=== PATIENT | female | born 1995 | race Caucasian/White ===

== ENCOUNTER 2017-09-16 23:30 | Emergency (ER) | payer OTHER, MEDICAID, SELFPAY ==
[2017-09-16 23:30] VITALS: BP 143/88; PULSE 74; RESP 16; TEMP 36.3; O2SAT 97; BMI 35.2
--- NOTE | 2017-09-16 23:50 | ED.VISSUMM ---
- ER Visit Summary Date of Service: 09/16/17 Chief Complaint: [] Left-sided rib and hip pain History of Present Illness: The patient is a 22 F patient tripped and slid down the steps 2 days ago and having pain in her left lateral ribs and hip. She has been using intermittent ibuprofen with moderate relief of symptoms. Comes in for further evaluation. She wanted to make sure that she did not do any significant damage as she works in a [employer]. Denies any other complaints Physical Examination: [] Vital signs reviewed General: Well-nourished well-developed Head: Normocephalic atraumatic Eyes: Pupils equal round and reactive to light extraocular movements intact ENT: TMs clear no hemotympanum no trauma Neck: Nontender full range of motion Cardiovascular: Regular rate rhythm no murmurs normal S1-S2 Respiratory: No distress clear to auscultation bilaterally chest nontender Abdomen: Soft nontender nondistended normal bowel sounds no masses Back: Mild tenderness left lateral iliac crest and left lateral ribs without swelling deformity. But no bony step-off or crepitus. Extremities: Nontender active range of motion ?4 extremities no trauma Skin: Normal color no trauma Neuro alert oriented cranial nerves II through XII intact normal strength sensation reflexes Test Results: [] Emergency Department Course and Treatment: [] I believe the patient just has contusions. Discussed x-rays but I do not feel they are necessary. Given a shot of Toradol. She will continue symptomatic management was given lifting restrictions Treatment Plan: [] Disposition: [] Impression: [] Left-sided rib pain after fall Left-sided hip pain after fall This note was generated with [employer] dictation software. It may contain incorrect words, spelling, and punctuation that were not noted in review of the chart prior to signing ED Disposition - Plan for ED Patient: Chief Complaint: Fall Referrals: Austin Castro MD [Primary Care Provider] -
--- NOTE | 2017-09-16 23:51 | ED.DEP ---
ED Disposition - Plan for ED Patient: Disposition: Home or Assisted Living Chief Complaint: Fall Instructions: Contusions (Bruises) Referrals: Austin Castro MD [Primary Care Provider] -
[2017-09-17] MEDS: Ketorolac 60 MG/2 ML Vial IM (00:07)
[2017-09-17 00:38] VITALS: RESP 18
== END 2017-09-17 00:38 | disposition home or self-care (01) ==
LOC: ED 09-17 00:09
PROVIDERS: Emergency Provider Emergency Medicine; Family Provider Family Medicine; PCP Family Medicine
DX: S70.02XA Contusion of left hip, initial encounter (principal); S20.212A Contusion of left front wall of thorax, initial encounter; M25.552 Pain in left hip; R07.81 Pleurodynia; E66.9 Obesity, unspecified; Z79.899 Other long term (current) drug therapy; W10.9XXA Fall (on) (from) unspecified stairs and steps, initial encounter; Y93.01 Activity, walking, marching and hiking; Y92.89 Other specified places as the place of occurrence of the external cause; Y99.8 Other external cause status
CPT/HCPCS: 96372; 99282

== ENCOUNTER → 2017-09-19 13:46 | Outpatient (CLI) | payer OTHER, MEDICAID, SELFPAY ==
[2017-09-19 15:30] LABS: Hematocrit 37.8 % (37-47); Hemoglobin 12.3 g/dl (12.0-15.0); Mean Corp Hgb Conc 32.5 g/gl (32-36); Mean Corpuscular Hgb 26.2 pg (27.0-32.0); Mean Corpuscular Volume 80.6 fL (81-99); Mean Platelet Vol. 11.6 fl (6.2-12.0); Platelet Count 238 K/mm3 (150-450); RBC Distribution Width CV 15.6 % (11.6-14.6); RBC Distribution Width SD 45.5 fl (35.1-43.9); Red Blood Count 4.69 M/mm3 (4.2-5.4); White Blood Count 8.3 K/mm3 (4.4-11.0)
[2017-09-19 15:36] LABS: Scan Indicated on CBC? Y/N NO
[2017-09-19 15:56] LABS: Ferritin 7 ng/mL (8-252); Iron 94 ug/dL (50-170); Iron Binding Capacity,Total 444 ug/dL (250-450)
== END ==
PROVIDERS: Family Medicine; Family Provider Family Medicine; PCP Family Medicine; Visit Provider Family Medicine
DX: D50.9 Iron deficiency anemia, unspecified (principal)
CPT/HCPCS: 36415; 82728; 83540; 83550; 85027

== ENCOUNTER 2017-10-09 00:16 | Emergency (ER) | payer OTHER, MEDICAID, SELFPAY ==
[2017-10-09 00:16] VITALS: BP 137/81; PULSE 78; RESP 14; TEMP 36.7; O2SAT 96; BMI 39.9
--- NOTE | 2017-10-09 00:39 | ED.VISSUMM ---
- ER Visit Summary Date of Service: 10/09/17 Chief Complaint: Back pain History of Present Illness: The patient is a 22 F with urinary frequency that started yesterday, which is common when she gets urinary tract infections, as his lack of dysuria, hematuria, abdominal pain. However today, she developed occasional throbbing in her low back, bilaterally. No nausea, vomiting, fevers. Last normal menstrual period was about 3 weeks ago, she is on control pills and is regular because of that, she has had no vaginal symptoms recently. Physical Examination: Well-appearing in no acute distress. Normal vital signs. Afebrile. Abdomen soft nontender nondistended. No CVA tenderness bilaterally. Test Results: Urinalysis consistent with infection. Emergency Department Course and Treatment: Reassured that I do not think she has pyelonephritis or kidney stone here. We will treat her for simple cystitis that is likely radiating pain into her back/kidney area, encouraged to return for any worsening symptoms. She is comfortable with that plan. Treatment Plan: Bactrim ?3 days Disposition: Discharge home Impression: Acute cystitis without hemorrhage This note was generated with [email or web address] dictation software. It may contain incorrect words, spelling, and punctuation that were not noted in review of the chart prior to signing ED Disposition - Plan for ED Patient: Disposition: Home or Assisted Living Chief Complaint: Flank Pain Instructions: ED UTI Cystitis Female Prescriptions: Sulfamethoxazole/Trimethoprim [Bactrim Ds Tablet] 1 ea PO BID #6 tab Referrals: Austin Castro MD [Primary Care Provider] - 3-5 Days if not improving
[2017-10-09 00:42] LABS: Mucous, Urine 0 SEEN /hpf (<or=2+); Red Blood Cells-Urine 0 SEEN /hpf (0-5)
[2017-10-09 00:50] LABS: Color, Urine Yellow (Yellow); Glucose, Dipstick Normal (Normal); Ketone-Dipstick Negative (Negative); Leukocyte Esterase-Dipstick 500 /ul (Negative); Nitrite-Dipstick Negative (Negative); Occult Blood-Urine Negative /ul (Negative); Protein-Dipstick 30 mg/dl (Negative); Urine Bilirubin Dipstick Negative (Negative); Urine Clarity Sl. Cloudy (Clear); Urine Urobilinogen Normal (Normal)
[2017-10-09 01:00] LABS: Bacteria 1+ /hpf (None Seen); Other Crystals-Urine 1+ STARCH /hpf (None Seen); Squamous Epithelial Cells - UA 5-10 SEEN /hpf (5-10); White Blood Cells 5-10 SEEN /hpf (0-5)
[2017-10-09] MEDS: Smz/Tmp Ds Tablet 1 TABLET PO (01:22)
[2017-10-09 01:23] VITALS: RESP 16
== END 2017-10-09 01:24 | disposition home or self-care (01) ==
LOC: ED 00:56
PROVIDERS: Emergency Provider Emergency Medicine; Family Provider Family Medicine; PCP Family Medicine
DX: N30.00 Acute cystitis without hematuria (principal); D64.9 Anemia, unspecified; F41.9 Anxiety disorder, unspecified; Z87.440 Personal history of urinary (tract) infections; Z79.899 Other long term (current) drug therapy
CPT/HCPCS: 81001; 99283

== ENCOUNTER 2017-10-28 00:38 | Emergency (ER) | payer OTHER, MEDICAID, SELFPAY ==
[2017-10-28 00:40] VITALS: BP 152/87; PULSE 89; RESP 18; TEMP 36.6; O2SAT 100; BMI 37.2
[2017-10-28 01:17] LABS: Bacteria 0 SEEN /hpf (None Seen); Mucous, Urine 0 SEEN /hpf (<or=2+); Red Blood Cells-Urine 0 SEEN /hpf (0-5)
[2017-10-28 01:27] LABS: Color, Urine Yellow (Yellow); Glucose, Dipstick Normal (Normal); Ketone-Dipstick Negative (Negative); Leukocyte Esterase-Dipstick 25 /ul (Negative); Nitrite-Dipstick Negative (Negative); Occult Blood-Urine 25 /ul (Negative); Protein-Dipstick 30 mg/dl (Negative); Specific Gravity, Urine 1.025 (1.002-1.030); Urine Bilirubin Dipstick Negative (Negative); Urine Clarity Clear (Clear); Urine Urobilinogen Normal (Normal)
[2017-10-28 01:30] LABS: Internal QC Validated? YES +Cl - CLEAR BKGD; Pregnancy, Urine Negative Negative
[2017-10-28 01:34] LABS: Squamous Epithelial Cells - UA 10-25 SEEN /hpf (5-10)
[2017-10-28 01:35] LABS: White Blood Cells 0-5 SEEN /hpf (0-5)
--- NOTE | 2017-10-28 01:45 | ED.VISSUMM ---
- ER Visit Summary Date of Service: 10/28/17 Chief Complaint: Hematuria History of Present Illness: The patient is a 22 F blood upon wiping after urination. Minimal abdominal cramping. No flank pain. No fever. No nausea or vomiting. No tobacco history. No history of kidney stones. History of UTI in the past. No other complaints. Physical Examination: General: Alert and oriented ?3, no acute distress HEENT: Normocephalic, atraumatic. Moist mucosa membranes Neck: supple, nontender. Cardiovascular: Regular rate and rhythm, no murmurs Respiratory: Normal breath sounds, symmetric, no distress Abdomen: Soft, nontender, nondistended, no guarding or rebound Back: No CVA tenderness. Extremities: Nontender, no edema, pulses intact ?4 Neuro: no focal neurological deficits. Test Results: HCG negative. UA with 25 leuks, blood of 25. Emergency Department Course and Treatment: Patient nontoxic, vital signs stable. No clinical presentation for concerns or kidney stones. HCG negative. UA noted leukocytes with hematuria. She be placed on 5 days of Keflex. She will be given follow-up with urology for hematuria if symptoms persist. Treatment Plan: [] Disposition: Discharge Impression: 1. UTI 2. Hematuria This note was generated with [facility] dictation software. It may contain incorrect words, spelling, and punctuation that were not noted in review of the chart prior to signing ED Disposition - Plan for ED Patient: Disposition: Home or Assisted Living Chief Complaint: Complaint Diagnosis: UTI (urinary tract infection), Hematuria Instructions: ED UTI Cystitis Female, ED Hematuria Prescriptions: Cephalexin [Keflex] 500 mg PO BID #10 capsule Referrals: Austin Castro MD [Primary Care Provider] - Jeff Stanley MD [STAFF PHYSICIAN] - 5-7 Days
[2017-10-28] MEDS: Cephalexin 250 MG Capsule 500 MG PO (01:58)
[2017-10-28 02:00] VITALS: PULSE 86; RESP 16; O2SAT 98
== END 2017-10-28 02:00 | disposition home or self-care (01) ==
PROVIDERS: Emergency Provider Emergency Medicine; Family Provider Family Medicine; PCP Family Medicine
DX: N39.0 Urinary tract infection, site not specified (principal); R31.9 Hematuria, unspecified; Z87.440 Personal history of urinary (tract) infections; Z79.899 Other long term (current) drug therapy
CPT/HCPCS: 81001; 81025; 99283

== ENCOUNTER 2017-11-05 08:54 | Emergency (ER) | payer OTHER, MEDICAID, SELFPAY ==
[2017-11-05 08:55] VITALS: BP 139/65; PULSE 83; RESP 17; TEMP 36.7; O2SAT 98; BMI 37.5
--- NOTE | 2017-11-05 09:05 | ED.VISSUMM ---
- ER Visit Summary Date of Service: 11/05/17 Chief Complaint: Upper abdominal pain History of Present Illness: The patient is a 22 F [place]ent[place] to the emergency department with upper abdominal pain. The patient states that she ate [employer] at about 11 PM last night. She states that she woke rather suddenly at about 2 AM. She had a sharp stabbing pain in the midepigastric area. She had mild nausea. She denies any vomiting. States the pain really has not subsided. She tried belching. She has not taken anything for the pain. She states that she is not really had pain like this before. She states that she was looking on the Internet and was concerned she may have pancreatitis. Only past surgical history is significant for prior . There is no family history of Crohn's disease or ulcerative colitis. She denies any change in bowel movements. Physical Examination: Vital signs reviewed General: Well-nourished, well-developed Head: Normocephalic, atraumatic Eyes: Pupils equal and reactive, extraocular muscles intact Neck, supple, no lymphadenopathy Heart: Regular rate and rhythm Respiratory: No distress, clear bilaterally Abdomen: Soft, minimally tender in the midepigastric area without rebound or guarding, negative Pierce sign, nondistended, no peritoneal signs Back: Nontender Extremities: Nontender, no edema, no cords Skin: Normal color no rash Neuro: Alert and oriented, no focal or lateralizing deficits Test Results: [] Emergency Department Course and Treatment: The patient had very minimal tenderness in the midepigastric area. IV was established. She is given fluids, Zofran, GI cocktail. She did have some improvement of her symptoms. Screening labs including liver and lipase are unremarkable. On reevaluation she is resting comfortably. I do feel this is more likely inflammation of the stomach lining. The patient was placed on Pepcid and Bentyl. She will be given Zofran for nausea control. She was counseled on concerning symptoms, foods to avoid, dietary counseling, and reasons to return. She will be discharged home. Treatment Plan: [] Disposition: Discharge Impression: 1. Gastritis This note was generated with [employer] software. It may contain incorrect words, spelling, and punctuation that were not noted in review of the chart prior to signing ED Disposition - Plan for ED Patient: Chief Complaint: Abd Pain Instructions: ED PUD Vs Gastritis Prescriptions: Ondansetron [Zofran Odt] 4 mg PO Q8H PRN PRN #10 tab PRN Reason: Nausea Dicyclomine HCl [Bentyl] 20 mg PO TIDAC #20 cap Famotidine [Pepcid] 20 mg PO BID #28 tab Referrals: Austin Castro MD [Primary Care Provider] -
[2017-11-05] MEDS: 0.9% Normal Saline 1,000 ML 125 ML IV (09:21)
[2017-11-05] MEDS: Ondansetron 4 MG/2 ML Vial IV (09:22)
[2017-11-05 09:35] LABS: Absolute Lymphocyte Count 1.77 X10^3/ul (0.83-4.51); Absolute Neutrophil Count 4.1 X10^3/uL (2.0-7.7); Basophil# 0.03 X10^3/uL; Basophil% 0.5 % (0-1); Eosinophil# 0.16 X10^3/uL; Eosinophils% 2.4 % (0-5); Hematocrit 37.8 % (37-47); Hemoglobin 12.1 g/dl (12.0-15.0); Lymphocyte # 1.77 X10^3/ul (4.0); Mean Corpuscular Hgb 26.8 pg (27.0-32.0); Mean Corpuscular Volume 83.6 fL (81-99); Mean Platelet Vol. 10.7 fl (6.2-12.0); Monocyte# 0.46 X10^3/uL; Neutrophil # 4.13 X10^3/uL (2.7-7.7); Neutrophil % 63.1 % (47-70); Platelet Count 255 K/mm3 (150-450); RBC Distribution Width CV 14.9 % (11.6-14.6); RBC Distribution Width SD 45.1 fl (35.1-43.9); Red Blood Count 4.52 M/mm3 (4.2-5.4); White Blood Count 6.6 K/mm3 (4.4-11.0)
[2017-11-05 09:36] LABS: POSITIVE COUNT NO; POSITIVE DIFFERENTIAL NO; POSITIVE MORPHOLOGY NO
[2017-11-05 09:47] LABS: ALB/GLOB Ratio 0.7 RATIO (0.9-2.4); AST(SGOT) 13 U/L (15-37); Alanine Aminotransfer ALT/SGPT 16 U/L (13-56); Albumin, Serum 3.1 g/dL (3.2-5.0); Alkaline Phosphatase 98 U/L (45-117); Anion Gap 8 (5-15); BUN 10 mg/dL (7-18); BUN/Creat Ratio 18.1 RATIO (10-20); Calcium,Total 8.4 mg/dL (8.5-10.1); Chloride 105 mmol/L (98-107); Creatinine, Serum 0.55 mg/dL (0.55-1.02); EST Glomerular Filtration Rate 148 mL/min (>60); Est Glom Filt Rate - Afr Amer 180 mL/min (>60); Estimated Creatinine Clearance 140.89 ml/min; Globulin 4.5 g/dL (2.2-4.2); Glucose 86 mg/dL (74-106); Lipase 106 U/L (73-393); Potassium 4.2 mmol/L (3.5-5.1); Protein, Total 7.6 g/dL (6.4-8.2); Sodium Level 141 mmol/L (136-145)
[2017-11-05 10:09] VITALS: BP 99/62; PULSE 78; RESP 16; O2SAT 98
== END 2017-11-05 10:10 | disposition home or self-care (01) ==
PROVIDERS: Emergency Provider Emergency Medicine; Family Provider Family Medicine; PCP Family Medicine
DX: K29.70 Gastritis, unspecified, without bleeding (principal); F41.9 Anxiety disorder, unspecified; Z79.899 Other long term (current) drug therapy
CPT/HCPCS: 80053; 83690; 85025; 96361; 96374; 99284; J7030; J2405

== ENCOUNTER 2017-11-20 16:47 | Emergency (ER) | payer OTHER, MEDICAID, SELFPAY ==
[2017-11-20 16:48] VITALS: BP 125/78; PULSE 79; RESP 16; TEMP 36.8; O2SAT 99; BMI 37.2
[2017-11-20 16:52] VITALS: O2SAT 99
--- NOTE | 2017-11-20 16:59 | EKG12_ITS ---
Test Reason : SOB Blood Pressure : / mmHG Vent. Rate : 077 BPM Atrial Rate : 077 BPM P-R Int : 156 ms QRS Dur : 092 ms QT Int : 368 ms P-R-T Axes : 039 016 026 degrees QTc Int : 416 ms Normal sinus rhythm with sinus arrhythmia Normal ECG Confirmed by ASHLEY FORD, CHAZ ([id number]), index editor RASHIDA SANTOS ([id number] on 11/23/2017 1:32:04 PM Referred By: JAIR Confirmed By:CHAZ RAMIREZ MD
--- NOTE | 2017-11-20 16:59 | ED.VISSUMM ---
- ER Visit Summary Date of Service: 11/20/17 Chief Complaint: Dyspnea History of Present Illness: The patient is a 22 F worsening dyspnea since this morning. No cough or wheeze. No fevers. Symptoms worse with exertion with tightness. No leg pain or cramps. Remote tobacco 1 year ago. Patient is on oral control with estrogen. No recent travel, or immobilizations. Had a 7 months ago. No family history of clotting disorders. No history of PE or DVT. Physical Examination: General: Alert and oriented ?3, no acute distress HEENT: Normocephalic, atraumatic. Moist mucosa membranes Neck: supple, nontender. Cardiovascular: Regular rate and rhythm, no murmurs Respiratory: Normal breath sounds, symmetric, no distress Abdomen: Soft, nontender, nondistended Extremities: Nontender, no edema, pulses intact ?4 Neuro: no focal neurological deficits. Test Results: EKG sinus rate of [address]-T wave changes. Hemoglobin 13.5. HCG negative. D-dimer -0.49. Chest x-ray: No acute process Emergency Department Course and Treatment: Patient vitals stable concerns for exertional dyspnea. Low risk Wells criteria are for PE due to being on estrogen. D-dimer obtained negative range. Labs chest x-ray EKG normal. Patient is reassured. Follow-up with PCP. She return if any worsening symptoms. All questions were answered. Treatment Plan: [] Disposition: Discharge Impression: 1. Dyspnea This note was generated with [employer] dictation software. It may contain incorrect words, spelling, and punctuation that were not noted in review of the chart prior to signing ED Disposition - Plan for ED Patient: Disposition: Home or Assisted Living Chief Complaint: Shortness of Breath Diagnosis: Shortness of breath Instructions: ED Dyspnea Shortness of Breath Referrals: Austin Castro MD [Primary Care Provider] - 3-5 Days if not improving
[2017-11-20 17:48] LABS: Absolute Lymphocyte Count 1.82 X10^3/ul (0.83-4.51); Absolute Neutrophil Count 5.4 X10^3/uL (2.0-7.7); Basophil# 0.03 X10^3/uL; Basophil% 0.4 % (0-1); Eosinophil# 0.14 X10^3/uL; Eosinophils% 1.8 % (0-5); Hematocrit 41.5 % (37-47); Hemoglobin 13.5 g/dl (12.0-15.0); Lymphocyte # 1.82 X10^3/ul (4.0); Lymphocyte % 22.9 % (19-41); Mean Corp Hgb Conc 32.5 g/gl (32-36); Mean Corpuscular Hgb 26.5 pg (27.0-32.0); Mean Corpuscular Volume 81.5 fL (81-99); Mean Platelet Vol. 11.3 fl (6.2-12.0); Monocyte# 0.53 X10^3/uL; Monocyte% 6.7 % (0-10); Neutrophil # 5.41 X10^3/uL (2.7-7.7); Neutrophil % 68.1 % (47-70); Platelet Count 267 K/mm3 (150-450); RBC Distribution Width CV 14.3 % (11.6-14.6); RBC Distribution Width SD 42.4 fl (35.1-43.9); Red Blood Count 5.09 M/mm3 (4.2-5.4); White Blood Count 7.9 K/mm3 (4.4-11.0)
[2017-11-20 17:53] LABS: POSITIVE COUNT NO; POSITIVE DIFFERENTIAL NO; POSITIVE MORPHOLOGY NO
[2017-11-20 17:55] LABS: Anion Gap 7 (5-15); BUN 8 mg/dL (7-18); Calcium,Total 9.1 mg/dL (8.5-10.1); Chloride 104 mmol/L (98-107); Creatinine, Serum 0.62 mg/dL (0.55-1.02); EST Glomerular Filtration Rate 131 mL/min (>60); Est Glom Filt Rate - Afr Amer 159 mL/min (>60); Estimated Creatinine Clearance 119.73 ml/min; Glucose 101 mg/dL (74-106); Potassium 3.8 mmol/L (3.5-5.1); Sodium Level 139 mmol/L (136-145)
[2017-11-20 17:56] LABS: D-Dimer Quantitative (DVT/PE) 0.49 FEU/ug/m (0.27-0.49)
--- NOTE | 2017-11-20 18:01 | RAD_ITS ---
STUDY: X-RAY CHEST REASON FOR EXAM: Female, 22 years old. Shortness of breath TECHNIQUE: Frontal and lateral views of the chest were obtained. COMPARISON: None. FINDINGS: The lungs are underaerated. There are no focal airspace opacities. There is no demonstrated pleural abnormality. The cardiac silhouette is normal in size. The mediastinum and hilar regions are unremarkable. Normal visualized pulmonary arteries. Normal visualized aortic arch and descending thoracic aorta. The thoracic spine is unremarkable. The visualized ribs, clavicles, and shoulders are unremarkable. There is no demonstrated abnormality of the visualized upper abdomen. RAD/Chest PA and Lateral IMPRESSION: No acute cardiopulmonary abnormalities. Electronically Signed: Gabriela Medina MD at 19:00 EDT Tel Direct: [phone], Service support ,
[2017-11-20 18:11] LABS: Pregnancy, Serum, hCG Quali. NEGATIVE Negative (0-9 Nonpreg)
[2017-11-20 19:24] VITALS: BP 128/76; PULSE 77; RESP 18; O2SAT 98
== END 2017-11-20 19:25 | disposition home or self-care (01) ==
PROVIDERS: Emergency Provider Emergency Medicine; Family Provider Family Medicine; PCP Family Medicine
DX: R06.00 Dyspnea, unspecified (principal); K21.9 Gastro-esophageal reflux disease without esophagitis; F32.9 Major depressive disorder, single episode, unspecified; F41.9 Anxiety disorder, unspecified; Z87.891 Personal history of nicotine dependence; Z79.899 Other long term (current) drug therapy
CPT/HCPCS: 71046; 80048; 84703; 85025; 85379; 93005; 99283; A4216

== ENCOUNTER 2018-01-14 07:04 | Emergency (ER) | payer OTHER, MEDICAID, SELFPAY ==
[2018-01-14 07:05] VITALS: BP 154/85; PULSE 82; RESP 16; TEMP 36.1; O2SAT 97; BMI 37.8
[2018-01-14] MEDS: LORazepam 1 MG Tablet PO (07:37)
--- OUTSIDE RECORDS SUMMARY | 2018-01-14 07:51 | XMS RPT_ITS ---
:1995 Author Organization OHIP Support Name Relationship Address Phone ENMA BUSTOS Unavailable Unavailable + [facility] Unavailable [address] + [place] [address] KACI HARMAN Unavailable [address] + [address] [place] [address] [facility] Unavailable [address] + [place] [address] KACI HARMAN Unavailable [address] + [address] [place] [address] [facility] Unavailable [address] + [place] [address] KACI HARMAN Unavailable [address] + [address] [place] [address] [facility] Unavailable [address] + [place] [address] KACI HARMAN Unavailable [address] + [address] [place] [address] [facility] Unavailable [address] + [place] [address] KACI HARMAN Unavailable [address] + [address] [place] [address] [facility] Unavailable [address] + [place] [address] KACI HARMAN Unavailable [address] + [address] [place] [address] [facility] Unavailable [address] + [place] [address] KACI HARMAN Unavailable [address] + [address] [place] [address] [facility] Unavailable [address] + [place] [address] KACI HARMAN Unavailable [address] + [address] [place] [address] [facility] Unavailable [address] + [place] [address] KACI HARMAN Unavailable [address] + [address] [place] [address] [facility] Unavailable [address] + [place] [address] KACI HARMAN Unavailable [address] + [address] [place] [address] [facility] Unavailable [address] + [place] [address] KACI HARMAN Unavailable [address] + [address] [place] [address] [facility] Unavailable [address] + [place] [address] KACI HARMAN Unavailable [address] + [address] [place] [address] [facility] Unavailable [address] + [place] [address] KACI HARMAN Unavailable [address] + [address] [place] [address] [facility] Unavailable [address] + [place] [address] [facility] Unavailable [address] + [place] [address] KACI HARMAN Unavailable [address] + [address] [place] [address] [facility] Unavailable [address] + [place] [address] KACI HARMAN Unavailable [address] + [address] [place] [address] [facility] Unavailable [address] + [place] [address] IDRIS HARMANA Unavailable [address] + [address] [place] [address] [facility] Unavailable [address] + [place] [address] KACI HARMAN Unavailable [address] + [address] [place] [address] [facility] Unavailable [address] + [place] [address] KACI HARMAN Unavailable [address] + [address] [place] [address] [facility] Unavailable [address] + [place] [address] GHAZAL KACI Unavailable [address] + [address] [place] [address] [facility] Unavailable [address] + [place] [address] KACI HARMAN Unavailable [address] + [address] [place] [address] [facility] Unavailable [address] + [place] [address] IDRIS HARMANA Unavailable [address] + [address] [place] [address] [facility] Unavailable [address] + [place] [address] GHAZAL KACI Unavailable [address] + [address] [place] [address] [facility] Unavailable [address] + [place] [address] KACI HARMAN Unavailable [address] + [address] [place] [address] Care Team Providers Name Role Phone ALEXANDRE WATTERS Attending Unavailable GABRIELA OLIVA Referring Unavailable ALEXANDRE WATTERS Referring Unavailable BUSHRA WHITE Attending Unavailable GABRIELA OLIVA Referring Unavailable SOFÍA ESTEBAN (MEAT INSPECTOR) Referring Unavailable ALEXANDRE WATTERS Referring Unavailable TIMUR SANTILLAN (CNM) Attending Unavailable GABRIELA OLIVA Referring Unavailable MASSIMO SIMS Attending Unavailable DANA PINA Attending Unavailable GABRIELA OLIVA Referring Unavailable BUSHRA WHITE Attending Unavailable GABRIELA OLIVA Referring Unavailable MONIQUE WASHINGTON DANA Attending Unavailable ALEXANDRE WATTERS Attending Unavailable APPLE ZAMARRIPA (PA) Attending Unavailable BUSHRA WHITE Attending Unavailable RANJITH BUTCHER (CNM) Attending Unavailable AURELIANO SIMEON (TESSIE-C) Referring Unavailable VAISHALI ROSALES (CN) Attending Unavailable ALEXANDRE WATTERS Attending Unavailable BUSHRA WHITE Attending Unavailable BUSHRA WHITE Referring Unavailable VAISHALI ROSALES (CN) Attending Unavailable ALEXANDRE WATTERS Attending Unavailable NEKARYNT PADMINI, DANA Attending Unavailable NEMITRA WASHINGTON, DANA Referring Unavailable ALEXANDRE WATTERS Attending Unavailable ALEXANDRE WATTERS Referring Unavailable VAISHALI ROSALES ([facility]) Referring Unavailable BUSHRA WHITE Attending Unavailable ALEXANDRE WATTERS Referring Unavailable Bushra White Attending Unavailable [facility] Unavailable Kin Lucas Attending Unavailable [facility] Un[facility] Primary [facility] Unavailable Bushra White Attending Unavailable [facility] Unavailable Bushra White Attending Unavailable Alexandre Watters Attending Unavailable [facility] Primary [facility] Unavailable Adam, Kishore Primary Care Unavailable Monique-Padmini, Dana Attending Unavailable [facility] Primary [facility] Unavailable Nekarynt-Washington, Dana Attending Unavailable Adam, Kishore Primary Care Unavailable Bushra White Attending Unavailable Adam, Kishore Primary Care Unavailable Alexandre Watters Attending Unavailable Nekarynt-Padmini, Dana Admitting Unavailable SchinnerTommy E Attending Unavailable Schinner, Tommy E Primary Care Unavailable Corbin Phillips Attending Unavailable Reggie Raya Attending Unavailable Schinner, Tommy E Referring Unavailable Schinner, Tommy E Primary Care Unavailable Corbin Phillips Attending Unavailable Schinner, Tommy E Attending Unavailable Schinner, Tommy E Primary Care Unavailable Raf Jarrett Attending Unavailable Schinner, Tommy E Referring Unavailable Wil Farr Attending Unavailable Schinner, Tommy E Primary Care Unavailable Schinner, Tommy E Attending Unavailable Schinner, Tommy E Primary Care Unavailable TAE CAMPBELL Attending Unavailable Schinner, Tommy E Primary Care Unavailable Reggie Raya Attending Unavailable Schinner, Tommy E Referring Unavailable SchinTommy beaulieu Primary Care Unavailable Johny Wolfe Attending Unavailable SchinTommy beaulieu Primary Care Unavailable Kin Lucas Attending Unavailable SchinTommy beaulieu Primary Care Unavailable Johny Wolfe Attending Unavailable Schinchristofer, Tommy Estevez Primary Care Unavailable Kolby Raf Attending Unavailable SchinTommy beaulieu Referring Unavailable Schinchristofer, Tommy E Primary Care Unavailable Gabriela Goldstein Attending Unavailable SchinTommy beaulieu Primary Care Unavailable PROBLEMS PROBLEMS DATE TYPE CONDITION / CODE ATTENDING STATUS SOURCE 10/19/2017 Unknown R30.0 - Dysuria / ArnulfoReggie ivey Active [place] R30.0(ICD-10) [facility] Hospital Repository 10/11/2017 Unknown D50.9 - Iron Tommy Castro Active [place] deficiency anemia, E Community unspecified / Hospital D50.9(ICD-10) Repository 10/11/2017 Unknown R07.81 - Pleurodynia Shundry, Active [place] / R07.81(ICD-10) [facility] Repository 01/02/2018 Unknown J01.00 - Acute Raf Jarrett Active [place] maxillary sinusitis, Community unspecified / Hospital J01.00(ICD-10) Repository 01/02/2018 Unknown J01.90 - Acute Raf Jarrett Active [place] sinusitis, Community unspecified / Hospital J01.90(ICD-10) Repository 10/11/2017 Unknown D64.9 - Anemia, Tommy Castro Active [place] unspecified / E Community D64.9(ICD-10) Hospital Repository 12/16/2017 Unknown N39.0 - Urinary tract ArnulfoReggie ivey Active [place] infection, site not Community specified / Hospital N39.0(ICD-10) Repository 10/11/2017 Unknown J02.9 - Acute Alan Corbin Active [place] pharyngitis, Community unspecified / Hospital J02.9(ICD-10) Repository 05/24/2017 Unknown ANEMIA, UNSPECIFIED / Tommy Castro Active [place] D64.9(ICD-10) E [facility] Hospital Repository 05/24/2017 Unknown MAJOR DEPRESSIVE Tommy Castro Active [place]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, SINGLE E Community EPISODE, UNSPECIFIED Hospital / F32.9(ICD-10) Repository 05/24/2017 Unknown OBESITY, UNSPECIFIED Tommy Castro Active [place] / E66.9(ICD-10) E [facility] Hospital Repository 05/24/2017 Unknown BODY MASS INDEX (BMI) Tommy Castro Active [place] 30.0-30.9, ADULT / E Community Z68.30(ICD-10) Hospital Repository 05/09/2017 Active Unspecified injury of NA Active [place] left lower leg, Clinic Main initial encounter / [place] S89.92XA(ICD-10) Repository 05/20/2017 Unknown FAILED MEDICAL Duong, Active [place] INDUCTION OF LABOR / Alexandre Community O61.0(ICD-10) Hospital Repository 05/20/2017 Unknown ACUTE POSTHEMORRHAGIC [place], Active [place] ANEMIA / D62(ICD-10) [facility] Hospital Repository 05/20/2017 Unknown BODY MASS INDEX (BMI) [place], Active [place] 40.0-44.9, ADULT / [place] Community Z68.41(ICD-10) Hospital Repository 05/20/2017 Unknown SECONDARY UTERINE [place], Active [place] INERTIA / [place] Community O62.1(ICD-10) Hospital Repository 05/20/2017 Unknown OBESITY COMPLICATING [place], Active [place] CHILDBIRTH / [place] O99.214(ICD-10) Hospital Repository 05/20/2017 Unknown LABOR AND DELIVERY [place], Active [place] COMPLICATED BY [place] MECONIUM IN AMNIOTIC Hospital FLUID / O77.0(ICD-10) Repository 05/20/2017 Unknown 39 WEEKS GESTATION OF [place], Active [place] / [place] Community Z3A.39(ICD-10) Hospital Repository 05/20/2017 Unknown SINGLE LIVE / [place], Active [place] Z37.0(ICD-10) [facility] Hospital Repository 05/20/2017 Unknown ANEMIA OF THE [place], Active [place] PUERPERIUM / [facility] Community O90.81(ICD-10) Hospital Repository 05/20/2017 Unknown OTHER MENTAL Du[place], Active [place] DISORDERS Alexandre [facility] COMPLICATING THE Hospital PUERPERIUM / Repository O99.345(ICD-10) 05/20/2017 Unknown ANXIETY DISORDER, [place], Active [place] UNSPECIFIED / [facility] Community F41.9(ICD-10) Hospital Repository 05/20/2017 Unknown PERSONAL HISTORY OF [place], 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 / Alexandre [facility] Z87.891(ICD-10) Hospital Repository 04/11/2017 Active 39 weeks gestation of NA Active [place] / Clinic Main Z3A.39(ICD-10) [place] Repository 04/11/2017 Active Persistent NA Active [place] proteinuria, Clinic Main unspecified / [place] R80.1(ICD-10) Repository 05/20/2017 Unknown DIARRHEA, UNSPECIFIED Neyhart-McIntos Active [place] / R19.7(ICD-10) [facility] Hospital Repository 05/20/2017 Unknown UNSP INFCT OF URINARY Neyhart-McIntos Active [place] TRACT IN , [facility] THIRD TRIMESTER / Hospital O23.43(ICD-10) Repository 05/20/2017 Unknown FALSE LABOR AT OR [place], Active [place] AFTER 37 COMPLETED [facility] WEEKS OF GESTATION / Hospital O47.1(ICD-10) Repository 05/20/2017 Unknown 38 WEEKS GESTATION OF Duong Active [place] / [facility] Z3A.38(ICD-10) Hospital Repository 05/20/2017 Unknown OTH RELATED Jose Bushra Active [place] CONDITIONS, Community UNSPECIFIED TRIMESTER Hospital / O26.899(ICD-10) Repository 05/20/2017 Unknown NAUSEA / Bushra White Active [place] R11.0(ICD-10) [facility] Hospital Repository 05/20/2017 Unknown FALSE LABOR, Bushra White Active [place] UNSPECIFIED / Community O47.9(ICD-10) Hospital Repository 05/20/2017 Unknown WEEKS OF GESTATION OF Bushra White Active [place] NOT Community SPECIFIED / Hospital Z3A.00(ICD-10) Repository 05/20/2017 Unknown CONTUSION OF RIGHT Kin Lucas Active [place] KNEE, INITIAL Community ENCOUNTER / Hospital S80.01XA(ICD-10) Repository 05/20/2017 Unknown CONTUSION OF RIGHT Kin Lucas Active [place] FOOT, INITIAL Community ENCOUNTER / Hospital S90.31XA(ICD-10) Repository 05/20/2017 Unknown FALL SAME LEV FROM Kin Lucas Active [place] SLIP/TRIP W/O STRIKE Community AGAINST OBJECT, INIT Hospital / W01.0XXA(ICD-10) Repository 05/20/2017 Unknown OTH PLACES THE Kin Lucas Active [place] PLACE OF OCCURRENCE Community OF THE EXTERNAL CAUSE Hospital / Y92.89(ICD-10) Repository 05/20/2017 Unknown UNSPECIFIED EXTERNAL ShayyKin Active [place] CAUSE STATUS / Community Y99.9(ICD-10) Hospital Repository 05/20/2017 Unknown OTH RELATED Bushra White Active [place] CONDITIONS, THIRD Community TRIMESTER / Hospital O26.893(ICD-10) Repository 05/20/2017 Unknown UNSPECIFIED INJURY OF Bushra White Active [place] ABDOMEN, INITIAL Community ENCOUNTER / Hospital S39.91XA(ICD-10) Repository 05/20/2017 Unknown LABOR WITHOUT Bushra White Active [place] DELIVERY, THIRD Community TRIMESTER / Hospital O60.03(ICD-10) Repository 05/20/2017 Unknown 34 WEEKS GESTATION OF Bushra White Active [place] / Community Z3A.34(ICD-10) Hospital Repository 05/20/2017 Unknown UNSPECIFIED FALL, Bushra White Active [place] INITIAL ENCOUNTER / Community W19.XXXA(ICD-10) Hospital Repository 05/20/2017 Unknown ACTIVITY, UNSPECIFIED Bushra White Active [place] / Y93.9(ICD-10) [facility] Hospital Repository 05/20/[address] [facility] Active [place] NON-INSTITUT Community (PRIVATE) RESIDENCE Hospital PLACE / Repository Y92.009(ICD-10) 05/20/2017 Unknown OTHER EXTERNAL CAUSE Bushra White Active [place] STATUS / Community Y99.8(ICD-10) Hospital Repository 02/01/2017 Active Abnormal glucose NA Active [place] complicating [facility] Main / [place] O99.810(ICD-10) Repository 02/01/2017 Active Encounter for BUSHRA WHITE Active [place] supervision of normal Clinic Main first , [place] third trimester / Repository Z34.03(ICD-10) 02/01/2017 Active 30 weeks gestation of BUSHRA WHITE Active [place] / Clinic Main Z3A.30(ICD-10) [place] Repository 01/19/2017 Active Encounter for NA Active [place] supervision of other Clinic Main normal , [place] unspecified trimester Repository / Z34.80(ICD-10) 01/19/2017 Active 28 weeks gestation of NA Active [place] / Clinic Main Z3A.28(ICD-10) [place] Repository 01/19/2017 Active Encounter for NA Active [place] immunization / Clinic Main Z23(ICD-10) [place] Repository 01/19/2017 Active Unknown / DUONG Active [place] UNK(Unknown) ALEXANDRE Arevalo Clinic Main [place] Repository PROCEDURES PROCEDURES No Procedure Records FoundRESULTS RESULTS URGENT CARE VISIT Observed: 11/29/2017 Status: F Source: [place] REPORT 1:29 PM [facility] REPOSITORY Now [id number] [id number] VISITDate of Service: 11/29/17MR#: [id number] Acct: [id number]: CEDRIC HARMAN Rep #: [id number]: 1995 Provider: Raf Clark/Sex: 22/F Location: [facility].NOWStatus: SignedIntakeVital Signs11/29/17 Height 5 ft 3 inIntakeVisit Reasons: EAR ACHE , BURNING WHEN COUGHAllergiesNo Known Allergies Allergy (Verified 11/29/17 12:55)MedicationsDicyclomine HCl [Bentyl] 20 mg PO TIDAC #20 cap 11/05/17 [Rx Confirmed 11/29/17]Famotidine [Pepcid] 20 mg PO BID #28 tab 11/05/17 [Rx Confirmed 11/29/17]Fluoxetine [Prozac] 60 mg PO DAILY 11/05/17 [History Confirmed 11/29/17]Hydroxyzine Pamoate [Vistaril] 25 mg PO BID PRN PRN 11/05/17 [History Confirmed 11/29/17]Ondansetron [Zofran Odt] 4 mg PO Q8H PRN PRN #10 tab [Rx Confirmed 11/29/17]Norgestimate-Ethinyl Estradiol [Previfem] 1 tab PO DAILY 01/02 [History Confirmed 11/29/17]amoxicillin 500 mg capsule 1,000 mg PO BID 10 Days #40 cap 11/29/17 [Rx Confirmed 11/29/17]PFSHSocial HistorySmoking Status: Former smokeralcohol intake: currentHPIHPIDetails: CEDRIC HARMAN, is a 22 F who presents to the office today for bilateral ear pain,nasal congestion and cough. Patient states that she has had worsening allergy symptoms thisyear and has tried Flonase with little results. She has tried no other medications at thistime. She states that her cough has been dry nonproductive and denies hemoptysis, shortnessbreath or difficulty breathing. She does report the cough has led to a sore throat which isaggravated by swallowing. She reports that the ear pain is bilateral however denies anyotorrhea or hearing change/loss. She has had no fever, chills, sweats. No chest pain orshortness of breath. No other associated symptoms or alleviating/aggravating factors.ROSConstConstitutional: No fever(s), headache(s ), anorexia, chills or abnormal sleep patternENTENT: Positive for post nasal drip , sore throat, ear pain, nasal congestion and nasal discharge;no headache(s) RespRespiratory: No shortness of breathCardioCardiology: No irregular heart rhythm or palpitationsGastroGI: No nausea/dyspepsiaNeuroNeurology: No headache(s) or behavioral changesPsychPsychiatric: No abnormal sleep pattern, No behavioral changesExamConstGeneral: cooperative, healthy appearingHENMTHead: normal to inspectionEars: hearing grossly normal bilaterally, EAC's normal, TM abnormal bulging bilaterally anderythematous bilaterallyNose: external nose normal, nasal discharge clearMouth: oral mucosae normalThroat: abnormal tonsil bilaterallyRespEffort AND Inspection: normal respiratory effortAuscultation: Bilateral: Clear to AuscultationCardioPalpation: normal PMIRate: regular rateRhythm: regular rhythmNeuroGeneral: CN's II-XI intact bilaterally, alertPsychAppearance : grossly normalMental Status: mental status grossly normalAssessment AND PlanProblems1. Other acute nonsuppurative otitis media of both ears, recurrence not specified H65.193StatusAcutePlanAmoxicillin as prescribed today. Encouraged to get plenty of rest, drink lots of clearliquids, and use Tylenol or Ibuprofen ( unless contraindicated) for fever and comfort. Patientalso educated on other symptomatic management techniques. To be seen in 7-10 days if noimprovement; sooner if worsening of symptoms. Patient advised of potential red flags whenappropriate report to the ED. Patient verbalized understanding above.This note was generated with wiseri dictation software. It may contain incorrect words,spelling, and punctuation that were not noted in checking the note before signing.MedicationsNew:CodingLevel of Care CodeOff vis,est,level 3DiagnosesOther acute nonsuppurative otitis media of both ears, recurrence not specified H65.193Otitis media type: other nonsuppurativeChronicity: acuteLaterality: bilateralRecurrence: not specified as xvyuthfny56/15/18 1329 <Electronically signed by Raf KURTZ>Date Raf Jarrett PACosigner Signature: Date (if applicable)CC: 12 LEAD ELECTROCARDIOGRAM Observed: 11/23/2017 Status: F Source: [place] 1:32 PM [facility] RE[facility]ITORY [facility]ITAL[facility] [address] [place], [place] [id number] Lead EKG011/20/17 1712#: [id number] Acct: [id number]: CEDRIC HARMAN Rep #: [id number]: 1995 22 From: Nikolay Marley MDAttaudrey Dr: Status: DEP EROrdering Dr: Johny Wolfe DO Date: 11/20/17Location: ED Sex: F CAdmitted:Test Reason : SOBBlood Pressure : / mmHGVent. Rate : 077 BPM Atrial Rate : 077 BPMP-R Int : 156 ms QRS Dur : 092 msQT Int : 368 ms P-R-T Axes : 039 016 026 degreesQTc Int : 416 msNormal sinus rhythm with sinus arrhythmiaNormal ECGConfirmed by NIKOLAY MARLEY MD ([id number]), development editor RASHIDA SANTOS ([id number]) on 11/23/2017 1:32:04 PMReferred By : JAIR Confirmed By:NIKOLAY MARLEY MD11/23/17 1332Date Nikolay Marley MDCC: Tommy Castro MD; Johny Stoner EMERGENCY DEPARTMENT Observed: 11/20/2017 Status: F Source: [place] SUMMARY 7:15 PM [facility] REPOSITORY [facility]ITALMedical Records [id number] [place] [address]Csurssjac Department Sazqmua41/06/18 1659MR#: [id number] Acct: [id number]: CEDRIC HARMAN Rep #: [id number]: 1995 22 From: Johny Wolfe DOPCP: Tommy Castro MD Status: REG ER- ER Visit SummaryDate of Service: 11/20/17Chief Complaint: DyspneaHistory of Present Illness: The patient is a 22 F worsening dyspnea since this morning. Nocough or wheeze. No fevers. Symptoms worse with exertion with tightness. No leg pain orcramps. Remote tobacco 1 year ago. Patient is on oral control with estrogen. No recenttravel, or immobilizations. Had a 7 months ago. No family history of clottingdisorders. No history of PE or DVT.Physical Examination: General: Alert and oriented 3, no acute distressHEENT: Normocephalic, atraumatic. Moist mucosa membranesNeck: supple, nontender.Cardiovascular: Regular rate and rhythm, no murmursRespiratory: Normal breath sounds, symmetric, no distressAbdomen: Soft, nontender, nondistendedExtremities: Nontender, no edema, pulses intact 4Neuro: no focal neurological deficits.Test Results: EKG sinus rate of [address]-T wave changes. Hemoglobin 13.5. HCG negative.D-dimer -0.49. Chest x-ray: No acute processEmergency Department Course and Treatment: Patient vitals stable concerns for exertionaldyspnea. Low risk Wells criteria are for PE due to being on estrogen. D-dimer obtainednegative range. Labs chest x-ray EKG normal. Patient is reassured. Follow-up with PCP. Julia if any worsening symptoms. All questions were answered.Treatment Plan: []Disposition: DischargeImpression: 1. DyspneaThis note was generated with Doktorburada.comation software. It may contain incorrect words, spelling, and punctuation that were not noted in review of the chart prior to signingED Disposition- Plan for ED Patient:Disposition: Home or Assisted LivingChief Complaint: Shortness of BreathDiagnosis:Shortness of breathInstructions: ED Dyspnea Shortness of BreathReferrals:Tommy Castro MD [Primary Care Provider] - 3-5 Days if not improvingWhat to do if you have ProblemsFor any increased pain, shortness of breath, bleeding, nausea or vomiting, chest pain, or anyunexpected problems, contact your Primary Care Provider. Call [facility] ([phone])or report to the closest Emergency Room.Call 911 if necessary.11/20/171914 <Electronically signed by Johny Castro>Date Johny Wolfe DOCosigner Signature (If Indicated): Date CC: Tommy Castro MD CHEST PA AND LATERAL Observed: 11/20/2017 Status: F Source: [place] 6:02 PM [facility] REPOSITORY [facility]OSPITALImagulf [facility] [address] [place] [address]Pvvjp PA and LateralMR#: [id number] Acct: [id number]: CEDRIC HARMAN Rep #: [id number]: 1995 F 22 From: Gabriela Medina MDPCP: Tommy Castro MD Status: REG ERStudy: Chest PA and Lateral Date of Exam: 11/20/17Exam# [id number] Ordering Dr: Johny Wolfe DOSTUDY: X-RAY CHESTREASON FOR EXAM: Female, 22 years old. Shortness of breathTECHNIQUE: Frontal and lateral views of the chest were obtained.COMPARISON: None. FINDINGS:The lungs are underaerated. There are no focal airspace opacities. Thereis no demonstrated pleural abnormality.The cardiac silhouette is normal in size. The mediastinum and hilarregions are unremarkable. Normal visualized pulmonary arteries. Normalvisualized aortic arch and descending thoracic aorta.The thoracic spine is unremarkable. The visualized ribs, clavicles, andshoulders are unremarkable.There is no demonstrated abnormality of the visualized upper abdomen. ORDER #: [id number] RAD/Chest PA and LateralIMPRESSION:No acute cardiopulmonary abnormalities.Electronically Signed:Gabriela Medina MD at 19:00 EDTTel Direct: [phone], Service support , OX: Tommy Castro MD; Johny Wolfe Lamination Inspector:Signed CBC W/DIFF, AUTOMATED Collected: 11/20/2017 Status: F Source: [place] 5:10 PM [facility] REPOSITORY TYPE CODE TESTS RESULT OUT OF RANGE REFERENCE UNITS LAB L100.1000 Normal 4.4-11.0 K/mm3 WBC 7.9 LAB L100.1200 Normal 4.2-5.4 M/mm3 RBC 5.09 LAB L100.1300 Normal 12.0-15.0 g/dl HGB 13.5 LAB L100.1400 Normal 37-47 % HCT 41.5 LAB L100.1500 Normal 81-99 fL MCV 81.5 LAB L100.1600 Low 27.0-32.0 pg MCH 26.5 LAB L100.1700 Normal 32-36 g/gl MCHC 32.5 LAB L100.1810 Normal 11.6-14.6 % RDW 14.3 CV LAB L100.1820 Normal 35.1-43.9 fl RDW 42.4 SD LAB L100.1900 Normal 150-450 K/mm3 PLT 267 LAB L100.2000 Normal 6.2-12.0 fl MPV 11.3 LAB L100.2100 Normal 47-70 % NEUT% 68.1 LAB L100.2200 Normal 19-41 % LY% 22.9 LAB L100.2300 Normal 0-10 % MONO% 6.7 LAB L100.2400 Normal 0-5 % EO% 1.8 LAB L100.2500 Normal 0-1 % BASO% 0.4 LAB L100.2550 Normal 0.0-0.9 % IM 0.100 GRAN % Result Comment: IG% - Immature Granulocytes (promyelocytes, myelocytes andmetamyelocytes) > 1% indicates that a LEFT SHIFT is Present. LAB L100.2620 Normal 2.0-7.7 X10 3/uL Absolute Neut 5.4 LAB L100.2720 Normal 0.83-4.51 X10 3/ul Absolute Lymph 1.82 Performed By: #### L100.0100 ####[facility] [address] [place], [address] BASIC METABOLIC Collected: 11/20/2017 Status: F Source: [place] PROFILE (BMP) 5:10 PM [facility] REPOSITORY TYPE CODE TESTS RESULT OUT OF RANGE REFERENCE UNITS LAB L501.0100 Normal 74-106 mg/dL GLU 101 Result Comment: Fasting Glucose result from 100 to 125 mg/dLsuggests IMPAIRED HOMEOSTASIS per A.D.A. criteria.Please note revised GLUCOSE reference range [id number]/02/2018. LAB L501.1000 Normal 7-18 mg/dL BUN 8 LAB L501.1100 Normal 0.55-1.02 mg/dL CREAT,SERUM 0.62 Result Comment: The validity of the calculated GFR AND GFRAA in patients over70 years has not been determined. Clinical correlation isessential. LAB L501.1110 Normal >60 mL/min EST GFR 131 Result Comment: Non- GFR Calc LAB L501.1115 Normal >60 mL/min EST GFR - 159 AA Result Comment: GFR Calc LAB L501.1255 Normal ml/min Estimated 119.73 CRCL LAB L501.1300 Normal 10-20 RATIO BUN/CRE 13.0 LAB L501.2200 Normal 8.5-10 mg/dL CA 9.1 .1 LAB L501.5300 Normal 136-14 mmol/L NA 139 5 LAB L501.5600 Normal 3.5-5. mmol/L K 3.8 1 LAB L501.5900 Normal 98-107 mmol/L CL 104 LAB L501.6100 Normal 21.0-3 mmol/L CO2 28.0 2.0 LAB L501.6200 Normal 5-15 GAP 7 Performed By: #### L500.2500 ####[facility] [address] [place], [address] D-DIMER QUANTITATIVE Collected: 11/20/2017 Status: F Source: [place] (DVT/PE) 5:10 PM [facility] REPOSITORY TYPE CODE TESTS RESULT OUT OF RANGE REFERENCE UNITS LAB L300.8000 Normal 0.27-0.49 FEU/ug/m 0.49 D-DIMER QUANT Result Comment: NORMAL D-Dimer level (<0.50) indicates no DVT or PE. Performed By: #### L300.8000 ####[facility] [address] [place], [address] ,SERUM,HCG QUALI. Collected: Status: F Source: [place] 11/20/2017 5:10 PM [facility] REPOSITORY TYPE CODE TESTS RESULT OUT OF REFERENCE UNITS RANGE LAB L700.7000 Normal 0-9 Nonpreg Negative HCGSQUAL NEGATIVE LAB L700.6700 Normal =>Qualitati mIU/mL HCG Qual < 1 ve triggr Performed By: #### L700.6800 ####[facility] [address] [place], [address] EMERGENCY DEPARTMENT Observed: 11/05/2017 Status: F Source: [place] SUMMARY 12:39 PM [facility] REPOSITORY [facility] [id number] [facility] [place], [place] [address]Srpjzzqxx Department Plkerci81/21/18 0905MR#: [id number] Acct: [id number]: CEDRIC HARMAN Rep #: [id number]: 1995 22 From: Kin Lucas MDPCP: Tommy Castro MD Status: DEP ER- ER Visit SummaryDate of Service: 11/05/17Chief Complaint: Upper abdominal painHistory of Present Illness: The patient is a 22 F Zentz to the emergency department with upperabdominal pain. The patient states that she ate [employer] at about 11 PM last night. Shestates that she woke rather suddenly at about 2 AM. She had a sharp stabbing pain in themidepigastric area. She had mild nausea. She denies any vomiting. States the pain really hasnot subsided. She tried belching. She has not taken anything for the pain. She states thatshe is not really had pain like this before. She states that she was looking on the Internetand was concerned she may have pancreatitis. Only past surgical history is significant forprior . There is no family history of Crohn's disease or ulcerative colitis. Shedenies any change in bowel movements.Physical Examination: Vital signs reviewedGeneral: Well-nourished, well-developedHead: Normocephalic, atraumaticEyes: Pupils equal and reactive, extraocular muscles intactNeck, supple, no lymphadenopathyHeart: Regular rate and rhythmRespiratory: No distress, clear bilaterallyAbdomen: Soft, minimally tender in the midepigastric area without rebound or guarding, negativeMurphy sign, nondistended, no peritoneal signsBack: NontenderExtremities: Nontender, no edema, no cordsSkin: Normal color no rashNeuro: Alert and oriented, no focal or lateralizing deficitsTest Results: []Emergency Department Course and Treatment: The patient had very minimal tenderness in themidepigastric area. IV was established. She is given fluids, Zofran, GI cocktail. She didhave some improvement of her symptoms. Screening labs including liver and lipase areunremarkable. On reevaluation she is resting comfortably. I do feel this is more likelyinflammation of the stomach lining. The patient was placed on Pepcid and Bentyl. She will begiven Zofran for nausea control. She was counseled on concerning symptoms, foods to avoid,dietary counseling, and reasons to return. She will be discharged home.Treatment Plan: []Disposition: DischargeImpression : 1. GastritisThis note was generated with Doktorburada.comation software. It may contain incorrect words,spelling, and punctuation that were not noted in review of the chart prior to signingED Disposition- Plan for ED Patient:Chief Complaint: Abd PainInstructions: ED PUD Vs GastritisPrescriptions:Ondansetron [Zofran Odt] 4 mg PO Q8H PRN PRN #10 tabPRN Reason: NauseaDicyclomine HCl [Bentyl] 20 mg PO TIDAC # 20 capFamotidine [Pepcid] 20 mg PO BID #28 tabReferrals:Tommy Castro MD [ Primary Care Provider] -What to do if you have ProblemsFor any increased pain, shortness of breath, bleeding, nausea or vomiting, chest pain, or anyunexpected problems, contact your Primary Care Provider. Call [facility] ([phone])or report to the closest Emergency Room.Call 911 if necessary.11/05/17 1239 < Electronically signed by Kin Lucas MD>Date Kin Lucas MDCosigner Signature (If Indicated): Date CC: Tommy Castro MD CBC W/DIFF, AUTOMATED Collected: 11/05/2017 Status: F Source: [place] 9:26 AM [facility] REPOSITORY TYPE CODE TESTS RESULT OUT OF RANGE REFERENCE UNITS LAB L100.1000 Normal 4.4-11.0 K/mm3 WBC 6.6 LAB L100.1200 Normal 4.2-5.4 M/mm3 RBC 4.52 LAB L100.1300 Normal 12.0-15.0 g/dl HGB 12.1 LAB L100.1400 Normal 37-47 % HCT 37.8 LAB L100.1500 Normal 81-99 fL MCV 83.6 LAB L100.1600 Low 27.0-32.0 pg MCH 26.8 LAB L100.1700 Normal 32-36 g/gl MCHC 32.0 LAB L100.1810 High 11.6-14.6 % RDW 14.9 CV LAB L100.1820 High 35.1-43.9 fl RDW 45.1 SD LAB L100.1900 Normal 150-450 K/mm3 PLT 255 LAB L100.2000 Normal 6.2-12.0 fl MPV 10.7 LAB L100.2100 Normal 47-70 % NEUT% 63.1 LAB L100.2200 Normal 19-41 % LY% 27.0 LAB L100.2300 Normal 0-10 % MONO% 7.0 LAB L100.2400 Normal 0-5 % EO% 2.4 LAB L100.2500 Normal 0-1 % BASO% 0.5 LAB L100.2550 Normal 0.0-0.9 % IM 0.000 GRAN % Result Comment: IG% - Immature Granulocytes (promyelocytes, myelocytes andmetamyelocytes) > 1% indicates that a LEFT SHIFT is Present. LAB L100.2620 Normal 2.0-7.7 X10 3/uL Absolute Neut 4.1 LAB L100.2720 Normal 0.83-4.51 X10 3/ul Absolute Lymph 1.77 Performed By: #### L100.0100 ####[facility] [address] [place], [address] COMPREHENSIVE METABOLIC Collected: 11/05/2017 Status: F Source: [facility] 9:26 AM [facility] REPOSITORY TYPE CODE TESTS RESULT OUT OF RANGE REFERENCE UNITS LAB L501.0100 Normal 74-106 mg/dL GLU 86 Result Comment: Please note revised GLUCOSE reference range yhxpcjtse76/02/2018. LAB L501.1000 Normal 7-18 mg/dL BUN 10 LAB L501.1100 Normal 0.55-1.02 mg/dL CREAT,SERUM 0.55 Result Comment: The validity of the calculated GFR AND GFRAA in patients over70 years has not been determined. Clinical correlation isessential. LAB L501.1110 Normal >60 mL/min EST GFR 148 Result Comment: Non- GFR Calc LAB L501.1115 Normal >60 mL/min EST GFR - 180 AA Result Comment: GFR Calc LAB L501.1255 Normal ml/min Estimated 140.89 CRCL LAB L501.1300 Normal 10-20 RATIO BUN/CRE 18.1 LAB L501.1500 Normal 6.4-8. g/dL T PROT 7.6 2 LAB L501.1800 Low 3.2-5. g/dL ALB 3.1 0 LAB L501.1950 High 2.2-4. g/dL GLOB 4.5 2 LAB L501.2000 Low 0.9-2. RATIO A/G 0.7 4 LAB L501.2200 Low 8.5-10 mg/dL CA 8.4 .1 LAB L501.4100 Low 15-37 U/L AST 13 LAB L501.4305 Normal 45-117 U/L ALK P 98 LAB L501.4405 Normal 13-56 U/L ALT 16 LAB L501.4600 Normal 0.20-1 mg/dL T BILI 0.20 .00 LAB L501.5300 Normal 136-14 mmol/L NA 141 5 LAB L501.5600 Normal 3.5-5. mmol/L K 4.2 1 LAB L501.5900 Normal 98-107 mmol/L CL 105 LAB L501.6100 Normal 21.0-3 mmol/L CO2 28.0 2.0 LAB L501.6200 Normal 5-15 GAP 8 Performed By: #### L500.4050, L501.2450 ####[facility] [address] [place], [address] LIPASE Collected: 11/05/2017 Status: F Source: [place] 9:26 AM [facility] REPOSITORY TYPE CODE TESTS RESULT OUT OF RANGE REFERENCE UNITS LAB L501.2450 Normal 73-393 U/L LIPASE 106 Performed By: #### L500.4050, L501.2450 ####[facility] [address] [place], [address] EMERGENCY DEPARTMENT Observed: 10/28/2017 Status: F Source: [place] SUMMARY 1:49 AM [facility] REPOSITORY [facility] [id number] [facility] [place], [place] [address]Uusohuqkt Department Njpqarm83/13/18 0145MR#: [id number] Acct: [id number]: CEDRIC HARMAN Rep #: [id number]: 1995 22 From: Johny DuganCP: Tommy Castro MD Status: REG ER- ER Visit SummaryDate of Service: 10/28/17Chief Complaint: HematuriaHistory of Present Illness: The patient is a 22 F blood upon wiping after urination. Minimalabdominal cramping. No flank pain. No fever. No nausea or vomiting. No tobacco history. Nohistory of kidney stones. History of UTI in the past. No other complaints.Physical Examination: General : Alert and oriented 3, no acute distressHEENT: Normocephalic, atraumatic. Moist mucosa membranesNeck: supple, nontender.Cardiovascular: Regular rate and rhythm, no murmursRespiratory: Normal breath sounds, symmetric, no distressAbdomen: Soft, nontender, nondistended, no guarding or reboundBack: No CVA tenderness.Extremities: Nontender, no edema, pulses intact 4Neuro: no focal neurological deficits.Test Results: HCG negative. UA with 25 leuks, blood of 25.Emergency Department Course and Treatment: Patient nontoxic, vital signs stable. No clinicalpresentation for concerns or kidney stones. HCG negative. UA noted leukocytes with hematuria.She be placed on 5 days of Keflex. She will be given follow-up with urology for hematuria ifsymptoms persist.Treatment Plan: []Disposition: DischargeImpression: 1. UTI 2. HematuriaThis note was generated with wiseri dictation software. It may contain incorrect words,spelling, and punctuation that were not noted in review of the chart prior to signingED Disposition- Plan for ED Patient:Disposition: Home or Assisted LivingChief Complaint: ComplaintDiagnosis:UTI (urinary tract infection), HematuriaInstructions: ED UTI Cystitis Female, ED HematuriaPrescriptions: Cephalexin [Keflex] 500 mg PO BID #10 capsuleReferrals:Tommy Castro MD [Primary Care Provider] -Jeff Stanley MD [STAFF PHYSICIAN] - 5-7 DaysWhat to do if you have ProblemsFor any increased pain, shortness of breath, bleeding, nausea or vomiting, chest pain, or anyunexpected problems, contact your Primary Care Provider. Call [facility] ([phone])or report to the closest Emergency Room.Call 911 if necessary.10/28/17 0149 <Electronically signed by Johny Castro>Date Johny Wolfe DOCosigner Signature (If Indicated): Date CC: Tommy Castro MD ,URINE Collected: 10/28/2017 Status: F Source: [place] 12:45 AM [facility] REPOSITORY Order Comment: Order Date: 10/28/17 TYPE CODE TESTS RESULT OUT OF REFERENCE UNITS RANGE LAB L400.8000 Normal Negative HCGUQUAL Negative Result Comment: Very dilute urine specimens, as indicated by a low specificgravity, may not contain community health representative levels of hCG.If is still suspected, a first morning urinespecimen should be collected 48 hours later and tested. Performed By: #### L400.7600 ####[facility] [address] [place], [address] URINALYSIS, COMPLETE Collected: 10/28/2017 Status: F Source: [place] 12:45 AM [facility] REPOSITORY Order Comment: Order Date: 10/28/17How was Urine Obtained? WEBSITE PROGRAMMER TO SPECIFY TYPE CODE TESTS RESULT OUT OF RANGE REFERENCE UNITS LAB L400.3000 Normal Yellow COLOR Yellow LAB L400.3050 Normal Clear CLARITY Clear LAB L400.3200 Normal Normal mg/dl GLUCOSE, UR Normal LAB L400.3300 Normal Negative mg/dL BILIRUBIN Negative URINE LAB L400.3400 Normal Negative mg/dl KETONE UR Negative LAB L400.3465 Normal 1.002-1.030 SP.GR. 1.025 DIPSTX LAB L400.3550 Normal 5.0 - 8.0 pH UR 6.0 LAB L400.3600 High Negative mg/dl PROT DIPSTX 30 LAB L400.3700 Normal Normal mg/dl UROBILI Normal LAB L400.3750 Normal Negative NITRITE UR Negative LAB L400.3780 High Negative /ul OCCULT 25 BLOOD-UR LAB L400.3800 High Negative /ul LEUK 25 ESTERASE LAB L400.4050 Normal 0-5 /hpf WBC 0-5 SEEN LAB L400.4100 Normal 0-5 /hpf RBC-UA 0 SEEN LAB L400.4150 Normal 5-10 /hpf SQUAM EPI 10-25 SEEN LAB L400.4300 Normal None Seen /hpf BACTERIA 0 SEEN LAB L400.4350 Normal <or=2+ /hpf MUCUS, 0 SEEN URINE Performed By: #### L400.0001 ####[facility] [address] [place], [address] PROGRESS Observed: 10/23/2017 Status: COMPLETED Source: [place] 2:33 PM [facility] REPOSITORY HNO ID: [id number]: Юлия (Sheetmetal Patternmaker) OlderService: (none) Author Type: Nurse PractitionerType: Progress NotesFiled: 10/23/2017 2:55 PMNote Text: CC: Patient presents with:Nasal Congestion: with cough and B/L ears feel cloggedHPI:Cedric Harman is a 22 year old female who presents to the office withcomplaint of respiratory symptoms for a week.Symptoms are worseningAssociated symptoms includes nasal congestion, rhinorrhea, facialpain/pressure, headache, ear pressure , cough, purulent nasal drainage,fatigue, wheezing, dyspnea, vomiting and chest congestion.Treatments tried include OTC cold medicine with no relief of symptoms.Sick contacts: unknown.History of asthma, frequent episodes of bronchitis, chronic bronchitis,bronchiectasis or COPD: NoSmoker: NoSeasonal/environmental allergies: Yes seasonalThe ROS is otherwise negative.The patient's pmh, medications, allergies, and past visits are reviewed.PHYSICAL EXAM:BP 92/56 Pulse 88 Temp 37 ?C (98.6 ?F) (Tympanic) Resp 20 Wt 96.6kg (213 lb) BMI 37.73 kg/k4Qdgfqed appearance: tired/ill appearing, in no acute distressHead: NormocephalicEyes: conjunctiva pink and moist, no icterus, sclera white, non-injectedEars: Right ear: External ear/canal- Normal, TM - erythematous. Left ear:External ear/canal- Normal, TM - clear with good landmarksNose: purulent rhinorrhea, mucosa erythematous and swollen, sinustenderness over maxillary sinuses bilateral.Oropharynx:no erythema, tonsillar hypertrophy: 1+Neck:supple and positive findings: few small anterior cervical nodesHeart: Negative. RRR without obvious murmur, gallop, or rubs. No ectopy.Lungs: clear to auscultation, without rales or wheeze, good air exchangeASSESSMENT/PLAN:1. Acute otitis media, right - ICD9: 382.9, ICD10: H66.91 (primarydiagnosis)- Will begin treatment with Augmentin 875 mg PO BID for 7 days- Follow up in 3-5 days if symptoms persist or worsen.2. Acute non-recurrent sinusitis, unspecified location - ICD9: 461.9,ICD10: J01.90- Will begin treatment with as above- The patient should also be given OTC cough and cold meds as needed forthe first 5-7 days of treatment.- Supportive care with plenty of fluids, rest, and analgesia prn.- Follow up in 3-5 days if symptoms persist or worsen.3. Cough - ICD9: 786.2, ICD10: R05- CODEINE 10 MG-GUAIFENESIN 100 MG/5 ML ORAL LIQUIDPrescription instructions reviewed with patient as applicable. Potentialred flag symptoms discussed with the patient. Reviewed appropriate actionplan to take if red flag symptoms occur. Patient agreeable to treatmentplan.Юлия Mcgowan APRN.CNP CNOV Observed: 10/23/2017 Status: COMPLETED Source: [place] 2:00 PM [facility] REPOSITORY Office Visit ([facility]) ---------CEDRIC HARMAN ([id number]) 1995 FDate Time Provider Department10/23/17 2:00 PM ЮЛИЯ MCGOWAN ([place]) [facility] During your visit today, we recorded the following information about you: Temperature Pulse Respiration Blood pressure 98.6 degrees 88/minute 20/minute 92/56 Weight 96.6 kgЮлия Mcgowan APRN.CNP 10/23/2017 2:55 PM SignedCC: Patient presents with:Nasal Congestion: with cough and B/L ears feel cloggedHPI:Cedric Harman is a 22 year old female who presents to the office withcomplaint of respiratory symptoms for a week.Symptoms are worseningAssociated symptoms includes nasal congestion, rhinorrhea, facialpain/pressure, headache, ear pressure , cough, purulent nasal drainage,fatigue, wheezing, dyspnea, vomiting and chest congestion.Treatments tried include OTC cold medicine with no relief of symptoms.Sick contacts: unknown.History of asthma, frequent episodes of bronchitis, chronic bronchitis,bronchiectasis or COPD: NoSmoker: NoSeasonal/environmental allergies : Yes seasonalThe ROS is otherwise negative.The patient's pmh, medications, allergies, and past visits are reviewed.PHYSICAL EXAM:BP 92/56 Pulse 88 Temp 37 ?C (98.6 ?F) (Tympanic) Resp 20 Wt 96.6 kg(213 lb) BMI 37.73 kg/s0Efycted appearance: tired/ill appearing, in no acute distressHead: NormocephalicEyes: conjunctiva pink and moist, no icterus, sclera white, non-injectedEars: Right ear: External ear/canal- Normal, TM - erythematous. Left ear:External ear/canal- Normal, TM - clear with good landmarksNose: purulent rhinorrhea, mucosa erythematous and swollen, sinus tendernessover maxillary sinuses bilateral.Oropharynx:no erythema, tonsillar hypertrophy: 1+Neck:supple and positive findings: few small anterior cervical nodesHeart: Negative. RRR without obvious murmur, gallop, or rubs. No ectopy.Lungs: clear to auscultation, without rales or wheeze, good air exchangeASSESSMENT/ PLAN:1. Acute otitis media, right - ICD9: 382.9, ICD10: H66.91 (primary diagnosis)- Will begin treatment with Augmentin 875 mg PO BID for 7 days- Follow up in 3-5 days if symptoms persist or worsen.2. Acute non-recurrent sinusitis, unspecified location - ICD9: 461.9, ICD10:J01.90- Will begin treatment with as above- The patient should also be given OTC cough and cold meds as needed for thefirst 5-7 days of treatment.- Supportive care with plenty of fluids, rest, and analgesia prn.- Follow up in 3-5 days if symptoms persist or worsen.3. Cough - ICD9: 786.2, ICD10: R05- CODEINE 10 MG-GUAIFENESIN 100 MG/5 ML ORAL LIQUIDPrescription instructions reviewed with patient as applicable. Potential redflag symptoms discussed with the patient. Reviewed appropriate action plan totake if red flag symptoms occur. Patient agreeable to treatment plan.Glenis Dubois APRN.CNP 10/23/2017 2:39 PM Signed1.) Get more rest than you usually do - this will speed your recovery. If youpush hard with your usual busy schedule, you will be sicker longer.2.) Drink a lot of water - enough to make you urinate every 2- 3 hours (yoururine should be a light yellow color). This helps thin the phlegm and sooth theairways. Gatorade (G2) is less in sugar and replaces your electrolytes if noteating well.3.) Run a cool mist humidifier in your bedroom on high with the door closed.This is a natural way to decongest, and it helps lessen scratchy throats, nasalstuffiness and coughs.4.) For those without blood pressure concerns, take Sudafed as a decongestant(decreases stuffiness-lets drain), but realize that you will need to take itevery 4-6 hours for several days. The lower dose is generally better tolerated(30mg)... Some people can make feel fast heart rate/jittery. You also may tryanti-allergy pill like Claritin(loratidine ) 10mg or maria del rosario, benadryl (makessleepy) over the counter as directed to help with drippy nose. [id number] twice daily(plain) may help thin secretions so they are easier tocough up. Those with high blood pressure and not with prostate problems cantry svpn-dvy-mydculu Coricidin HBP for congestion.5.) For nasal/sinus congestion nasal spray such as Flonase or Nasacort, salinenasal spray and/or Netti Pot may be beneficial5.) Take ibuprofen or acetominophen every 4-6 hours for pain/aches as needed ifnot contraindicated for you.Antibiotic as directed per prescriptionIf you should breakout in a rash, stop the medicine and call the office.Any antibiotic has the potential to cause diarrhea due to alteration in thenormal bacterial hesham of the gut. This can be reduced by eating yogurt withactive cultures or taking probiotics daily while on the medication. If diarrheabecomes severe (watery, large volumes or more than 3-4/day) call the office.Women may experience yeast vaginitis due to alteration in the vaginal hesham.Symptoms include vaginal itching, irritation, and often a clumpy whitedischarge. If this occurs, there are several effective over the counterremedies available, including one- dose treatments. If these are unsuccessful,call the office. Antibiotics may interfer with control. If you are onoral contraceptives, use another form of protection (condoms, foams, jellies, diaphragm) throught the end of whatever pill pack you are on in 10 days.If you are not improving in 3-5 days or are worsening follow up with the officeat [phone] Provider: SELF [200]Allergies As of Date: 10/23/2017(No Known Allergies)Date Reviewed: 10/23/2017Reviewed by: Milly Abreu LPN - Fully AssessedReason for Visit: Nasal Congestion [235] Cmt: with cough and B/L ears feel cloggedPrimary Visit Diagnosis:Acute otitis media, right [H66.91] Other Visit Diagnoses:Acute non-recurrent sinusitis, unspecified location [J01.90] Cough [R05]Order(s):amoxicillin- clavulanic acid (AUGMENTIN) 875-125 mg per tabletTake 1 tablet by mouth twice daily for 7 days.Disp: 14 tabletRfl: 0 codeine-guaiFENesin (ROBITUSSIN AC) 10-100 mg/5 mL syrupTake 5-10 mL by mouth four times daily as needed for Cough for up to 3 days. May cause drowsiness.Disp: 120 mLRfl: 0Prescriptions as of 10/23/2017 Sig: FLUOXETINE 40 MG CAPSULE NORGESTIMATE 0.25 MG-ETHINYL * Take 1 tablet by mouth once d* HYDROXYZINE PAMOATE 25 MG CAP* Take 1 capsule by mouth twice* IRON ORAL Take by mouth. AMOXICILLIN 875 MG -POTASSIUM * Take 1 tablet by mouth twice * CODEINE 10 MG-GUAIFENESIN 100* Take 5-10 mL by mouth four ti*Problem List As Of Date 10/23/2017 Noted Resolved control counseling [Z30.09] INVALID FOR*09/28/2016 Sore throat [J02.9] INVALID FOR*09/28/2016 More... Odynophagia [R13.10] INVALID FOR* More... Spotting in [O26.859] INVALID FOR*09/28/2016 More... History of depression [Z86.59] INVALID FOR*04/27/2017 More... Family history of defects [Z82.79 ] INVALID FOR*04/27/2017 More... Obesity in [O99.210] INVALID FOR*04/27/2017 More... Supervision of high risk due to socia*INVALID FOR*2016 More... Chlamydia infection affecting [O98.81*INVALID FOR*04/27/2017 More... Other instructions from your clinician: 1.) Get more rest than you usually do - this will speed your recovery. If you push hard with your usual busy schedule, you will be sicker longer. 2.) Drink a lot of water - enough to make you urinate every 2-3 hours (your urine should be a light yellow color). This helps thin the phlegm and sooth the airways. Gatorade (G2) is less in sugar and replaces your electrolytes if not eating well. 3.) Run a cool mist humidifier in your bedroom on high with the door closed. This is a natural way to decongest, and it helps lessen scratchy throats, nasal stuffiness and coughs. 4.) For those without blood pressure concerns, take Sudafed as a decongestant ( decreases stuffiness-lets drain), but realize that you will need to take it every 4-6 hours for several days. The lower dose is generally better tolerated (30mg)... Some people can make feel fast heart rate/jittery. You also may try anti-allergy pill like Claritin(loratidine) 10mg or maria del rosario, benadryl (makes sleepy) over the counter as directed to help with drippy nose. Mucinex 600-1200mg twice daily(plain) may help thin secretions so they are easier to cough up. Those with high blood pressure and not with prostate problems can try sckj-etl-zmqvfqc Coricidin HBP for congestion. 5.) For nasal/sinus congestion nasal spray such as Flonase or Nasacort, saline nasal spray and/or Netti Pot may be beneficial 5.) Take ibuprofen or acetominophen every 4-6 hours for pain/aches as needed if not contraindicated for you. Antibiotic as directed per prescription If you should breakout in a rash, stop the medicine and call the office. Any antibiotic has the potential to cause diarrhea due to alteration in the normal bacterial hesham of the gut. This can be reduced by eating yogurt with active cultures or taking probiotics daily while on the medication. If diarrhea becomes severe (watery, large volumes or more than 3-4/day) call the office. Women may experience yeast vaginitis due to alteration in the vaginal hesham. Symptoms include vaginal itching, irritation, and often a clumpy white discharge. If this occurs, there are several effective over the counter remedies available, including one-dose treatments. If these are unsuccessful, call the office. Antibiotics may interfer with control. If you are on oral contraceptives, use another form of protection ( condoms, foams, jellies, diaphragm) throught the end of whatever pill pack you are on in 10 days. If you are not improving in 3-5 days or are worsening follow up with the office at [phone] ordered this encounter Disp Refills Start End AMOXICILLIN 875 MG-POTASSIUM CLAVULA* 14 t* 0 10/23/2017 10/30/2017 Class: Print RX Route: ORAL Sig: Take 1 tablet by mouth twice daily for 7 days. CODEINE 10 MG-GUAIFENESIN 100 MG/5 M* 120 * 0 10/23/20172017 Class: Print RX Route: ORAL Sig: Take 5-10 mL by mouth four times daily as needed for Cough for up to 3 days. May cause drowsiness. Status:Closed by ЮЛИЯ MCGOWAN CNP on 10/23/17 URGENT CARE VISIT Observed: 10/19/2017 Status: F Source: [place] REPORT 4:36 PM [facility] REPOSITORY Now [address] [phone] VISITDate of Service: 10/19/17#: [id number] Acct: [id number]: CEDRIC HARMAN Rep #: [id number]: 1995 Provider: Reggie Clark/Sex: 22/F Location: [facility] [place].NOWStatus: SignedIntakeVital Signs10/19/17 Height 5 ft 2 inIntakeVisit Reasons: UTI, AND HEAD CONGESTIONChief Complaint: Cough, recheck UTIIs patient in pain?: NoAllergiesNo Known Allergies Allergy (Verified 10/19/17 16:23)MedicationsFerrous Sulfate 325 mg PO BIDCM #60 tab 04/15/17 [Rx Confirmed 10/09/17]Fluoxetine [Prozac] 10 mg PO DAILY #30 cap 04/15/17 [Rx Confirmed 10/09/17]benzonatate 200 mg capsule 200 mg PO TID PRN # 20 cap 10/19/17 [Rx Confirmed 10/19/17]PFSHSocial HistorySmoking Status: Never smokeralcohol intake: currentHPIHPIChief Complaint: Cough, recheck UTIDetails: CEDRIC HARMAN, is a 22 F who presents to the office today for initial evaluation newonset cough and congestion 2 days. Patient also noted while here she would like to haveurinalysis reassessed as she was previously treated for urinary tract infection and althoughshe is asymptomatic now she would like to ensure that she no longer has any signs of UTI. Shenotes no complaints fever, chills, sweats, rash, chest pain/shortness of breath. She isnon-smoker. She notes no other associated symptoms and no other alleviating or aggravatingfactorsROSConstConstitutional: No excessive sweating, abnormal sleep pattern, chills, fever(s), night sweatsor body acheEyesEyes: No change in visionENTENT: Positive for nasal congestion;no abnormal hearing, ear pain, ear discharge, ear pressure, hearing loss, post nasal drip, sinus pressure or sore throatRespRespiratory: Positive for cough Cough: Yes non-productive;no chest congestionCardioCardiology: No excessive sweating, chest pain at rest, chest pain with exertion, shortness ofbreath, dyspnea on exertion, irregular heart rhythm, generalized swelling or leg pain withexertionGastroGI: No abdominal pain, change in stool character or change in bowel habitsGUGenitourinary-Female : No difficulty urinating, urinary incontinence, burning urination, urinaryfrequency , painful urination or urinary urgencyMuscMusculoskeletal: No joint pain, back pain or limited range of motionSkinSkin: No rashNeuroNeurology: No abnormal hearing, abnormal speech or abnormal movementsPsychPsychiatric: No abnormal sleep patternEndoEndocrine: No excessive sweating, change in body appearance, cold intolerance or heatintoleranceAller/ImmAllergy/Immunologic: No food intoleranceHema/LympHematologic/Lymphatic: No easy bruisingExamConstGeneral: cooperative, healthy appearing, no acute distress, comfortableNutritional Appearance: average body habitus, obeseOrientation: alert, awake, oriented f9ANNAGCbuf: normal to inspectionEars: hearing grossly normal bilaterally, external ears normal, TM's normal bilaterally, EAC'snormalNose: external nose normal, nares normal, septum normal , nasal discharge clearFace and sinus: normal facial exam, sinuses nontender, face symmetricMouth: tongue normal, lip normal, oropharynx normal, oral mucosae normalTeeth and gingiva: dentition normal, gingiva normalThroat: uvula midline, tonsils normal, posterior oropharynx normalEyesGeneral: appearance normal, both eyes and all related structuresNeckNeck: normal visual inspection, full ROM, no lymphadenopathy, no meningeal signs, suppleNeck mass: NoThyroid: thyroid normalLymphatic: no lymphadenopathy notedChestChest palpation AND inspection: normal inspection of the chestRespEffort AND Inspection: normal respiratory effort, able to speak in complete sentences, symmetricchest movement, no cough (No unsolicited cough appreciated during today's exam)Auscultation: Bilateral: Clear to AuscultationCardioPalpation: normal PMIRate: regular rateRhythm: regular rhythmHeart Sounds: S1 normal, S2 normal, no gallops, no murmurs, no rubsPulses: radial pulses presentGIInspection: normal to inspectionPalpation: soft, nontender, no hepatosplenomegaly, no masses, not firm, no guardingGUGeneral: No CVA tenderness, other (See urinalysis and urine hCG results)SkinGeneral: no rashes or lesions notedNeuroGeneral: alert, awake, oriented x3, gait normalCognition: normal cognitionSpeech: speech normalGait: normal gaitMotor: muscle tone normal throughoutSensory Exam: no sensory deficits notedExtremGeneral: normal to inspectionPsychAppearance: grossly normalMental Status: mental status grossly normalMood: congruent moodAffect: normal affectSpeech and Movement: speech and movement normalAttitude: cooperativeThought Process: normalThought Content: normalJudgment: judgment goodResultsBMSUAOffice Urine Color Yellow Last Edit by Noemi Griffin on 10/19/17 16:26Office Urine Clarity Clear Last Edit by Noemi Griffin on 10/19/17 16:26BMSPREGUROffice , Urine Negative Last Edit by Noemi Griffin on 10/19/17 16:28BMSUAOffice Urine Color Yellow Last Edit by Noemi Griffin on 10/19/17 16:29Office Urine Clarity Clear Last Edit by Noemi Griffin on 10/19/17 16:29BMSPREGUROffice , Urine Negative Last Edit by Noemi Griffin on 10/19/17 16:29Assessment AND PlanProblems1. Bronchitis J402. URI (upper respiratory infection) J06.9PlanUrinalysis dip and urine hCG at patient's request for reassessment.Benzonatate as prescribed today.Clear fluids, rest, Tylenol/Claritin qsep-nob-gjesqns as needed for symptomatic relief.Follow-up with PCP in 5-7 days should symptoms not improved, sooner should symptoms worsen orany other concerns develop.Patient states acknowledging understanding all of the above.This note was generated with wiseri dictation software. It may contain incorrect words,spelling, and punctuation that were not noted in checking the note before signing.OrdersOrders:MedicationsNew: CodingLevel of Care CodeOff vis,est,level 3DiagnosesBronchitis J40URI (upper respiratory infection) J06.904/11/02 1636 <Electronically signed by Reggie KURTZ>Date Reggie Raya Jyothimery Signature: Date (if applicable)CC: EMERGENCY DEPARTMENT Observed: 10/09/2017 Status: F Source: [place] SUMMARY 1:10 AM [facility] REPOSITORY [facility] [id number] [address] [address]Iqhmsydow Department Ngaomjv58/25/18 0039MR#: [id number] Acct: [id number]: CEDRIC HARMAN Rep #: [id number]: 1995 22 From: Tae Campbell MDPCP: Tommy Castro MD Status: REG ER- ER Visit SummaryDate of Service: 10/09/17Chief Complaint: Back painHistory of Present Illness: The patient is a 22 F with urinary frequency that startedyesterday, which is common when she gets urinary tract infections, as his lack of dysuria,hematuria, abdominal pain. However today, she developed occasional throbbing in her low back,bilaterally. No nausea, vomiting, fevers. Last normal menstrual period was about 3 weeks ago,she is on control pills and is regular because of that, she has had no vaginal symptomsrecently.Physical Examination: Well-appearing in no acute distress. Normal vital signs. Afebrile.Abdomen soft nontender nondistended. No CVA tenderness bilaterally.Test Results: Urinalysis consistent with infection.Emergency Department Course and Treatment: Reassured that I do not think she has pyelonephritisor kidney stone here. We will treat her for simple cystitis that is likely radiating pain intoher back/kidney area, encouraged to return for any worsening symptoms. She is comfortable withthat plan.Treatment Plan: Bactrim 3 daysDisposition: Discharge homeImpression: Acute cystitis without hemorrhageThis note was generated with Doktorburada.comation software. It may contain incorrect words,spelling, and punctuation that were not noted in review of the chart prior to signingED Disposition- Plan for ED Patient:Disposition: Home or Assisted LivingChief Complaint: Flank PainInstructions: ED UTI Cystitis FemalePrescriptions:Sulfamethoxazole/Trimethoprim [Bactrim Ds Tablet] 1 ea PO BID #6 tabReferrals:Tommy Castro MD [Primary Care Provider] - 3-5 Days if not improvingWhat to do if you have ProblemsFor any increased pain, shortness of breath, bleeding, nausea or vomiting, chest pain, or anyunexpected problems, contact your Primary Care Provider. Call [facility] ([phone])or report to the closest Emergency Room.Call 911 if necessary.10/09/17 0110 < Electronically signed by Tae Campbell MD>Date Tae Campbell MDCosigner Signature (If Indicated): Date CC: Tommy Castro MD URINALYSIS, COMPLETE Collected: 10/09/2017 Status: F Source: [place]STEL 12:40 AM [facility] REPOSITORY Order Comment: How was Urine Obtained? CLEAN CATCH TYPE CODE TESTS RESULT OUT OF RANGE REFERENCE UNITS LAB L400.3000 Normal Yellow COLOR Yellow LAB L400.3050 Normal Clear CLARITY Sl. Cloudy LAB L400.3200 Normal Normal mg/dl GLUCOSE, UR Normal LAB L400.3300 Normal Negative mg/dL BILIRUBIN Negative URINE LAB L400.3400 Normal Negative mg/dl KETONE UR Negative LAB L400.3465 Normal 1.002-1.030 SP.GR. 1.020 DIPSTX LAB L400.3550 Normal 5.0 - 8.0 pH UR 6.0 LAB L400.3600 High Negative mg/dl PROT DIPSTX 30 LAB L400.3700 Normal Normal mg/dl UROBILI Normal LAB L400.3750 Normal Negative NITRITE UR Negative LAB L400.3780 Normal Negative /ul OCCULT Negative BLOOD-UR LAB L400.3800 High Negative /ul LEUK 500 ESTERASE LAB L400.4050 Normal 0-5 /hpf WBC 5-10 SEEN LAB L400.4100 Normal 0-5 /hpf RBC-UA 0 SEEN LAB L400.4150 Normal 5-10 /hpf SQUAM EPI 5-10 SEEN LAB L400.4300 Normal None Seen /hpf BACTERIA 1+ LAB L400.4350 Normal <or=2+ /hpf MUCUS, 0 SEEN URINE LAB L400.4850 Normal None Seen /hpf OTHER 1+ STARCH CRYSTALS Performed By: #### L400.0001 ####[facility] [address] [place], [place], [id number] CBC-COMPLETE BLOOD CNT Collected: 09/19/2017 Status: F Source: [place] NO DIFF 1:47 PM [facility] REPOSITORY Order Comment: Order Date: 09/19/17Order Info: [id number] - CBC TYPE CODE TESTS RESULT OUT OF RANGE REFERENCE UNITS LAB L100.1000 Normal 4.4-11.0 K/mm3 WBC 8.3 LAB L100.1200 Normal 4.2-5.4 M/mm3 RBC 4.69 LAB L100.1300 Normal 12.0-15.0 g/dl HGB 12.3 LAB L100.1400 Normal 37-47 % HCT 37.8 LAB L100.1500 Low 81-99 fL MCV 80.6 LAB L100.1600 Low 27.0-32.0 pg MCH 26.2 LAB L100.1700 Normal 32-36 g/gl MCHC 32.5 LAB L100.1810 High 11.6-14.6 % RDW 15.6 CV LAB L100.1820 High 35.1-43.9 fl RDW 45.5 SD LAB L100.1900 Normal 150-450 K/mm3 PLT 238 LAB L100.2000 Normal 6.2-12.0 fl MPV 11.6 Performed By: #### L100.0500, L503.6001, L503.6150, L503.6550 ####[facility] [address] [place], [address] IRON BINDING Collected: 09/19/2017 Status: F Source: [place]STEL CAPACITY,TOTAL 1:47 PM [facility] REPOSITORY Order Comment: Order Date: 09/19/17Order Info: 2500-7 - TIBCOrder Info: 2498-4 - FEOrder Info: 2276-4 - WOLF TYPE CODE TESTS RESULT OUT OF RANGE REFERENCE UNITS LAB L503.6075 Normal 250-450 ug/dL TIBC 444 Performed By: #### L100.0500, L503.6075, L503.6150, L503.6550 ####[facility] [address] [place], [address] IRON Collected: 09/19/2017 Status: F Source: [place] 1:47 PM [facility] REPOSITORY Order Comment: Order Date: 09/19/17Order Info: 2500-7 - TIBCOrder Info: 2498-4 - FEOrder Info: 2276-4 - WOLF TYPE CODE TESTS RESULT OUT OF RANGE REFERENCE UNITS LAB L503.6150 Normal 50-170 ug/dL IRON 94 Performed By: #### L100.0500, L503.6075, L503.6150, L503.6550 ####[facility] [address], [address] FERRITIN Collected: 09/19/2017 Status: F Source: [place] 1:47 PM [facility] REPOSITORY Order Comment: Order Date: 09/19/17Order Info: 2500-7 - TIBCOrder Info: [id number] - FEOrder Info: 2276-4 - WOLF TYPE CODE TESTS RESULT OUT OF REFERENCE UNITS RANGE LAB L503.6550 Low 8-252 ng/mL FERRITIN 7 Performed By: #### L100.0500, L503.6075, L503.6150, L503.6550 ####[facility] [address] [place], [place], [address] EMERGENCY DEPARTMENT Observed: 09/17/2017 Status: F Source: [place] SUMMARY 6:45 AM [facility] [address]twrtuhv[address] MICHA[address] [address]Pgknwvqml Department Awvfokx84/02/18 2350MR#: [id number] Acct: [id number]: CEDRIC HARMAN Rep #: [id number]: 1995 22 From: Wil Farr MDPCP: Tommy Castro MD Status: DEP ER- ER Visit SummaryDate of Service: 09/16/17Chief Complaint: [] Left-sided rib and hip painHistory of Present Illness: The patient is a 22 F patient tripped and slid down the steps 2days ago and having pain in her left lateral ribs and hip. She has been using intermittentibuprofen with moderate relief of symptoms. Comes in for further evaluation. 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 Deniesany other complaintsPhysical Examination: [] Vital signs reviewedGeneral: Well-nourished well-developedHead: Normocephalic atraumaticEyes: Pupils equal round and reactive to light extraocular movements intactENT: TMs clear no hemotympanum no traumaNeck: Nontender full range of motionCardiovascular: Regular rate rhythm no murmurs normal S1-C1Icxmrkjexes: No distress clear to auscultation bilaterally chest nontenderAbdomen: Soft nontender nondistended normal bowel sounds no massesBack : Mild tenderness left lateral iliac crest and left lateral ribs without swellingdeformity. But no bony step-off or crepitus.Extremities: Nontender active range of motion 4 extremities no traumaSkin: Normal color no traumaNeuro alert oriented cranial nerves II through XII intact normal strength sensation reflexesTest Results: [] Emergency Department Course and Treatment: [] I believe the patient just has contusions.Discussed x-rays but I do not feel they are necessary. Given a shot of Toradol. She willcontinue symptomatic management was given lifting restrictionsTreatment Plan: []Disposition: []Impression: [] Left-sided rib pain after fallLeft-sided hip pain after fallThis note was generated with wiseri dictation software. It may contain incorrect words,spelling, and punctuation that were not noted in review of the chart prior to signingED Disposition- Plan for ED Patient:Chief Complaint: FallReferrals:Tommy Castro MD [Primary Care Provider] -What to do if you have ProblemsFor any increased pain, shortness of breath, bleeding, nausea or vomiting, chest pain, or anyunexpected problems, contact your Primary Care Provider. Call [facility] ([phone])or report to the closest Emergency Room.Call 911 if necessary.09/17/1745 <Electronically signed by Wil Farr MD>Date Wil Farr MDCosigner Signature (If Indicated): Date CC: Tommy Castro MD DISCHARGE INSTRUCTION Observed: 09/17/2017 Status: F Source: [place] 6:45 AM [facility] RE[facility] [address] [place], [place] [address]Bqvysdvfx Ciausqwkwau01/02/18 2351MR#: [id number] Acct: [id number]: CEDRIC HARMAN Rep #: [id number]: 1995 22 From: Wil Farr MDPCP: Tommy Castro MD Status: DEP ERED Disposition- Plan for ED Patient:Disposition: Home or Assisted LivingChief Complaint: FallInstructions: Contusions (Bruises)Referrals:Tommy Castro MD [Primary Care Provider] -What to do if you have ProblemsFor any increased pain, shortness of breath, bleeding, nausea or vomiting, chest pain, or anyunexpected problems, contact your Primary Care Provider. Call [facility] ([phone])or report to the closest Emergency Room.Call 911 if necessary.09/17/1745 <Electronically signed by Wil Farr MD>Date Wil Farr MDCosigner Signature (If Indicated): Date CC: Tommy Castro MD URGENT CARE VISIT Observed: 08/04/2017 Status: F Source: [place] REPORT 11:45 AM [facility] REPOSITORY Now [address] [phone] VISITDate of Service: 08/04/17MR#: [id number] Acct: [id number]: CEDRIC HARMAN Rep #: [id number]: 1995 Provider: Raf Clark/Sex: 22/F Location: [facility] [place].NOWStatus: SignedIntakeVital Signs08/04/17 Height 5 ft 4 in08/04/17 Weight: 212 lb08/04/17 Body Mass Index (BMI) 36.3IntakeVisit Reasons: SINUS INFECTIONInterpreter Required: NoIs patient in pain?: NoAllergiesNo Known Allergies Allergy (Verified 08/04/17 11:41)MedicationsFamotidine [Pepcid] 20 mg PO PRN PRN 03/04/17 [History Confirmed 04/11/17]Acetaminophen [Tylenol] 650 mg PO 4X/DAY PRN PRN 04/05/17 [History Confirmed 04/11/17]Docusate Sodium [Colace] 100 mg PO BID PRN PRN #60 cap 04/15/17 [Rx]Ferrous Sulfate 325 mg PO BIDCM #60 tab 04/15/17 [Rx] Fluoxetine [Prozac] 10 mg PO DAILY #30 cap 04/15/17 [Rx]Ibuprofen [Motrin] 600 mg PO Q6H PRN #60 tab 04/15/17 [Rx]amoxicillin 875 mg-potassium clavulanate 125 mg tablet 1 tab PO Q12H 10 Days #20 tab 08/04/17[Rx Confirmed 08/04/17]PFSHSocial HistorySmoking Status : Never smokeralcohol intake: currentHPISINUS INFECTION:Details: CEDRIC HARMAN , is a 22 F who presents to the office today for 7 day history of sinuspain and pressure. She states that has caused sinus headaches over the past several days whichare improved with Tylenol. She reports that the sinus pressure and pain cause pain to herupper jaw bilaterally and makes it feels if she is in a tunnel. She states that she has takenseveral kwhy-juw-ypibxse medications with no relief. She denies fever, chills, sweats. Nochest pain or shortness of breath. No nausea, vomiting, diarrhea. No other associatedsymptoms or alleviating/aggravating factors.ROSConstConstitutional: Positive for headache(s);no fever(s), chills, night sweats or abnormal sleep patternENTENT: Positive for headache(s), nasal congestion, sinus pressure, sinus pain and nasaldischarge;no ear painRespRespiratory: No cough or shortness of breathCardioCardiology: No shortness of breath, irregular heart rhythm or fast heart rateNeuroNeurology: Positive for headache(s);no confusionPsychPsychiatric: No abnormal sleep pattern, No confusionExamConstGeneral: cooperativeHENMTHead: normal to inspectionEars: hearing grossly normal bilaterallyNose: nasal discharge purulentFace and sinus: sinus tenderness frontal and maxillaryMouth: oral mucosae normalThroat: abnormal tonsil bilaterally, postnasal drainageRespEffort AND Inspection: normal respiratory effortAuscultation: Bilateral: Clear to AuscultationCardioRate: regular rateRhythm: regular rhythmNeuroGeneral: alert, CN's II-XI intact bilaterallyPsychAppearance: grossly normalMental Status: mental status grossly normalAssessment AND PlanProblems1. Acute non-recurrent maxillary sinusitis J01.00StatusAcutePlanEncouraged to get plenty of rest, drink lots of clear liquids, and use Tylenol or Ibuprofen( unless contraindicated) for fever and comfort. Patient also educated on other symptomaticmanagement techniques. To be seen in 7-10 days if no improvement; sooner if worsening ofsymptoms. Patient advised of potential red flags and when appropriate report to the ED.Patient verbalized understanding of all the above.MedicationsNew:CodingLevel of Care CodeOff vis,est,level 3DiagnosesAcute non-recurrent maxillary sinusitis J01.00Sinusitis location: maxillaryRecurrence: non-jlpepxaut27/18/18 1145 <Electronically signed by Raf Jarrett PA> Date Raf Jarrett PACosigner Signature: Date (if applicable)CC : IRON Collected: 08/01/2017 Status: F Source: [place] 10:00 AM [facility] REPOSITORY TYPE CODE TESTS RESULT OUT OF RANGE REFERENCE UNITS LAB L503.6150 Low 50-170 ug/dL IRON 45 Performed By: #### L503.6150 ####[facility] [address] [place], [address] CBC W/DIFF, AUTOMATED Collected: 08/01/2017 Status: F Source: [place] 10:00 AM [facility] REPOSITORY TYPE CODE TESTS RESULT OUT OF RANGE REFERENCE UNITS LAB L100.1000 Normal 4.4-11.0 K/mm3 WBC 7.2 LAB L100.1200 Normal 4.2-5.4 M/mm3 RBC 4.73 LAB L100.1300 Normal 12.0-15.0 g/dl HGB 12.2 LAB L100.1400 Normal 37-47 % HCT 37.8 LAB L100.1500 Low 81-99 fL MCV 79.9 LAB L100.1600 Low 27.0-32.0 pg MCH 25.8 LAB L100.1700 Normal 32-36 g/gl MCHC 32.3 LAB L100.1810 High 11.6-14.6 % RDW 15.6 CV LAB L100.1820 High 35.1-43.9 fl RDW 44.6 SD LAB L100.1900 Normal 150-450 K/mm3 PLT 237 LAB L100.2000 Normal 6.2-12.0 fl MPV 12.0 LAB L100.2100 High 47-70 % NEUT% 70.3 LAB L100.2200 Normal 19-41 % LY% 20.7 LAB L100.2300 Normal 0-10 % MONO% 5.7 LAB L100.2400 Normal 0-5 % EO% 2.9 LAB L100.2500 Normal 0-1 % BASO% 0.3 LAB L100.2550 Normal 0.0-0.9 % IM 0.100 GRAN % Result Comment: IG% - Immature Granulocytes (promyelocytes, myelocytes andmetamyelocytes) > 1% indicates that a LEFT SHIFT is Present. LAB L100.2620 Normal 2.0-7.7 X10 3/uL Absolute Neut 5.1 LAB L100.2720 Normal 0.83-4.51 X10 3/ul Absolute Lymph 1.49 Performed By: #### L100.0100 ####[facility] [address] [place], [address] URGENT CARE VISIT Observed: 07/13/2017 Status: F Source: [place] REPORT 11:29 AM [facility] REPOSITORY Now [address] [phone] VISITDate of Service: 07/13/17MR#: [id number] Acct: [id number]: CEDRIC HARMAN Rep #: [id number]: 1995 Provider: Reggie Clark/Sex: 21/F Location: [facility] [place].NOWStatus: SignedIntakeVital Signs07/13/17 Height 5 ft 4 in07/13/17 Weight: 217 lb 8 oz07/13/17 Body Mass Index (BMI) 37.312 Blood Pressure 115/ Blood Pressure Location Rt rumjkkc40/27/17 Blood Pressure Position SittingIntakeVisit Reasons: KIDNEY INFECTIONIs patient in pain?: Yes (R upper quadrant AND low back ) Pain scale (1-10): 4AllergiesNo Known Allergies Allergy (Verified 04/11/17 20:11)MedicationsPrenatal Vits [ Prenatabs FA ] 1 tab PO DAILY 09/22/16 [History Confirmed 04/11/17]Famotidine [Pepcid] 20 mg PO PRN PRN 03/04/17 [History Confirmed 04/11/17]Acetaminophen [Tylenol] 650 mg PO 4X/DAY PRN PRN 09/19/17 [History Confirmed 04/11/17]Docusate Sodium [Colace] 100 mg PO BID PRN PRN #60 cap 04/15/17 [Rx]Ferrous Sulfate 325 mg PO BIDCM #60 tab 04/15/17 [Rx]Fluoxetine [Prozac] 10 mg PO DAILY #30 cap 04/15/17 [Rx]Ibuprofen [Motrin] 600 mg PO Q6H PRN #60 tab 04/15/17 [Rx]Oxycodone HCl/Acetaminophen [Percocet 5-325] 1 - 2 tab PO Q4H PRN PRN #40 tab 04/15/17 [Rx]nitrofurantoin macrocrystal 100 mg capsule 100 mg PO Q12H 7 Days #14 cap 07/13/17 [Rx Mjzgcjtdj68/27/17]PFSHMedical HistoryUTI (urinary tract infection) (Acute)UTI (urinary tract infection) (Inactive)Social HistorySmoking Status: Never smokerHPIKIDNEY INFECTION:Chief Complaint: Dysuria, urinary frequency, low back pain.Details: CEDRIC HARMAN, is a 21 F who presents to the office today for initial evaluation 2-3day history of dysuria, urinary frequency, low back pain, low abdominal pain. No complaints offever, chills, sweats. Patient notes she is sexually active, stating she is unsure when thefirst day of her last menstrual period was. She notes no associated symptoms no otheralleviating or aggravating factors.ROSConstConstitutional: No chills, fever(s), night sweats, abnormal sleep pattern or excessive sweatingEyesEyes: No change in visionENTENT : No abnormal hearing, ear pain, ear discharge, ear pressure, hearing loss, post nasal dripor sinus pressureRespRespiratory: No cough or chest congestionCardioCardiology: No excessive sweating, chest pain at rest, chest pain with exertion, shortness ofbreath, dyspnea on exertion, irregular heart rhythm, generalized swelling or leg pain withexertionGastroGI: No abdominal pain, change in stool character or change in bowel habitsGUGenitourinary-Female: Positive for painful urination, urinary frequency and urinary urgency;no urinary incontinence, difficulty urinating or burning urinationMuscMusculoskeletal: No joint pain, back pain or limited range of motionSkinSkin: No change in hair or soresNeuroNeurology: No abnormal speech, abnormal movements or abnormal hearingPsychPsychiatric: No abnormal sleep patternEndoEndocrine: No change in body appearance, cold intolerance, heat intolerance or excessivesweatingAller/ImmAllergy/Immunologic: No food intoleranceHema/LympHematologic/Lymphatic: No easy bruisingExamConstGeneral: cooperative, healthy appearing, no acute distressNutritional Appearance: average body habitusOrientation: alert, awake, oriented [id number]: normal to inspectionEars: hearing grossly normal bilaterallyNose: external nose normalFace and sinus: normal facial exam, sinuses nontenderMouth: oral mucosae normalTeeth and gingiva: dentition normalThroat: posterior oropharynx normalEyesGeneral: appearance normal, both eyes and all related structuresNeckNeck: normal visual inspection, full ROM, no lymphadenopathy, no meningeal signs, suppleLymphatic: no lymphadenopathy notedChestChest palpation AND inspection: normal inspection of the chestRespEffort AND Inspection: normal respiratory effort, able to speak in complete sentences , no coughAuscultation: Bilateral: Clear to AuscultationCardioPalpation: normal PMIRate: regular rateRhythm: regular rhythmHeart Sounds: S1 normal, S2 normal, no gallops, no murmurs, no rubsPulses: radial pulses presentGIInspection: normal to inspectionPercussion: normal to percussionPalpation: soft, no hepatosplenomegaly (, w/ (-) Pierce's, McBurney's. No CVA tenderness. (+)Suprapubic tenderness) SkinGeneral: no rashes or lesions notedNeuroGeneral: alert, awake, oriented x3, gait normalCognition: normal cognitionSpeech: speech normalGait: normal gaitMotor: muscle tone normal throughoutSensory Exam: no sensory deficits notedExtremGeneral: normal to inspectionPsychAppearance: grossly normalMental Status: mental status grossly normalMood: congruent moodAffect: normal affectSpeech and Movement: speech and movement normalAttitude: cooperativeThought Process: normalThought Content: normalJudgment: judgment goodAssessment AND PlanProblems1. 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 Time Provider Sjaojyvlsv26/7/17 DANA PINA WOALYCIA During your visit today, we recorded the following information about you:Gabriela Ríos RN 06/23/2017 11: 39 [facility] Ferrous Sulfate for patient. Patient lastseen for evaluation of caesarian incision. [facility] that a script[facility] e[facility]scripted on 04/15/17 by RR. No record of this rx in our system. Pleaseadvise if you are wanting patient to have an rx for Iron supplement. Thank you.Gabriela Palomares MD 06/23/2017 11:58 AM SignedI don't think that is necessary anymore.Melissa Murguia LPN 06/28/2017 2:18 PM SignedLeft Denise Murguia LPN 06/28/2017 2:19 PM SignedLeft detailed message on patient's cell phoneAllergies As of Date: 06/23/2017(No Known Allergies)Date Reviewed: 06/01/2017Reviewed by: Lisa Yarbrough Ma - Fully AssessedReason for Visit: Refill Request [94]Prescriptions as of 06/23/2017 Sig: FLUOXETINE 40 MG CAPSULE NORGESTIMATE 0.25 MG-ETHINYL * Take 1 tablet by mouth once d * HYDROXYZINE PAMOATE 25 MG CAP* Take 1 capsule by mouth twice* IRON ORAL Take by mouth.Problem List As Of Date 06/23/2017 Noted Resolved control counseling [Z30.09] INVALID FOR*09/28/2016 Sore throat [J02.9] INVALID FOR*09/28/2016 More... Odynophagia [R13.10] INVALID FOR* More... Spotting in [O26.859] INVALID FOR*09/28/2016 More... History of depression [Z86.59] INVALID FOR*04/27/2017 More... Family history of defects [Z82.79] INVALID FOR*04/27/2017 More... Obesity in [O99.210] INVALID FOR*04/27/2017 More... Supervision of high risk due to socia*INVALID FOR*04/27/2017 More... Chlamydia infection affecting [O98.31* INVALID FOR*04/27/2017 More... Status:Closed by ANTONIO HARO RN on 06/27/17 Observed: 06/19/2017 Status: F Source: [place]STEL LATIF, R/O STREP A 12:38 PM [facility] REPOSITORY ROSS CultureNo Streptococcus group A isolated. * This cultures intended use is to screen for Beta Streptococcus A only. All other pathogens and potential pathogens will not be screened for or reported. If a complete workup of all potential pathogens is indicated an order for a routine throat culture is required. Performed By: #### M100.010 ####[facility] [id number] [place], [address] PROGRESS Observed: 06/01/2017 Status: COMPLETED Source: JONES 11:41 AM [facility] REPOSITORY HNO ID: [id number]: Dana WashingtonService: (none)Author Type: PhysicianType: Progress NotesFiled: 06/01/2017 12:32 PMNote Text:Pt here today to evaluate C/S incision which was performed 04/12/17. Ptreports that she noticed her incision was draining small amount of fluidand appeared to be red and swollen. Pt denies fever or chills. 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 Pt deniessignificant pain with incision site.Exam :Gen: white female in NADAbd: incision healing well- pinpoint area on left side of incision probedwith Q tip- opened up only slightly- to size of Q tip head- no trackingnoted. No active drainage. No erythema, no surrounding cellulitis.A/p: 21yo s/p Primary cs on 04/12/17 here for Wound check1) no signs of infection2) tiny area on left open but no tracking noted- steri strips applied.Proper hygiene reviewed- keep area clean and dry. Call if worseningsymptoms or wound opens more.Dana Palomares MD HOSP Observed: 06/01/2017 Status: COMPLETED Source: JONES 11:30 AM [facility] REPOSITORY Office Visit (WOOB) -------CEDRIC HARMAN ([id number]) 1995 [facility] Time Provider Bozkchjzcz06/15/17 11:30 AM DANA PINA WOALYCIA During your visit today, we recorded the following information about you: Blood pressure Weight 124/82 100.7 kgDana Palomares MD 06/01/2017 12:32 PM SignedPt here today to evaluate C/S incision which was performed 04/12/17. Pt reportsthat she noticed her incision was draining small amount of fluid and appearedto be red and swollen. Pt denies fever or chills. Pt reports works in [employer] and is worried about MRSA infection. Pt denies significant pain withincision site.Exam :Gen: white female in NADAbd: incision healing well- pinpoint area on left side of incision probed withQ tip- opened up only slightly- to size of Q tip head- no tracking noted. Noactive drainage. No erythema, no surrounding cellulitis.A/p: 21yo s/p Primary cs on 04/12/17 here for Wound check1) no signs of infection2) tiny area on left open but no tracking noted- steri strips applied. Properhygiene reviewed- keep area clean and dry. Call if worsening symptoms or woundopens more.Dana Palomares , MICHELLEeferring Provider: SELF [[id number]]Allergies As of Date: 06/01/2017(No Known Allergies)Date Reviewed: Reviewed by: Lisa Yarbrough Ma - Fully AssessedPrimary Visit Diagnosis:Disruption of wound, [O90.0]Prescriptions as of 06/01/2017 Sig: FLUOXETINE 40 MG CAPSULE NORGESTIMATE 0.25 MG-ETHINYL * Take 1 tablet by mouth once d* HYDROXYZINE PAMOATE 25 MG CAP* Take 1 capsule by mouth twice* IRON ORAL Take by mouth.Problem List As Of Date 06/01/2017 Noted Resolved control counseling [Z30.09] INVALID FOR*09/28/2016 Sore throat [J02.9] INVALID FOR*09/28/2016 More... Odynophagia [R13.10] INVALID FOR* More... Spotting in [O26.859] INVALID FOR*09/28/2016 More... History of depression [Z86.59] INVALID FOR*04/27/2017 More... Family history of defects [Z82.79] INVALID FOR*04/27/2017 More... Obesity in [O99.210] INVALID FOR*2016 More... Supervision of high risk due to socia*INVALID FOR*04/27/2017 More... Chlamydia infection affecting [O98.31*INVALID FOR*04/27/2017 More... Status:Closed by DANA WASHINGTON MD on 06/01/17 PROGRESS Observed: 05/27/2017 Status: COMPLETED Source: [facility] 2:27 PM [facility] RE[facility]IT[facility] HNO ID: [id number]: Alexandre Woody: (none) Author Type: PhysicianType: Progress NotesFiled: 05/27/2017 2:34 PMNote Text: VISITMerceddorcas Harman is a 21 year old year old here for postpartumvisit.Delivery Summary:c/sPostpartum Recovery:Feeding: Breast feedingBreastfeeding problems: Inadequate milk supplyMenses since delivery: Not resumedMenstrual pattern prior to : Regular periodsIntercourse since delivery: ResumedDepression: denies symptoms of depression. Wasn't doing well but PCPincreased prozac and doing well. See depression screening tab.Emotional support: Yes, familyBowel symptoms: Negative for abdominal discomfort, blood in stools orblack stools and change in bowel habitsBladder symptoms: No dysuria, gross hematuria, urinary frequency, urinaryurgency, or incontinenceOther issues: NoneLast Pap: never HPV: n/aPAST MEDICAL HISTORYDiagnosis Date- Chlamydia 2013 and 2016- DepressionPAST SURGICAL HISTORYProcedure Laterality Date- DELIVERY ONLY 04/12/2017- PAST SURGICAL HISTORY OF oral (gum) surgeryFAMILY HISTORYProblem Relation Age of Onset- Allergies Mother- brain tumor benign [ OTHER] Father- Depression, anxiety , panic attacks [OTHER] Father- Hypertension Maternal Grandmother- Lipids Maternal Grandmother- Depression [OTHER] Maternal Grandmother- Asthma Maternal Grandfather- COPD Maternal GrandfatherSOCIAL HISTORY Social History Marital status: Single Spouse name: Years of education: 12 Number of children: 0Occupational HistoryOccupation Employer [employer]STER[employer]ocial History Main Topics Smoking status: Never Smoker Smokeless status: Never Used Alcohol use: No Drug use: No Sexual activity: Yes Partners with: Male control/ protection: PillOther Topics ConcernMilitary Service NoSleep Concern YesStress Concern YesSpecial Diet NoExercise NoSeat Belt No Comment:now does since accidentSelf-Exams NoSocial History Narrative Lives with mom and step dad, 2 brothers and cousin No petsPHYSICAL EXAMINATION:BP 112/60 Ht 5' 3 (1.60m) Wt 220 lb (99.8kg) BMI 38.98 kg/(m2).GENERAL: pleasant, female in no apparent distressHEENT: Normocephalic, atraumatic, mucus membranes moist and no lesionsNECK: Supple, full range of motion, no adenopathy and thyroid normalDERMATOLOGY: Normal, without lesions, non-icteric and non-hirsuteBREAST: soft, non-tender, symmetric, no dominant mass, normalnipple-areolar complex, no lymphadenopathy and no nipple dischargeCHEST: Normal inspiratory effortABDOMEN: soft, non-tender and no masses. No incisional redness, swelling,or drainage.PELVIC: external genitalia normal, normal Bartholin's glands, urethra,[place]'s glands, no vulvar lesions, no cervical lesions, good vaginalsupport, physiologic discharge present, normal appearing perineal body andperianal regionBIMANUAL: uterus normal size, shape and consistency, no adnexal masses andnon-tenderNEURO: alert and oriented x3,exam grossly non- focalEXTREMITIES: normalASSESSMENT AND PLAN:21 year old status post CS with normal course.Contraception plan: Oral contraceptivesFollow up: RTC for annual exams and PRBlake Watters MD CNOV Observed: 05/27/2017 Status: COMPLETED Source: JONES 2:00 PM [facility] REPOSITORY Office Visit (WOOB) -------CEDRIC HARMAN ([id number]) 1995 [facility] Time Provider Oyrlqvgpgg62/10/17 2:00 PM ALEXANDRE WATTERS WOOB During your visit today, we recorded the following information about you: Blood pressure Weight Height 112/60 99.8 kg 1.6 Ruslan Watters MD 05/27/2017 2 :34 PM SignedPOSTPARTUM VISITMercan Harman is a 21 year old year old here for visit.Delivery Summary:c/sPostpartum Recovery:Feeding: Breast feedingBreastfeeding problems: Inadequate milk supplyMenses since delivery: Not resumedMenstrual pattern prior to : Regular periodsIntercourse since delivery: ResumedDepression: denies symptoms of depression. Wasn't doing well but PCP increasedprozac and doing well. See depression screening tab.Emotional support: Yes, familyBowel symptoms: Negative for abdominal discomfort, blood in stools or blackstools and change in bowel habitsBladder symptoms: No dysuria, gross hematuria, urinary frequency, urinaryurgency, or incontinenceOther issues: NoneLast Pap: never HPV: n/aPAST MEDICAL HISTORYDiagnosis Date- Chlamydia 2013 and 2016- DepressionPAST SURGICAL HISTORYProcedure Laterality Date- DELIVERY ONLY 04/12/2017- PAST SURGICAL HISTORY OF oral (gum) surgeryFAMILY HISTORYProblem Relation Age of Onset- Allergies Mother- brain tumor benign [ OTHER] Father- Depression, anxiety , panic attacks [OTHER] Father- Hypertension Maternal Grandmother- Lipids Maternal Grandmother- Depression [OTHER] Maternal Grandmother- Asthma Maternal Grandfather- COPD Maternal GrandfatherSOCIAL HISTORY Social History Marital status: Single Spouse name: Years of education: 12 Number of children: 0Occupational HistoryOccupation Employer [employer]ocial History Main Topics Smoking status: Never Smoker Smokeless status: Never Used Alcohol use: No Drug use: No Sexual activity: Yes Partners with: Male control/protection: PillOther Topics ConcernMilitary Service NoSleep Concern YesStress Concern YesSpecial Diet NoExercise NoSeat Belt No Comment:now does since accidentSelf- Exams NoSocial History Narrative Lives with mom and step dad, 2 brothers and cousin No petsPHYSICAL EXAMINATION:BP 112/60 Ht 5' 3ANDquot; (1.60m) Wt 220 lb (99.8kg) BMI 38.98 kg/(m2).GENERAL: pleasant, female in no apparent distressHEENT: Normocephalic, atraumatic, mucus membranes moist and no lesionsNECK: Supple, full range of motion, no adenopathy and thyroid normalDERMATOLOGY: Normal, without lesions, non-icteric and non-hirsuteBREAST: soft, non-tender, symmetric, no dominant mass, normal nipple-areolarcomplex, no lymphadenopathy and no nipple dischargeCHEST: Normal inspiratory effortABDOMEN: soft, non-tender and no masses. No incisional redness, swelling, ordrainage.PELVIC: external genitalia normal, normal Bartholin's glands, urethra, [place]'sglands, no vulvar lesions, no cervical lesions, good vaginal support,physiologic discharge present, normal appearing perineal body and perianalregionBIMANUAL: uterus normal size, shape and consistency, no adnexal masses andnon-tenderNEURO: alert and oriented x3,exam grossly non- focalEXTREMITIES: normalASSESSMENT AND PLAN:21 year old status post CS with normal course.Contraception plan: Oral contraceptivesFollow up: RTC for annual exams and PRNRebMICHELLE Ramirezefmarion Provider: ALEXANDRE WATTERS [[id number]]Allergies As of Date: 05/27/2017(No Known Allergies)Date Reviewed: 05/27/2017Reviewed by: Alexandre Watters - Fully AssessedReason for Visit: Care [85] Cmt: 6 weeksPrimary Visit Diagnosis: exam [ Z39.2]Order(s):norgestimate 0.25 mg-ethinyl estradiol 35 mcg (SPRINTEC) 0.25-35 mg-mcg per tabletTake 1 tablet by mouth once daily.Disp: 1 PackageRfl: 12Prescriptions as of 05/27/2017 Sig: HYDROXYZINE PAMOATE 25 MG CAP* Take 1 capsule by mouth twice* IRON ORAL Take by mouth. FLUOXETINE 40 MG CAPSULE NORGESTIMATE 0.25 MG-ETHINYL * Take 1 tablet by mouth once d*Medication notes this encounter FLUOXETINE 40 MG CAPSULE >> January Flores Ma 04/2017 2:07 PM >> JANUARY FLORES MA May 27, 2017 2:07 PM Received from: External Pharmacy >> January Flores Ma 05/27/2017 2:07 PM >> MARK JANUARY FELIX TueMay 27, 2017 2:07 PM IBUPROFEN 600 MG TABLET >> January Mark Felix 05/27/2017 2:06 PM >& gt; MARK JANUARY FELIX TueMay 27, 2017 2:06 PM No longer taking STOOL SOFTENER ORAL >> January Mark Felix 05/27/2017 2:06 PM >> MARK CESILIA FELIXA TueMay 27, 2017 2:06 PM No longer taking FAMOTIDINE 20 MG TABLET >> January Mark Felix 05/27/2017 2:06 PM >& gt; MARK JANUARY FELIX TueMay 27, 2017 2:06 PM No longer taking PRE-JUSTINA MULTIVITAMINS/MINERALS ORAL >> January Mark Felix 05/27/2017 2:06 PM >> MARK JANUARY FELIX TueMay 27, 2017 2: 06 PM No longer takingProblem List As Of Date 05/27/2017 Noted Resolved control counseling [Z30.09] INVALID FOR*09/28/2016 Sore throat [J02.9] INVALID FOR*09/28/2016 More... Odynophagia [R13.10] INVALID FOR* More... Spotting in [O26.859] INVALID FOR*09/28/2016 More... History of depression [Z86.59] INVALID FOR*04/27/2017 More... Family history of defects [Z82.79] INVALID FOR*04/27/2017 More... Obesity in [O99.210] INVALID FOR*04/27/2017 More... Supervision of high risk due to socia*INVALID FOR*04/27/2017 More... Chlamydia infection affecting [O98.31* INVALID FOR*04/27/2017 More...Prescriptions ordered this encounter Disp Refills Start End NORGESTIMATE 0.25 MG-ETHINYL ESTRADI* 1 Pa* 12 05/27/2017 Route: ORAL Sig: Take 1 tablet by mouth once daily.Medications Discontinued During This Encounter ibuprofen (MOTRIN) 600 mg tablet 05/27/2017 Class: Historical Med Route: ORAL Sig: Take 600 mg by mouth every 6 hours as needed. Disc: Discontinued by Patient DOCUSATE CALCIUM ( STOOL SOFTENER ORA* 05/27/2017 Class: Historical Med Route: ORAL Sig: Take by mouth. Disc: Discontinued by Patient famotidine (PEPCID) 20 mg tablet 60 t* 1 01/05/2017 05/27/2017 Route: ORAL Sig: Take 1 tablet by mouth twice daily as needed. Disc: Discontinued by Patient PNV/IRON,CARB/OM-3/FA/FAT 1 (PRE-JUSTINA* 05/27/2017 Class: Historical Med Route: ORAL Sig: Take by mouth. Disc: Discontinued by Patient FLUoxetine (PROZAC) 20 mg capsule 30 c* 1 04/19/2017 05/27/2017 Route: ORAL Sig: Take 1 capsule by mouth once daily. Patient taking differently: Take 40 mg by mouth once daily. Disc: Discontinued by PatientLetter Kirill Watters M.D.[facility] [address] [address]Wa[place]: [phone]: Cedric HarmanDOB: 1995To Whom It May Concern:Cedric has been under my care and may return to work with no restrictionson 05/28/2017SinAlexandre henning M.D. Status:Closed by ALEXANDRE WATTERS MD on 05/27/17 CBC W/DIFF, AUTOMATED Collected: 05/20/2017 Status: F Source: [place] 12:14 PM [facility] REPOSITORY Order Comment: Order Date: 05/20/17Order Info: [id number] - CBCD TYPE CODE TESTS RESULT OUT OF RANGE REFERENCE UNITS LAB L100.1000 Normal 4.4-11.0 K/mm3 WBC 5.8 LAB L100.1200 Normal 4.2-5.4 M/mm3 RBC 4.24 LAB L100.1300 Low 12.0-15.0 g/dl HGB 11.2 LAB L100.1400 Low 37-47 % HCT 35.8 LAB L100.1500 Normal 81-99 fL MCV 84.4 LAB L100.1600 Low 27.0-32.0 pg MCH 26.4 LAB L100.1700 Low 32-36 g/gl MCHC 31.3 LAB L100.1810 High 11.6-14.6 % RDW 15.3 CV LAB L100.1820 High 35.1-43.9 fl RDW 46.2 SD LAB L100.1900 Normal 150-450 K/mm3 PLT 276 LAB L100.2000 Normal 6.2-12.0 fl MPV 11.7 LAB L100.2100 Normal 47-70 % NEUT% 67.6 LAB L100.2200 Normal 19-41 % LY% 23.0 LAB L100.2300 Normal 0-10 % MONO% 6.3 LAB L100.2400 Normal 0-5 % EO% 2.6 LAB L100.2500 Normal 0-1 % BASO% 0.5 LAB L100.2550 Normal 0.0-0.9 % IM 0.000 GRAN % Result Comment: IG% - Immature Granulocytes (promyelocytes, myelocytes andmetamyelocytes) > 1% indicates that a LEFT SHIFT is Present. LAB L100.2620 Normal 2.0-7.7 X10 3/uL Absolute Neut 3.9 LAB L100.2720 Normal 0.83-4.51 X10 3/ul Absolute Lymph 1.34 Performed By: #### L100.0100, L500.4050, L501.9520, L503.6075, L503.6150, L503.6550 ####[facility] [address] [place], [place], [address] COMPREHENSIVE METABOLIC Collected: 05/20/2017 Status: F Source: [facility] 12:14 PM [facility] REPOSITORY Order Comment: Order Date: 05/20/17Order Info: [id number] - CMPOrder Info: [id number] - TSHOrder Info: [id number] - TIBCOrder Info: [id number] - FEOrder Info: [id number] - WOLF TYPE CODE TESTS RESULT OUT OF RANGE REFERENCE UNITS LAB L501.0100 Normal 70-110 mg/dL GLU 82 LAB L501.1000 Normal 7-18 mg/dL BUN 8 LAB L501.1100 Normal 0.55-1.02 mg/dL 0.74 CREAT,SERUM Result Comment: The validity of the calculated GFR AND GFRAA in patients over70 years has not been determined. Clinical correlation isessential. LAB L501.1110 Normal >60 mL/min EST GFR 107 Result Comment: Non- GFR Calc LAB L501.1115 Normal >60 mL/min EST GFR - 130 AA Result Comment: GFR Calc LAB L501.1300 Normal 10-20 RATIO BUN/CRE 10.9 LAB L501.1500 Normal 6.4-8.2 g/dL T PROT 7.7 LAB L501.1800 Normal 3.4-5.0 g/dL ALB 3.7 Result Comment: Please note revised Albumin AND Globulin reference rangeeffective 2017. LAB L501.1950 Normal 2.2-4.2 g/dL GLOB 4.0 LAB L501.2000 Normal 0.9-2.4 RATIO A/G 0.9 LAB L501.2200 Normal 8.5-10.1 mg/dL CA 9.1 LAB L501.4100 Normal 15-37 U/L AST 17 LAB L501.4305 Normal 45-117 U/L ALK P 112 LAB L501.4405 Normal 12-78 U/L ALT 23 LAB L501.4600 Normal 0.20-1.00 mg/dL T BILI 0.30 LAB L501.5300 Normal 136-145 mmol/L NA 142 LAB L501.5600 Normal 3.5-5.1 mmol/L K 4.0 LAB L501.5900 Normal 98-107 mmol/L CL 106 LAB L501.6100 Normal 21.0-32.0 mmol/L CO2 26.0 LAB L501.6200 Normal 5-15 GAP 10 Performed By: #### L100.0100, L500.4050, L501.9520, L503.6075, L503.6150, L503.6550 ####[facility] [address] [place], [place], [address] THYROID STIM HORMONE Collected: 05/20/2017 Status: F Source: [place] (TSH) 12:14 PM [facility] REPOSITORY Order Comment: Order Date: 05/20/17Order Info: [id number] - CMPOrder Info: [id number] - TSHOrder Info: [id number] - TIBCOrder Info: [id number] - FEOrder Info: [id number] - WOLF TYPE CODE TESTS RESULT OUT OF RANGE REFERENCE UNITS LAB L501.9520 Normal 0.358-3.74 uIU/mL TSH 0.83 Performed By: #### L100.0100, L500.4050, L501.9520, L503.6075, L503.6150, L503.6550 ####[facility] [address] [place], [place], [address] IRON BINDING Collected: 05/20/2017 Status: F Source: [facility] 12:14 PM [facility] REPOSITORY Order Comment: Order Date: 05/20/17Order Info: [id number] - CMPOrder Info: [id number] - TSHOrder Info: [id number] - TIBCOrder Info: [id number] - FEOrder Info: 6-4 - WOLF TYPE CODE TESTS RESULT OUT OF RANGE REFERENCE UNITS LAB L503.6075 Normal 250-450 ug/dL TIBC 360 Performed By: #### L100.0100, L500.4050, L501.9520, L503.6075, L503.6150, L503.6550 ####[facility] [address] [place], [place], [address] IRON Collected: 05/20/2017 Status: F Source: [place] 12:14 PM [facility] REPOSITORY Order Comment: Order Date: 05/20/17Order Info: [id number] - CMPOrder Info: [id number] - TSHOrder Info: 2499-7 - TIBCOrder Info: 2498-4 - FEOrder Info: 2276-4 - WOLF TYPE CODE TESTS RESULT OUT OF RANGE REFERENCE UNITS LAB L503.6150 Low 50-170 ug/dL IRON 37 Performed By: #### L100.0100, L500.4050, L501.9520, L503.6075, L503.6150, L503.6550 ####[facility] [address] [place], [place], [address] FERRITIN Collected: 05/20/2017 Status: F Source: [place] 12:14 PM [facility] Order Comment: Order Date: 05/20/17Order Info: [id number] - CMPOrder Info: [id number] - TSHOrder Info: 2500-7 - TIBCOrder Info: [id number] - FEOrder Info: 2276-4 - WLOF TYPE CODE TESTS RESULT OUT OF RANGE REFERENCE UNITS LAB L503.6550 Normal 8-252 ng/mL FERRITIN 19 Performed By: #### L100.0100, L500.4050, L501.9520, L503.6075, L503.6150, L503.6550 ####[facility] [address] [place], [address] XR KNEE 4V AP/PA Observed: 05/09/2017 Status: F Source: J[place]ES BOTH+LAT/TRICE LT 4:24 PM [facility] REPOSITORY * * *Final Report* * *DATE OF EXAM: May 09 2017 4:24PM WOX 5202 - XR KNEE 4V AP/PA BOTH+LAT/TRICE LT / REASON: Unspecified injury of left lower leg, initial encounter * * * * Physician Interpretation * * * * HISTORY: InjuryTECHNIQUE: Upright AP and tunnel views of both knees, sunrise and lateral views of the leftCOMPARISON: NoneRESULT: Bony and joint structures appear intact. No knee joint effusion is noted.IMPRESSION: Unremarkable studyTranscriptionist: ABEBA Transcribe Date/Time: May 09 2017 4:29PDictated by : TOMMY DIETZ MDThis examination was interpreted and the report reviewed and electronically signed by: TOMMY DEITZ MD on May 09 2017 4:31PM [id number] PROGRESS Observed: 05/09/2017 Status: COMPLETED Source: [place] 4:10 PM [facility] REPOSITORY HNO ID: [id number]: Moraima () Monse Santos: (none)Author Type: TechnicianType: Progress NotesFiled: 05/09/2017 4:26 PMNote Text: Radiology Service Progress NotePATIENT NAME: Cedric HarmanMRN: [id number] OF SERVICE: May 09, 2017TIME: 4:10 PMPATIENT IDENTITY VERIFICATION COMPLETED USING TWO (2) METHODS: Patientconfirmed name verbally and Date of .PATIENT GENDER DATA: Female. status: : NoBreastfeeding status: NO.PATIENT RELEVANT IMPLANT DATA REVIEWED: Not ApplicableRADIOLOGY DEPARTMENT: General X- ray: Exam(s) Completed: Lower ExtremityX-Ray(s): Knee, AP / Lat / Tunne / Merchant Left and Wt. Bearing:PERIPHERAL IV DATA: Not applicableSIGNED BY: Alfonso Angel 2016 4:10 PM PROGRESS Observed: 05/09/2017 Status: COMPLETED Source: [place] 3:52 PM [facility] REPOSIT[facility] HNO ID: [id number]: Aureliano Morton) Smitha: (none)Author Type: Physician AssistantType: Progress NotesFiled: 05/09/2017 4: 55 PMNote Text:05/09/2017Patient presents with:Knee Pain: 1 hour left knee pain after fallSUBJECTIVE: This is a 21 year old that is here today for Complaint(s) ofleft knee pain x 1 hour ago. States she fell in the waiting area at [facility].Landed directly on the front of the knee. Now having pain with weightbearing. + swelling.PAST MEDICAL HISTORYDiagnosis Date- Chlamydia 2013 and 2017- DepressionALLERGIES Review of patient's allergies indicates no known allergies.MEDICATIONSCurrent Outpatient Prescriptions:metroNIDAZOLE (FLAGYL) 500 mg tablet Take 1 tablet by mouth twice dailyfor 7 days.fluconazole (DIFLUCAN) 150 mg tablet Take 1 tablet by mouth one time onlyfor 1 dose.hydrOXYzine pamoate (VISTARIL) 25 mg capsule Take 1 capsule by mouth twicedaily as needed for Anxiety.ibuprofen (MOTRIN) 600 mg tablet Take 600 mg by mouth every 6 hours asneeded.DOCUSATE CALCIUM (STOOL SOFTENER ORAL) Take by mouth.FERROUS SULFATE (IRON ORAL) Take by mouth.FLUoxetine (PROZAC) 20 mg capsule Take 1 capsule by mouth once daily.famotidine (PEPCID) 20 mg tablet Take 1 tablet by mouth twice daily asneeded.PNV/IRON,CARB/OM-3/FA/FAT 1 (PRE-JUSTINA MULTIVITAMINS/MINERALS ORAL) Take bymouth.No current facility-administered medications for this visit.SOCIAL HISTORYSocial History Marital status: Single Spouse name: Years of education: 12 Number of children: 0Occupational HistoryOccupation Employer [employer] History Main Topics Smoking status: Never Smoker Smokeless status: Never Used Alcohol use: No Drug use: No Sexual activity: Yes Partners with: Male control/protection: PillOther Topics ConcernMilitary Service NoSleep Concern YesStress Concern YesSpecial Diet NoExercise NoSeat Belt No Comment:now does since accidentSelf-Exams NoSocial History Narrative Lives with mom and step dad, 2 brothers and cousin No petsREVIEW OF SYSTEMSAll other reviewed and negative other than HPI.OBJECTIVE:BP 110/60 Pulse 88 Temp 37.4 ?C (99.3 ?F) (Left Tympanic) Resp 16 Wt 101.6 kg (224 lb) BMI 40.32 kg/ [id number] Well appearing, alert, in no acute distress, well-hydrated,well nourished.EXTREMITIES + mild abrasion left anterior knee. Minimal swellingappreciated. + TTP over proximal tibia and inferior patella. Normal ROM.Pain with flexion. No joint line TTP. Normal pulses bilaterally.ASSESSMENT/PLAN:1. Left knee injury, initial encounter - ICD9: 959.7, ICD10: S89.92XAIce, rest, elevationNo obvious fractureContusionF/u in 7-10 days if not improving, sooner if worsening- XR KNEE GENERAL 4V AP BOTH/PA BOTH/LAT/MERC LTThe patient indicates understanding of these issues and agrees with theplan.TESSIE Alfred-05/09/2017 CNOV Observed: 05/09/2017 Status: COMPLETED Source: [place] 3:30 PM [facility] REPOSITORY Office Visit (UCWSTR) ---------CEDRIC HARMAN ([id number]) 1995 FDate Time Provider Atgvzovksh82/23/17 3:30 PM AURELIANO SIMEON (FABRICIO) UCWSTR During your visit today, we recorded the following information about you: Temperature Pulse Respiration Blood pressure 99.3 degrees 88/minute 16/minute 110/60 Weight 101.6 kgAureliano Simeon PA-C 05/09/2017 4:55 PM Gvtlcw9705/09/2017Patient presents with:Knee Pain: 1 hour left knee pain after fallSUBJECTIVE: This is a 21 year old that is here today for Complaint(s) of leftknee pain x 1 hour ago. States she fell in the waiting area at [facility]. Landeddirectly on the front of the knee. Now having pain with weight bearing. +swelling.PAST MEDICAL HISTORYDiagnosis Date- Chlamydia 2013 and 2017- DepressionALLERGIES Review of patient's allergies indicates no known allergies.MEDICATIONSCurrent Outpatient Prescriptions:metroNIDAZOLE (FLAGYL) 500 mg tablet Take 1 tablet by mouth twice daily for 7days.fluconazole (DIFLUCAN) 150 mg tablet Take 1 tablet by mouth one time only for 1dose.hydrOXYzine pamoate (VISTARIL) 25 mg capsule Take 1 capsule by mouth twicedaily as needed for Anxiety.ibuprofen (MOTRIN) 600 mg tablet Take 600 mg by mouth every 6 hours as needed.DOCUSATE CALCIUM (STOOL SOFTENER ORAL) Take by mouth.FERROUS SULFATE (IRON ORAL) Take by mouth.FLUoxetine ( PROZAC) 20 mg capsule Take 1 capsule by mouth once daily.famotidine (PEPCID) 20 mg tablet Take 1 tablet by mouth twice daily as needed.PNV/IRON,CARB/OM-3/FA/FAT 1 (PRE-JUSTINA MULTIVITAMINS/MINERALS ORAL) Take bymouth.No current facility-administered medications for this visit.SOCIAL HISTORYSocial History Marital status: Single Spouse name: Years of education: 12 Number of children : 0Occupational 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ocial History Main Topics Smoking status: Never Smoker Smokeless status: Never Used Alcohol use: No Drug use: No Sexual activity: Yes Partners with: Male control/ protection: PillOther Topics ConcernMilitary Service NoSleep Concern YesStress Concern YesSpecial Diet NoExercise NoSeat Belt No Comment :now does since accidentSelf-Exams NoSocial History Narrative Lives with mom and step dad, 2 brothers and cousin No petsREVIEW OF SYSTEMSAll other reviewed and negative other than HPI.OBJECTIVE:BP 110/60 Pulse 88 Temp 37.4 ?C (99.3 ?F) (Left Tympanic) Resp 16 Wt101.6 kg (224 lb) BMI 40.32 kg/[id number] Well appearing, alert, in no acute distress, well-hydrated, wellnourished.EXTREMITIES + mild abrasion left anterior knee. Minimal swelling appreciated.+ TTP over proximal tibia and inferior patella. Normal ROM. Pain with flexion. No joint line TTP. Normal pulses bilaterally.ASSESSMENT/PLAN:1. Left knee injury, initial encounter - ICD9: 959.7, ICD10: S89.92XAIce, rest, elevationNo obvious fractureContusionF/u in 7-10 days if not improving, sooner if worsening- XR KNEE GENERAL 4V AP BOTH/PA BOTH/LAT/MERC LTThe patient indicates understanding of these issues and agrees with the plan.TESSIE Alfred-05/09/2017Referring Provider: SELF [200]Allergies As of Date: 05/09/2017(No Known Allergies)Date Reviewed: 05/09/2017Reviewed by: Renetta Lucio LPN - Fully AssessedReason for Visit: Knee Pain [132] Cmt: 1 hour left knee pain after fallPrimary Visit Diagnosis:Left knee injury, initial encounter [S89.92XA]Order(s):XR KNEE GENERAL 4V AP BOTH/PA BOTH/LAT/MERC LT [[id number]] Order #: [id number] FUTUREPrescriptions as of 05/09/2017 Sig: METRONIDAZOLE 500 MG TABLET Take 1 tablet by mouth twice * FLUCONAZOLE 150 MG TABLET Take 1 tablet by mouth one ti* HYDROXYZINE PAMOATE 25 MG CAP* Take 1 capsule by mouth twice* IBUPROFEN 600 MG TABLET Take 600 mg by mouth every 6 * STOOL SOFTENER ORAL Take by mouth. IRON ORAL Take by mouth. FLUOXETINE 20 MG CAPSULE Take 1 capsule by mouth once * FAMOTIDINE 20 MG TABLET Take 1 tablet by mouth twice * PRE-JUSTINA MULTIVITAMINS/MINERAL* Take by mouth.Problem List As Of Date 05/09/2017 Noted Resolved control counseling [Z30.09] INVALID FOR*2016 Sore throat [J02.9] INVALID FOR*09/28/2016 More... Odynophagia [R13.10 ] INVALID FOR* More... Spotting in [O26.859] INVALID FOR*09/28/2016 More... History of depression [Z86.59] INVALID FOR*2016 More... Family history of defects [Z82.79] INVALID FOR*04/27/2017 More... Obesity in [O99.210] INVALID FOR*04/27/2017 More... Supervision of high risk due to socia*INVALID FOR*04/27/2017 More... Chlamydia infection affecting [O98.31*INVALID FOR*04/27/2017 More... Status:Closed by AURELIANO SIMEON PA-C on 05/09/17 HOSP Observed: 05/09/2017 Status: COMPLETED Source: [place] 3:00 PM [facility] REPOSITORY Office Visit (WOOB) -------CEDRIC HARMAN ([id number]) 1995 FDate Time Provider Kzucdgxipf14/23/17 3:00 PM VAISHALI ROSALES (ZITA) WOOB During your visit today, we recorded the following information about you: Blood pressure Weight 132/76 101.6 kgVaishali Rosales CNM 05/09/2017 3:21 PM Nidia Arroyoell is a 21 year old female who presents for problem visit forvaginal discharge.HPI: Vaginal discharge with odor that started 2 days ago. C/S on 04/12/17.[place] 2 days ago. Discharge was present prior to C/S but notices odor atthis time. Denies any other pain or problems. Incision healing well and nocomplaints. Patient fell in waiting area coming back to exam room. Left legpain present.PAST MEDICAL HISTORYDiagnosis Date- Chlamydia 2013 and 2017- DepressionPAST SURGICAL HISTORYProcedure Laterality Date- DELIVERY ONLY 04/12/2017- PAST SURGICAL HISTORY OF oral (gum) surgeryFAMILY HISTORYProblem Relation Age of Onset- Allergies Mother- brain tumor benign [OTHER] Father- Depression, anxiety , panic attacks [OTHER] Father- Hypertension Maternal Grandmother- Lipids Maternal Grandmother - Depression [OTHER] Maternal Grandmother- Asthma Maternal Grandfather- COPD Maternal GrandfatherSocial History Marital status: Single Spouse name: Years of education: 12 Number of children: 0Occupational 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ocial History Main Topics Smoking status: Never Smoker Smokeless status : Never Used Alcohol use: No Drug use: No Sexual activity: Yes Partners with: Male control/protection: PillOther Topics ConcernMilitary Service NoSleep Concern YesStress Concern YesSpecial Diet NoExercise NoSeat Belt No Comment:now does since accidentSelf-Exams NoSocial History Narrative Lives with mom and step dad, 2 brothers and cousin No petsCurrent Outpatient Prescriptions:hydrOXYzine pamoate (VISTARIL) 25 mg capsule Take 1 capsule by mouth twicedaily as needed for Anxiety.ibuprofen (MOTRIN) 600 mg tablet Take 600 mg by mouth every 6 hours as needed.FERROUS SULFATE ( IRON ORAL) Take by mouth.FLUoxetine (PROZAC) 20 mg capsule Take 1 capsule by mouth once daily.PNV/ IRON,CARB/OM-3/FA/FAT 1 (PRE-JUSTINA MULTIVITAMINS/MINERALS ORAL) Take bymouth.DOCUSATE CALCIUM (STOOL SOFTENER ORAL) Take by mouth.famotidine (PEPCID) 20 mg tablet Take 1 tablet by mouth twice daily as needed.No current facility-administered medications for this visit.Allergies As of Date: 2016(No Known Allergies)Fully Assessed 05/09/2017REVIEW OF SYSTEMSAbdomen: No bloating, early satiety, indigestion, or increased flatulence. Noabdominal pain, nausea, vomiting, diarrhea, or constipation.Bladder: No dysuria, gross hematuria, urinary frequency, urinary urgency, orincontinence.Breast: No breast lumps, nipple d/c, overlying skin changes, redness or skinretraction.Expanded ROS: N/ AAllergies and current medication updated:YesEXAM: BP 132/76 Wt 224 lb (101.6kg)GENERAL: pleasant, female in no apparent distressAbdomen. C/S incision healing, no erythremic areas or discharge.PELVIC: external genitalia normal, normal Bartholin's glands, urethra, [place]'sglands, no vulvar lesions, no cervical lesions, good vaginal support, normalappearing perineal body and perianal region, Vaginal discharge, charles/white,slight odor.Wet Prep: positive for clue cells with amine odor and pseudohyphae and budsNEURO: alert and oriented x3,exam grossly non-focalEXTREMITIES: normalASSESSMENT AND PLAN:ASSESSMENT/PLAN:1. Vaginal discharge - ICD9: 623.5, ICD10: N89.8 (primary diagnosis)2. BV (bacterial vaginosis) - ICD9: 616.10, 041.9, ICD10: N76.0, B96.89-Flagyl 500mg PO BID x 7daysNo intercourse or alcohol during treatment3. Vaginal yeast infection - ICD9: 112.1 , ICD10: B37.3-Diflucan 150mg PO onceProbiotic by mouth daily for 30 days.Fell in office. Incident report filled out by ISIDRO Pace. Patient to go [facility] for evaluation.Jaci Purvis Ma 05/09/2017 4:56 PM SignedMercan Roberto Harman is here for an appointment today with Vaishali Rosales CNM andexperienced a fall during her clinical visit. The patient fell when she stoodup from the chair in the waiting room and her sandal twisted sideways .Location of fall: [facility] Waiting Room.Brief Factual Description: Pt fell when she stood up from a chair in thewaiting room and her sandal twisted sideways. She fell on her left knee.Contributing Factors: flip flopsDid patient hit head or neck? NoIs the patient having any pain? Yes: Location Left knee Pain Scale: 8 on ascale from 0-10Is patient alert? YESInjury: Rug burnINTERVENTIONS:Immediate Actions Taken: Provider notifiedIce applied to left kneeName of LIP Notified: Roni Purvisitional Prevention Measures:pt refused interventions/assistanceReferring Provider: SELF [200]Allergies As of Date: (No Known Allergies)Date Reviewed: 05/09/2017Reviewed by: Renetta Lucio LPN - Fully AssessedReason for Visit: Vaginal Problem [117] Cmt: Vaginal DischargePrimary Visit Diagnosis:Vaginal discharge [N89.8] Other Visit Diagnoses:BV (bacterial vaginosis) [N76.0, B96.89] Vaginal yeast infection [B37.3]Order(s):metroNIDAZOLE (FLAGYL) 500 mg tabletTake 1 tablet by mouth twice daily for 7 days.Disp: 14 tabletRfl: 0 fluconazole (DIFLUCAN) 150 mg tabletTake 1 tablet by mouth one time only for 1 dose.Disp: 1 tabletRfl: 0Prescriptions as of 05/09/2017 Sig: HYDROXYZINE PAMOATE 25 MG CAP* Take 1 capsule by mouth twice* IBUPROFEN 600 MG TABLET Take 600 mg by mouth every 6 * IRON ORAL Take by mouth. FLUOXETINE 20 MG CAPSULE Take 1 capsule by mouth once * PRE-JUSTINA MULTIVITAMINS/MINERAL * Take by mouth. METRONIDAZOLE 500 MG TABLET Take 1 tablet by mouth twice * FLUCONAZOLE 150 MG TABLET Take 1 tablet by mouth one ti* STOOL SOFTENER ORAL Take by mouth. FAMOTIDINE 20 MG TABLET Take 1 tablet by mouth twice *Problem List As Of Date 2016 Noted Resolved control counseling [Z30.09] INVALID FOR*09/28 Sore throat [J02.9] INVALID FOR*09/28/2016 More... Odynophagia [R13.10] INVALID FOR* More... Spotting in [O26.859] INVALID FOR*09/28/2016 More... History of depression [Z86.59] INVALID FOR*04/27/2017 More... Family history of defects [Z82.79] INVALID FOR*2016 More... Obesity in [O99.210] INVALID FOR*04/27/2017 More... Supervision of high risk due to socia*INVALID FOR*04/27/2017 More... Chlamydia infection affecting [O98.31*INVALID FOR*04/27/2017 More...Visit Notes:>> Katelynn Horta Ma Mon May 09, 2017 4:49 PM Status: Nidia Arroyoell is here for an appointment today with João Purvis experienced a fall during her clinical visit. The patient fell whenshe stood up from the chair in the waiting room and her sandal twistedsideways .Location of fall: [facility] Waiting Room.Brief Factual Description: Pt fell when she stood up from a chair in thewaiting room and her sandal twisted sideways. She fell on her left knee.Contributing Factors: flip flopsDid patient hit head or neck? NoIs the patient having any pain? Yes: Location Left knee Pain Scale: 8 nicki scale from 0-10Is patient alert? YESInjury: Rug burnINTERVENTIONS:Immediate Actions Taken : Provider notifiedIce applied to left kneeName of LIP Notified: Roni Purvisitional Prevention Measures:pt refused interventions/assistancePrescriptions ordered this encounter Disp Refills Start End METRONIDAZOLE 500 MG TABLET 14 t* 0 05/09/2017 05/16/2017 Route: ORAL Sig: Take 1 tablet by mouth twice daily for 7 days. FLUCONAZOLE 150 MG TABLET 1 ta* 0 05/09/2017 05/09/2017 Route: ORAL Sig: Take 1 tablet by mouth one time only for 1 dose.Disposition: Return if symptoms worsen or fail to improve, for To Urgent Care for evaluation of fall. .Follow-up and Disposition History RecordedEncounter Number : [id number] Status:Closed by VAISHALI ROSALES on 05/09/17 PROGRESS Observed: 05/09/2017 Status: COMPLETED Source: [place]ON[place] 2:59 PM [facility] RE[facility]IT[facility] HNO ID: [id number]: Vaishali (Kushal) BobbyService: (none)Author Type: MidwifeType: Progress NotesFiled: 05/09/2017 3:21 PMNote Text:Cedric Harman is a 21 year old female who presents for problem visitfor vaginal discharge.HPI: Vaginal discharge with odor that started 2 days ago. C/ S [place] 04/12/17.[place]. Discharge was present prior to C/S but noticesodor at this time. Denies any other pain or problems. Incision healingwell and no complaints. Patient fell in waiting area coming back to examroom. Left leg pain present.PAST MEDICAL HISTORYDiagnosis Date- Chlamydia 2013 and 2017- DepressionPAST SURGICAL HISTORYProcedure Laterality Date- DELIVERY ONLY 04/12/2017- PAST SURGICAL HISTORY OF oral (gum) surgeryFAMILY HISTORYProblem Relation Age of Onset- Allergies Mother- brain tumor benign [OTHER] Father- Depression, anxiety , panic attacks [OTHER] Father- Hypertension Maternal Grandmother- Lipids Maternal Grandmother- Depression [OTHER] Maternal Grandmother- Asthma Maternal Grandfather- COPD Maternal GrandfatherSocial History Marital status: Single Spouse name: Years of education: 12 Number of children: 0Occupational 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ocial History Main Topics Smoking status: Never Smoker Smokeless status: Never Used Alcohol use : No Drug use: No Sexual activity: Yes Partners with: Male control/protection: PillOther Topics ConcernMilitary Service NoSleep Concern YesStress Concern YesSpecial Diet NoExercise NoSeat Belt No Comment:now does since accidentSelf-Exams NoSocial History Narrative Lives with mom and step dad, 2 brothers and cousin No petsCurrent Outpatient Prescriptions:hydrOXYzine pamoate (VISTARIL) 25 mg capsule Take 1 capsule by mouth twicedaily as needed for Anxiety.ibuprofen (MOTRIN) 600 mg tablet Take 600 mg by mouth every 6 hours asneeded.FERROUS SULFATE (IRON ORAL) Take by mouth.FLUoxetine (PROZAC) 20 mg capsule Take 1 capsule by mouth once daily.PNV/IRON,CARB/OM-3/FA/FAT 1 (PRE-JUSTINA MULTIVITAMINS/MINERALS ORAL) Take bymouth.DOCUSATE CALCIUM (STOOL SOFTENER ORAL) Take by mouth.famotidine (PEPCID) 20 mg tablet Take 1 tablet by mouth twice daily asneeded.No current facility-administered medications for this visit.Allergies As of Date: 05/09/2017(No Known Allergies)Fully Assessed 05/09/2017REVIEW OF SYSTEMSAbdomen: No bloating, early satiety, indigestion, or increased flatulence.No abdominal pain, nausea, vomiting, diarrhea, or constipation.Bladder: No dysuria , gross hematuria, urinary frequency, urinary urgency,or incontinence.Breast: No breast lumps, nipple d/c, overlying skin changes, redness orskin retraction.Expanded ROS: N/AAllergies and current medication updated:YesEXAM: BP 132/76 Wt 224 lb (101.6kg)GENERAL: pleasant, female in no apparent distressAbdomen. C/ S incision healing, no erythremic areas or discharge.PELVIC: external genitalia normal, normal Bartholin's glands, urethra,[place]'s glands, no vulvar lesions, no cervical lesions, good vaginalsupport, normal appearing perineal body and perianal region, Vaginaldischarge, charles/white, slight odor.Wet Prep: positive for clue cells with amine odor and pseudohyphae andbudsNEURO: alert and oriented x3,exam grossly non-focalEXTREMITIES: normalASSESSMENT AND PLAN:ASSESSMENT/PLAN:1. Vaginal discharge - ICD9: 623.5, ICD10: N89.8 (primary diagnosis)2. BV (bacterial vaginosis) - ICD9: 616.10, 041.9, ICD10: N76.0, B96.89-Flagyl 500mg PO BID x 7daysNo intercourse or alcohol during treatment3. Vaginal yeast infection - ICD9: 112.1, ICD10: B37.3-Diflucan 150mg PO onceProbiotic by mouth daily for 30 days.Fell in office. Incident report filled out by ISIDRO Pace. Patient to go [facility] for evaluation.Vaishali Rosales CNM PROGRESS Observed: 04/27/2017 Status: COMPLETED Source: JONES 11:27 AM [facility] REPOSITORY O ID: [id number]: Alexandre Woody: (none) Author Type: PhysicianType: Progress NotesFiled: 04/27/2017 11:44 AMNote Text: VISITMerceddorcas Harman is a 21 year old year old here for postpartumvisit.Delivery Summary:c/sPostpartum Recovery:Feeding: Bottle feedingBreastfeeding problems: Inadequate milk supplyBowel symptoms: Negative for abdominal discomfort, blood in stools orblack stools and change in bowel habitsBladder symptoms: No dysuria, gross hematuria, urinary frequency, urinaryurgency, or incontinencePAST MEDICAL HISTORYDiagnosis Date- Chlamydia 2013 and 2017- DepressionPAST SURGICAL HISTORYProcedure Laterality Date- DELIVERY ONLY 04/12/2017- PAST SURGICAL HISTORY OF oral (gum) surgeryFAMILY HISTORYProblem Relation Age of Onset- Allergies Mother- brain tumor benign [OTHER] Father- Depression, anxiety , panic attacks [OTHER] Father- Hypertension Maternal Grandmother- Lipids Maternal Grandmother- Depression [OTHER] Maternal Grandmother- Asthma Maternal Grandfather- COPD Maternal GrandfatherSOCIAL HISTORY Social History Marital status: Single Spouse name: Years of education: 12 Number of children: 0Occupational 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ocial History Main Topics Smoking status: Never Smoker Smokeless status: Never Used Alcohol use: No Drug use: No Sexual activity: Yes Partners with: Male control/protection: PillOther Topics ConcernMilitary Service NoSleep Concern YesStress Concern YesSpecial Diet NoExercise NoSeat Belt No Comment:now does since accidentSelf-Exams NoSocial History Narrative Lives with mom and step dad, 2 brothers and cousin No petsPHYSICAL EXAMINATION:BP 118/78 Wt 221 lb (100.2kg)GENERAL: pleasant, female in no apparent distressABDOMEN: soft, non-tender and no masses. No incisional redness, swelling,or drainage.ASSESSMENT AND PLAN:21 year old status post c/s with PP anxietyagree w/ cont prozacreassured about incisionFollow up: f/u for 6 week visit or prnvistaril prnRgloria Watters MD CNOV Observed: 04/27/2017 Status: COMPLETED Source: [place] 11:20 AM [facility] REPOSITORY Office Visit (WOOB) -------GHAZALCEDRIC Mejia ([id number]) 1995 FDate Time Provider Bptphuwddm93/11/17 11:20 AM ALEXANDRE WATTERS During your visit today, we recorded the following information about you: Blood pressure Weight 118/78 100.2 kgRerajeev Watters MD 04/27/2017 11:44 AM SignedPOSTPARTUM VISITCedric Harman is a 21 year old year old here for visit.Delivery Summary:c/sPostpartum Recovery:Feeding: Bottle feedingBreastfeeding problems: Inadequate milk supplyBowel symptoms: Negative for abdominal discomfort, blood in stools or blackstools and change in bowel habitsBladder symptoms: No dysuria, gross hematuria, urinary frequency, urinaryurgency, or incontinencePAST MEDICAL HISTORYDiagnosis Date- Chlamydia 2013 and 2016- DepressionPAST SURGICAL HISTORYProcedure Laterality Date- DELIVERY ONLY 04/12/2017- PAST SURGICAL HISTORY OF oral (gum) surgeryFAMILY HISTORYProblem Relation Age of Onset- Allergies Mother- brain tumor benign [OTHER] Father- Depression, anxiety , panic attacks [OTHER] Father- Hypertension Maternal Grandmother- Lipids Maternal Grandmother - Depression [OTHER] Maternal Grandmother- Asthma Maternal Grandfather- COPD Maternal GrandfatherSOCIAL HISTORY Social History Marital status: Single Spouse name: Years of education: 12 Number of children: 0Occupational 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ocial History Main Topics Smoking status: Never Smoker Smokeless status: Never Used Alcohol use: No Drug use: No Sexual activity: Yes Partners with : Male control/protection: PillOther Topics ConcernMilitary Service NoSleep Concern YesStress Concern YesSpecial Diet NoExercise NoSeat Belt No Comment:now does since accidentSelf-Exams NoSocial History Narrative Lives with mom and step dad, 2 brothers and cousin No petsPHYSICAL EXAMINATION:BP 118/78 Wt 221 lb (100.2kg)GENERAL: pleasant, female in no apparent distressABDOMEN: soft, non-tender and no masses. No incisional redness, swelling, ordrainage.ASSESSMENT AND PLAN:21 year old status post c/s with PP anxietyagree w/ cont prozacreassured about incisionFollow up: f/u for 6 week visit or prnvistaril prnRgloria Watters, MDReferring Provider: SELF [[id number]]Allergies As of Date: 04/27/2017(No Known Allergies)Date Reviewed: 04/27/2017Reviewed by: Alexandre Watters - Fully AssessedPrimary Visit Diagnosis: care and examination [Z39.2]Order(s):hydrOXYzine pamoate ( VISTARIL) 25 mg capsuleTake 1 capsule by mouth twice daily as needed for Anxiety.Disp: 30 capsuleRfl: 0Prescriptions as of 04/27/2017 Sig: IBUPROFEN 600 MG TABLET Take 600 mg by mouth every 6 * IRON ORAL Take by mouth. FLUOXETINE 20 MG CAPSULE Take 1 capsule by mouth once * PRE-JUSTINA MULTIVITAMINS/MINERAL* Take by mouth. HYDROXYZINE PAMOATE 25 MG CAP* Take 1 capsule by mouth twice* STOOL SOFTENER ORAL Take by mouth. FAMOTIDINE 20 MG TABLET Take 1 tablet by mouth twice *Problem List As Of Date 04/27/2017 Noted Resolved control counseling [Z30.09] INVALID FOR*09/28/2016 Sore throat [J02.9] INVALID FOR*09/28/2016 More... Odynophagia [R13.10] INVALID FOR* More... Spotting in [O26.859] INVALID FOR*09/28/2016 More... History of depression [Z86.59] INVALID FOR*04/27/2017 More... Family history of defects [Z82.79] INVALID FOR*04/27/2017 More... Obesity in [O99.210] INVALID FOR*2016 More... Supervision of high risk due to socia*INVALID FOR*04/27/2017 More... Chlamydia infection affecting [O98.31*INVALID FOR*04/27/2017 More...Prescriptions ordered this encounter Disp Refills Start End HYDROXYZINE PAMOATE 25 MG CAPSULE 30 c* 0 04/27/2017 Route: ORAL Sig: Take 1 capsule by mouth twice daily as needed for Anxiety.Medications Discontinued During This Encounter MEDICATION, NON-DATABASE 04/27/2017 Class: Historical Med Sig: Antibiotic for bladder infection Disc: Reason for discontinue is not on file. cyclobenzaprine (FLEXERIL) 5 mg tabl* 12 t* 0 201604/27/2017 Route: ORAL Sig: Take 1 tablet by mouth three times daily as needed. Disc: Reason for discontinue is not on file.Disposition: Return in about 1 year (around 04/27/2018) .Follow-up and Disposition History RecordedEncounter Number: [id number] Status:Closed by ALEXANDRE WATTERS MD on 04/27/17 PROGRESS Observed: 04/21/2017 Status: COMPLETED Source: [place] 4:09 PM [facility] REPOSITORY HNO ID: [id number]: Bushra Abarca: (none) Author Type: PhysicianType: Progress NotesFiled: 04/21/2017 4:54 PMNote Text:Cedric Harman is a 21 year old female who presents for incisiondrainage.HPI: Patient reports some red fluid from her incision AND thinks a differentspot is opening. Depression is stable. States she is worried d/t friendsc-section incision complications.PAST MEDICAL HISTORYDiagnosis Date- Chlamydia 2013 and 2016- DepressionPAST SURGICAL HISTORYProcedure Laterality Date- DELIVERY ONLY 04/12/2017- PAST SURGICAL HISTORY OF oral (gum) surgeryFAMILY HISTORYProblem Relation Age of Onset- Allergies Mother- brain tumor benign [OTHER] Father- Depression, anxiety , panic attacks [OTHER] Father- Hypertension Maternal Grandmother- Lipids Maternal Grandmother- Depression [OTHER] Maternal Grandmother- Asthma Maternal Grandfather- COPD Maternal GrandfatherSocial History Marital status: Single Spouse name: Years of education: 12 Number of children: 0Occupational 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 History Main Topics Smoking status: Never Smoker Smokeless status: Never Used Alcohol use : No Drug use: No Sexual activity: Yes Partners with: Male control/protection: PillOther Topics ConcernMilitary Service NoSleep Concern YesStress Concern YesSpecial Diet NoExercise NoSeat Belt No Comment:now does since accidentSelf-Exams NoSocial History Narrative Lives with mom and step dad, 2 brothers and cousin No petsCurrent Outpatient Prescriptions:FLUoxetine (PROZAC) 20 mg capsule Take 1 capsule by mouth once daily.MEDICATION, NON- DATABASE Antibiotic for bladder infectionfamotidine (PEPCID) 20 mg tablet Take 1 tablet by mouth twice daily asneeded.cyclobenzaprine (FLEXERIL) 5 mg tablet Take 1 tablet by mouth three timesdaily as needed.PNV/IRON,CARB/OM-3/FA/FAT 1 (PRE-JUSTINA MULTIVITAMINS/MINERALS ORAL) Take bymouth.No current facility-administered medications for this visit.Allergies As of Date: 04/21/2017(No Known Allergies) Fully Assessed 04/19/2017REVIEW OF SYSTEMSExpanded ROS: GENERAL: Weight lossAllergies and current medication updated:YesEXAM: There were no vitals taken for this visit.GENERAL: pleasant, female in no apparent distressABDOMEN: soft, non-tender and no massesINCISION: dry AND intact, scant serosanguinous discharge from incisionASSESSMENT AND PLAN:21yo female with incision concernsPatient reassured re healthy incision, no evidence infection or openingF/u next week or PRToo White MD HOSP Observed: 04/21/2017 Status: COMPLETED Source: [place] 4:00 PM [facility] REPOSITORY Office Visit (WOOB) -------CEDRIC HARMAN ([id number]) 1995 FDate Time Provider Ciqrwptzxn62/5/17 4:00 PM BUSHRA WHITE During your visit today, we recorded the following information about you: Temperature Blood pressure Weight 99.4 degrees 126/90 103.8 kgBushra White MD 04/21/2017 4:54 PM SignedNidiadorcas Harman is a 21 year old female who presents for incision drainage.HPI: Patient reports some red fluid from her incision ANDamp; thinks a differentspot is opening. Depression is stable. States she is worried d/t friendsc-section incision complications.PAST MEDICAL HISTORYDiagnosis Date - Chlamydia 2013 and 2017- DepressionPAST SURGICAL HISTORYProcedure Laterality Date- DELIVERY ONLY 04/12/2017- PAST SURGICAL HISTORY OF oral (gum) surgeryFAMILY HISTORYProblem Relation Age of Onset- Allergies Mother- brain tumor benign [OTHER] Father- Depression, anxiety , panic attacks [OTHER] Father- Hypertension Maternal Grandmother- Lipids Maternal Grandmother- Depression [ OTHER] Maternal Grandmother- Asthma Maternal Grandfather- COPD Maternal GrandfatherSocial History Marital status: Single Spouse name: Years of education: 12 Number of children: 0Occupational 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ocial History Main Topics Smoking status: Never Smoker Smokeless status : Never Used Alcohol use: No Drug use: No Sexual activity: Yes Partners with: Male control/protection: PillOther Topics ConcernMilitary Service NoSleep Concern YesStress Concern YesSpecial Diet NoExercise NoSeat Belt No Comment:now does since accidentSelf-Exams NoSocial History Narrative Lives with mom and step dad, 2 brothers and cousin No petsCurrent Outpatient Prescriptions:FLUoxetine (PROZAC) 20 mg capsule Take 1 capsule by mouth once daily.MEDICATION, NON-DATABASE Antibiotic for bladder infectionfamotidine (PEPCID) 20 mg tablet Take 1 tablet by mouth twice daily as needed.cyclobenzaprine (FLEXERIL) 5 mg tablet Take 1 tablet by mouth three times dailyas needed.PNV/ IRON,CARB/OM-3/FA/FAT 1 (PRE-JUSTINA MULTIVITAMINS/MINERALS ORAL) Take bymouth.No current facility- administered medications for this visit.Allergies As of Date: 04/21/2017(No Known Allergies)Fully Assessed 04/19/2017REVIEW OF SYSTEMSExpanded ROS: GENERAL: Weight lossAllergies and current medication updated:YesEXAM: There were no vitals taken for this visit.GENERAL: pleasant, female in no apparent distressABDOMEN: soft, non-tender and no massesINCISION: dry ANDamp; intact, scant serosanguinous discharge from incisionASSESSMENT AND PLAN:21yo female with incision concernsPatient reassured re healthy incision, no evidence infection or openingF/u next week or PRJeni Bedolla Provider: BUSHRA WHITE [[id number]]Allergies As of Date: 04/21/2017(No Known Allergies)Date Reviewed: 04/21Reviewed by: Inna Feng Ma - Fully AssessedReason for Visit: incision check [Other] Primary Visit Diagnosis:Visit for wound check [Z51.89]Prescriptions as of 04/21/2017 Sig : IBUPROFEN 600 MG TABLET Take 600 mg by mouth every 6 * STOOL SOFTENER ORAL Take by mouth. IRON ORAL Take by mouth. FLUOXETINE 20 MG CAPSULE Take 1 capsule by mouth once * MEDICATION, NON-DATABASE Antibiotic for bladder infect* FAMOTIDINE 20 MG TABLET Take 1 tablet by mouth twice * CYCLOBENZAPRINE 5 MG TABLET Take 1 tablet by mouth three * PRE-JUSTINA MULTIVITAMINS/MINERAL* Take by mouth.Problem List As Of Date 04/21/2017 Noted Resolved control counseling [Z30.09] INVALID FOR*09/28/2016 Sore throat [J02.9] INVALID FOR* More... Odynophagia [R13.10] INVALID FOR* More... Spotting in [O26.859] INVALID FOR*09/28/2016 More... History of depression [Z86.59] INVALID FOR* More... Family history of defects [Z82.79] INVALID FOR* More... Obesity in [O99.210] INVALID FOR* More... Supervision of high risk due to socia*INVALID FOR* More... Chlamydia infection affecting [O98.31*INVALID FOR* More... Status: Closed by BUSHRA WHITE MD on 04/21/17 PROGRESS Observed: 04/19/2017 Status: COMPLETED Source: [place]ON[place] 4:10 PM [facility] REPOSIT[facility] HNO ID: [id number]: Bushra WhiteSertesse: (none) Author Type: PhysicianType: Progress NotesFiled: 04/19/2017 5:03 PMNote Text:Cedric Harman is a 21 year old female who presents for depression ANDincision check.HPI: Patient is depressed AND wants to increase her prozac. Denies SI/HI ANDloves her baby girl. She is concerned about incision drainage.PAST MEDICAL HISTORYDiagnosis Date- Chlamydia 2013 and 2016- DepressionPAST SURGICAL HISTORYProcedure Laterality Date- DELIVERY ONLY 04/12/2017- PAST SURGICAL HISTORY OF oral (gum) surgeryFAMILY HISTORYProblem Relation Age of Onset- Allergies Mother- brain tumor benign [ OTHER] Father- Depression, anxiety , panic attacks [OTHER] Father- Hypertension Maternal Grandmother- Lipids Maternal Grandmother- Depression [OTHER] Maternal Grandmother- Asthma Maternal Grandfather- COPD Maternal GrandfatherSocial History Marital status: Single Spouse name: Years of education: 12 Number of children: 0Occupational 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ocial History Main Topics Smoking status: Never Smoker Smokeless status: Never Used Alcohol use: No Drug use: No Sexual activity: Yes Partners with: Male control/protection: PillOther Topics ConcernMilitary Service NoSleep Concern YesStress Concern YesSpecial Diet NoExercise NoSeat Belt No Comment:now does since accidentSelf-Exams NoSocial History Narrative Lives with mom and step dad, 2 brothers and cousin No petsCurrent Outpatient Prescriptions:MEDICATION, NON-DATABASE Antibiotic for bladder infectionfamotidine (PEPCID) 20 mg tablet Take 1 tablet by mouth twice daily asneeded.cyclobenzaprine (FLEXERIL) 5 mg tablet Take 1 tablet by mouth three timesdaily as needed.sertraline (ZOLOFT) 50 mg tablet Take 1 tablet by mouth once daily.PNV/IRON,CARB/OM-3/FA/ FAT 1 (PRE-JUSTINA MULTIVITAMINS/MINERALS ORAL) Take bymouth.No current facility- administered medications for this visit.Allergies As of Date: 04/19/2017(No Known Allergies) Fully Assessed 04/11/2017REVIEW OF SYSTEMSExpanded ROS: GENERAL: No weight loss, malaise or feversAllergies and current medication updated:YesEXAM: There were no vitals taken for this visit.GENERAL: pleasant, female in no apparent distressCHEST : Normal inspiratory effortABDOMEN: soft, non-tender and no massesINCISION: well healing, no erythema or dischargeASSESSMENT AND PLAN:21yo female with PP depression AND incision concernsPP depression - increase prozac to 20mg, call with any SI/HIPatient reassured re healthy incisionF/u next week as scheduled or PRToo White MD CNOV Observed: 04/19/2017 Status: COMPLETED Source: [place] 4:10 PM [facility] REPOSITORY Office Visit (WOOB) -------CEDRIC HARMAN ([id number]) 1995 [facility] Time Provider Masacqgfya23/3/17 4:10 PM BUSHRA WHITE During your visit today, we recorded the following information about you: Blood pressure 132/ 80Bushra White MD 04/19/2017 5:03 PM Nidia Mejia Ghazal is a 21 year old female who presents for depression ANDamp;incision check.HPI: Patient is depressed ANDamp; wants to increase her prozac. Denies SI/HIANDamp; loves her baby girl. She is concerned about incision drainage.PAST MEDICAL HISTORYDiagnosis Date- Chlamydia 2013 and 2016- DepressionPAST SURGICAL HISTORYProcedure Laterality Date- DELIVERY ONLY 04/12/2017- PAST SURGICAL HISTORY OF oral (gum) surgeryFAMILY HISTORYProblem Relation Age of Onset- Allergies Mother- brain tumor benign [OTHER] Father- Depression, anxiety , panic attacks [OTHER] Father- Hypertension Maternal Grandmother- Lipids Maternal Grandmother- Depression [OTHER] Maternal Grandmother- Asthma Maternal Grandfather- COPD Maternal GrandfatherSocial History Marital status: Single Spouse name: Years of education: 12 Number of children: 0Occupational 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 History Main Topics Smoking status: Never Smoker Smokeless status : Never Used Alcohol use: No Drug use: No Sexual activity: Yes Partners with: Male control/protection: PillOther Topics ConcernMilitary Service NoSleep Concern YesStress Concern YesSpecial Diet NoExercise NoSeat Belt No Comment:now does since accidentSelf-Exams NoSocial History Narrative Lives with mom and step dad, 2 brothers and cousin No petsCurrent Outpatient Prescriptions:MEDICATION, NON-DATABASE Antibiotic for bladder infectionfamotidine (PEPCID) 20 mg tablet Take 1 tablet by mouth twice daily as needed.cyclobenzaprine (FLEXERIL) 5 mg tablet Take 1 tablet by mouth three times dailyas needed.sertraline (ZOLOFT) 50 mg tablet Take 1 tablet by mouth once daily.PNV/IRON,CARB/OM-3/FA/FAT 1 (PRE-JUSTINA MULTIVITAMINS/MINERALS ORAL) Take bymouth.No current facility-administered medications for this visit.Allergies As of Date: 2016(No Known Allergies)Fully Assessed 04/11/2017REVIEW OF SYSTEMSExpanded ROS: GENERAL: No weight loss, malaise or feversAllergies and current medication updated:YesEXAM: There were no vitals taken for this visit.GENERAL: pleasant, female in no apparent distressCHEST: Normal inspiratory effortABDOMEN: soft, non-tender and no massesINCISION: well healing, no erythema or dischargeASSESSMENT AND PLAN:21yo female with PP depression ANDamp; incision concernsPP depression - increase prozac to 20mg, call with any SI/HIPatient reassured re healthy incisionF/u next week as scheduled or Jeni Miller Provider: ALEXANDRE WATTERS [[id number]] Allergies As of Date: 04/19/2017(No Known Allergies)Date Reviewed: 04/19/2017Reviewed by: Lisa Yarbrough Ma - Fully AssessedPrimary Visit Diagnosis: depression [F53] Other Visit Diagnosis:Visit for wound check [Z51.89]Order(s):FLUoxetine (PROZAC) 20 mg capsuleTake 1 capsule by mouth once daily.Disp: 30 capsuleRfl: 1Prescriptions as of 04/19/2017 Sig: FLUOXETINE 20 MG CAPSULE Take 1 capsule by mouth once * MEDICATION, NON-DATABASE Antibiotic for bladder infect* FAMOTIDINE 20 MG TABLET Take 1 tablet by mouth twice * CYCLOBENZAPRINE 5 MG TABLET Take 1 tablet by mouth three * PRE-JUSTINA MULTIVITAMINS/MINERAL* Take by mouth.Problem List As Of Date 04/19/2017 Noted Resolved control counseling [ Z30.09] INVALID FOR*09/28/2016 Sore throat [J02.9] INVALID FOR*09/28/2016 More... Odynophagia [R13.10] INVALID FOR* More... Spotting in [O26.859] INVALID FOR*09/28/2016 More... History of depression [Z86.59] INVALID FOR* More... Family history of defects [ Z82.79] INVALID FOR* More... Obesity in [O99.210] INVALID FOR* More... Supervision of high risk due to socia*INVALID FOR* More... Chlamydia infection affecting [O98.31*INVALID FOR* More...Prescriptions ordered this encounter Disp Refills Start End FLUOXETINE 20 MG CAPSULE 30 c* 1 04/19/2017 Route: ORAL Sig: Take 1 capsule by mouth once daily.Medications Discontinued During This Encounter sertraline ( ZOLOFT) 50 mg tablet 30 t* 12 10/06/2016 04/19/2017 Route: ORAL Sig: Take 1 tablet by mouth once daily. Disc: Patient chooses alternative therapyEncounter Number: [id number] Status:Closed by BUSHRA WHITE MD on 04/19/17 DISCHARGE SUMMARY Observed: 04/15/2017 Status: F Source: [place] 8:49 AM [facility] [id number] [place] [address]Svjznyevd Amrwkuk22/29/17 0741MR#: [id number] Acct: [id number]: CEDRIC HARMAN Rep #: [id number]: 1995 21 From: Alexandre Watters MDPCP: Kishore Medina MD Status: ADM IN YLocation: WP [id number] Date and DiagnosisDate of Admission: 04/11/17Date of Discharge: 04/15/17Hospital Course and TreatmentOperations: - - Primary low transverse c/section on 04/12/17Procedures: NoneSummary of Care Provided:The patient is a 21 year old nulliparous female who presented with premature rupture ofmembranes. She underwent cervical ripening with cytotec then pitocin. However despiteattempts at induction she never entered active labor and was 5 cm/80/-3 station w/ headnot well engaged after 24 hrs. At that point a primary c/s was performed without difficulty.She tolerated the acute blood loss anemia from the surgery well and stabilized and on POD#3 shewas d/gerson home w/ routine instructions and prescriptions.[]Discharge Diet: No RestrictionsDischarge Activity: Return to Normal Activity, May Not Drive - for 2 weeks, May not drive whiletaking narcotic pain medications., May Shower, May Take a Tub Bath - in 7 days.May resume sexual activity in: 4-6 weeksAdditional Activity Instructions:: Nothing in the vagina for 4-6 weeks. You may return towork/school in 6 weeks.Call your doctor if your incision/area has: Continuous Slow Oozing, Sudden Increased Bleeding,Increased Pain/ Swelling, Increased Redness, Foul Smelling DischargeCall your doctor if you observe: Fever of 101 or Higher, Using more than one pad per hour - for2 hoursSuture Line Care: Avoid Pulling/Pushing, Avoid Pinching/ BendingCleanse incision/area with: Keep Dressing Clean AND DryHome Medications:Medications to take at DischargePrenatal Vits [Prenatabs FA ] 1 tablet PO DAILY Famotidine [Pepcid] 20 mg PO PRN PRN 03/04/17cetaminophen [Tylenol] 650 mg PO 4X/DAY PRN PRN 04/05/17Docusate Sodium [Colace] 100 mg PO BID PRN PRN #60 capsule Ferrous Sulfate 325 mg PO BIDCM #60 tablet 04/15/17Fluoxetine [Prozac] 10 mg PO DAILY # 30 capsule 04/15/17Ibuprofen [Motrin] 600 mg PO Q6H PRN #60 tablet Oxycodone HCl/Acetaminophen [Percocet 5-325] 1 - 2 tablet PO Q4H PRN PRN #40 tablet 04/15/17Following Prescrptions Were Given to Patient:Oxycodone HCl/ Acetaminophen [Percocet 5-325] 1 - 2 tablet PO Q4H PRN PRN #40 tabletPRN Reason: Moderate- Severe painDocusate Sodium [Colace] 100 mg PO BID PRN PRN #60 capsulePRN Reason: ConstipationFluoxetine [Prozac] 10 mg PO DAILY #30 capsuleIbuprofen [Motrin] 600 mg PO Q6H PRN #60 tabletPRN Reason: PainFerrous Sulfate 325 mg PO BIDCM #60 tabletPrimary Care Physician:Kishore Medina MD [Primary Care Provider] -Please Follow Up With: Alexandre Watters - Call to make an appointment for an incision check in1-2 [phone]: You will need a post check in 6 weeks.Meaningful Use InfoMeaningful Use Diagnoses (Choose all that apply): None [id number]/29/ 17 0849 <Electronically signed by Alexandre Watters MD>Date Alexandre Watters [facility] Signature (if applicable): Date CC: Kishore Medina MD; Alexandre Watters MD Signed DISCHARGE INSTRUCTION Observed: 04/15/2017 Status: F Source: [place] 7:34 AM [facility] [id number] [address]Pbfttzuttzef for Home/Discharge Ggryjiixtbak94/29/17 0734MR #: [id number] Acct: [id number]: CEDRIC HARMAN Rep #: [id number]: 1995 21 From: Alexandre Watters MDPCP: Kishore Medina MD Status: ADM INDischarge Diet: No RestrictionsDischarge Activity: Return to Normal Activity, May Not Drive - for 2 weeks, May not drive whiletaking narcotic pain medications., May Shower, May Take a Tub Bath - in 7 days.May resume sexual activity in: 4-6 weeksLifting Restrictions: 20 poundsAdditional Activity Instructions:: Nothing in the vagina for 4-6 weeks. You may return towork/school in 6 weeks.Call your doctor if your incision/area has: Continuous Slow Oozing, Sudden Increased Bleeding,Increased Pain/ Swelling, Increased Redness, Foul Smelling DischargeCall your doctor if you observe: Fever of 101 or Higher, Using more than one pad per hour - for2 hoursSuture Line Care: Avoid Pulling/Pushing, Avoid Pinching/BendingCleanse incision/area with: Keep Dressing Clean AND DryAdditional Instructions:If you experience any of the following, contact your healthcare provider.* Bleeding that soaks a pad every hour for 2 hours* Fever 100.4 or higher* Unrelieved incision or abdominal pain* Swelling, redness , discharge or bleeding from your incision or episiotomy site* Your incision begins to separate* Problems urinating (including inability to urinate or burning while urinating).* Visual changes* Severe headache* Flu-like symptoms* Pain or redness in one of both of your breasts* Pain, warmth, tenderness or swelling in your legs, especially the calf area* Frequent nausea and vomiting* Symptoms of depression or anxietyIf you experience any of the following, call 911 or go to the nearest Emergency Room.* Chest pain* Problems breathing* Seizure activity* Partial or complete paralysis of a body part, slurred speech, weakness or drooping of theface, or a sudden inability to walk or hold your balanceAllergies/Adverse Reactions:AllergiesNo Known Allergies Allergy (Verified 04/11/17 20:11) Medications to take at DischargePrenatal Vits [Prenatabs FA ] 1 tablet PO DAILY 09/22/16Famotidine [Pepcid] 20 mg PO PRN PRN 03/04/17cetaminophen [Tylenol] 650 mg PO 4X/DAY PRN PRN 04/05/17Ibuprofen [Motrin] 600 mg PO Q6H PRN #60 tablet 04/15/17Oxycodone HCl/Acetaminophen [Percocet 5-325] 1 - 2 tablet PO Q4H PRN PRN #40 tablet 04/15/17The following prescriptions were given:Oxycodone HCl/ Acetaminophen [Percocet 5-325] 1 - 2 tablet PO Q4H PRN PRN #40 tabletPRN Reason: Moderate- Severe painIbuprofen [Motrin] 600 mg PO Q6H PRN #60 tabletPRN Reason: PainFollow-Up: Call to make an appointment with your doctor for an incision check in 1-2 weeks. You will alsoneed a 6 week post- follow up appointment.Please Follow Up With: Alexandre Watters - Call to make an appointment for an incision check in1-2 [phone]: You will need a post check in 6 weeks.Primary Care Physician:Kishore Medina MD [Primary Care Provider] -04/15/17 0734 <Electronically signed by Alexandre Watters MD>Date Alexandre Watters [facility]: Kishore Medina MD PROGRESS Observed: 04/14/2017 Status: COMPLETED Source: JONES 3:41 PM [facility] REPOSITORY HNO ID: [id number]: Sol Barnes LPNService: (none)Author Type: (none)Type: Progress NotesFiled: 04/14/2017 3:42 PMNote Text :Pt delivered via C/S at [facility] on 04/12/[address] Watters. See OB Outcomenote. Sol Barnes LPN CBC-COMPLETE BLOOD CNT Collected: 04/14/2017 Status: F Source: CHRISTEL NO DIFF 3:25 PM [facility] REPOSITORY TYPE CODE TESTS RESULT OUT OF RANGE REFERENCE UNITS LAB L100.1000 High 4.4-11.0 K/mm3 WBC 12.6 LAB L100.1200 Low 4.2-5.4 M/mm3 RBC 3.12 LAB L100.1300 Low 12.0-15.0 g/dl HGB 8.5 LAB L100.1400 Low 37-47 % HCT 27.4 LAB L100.1500 Normal 81-99 fL MCV 87.8 LAB L100.1600 Normal 27.0-32.0 pg MCH 27.2 LAB L100.1700 Low 32-36 g/gl MCHC 31.0 LAB L100.1810 High 11.6-14.6 % RDW 16.2 CV LAB L100.1820 High 35.1-43.9 fl RDW 51.5 SD LAB L100.1900 Normal 150-450 K/mm3 PLT 164 LAB L100.2000 Normal 6.2-12.0 fl MPV 10.9 Performed By: #### L100.0500 ####[facility] [address] [place], [address] HOSP Observed: 04/14/2017 Status: COMPLETED Source: JONES 12:00 AM [facility] REPOSITORY Patient Update (WOOB) -------CEDRIC HARMAN ([id number]) 1995 FDate Time Provider Department04/14/17 ALEXANDRE WATTERS During your visit today, we recorded the following information about you:Sol Barnes LPN 04/14/2017 3 :42 PM SignedPt delivered via C/S at [facility] on 04/12/[address] Watters. See OB Outcome note.Sol Barnes LPNAllergies As of Date: 04/14/2017(No Known Allergies)Date Reviewed: 04/11/2017Reviewed by : Katelynn Horta Ma - Fully AssessedPrescriptions as of 04/14/2017 Sig: MEDICATION, NON- DATABASE Antibiotic for bladder infect* FAMOTIDINE 20 MG TABLET Take 1 tablet by mouth twice * CYCLOBENZAPRINE 5 MG TABLET Take 1 tablet by mouth three * SERTRALINE 50 MG TABLET Take 1 tablet by mouth once d* PRE-JUSTINA MULTIVITAMINS/MINERAL* Take by mouth.Problem List As Of Date 04/14/2017 Noted Resolved control counseling [ Z30.09] INVALID FOR*09/28/2016 Sore throat [J02.9] INVALID FOR*09/28/2016 More... Odynophagia [R13.10] INVALID FOR* More... Spotting in [O26.859] INVALID FOR*09/28/2016 More... History of depression [Z86.59] INVALID FOR* More... Family history of defects [ Z82.79] INVALID FOR* More... Obesity in [O99.210] INVALID FOR* More... Supervision of high risk due to socia*INVALID FOR* More... Chlamydia infection affecting [O98.31*INVALID FOR* More... Status: Closed by SOL BARNES LPN on 04/14/17 CBC-COMPLETE BLOOD CNT Collected: 04/13/2017 Status: F Source: CHRISTEL NO DIFF 5:50 AM [facility] REPOSITORY Order Comment: Comments: Day #1Reason for Laboratory Test TYPE CODE TESTS RESULT OUT OF RANGE REFERENCE UNITS LAB L100.1000 Normal 4.4-11.0 K/mm3 WBC 10.9 LAB L100.1200 Low 4.2-5.4 M/mm3 RBC 3.16 LAB L100.1300 Low 12.0-15.0 g/dl HGB 8.7 LAB L100.1400 Low 37-47 % HCT 27.7 LAB L100.1500 Normal 81-99 fL MCV 87.7 LAB L100.1600 Normal 27.0-32.0 pg MCH 27.5 LAB L100.1700 Low 32-36 g/gl MCHC 31.4 LAB L100.1810 High 11.6-14.6 % RDW 15.9 CV LAB L100.1820 High 35.1-43.9 fl RDW 50.6 SD LAB L100.1900 Low 150-450 K/mm3 PLT 132 LAB L100.2000 Normal 6.2-12.0 fl MPV 11.5 Performed By: #### L100.0500 ####[facility] [address] [place], [address] OPERATIVE REPORT Observed: 04/12/2017 Status: F Source: [place] 8:21 PM [facility] REPOSITORY [facility] [address] [place], [place] [address]Wmdaffbyx Cxoihf98/26/17 2014MR#: [id number] Acct: [id number]: CEDRIC HARMAN Rep #: [id number]: 1995 21 From: Alexandre Watters MDPCP: Kishore Medina MD Status: ADM IN YLocation: [id number] DeliveryC- Section Classification: ASAPFinal ANDREW: 04/12/17Final ANDREW Source: US <20 weeksGestational age: 40 Weeks and 0 DaysDate of Procedure: 04/12/17Pre-op Diagnosis: - - arrest of dilation, failed inductionPost-Op Diagnosis: - - sameSurgery/Procedure Performed: Primary low transverse SectionAnesthesiologist: Eugenio Zaidi of Anesthesia: EpiduralOR Educational Speech Language Clinician: Spencer Crawford AIsussyications:arrest of dilation, failed inductionDescription of Procedure:Patient taken to OR hwere she was prepped and draped in normal sterile fashion in a dorsalsuppine position with a leftward tilt. After ensuring adequacy of anesthesia the PFannensteilskin incision was made and carried through to the underlying fascia w/ a scalpel. The fasciawas incised in the midline and carried laterally with the Nichols scissors. The rectus muscleswere in the midline and the peritoneum was entered sharply. The uterine incision wasmade with the scalpel and extended laterally w/ blunt dissection. The fetus was vertex and thehead was brought to the incision in the flexed position and delivered w/ fundal pressure, inthe standard fashion. The remainder of the delivered w/ gentle traction and fundalpressure in the standard fashion without difficulty. The mouth and nares were bulb suctioned,the was vigorous. The was stimulated, delayed cord clamping was performed thenthe infant was handed off.The placenta was delivered w/ gentle traction and fundal massage and the uterus wasexteriorized and cleared of all clots and debris. The uterine incision was closed with 1vicryl suture in a running locked fashion. A second layer of the same suture was used toimbricate the first layer and obtain hemostasis. The uterus was returned to the peritonealcavity which was cleared of all clots and debris. Several figure of 8 sutures were needed inthe midline to stop the bleeding from a sinus. The uterine incision was reexamined and foundto be hemostatic. Some Malissa was placed over the incision, pressure was held and the uteruswas hemostatic.The parietal peritoneum was closed with 3-0 vicryl suture in a running fashion. Any bleedingwas bovie cauterized. Malissa was placed over the rectus muscles and the fasia was closed with1 PDS suture in a running standard fashion.The subcutaneous tissue was examined, any bleeding bovie cauterized and Malissa was placed inthis layer. The subcutaneous tissue was reapproximated with 3-0 vicryl suture in 2 layers.The skin was closed with 4-0 vicryl suture by the [employer] WEB[employer] PORTAL DEVELOPER with me present in the labor anddelivery suite. I performed the remainder of the procedure w/ assistance.Findings- normal uterus/ tubes and ovaries, normal placenta with 3 vessel cord.Amniotic Membrane Rupture Type: SpontaneousAmniotic Fluid Description: Thick meconium - initially clear, thick MSF by deliveryPlacenta Disposition: [facility] PavilionSpecimen(s) sent to pathology: noneDrain: Laguerre to straight drainFluids Replaced: 1250 ccCord Entanglement: NoneFetal Cord Vessel Description: 3 VesselsEsitmated Blood Loss (ml): 900Infant Gender: FemaleApgar (1 minute): 8Apgar (5 minute): 9Delayed cord clamping: YesPre-op Antibiotic Given: Ancef 2 grams IV z9Fluiftobcdbrm: None- Admit VTE DocumentationVTE Present on Admission: NoVTE Mechan Device Prophylaxis: SCD'sVTE Pharm Prophylaxis ordered?: Yes04/12/172020 <Electronically signed by Alexandre Watters MD& gt;Date Alexandre Watters MDCC: Kishore Medina MD; Alexandre Watters MD Signed HISTORY AND PHYSICAL Observed: 04/11/2017 Status: F Source: [place]USTA EXAM 9:27 PM [facility] REPOSITORY [facility] [address] [place] [address]Qprckwj and Lndcdrjk22/25/172121MR#: [id number] Acct: [id number]: CEDRIC HARMAN Rep #: [id number]: 1995 21 From: Dana Palomares MDPCP: Kishore Medina MD Status: ADM IN YLocation: WP015- 1HistoryDate of Admission: 04/11/17Gestational age: 39.6History of this :21yo @ 39.6 wks, c/o SROM at 1920hrs, clear fluid. pt is dated by her LMP c/w firsttrimester ultrasound with EDC 04/12/17. Pt denies BUCKNER, blurry vision or epigastric pain.Pertinent Past Medical History:h/o Depression, h/o Chlamydia, ObesityAllergiesNo Known Allergies Allergy (Verified 04/11/17 20:11)Current MedicationsAcetaminophen ( Tylenol) 325 - 650 mg PO Q4H PRN PRNPRN Reason: PAIN OR FEVER >100.4FAl Hydroxide/Mg Hydroxide (Mylanta Ii) 15 - 30 ml PO Q4H PRN PRNPRN Reason: INDIGESTIONCitric Acid/Sodium Citrate (Bicitra) 30 ml PO UD PRNLactated Ringer's () 1,000 mls @ 50 mls/hr IV .Q20H SCHOxytocin/Sodium Chloride () 30 units in 500 mls @ 1 mls/hr IV .Q500H SCHPenicillin G Potassium 5 mu/ (Dextrose) 105 mls @ 150 mls/hr IV X1 ONEStop: 04/11/17 21:46Penicillin G Potassium/ (Dextrose 3 mu/ N/A) 50 mls @ 100 mls/hr IV Q4H SCHMisoprostol (Cytotec) 25 mcg PO Q4H SCHStop: 04/12/17 01:01Nalbuphine HCl (Nubain) 5 - 10 mg IV Q3H PRN PRNPRN Reason: PAIN (-04/26)Ondansetron HCl (Zofran) 4 mg IV Q8H PRN PRNPRN Reason: NAUSEAPromethazine HCl (Phenergan (Ll)) 6.25 - 12.5 mg IV Q4H PRN PRN; ProtocolPRN Reason: IF NAUSEA PERSISTSSodium Chloride () 5 - 15 ml IV UD SCHSmoking Status: Never smokerAlcohol: NoneDrug Use: noneNumber of Fetus(es): 1Review of SystemsEyes: Denies: Blurred visionHEENT: Denies: Head AchesCardiovascular: Denies: Chest PainGastrointestinal: Denies: Abdominal PainPhysical ExamVitals:FHR: 140's mod kyrie, + accels, no decels. Carrabelle: irregularGeneral: Alert, Oriented r7Garkwgi: Soft, Non Tender, GravidEstimated gestational size: Appropriate for gestational sizeFetal Presentation: CephalicCervix Dilation (cm): 1Station: -3Effacement (%): 75Assessment/Epxb31fq @ 39.6 wks, SROM at home1) Admit to L AND D, IOL with pitocin2) IFM placed- difficult to monitor fhr consistently3) PN labs reviewed, GBS + will treat with PCN when active labor ensues A+, HIV neg, HEP B neg,Rub imm, Syphilis negative4) Epidural if requested for pain04/11/172126 <Electronically signed by Dana Palomares MD&gt ;Date Dana Palomares [facility] [place] [facility] Signature (if applicable): Date CC: Dana Palomares MD; Kishore Medina MD Signed CBC-COMPLETE BLOOD CNT Collected: 04/11/2017 Status: F Source: CHRISTEL NO DIFF 9:05 PM [facility] REPOSITORY TYPE CODE TESTS RESULT OUT OF RANGE REFERENCE UNITS LAB L100.1000 High 4.4-11.0 K/mm3 WBC 12.3 LAB L100.1200 Low 4.2-5.4 M/mm3 RBC 4.13 LAB L100.1300 Low 12.0-15.0 g/dl HGB 11.2 LAB L100.1400 Low 37-47 % HCT 35.5 LAB L100.1500 Normal 81-99 fL MCV 86.0 LAB L100.1600 Normal 27.0-32.0 pg MCH 27.1 LAB L100.1700 Low 32-36 g/gl MCHC 31.5 LAB L100.1810 High 11.6-14.6 % RDW 15.4 CV LAB L100.1820 High 35.1-43.9 fl RDW 48.4 SD LAB L100.1900 Low 150-450 K/mm3 PLT 148 LAB L100.2000 Normal 6.2-12.0 fl MPV 11.9 Performed By: #### L100.0500 ####[facility] [address] [place], [place], [id number] TYPE AND SCREEN Collected: 04/11/2017 Status: F Source: CHRISTEL 9:05 PM [facility] REPOSITORY Order Comment: Reason for Type AND Screen/Red Cells: TYPE CODE TESTS RESULT OUT OF RANGE REFERENCE UNITS LAB B10.0800 Normal A BLOOD TYPE POSITIVE GEL Result Comment: A POSITIVE LAB B100.4000 Normal Antibody NEGATIVE Screen Result Comment: NEGATIVE Performed By: #### B101.7450 ####[facility] [address] [place], [address] (ROM) RUPTURE OF Collected: 04/11/2017 Status: F Source: [place] MEMBRANES 8:15 PM [facility] REPOSITORY Order Comment: REDRAW. PREVIOUS SPECIMEN REJECTED DUE TOQNS. 04/11/172016 TYPE CODE TESTS RESULT OUT OF REFERENCE UNITS RANGE LAB L205.1310 High Negative ROM POSITIVE Result Comment: Amniotic fluid present indicates rupture of Membranes.RESULTS CALLED TO [facility] 04/11/172045 Arlyn Yee.REPORT READ BACK BY SAME . Performed By: #### L205.1000 ####[facility] [address] [place], [address] CBC AND DIFFERENTIAL Collected: 04/11/2017 Status: F Source: JONES 12:48 PM [facility] REPOSITORY TYPE CODE TESTS RESULT OUT OF REFERENCE UNITS RANGE LAB WBC 3.70-11.00 k/uL WBC 10.33 LAB RBC 3.90-5.20 m/uL RBC 4.21 LAB HGB 11.5-15.5 g/dL Hemoglobin 11.5 LAB HCT 36.0-46.0 % Hematocrit 38.1 LAB MCV 80.0-100.0 fL MCV 90.5 LAB MCH 26.0-34.0 pG MCH 27.3 LAB MCHC Low 30.5-36.0 g/dL MCHC 30.2 LAB RDWCV High 11.5-15.0 % RDW-CV 16.0 LAB PLTCT 150-400 k/uL Platelet 158 Count LAB MPV 9.0-12.7 fL MPV 12.6 LAB ANEUT % Neut% 79.5 LAB AANEUT High 1.45-7.50 k/uL Abs Neut 8.21 LAB ALYMP % Lymph% 14.8 LAB AALYMP 1.00-4.00 k/uL Abs Lymph 1.53 LAB AMONO % Brewster% 4.9 LAB AAMONO 0.00-0.86 k/uL Abs Brewster 0.51 LAB AEOS % Eosin% 0.5 LAB AAEOS 0.00-0.45 k/uL Abs Eosin 0.05 LAB ABASO % Baso% 0.3 LAB AABASO 0.00-0.10 k/uL Abs Baso 0.03 LAB AUNRBC 0 /100 WBC NRBCs 0.0 LAB ABNRBC 0.00 k/uL Absolute nRBC 0.00 LAB DTYP DTYPE Auto Diff Performed By: #### CBCDIF, ALT, AST, BUN, CRET1, URIC ####[address] [phone] ALT Collected: 04/11/2017 Status: F Source: JONES 12:48 PM [facility] REPOSITORY TYPE CODE TESTS RESULT OUT OF RANGE REFERENCE UNITS LAB ALT 7-38 U/L ALT 12 Performed By: #### CBCDIF, ALT, AST, BUN, CRET1, URIC ####[address] [phone] AST Collected: 04/11/2017 Status: F Source: JONES 12:48 PM [facility] REPOSITORY TYPE CODE TESTS RESULT OUT OF RANGE REFERENCE UNITS LAB AST 13-35 U/L AST 16 Performed By: #### CBCDIF, ALT, AST, BUN, CRET1, URIC ####[address] [phone] BUN Collected: 04/11/2017 Status: F Source: JONES 12:48 PM [facility] REPOSITORY TYPE CODE TESTS RESULT OUT OF RANGE REFERENCE UNITS LAB BUN Low 7-21 mg/dL BUN 5 Performed By: #### CBCDIF, ALT, AST, BUN, CRET1, URIC ####[address] [phone] CREATININE Collected: 04/11/2017 Status: F Source: JONES 12:48 [facility] REPOSITORY TYPE CODE TESTS RESULT OUT OF REFERENCE UNITS RANGE LAB CRET Low 0.58-0.96 mg/dL Creatinine 0.46 LAB GFRAA eGFR- Amer. >60 LAB GFRNAA . eGFR-All Other Races >60 Result Comment: eGFR (Estimated GFR) Units of measure: mL/min/1.73 meters squaredeGFR is derived from the reexpressed MDRD Study equation using the following parameters: serum creatinine, age, gender and race. The creatinine assay has been calibrated to be traceable to IDMS.An eGFR <60 mL/min/1.73m2 for >3 months is consistent with chronic kidney disease. Refer to KDOQI guidelines for clinical interpretation.In patients with unstable renal function, e.g. those with acute kidney injury, the eGFR may not accurately reflect actual GFR. Performed By: #### CBCDIF, ALT, AST, BUN, CRET1, URIC ####[address] [place], [place] [phone] URIC ACID Collected: 04/11/2017 Status: F Source: JONES 12:48 PM [facility] REPOSITORY TYPE CODE TESTS RESULT OUT OF RANGE REFERENCE UNITS LAB URIC 2.5-6.6 mg/dL Uric 4.1 Acid Performed By: #### CBCDIF, ALT, AST, BUN, CRET1, URIC ####[address] [place], [place] [phone] PROTEIN/CREATININE RATIO Collected: Status: F Source: JONES 04/11/2017 12:48 PM [facility] REPOSITORY TYPE CODE TESTS RESULT OUT OF REFERENCE UNITS RANGE LAB UTPR High 0-20 mg/dL Protein 68 Urine Random LAB UCRR 20-300 mg/dL 216.6 Creatinine,Ur ine,Ran LAB PCRAT High <0.2 0.3 Protein/Creat inine Ratio Performed By: #### PRATIO ####[address] [place], [place] [phone] HOSP Observed: 04/11/2017 Status: COMPLETED Source: JONES 11:15 AM [facility] REPOSITORY Routine Office Visit (WOOB) -------CEDRIC HARMAN ([id number]) 1995 FDate Time Provider Department04/11/17 11:15 AM VAISHALI ROSALES (ZITA) WOOB During your visit today, we recorded the following information about you: Blood pressure Weight 124/70 113.8 kgKatelynn Horta Ma 04/11/2017 11:17 AM SignedSEQUENTIAL SCREENINGSThe [facility] offers [facility] screenings for women who are interestedin screenings for chromosomal abnormalities and certain defects during apregnancy. The sequential screen combines ultrasound and blood tests todetermine the risk of chromosomal abnormalities, including Down's Syndrome( Trisomy 21) and Trisomy 18, as well as open neural tube defects includingspina bifida. Ultrasound examination is performed between 11 weeks and 13 weeksgestational age. Blood tests are drawn after the ultrasound and again later inthe between 15 and 21 weeks gestational age. Please let yourphysician know if you are interested in this testing. It will require anappointment with our medical imaging technician. This is not an ultrasound performedby a physician in our office during a routine visit.SIGNS AND SYMPTOMS OF LABOR1. Contractions every 10 minutes or more often2. Clear, pink, or brownish fluid (water) leaking from vagina3. Feeling that baby is pushing down, pressure4. Low, dull backache5. Cramps that feel like a period6. Cramps with or without diarrheaIf you notice any of the above symptoms, contact our office at [phone] andask to speak with a nurse.After hours, you can call doctors registry at [phone] OR call [facility] at [phone] and ask to have the doctor communications tech paged.If you consider this an emergency, dial 9-1-1 or go to your nearest emergencydepartment.NEED HELP? Are you dealing with a violent or abusive relationship? Are you avictim of rape or sexual assult? Call [facility] ([place]) 24 hourCrisis Hotline: 778.142.5589 or . MANUALYour Guide to a Healthy manual is now on-line. [email or web address]/ HealthyPregnancyGuide to download your free copyReferring Provider: SELF [200]Allergies As of Date: (No Known Allergies)Date Reviewed: 04/11/2017Reviewed by: Katelynn Horta Ma - Fully AssessedReason for Visit: Care [86]Primary Visit Diagnosis:Supervision of high risk due to social problems in first trimester [O09.71] Other Visit Diagnoses:39 weeks gestation of [Z3A.39] Persistent proteinuria [R80.1]Order(s):URINE OB DIP B/O [[id number]] Order #: [id number] CREATININE BLD [SQCRET] Order #: [id number] FUTURE ALT/SGPT [SQALT] Order #: [id number] FUTURE AST/SGOT BLD [SQAST] Order #: [id number] FUTURE BUN BLOOD [SQBUN] Order #: [id number] FUTURE CBC + DIFF [SQCBCDIF] Order #: [id number] FUTURE URIC ACID BLOOD [SQURIC] Order #: [id number] FUTURE PROTEIN CREATININE RATIO [SQPRATIO] Order #: [id number] FUTURE BIOPHYSICAL PROFILE [facility] [ [id number]] Order #: [id number]: 1Prescriptions as of 04/11/2017 Sig: FAMOTIDINE 20 MG TABLET Take 1 tablet by mouth twice * SERTRALINE 50 MG TABLET Take 1 tablet by mouth once d* PRE-JUSTINA MULTIVITAMINS/MINERAL* Take by mouth. MEDICATION, NON-DATABASE Antibiotic for bladder infect* CEPHALEXIN 500 MG CAPSULE Take 1 capsule by mouth four * Patient not taking: Reported on 04/08/2017 CYCLOBENZAPRINE 5 MG TABLET Take 1 tablet by mouth three *Medication notes this encounter MEDICATION, NON-DATABASE >> Katelynn Horta Ma 04/11/2017 11:18 AM >> KATELYNN HORTA MA Mon Apr 11, 2017 11:18 AM Finished.Problem List As Of Date 04/11/2017 Noted Resolved control counseling [Z30.09] INVALID FOR*09/28/2016 Sore throat [J02.9] INVALID FOR* More... Odynophagia [R13.10] INVALID FOR* More... Spotting in [O26.859] INVALID FOR*09/28/2016 More... History of depression [Z86.59] INVALID FOR* More... Family history of defects [Z82.79] INVALID FOR* More... Obesity in [O99.210] INVALID FOR* More... Supervision of high risk due to socia*INVALID FOR* More... Chlamydia infection affecting [O98.31*INVALID FOR* More... Other instructions from your clinician: SEQUENTIAL SCREENINGS [facility] offers sequential screenings for women who are interested in screenings for chromosomal abnormalities and certain defects during a . The sequential screen combines ultrasound and blood tests to determine the risk of chromosomal abnormalities, including Down's Syndrome (Trisomy 21) and Trisomy 18, as well as open neural tube defects including spina bifida. Ultrasound examination is performed between 11 weeks and 13 weeks gestational age. Blood tests are drawn after the ultrasound and again later in the between 15 and 21 weeks gestational age. Please let your physician know if you are interested in this testing. It will require an appointment with our medical imaging technician. This is not an ultrasound performed by a physician in our office during a routine visit. SIGNS AND SYMPTOMS OF LABOR 1. Contractions every 10 minutes or more often 2. Clear, pink, or brownish fluid (water) leaking from vagina 3. Feeling that baby is pushing down, pressure 4. Low, dull backache 5. Cramps that feel like a period 6. Cramps with or without diarrhea If you notice any of the above symptoms, contact our office at [phone] and ask to speak with a nurse. After hours, you can call doctors registry at [phone] OR call [facility] at [phone] and ask to have the doctor communications tech paged. If you consider this an emergency, dial 9-1-5 or go to your nearest emergency department. NEED HELP? Are you dealing with a violent or abusive relationship? Are you a victim of rape or sexual assult? Call [facility] ([place]) 24 hour Crisis Hotline: 587.333.3675 or 847-884-2787. MANUAL Your Guide to a Healthy manual is now on-line. Visit [email or web address] to download your free copyDisposition: Return in about 1 day (around 04/12/2017), or if symptoms worsen or fail to improve, for IKER with NST and U/S for growth and BPP.Follow- up and Disposition History RecordedEncounter Number: [id number] Status:Closed by VAISHALI ROSALES on 04/11/17 HOSP Observed: 04/08/2017 Status: COMPLETED Source: JONES 3:00 PM [facility] REPOSITORY Routine Office Visit (WOOB) -------CEDRIC HARMAN ([id number]) 1995 FDate Time Provider Department04/08/17 3:00 PM ALEXANDRE WATTERS WOOB During your visit today, we recorded the following information about you: Blood pressure Weight 134/82 112.7 kgHayley Money Ma 04/08/2017 2:45 PM SignedSEQUENTIAL SCREENINGSThe [facility] offers sequential screenings for women who are interestedin screenings for chromosomal abnormalities and certain defects during apregnancy. The sequential screen combines ultrasound and blood tests todetermine the risk of chromosomal abnormalities, including Down's Syndrome( Trisomy 21) and Trisomy 18, as well as open neural tube defects includingspina bifida. Ultrasound examination is performed between 11 weeks and 13 weeksgestational age. Blood tests are drawn after the ultrasound and again later inthe between 15 and 21 weeks gestational age. Please let yourphysician know if you are interested in this testing. It will require anappointment with our medical imaging technician. This is not an ultrasound performedby a physician in our office during a routine visit.SIGNS AND SYMPTOMS OF LABOR1. Contractions every 10 minutes or more often2. Clear, pink, or brownish fluid (water) leaking from vagina3. Feeling that baby is pushing down, pressure4. Low, dull backache5. Cramps that feel like a period6. Cramps with or without diarrheaIf you notice any of the above symptoms, contact our office at [phone] andask to speak with a nurse.After hours, you can call [employer] registry at [phone] OR call [facility] at [phone] and ask to have the doctor communications tech paged.If you consider this an emergency, dial 03-18- or go to your nearest emergencydepartment.NEED HELP? Are you dealing with a violent or abusive relationship? Are you avictim of rape or sexual assult? Call [facility] ([place]) 24 hourCrisis Hotline: 164.920.9311 or . MANUALYour Guide to a Healthy manual is now on-line. [email or web address]/ HealthyPregnancyGuide to download your free copyReferring Provider: SELF [[id number]]Allergies As of Date: (No Known Allergies)Date Reviewed: 04/08/2017Reviewed by: Lisa Yarbrough Ma - Fully AssessedReason for Visit: Care [86]Primary Visit Diagnosis:Encounter for supervision of normal first in third trimester [Z34.03] Other Visit Diagnosis:39 weeks gestation of [Z3A.39]Order(s):URINE OB DIP B/O [[id number]] Order #: [id number] as of 04/08/2017 Sig: MEDICATION, NON-DATABASE Antibiotic for bladder infect* CEPHALEXIN 500 MG CAPSULE Take 1 capsule by mouth four * Patient not taking: Reported on 04/08/2017 FAMOTIDINE 20 MG TABLET Take 1 tablet by mouth twice * CYCLOBENZAPRINE 5 MG TABLET Take 1 tablet by mouth three * SERTRALINE 50 MG TABLET Take 1 tablet by mouth once d* PRE-JUSTINA MULTIVITAMINS/MINERAL* Take by mouth.Problem List As Of Date 04/08/2017 Noted Resolved control counseling [Z30.09] INVALID FOR*2016 Sore throat [J02.9] INVALID FOR*09/28/2016 More... Odynophagia [ R13.10] INVALID FOR* More... Spotting in [O26.859] INVALID FOR*09/28/2016 More... History of depression [Z86.59] INVALID FOR* More... Family history of defects [Z82.79] INVALID FOR* More... Obesity in [ O99.210] INVALID FOR* More... Supervision of high risk due to socia* INVALID FOR* More... Chlamydia infection affecting [O98.31*INVALID FOR* More... Other instructions from your clinician: SEQUENTIAL SCREENINGS [facility] offers sequential screenings for women who are interested in screenings for chromosomal abnormalities and certain defects during a . The sequential screen combines ultrasound and blood tests to determine the risk of chromosomal abnormalities, including Down's Syndrome (Trisomy 21) and Trisomy 18, as well as open neural tube defects including spina bifida. Ultrasound examination is performed between 11 weeks and 13 weeks gestational age. Blood tests are drawn after the ultrasound and again later in the between 15 and 21 weeks gestational age. Please let your physician know if you are interested in this testing. It will require an appointment with our medical imaging technician. This is not an ultrasound performed by a physician in our office during a routine visit. SIGNS AND SYMPTOMS OF LABOR 1. Contractions every 10 minutes or more often 2. Clear, pink, or brownish fluid (water) leaking from vagina 3. Feeling that baby is pushing down, pressure 4. Low, dull backache 5. Cramps that feel like a period 6. Cramps with or without diarrhea If you notice any of the above symptoms, contact our office at [phone] and ask to speak with a nurse. After hours, you can call doctors registry at [phone] OR call [facility] at [phone] and ask to have the doctor communications tech paged. If you consider this an emergency, dial 2-9-5 or go to your nearest emergency department. NEED HELP? Are you dealing with a violent or abusive relationship? Are you a victim of rape or sexual assult? Call [facility] ([place]) 24 hour Crisis Hotline: 274.183.6638 or 737-797-7451. MANUAL Your Guide to a Healthy manual is now on-line. Visit [facility].[email or web address]/ HealthyPregnancyGuide to download your free copyEncounter Number: [id number] Status:Closed by ALEXANDRE WATTERS MD on 04/08/17 HOSP Observed: 04/06/2017 Status: COMPLETED Source: [place] 11:20 AM [facility] REPOSITORY Routine Office Visit (WOOB) -------CEDRIC HARMAN ([id number]) 1995 FDate Time Provider Department04/06/17 11:20 AM DANA PINA During your visit today, we recorded the following information about you:Dana Palomares MD 2016 10:20 AM SignedNST SUMMARYPROVIDER ASSESSMENT AND INTERPRETATIONMercan Hraman is a 21 year old female, , who is at 39w1d with an EDDof 04/12/2017, by Last Menstrual Period dating method.Indications for NST: Other: was seen on LANDamp;D for back pain - NST not able totrace well called back for NSTBaseline: 145Variability: ModerateAccelerations: Present 15 X 15Decelerations: NoneContractions: TOCO: NoneInterpretation: Category I and ReactivePt had to hold doppler- unable to trace at times. Pt also did not push FMbutton as she was not instructed. Baby was moving well during NST per patientand was also audible the times I went to check her.SIGNATURE: MICHELLE Retanaefmarion Provider: DANA PINA [[id number]]Allergies As of Date: 04/06/2017( No Known Allergies)Date Reviewed: 04/05/2017Reviewed by: Julisa Benson Superintendent Of Generation - Fully AssessedPrimary Visit Diagnosis:39 weeks gestation of [Z3A.39]Prescriptions as of 04/06/2017 Sig: MEDICATION, NON-DATABASE Antibiotic for bladder infect* CEPHALEXIN 500 MG CAPSULE Take 1 capsule by mouth four * FAMOTIDINE 20 MG TABLET Take 1 tablet by mouth twice * CYCLOBENZAPRINE 5 MG TABLET Take 1 tablet by mouth three * SERTRALINE 50 MG TABLET Take 1 tablet by mouth once d* PRE-JUSTINA MULTIVITAMINS/MINERAL* Take by mouth.Problem List As Of Date 2016 Noted Resolved control counseling [Z30.09] INVALID FOR* Sore throat [J02.9] INVALID FOR*09/28/2016 More... Odynophagia [R13.10] INVALID FOR* More... Spotting in [O26.859] INVALID FOR*09/28/2016 More... History of depression [Z86.59] INVALID FOR* More... Family history of defects [Z82.79] INVALID FOR* More... Obesity in [O99.210] INVALID FOR* More... Supervision of high risk due to socia*INVALID FOR* More... Chlamydia infection affecting [O98.31* INVALID FOR* More... Status:Closed by DANA WASHINGTON MD on 04/06/17 PROGRESS Observed: 04/06/2017 Status: COMPLETED Source: [place] 10:18 AM [facility] REPOSITORY HNO ID: [id number]: Dana WashingtonService: (none)Author Type: PhysicianType: Progress NotesFiled: 04/06/2017 10:20 AMNote Text:NST SUMMARYPROVIDER ASSESSMENT AND INTERPRETATIONMerceddorcas Harman is a 21 year old female, , who is at 39w1d withan ANDREW of 04/12/2017, by Last Menstrual Period dating method.Indications for NST: Other: was seen on LANDD for back pain - NST not ableto trace well called back for NSTBaseline: 145Variability: ModerateAccelerations: Present 15 X 15Decelerations: NoneContractions: TOCO: NoneInterpretation: Category I and ReactivePt had to hold doppler- unable to trace at times. Pt also did not push FMbutton as she was not instructed. Baby was moving well during NST perpatient and was also audible the times I went to check her.SIGNATURE: Dana Palomares MD HOSP Observed: 04/05/2017 Status: COMPLETED Source: [place] 10:30 AM [facility] REPOSITORY Routine Office Visit (WOOB) -------CEDRIC HARMAN Roberto ([id number]) 1995 FDate Time Provider Department04/05/17 10:30 AM BUSHRA WHITE During your visit today, we recorded the following information about you: Blood pressure Weight 136/82 112.5 kgHeather Ping Felix 04/05/2017 10:22 AM SignedSEQUENTIAL SCREENINGSThe [facility] offers [facility] screenings for women who are interestedin screenings for chromosomal abnormalities and certain defects during apregnancy. The sequential screen combines ultrasound and blood tests todetermine the risk of chromosomal abnormalities, including Down's Syndrome( Trisomy 21) and Trisomy 18, as well as open neural tube defects includingspina bifida. Ultrasound examination is performed between 11 weeks and 13 weeksgestational age. Blood tests are drawn after the ultrasound and again later inthe between 15 and 21 weeks gestational age. Please let yourphysician know if you are interested in this testing. It will require anappointment with our medical imaging technician. This is not an ultrasound performedby a physician in our office during a routine visit.SIGNS AND SYMPTOMS OF LABOR1. Contractions every 10 minutes or more often2. Clear, pink, or brownish fluid (water) leaking from vagina3. Feeling that baby is pushing down, pressure4. Low, dull backache5. Cramps that feel like a period6. Cramps with or without diarrheaIf you notice any of the above symptoms, contact our office at [phone] andask to speak with a nurse.After hours, you can call doctors registry at [phone] OR call [facility] at [phone] and ask to have the doctor communications tech paged.If you consider this an emergency, dial 9-1-1 or go to your nearest emergencydepartment.NEED HELP? Are you dealing with a violent or abusive relationship? Are you avictim of rape or sexual assult? Call [facility] ([place]) 24 hourCrisis Hotline: 791.237.6921 or . MANUALYour Guide to a Healthy manual is now on-line. [email or web address]/ HealthyPregnancyGuide to download your free copyReferring Provider: GABRIELA OLIVA [[id number]] Allergies As of Date: 04/05/2017(No Known Allergies)Date Reviewed: 04/05/2017Reviewed by: Julisa Benson Superintendent Of Generation - Fully AssessedReason for Visit: Care [86]Primary Visit Diagnosis: Supervision of high risk due to social problems in third trimester [ O09.73] Other Visit Diagnosis:39 weeks gestation of [Z3A.39]Order(s):URINE OB DIP B/O [ [id number]] Order #: [id number] cephALEXin (KEFLEX) 500 mg capsuleTake 1 capsule by mouth four times daily for 7 days.Disp: 28 capsuleRfl: 0Prescriptions as of 04/05/2017 Sig: MEDICATION, NON-DATABASE Antibiotic for bladder infect* CEPHALEXIN 500 MG CAPSULE Take 1 capsule by mouth four * FAMOTIDINE 20 MG TABLET Take 1 tablet by mouth twice * CYCLOBENZAPRINE 5 MG TABLET Take 1 tablet by mouth three * SERTRALINE 50 MG TABLET Take 1 tablet by mouth once d* PRE-JUSTINA MULTIVITAMINS/MINERAL* Take by mouth.Problem List As Of Date 2016 Noted Resolved control counseling [Z30.09] INVALID FOR* Sore throat [J02.9] INVALID FOR*09/28/2016 More... Odynophagia [R13.10] INVALID FOR* More... Spotting in [O26.859] INVALID FOR*09/28/2016 More... History of depression [Z86.59] INVALID FOR* More... Family history of defects [Z82.79] INVALID FOR* More... Obesity in [O99.210] INVALID FOR* More... Supervision of high risk due to socia*INVALID FOR* More... Chlamydia infection affecting [O98.31* INVALID FOR* More... Other instructions from your clinician: SEQUENTIAL SCREENINGS [facility] offers sequential screenings for women who are interested in screenings for chromosomal abnormalities and certain defects during a . The sequential screen combines ultrasound and blood tests to determine the risk of chromosomal abnormalities, including Down's Syndrome (Trisomy 21) and Trisomy 18, as well as open neural tube defects including spina bifida. Ultrasound examination is performed between 11 weeks and 13 weeks gestational age. Blood tests are drawn after the ultrasound and again later in the between 15 and 21 weeks gestational age. Please let your physician know if you are interested in this testing. It will require an appointment with our medical imaging technician. This is not an ultrasound performed by a physician in our office during a routine visit. SIGNS AND SYMPTOMS OF LABOR 1. Contractions every 10 minutes or more often 2. Clear, pink, or brownish fluid (water) leaking from vagina 3. Feeling that baby is pushing down, pressure 4. Low, dull backache 5. Cramps that feel like a period 6. Cramps with or without diarrhea If you notice any of the above symptoms, contact our office at [phone] and ask to speak with a nurse. After hours, you can call doctors registry at [phone] OR call [facility] at [phone] and ask to have the doctor communications tech paged. If you consider this an emergency, dial 5-1-6 or go to your nearest emergency department. NEED HELP? Are you dealing with a violent or abusive relationship? Are you a victim of rape or sexual assult? Call [facility] ([place]) 24 hour Crisis Hotline: 555.690.7730 or . MANUAL Your Guide to a Healthy manual is now on-line. Visit [email or web address]/HealthyPregnancyGuide to download your free copyPrescriptions ordered this encounter Disp Refills Start End CEPHALEXIN 500 MG CAPSULE 28 c* 0 04/05/2017 04/12/2017 Class: Med Update Route: ORAL Sig: Take 1 capsule by mouth four times daily for 7 days. Status:Closed by BUSHRA WHITE MD on 04/05/17 Observed: 04/03/2017 Status: F Source: [facility], URINE 5:45 PM [facility] REPOSITORY Urine CultureORGANISM 1: Mixed Gram Positive OrganismsColony Count 11,000-25,000MIX CULTURE Mixed contaminants. Submit a new specimen if indicated. Performed By: #### M100.0650 ####[facility] [id number] [place], [address] URINALYSIS, COMPLETE Collected: 04/03/2017 Status: F Source: [place] 4:30 PM [facility] REPOSITORY Order Comment: How was Urine Obtained? WEBSITE PROGRAMMER TO SPECIFY TYPE CODE TESTS RESULT OUT OF RANGE REFERENCE UNITS LAB L400.3000 Normal Yellow COLOR Yellow LAB L400.3050 Normal Clear CLARITY Sl. Cloudy LAB L400.3200 High Normal mg/dl GLUCOSE, UR 100 LAB L400.3300 Normal Negative mg/dL BILIRUBIN Negative URINE LAB L400.3400 High Negative mg/dl KETONE UR 5 LAB L400.3465 Normal 1.002-1.030 SP.GR. 1.025 DIPSTX LAB L400.3550 Normal 5.0 - 8.0 pH UR 6.5 LAB L400.3600 High Negative mg/dl PROT DIPSTX 30 LAB L400.3700 Normal Normal mg/dl UROBILI Normal LAB L400.3750 Normal Negative NITRITE UR Negative LAB L400.3780 High Negative /ul OCCULT 10 BLOOD-UR LAB L400.3800 High Negative /ul LEUK 500 ESTERASE LAB L400.4050 Normal 0-5 /hpf WBC 50-100 SEEN LAB L400.4100 Normal 0-5 /hpf RBC-UA 10-25 SEEN LAB L400.4150 Normal 5-10 /hpf SQUAM EPI 50-100 SEEN LAB L400.4300 Normal None Seen /hpf BACTERIA 4+ LAB L400.4350 Normal <or=2+ /hpf MUCUS, 0 SEEN URINE LAB L400.4700 Normal <or=2+ /hpf CA OX 1+ CRYSTAL Performed By: #### L400.0001 ####[facility] [id number] [place], [place], [address] PROGRESS Observed: 04/03/2017 Status: COMPLETED Source: [place] 3:38 PM [facility] REPOSIT[facility] HNO ID: [id number]: Bautista Burch ([place]) Brady Caseye: (none)Author Type: Nurse PractitionerType: Progress NotesFiled: 04/03/2017 3:44 PMNote Text:HPIPatient presents with:Back Pain: 38 weeks and 5 days Recommended further eval/tx at local OB unit to rule out possible laborPt verbalized understanding.ROSPAST MEDICAL HISTORYDiagnosis Date- Chlamydia 2013 and 2017- DepressionPAST SURGICAL HISTORYProcedure Laterality Date- PAST SURGICAL HISTORY OF oral (gum) surgeryALLERGIES Review of patient's allergies indicates no known allergies.MEDICATIONSfamotidine (PEPCID) 20 mg tablet Take 1 tablet by mouth twice daily asneeded.sertraline (ZOLOFT) 50 mg tablet Take 1 tablet by mouth once daily.PNV/IRON,CARB/OM-3/FA/FAT 1 (PRE-JUSTINA MULTIVITAMINS/MINERALS ORAL) Take bymouth.cyclobenzaprine (FLEXERIL) 5 mg tablet Take 1 tablet by mouth three timesdaily as needed.FAMILY HISTORYProblem Relation Age of Onset- Allergies Mother- brain tumor benign [OTHER] Father- Depression, anxiety , panic attacks [OTHER] Father- Hypertension Maternal Grandmother- Lipids Maternal Grandmother- Depression [OTHER] Maternal Grandmother- Asthma Maternal Grandfather- COPD Maternal GrandfatherSocial HistorySubstance Use Topics- Smoking status: Never Smoker- Smokeless tobacco: Never Used- Alcohol use NoPhysical Exam CNOV Observed: 04/03/2017 Status: COMPLETED Source: [place] 3:15 PM [facility] REPOSITORY Office Visit (UCWSTR) ---------CEDRIC HARMAN ([id number]) 1995 FDate Time Provider Department04/03/17 3:15 PM BAUTISTA CASEY ([place]) WSTR During your visit today, we recorded the following information about you: Temperature Pulse Respiration Blood pressure 99.2 degrees 78/minute 16/minute 118/72 Weight 112.9 kgBautista Casey CNP, ERICA 04/03/2017 3:44 PM SignedHPIPatient presents with:Back Pain: 38 weeks and 5 days Recommended further eval/tx at local OB unit to rule out possible laborPt verbalized understanding.ROSPAST MEDICAL HISTORYDiagnosis Date- Chlamydia 2013 and 2016- DepressionPAST SURGICAL HISTORYProcedure Laterality Date- PAST SURGICAL HISTORY OF oral (gum) surgeryALLERGIES Review of patient's allergies indicates no known allergies.MEDICATIONSfamotidine (PEPCID ) 20 mg tablet Take 1 tablet by mouth twice daily as needed.sertraline (ZOLOFT) 50 mg tablet Take 1 tablet by mouth once daily.PNV/IRON,CARB/OM-3/FA/FAT 1 (PRE-JUSTINA MULTIVITAMINS/MINERALS ORAL) Take bymouth.cyclobenzaprine (FLEXERIL) 5 mg tablet Take 1 tablet by mouth three times dailyas needed.FAMILY HISTORYProblem Relation Age of Onset- Allergies Mother- brain tumor benign [OTHER] Father- Depression, anxiety , panic attacks [OTHER] Father- Hypertension Maternal Grandmother- Lipids Maternal Grandmother - Depression [OTHER] Maternal Grandmother- Asthma Maternal Grandfather- COPD Maternal GrandfatherSocial HistorySubstance Use Topics- Smoking status: Never Smoker- Smokeless tobacco: Never Used- Alcohol use NoPhysical ExamReferring Provider: SELF [[id number]]Allergies As of Date: 04/03/2017(No Known Allergies)Date Reviewed: 04/03/2017Reviewed by: Michelle Redman Ma - Fully AssessedReason for Visit: Back Pain [12] Cmt: 38 weeks and 5 days Primary Visit Diagnosis:Acute midline low back pain without sciatica [M54.5]Order(s): DIP B/O [[id number]] Order #: [id number] as of Sig: FAMOTIDINE 20 MG TABLET Take 1 tablet by mouth twice * SERTRALINE 50 MG TABLET Take 1 tablet by mouth once d* PRE-JUSTINA MULTIVITAMINS/MINERAL* Take by mouth. CYCLOBENZAPRINE 5 MG TABLET Take 1 tablet by mouth three *Medication notes this encounter CYCLOBENZAPRINE 5 MG TABLET >> Michelle Redman Ma 04/03/2017 3:13 PM >> MICHELLE REDMAN MA Apr 03, 2017 3:13 PM doneProblem List As Of Date 04/03/2017 Noted Resolved control counseling [Z30.09] INVALID FOR*09/28/2016 Sore throat [J02.9] INVALID FOR*09/28/2016 More... Odynophagia [R13.10] INVALID FOR* More... Spotting in [O26.859] INVALID FOR*09/28/2016 More... History of depression [Z86.59] INVALID FOR* More... Family history of defects [Z82.79] INVALID FOR* More... Obesity in [O99.210] INVALID FOR* More... Supervision of high risk due to socia*INVALID FOR* More... Chlamydia infection affecting [O98.31*INVALID FOR* More... Status:Closed by BAUTISTA CASEY on 04/03/17 (ROM) RUPTURE OF Collected: 03/30/2017 Status: F Source: [facility] 7:48 PM [facility] REPOSITORY TYPE CODE TESTS RESULT OUT OF RANGE REFERENCE UNITS LAB L205.1310 Normal Negative ROM Negative Result Comment: Amniotic fluid not present indicates No Rupture of FetalMembranes at time of specimen collection. Performed By: #### L205.1000 ####[facility] [id number] [place], [address] PROGRESS Observed: 03/30/2017 Status: COMPLETED Source: [place] 1:33 PM [facility] REPOSITORY HNO ID: [id number]: Alexandre Woody: (none) Author Type: PhysicianType: Progress NotesFiled: 03/30/2017 1:35 PMNote Text:NST SUMMARYPROVIDER ASSESSMENT AND INTERPRETATIONMerceddorcas Harman is a 21 year old female, , who is at 38w1d withan ANDREW of 04/12/2017, by Last Menstrual Period dating method.Indications for NST: Other: Patient not feeling well, mildly elevated BPBaseline: 155Variability: ModerateAccelerations: Present 15 X 15Decelerations : NoneContractions: TOCO: NoneInterpretation: Category I and ReactiveSIGNATURE: Alexandre Watters MD HOSP Observed: 03/30/2017 Status: COMPLETED Source: [place] 11:40 AM [facility] REPOSITORY Routine Office Visit (WOOB) -------CEDRIC HARMAN ([id number]) 1995 FDate Time Provider Department03/30/17 11:40 AM ALEXANDRE WATTERS During your visit today, we recorded the following information about you: Blood pressure Weight 130/78 113.4 kgTabatha [facility] 03/30/2017 11:46 AM SignedSEQUENTIAL SCREENINGSThe [facility] offers [facility] screenings for women who are interestedin screenings for chromosomal abnormalities and certain defects during apregnancy. The sequential screen combines ultrasound and blood tests todetermine the risk of chromosomal abnormalities, including Down's Syndrome( Trisomy 21) and Trisomy 18, as well as open neural tube defects includingspina bifida. Ultrasound examination is performed between 11 weeks and 13 weeksgestational age. Blood tests are drawn after the ultrasound and again later inthe between 15 and 21 weeks gestational age. Please let yourphysician know if you are interested in this testing. It will require anappointment with our medical imaging technician. This is not an ultrasound performedby a physician in our office during a routine visit.SIGNS AND SYMPTOMS OF LABOR1. Contractions every 10 minutes or more often2. Clear, pink, or brownish fluid (water) leaking from vagina3. Feeling that baby is pushing down, pressure4. Low, dull backache5. Cramps that feel like a period6. Cramps with or without diarrheaIf you notice any of the above symptoms, contact our office at [phone] andask to speak with a nurse.After hours, you can call doctors registry at [phone] OR call [facility] at [phone] and ask to have the doctor communications tech paged.If you consider this an emergency, dial 7--0 or go to your nearest emergencydepartment.NEED HELP? Are you dealing with a violent or abusive relationship? Are you avictim of rape or sexual assult? Call [facility] ([place]) 24 hourCrisis Hotline: 910.679.4139 or . MANUALYour Guide to a Healthy manual is now on-line. [email or web address]/ HealthyPregnancyGuide to download your free copyRgloria Watters MD 03/30/2017 1:35 PM SignedNST SUMMARYPROVIDER ASSESSMENT AND INTERPRETATIONMercan Harman is a 21 year old female, , who is at 38w1d with an EDDof 04/12/2017, by Last Menstrual Period dating method.Indications for NST: Other: Patient not feeling well, mildly elevated BPBaseline: 155Variability: ModerateAccelerations: Present 15 X 15Decelerations: NoneContractions: TOCO: NoneInterpretation: Category I and ReactiveSIGNATURE: MICHELLE Markhameferrsuha Provider: GABRIELA OLIVA [[id number]]Allergies As of Date: (No Known Allergies)Date Reviewed: 03/30/2017Reviewed by: January Flores Ma - Fully AssessedReason for Visit: Care [86]Primary Visit Diagnosis:38 weeks gestation of [ Z3A.38] Other Visit Diagnoses:Encounter for supervision of normal first in third trimester [Z34.03] Elevated blood pressure reading without diagnosis of hypertension [R03.0]Order(s):URINE OB DIP B/O [[id number]] Order # : [id number] as of 03/30/2017 Sig: FAMOTIDINE 20 MG TABLET Take 1 tablet by mouth twice * CYCLOBENZAPRINE 5 MG TABLET Take 1 tablet by mouth three * SERTRALINE 50 MG TABLET Take 1 tablet by mouth once d* PRE-JUSTINA MULTIVITAMINS/MINERAL * Take by mouth.Problem List As Of Date 03/30/2017 Noted Resolved control counseling [Z30.09] INVALID FOR*09/28/2016 Sore throat [J02.9] INVALID FOR*09/28/2016 More... Odynophagia [R13.10] INVALID FOR* More... Spotting in [O26.859] INVALID FOR*09/28/2016 More... History of depression [Z86.59] INVALID FOR* More... Family history of defects [Z82.79] INVALID FOR* More... Obesity in [O99.210] INVALID FOR* More... Supervision of high risk due to socia*INVALID FOR* More... Chlamydia infection affecting [O98.31*INVALID FOR* More... Notes for Staff Will only call if abnormal Other instructions from your clinician: SEQUENTIAL SCREENINGS [facility] offers sequential screenings for women who are interested in screenings for chromosomal abnormalities and certain defects during a . The sequential screen combines ultrasound and blood tests to determine the risk of chromosomal abnormalities, including Down's Syndrome (Trisomy 21) and Trisomy 18, as well as open neural tube defects including spina bifida. Ultrasound examination is performed between 11 weeks and 13 weeks gestational age. Blood tests are drawn after the ultrasound and again later in the between 15 and 21 weeks gestational age. Please let your physician know if you are interested in this testing. It will require an appointment with our medical imaging technician. This is not an ultrasound performed by a physician in our office during a routine visit. SIGNS AND SYMPTOMS OF LABOR 1. Contractions every 10 minutes or more often 2. Clear, pink, or brownish fluid (water) leaking from vagina 3. Feeling that baby is pushing down, pressure 4. Low, dull backache 5. Cramps that feel like a period 6. Cramps with or without diarrhea If you notice any of the above symptoms, contact our office at [phone] and ask to speak with a nurse. After hours, you can call doctors registry at [phone] OR call [facility] at [phone] and ask to have the doctor communications tech paged. If you consider this an emergency, dial 9-1-4 or go to your nearest emergency department. NEED HELP? Are you dealing with a violent or abusive relationship? Are you a victim of rape or sexual assult? Call [facility] ([place]) 24 hour Crisis Hotline: 305.683.8704 or . MANUAL Your Guide to a Healthy manual is now on-line. Visit [email or web address] to download your free copyFollow Up: Will only call if abnormalDisposition: Return in about 1 week (around 04/06/2017) for routine OB check.Follow-up and Disposition History RecordedClassic SmartForms filed during this visit:Extended VitalsEncounter Number: [id number] Status:Closed by ALEXANDRE WATTERS MD on 03/30/17 CBC-COMPLETE BLOOD CNT Collected: 03/25/2017 Status: F Source: CHRISTEL NO DIFF 11:49 AM [facility] REPOSITORY TYPE CODE TESTS RESULT OUT OF RANGE REFERENCE UNITS LAB L100.1000 High 4.4-11.0 K/mm3 WBC 11.3 LAB L100.1200 Low 4.2-5.4 M/mm3 RBC 4.15 LAB L100.1300 Low 12.0-15.0 g/dl HGB 11.6 LAB L100.1400 Low 37-47 % HCT 35.7 LAB L100.1500 Normal 81-99 fL MCV 86.0 LAB L100.1600 Normal 27.0-32.0 pg MCH 28.0 LAB L100.1700 Normal 32-36 g/gl MCHC 32.5 LAB L100.1810 High 11.6-14.6 % RDW 14.9 CV LAB L100.1820 High 35.1-43.9 fl RDW 45.4 SD LAB L100.1900 Normal 150-450 K/mm3 PLT 158 LAB L100.2000 High 6.2-12.0 fl MPV 12.1 Performed By: #### L100.0500 ####[facility] [address] [place], [place], [address] LIVER PROFILE Collected: 03/25/2017 Status: F Source: CHRISTEL 11:49 AM [facility] REPOSITORY TYPE CODE TESTS RESULT OUT OF RANGE REFERENCE UNITS LAB L501.1500 Normal 6.4-8.2 g/dL T 7.2 PROT LAB L501.1800 Low 3.4-5.0 g/dL ALB 2.5 LAB L501.1950 High 2.3-3.5 g/dL GLOB 4.7 LAB L501.4100 Normal 15-37 U/L AST 15 LAB L501.4305 High 45-117 U/L ALK P 176 LAB L501.4405 Normal 12-78 U/L ALT 15 LAB L501.4600 Normal 0.20-1.00 mg/dL T 0.30 BILI LAB L501.4700 Normal 0.00-0.30 mg/dL D 0.07 BILI Performed By: #### L500.3400, L501.1000, L501.1105, L501.1400 ####[facility] [address] [place], [address] BUN Collected: 03/25/2017 Status: F Source: CHRISTEL 11:49 AM [facility] REPOSITORY TYPE CODE TESTS RESULT OUT OF RANGE REFERENCE UNITS LAB L501.1000 Low 7-18 mg/dL BUN 5 Performed By: #### L500.3400, L501.1000, L501.1105, L501.1400 ####[facility] [address] [place], [address] SERUM CREATININE AND Collected: 03/25/2017 Status: F Source: [place] GFR 11:49 AM [facility] REPOSITORY TYPE CODE TESTS RESULT OUT OF RANGE REFERENCE UNITS LAB L501.1100 Low 0.55-1.02 mg/dL 0.44 CREAT,SERUM Result Comment: The validity of the calculated GFR AND GFRAA in patients over70 years has not been determined. Clinical correlation isessential. LAB L501.1110 Normal >60 mL/min EST GFR 192 Result Comment: Non- GFR Calc LAB L501.1115 Normal >60 mL/min EST GFR - 232 AA Result Comment: GFR Calc Performed By: #### L500.3400, L501.1000, L501.1105, L501.1400 ####[facility] [address] [place], [address] URIC ACID Collected: 03/25/2017 Status: F Source: CHRISTEL 11:49 AM [facility] REPOSITORY TYPE CODE TESTS RESULT OUT OF RANGE REFERENCE UNITS LAB L501.1400 Normal 2.6-6.0 mg/dL URIC 3.8 Result Comment: The drugs N-Acetylcysteine and Metamizole may falselydepress this assay. Performed By: #### L500.3400, L501.1000, L501.1105, L501.1400 ####[facility] [address] [place], [address] HOSP Observed: 03/23/2017 Status: COMPLETED Source: JONES 1:50 PM [facility] REPOSITORY Routine Office Visit (WOOB) -------CEDRIC HARMAN ([id number]) 1995 FDate Time Provider Department03/23/17 1:50 PM DANA PINA WOOB During your visit today, we recorded the following information about you: Blood pressure Weight 130/80 112 kgJenny Kelley Ma 03/23/2017 1:41 PM SignedSEQUENTIAL SCREENINGSThe [facility] offers sequential screenings for women who are interestedin screenings for chromosomal abnormalities and certain defects during apregnancy. The sequential screen combines ultrasound and blood tests todetermine the risk of chromosomal abnormalities, including Down's Syndrome(Trisomy 21) and Trisomy 18 , as well as open neural tube defects includingspina bifida. Ultrasound examination is performed between 11 weeks and 13 weeksgestational age. Blood tests are drawn after the ultrasound and again later inthe between 15 and 21 weeks gestational age. Please let yourphysician know if you are interested in this testing. It will require anappointment with our medical imaging technician. This is not an ultrasound performedby a physician in our office during a routine visit.SIGNS AND SYMPTOMS OF LABOR1. Contractions every 10 minutes or more often2. Clear, pink, or brownish fluid ( water) leaking from vagina3. Feeling that baby is pushing down, pressure4. Low, dull backache5. Cramps that feel like a period6. Cramps with or without diarrheaIf you notice any of the above symptoms , contact our office at [phone] andask to speak with a nurse.After hours, you can call doctors registry at [phone] OR call [facility] at [phone] and ask to have the doctor communications tech paged.If you consider this an emergency, dial 9-- or go to your nearest emergencydepartment.NEED HELP? Are you dealing with a violent or abusive relationship? Are you avictim of rape or sexual assult? Call [facility] ([place]) 24 hourCrisis Hotline: 422.300.8182 or 130-645-0145. MANUALYour Guide to a Healthy manual is now on-line. [email or web address]/ HealthyPregnancyGuide to download your free copyReferring Provider: GABRIELA OLIVA [[id number]]Allergies As of Date: (No Known Allergies)Date Reviewed: 03/23/2017Reviewed by: Jenny Kelley Ma - Fully AssessedReason for Visit: Care [86]Primary Visit Diagnosis:Supervision of high risk in third trimester [O09.93] Other Visit Diagnosis:37 weeks gestation of [Z3A.37]Order(s):URINE OB DIP B/O [4026089] Order #: [id number] as of 03/23/2017 Sig: FAMOTIDINE 20 MG TABLET Take 1 tablet by mouth twice * CYCLOBENZAPRINE 5 MG TABLET Take 1 tablet by mouth three * SERTRALINE 50 MG TABLET Take 1 tablet by mouth once d * PRE-JUSTINA MULTIVITAMINS/MINERAL* Take by mouth.Problem List As Of Date 03/23/2017 Noted Resolved control counseling [Z30.09] INVALID FOR*2016 Sore throat [J02.9] INVALID FOR*09/28/2016 More... Odynophagia [ R13.10] INVALID FOR* More... Spotting in [O26.859] INVALID FOR*09/28/2016 More... History of depression [Z86.59] INVALID FOR* More... Family history of defects [Z82.79] INVALID FOR* More... Obesity in [ O99.210] INVALID FOR* More... Supervision of high risk due to socia* INVALID FOR* More... Chlamydia infection affecting [O98.31*INVALID FOR* More... Other instructions from your clinician: SEQUENTIAL SCREENINGS [facility] offers sequential screenings for women who are interested in screenings for chromosomal abnormalities and certain defects during a . The sequential screen combines ultrasound and blood tests to determine the risk of chromosomal abnormalities, including Down's Syndrome (Trisomy 21) and Trisomy 18, as well as open neural tube defects including spina bifida. Ultrasound examination is performed between 11 weeks and 13 weeks gestational age. Blood tests are drawn after the ultrasound and again later in the between 15 and 21 weeks gestational age. Please let your physician know if you are interested in this testing. It will require an appointment with our medical imaging technician. This is not an ultrasound performed by a physician in our office during a routine visit. SIGNS AND SYMPTOMS OF LABOR 1. Contractions every 10 minutes or more often 2. Clear, pink, or brownish fluid (water) leaking from vagina 3. Feeling that baby is pushing down, pressure 4. Low, dull backache 5. Cramps that feel like a period 6. Cramps with or without diarrhea If you notice any of the above symptoms, contact our office at [phone] and ask to speak with a nurse. After hours, you can call doctors registry at [phone] OR call [facility] at [phone] and ask to have the doctor communications tech paged. If you consider this an emergency, dial 2-5-7 or go to your nearest emergency department. NEED HELP? Are you dealing with a violent or abusive relationship? Are you a victim of rape or sexual assult? Call [facility] ([place]) 24 hour Crisis Hotline: 118.840.8754 or 384-154-6322. MANUAL Your Guide to a Healthy manual is now on-line. Visit [email or web address]/ HealthyPregnancyGuide to download your free copyEncounter Number: [id number] Status:Closed by DANA WASHINGTON MD on 03/23/17 GC/CHLAMYDIA AMPLIF Collected: 03/15/2017 Status: F Source: JONES 10:40 AM [facility] REPOSITORY TYPE CODE TESTS RESULT OUT OF REFERENCE UNITS RANGE LAB GCCTSR GC/Chlam Amp Cervix Source LAB GCAMPL GC Amplification Negative for Neisseria gonorrhoeae by amplification. LAB CLAMPL Chlamydia Amplif Negative for Chlamydia trachomatis by amplification. Performed By: #### GCCT ####[facility], [place] [phone] GROUP B STREP PCR Collected: 03/15/2017 Status: F Source: JONES 10:40 AM [facility] REPOSITORY TYPE CODE TESTS RESULT OUT OF RANGE REFERENCE UNITS LAB GBPCRT Abnormal Positive for Group Alert GROUP B B Streptococcus by STREP PCR PCR. If susceptibility testing is needed and was not requested with initial test order, call lab ([phone]) within 5 days to initiate workup. Performed By: #### GBPCR ####[facility] [address], [place] [phone] [facility] Observed: 03/15/2017 Status: COMPLETED Source: JONES 10:30 AM [facility] Routine Office Visit (WOOB) -------CEDRIC HARMAN ([id number]) 1995 FDate Time Provider Department03/15/17 10:30 AM BUSHRA WHITE During your visit today, we recorded the following information about you: Blood pressure Weight 134/72 111.2 kgInna Feng Ma 03/15/2017 10:18 AM SignedSEQUENTIAL SCREENINGSThe [facility] offers sequential screenings for women who are interestedin screenings for chromosomal abnormalities and certain defects during apregnancy. The sequential screen combines ultrasound and blood tests todetermine the risk of chromosomal abnormalities, including Down's Syndrome( Trisomy 21) and Trisomy 18, as well as open neural tube defects includingspina bifida. Ultrasound examination is performed between 11 weeks and 13 weeksgestational age. Blood tests are drawn after the ultrasound and again later inthe between 15 and 21 weeks gestational age. Please let yourphysician know if you are interested in this testing. It will require anappointment with our medical imaging technician. This is not an ultrasound performedby a physician in our office during a routine visit.SIGNS AND SYMPTOMS OF LABOR1. Contractions every 10 minutes or more often2. Clear, pink, or brownish fluid (water) leaking from vagina3. Feeling that baby is pushing down, pressure4. Low, dull backache5. Cramps that feel like a period6. Cramps with or without diarrheaIf you notice any of the above symptoms, contact our office at [phone] andask to speak with a nurse.After hours, you can call doctors registry at [phone] OR call [facility] at [phone] and ask to have the doctor communications tech paged.If you consider this an emergency, dial 9-6 or go to your nearest emergencydepartment.NEED HELP? Are you dealing with a violent or abusive relationship? Are you avictim of rape or sexual assult? Call [facility] ([place]) 24 hourCrisis Hotline: 128.203.1451 or . MANUALYour Guide to a Healthy manual is now on-line. [email or web address]/ HealthyPregnancyGuide to download your free copyReferring Provider: GABRIELA OLIVA [[id number]] Allergies As of Date: 03/15/2017(No Known Allergies)Date Reviewed: 03/15/2017Reviewed by: Inna Feng Ma - Fully AssessedReason for Visit: Care [86]Primary Visit Diagnosis:Encounter for supervision of normal first in third trimester [Z34.03] Other Visit Diagnoses:36 weeks gestation of [Z3A.36] Screen for STD ( sexually transmitted disease) [Z11.3]Order(s):URINE OB DIP B/O [[id number]] Order #: [id number] STREPTOCOCCUS B PCR [SQGBSPCR] Order #: [id number] GC/CHLAMYDIA DNA DET [SQGCCAMP] Order #: [id number] as of 03/15/2017 Sig: FAMOTIDINE 20 MG TABLET Take 1 tablet by mouth twice * CYCLOBENZAPRINE 5 MG TABLET Take 1 tablet by mouth three * SERTRALINE 50 MG TABLET Take 1 tablet by mouth once d* PRE-JUSTINA MULTIVITAMINS/MINERAL * Take by mouth.Problem List As Of Date 03/15/2017 Noted Resolved control counseling [Z30.09] INVALID FOR*09/28/2016 Sore throat [J02.9] INVALID FOR*09/28/2016 More... Odynophagia [R13.10] INVALID FOR* More... Spotting in [O26.859] INVALID FOR*09/28/2016 More... History of depression [Z86.59] INVALID FOR* More... Family history of defects [Z82.79] INVALID FOR* More... Obesity in [O99.210] INVALID FOR* More... Supervision of high risk due to socia*INVALID FOR* More... Chlamydia infection affecting [O98.31*INVALID FOR* More... Other instructions from your clinician: SEQUENTIAL SCREENINGS [facility] offers sequential screenings for women who are interested in screenings for chromosomal abnormalities and certain defects during a . The sequential screen combines ultrasound and blood tests to determine the risk of chromosomal abnormalities, including Down's Syndrome (Trisomy 21) and Trisomy 18, as well as open neural tube defects including spina bifida. Ultrasound examination is performed between 11 weeks and 13 weeks gestational age. Blood tests are drawn after the ultrasound and again later in the between 15 and 21 weeks gestational age. Please let your physician know if you are interested in this testing. It will require an appointment with our medical imaging technician. This is not an ultrasound performed by a physician in our office during a routine visit. SIGNS AND SYMPTOMS OF LABOR 1. Contractions every 10 minutes or more often 2. Clear, pink, or brownish fluid (water) leaking from vagina 3. Feeling that baby is pushing down, pressure 4. Low, dull backache 5. Cramps that feel like a period 6. Cramps with or without diarrhea If you notice any of the above symptoms, contact our office at [phone] and ask to speak with a nurse. After hours, you can call doctors registry at [phone] OR call [facility] at [phone] and ask to have the doctor communications tech paged. If you consider this an emergency, dial -9 or go to your nearest emergency department. NEED HELP? Are you dealing with a violent or abusive relationship? Are you a victim of rape or sexual assult? Call [facility] ([place]) 24 hour Crisis Hotline: 151.620.9079 or 725-276-6801. MANUAL Your Guide to a Healthy manual is now on-line. Visit [facility].[email or web address]/ HealthyPregnancyGuide to download your free copyEncounter Number: [id number] Status:Closed by BUSHRA WHITE MD on 03/15/17 EMERGENCY DEPARTMENT Observed: 03/04/2017 Status: F Source: [place] SUMMARY 4:13 PM [facility] REPOSITORY [facility] [address] [place], [place] [address]Zktpywctd Department Oumkruw30/18/17 1527MR#: [id number] Acct: [id number]: CEDRIC HARMAN Rep #: [id number]: 1995 21 From: Kin Lucas MDPCP: Kishore Medina MD Status: DEP ER- ER Visit SummaryDate of Service: 03/04/17Chief Complaint: Right knee and ankle painHistory of Present Illness: The patient is a 21 F who is currently 34 weeks presentsafter mechanical fall. Patient states she was chasing her younger cousin tripped and fell onconcrete. She twisted her right foot and landed on her right knee. Since then, she has had adifficult time walking because of pain. She denies any vaginal bleeding or discharge. Thepatient actually went to OB triage and was evaluated. She was then sent down here for furtherevaluation of her injuries.Physical Examination: Exam relatively unremarkable. Patient has scant abrasion on the rightknee. Extension is preserved. She also has contusion at the distal end of the secondmetatarsal. Pulses are normal. Skin is otherwise intact. No compartment syndrome.Test Results: X -rays of the knee and foot are unremarkableEmergency Department Course and Treatment: Patient underwent plain films with her abdomenshielded. There is no evidence of acute fracture. The patient will continue an Adán wrap forcompression. She will continue ice and Tylenol. She will be discharged home.Treatment Plan: [] Disposition: DischargedImpression: 1. Right knee contusion 2. Right foot contusionED Disposition- Plan for ED Patient:Chief Complaint: Lower Extremity InjuryInstructions: ED Contusion Lower ExtReferrals:Kishore Medina MD [Primary Care Provider] - What to do if you have ProblemsFor any increased pain, shortness of breath, bleeding, nausea or vomiting, chest pain, or anyunexpected problems, contact your Primary Care Provider. Call Doctors Registry ([phone])or report to the closest Emergency Room.Call 911 if necessary.03/04/17 4853 <Electronically signed by Kin Lucas MD>Date iKn Lucas [facility] MIAMIosigner Signature (If Indicated): Date CC: Kishore Medina MD FOOT MIN 3 VIEWS Observed: 03/04/2017 Status: F Source: [place] 3:07 PM [facility] REPOSITORY [facility]Im[facility] [address] [place], [place] [address]Nnyp min 3 ViewsMR#: [id number] Acct: [id number]: CEDRIC HARMAN Rep #: [id number]: 1995 F 21 From: Danny Velez MDPCP: Kishore Medina MD Status: DEP ERStudy: Foot min 3 Views Date of Exam: 03/04/17Exam# [id number] Ordering Dr: Kin Lucas MDSTUDY: X-RAY - RIGHT FOOTCLINICAL: Female, 21 years old. TraumaTECHNIQUE: 3 view( s) of the foot.COMPARISON: None. FINDINGS:Normal talus, calcaneus, and tarsal bones.Normal visualized subtalar, talonavicular, calcaneocuboid, tarsal andtarsometatarsal articulations.Normal metatarsi.Normal metatarsophalangeal joint of the great toe. Normal tibial andfibular sesamoid bones. Normal interphalangeal joint of the great toe.Normal phalanges of the great toe.Normal second through fifth metatarsophalangeal joints. Normalinterphalangeal joints and phalanges of the lesser toes.The soft tissue structures are unremarkable. ORDER #: [id number] RAD/Foot min 3 ViewsIMPRESSION:Normal x-ray examination of the foot.Electronically Signed: Danny Velez MD at 16:22 EDTTel , Service support , SW: Kishore Medina MD; Kin Lucas MD Lamination Inspector:Signed KNEE 1 OR 2 VIEWS Observed: 03/04/2017 Status: F Source: [place] 3:07 PM [facility] REPOSITORY [facility] [address] [place] [address]Srua 1 or 2 ViewsMR#: [id number] Acct: [id number]: CEDRIC HARMAN Rep #: [id number]: 1995 F 21 From: Danny Velez MDPCP: Kishore Medina MD Status: DEP ERStudy: Knee 1 or 2 Views Date of Exam: 03/04/17Exam# [id number] Ordering Dr: Kin Lucas MDSTUDY: X-RAY - RIGHT KNEEREASON FOR EXAM: Female, 21 years old. TraumaTECHNIQUE: 2 view(s) of the knee.COMPARISON: None. FINDINGS:Normal visualized distal femur. Normal visualized proximal tibia andfibula. Normal proximal tibiofibular articulation.Normal medial femorotibial compartment. Normal lateral femorotibialcompartment. Normal patellofemoral articulation.The soft tissue structures are unremarkable. ORDER #: [id number] RAD/Knee 1 or 2 ViewsIMPRESSION:Normal x-ray examination of the knee.Electronically Signed:Danny Velez MD at 16:23 [place] , Service support , ED: Kishore Medina MD; Kin Lucas MD Lamination Inspector:Signed CBC-COMPLETE BLOOD CNT Collected: 03/04/2017 Status: F Source: CHRISTEL NO DIFF 11:20 AM [facility] REPOSITORY TYPE CODE TESTS RESULT OUT OF RANGE REFERENCE UNITS LAB L100.1000 High 4.4-11.0 K/mm3 WBC 12.1 LAB L100.1200 Low 4.2-5.4 M/mm3 RBC 3.78 LAB L100.1300 Low 12.0-15.0 g/dl HGB 10.8 LAB L100.1400 Low 37-47 % HCT 32.9 LAB L100.1500 Normal 81-99 fL MCV 87.0 LAB L100.1600 Normal 27.0-32.0 pg MCH 28.6 LAB L100.1700 Normal 32-36 g/gl MCHC 32.8 LAB L100.1810 High 11.6-14.6 % RDW 14.7 CV LAB L100.1820 High 35.1-43.9 fl RDW 44.3 SD LAB L100.1900 Normal 150-450 K/mm3 PLT 161 LAB L100.2000 Normal 6.2-12.0 fl MPV 11.2 Performed By: #### L100.0500, L300.3900, L300.4310, L300.4700 ####[facility] [address] [place], [place], [address] PROTHROMBIN TIME W/INR Collected: 03/04/2017 Status: F Source: CHRISTEL 11:20 AM [facility] REPOSITORY TYPE CODE TESTS RESULT OUT OF RANGE REFERENCE UNITS LAB L300.4150 Normal 11.7-14.9 SECONDS PROTIME 13.3 LAB L300.4200 Normal INR 1.1 Performed By: #### L100.0500, L300.3900, L300.4310, L300.4700 ####[facility] [address] [place], [place], [id number] PARTIAL THROMBOPLAST Collected: 03/04/2017 Status: F Source: [place] TIME 11:20 AM [facility] REPOSITORY TYPE CODE TESTS RESULT OUT OF RANGE REFERENCE UNITS LAB L300.4310 Normal 24.1-36.2 Seconds PTT 24.4 Performed By: #### L100.0500, L300.3900, L300.4310, L300.4700 ####[facility] [address] [place], [address] FIBRINOGEN Collected: 03/04/2017 Status: F Source: CHRISTEL 11:20 AM [facility] REPOSITORY TYPE CODE TESTS RESULT OUT OF RANGE REFERENCE UNITS LAB L300.4700 High 203-444 mg/dl FIB 647 Performed By: #### L100.0500, L300.3900, L300.4310, L300.4700 ####[facility] [address] [place], [address] HOSP Observed: 03/01/2017 Status: COMPLETED Source: JONES 10:40 AM [facility] REPOSITORY Routine Office Visit (WOOB) -------CEDRIC HARMAN ([id number]) 1995 FDate Time Provider Department03/01/17 10:40 AM DANA PINA WOALYCIA During your visit today, we recorded the following information about you: Blood pressure Weight 122/72 110.2 kgJenny Kelley Ma 03/01/2017 10:47 AM SignedSEQUENTIAL SCREENINGSThe [facility] offers sequential screenings for women who are interestedin screenings for chromosomal abnormalities and certain defects during apregnancy. The sequential screen combines ultrasound and blood tests todetermine the risk of chromosomal abnormalities, including Down's Syndrome( Trisomy 21) and Trisomy 18, as well as open neural tube defects includingspina bifida. Ultrasound examination is performed between 11 weeks and 13 weeksgestational age. Blood tests are drawn after the ultrasound and again later inthe between 15 and 21 weeks gestational age. Please let yourphysician know if you are interested in this testing. It will require anappointment with our medical imaging technician. This is not an ultrasound performedby a physician in our office during a routine visit.SIGNS AND SYMPTOMS OF LABOR1. Contractions every 10 minutes or more often2. Clear, pink, or brownish fluid (water) leaking from vagina3. Feeling that baby is pushing down, pressure4. Low, dull backache5. Cramps that feel like a period6. Cramps with or without diarrheaIf you notice any of the above symptoms, contact our office at [phone] andask to speak with a nurse.After hours, you can call doctors registry at [phone] OR [facility] at [phone] and ask to have the doctor communications tech paged.If you consider this an emergency, dial 9--8 or go to your nearest emergencydepartment.NEED HELP? Are you dealing with a violent or abusive relationship? Are you avictim of rape or sexual assult? Call [facility] ([place]) 24 hourCrisis Hotline: 482.961.6284 or 113-574- 3655. MANUALYour Guide to a Healthy manual is now on-line. [email or web address]/ HealthyPregnancyGuide to download your free copyReferring Provider: GABRIELA OLIVA [[id number]] Allergies As of Date: 03/01/2017(No Known Allergies)Date Reviewed: 03/01/2017Reviewed by: Jenny Kelley Ma - Fully AssessedReason for Visit: Care [86]Primary Visit Diagnosis: Supervision of high risk in third trimester [O09.93] Other Visit Diagnosis:34 weeks gestation of [Z3A.34]Order(s):URINE OB DIP B/O [[id number]] Order #: [id number] as of 03/01/2017 Sig: FAMOTIDINE 20 MG TABLET Take 1 tablet by mouth twice * CYCLOBENZAPRINE 5 MG TABLET Take 1 tablet by mouth three * SERTRALINE 50 MG TABLET Take 1 tablet by mouth once d* PRE-JUSTINA MULTIVITAMINS/MINERAL* Take by mouth.Problem List As Of Date 03/01/2017 Noted Resolved control counseling [ Z30.09] INVALID FOR*09/28/2016 Sore throat [J02.9] INVALID FOR*09/28/2016 More... Odynophagia [R13.10] INVALID FOR* More... Spotting in [O26.859] INVALID FOR*09/28/2016 More... History of depression [Z86.59] INVALID FOR* More... Family history of defects [ Z82.79] INVALID FOR* More... Obesity in [O99.210] INVALID FOR* More... Supervision of high risk due to socia*INVALID FOR* More... Chlamydia infection affecting [O98.31*INVALID FOR* More... Other instructions from your clinician: SEQUENTIAL SCREENINGS [facility] offers sequential screenings for women who are interested in screenings for chromosomal abnormalities and certain defects during a . The sequential screen combines ultrasound and blood tests to determine the risk of chromosomal abnormalities, including Down's Syndrome (Trisomy 21) and Trisomy 18, as well as open neural tube defects including spina bifida. Ultrasound examination is performed between 11 weeks and 13 weeks gestational age. Blood tests are drawn after the ultrasound and again later in the between 15 and 21 weeks gestational age. Please let your physician know if you are interested in this testing. It will require an appointment with our medical imaging technician. This is not an ultrasound performed by a physician in our office during a routine visit. SIGNS AND SYMPTOMS OF LABOR 1. Contractions every 10 minutes or more often 2. Clear, pink, or brownish fluid (water) leaking from vagina 3. Feeling that baby is pushing down, pressure 4. Low, dull backache 5. Cramps that feel like a period 6. Cramps with or without diarrhea If you notice any of the above symptoms, contact our office at [phone] and ask to speak with a nurse. After hours, you can call doctors registry at [phone] OR call [facility] at [phone] and ask to have the doctor communications tech paged. If you consider this an emergency, dial 9--1 or go to your nearest emergency department. NEED HELP? Are you dealing with a violent or abusive relationship? Are you a victim of rape or sexual assult? Call [facility] ([place]) 24 hour Crisis Hotline: 405.341.2618 or 278-781-4766. MANUAL Your Guide to a Healthy manual is now on-line. Visit [email or web address]/[email or web address] to download your free copyDisposition: Return in about 2 weeks (around 03/15/2017).Follow-up and Disposition History RecordedEncounter Number: [id number] Status:Closed by DANA WASHINGTON MD on 03/01/17 PROGRESS Observed: 02/23/2017 Status: COMPLETED Source: [place] 4:54 PM [facility] REPOSITORY HNO ID: [id number]: Massimo Mckeonice: (none) Author Type: PhysicianType: Progress NotesFiled: 02/24/2017 6:32 AMNote Text:Patient presents with:Mouth Sores: nausea, headache, chills x couple daysHPI:Feeling sick for 3 days. Currently 33 weeks .Positive symptoms: Chills, Headache, nausea, mouth sores, intermittentCough,Negative symptoms: Rhinorrhea, Fever, diarrheaOTC: TylenolMEDICATIONS:Current Outpatient Prescriptions:famotidine (PEPCID) 20 mg tablet Take 1 tablet by mouth twice daily asneeded.cyclobenzaprine (FLEXERIL) 5 mg tablet Take 1 tablet by mouth three timesdaily as needed.sertraline (ZOLOFT) 50 mg tablet Take 1 tablet by mouth once daily.PNV/IRON,CARB/OM-3/FA/FAT 1 (PRE-JUSTINA MULTIVITAMINS/MINERALS ORAL) Take bymouth.No current facility-administered medications for this visit.ALLERGIES:ALLERGIESNo Known AllergiesVITALS:BP 128/ 72 Pulse 80 Temp 37.2 ?C (99 ?F) (Tympanic) Resp 18 Wt108.9 kg (240 lb) LMP 07/06/2016 (Exact Date) BMI 43.2 kg/r4LFBRFKRE EXAM: GEN: mildly ill appearing HEENT: PERRL, EOMI, conjunctiva clear Ears: canals clear, TMs without erythema, bulge, or effusion Sinuses: non-tender maxillary sinuses, non-tender frontal sinus Throat: moist mucous membranes, few small petechia on the palate, noexudate Neck: supple, no thyromegaly, no lymphadenopathy HEART: regular rate and rhythm, no murmurs LUNGS: clear to auscultation, no wheezes or crackles , no increased WOBASSESSMENT/PLAN:1. Sore throat - ICD9: 462, ICD10: J02.9- suspect viral- Rapid Strep negative in the office today- RAPID STREP TEST B/OContinue supportive care.Massimo Sims MD CNOV Observed: 02/23/2017 Status: COMPLETED Source: J[place] 4:30 PM [facility] REPOSITORY Office Visit (UCWSTR) ---------CEDRIC HARMAN ([id number]) 1995 FDate Time Provider Department02/23/17 4:30 PM MASSIMO SIMS UCWSTR During your visit today, we recorded the following information about you: Temperature Pulse Respiration Blood pressure 99 degrees 80/minute 18/minute 128/72 Weight 108.9 kgMassimo Sims MD 02/24/2017 6:32 AM SignedPatient presents with:Mouth Sores: nausea, headache, chills x couple daysHPI:Feeling sick for 3 days. Currently 33 weeks .Positive symptoms : Chills, Headache, nausea, mouth sores, intermittent Cough,Negative symptoms: Rhinorrhea, Fever, diarrheaOTC: TylenolMEDICATIONS:Current Outpatient Prescriptions:famotidine (PEPCID) 20 mg tablet Take 1 tablet by mouth twice daily as needed.cyclobenzaprine (FLEXERIL) 5 mg tablet Take 1 tablet by mouth three times dailyas needed.sertraline (ZOLOFT) 50 mg tablet Take 1 tablet by mouth once daily.PNV/IRON,CARB/OM-3/FA/FAT 1 (PRE-JUSTINA MULTIVITAMINS/MINERALS ORAL) Take bymouth.No current facility-administered medications for this visit.ALLERGIES:ALLERGIESNo Known AllergiesVITALS:BP 128/72 Pulse 80 Temp 37.2 ?C (99 ?F) (Tympanic) Resp 18 Wt 108.9 kg(240 lb) LMP 07/06/2016 (Exact Date) BMI 43.2 kg/x6EXYRFASN EXAM: GEN: mildly ill appearing HEENT: PERRL, EOMI, conjunctiva clear Ears: canals clear, TMs without erythema, bulge, or effusion Sinuses: non- tender maxillary sinuses, non-tender frontal sinus Throat: moist mucous membranes, few small petechia on the palate, noexudate Neck: supple, no thyromegaly, no lymphadenopathy HEART: regular rate and rhythm, no murmurs LUNGS: clear to auscultation, no wheezes or crackles, no increased WOBASSESSMENT/PLAN:1. Sore throat - ICD9: 462, ICD10: J02.9- suspect viral- Rapid Strep negative in the office today- RAPID STREP TEST B/OContinue supportive care.Massimo Sims, [facility]ITALeferring Provider: SELF [200]Allergies As of Date: 02/23/2017(No Known Allergies)Date Reviewed: 02/23/2017Reviewed by: Michelle Redman Ma - Fully AssessedReason for Visit: Mouth Sores [839] Cmt: nausea, headache, chills x couple daysPrimary Visit Diagnosis:Sore throat [J02.9]Order(s):RAPID STREP TEST B/O [[id number]] Order #: [id number] as of 02/23/2017 Sig: FAMOTIDINE 20 MG TABLET Take 1 tablet by mouth twice * CYCLOBENZAPRINE 5 MG TABLET Take 1 tablet by mouth three * SERTRALINE 50 MG TABLET Take 1 tablet by mouth once d* PRE-JUSTINA MULTIVITAMINS/MINERAL* Take by mouth.Problem List As Of Date 02/23/2017 Noted Resolved control counseling [ Z30.09] INVALID FOR*09/28/2016 Sore throat [J02.9] INVALID FOR* More... Odynophagia [R13.10] INVALID FOR* More... Spotting in [O26.859] INVALID FOR*09/28/2016 More... History of depression [ Z86.59] INVALID FOR* More... Family history of defects [Z82.79] INVALID FOR* More... Obesity in [O99.210] INVALID FOR* More... Supervision of high risk due to socia*INVALID FOR* More... Chlamydia infection affecting [O98.31*INVALID FOR* More... Status:Closed by MASSIMO SIMS MD on 02/24/17 PROGRESS Observed: 02/14/2017 Status: COMPLETED Source: J[place] 4:24 PM [facility] REPOSITORY HNO ID: [id number]: Timur Jennings) Cooper: (none)Author Type: MidwifeType: Progress NotesFiled: 02/14/2017 4:25 PMNote Text:S: Cedric Harman presents for a routine OB visit at 31w6d. Shedenies LOF, VB , DFM or cramping/contractions.O: See flow sheetA/P: 31w6d IUP. Obesity (BMI> 40). RTO 2 Weeks for follow up. Callwith LOF, VB, DFM or cramping/contractions.1. 31 weeks gestation of - URINE OB DIP B/O(aka UA CHEMSTRIP) [[id number]]2. High-risk , third trimester3. Obesity in BMI=42Renee Gerry MEAT INSPECTOR InternSuwood Santillan CNM HOSP Observed: 02/14/2017 Status: COMPLETED Source: [place] 1:45 PM [facility] REPOSITORY Routine Office Visit (WOOB) -------CEDRIC HARMAN ([id number]) 1995 [facility] Time Provider Department02/14/17 1:45 PM TIMUR SANTILLAN) WOOB During your visit today, we recorded the following information about you: Blood pressure Weight 122/70 107.4 kgTavony Rula Felix 02/14/2017 1:51 PM SignedSEQUENTIAL SCREENINGSThe [facility] offers [facility] screenings for women who are interestedin screenings for chromosomal abnormalities and certain defects during apregnancy. The sequential screen combines ultrasound and blood tests todetermine the risk of chromosomal abnormalities, including Down's Syndrome( Trisomy 21) and Trisomy 18, as well as open neural tube defects includingspina bifida. Ultrasound examination is performed between 11 weeks and 13 weeksgestational age. Blood tests are drawn after the ultrasound and again later inthe between 15 and 21 weeks gestational age. Please let yourphysician know if you are interested in this testing. It will require anappointment with our medical imaging technician. This is not an ultrasound performedby a physician in our office during a routine visit.SIGNS AND SYMPTOMS OF LABOR1. Contractions every 10 minutes or more often2. Clear, pink, or brownish fluid (water) leaking from vagina3. Feeling that baby is pushing down, pressure4. Low, dull backache5. Cramps that feel like a period6. Cramps with or without diarrheaIf you notice any of the above symptoms, contact our office at [phone] andask to speak with a nurse.After hours, you can call doctors registry at [phone] OR call [facility] at [phone] and ask to have the doctor communications tech paged.If you consider this an emergency, dial 4-4-1 or go to your nearest emergencydepartment.NEED HELP? Are you dealing with a violent or abusive relationship? Are you avictim of rape or sexual assult? Call [facility] ([place]) 24 hourCrisis Hotline: 865.631.2650 or 040-314- 8138. MANUALYour Guide to a Healthy manual is now on-line. [email or web address]/ HealthyPregnancyGuide to download your free copyTimur Santillan CNM 02/14/2017 4:25 PM SignedS: Cedric Harman presents for a routine OB visit at 31w6d. She deniesLOF, VB, DFM or cramping/contractions.O : See flow sheetA/P: 31w6d IUP. Obesity (BMIANDgt;40). RTO 2 Weeks for follow up. Call withLOF , VB, DFM or cramping/contractions.1. 31 weeks gestation of - URINE OB DIP B/O(aka UA CHEMSTRIP) [[id number]]2. High-risk , third trimester3. Obesity in BMI= 42Susie OrtegaSuSOUMYA Lanehealth[facility] Provider: GABRIELA OLIVA [[id number]] Allergies As of Date: 02/14/2017(No Known Allergies)Date Reviewed: 02/14/2017Reviewed by: Susie Garrett Superintendent Of Generation - Fully AssessedReason for Visit: Care [86]Primary Visit Diagnosis:31 weeks gestation of [Z3A.31] Other Visit Diagnoses:High-risk , third trimester [O09.93] Obesity complicating , third trimester [O99.213 ]Order(s):URINE OB DIP B/O [[id number]] Order #: [id number] as of 02/14/2017 Sig: FAMOTIDINE 20 MG TABLET Take 1 tablet by mouth twice * CYCLOBENZAPRINE 5 MG TABLET Take 1 tablet by mouth three * SERTRALINE 50 MG TABLET Take 1 tablet by mouth once d* PRE-JUSTINA MULTIVITAMINS/MINERAL* Take by mouth.Problem List As Of Date 02/14/2017 Noted Resolved control counseling [Z30.09] INVALID FOR*09/28/2016 Sore throat [J02.9] INVALID FOR*09/28/2016 More... Odynophagia [R13.10] INVALID FOR* More... Spotting in [O26.859] INVALID FOR*2016 More... History of depression [Z86.59] INVALID FOR* More... Family history of defects [Z82.79] INVALID FOR* More... Obesity in [O99.210] INVALID FOR* More... Supervision of high risk due to socia*INVALID FOR* More... Chlamydia infection affecting [O98.31*INVALID FOR* More... Other instructions from your clinician: SEQUENTIAL SCREENINGS [facility] offers sequential screenings for women who are interested in screenings for chromosomal abnormalities and certain defects during a . The sequential screen combines ultrasound and blood tests to determine the risk of chromosomal abnormalities, including Down's Syndrome (Trisomy 21) and Trisomy 18, as well as open neural tube defects including spina bifida. Ultrasound examination is performed between 11 weeks and 13 weeks gestational age. Blood tests are drawn after the ultrasound and again later in the between 15 and 21 weeks gestational age. Please let your physician know if you are interested in this testing. It will require an appointment with our medical imaging technician. This is not an ultrasound performed by a physician in our office during a routine visit. SIGNS AND SYMPTOMS OF LABOR 1. Contractions every 10 minutes or more often 2. Clear, pink, or brownish fluid (water) leaking from vagina 3. Feeling that baby is pushing down, pressure 4. Low, dull backache 5. Cramps that feel like a period 6. Cramps with or without diarrhea If you notice any of the above symptoms, contact our office at [phone] and ask to speak with a nurse. After hours, you can call doctors registry at [phone] OR call [facility] at [phone] and ask to have the doctor communications tech paged. If you consider this an emergency, dial 3-0-9 or go to your nearest emergency department. NEED HELP? Are you dealing with a violent or abusive relationship? Are you a victim of rape or sexual assult? Call [facility] ([place]) 24 hour Crisis Hotline: 301.779.6793 or 978-243-0947. MANUAL Your Guide to a Healthy manual is now on-line. Visit [email or web address]/ HealthyPregnancyGuide to download your free copyDisposition: Return in about 2 weeks (around 2016), or if symptoms worsen or fail to improve, for OB visit.Follow-up and Disposition History RecordedEncounter Number: [id number] Status:Closed by TIMUR SANTILLAN CNM on 02/14/17 PROGRESS Observed: 02/02/2017 Status: COMPLETED Source: [facility] 9:11 AM [facility] RE[facility] HNO ID: [id number]: Filiberto Boyd RNService: (none) Author Type: (none)Type: Progress NotesFiled: 02/02/2017 9:13 AMNote Text: CLASS Date Attended: January 31, 2017Introduction Credentials Expectations of a 4-hour class 1. Review of handouts 2. Hospital tour info 3. Baby care classStages of labor videoStages to call the doctor 1. SROM 2. Cervical changes 3. Bleeding vs. bloody show 4. Decreased movementHospital Procedures 1. Internal/external monitors 2. IV therapy 3. AROM 4. PitocinPain Management 1. Epidural 2. Other pain medications 3. No medicinal comfort measures 4. Breathing/pushingDelivery methods 1. C- section 2. Forceps 3. Vacuum extractorPhysician presentations 1. OB-retail account executive 2. PediatricianPostpartum 1. Mom's first hour 2. baby's first hour 3. baby's discharge protocolCompleted childbirth education class. Filiberto Boyd RN CNCNPATED Observed: 02/02/2017 Status: COMPLETED Source: [place] 12:00 AM [facility] REPOSITORY Education (WOOB) -------CEDRIC HARMAN ([id number]) 1995 [facility] Time Provider Department02/02/17 [facility] WOOBReason for Visit : Class [4072]Progress Notes:Filiberto Boyd RN 02/02/2017 9:13 AM Signed CLASS Date Attended: January 31, 2017Introduction Credentials Expectations of a 4-hour class 1. Review of handouts 2. Hospital tour info 3. Baby care classStages of labor videoStages to call the doctor 1. SROM 2. Cervical changes 3. Bleeding vs. bloody show 4. Decreased movementHospital Procedures 1. Internal/external monitors 2. IV therapy 3. AROM 4. PitocinPain Management 1. Epidural 2. Other pain medications 3. No medicinal comfort measures 4. Breathing/pushingDelivery methods 1. 2. Forceps 3. Vacuum extractorPhysician presentations 1. OB-retail account executive 2. PediatricianPostpartum 1. Mom's first hour 2. baby's first hour 3. baby's discharge protocolCompleted childbirth education class. Filiberto Boyd RN During your visit today, we recorded the following information about you: Allergies As of Date: 02/02/2017(No Known Allergies)Date Reviewed: 02/01/2017Reviewed by: Lisa Yarbrough Ma - Fully AssessedPrescriptions as of 02/02/2017 Sig: FAMOTIDINE 20 MG TABLET Take 1 tablet by mouth twice * CYCLOBENZAPRINE 5 MG TABLET Take 1 tablet by mouth three * SERTRALINE 50 MG TABLET Take 1 tablet by mouth once d* PRE-JUSTINA MULTIVITAMINS/MINERAL * Take by mouth. Status:Closed by FILIBERTO BOYD RN on 02/02/17 100G, 3HR GEST. Collected: 02/01/2017 Status: F Source: JONES OGTT 10:14 AM [facility] REPOSITORY TYPE CODE TESTS RESULT OUT OF REFERENCE UNITS RANGE LAB GTG0 <95 mg/dL Glucose 74 GST,Fasting LAB GTG1 <180 mg/dL Glucose 145 GST, 1 Hr LAB GTG2 <155 mg/dL Glucose 124 GST, 2 Hr LAB GTG3 <140 mg/dL Glucose 119 GST, 3 Hr Performed By: #### GTGST3 ####[facility] [address] [place], [place] [id number] [facility] Observed: 02/01/2017 Status: COMPLETED Source: JONES 9:20 AM [facility] REPOSITORY Routine Office Visit (WOOB) -------CEDRIC HARMAN ([id number]) 1995 [facility] Time Provider Department02/01/17 9:20 AM BUSHRA WHITE During your visit today, we recorded the following information about you: Blood pressure Weight 110/74 106.8 kgLisa Yarbrough Ma 02/01/2017 9:22 AM SignedSEQUENTIAL SCREENINGSThe [facility] offers [facility] screenings for women who are interestedin screenings for chromosomal abnormalities and certain defects during apregnancy. The sequential screen combines ultrasound and blood tests todetermine the risk of chromosomal abnormalities, including Down's Syndrome( Trisomy 21) and Trisomy 18, as well as open neural tube defects includingspina bifida. Ultrasound examination is performed between 11 weeks and 13 weeksgestational age. Blood tests are drawn after the ultrasound and again later inthe between 15 and 21 weeks gestational age. Please let yourphysician know if you are interested in this testing. It will require anappointment with our medical imaging technician. This is not an ultrasound performedby a physician in our office during a routine visit.SIGNS AND SYMPTOMS OF LABOR1. Contractions every 10 minutes or more often2. Clear, pink, or brownish fluid (water) leaking from vagina3. Feeling that baby is pushing down, pressure4. Low, dull backache5. Cramps that feel like a period6. Cramps with or without diarrheaIf you notice any of the above symptoms, contact our office at [phone] andask to speak with a nurse.After hours, you can call doctors registry at [phone] OR call [facility] at [phone] and ask to have the doctor communications tech paged.If you consider this an emergency, dial 6-4-5 or go to your nearest emergencydepartment.NEED HELP? Are you dealing with a violent or abusive relationship? Are you avictim of rape or sexual assult? Call [facility] ([place]) 24 hourCrisis Hotline: 996.340.1581 or 128-558- [phone]. MANUALYour Guide to a Healthy manual is now on-line. [email or web address]/ HealthyPregnancyGuide to download your free copyReferring Provider: GABRIELA OLIVA [[id number]] Allergies As of Date: 02/01/2017(No Known Allergies)Date Reviewed: 02/01/2017Reviewed by: Lisa Yarbrough Ma - Fully AssessedReason for Visit: Care [86]Primary Visit Diagnosis:Encounter for supervision of normal first in third trimester [Z34.03] Other Visit Diagnosis:30 weeks gestation of [Z3A.30]Order(s):URINE OB DIP B/O [[id number]] Order #: [id number] as of 02/01/2017 Sig: FAMOTIDINE 20 MG TABLET Take 1 tablet by mouth twice * CYCLOBENZAPRINE 5 MG TABLET Take 1 tablet by mouth three * SERTRALINE 50 MG TABLET Take 1 tablet by mouth once d* PRE-JUSTINA MULTIVITAMINS/MINERAL * Take by mouth.Problem List As Of Date 02/01/2017 Noted Resolved control counseling [Z30.09] INVALID FOR*09/28/2016 Sore throat [J02.9] INVALID FOR*09/28/2016 More... Odynophagia [R13.10] INVALID FOR* More... Spotting in [O26.859] INVALID FOR*09/28/2016 More... History of depression [Z86.59] INVALID FOR* More... Family history of defects [Z82.79] INVALID FOR* More... Obesity in [O99.210] INVALID FOR* More... Supervision of high risk due to socia*INVALID FOR* More... Chlamydia infection affecting [O98.31*INVALID FOR* More... Other instructions from your clinician: SEQUENTIAL SCREENINGS [facility] offers sequential screenings for women who are interested in screenings for chromosomal abnormalities and certain defects during a . The sequential screen combines ultrasound and blood tests to determine the risk of chromosomal abnormalities, including Down's Syndrome (Trisomy 21) and Trisomy 18, as well as open neural tube defects including spina bifida. Ultrasound examination is performed between 11 weeks and 13 weeks gestational age. Blood tests are drawn after the ultrasound and again later in the between 15 and 21 weeks gestational age. Please let your physician know if you are interested in this testing. It will require an appointment with our medical imaging technician. This is not an ultrasound performed by a physician in our office during a routine visit. SIGNS AND SYMPTOMS OF LABOR 1. Contractions every 10 minutes or more often 2. Clear, pink, or brownish fluid (water) leaking from vagina 3. Feeling that baby is pushing down, pressure 4. Low, dull backache 5. Cramps that feel like a period 6. Cramps with or without diarrhea If you notice any of the above symptoms, contact our office at [phone] and ask to speak with a nurse. After hours, you can call doctors registry at [phone] OR call [facility] at [phone] and ask to have the doctor communications tech paged. If you consider this an emergency, dial 5-8-0 or go to your nearest emergency department. NEED HELP? Are you dealing with a violent or abusive relationship? Are you a victim of rape or sexual assult? Call [facility] ([place]) 24 hour Crisis Hotline: 817.705.2498 or 992-335-7716. MANUAL Your Guide to a Healthy manual is now on-line. Visit [email or web address]/ HealthyPregnancyGuide to download your free copyEncounter Number: [id number] Status:Closed by BUSHRA WHITE MD on 02/01/17 CBC AND DIFFERENTIAL Collected: 01/19/2017 Status: F Source: [facility] 11:45 AM [facility] REPOSITORY TYPE CODE TESTS RESULT OUT OF REFERENCE UNITS RANGE LAB WBC High 3.70-11.00 k/uL WBC 11.77 LAB RBC Low 3.90-5.20 m/uL RBC 3.81 LAB HGB Low 11.5-15.5 g/dL Hemoglobin 11.1 LAB HCT Low 36.0-46.0 % Hematocrit 35.6 LAB MCV 80.0-100.0 fL MCV 93.4 LAB MCH 26.0-34.0 pG MCH 29.1 LAB MCHC 30.5-36.0 g/dL MCHC 31.2 LAB RDWCV 11.5-15.0 % RDW-CV 14.8 LAB PLTCT 150-400 k/uL Platelet 186 Count LAB MPV 9.0-12.7 fL MPV 12.2 LAB ANEUT % Neut% 79.7 LAB AANEUT High 1.45-7.50 k/uL Abs Neut 9.39 LAB ALYMP % Lymph% 15.0 LAB AALYMP 1.00-4.00 k/uL Abs Lymph 1.77 LAB AMONO % Brewster% 3.7 LAB AAMONO 0.00-0.86 k/uL Abs Brewster 0.43 LAB AEOS % Eosin% 1.4 LAB AAEOS 0.00-0.45 k/uL Abs Eosin 0.16 LAB ABASO % Baso% 0.2 LAB AABASO 0.00-0.10 k/uL Abs Baso 0.02 LAB AUNRBC 0 /100 WBC NRBCs 0.0 LAB NRBC 0 /100 WBC NRBCs 0 LAB ABNRBC k/uL Absolute nRBC 0.00 LAB DTYP DTYPE Auto Diff Performed By: #### CBCDIF ####[facility], [place] [id number] 50G, 1HR GEST. Collected: 01/19/2017 Status: F Source: JONES GSCRN 11:45 AM [facility] REPOSITORY TYPE CODE TESTS RESULT OUT OF REFERENCE UNITS RANGE LAB GLUP High <135 mg/dL Glucose 145 Screen, Preg Performed By: #### GLTGST ####[facility], [place] [phone] HOSP Observed: 01/19/2017 Status: COMPLETED Source: JONES 10:40 AM [facility] REPOSITORY Routine Office Visit (WOOB) -------CEDRIC HARMAN ([id number]) [address] [facility] Time Provider Department01/19/17 10:40 AM ALEXANDRE WATTERS WOOB During your visit today, we recorded the following information about you: Blood pressure Weight 108/72 104.3 kgJennifer Khushbu TAYLOR 01/19/2017 10:46 AM SignedSEQUENTIAL SCREENINGSThe [facility] offers sequential screenings for women who are interestedin screenings for chromosomal abnormalities and certain defects during apregnancy. The sequential screen combines ultrasound and blood tests todetermine the risk of chromosomal abnormalities, including Down's Syndrome(Trisomy 21) and Trisomy 18 , as well as open neural tube defects includingspina bifida. Ultrasound examination is performed between 11 weeks and 13 weeksgestational age. Blood tests are drawn after the ultrasound and again later inthe between 15 and 21 weeks gestational age. Please let yourphysician know if you are interested in this testing. It will require anappointment with our medical imaging technician. This is not an ultrasound performedby a physician in our office during a routine visit.SIGNS AND SYMPTOMS OF LABOR1. Contractions every 10 minutes or more often2. Clear, pink, or brownish fluid ( water) leaking from vagina3. Feeling that baby is pushing down, pressure4. Low, dull backache5. Cramps that feel like a period6. Cramps with or without diarrheaIf you notice any of the above symptoms , contact our office at [phone] andask to speak with a nurse.After hours, you can call doctors registry at [phone] OR call [facility] at [phone] and ask to have the doctor communications tech paged.If you consider this an emergency, dial [phone] or go to your nearest emergencydepartment.NEED HELP? Are you dealing with a violent or abusive relationship? Are you avictim of rape or sexual assult? Call [facility] ([place]) 24 hourCrisis Hotline: 791.278.3274 or 347-865-8952. MANUALYour Guide to a Healthy manual is now on-line. [facility]/ HealthyPregnancyGuide to download your free copyReferring Provider: GABRIELA OLIVA [[id number]]Allergies As of Date: (No Known Allergies)Date Reviewed: 01/19/2017Reviewed by: Gabriela Ríos RN - Fully AssessedReason for Visit: Care [86]Primary Visit Diagnosis:Encounter for supervision of other normal [Z34.80] Other Visit Diagnoses:28 weeks gestation of [ Z3A.28] Need for Tdap vaccination [Z23]Order(s):URINE OB DIP B/O [[id number]] Order #: [id number] CBC + DIFF [SQCBCDIF] Order #: [id number] FUTURE GEST GLUC SCREEN, 1- HR, 50 GM, NON-FASTING [SQGLTGST] Order #: [id number] FUTURE TDAP VACCINE AGE 7+ IM [ 09477CEY] Order #: [id number] as of 01/19/2017 Sig: FAMOTIDINE 20 MG TABLET Take 1 tablet by mouth twice * CYCLOBENZAPRINE 5 MG TABLET Take 1 tablet by mouth three * SERTRALINE 50 MG TABLET Take 1 tablet by mouth once d* PRE-JUSTINA MULTIVITAMINS/MINERAL * Take by mouth.Problem List As Of Date 01/19/2017 Noted Resolved control counseling [Z30.09] INVALID FOR*09/28/2016 Sore throat [J02.9] INVALID FOR*09/28/2016 More... Odynophagia [R13.10] INVALID FOR* More... Spotting in [O26.859] INVALID FOR*09/28/2016 More... History of depression [Z86.59] INVALID FOR* More... Family history of defects [Z82.79] INVALID FOR* More... Obesity in [O99.210] INVALID FOR* More... Supervision of high risk due to socia*INVALID FOR* More... Chlamydia infection affecting [O98.31*INVALID FOR* More... Other instructions from your clinician: SEQUENTIAL SCREENINGS [facility] offers sequential screenings for women who are interested in screenings for chromosomal abnormalities and certain defects during a . The sequential screen combines ultrasound and blood tests to determine the risk of chromosomal abnormalities, including Down's Syndrome (Trisomy 21) and Trisomy 18, as well as open neural tube defects including spina bifida. Ultrasound examination is performed between 11 weeks and 13 weeks gestational age. Blood tests are drawn after the ultrasound and again later in the between 15 and 21 weeks gestational age. Please let your physician know if you are interested in this testing. It will require an appointment with our medical imaging technician. This is not an ultrasound performed by a physician in our office during a routine visit. SIGNS AND SYMPTOMS OF LABOR 1. Contractions every 10 minutes or more often 2. Clear, pink, or brownish fluid (water) leaking from vagina 3. Feeling that baby is pushing down, pressure 4. Low, dull backache 5. Cramps that feel like a period 6. Cramps with or without diarrhea If you notice any of the above symptoms, contact our office at [phone] and ask to speak with a nurse. After hours, you can call doctors registry at [phone] OR call [facility] at [phone] and ask to have the doctor communications tech paged. If you consider this an emergency, dial 1-8-6 or go to your nearest emergency department. NEED HELP? Are you dealing with a violent or abusive relationship? Are you a victim of rape or sexual assult? Call [facility] ([place]) 24 hour Crisis Hotline: 184.396.8019 or 481-500-4960. MANUAL Your Guide to a Healthy manual is now on-line. Visit [facility].org/ HealthyPregnancyGuide to download your free copyDisposition: Return in about 2 weeks (around 2016) for routine OB check.Follow-up and Disposition History RecordedEncounter Number : [id number] Status:Closed by JANUARY FLORES MA on 01/19/17 ALLERGIES ALLERGIES DATE TYPE / CODE NAME / CODE REACTION SEVERITY SOURCE 01/14/2018 Drug No Known Unknown [facility] Allergy/416 Allergies/[address] 437022(SNOM 0388(RXNORM) Repository ED CT) 04/11/2017 Drug No Known [facility] Allergy/416 Allergies/J56377 [facility] 931592(SNOM 0388(RXNORM) Repository ED CT) Drug NO KNOWN [facility] Class/85110 ALLERGIES [facility] 1003(SNOMED Repository CT) ENCOUNTERS ENCOUNTERS ADMIT/DISCHARGE ACCOUNT ADMITTING ENCOUNTER LOCATION SOURCE NUMBER CLASS 01/14/2018 [id number] Emergency [facility] ing:ED Repository 11/29/2017/11/30/19 [id number] [facility] [address] Repository 11/20/2017/11/21/19 [id number] Emergency [address] ing:ED Repository 11/05/2017/11/06/19 [id number] Emergency [address] ing:ED Repository 10/28/2017/10/29/19 [id number] Emergency [address] ing:ED Repository 10/23/2017/10/26/19 [id number] Ambulatory [address] Repository 10/19/2017/10/20/19 [id number] Ambulatory BMSBuilding:B Christ[place] [address].NOW [facility] Hospital Repository 10/09/2017/10/10/19 [id number] Emergency [address] Hospital ing:ED Repository 09/19/2017 [id number] Ambulatory [facility] Hospital ing:MFPLAB Repository 09/16/2017/09/18/19 [id number] Emergency [address]el[address] Hospital ing:ED Repository 08/04/2017/08/04/19 [id number] Ambulatory BMSBuilding:B Christel [address].NOW [facility] Hospital Repository 08/01/2017 [id number] Ambulatory [facility] Hospital ing:MFPLAB Repository 07/13/2017/07/13/20 [id number] Ambulatory BMSBuilding:B Christel [facility] Hospital Repository 06/19/2017 [id number] Ambulatory [facility] Hospital ing:LABSPEC Repository 06/19/2017/06/19/20 [id number] Ambulatory BMSBuilding:B Christel 17 [place].NOW [facility] Hospital Repository 06/01/2017/06/03/20 [id number] Ambulatory [address] Repository 05/27/2017/05/31/20 [id number] Ambulatory [address] Repository 05/20/2017 [id number] Ambulatory [facility] Hospital ing:MFPLAB Repository 05/09/2017/05/17/20 [id number] Ambulatory [address] Repository 05/09/2017/05/11/20 [id number] Ambulatory [address] Repository 05/09/2017/05/10/20 [id number] Ambulatory [address] Repository 04/27/2017/04/29/20 [id number] Ambulatory [address] Repository 04/21/2017 [id number] Ambulatory [facility] Repository 04/19/2017/04/20/20 [id number] Ambulatory [address] Repository 04/11/2017/04/15/20 [id number] NeyJr Inpatient [place] [address], [facility] ing:WPRoom: Repository MG945Wah: 1 04/11/2017 [id number] Ambulatory [facility] [place] Repository 04/11/2017/04/12/20 [id number] Ambulatory [address] [place] Repository 04/10/2017/04/10/20 [id number] Ambulatory [place] ing:WPOUTRoom Repository : WP011 04/08/2017/04/12/20 [id number] Ambulatory [address] Main [place] Repository 04/06/2017/04/07/20 [id number] Ambulatory [address] Repository 04/05/2017/04/05/20 [id number] Ambulatory Christel [address] ing:WPOUTRoom Repository : WP021 04/05/2017/04/05/20 [id number] Ambulatory [address] Repository 04/03/2017/04/03/20 [id number] Ambulatory [place] [address] [place] [address] ing:WPOUTRoom Repository : WP020 04/03/2017/04/05/20 [id number] Ambulatory [address] [place] Repository 03/30/2017/03/30/20 [id number] Ambulatory [place] Christel[address] ing:WPOUTRoom Repository : WP016 03/30/2017/03/31/20 [id number] Ambulatory [address] Repository 03/25/2017 [id number] [facility] Rep[facility] 03/23/2017/03/23/20 [id number] Ambulatory [address] Main [place] Repository 03/15/2017/03/18/20 [id number] Ambulatory [address] Main [place] Repository 03/06/2017/03/06/20 [id number] Ambulatory [place] ing:WPOUTRoom Repository : WP015 03/04/2017/03/04/20 [id number] Emergency [place] [address] ing:ED Repository 03/04/2017/03/04/20 [id number] Ambulatory Christel Christel [address] [place] [address] ing:WPOUTRoom Repository : WP012 03/01/2017/03/01/20 [id number] Ambulatory [address] Repository 02/23/2017/02/25/20 [id number] Ambulatory [address] Repository 02/14/2017/02/19/20 [id number] Ambulatory [address] Repository 02/01/2017/02/02/20 [id number] Ambulatory [address] Repository 02/01/2017/02/03/20 [id number] Ambulatory [address] Repository 01/31/2017/02/03/20 [id number] Ambulatory [address] Repository 01/19/2017 [id number] Ambulatory [facility] Repository 01/19/2017/01/21/20 [id number] Ambulatory [address] Repository PAYERS PAYERS ENCOUNTER GUARANTOR PAYER SUBSCRIBER SOURCE 01/14/2018 CEDRIC Mejia Primary CEDRIC R Christel [id number] Insurance:CARESOJustice HOUSEB: [facility] Number: [id number], [place] [id number] Repository [address]Mdl: 330) Date:2018-01-14[phone] (TS) 6228ATTN: [place] [address]KL: 01/14/2018 Secondary MARGARET WILLIAMSUNK [place] Insurance:[facility] Number: Repository [id number] Date:6143-26-03LH [address] [place] [address]UP: 01/14/2018 Tertiary NOT GIVENUNK [place] Insurance:SELF PAY [facility] Number: Effective Repository Date:2018-01-14 11/29/2017 CEDRIC Mejia Primary MARGARET Christel [id number] [facility] [id number], [place] Number: Repository [address]Wyo: [phone] [id number] [phone] () Date:5271-35-97AC [address] [address]IX: 11/29/2017 Secondary CEDRIC R Christel Insurance:CARESOURCEPo HOWELLDOB: Community licy Number: [id number] Hospital [id number] Repository Date:2017-11-29[address]ATTN: [place] [address]UW: 11/29/2017 Tertiary NOT GIVENUNK Christel Insurance:SELF PAY [facility] Number: Effective Repository Date:2017-11-29 11/20/2017 CEDRIC R Primary MARGARET Christel [id number] Insurance:HUMANA RUTHB: [facility] [id number], [place] Number: Repository [id number]: [phone] [id number] [phone] (HP) Date:1659-92-98HA [address] [address]RO: 11/20/2017 Secondary CEDRIC R Christel Insurance:CARESOURCEPo HOWELLDOB: Community licy Number: [id number] Hospital [id number] Repository Date:2017-11-20[address]ATTN: [place] [address]XZ: 11/20/2017 Tertiary NOT GIVENUNK [place] Insurance:SELF PAY [facility] Number: Effective Repository Date:2017-11-20 11/05/2017 CEDRIC R Primary MARGARET WILLIAMSRODNEY Christel [id number] Insurance:[place], [place] Number: Repository [id number]: [phone] [id number] [phone] (HP) Date:9328-13-15SN [address] [address]FG: 11/05/2017 Secondary CEDRIC R [place] Insurance:CARESOURCEPo HOWELLDOB: Community licy Number: [id number] Hospital [id number] Repository Date:2017-11-05[address]ATTN: [place] [address]PT: 11/05/2017 Tertiary NOT GIVENUNK [place] Insurance:SELF PAY [facility] Number: Effective Repository Date:2017-11-05 10/28/2017 CEDRIC Mejia Primary MARGARET [place] [id number] Insurance:[place], [place] Number: Repository [address]Soj: 330 [id number] [phone] (HP) Date:2729-93-26QX [address] [place] [address]OY: 10/28/2017 Secondary CEDRIC R Christel Insurance:CARESOURCEPo HOWELLDOB: Community licy Number: [id number] Hospital [id number] Repository Date:2017-10-28[address]ATTN: [place] [address]RL: 10/28/2017 Tertiary NOT GIVENUNK [place] Insurance:SELF PAY [facility] Number: Effective Repository Date:2017-10-28 10/19/2017 CEDRIC Mejia Primary MARGARET [id number] Insurance:[place] Number: Repository [id number]: [id number] [phone] Date:8662-06-17OX [address] (HP) [address] [place] [address]CB: 10/19/2017 Secondary CEDRIC R Christel Insurance:CARESOURCEPo HOWELLDOB: Community licy Number: [id number] Hospital [id number] Repository Date:2017-10-19[address]ATTN: [place] [address]TO: 10/19/2017 Tertiary NOT GIVENUNK Christel Insurance:SELF PAY [facility] Number: Effective Repository Date:2017-10-19 10/09/2017 CEDRIC R Primary MARGARET WILLIAMSRODNEY Christel [id number] Insurance:HUMANA [place] Number: Repository [address]Rmb: [id number] [phone] Date:0001-86-02ZW [address] (HP) [address] [place] [address]LR: 10/09/2017 Secondary CEDRIC R [place] Insurance:CARESOURCEPo HOWELLDOB: Community licy Number: [id number] Hospital [id number] Repository Date:2017-10-09[address]ATTN: [place] [address]MU: 10/09/2017 Tertiary NOT GIVENUNK Christel Insurance:SELF PAY [facility] Number: Effective Repository Date:2017-10-09 09/19/2017 CEDRIC R Primary MARGARET [place] [id number] Insurance:ARMANDO RUTHB: [facility] [id number], [place] Number: Effective Repository [address]Smk: Date:8057-24-27QG [phone] [place] [address] 0-3 (HP) [address]JB: 09/19/2017 Secondary CEDRIC R Christel Insurance:CARESOURCEPo HOWELLDOB: Community licy Number: [id number] Hospital [id number] Repository Date:2017-09-19[address]ATTN: [place] [address]IA: 09/19/2017 Tertiary NOT GIVENUNK Christel Insurance:SELF PAY [facility] Number: Effective Repository Date:2017-09-19 09/16/2017 CEDRIC R Primary MARGARET Christel [id number] Insurance:HUMANA JANNETDOB: [facility] [id number], [place] Number: Effective Repository [address]Zta: Date:1100-59-45FS [phone] [place] [address] 0-3 (HP) [address]IH: 09/16/2017 Secondary CEDRIC R Christel Insurance:CARESOURCEPo HOWELLDOB: Community licy Number: [id number] Hospital [id number] Repository Date:2017-09-16[address]ATTN: [place] [address]ND: 09/16/2017 Tertiary NOT GIVENUNK [place] Insurance:SELF PAY [facility] Number: Effective Repository Date:2017-09-16 08/04/2017 CEDRIC R Primary MARGARET WILLIAMSRODNEY Christel [id number] Insurance:[place] Number: Repository [id number]: [phone] [id number] [phone] (HP) Date:1690-15-78FK [address] [place] [address]AY: 08/04/2017 Secondary CEDRIC R Christel Insurance:CARESOURCEPo HOWELLDOB: Community licy Number: [id number] Hospital [id number] Repository Date:2017-08-04[address]ATTN: [place] [address]PE: 08/04/2017 Tertiary NOT GIVENUNK Christel Insurance:SELF PAY [facility] Number: Effective Repository Date:2017-08-04 08/01/2017 CEDRIC R Primary MARGARET [place] [id number] Insurance:HUMANA JANNETDOB: [facility] [id number], [place] Number: Repository [id number]: [id number] [phone] Date:9600-74-90KR [address] (HP) [address] [place] [address]WS: 08/01/2017 Secondary CEDRIC R [place] Insurance:CARESOURCEPo HOWELLDOB: Community licy Number: [id number] Hospital [id number] Repository Date:2017-08-01[address]ATTN: [place] [address]XU: 08/01/2017 Tertiary NOT GIVENUNK Christel Insurance:SELF PAY [facility] Effective Repository Date:2017-08-01 07/13/2017 CEDRIC R Primary CEDRIC R Christ[place] [id number] Insurance:HUMANA HOWELLDOB: Community GASCHE COMMERCIALPolicy [id number], [place] Number: Repository [address]Bst: [phone] [id number] [phone] () Date:3644-51-06BA [address] [place] [address]OQ: 07/13/2017 Secondary CEDRIC R [place] Insurance:CARESOURCEPo HOWELLDOB: Community licy Number: [id number] Hospital [id number] Repository Date:2017-07-13[address]ATTN: [place] [address]HI: 07/13/2017 Tertiary NOT GIVENUNK Christel Insurance:SELF PAY [facility] Number: Effective Repository Date:2017-07-13 06/19/2017 CEDRIC R Primary MARGARET [place] [id number] Insurance:HUMANA WILLIAMSDOB: Community GASCHE COMMERCIALPolicy [id number], [place] Number: Effective Repository [address]Iys: Date:8996-48-19XC [address] [phone] [place] [address] 0-3 (HP) [address]KD: 06/19/2017 Secondary CEDRIC R [place] Insurance:CARESOURCEPo HOWELLDOB: Community licy Number: [id number] Hospital [id number] Repository Date:2017-06-19[address]ATTN: [place] [address]CB: 06/19/2017 Tertiary NOT GIVENUNK [place] Insurance:SELF PAY [facility] Number: Effective Repository Date:2017-06-19 06/19/2017 CEDRIC R Primary CEDIRC R [place] [id number] Insurance:HUMANA HOWELLDOB: Community GASCHE COMMERCIALPolicy [id number], [place] Number: Repository [address]Zup: [phone]) [id number] [phone] () Date:7644-23-[address]OB[address] [address]EM: 06/19/2017 Secondary CEDRIC R Christel Insurance:CARESOURCEPo HOWELLDOB: Community licy Number: [id number] Hospital [id number] Repository Date:2017-07-28 [address]ATTN: [place] [address]CB: 06/19/2017 Tertiary NOT GIVENUNK Christel Insurance:SELF PAY [facility] Number: Effective Repository Date:2017-06-19 05/20/2017 CEDRIC R Primary MARGARET [place] [id number] Insurance:HUMANA WILLIAMSDOB: Community ERIC DRAPT COMMERCIALPolicy [id number] Number: Repository [address]Cmd: [phone] [id number] [phone] () Date:7350-04-09NP[address] [address]BB: 05/20/2017 Secondary CEDRIC R Christel Insurance:CARESOURCEPo HOWELLDOB: Community licy Number: [id number] Hospital [id number] Repository Date:2017-01-15[address]ATTN: [place] [address]EJ: 04/11/2017 CEDRIC R Primary MARGARET [place] [id number] Insurance:HUMANA WILLIAMSDOB: Community ERIC DRAPT COMMERCIALPolicy [id number] Number: Repository [address]Xro: ([phone]) [id number] [phone] () Date:2314-95-83LW [address] [place] [address]YY: 04/11/2017 Secondary CEDRIC R Christel Insurance:CARESOURCEPo HOWELLDOB: Community licy Number: [id number] Hospital [id number] Repository Date:2017-01-15[address]ATTN: [place] [address]SP: 04/10/2017 CEDRIC R Primary MARGARET [place] [id number] Insurance:HUMANA JANNETDOB: [facility] ERIC DRAPT COMMERCIALH[facility] Medical Centericy [id number] Number: Repository [address]Dsk: [phone] [id number] [phone] () Date:0876-70-85RX[address] [address]CM: 04/10/2017 Secondary CEDRIC R Christel Insurance:CARESOURCEPo HOWELLDOB: Community licy Number: [id number] Hospital [id number] Repository Date:2017-01-15[address]ATTN: [place] [address]OE: 04/05/2017 CEDRIC R Primary MARGARET Christel [id number] Insurance:HUMANA JANNETDOB: [facility] ERIC DRAPT COMMERCIALPolicy [id number] Number: Repository [address]Wml: 330 [id number] [phone] () Date:8876-50-06PY[address] [address]JI: 04/05/2017 Secondary CEDRIC R Christel Insurance:CARESOURCEPo HOWELLDOB: Community licy Number: [id number] [facility] [id number] Repository Date:2017-01-15[address]ATTN: [place] [address]SS: 04/03/2017 CEDRIC R Primary MARGARET Christel [id number] Insurance:BREANNA MIRANDAB: [facility] ERIC TIPTON COMMERCIALPoly [id number] Number: Repository [address]Oda: 330 [id number] [phone] (HP) Date:2246-19-40ZT [address] [place] [address]GD: 04/03/2017 Secondary CEDRIC R Christel Insurance:CARESOURCEPo HOWELLDOB: Community licy Number: [id number] Hospital [id number] Repository Date:2017-01-15 [address]ATTN: [place] [address]DR: 03/30/2017 CEDRIC R Primary MARGARET [place] [id number] Insurance:BREANNA MIRANDAB: [facility]IC [facility]IPTON [facility] [id number] Number: Repository [address]Zva: 330 [id number] [phone] () Date:7929-39-89XB[address] [address]AM: 03/30/2017 Secondary CEDRIC R [place] Insurance:CARESOURCEPo HOWELLDOB: [facility] licy Number: [id number] Hospital [id number] Repository Date:2017-01-15 [address]ATTN: [place] [address]IJ: 03/25/2017 CEDRIC R Primary MARGARET Christel [id number] Insurance:HUMANA RUTHB: [facility] ERIC THOMPSONAPT COMMERCIALWell[facility] [id number] Number: Repository [address]Wtb: 330 [id number] [phone] () Date:7723-14-21YW [address] [id number]: 03/25/2017 Secondary CEDRIC R Christel Insurance:CARESOURCEPo HOWELLDOB: [facility] licy Number: [id number] Hospital [id number] Repository Date:2017-01-15[address]ATTN: [place] [address]EN: 03/06/2017 CEDRIC R Primary MARGARET [place] [id number] Insurance:HUMANA JANNETDOB: [facility] [id number] Number: Repository [id number]: [phone] [id number] [phone] () Date:[id number] [address]ZD: 03/06/2017 Secondary CEDRIC R [place] Insurance:CARESOURCEPo HOWELLDOB: [facility] licy Number: [id number] Hospital [id number] Repository Date:2017-01-15 [address]ATTN: [place] [address]XU: 03/04/2017 CEDRIC R Primary MARGARET [place] [id number] Insurance:BREANNA MIRANDAB: [facility] ERIC [place]IPTON [facility] [id number] Number: Repository [phone]: [phone] [id number] [phone] () Date:[id number] [address]LU: 03/04/2017 Secondary CEDRIC R Christel Insurance:CARESOURCEPo HOWELLDOB: [facility] licy Number: [id number] Hospital [id number] Repository Date:2017-01-15[address]ATTN: [place] [address]UZ: 03/04/2017 CEDRIC R Primary MARGARET [place] [id number] Insurance:HUMANWhitney MIRANDAB: [facility] [id number], [place] Number: Repository [id number]: [phone] [id number] [phone] () Date:4786-29-99[address] [address], [place] [address]CL: 03/04/2017 Secondary CEDRIC [place] Insurance:DAYANARAMISSOURI DELTA [facility] CENTERAkiko ARROYOSTONY BR[facility]ITALB: [facility] licy Number: [id number] Hospital [id number] Repository Date:2017-01-15 [address]ATTN: [place] [address]DX:
--- NOTE | 2018-01-14 08:04 | ED.VISSUMM ---
- ER Visit Summary Date of Service: 01/14/18 Chief Complaint: Panic attack History of Present Illness: The patient is a 22 F with a history of anxiety depression. Patient states that a panic attack at work last night. She took Vistaril this morning without improvement. She has some chest tightness states she felt nauseated when she got herself worked up. She states she started to feel somewhat better now. She states she is on a waiting list to be seen at the counseling center but has not yet been in to see them. She denies suicidal ideation. Physical Examination: Blood pressure is 154/85, otherwise unremarkable. Head neck examination is normal. Heart is regular rate and rhythm. Lung sounds are clear. Abdomen is soft nontender. Neuro exam is normal. Psychiatric examination reveals no suicidal ideation. She does continue to feel anxious. Test Results: Patient requested urinalysis be checked in this is normal with no sign of infection. Emergency Department Course and Treatment: Oars report was performed. Patient had no controlled substances prescribed in the last year. Patient was given a dose of p.o. Ativan here. I spoke with the counselor composition floor layer and gave them her information to they could check to see where she is in the waiting list and attempts to get her seen faster. On repeat evaluation patient is resting comfortably with no complaints. She reports feeling significantly improved. She will be given a prescription for Ativan 0.5 mg dispense #6 tabs only to be used if her Vistaril is not effective. Treatment Plan: [] Disposition: Discharge Impression: Anxiety This note was generated with [employer] dictation software. It may contain incorrect words, spelling, and punctuation that were not noted in review of the chart prior to signing ED Disposition - Plan for ED Patient: Chief Complaint: Anxiety Referrals: Austin Castro MD [Primary Care Provider] -
[2018-01-14 08:22] LABS: Bacteria 0 SEEN /hpf (None Seen); Mucous, Urine 0 SEEN /hpf (<or=2+); Red Blood Cells-Urine 0 SEEN /hpf (0-5); White Blood Cells 0 SEEN /hpf (0-5)
[2018-01-14 08:32] LABS: Color, Urine Straw (Yellow); Glucose, Dipstick Normal (Normal); Ketone-Dipstick Negative (Negative); Leukocyte Esterase-Dipstick Negative /ul (Negative); Nitrite-Dipstick Negative (Negative); Occult Blood-Urine Negative /ul (Negative); Protein-Dipstick Negative (Negative); Specific Gravity, Urine 1.005 (1.002-1.030); Urine Bilirubin Dipstick Negative (Negative); Urine Clarity Clear (Clear); Urine Urobilinogen Normal (Normal)
[2018-01-14 08:37] LABS: Squamous Epithelial Cells - UA 0-5 SEEN /hpf (5-10)
--- NOTE | 2018-01-14 08:47 | ED.DEP ---
ED Disposition - Plan for ED Patient: Disposition: Home or Assisted Living Chief Complaint: Anxiety Instructions: ED Panic Attack Prescriptions: Lorazepam [Ativan] 0.5 mg PO BID PRN PRN #6 tablet PRN Reason: Anxiety Referrals: Austin Castro MD [Primary Care Provider] - Counseling,Center [GROUP OF PHYSICIANS] - As soon as possible
[2018-01-14 08:56] VITALS: BP 146/48; PULSE 74; RESP 18; O2SAT 99
== END 2018-01-14 08:57 | disposition home or self-care (01) ==
PROVIDERS: Emergency Provider Emergency Medicine; Family Provider Family Medicine; PCP Family Medicine
DX: F41.9 Anxiety disorder, unspecified (principal); F32.9 Major depressive disorder, single episode, unspecified; Z79.899 Other long term (current) drug therapy; Z87.891 Personal history of nicotine dependence
CPT/HCPCS: 81001; 99283

== ENCOUNTER 2018-01-30 17:37 | Emergency (ER) | payer OTHER, MEDICAID, SELFPAY ==
[2018-01-30 17:38] VITALS: BP 147/99; PULSE 82; RESP 16; TEMP 36.8; O2SAT 99; BMI 36.9
[2018-01-30 18:57] LABS: Bacteria 0 SEEN /hpf (None Seen); Mucous, Urine 0 SEEN /hpf (<or=2+); Red Blood Cells-Urine 0 SEEN /hpf (0-5); White Blood Cells 0 SEEN /hpf (0-5)
[2018-01-30 19:01] LABS: Color, Urine Yellow (Yellow); Glucose, Dipstick Normal (Normal); Ketone-Dipstick Negative (Negative); Leukocyte Esterase-Dipstick Negative /ul (Negative); Nitrite-Dipstick Negative (Negative); Occult Blood-Urine 10 /ul (Negative); Protein-Dipstick Negative (Negative); Urine Bilirubin Dipstick Negative (Negative); Urine Clarity Clear (Clear); Urine Urobilinogen Normal (Normal)
[2018-01-30] MEDS: Naproxen 500 MG Tablet PO (19:13)
[2018-01-30 19:14] LABS: Squamous Epithelial Cells - UA 0-5 SEEN /hpf (5-10)
[2018-01-30 19:15] LABS: Internal QC Validated? YES +Cl - CLEAR BKGD; Pregnancy, Urine Negative Negative
--- OUTSIDE RECORDS SUMMARY | 2018-01-30 19:31 | XMS RPT_ITS | Clinical Summary ---
:1995 Author Organization [facility], [facility] Address [address] [place] [address] Phone Care Team Providers Name Role Phone Christine Paula LPN Unavailable Conditions or Problems Problem Name Problem Onset Status Entry Provider Comment Standard Annotate Code Date Date Description Nausea alone 460285436 Active Corbin A Nausea (SNOMED CT) / Phillips PA-C Acute [id number] Active Corbin A Acute pharyngitis (SNOMED CT) / Phillips pharyngitis PA-C Medications Medication Instructions Start Date Stop Date Generic Name NDC Provider FERROUS SULFATE as directed FERROUS 92758594323 Corbin A 27 MG TABS SULFATE Alan PA-C PROZAC 10 MG as directed FLUOXETINE HCL 64026647322 Corbin A CAPS Phillips PA-C CONTROL - as directed CONTROL Corbin A UNKNOWN - UNKNOWN Phillips PA-C Medications Administered No information available. Allergies, Adverse Reactions, Alerts Observed no known allergies at Results Date Name Value Unit Range Flag Description Office Visit: UC: sore throat/ hernia check RAPID STREP negative Streptococcus pyogenes DNA [Presence] in Throat by Probe and target amplification method MEDS REVIEW Done Documentation of current medications (procedure) FALLRSKASSES No Fall risk assessment ORALTOBACUSE Never Tobacco smoking status NHIS SMOK STATUS Never smoker Tobacco smoking status [facility] Plan of Care Type Date Detail Appointment 12:00 PM Corbin Whitney Alan KURTZ-C, [facility] [facility], [address], [place], [address], Pending order *Culture, R/O Strep A Swab Procedures Code Procedure Name Date Entry Date [id number] Rapid Strep (Office) Vital Signs Date Name Value Unit Description BMI (Body Mass Index) 38.61 kg/m2 Body Mass Index [Ratio] Body Temperature 98.1 [degF] temperature E&M BP Diastolic 78 mm[Hg] blood pressure, diastolic - 8462-4 BP Systolic 118 mm[Hg] blood pressure, systolic - 8480-6 Heart Rate 71 /min pulse rate E&M - 8867-4 Height 63 [in_us] height E&M - 8302-2 Respiratory Rate 14 /min respiratory rate E&M - 9279-1 Weight Measured 218 [lb_av] weight E&M - 3141-9
--- OUTSIDE RECORDS SUMMARY | 2018-01-30 19:32 | XMS RPT_ITS ---
:1995 Author Organization OHIP Support Name Relationship Address Phone KACI HARMAN Unavailable [address] + [address] [place] [address] WESMA Unavailable [address] + [place] [address] BUSTOS, ENMA Unavailable Unavailable + WESMA Unavailable [address] + [place] [address] KACI HARMAN Unavailable [address] + [address] [place] [address] WESMA Unavailable [address] + [place] [address] BUSTOS, ENMA Unavailable Unavailable + WESMA Unavailable [address] + [place] [address] BUSTOS, ENMA Unavailable Unavailable + WESMA Unavailable [address] + [place] [address] KACI HARMAN Unavailable [address] + [address] [place] [address] WESMA Unavailable [address] + [place] [address] KACI HARMAN Unavailable [address] + [address] [place] [address] WESMA Unavailable [address] + [place] [address] KACI HARMAN Unavailable [address] + [address] [place] [address] WESMA Unavailable [address] + [place] [address] KACI HARMAN Unavailable [address] + [address] [place] [address] WESMA Unavailable [address] + [place] [address] KACI HARMAN Unavailable [address] + [address] [place] [address] [facility] Unavailable [address] + [place] [address] KACI HARMAN Unavailable [address] + [address] [place] [address] [facility] Unavailable [address] + [place] [address] KACI HARMAN Unavailable [address] + [address] [place] [address] [facility] Unavailable [address] + [place] [address] KACI HARMAN Unavailable [address] + [address] [place] [address] [facility] Unavailable [address] + [place] [address] KACI HARMAN Unavailable [address] + [address] [place] [address] WESMA Unavailable [address] + [place] [address] KACI HARMAN Unavailable [address] + [address] [place] [address] [facility] Unavailable [address] + [place] [address] KACI HARMAN Unavailable [address] + [address] [place] [address] WESMA Unavailable [address] + [place] [address] KACI HARMAN Unavailable [address] + [address] [place] [address] [facility] Unavailable [address] + [place] [address] KACI HARMAN Unavailable [address] + [address] [place] [address] WESMA Unavailable [address] + [place] [address] [facility] Unavailable [address] + [place] [address] IDRIS HARMANA Unavailable [address] + [address] [place] [address] [facility] Unavailable [address] + [place] [address] IDRIS HARMANA Unavailable [address] + [address] [place] [address] [facility] Unavailable [address] + [place] [address] KACI HARMAN Unavailable [address] + [address] [place] [address] [facility] Unavailable [address] + [place] [address] KACI HARMAN Unavailable [address] + [address] [place] [address] [facility] Unavailable [address] + [place] [address] KACI HARMAN Unavailable [address] + [address] [place] [address] [facility] Unavailable [address] + [place] [address] KACI HARMAN Unavailable [address] + [address] [place] [address] [facility] Unavailable [address] + [place] [address] KACI HARMAN Unavailable [address] + [address] [place] [address] [facility] Unavailable [address] + [place] [address] KACI HARMAN Unavailable [address] + [address] [place] [address] [facility] Unavailable [address] + [place] [address] IDRIS HARMANA Unavailable [address] + [address] [place] [address] [address] [address] [address] + [place] [address] KACI HARMAN Unavailable [address] + [address] [place] [address] Care Team Providers Name Role Phone BUSHRA WHITE Attending Unavailable GABRIELA OLIVA Referring Unavailable SOFÍA ESTEBAN (OSTOMY NURSE) Referring Unavailable ALEXANDRE WATTERS Referring Unavailable TIMUR SANTILLAN (CNM) Attending Unavailable GABRIELA OLIVA Referring Unavailable MASSIMO SIMS Attending Unavailable DANA PINA Attending Unavailable GABRIELA OLIVA Referring Unavailable BUSHRA WHITE Attending Unavailable GABRIELA OLIVA Referring Unavailable DANA PINA Attending Unavailable ALEXANDRE WATTERS Attending Unavailable APPLE ZAMARRIPA (PA) Attending Unavailable BUSHRA WHITE Attending Unavailable DANA PINA Attending Unavailable DANA PINA Referring Unavailable ALEXANDRE WATTERS Attending Unavailable VAISHALI ROSALES (CNM) Attending Unavailable VAISHALI ROSALES (CNM) Referring Unavailable BUSHRA WHITE Attending Unavailable ALEXANDRE WATTERS Referring Unavailable BUSHRA WHITE Attending Unavailable BUSHRA WHITE Referring Unavailable ALEXANDRE WATTERS Attending Unavailable VAISHALI ROSALES (CNM) Attending Unavailable AURELIANO SIMEON (PA-C) Referring Unavailable ALEXANDRE WATTERS Attending Unavailable ALEXANDRE WATTERS Referring Unavailable RANJITH BUTCHER (CNM) Attending Unavailable Bushra White Attending Unavailable Adam, Kishore Primary Care Unavailable Kin Lucas Attending Unavailable Adam, Kishore Primary Care Unavailable Bushra White Attending Unavailable Adam, Kishore Primary Care Unavailable Bushra White Attending Unavailable Adam, Kishore Primary Care Unavailable Alexandre Watters Attending Unavailable Adam, Kishore Primary Care Unavailable Monique-Dana Washington Attending Unavailable Adam, Kishore Primary Care Unavailable NeCarrie Stonere Attending Unavailable Adam, Kishore Primary Care Unavailable Bushra White Attending Unavailable Adam, Kishore Primary Care Unavailable Adam, Kishore Primary Care Unavailable Monique-Dana Washington Admitting Unavailable Alexandre Watters Attending Unavailable Schinner, Tommy E Attending Unavailable Schinner, Tommy E Primary Care Unavailable Corbin Phillips Attending Unavailable Reggie Raya Attending Unavailable Schinner, Tommy E Referring Unavailable Schinner, Tommy E Primary Care Unavailable Corbin Phillips Attending Unavailable Schinner, Tommy E Attending Unavailable Schinner, Tommy E Primary Care Unavailable Raf Jarrett Attending Unavailable Schinner, Tommy E Referring Unavailable Schinner, Tommy E Primary Care Unavailable Wil Farr Attending Unavailable Schinner, Tommy E Attending Unavailable Schinner, Tommy E Primary Care Unavailable Schinner, Tommy E Primary Care Unavailable TAE CAMPBELL Attending Unavailable ArnulfolesReggie Attending Unavailable Schinner, Tommy E Referring Unavailable Schinner, Tommy E Primary Care Unavailable Schinner, Tommy E Primary Care Unavailable Johny Wolfe Attending Unavailable Schinner, Tommy E Primary Care Unavailable Kin Lucas Attending Unavailable Schinner, Tommy E Primary Care Unavailable Johny Wolfe Attending Unavailable Raf Jarrett Attending Unavailable Schinner, Tommy E Referring Unavailable Schinner, Tommy E Primary Care Unavailable Gabriela Goldstein Attending Unavailable Schinner, Tommy E Primary Care Unavailable Reggie Raya Attending Unavailable Schinner, Tommy E Referring Unavailable Reggie Raya Attending Unavailable Schinner, Tommy E Referring Unavailable Schinner, Tommy E Primary Care Unavailable Derek Coppola Attending Unavailable Derek Coppola Referring Unavailable WyReggie ivey Attending Unavailable Schinner, Tommy E Primary Care Unavailable PROBLEMS PROBLEMS DATE TYPE CONDITION / CODE ATTENDING STATUS SOURCE 01/30/2018 Unknown R35.0 - Frequency of Reggie Raya Active [place] micturition / Community R35.0(ICD-10) Hospital Repository 10/19/2017 Unknown R30.0 - Dysuria / Reggie Raya Active [place] R30.0(ICD-10) On License Of [facility] Hospital Repository 10/11/2017 Unknown D50.9 - Iron Tommy Castro Active [place] deficiency anemia, E Community unspecified / Hospital D50.9(ICD-10) Repository 10/11/2017 Unknown R07.81 - Pleurodynia Shundry, Active [place] / R07.81(ICD-10) [facility] Repository 01/02/2018 Unknown J01.00 - Acute Raf Jarrett Active [facility] maxillary sinusitis, Community unspecified / Hospital J01.00(ICD-10) Repository 01/02/2018 Unknown J01.90 - Acute Raf Jarrett Active [place] sinusitis, Community unspecified / Hospital J01.90(ICD-10) Repository 10/11/2017 Unknown D64.9 - Anemia, Jeannejessiechristofer Tommy Active [facility] unspecified / E Community D64.9(ICD-10) Hospital Repository 12/16/2017 Unknown N39.0 - Urinary tract Reggie Raya Active [place] infection, site not Community specified / Hospital N39.0(ICD-10) Repository 10/11/2017 Unknown J02.9 - Acute Corbin Phillips Active [facility] pharyngitis, Community unspecified / Hospital J02.9(ICD-10) Repository 05/24/2017 Unknown ANEMIA, UNSPECIFIED / Tommy Castro Active [place] D64.9(ICD-10) E On License Of [facility] Hospital Repository 05/24/2017 Unknown MAJOR DEPRESSIVE Tommy Castro Active [place] DISORDER, SINGLE E Community EPISODE, UNSPECIFIED Hospital / F32.9(ICD-10) Repository 05/24/2017 Unknown OBESITY, UNSPECIFIED Matthew Tommy Active [place] / E66.9(ICD-10) E On License Of [facility] Hospital Repository 05/24/2017 Unknown BODY MASS INDEX (BMI) Tommy Castro Active [facility] 30.0-30.9, ADULT / E Community Z68.30(ICD-10) Hospital Repository 05/09/2017 Active Unspecified injury of NA Active [facility] left lower leg, Clinic Main initial encounter / [place] S89.92XA(ICD-10) Repository 05/20/2017 Unknown FAILED MEDICAL Paulo Active [place] INDUCTION OF LABOR / Alexandre On License Of [facility] O61.0(ICD-10) Hospital Repository 05/20/2017 Unknown ACUTE POSTHEMORRHAGIC Paulo Active [place] ANEMIA / D62(ICD-10) [facility]2017 Unknown BODY MASS INDEX (BMI) Paulo Active [place] 40.0-44.9, ADULT / Alexandre On License Of [facility] Z68.41(ICD-10) Hospital Repository 05/20/2017 Unknown 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 / Alexandre On License Of [facility] O62.1(ICD-10) Hospital Repository 05/20/2017 Unknown OBESITY COMPLICATING Paulo, Active [place] CHILDBIRTH / [facility] O99.214(ICD-10) Hospital Repository 05/20/2017 Unknown LABOR AND DELIVERY Paulo, Active [place] COMPLICATED BY [facility] MECONIUM IN AMNIOTIC Hospital FLUID / O77.0(ICD-10) Repository 05/20/2017 Unknown 39 WEEKS GESTATION OF Paulo, Active [place] / [facility] Z3A.39(ICD-10) Hospital Repository 05/20/2017 Unknown SINGLE LIVE / Paulo, Active [place] Z37.0(ICD-10) [facility] Hospital Repository 05/20/2017 Unknown ANEMIA OF THE Paulo, Active [place] PUERPERIUM / [facility] O90.81(ICD-10) Hospital Repository 05/20/2017 Unknown OTHER MENTAL Paulo, Active [facility] DISORDERS [facility] COMPLICATING THE Hospital PUERPERIUM / Repository O99.345(ICD-10) 05/20/2017 Unknown ANXIETY DISORDER, Paulo, Active [place] UNSPECIFIED / [facility] F41.9(ICD-10) Hospital Repository 05/20/2017 Unknown PERSONAL HISTORY OF Paulo, Active [facility] NICOTINE DEPENDENCE / [facility] Z87.891(ICD-10) Hospital Repository 04/11/2017 Active 39 weeks gestation of NA Active [facility] / Clinic Main Z3A.39(ICD-10) [place] Repository 04/11/2017 Active Persistent NA Active [facility] proteinuria, Clinic Main unspecified / [place] R80.1(ICD-10) Repository 05/20/2017 Unknown DIARRHEA, UNSPECIFIED Neyhart-McIntos Active [facility] / R19.7(ICD-10) [facility] Hospital Repository 05/20/2017 Unknown UNSP INFCT OF URINARY Neyhart-McIntos Active [place] TRACT IN , [facility] THIRD TRIMESTER / Hospital O23.43(ICD-10) Repository 05/20/2017 Unknown FALSE LABOR AT OR Paulo, Active [place] AFTER 37 COMPLETED [facility] WEEKS OF GESTATION / Hospital O47.1(ICD-10) Repository 05/20/2017 Unknown 38 WEEKS GESTATION OF Paulo, Active [place] / [facility] Z3A.38(ICD-10) Hospital Repository 05/20/2017 Unknown OTH RELATED Bushra White Active [place] CONDITIONS, Community UNSPECIFIED TRIMESTER Hospital / O26.899(ICD-10) Repository 05/20/2017 Unknown NAUSEA / Bushra White Active [place] R11.0(ICD-10) Community Hospital Repository 05/20/2017 Unknown FALSE LABOR, Bushra White Active [place] UNSPECIFIED / Community O47.9(ICD-10) Hospital Repository 05/20/2017 Unknown WEEKS OF GESTATION OF Bushra White Active [facility] NOT Community SPECIFIED / Hospital Z3A.00(ICD-10) Repository 05/20/2017 Unknown CONTUSION OF RIGHT Kin Lucas Active [place] KNEE, INITIAL Community ENCOUNTER / Hospital S80.01XA(ICD-10) Repository 05/20/2017 Unknown CONTUSION OF RIGHT Kin Lucas Active [place] FOOT, INITIAL Community ENCOUNTER / Hospital S90.31XA(ICD-10) Repository 05/20/2017 Unknown FALL SAME LEV FROM Kin Lucas Active [facility] SLIP/TRIP W/O STRIKE Community AGAINST OBJECT, INIT Hospital / W01.0XXA(ICD-10) Repository 05/20/2017 Unknown OTH PLACES THE Kin Lucas Active [place] PLACE OF OCCURRENCE Community OF THE EXTERNAL CAUSE Hospital / Y92.89(ICD-10) Repository 05/20/2017 Unknown UNSPECIFIED EXTERNAL Kin Lucas Active [facility] CAUSE STATUS / Community Y99.9(ICD-10) Hospital Repository 05/20/2017 Unknown OTH RELATED Bushra White Active [place] CONDITIONS, THIRD Community TRIMESTER / Hospital O26.893(ICD-10) Repository 05/20/2017 Unknown UNSPECIFIED INJURY OF Bushra White Active [place] ABDOMEN, INITIAL Community ENCOUNTER / Hospital S39.91XA(ICD-10) Repository 05/20/2017 Unknown LABOR WITHOUT Bushra White Active [facility] DELIVERY, THIRD Community TRIMESTER / Hospital O60.03(ICD-10) Repository 05/20/2017 Unknown 34 WEEKS GESTATION OF Bushra White Active [place] / Community Z3A.34(ICD-10) Hospital Repository 05/20/2017 Unknown UNSPECIFIED FALL, Bushra White Active [facility] INITIAL ENCOUNTER / Community W19.XXXA(ICD-10) Hospital Repository 05/20/2017 Unknown ACTIVITY, UNSPECIFIED Bushra White Active [place] / Y93.9(ICD-10) Community Hospital Repository 05/20/[address] IN UNSP Bushra White Active [place] NON-INSTITUT Community (PRIVATE) RESIDENCE Hospital PLACE / Repository Y92.009(ICD-10) 05/20/2017 Unknown OTHER EXTERNAL CAUSE Bushra White Active [place] STATUS / Community Y99.8(ICD-10) Hospital Repository 02/14/2017 Active Unknown / DAVION TIMUR Roderick Active [facility] UNK(Unknown) (CNM) Clinic Main [place] Repository 02/01/2017 Active Abnormal glucose NA [facility] complicating Clinic Main / [place] O99.810(ICD-10) Repository 02/01/2017 Active Encounter for BUSHRA WHITE Active [facility] supervision of normal Clinic Main first , [place] third trimester / Repository Z34.03(ICD-10) 02/01/2017 Active 30 weeks gestation of BUSHRA WHITE [facility] / Clinic Main Z3A.30(ICD-10) [place] Repository PROCEDURES PROCEDURES No Procedure Records FoundRESULTS RESULTS URINALYSIS, COMPLETE Collected: 01/30/2018 Status: F Source: [place] 6:50 PM [facility] HOSPITAL REPOSITORY Order Comment: Order Date: 01/30/18Order Date: 01/30/18How was Urine Obtained? CLEAN CATCH TYPE CODE TESTS RESULT OUT OF RANGE REFERENCE UNITS LAB L400.3000 Normal Yellow COLOR Yellow LAB L400.3050 Normal Clear CLARITY Clear LAB L400.3200 Normal Normal mg/dl GLUCOSE, UR Normal LAB L400.3300 Normal Negative mg/dL BILIRUBIN Negative URINE LAB L400.3400 Normal Negative mg/dl KETONE UR Negative LAB L400.3465 Normal 1.002-1.030 SP.GR. 1.010 DIPSTX LAB L400.3550 Normal 5.0 - 8.0 pH UR 6.0 LAB L400.3600 Normal Negative mg/dl PROT DIPSTX Negative LAB L400.3700 Normal Normal mg/dl UROBILI Normal LAB L400.3750 Normal Negative NITRITE UR Negative LAB L400.3780 High Negative /ul OCCULT 10 BLOOD-UR LAB L400.3800 Normal Negative /ul LEUK Negative ESTERASE LAB L400.4050 Normal 0-5 /hpf WBC 0 SEEN LAB L400.4100 Normal 0-5 /hpf RBC-UA 0 SEEN LAB L400.4150 Normal 5-10 /hpf SQUAM EPI 0-5 SEEN LAB L400.4300 Normal None Seen /hpf BACTERIA 0 SEEN LAB L400.4350 Normal <or=2+ /hpf MUCUS, 0 SEEN URINE Performed By: #### L400.0001, L400.7600 ####[facility] [id number] [place], [place], [address] ,URINE Collected: 01/30/2018 Status: F Source: [place] 6:[address] [facility] REPOSITORY Order Comment: Order Date: 01/30/18Order Date: 01/30/18How was Urine Obtained? CLEAN CATCH TYPE CODE TESTS RESULT OUT OF REFERENCE UNITS RANGE LAB L400.8000 Normal Negative HCGUQUAL Negative Result Comment: Very dilute urine specimens, as indicated by a low specificgravity, may not contain leather goods sales representative levels of hCG.If is still suspected, a first morning urinespecimen should be collected 48 hours later and tested. Performed By: #### L400.0001, L400.7600 ####[facility] [address] [place], [place], [address] URINALYSIS, COMPLETE Collected: 01/30/2018 Status: F Source: [place] 6:[address] [facility] REPOSITORY Order Comment: How was Urine Obtained? CLEAN CATCH TYPE CODE TESTS RESULT OUT OF RANGE REFERENCE UNITS LAB L400.3000 Normal Yellow COLOR Yellow LAB L400.3050 Normal Clear CLARITY Clear LAB L400.3200 Normal Normal mg/dl GLUCOSE, UR Normal LAB L400.3300 Normal Negative mg/dL BILIRUBIN Negative URINE LAB L400.3400 Normal Negative mg/dl KETONE UR Negative LAB L400.3465 Normal 1.002-1.030 SP.GR. 1.010 DIPSTX LAB L400.3550 Normal 5.0 - 8.0 pH UR 7.0 LAB L400.3600 Normal Negative mg/dl PROT DIPSTX Negative LAB L400.3700 Normal Normal mg/dl UROBILI Normal LAB L400.3750 Normal Negative NITRITE UR Negative LAB L400.3780 High Negative /ul OCCULT 50 BLOOD-UR LAB L400.3800 Normal Negative /ul LEUK Negative ESTERASE LAB L400.4050 Normal 0-5 /hpf WBC 0 SEEN LAB L400.4100 Normal 0-5 /hpf RBC-UA 0-5 SEEN LAB L400.4150 Normal 5-10 /hpf SQUAM EPI 0-5 SEEN LAB L400.4300 Normal None Seen /hpf BACTERIA 0 SEEN LAB L400.4350 Normal <or=2+ /hpf MUCUS, 0 SEEN URINE Performed By: #### L400.0001 ####[facility] [id number] [place], [address] URGENT CARE VISIT Observed: 01/30/2018 Status: F Source: [place] REPORT 3:[address] [facility] REPOSITORY Now [address] [id number] VISITDate of Service: 01/30/18MR#: [id number] Acct: [id number]: CEDRIC HARMAN Rep #: [id number]: 1995 Provider: eRggie lCark/Sex: 22/F [facility] [place]: SignedIntakeVital Signs01/30/18 Height 5 ft 4 inIntakeVisit Reasons: Urinary tract infectionChief Complaint: Urinary frequency, bilateral flank painAllergiesNo Known Allergies Allergy (Verified 01/30/18 14:54)MedicationsDicyclomine HCl [Bentyl] 20 mg PO TIDAC #20 cap 11/05/17 [Rx Confirmed 01/30/18]Famotidine [Pepcid] 20 mg PO BID #28 tab 11/05/17 [Rx Confirmed 01/30/18]Fluoxetine [Prozac] 60 mg PO DAILY 11/05/17 [History Confirmed 01/30/18]Hydroxyzine Pamoate [Vistaril] 25 mg PO BID PRN PRN 11/05/17 [History Confirmed 01/30/18]Ondansetron [Zofran Odt] 4 mg PO Q8H PRN PRN #10 tab 11/05/17 [Rx Confirmed 01/30/18]Norgestimate-Ethinyl Estradiol [Previfem] 1 tab PO DAILY 11/20/17 [History Confirmed 01/30/18]PFSHSocial HistorySmoking Status: Former smokeralcohol intake: currentHPIHPIChief Complaint: Urinary frequency, bilateral flank painDetails: CEDRIC GHAZAL, is a 22 F who presents to the office today for initial evaluation newonset urinary frequency and bilateral flank pain. Patient states symptoms began this morning,and is concerned she may have a urinary tract infection. She notes no complaints of back pain,suprapubic pain, dysuria ; she admits to drinking more fluids recently. She notes no complaintsof nausea, vomiting, diarrhea, changes in color or character of stool -including no melena orhematochezia or michael/charli colored stool. She admits to having irregular menses over the courseof the last several months. She notes no other associated symptoms and no other alleviating oraggravating factors.ROSConstConstitutional: No excessive sweating , chills, fever(s), night sweats or body acheEyesEyes: No change in visionENTENT : No ear painRespRespiratory: No cough, chest congestion or shortness of breathCardioCardiology: No excessive sweating, chest pain at rest, chest pain with exertion, shortness ofbreath, dyspnea on exertion, irregular heart rhythm, generalized swelling or leg pain withexertionGastroGI: No abdominal pain, change in stool character, change in bowel habits, nausea/dyspepsia,vomiting or diarrheaGUGenitourinary-Female: Positive for urinary frequency (; See HPI);no burning urination, urinary urgency, painful urination, difficulty urinating or urinaryincontinenceMuscMusculoskeletal: No joint pain, back pain or limited range of motionSkinSkin: No change in hair or soresNeuroNeurology: No abnormal speech or abnormal movementsEndoEndocrine: No excessive sweatingExamConstGeneral: cooperative, healthy appearing, no acute distress, in distressNutritional Appearance: average body habitusOrientation: alert, awake, oriented [id number]: normal to inspectionEars: hearing grossly normal bilaterally, external ears normalNose: external nose normal, nares normalEyesGeneral: appearance normal, both eyes and all related structuresNeckNeck: normal visual inspection, full ROM, no lymphadenopathy, no meningeal signs, suppleNeck mass: NoThyroid: thyroid normalLymphatic: no lymphadenopathy notedChestChest palpation AND inspection: normal inspection of the chestRespEffort AND Inspection: normal respiratory effort, able to speak in complete sentences, symmetricchest movement, no coughAuscultation: Bilateral: Clear to AuscultationCardioPalpation: normal PMIRate: regular rateRhythm: regular rhythmHeart Sounds: S1 normal, S2 normal, no gallops, no murmurs, no rubsPulses : radial pulses presentGIInspection: normal to inspectionPalpation: soft, no hepatosplenomegaly, not firm, nontender, no masses, no guarding, other(bilat flank discomfort to touch and lateral bend at waiste)GUGeneral: No CVA tenderness, other (See urinalysis dip and urine hCG results)SkinGeneral: no rashes or [...] Yellow Last Edit by Noemi Griffin on 01/30/18 14:56Office Urine Clarity Clear Last Edit by Noemi Griffin on 01/30/18 14:56BMSPREGUROffice , Urine Negative Last Edit by Noemi Griffin on 01/30/18 14:56Assessment AND Plan1. UTI ( urinary tract infection) N39.02. Abdominal pain R10.93. Hematuria R31.9PlanUrinalysis dip reveals only blood, therefore urine sample sent to lab for further evaluation.Urine hCG negative.After reviewing HPI and exam findings with patient in office today , recommend appropriatehydration and bland diet and follow-up with PCP or COST CONTROL SUPERVISOR should symptoms persist or worsen.Patient states acknowledging understanding all the above.This note was generated with ScanScout dictation software. It may contain incorrect words,spelling, and punctuation that were not noted in checking the note before signing.Plan DetailOther OrdersOrders:CodingLevel of Care CodeOff vis,est,level 3DiagnosesUTI (urinary tract infection) N39.0Abdominal pain R10.9Hematuria R31.907/ 1544 <Electronically signed by Reggie KURTZ>Date Reggie Raya [facility] Signature: Date (if applicable)CC: EMERGENCY DEPARTMENT Observed: 01/14/2018 Status: F Source: [place] SUMMARY 4:[address] [facility] [id number] [place]IER [place]ST[place] [address]Iqngtnmqx Department Hrwneod94/30/18 0804MR#: [id number] Acct: [id number]: CEDRIC HARMAN Roberto Rep #: [id number]: 1995 22 From: Gabriela Goldstein MDPCP: Tommy Castro MD Status: DEP ER- ER Visit SummaryDate of Service: 01/14/18Chief Complaint: Panic attackHistory of Present Illness: The patient is a 22 F with a history of anxiety depression.Patient states that a panic attack at work last night. She took Vistaril this morning withoutimprovement. She has some chest tightness states she felt nauseated when she got herselfworked up. She states she started to feel somewhat better now. She states she is on a waitinglist to be seen at the counseling center but has not yet been in to see them. She deniessuicidal ideation.Physical Examination: Blood pressure is 154/85, otherwise unremarkable.Head neck examination is normal.Heart is regular rate and rhythm.Lung sounds are clear.Abdomen is soft nontender.Neuro exam is normal.Psychiatric examination reveals no suicidal ideation. She does continue to feel anxious.Test Results: Patient requested urinalysis be checked in this is normal with no sign ofinfection.Emergency Department Course and Treatment: Oars report was performed. Patient had nocontrolled substances prescribed in the last year. Patient was given a dose of p.o. Ativanhere. I spoke with the counselor planer stone and gave them her information to they could check tosee where she is in the waiting list and attempts to get her seen faster.On repeat evaluation patient is resting comfortably with no complaints. She reports feelingsignificantly improved. She will be given a prescription for Ativan 0.5 mg dispense #6 tabsonly to be used if her Vistaril is not effective.Treatment Plan : []Disposition: DischargeImpression: AnxietyThis note was generated with ScanScout dictation software. It may contain incorrect words,spelling, and punctuation that were not noted in review of the chart prior to signingED Disposition- Plan for ED Patient:Chief Complaint: AnxietyReferrals:Tommy Castro MD [Primary Care Provider] -What to do if you have ProblemsFor any increased pain, shortness of breath, bleeding, nausea or vomiting, chest pain, or anyunexpected problems, contact your Primary Care Provider. Call [facility] ([phone])or report to the closest Emergency Room.Call 911 if necessary.01/14/18 1637 <Electronically signed by Gabriela Goldstein MD>Date Gabriela Goldstein [facility] Signature (If Indicated): Date CC: Tommy Castro MD DISCHARGE INSTRUCTION Observed: 01/14/2018 Status: F Source: [place] 8:[address] [facility] REPOSITORY [facility] [address] [place], [place] [address]Qewrvqfvv Eamraywcqfo38/30/18 0847MR#: [id number] Acct: [id number]: CEDRIC HARMAN Rep #: [id number]: 1995 22 From: Gabriela Goldstein MDPCP: Tommy Castro MD Status: REG ERED Disposition- Plan for ED Patient:Disposition: Home or Assisted LivingChief Complaint: AnxietyInstructions: ED Panic AttackPrescriptions:Lorazepam [Ativan] 0.5 mg PO BID PRN PRN #6 tabletPRN Reason: AnxietyReferrals:Tommy Castro MD [Primary Care Provider] -Counseling,Center [GROUP OF PHYSICIANS] - As soon as possibleWhat to do if you have ProblemsFor any increased pain, shortness of breath, bleeding, nausea or vomiting, chest pain, or anyunexpected problems, contact your Primary Care Provider. Call [facility] ([phone])or report to the closest Emergency Room.Call 911 if necessary. 0850 <Electronically signed by Gabriela Goldstein MD>Date Gabriela Goldstein [facility] EDMONDosigner Signature (If Indicated): Date CC: Tommy Castro MD URINALYSIS, COMPLETE Collected: 01/14/2018 Status: F Source: [place] 8:[address] [facility] REPOSITORY Order Comment: How was Urine Obtained? PHOTOLITHOGRAPHIC STRIPPER TO SPECIFY TYPE CODE TESTS RESULT OUT OF RANGE REFERENCE UNITS LAB L400.3000 Normal Yellow COLOR Straw LAB L400.3050 Normal Clear CLARITY Clear LAB L400.3200 Normal Normal mg/dl GLUCOSE, UR Normal LAB L400.3300 Normal Negative mg/dL BILIRUBIN Negative URINE LAB L400.3400 Normal Negative mg/dl KETONE UR Negative LAB L400.3465 Normal 1.002-1.030 SP.GR. 1.005 DIPSTX LAB L400.3550 Normal 5.0 - 8.0 pH UR 7.0 LAB L400.3600 Normal Negative mg/dl PROT DIPSTX Negative LAB L400.3700 Normal Normal mg/dl UROBILI Normal LAB L400.3750 Normal Negative NITRITE UR Negative LAB L400.3780 Normal Negative /ul OCCULT Negative BLOOD-UR LAB L400.3800 Normal Negative /ul LEUK Negative ESTERASE LAB L400.4050 Normal 0-5 /hpf WBC 0 SEEN LAB L400.4100 Normal 0-5 /hpf RBC-UA 0 SEEN LAB L400.4150 Normal 5-10 /hpf SQUAM EPI 0-5 SEEN LAB L400.4300 Normal None Seen /hpf BACTERIA 0 SEEN LAB L400.4350 Normal <or=2+ /hpf MUCUS, 0 SEEN URINE Performed By: #### L400.0001 ####[facility] [address] [place], [place], [address] URGENT CARE VISIT Observed: 11/29/2017 Status: F Source: [place] REPORT 1:[address] [facility] REPOSITORY Now [address] [place] [address] [place] [address] [phone] VISITDate of Service: 11/29/17MR#: [id number] Acct: [id number]: CEDRIC HARMAN Rep #: [id number]: 1995 Provider: Raf Clark/Sex: 22/F [place] [facility] [place]NOWStatus: SignedIntakeVital Signs11/29/17 Height 5 ft 3 inIntakeVisit [...] verbalized understanding above.This note was generated with ScanScout dictation software. It may contain incorrect words,spelling, and punctuation that were not noted in checking the note before signing.MedicationsNew:CodingLevel of Care CodeOff vis,est,level 3DiagnosesOther acute nonsuppurative otitis media of both ears, recurrence not specified H65.193Otitis media type: other nonsuppurativeChronicity: acuteLaterality: bilateralRecurrence: not specified as xfqonpvlg32/15/18 1329 <Electronically signed by Raf KURTZ>Date Raf Jarrett PACosigner Signature: Date (if applicable)CC: 12 LEAD ELECTROCARDIOGRAM Observed: 11/23/2017 Status: F Source: [place] 1:[address] [facility] REPOSITORY [facility] [address] [place], [place] [address] Lead EKG0/01/02 1712#: [id number] Acct: [id number]: CEDRIC HARMAN Rep #: [id number]: 1995 22 [...] sinus rhythm with sinus arrhythmiaNormal ECGConfirmed by ASHLEY FORD, NIKOLAY ([id number]), associate entertainment editor RASHIDA SANTOS ([id number]) on 11/23/2017 1:32:04 PMReferred By : JAIR Confirmed By:NIKOLAY MARLEY MD11/23/17 1332Date Nikolay Marley MDCC: Tommy Castro MD; Johny Wolfe Signed EMERGENCY DEPARTMENT Observed: 11/20/2017 Status: F Source: [place] SUMMARY 7:[address] [facility] REPOSITORY [facility]ITALMedical [facility] [address] [place], [place] [address]Rkizoqafp Department Uvwturr08/06/18 1659MR#: [id number] Acct: [id number]: HARMANABRAM EVANSEDES Roberto Rep #: [id number]: 1995 22 From: Johny Wolfe DOPCP: oTmmy Castro MD Status: REG ER- ER Visit [...] DischargeImpression: 1. DyspneaThis note was generated with ScanScout dictation software. It may contain incorrect words, spelling, [...] your Primary Care Provider. Call [facility] ([phone])or report to the closest Emergency Room.Call 911 if necessary.11/20/171914 <Electronically signed by Johny Castro>Date Johny Kyleosigner Signature (If Indicated): Date CC: Tommy Castro MD CHEST PA AND LATERAL Observed: 11/20/2017 Status: F Source: [place] 6:[address] [facility] REPOSITORY [facility]ITALIma[facility] [address] [place] [address]Yqqmq PA and ChiragMR#: [id number] Acct: [id number]: CEDRIC HARMAN Rep #: [id number]: 1995 F 22 From: aGbriela Medina MDPCP: Tommy Castro MD Status: REG ERStudy: Chest PA and Lateral Date of Exam: 11/20/17Exam# [id number] Ordering Dr: Johny Wolfe DOSTUDY: X-RAY CHESTREASON [...] of the visualized upper abdomen. ORDER #: [id number] RAD/Chest PA and LateralIMPRESSION:No acute cardiopulmonary abnormalities.Electronically Signed:Gabriela Medina MD at 19:00 EDTTel Direct: [phone], Service support , BX: Tommy Castro MD; Johny Wolfe Company Doctor:Signed CBC W/DIFF, AUTOMATED Collected: 11/20/2017 Status: F Source: [place] 5:[address] [facility] REPOSITORY TYPE CODE TESTS RESULT [...] Lymph 1.82 Performed By: #### L100.0100 ####[facility] [address] [place], [address] BASIC METABOLIC Collected: 11/20/2017 Status: F Source: [place] PROFILE (BMP) 5:[address] [facility] REPOSITORY TYPE CODE TESTS RESULT OUT OF RANGE REFERENCE UNITS LAB L501.0100 Normal 74-106 mg/dL GLU 101 Result Comment: Fasting Glucose result from 100 to 125 mg/dLsuggests IMPAIRED HOMEOSTASIS per A.D.A. criteria.Please note revised GLUCOSE reference range /02/2018. LAB L501.1000 Normal 7-18 mg/dL BUN 8 [...] GAP 7 Performed By: #### L500.2500 ####[facility] [address] [facility] [address] [place], [place], [address] D-DIMER QUANTITATIVE Collected: 11/20/2017 Status: F Source: [place] (DVT/PE) 5:[address] [facility] REPOSITORY TYPE CODE TESTS RESULT OUT OF RANGE REFERENCE UNITS LAB L300.8000 Normal 0.27-0.49 FEU/ug/m 0.49 D-DIMER QUANT Result Comment: NORMAL D-Dimer level (<0.50) indicates no DVT or PE. Performed By: #### L300.8000 ####[facility] [address] [facility] [place], [place], [address] ,SERUM,HCG QUALI. Collected: Status: F Source: [place] 11/20/2017 5:[address] [facility] REPOSITORY TYPE CODE TESTS RESULT OUT OF REFERENCE UNITS RANGE LAB L700.7000 Normal 0-9 Nonpreg Negative HCGSQUAL NEGATIVE LAB L700.6700 Normal =>Qualitati mIU/mL HCG Qual < 1 ve triggr Performed By: #### L700.6800 ####[facility] [address] [facility] [place], [place], [address] EMERGENCY DEPARTMENT Observed: 11/05/2017 Status: F Source: [place] SUMMARY 12:[address] [facility] REPOSITORY [facility] [address] [place] [address]Mkvjqgcaa Department Jkhvfxf34/21/18 0905#: [id number] Acct: [id number]: CEDRIC HARMAN Rep #: [id number]: 1995 22 [...] : 1. GastritisThis note was generated with ScanScout dictation software. It may contain incorrect words,spelling, [...] your Primary Care Provider. Call [facility] ([phone])or report to the closest Emergency Room.Call 911 if necessary.11/05/17 1239 < Electronically signed by Kni Lucas MD>Date Kin Lucas MDCosigner Signature (If Indicated): Date CC: Tommy Castro MD CBC W/DIFF, AUTOMATED Collected: 11/05/2017 Status: F Source: [place] 9:[address] [facility] REPOSITORY TYPE CODE TESTS RESULT [...] Lymph 1.77 Performed By: #### L100.0100 ####[facility] [address] [place], [place], [address] COMPREHENSIVE METABOLIC Collected: 11/05/2017 Status: F Source: [place] LESLY 9:[address] [facility] REPOSITORY TYPE CODE TESTS RESULT OUT OF RANGE REFERENCE UNITS LAB L501.0100 Normal 74-106 mg/dL GLU 86 Result Comment: Please note revised GLUCOSE reference range ntptfznap35/02/2018. LAB L501.1000 Normal 7-18 mg/dL BUN 10 [...] 8 Performed By: #### L500.4050, L501.2450 ####[facility] [address] [facility] [place], [address] LIPASE Collected: 11/05/2017 Status: F Source: [place] 9:[address] [facility] REPOSITORY TYPE CODE TESTS RESULT OUT OF RANGE REFERENCE UNITS LAB L501.2450 Normal 73-393 U/L LIPASE 106 Performed By: #### L500.4050, L501.2450 ####[facility] [address] [facility] [place], [address] EMERGENCY DEPARTMENT Observed: 10/28/2017 Status: F Source: [place] SUMMARY 1:[address] [facility] REPOSITORY [facility]ITAL[facility] [address] [place], [place] [address]Idvlrkhee Department Rjywdrq15/13/18 0145MR#: [id number] Acct: [id number]: CEDRIC HARMAN Rep #: [id number]: 1995 22 From: Johny Wolfe DOPCP: Tommy [...] UTI 2. HematuriaThis note was generated with ScanScout dictation software. It may contain incorrect words,spelling, [...] your Primary Care Provider. Call [facility] ([phone])or report to the closest Emergency Room.Call 911 if necessary.10/28/17 0149 <Electronically signed by Johny Castro>Date Johny Wolfe DOCosigner Signature (If Indicated): Date CC: Tommy Castro MD ,URINE Collected: 10/28/2017 Status: F Source: [place] 12:[address] [facility] REPOSITORY Order Comment: Order Date: 10/28/17 TYPE CODE TESTS RESULT OUT OF REFERENCE UNITS RANGE LAB L400.8000 Normal Negative HCGUQUAL Negative Result Comment: Very dilute urine specimens, as indicated by a low specificgravity, may not contain leather goods sales representative levels of hCG.If is still suspected, a first morning urinespecimen should be collected 48 hours later and tested. Performed By: #### L400.7600 ####[facility] [address] [place], [address] URINALYSIS, COMPLETE Collected: 10/28/2017 Status: F Source: [place] 12:[address] [facility] REPOSITORY Order Comment: Order Date: 10/28/17How was Urine Obtained? PHOTOLITHOGRAPHIC STRIPPER TO SPECIFY TYPE CODE TESTS RESULT OUT [...] SEEN URINE Performed By: #### L400.0001 ####[facility] [address] [place], [address] PROGRESS Observed: 10/23/2017 Status: COMPLETED Source: [place] 2:33 PM [facility] REPOSITORY HNO ID: [id number]: Юлия (Scroll Assembler) OlderService: (none) Author Type: Nurse PractitionerType: Progress [...] 22 Wt 96.6kg (213 lb) BMI 37.73 kg/t5Tqmctmw appearance: tired/ill appearing, in no acute distressHead: [...] symptoms occur. Patient agreeable to treatmentplan.Юлия Mcgowan APRN.ERICA ARCE Observed: 10/23/2017 Status: COMPLETED Source: [place] 2:00 PM [facility] REPOSITORY [facility] ---------CEDRIC HARMAN ([id number]) 1995 FDate Time Provider Department10/23/17 2:00 PM SHASHA ЮЛИЯ (ERICA) UCWSTR During your visit today, we recorded the following information about you: Temperature Pulse Respiration Blood pressure 98.6 degrees 88/minute 20/minute 92/56 Weight 96.6 kgNaz DANNY Mcgowan 10/23/2017 2:55 PM SignedCC: Patient presents with:Nasal [...] 20 Wt 96.6 kg(213 lb) BMI 37.73 kg/u9Slflhdl appearance: tired/ill appearing, in no acute distressHead: [...] as directed to help with drippy nose. Rdahzed956-1240es twice daily(plain) may help thin secretions so they are easier tocough up. Those with high blood pressure and not with prostate problems cantry idwx-tse-zsvxmmd Coricidin HBP for congestion.5.) For nasal/sinus congestion [...] are worsening follow up with the officeat [phone] Provider: SELF [200]Allergies As of Date: 10/23/2017(No [...] and not with prostate problems can try aesc-bzn-vmjicdc Coricidin HBP for congestion. 5.) For nasal/sinus [...] worsening follow up with the office at [phone] ordered this encounter Disp Refills Start End [...] Status: F Source: [place] REPORT 4:[address] [facility] REPOSITORY Now [address] [phone] VISITDate of Service: 10/19/17MR#: [id number] Acct: [id number]: CEDRIC HARMAN Rep #: [id number]: 1995 Provider: Reggie Clark/Sex: 22/F [place] [facility] [place]NOWStatus: SignedIntakeVital Signs10/19/17 Height 5 ft 2 inIntakeVisit [...] average body habitus, obeseOrientation: alert, awake, oriented v4XRKUWUdmp: normal to inspectionEars: hearing grossly normal bilaterally, [...] reassessment.Benzonatate as prescribed today.Clear fluids, rest, Tylenol/Claritin dwgn-rnb-qfvutli as needed for symptomatic relief.Follow-up with PCP in 5-7 days should symptoms not improved, sooner should symptoms worsen orany other concerns develop.Patient states acknowledging understanding all of the above.This note was generated with Dragon dictation software. It may contain incorrect words,spelling, and punctuation that were not noted in checking the note before signing.OrdersOrders:MedicationsNew: CodingLevel of Care CodeOff barry north,level 3DiagnosesBronchitis J40URI (upper respiratory infection) J06.9010/19/17 1636 <Electronically signed by Reggie Raya PA>Date Reggie Raya PACosigner Signature: Date (if applicable)CC: EMERGENCY DEPARTMENT Observed: 10/09/2017 Status: F Source: [place] SUMMARY 1:[address] [facility] REPOSITORY [facility] [address] [facility] [place], [place] [address]Etmfxsuit Department Lzpfpfi75/25/18 0039MR#: [id number] Acct: [id number]: CEDRIC HARMAN Rep #: [id number]: 1995 22 [...] cystitis without hemorrhageThis note was generated with ScanScout dictation software. It may contain incorrect words,spelling, [...] your Primary Care Provider. Call [facility] ([phone])or report to the closest Emergency Room.Call 911 if necessary.10/09/17 0110 < Electronically signed by Tae Campbell MD>Date Tae Campbell MDCosigner Signature (If Indicated): Date CC: Tommy Castro MD URINALYSIS, COMPLETE Collected: 10/09/2017 Status: F Source: [place] 12:[address] [facility] REPOSITORY Order Comment: How was Urine Obtained? [...] STARCH CRYSTALS Performed By: #### L400.0001 ####[facility] [address] [place], [address] CBC-COMPLETE BLOOD CNT Collected: 09/19/2017 Status: F Source: [place] NO DIFF 1:[address] [facility] REPOSITORY Order Comment: Order Date: 09/19/17Order Info: 41218-2 - CBC TYPE CODE TESTS RESULT OUT [...] fl MPV 11.6 Performed By: #### L100.0500, L503.6075, L503.6150, L503.6550 ####[facility] [address] [place], [place], [address] IRON BINDING Collected: 09/19/2017 Status: F Source: [facility],TOTAL 1:47 PM [facility]PITAL REPOSITORY Order Comment: Order Date: 09/19/17Order Info: 2500-7 - TIBCOrder Info: 2498-4 - FEOrder Info: 2276-4 - WOLF TYPE CODE TESTS RESULT OUT OF RANGE REFERENCE UNITS LAB L503.6075 Normal 250-450 ug/dL TIBC 444 Performed By: #### L100.0500, L503.6075, L503.6150, L503.6550 ####[facility] [address] [place], [place], [address] IRON Collected: 09/19/2017 Status: F Source: [place] 1:47 PM [facility] HOSPITAL REPOSITORY Order Comment: Order Date: 09/19/17Order Info: 2500-7 - TIBCOrder Info: 2498-4 - FEOrder Info: 2276-4 - WOLF TYPE CODE TESTS RESULT OUT OF RANGE REFERENCE UNITS LAB L503.6150 Normal 50-170 ug/dL IRON 94 Performed By: #### L100.0500, L503.6075, L503.6150, L503.6550 ####[facility] [address] [place], [place], [address] FERRITIN Collected: 09/19/2017 Status: F Source: [place] 1:47 PM [facility] HOSPITAL REPOSITORY Order Comment: Order Date: 09/19/17Order Info: 2500-7 - TIBCOrder Info: 2498-4 - FEOrder Info: 2276-4 - WOLF TYPE CODE TESTS RESULT OUT OF REFERENCE UNITS RANGE LAB L503.6550 Low 8-252 ng/mL FERRITIN 7 Performed By: #### L100.0500, L503.6075, L503.6150, L503.6550 ####[facility] [address] [place], [address] EMERGENCY DEPARTMENT Observed: 09/17/2017 Status: F Source: [place] SUMMARY 6:[address] 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 Deniesany other complaintsPhysical Examination: [] Vital signs reviewedGeneral: Well-nourished well-developedHead: Normocephalic atraumaticEyes: Pupils equal round and reactive to light extraocular movements intactENT: TMs clear no hemotympanum no traumaNeck: Nontender full range of motionCardiovascular: Regular rate rhythm no murmurs normal S1-N7Gmlaibtfnmu: No distress clear to auscultation bilaterally chest [...] pain after fallThis note was generated with ScanScout dictation software. It may contain incorrect words,spelling, and punctuation that were not noted in review of the chart prior to signingED Disposition- Plan for ED Patient:Chief Complaint: FallReferrals:Tommy Castro MD [Primary Care Provider] -What to do if you have ProblemsFor any increased pain, shortness of breath, bleeding, nausea or vomiting, chest pain, or anyunexpected problems, contact your Primary Care Provider. Call [facility] ([phone])or report to the closest Emergency Room.Call 911 if necessary.09/17/17 0645 <Electronically signed by Wil Farr MD>Date Wil Farr [facility] Signature (If Indicated): Date CC: Tommy Castro MD DISCHARGE INSTRUCTION Observed: 09/17/2017 Status: F Source: [place] 6:[address] [facility] RE[facility] [address] [place], [place] [address]Zcuugmsub Vtqpgzzzpnt54/02/18 2351MR#: [id number] Acct: [id number]: CEDRIC HARMAN Rep #: [id number]: 1995 [...] your Primary Care Provider. Call [facility] ([phone])or report to the closest Emergency Room.Call 911 if necessary.09/17/17 0645 <Electronically signed by Wil Farr MD>Date Wil Farr MDCosigner Signature (If Indicated): Date CC: Tommy Castro MD URGENT CARE VISIT Observed: 08/04/2017 Status: F Source: [place] REPORT 11:[address] [facility] REPOSITORY Now [address] [phone] VISITDate of Service: 08/04/17MR#: [id number] Acct: [id number]: CEDRIC HARMAN Rep #: [id number]: 1995 Provider: Raf Clark/Sex: 22/F [place] [facility] [place]NOWStatus: SignedIntakeVital Signs08/04/17 Height 5 ft 4 in08/04/17 [...] tunnel. She states that she has takenseveral sibl-ooc-pnhsyyn medications with no relief. She denies fever, [...] 3DiagnosesAcute non-recurrent maxillary sinusitis J01.00Sinusitis location: maxillaryRecurrence: non-fqimzcdnw70/18/18 1145 <Electronically signed by Raf KURTZ> Date Raf Jarrett PACosigner Signature: Date (if applicable)CC : IRON Collected: 08/01/2017 Status: F Source: [place] 10:[address] [facility] REPOSITORY TYPE CODE TESTS RESULT OUT OF RANGE REFERENCE UNITS LAB L503.6150 Low 50-170 ug/dL IRON 45 Performed By: #### L503.6150 ####[facility] [address] [place], [address] CBC W/DIFF, AUTOMATED Collected: 08/01/2017 Status: F Source: [place] 10:[address] [facility] REPOSITORY TYPE CODE TESTS RESULT [...] Lymph 1.49 Performed By: #### L100.0100 ####[facility] [address] [place], [address] URGENT CARE VISIT Observed: 07/13/2017 Status: F Source: [place]ST[place] REPORT 11:[address] [facility] REPOSITORY Now [address] [phone] VISITDate of Service: 07/13/17MR#: [id number] Acct: [id number]: CEDRIC HARMAN Rep #: [id number]: 1995 Provider: Reggie Clark/Sex: 21/F [facility]: [facility]NOWStatus: SignedIntakeVital Signs07/13/17 Height 5 ft 4 in07/13/17 Weight: 217 lb 8 oz07/13/17 Body Mass Index (BMI) 37.312 Blood Pressure 115/ Blood Pressure Location Rt modpkoe27/27/17 Blood Pressure Position SittingIntakeVisit Reasons: KIDNEY INFECTIONIs [...] Q12H 7 Days #14 cap 07/13/17 [Rx Oqgsihhwz40/27/17]PFSHMedical HistoryUTI (urinary tract infection) (Acute)UTI (urinary tract [...] Appearance: average body habitusOrientation: alert, awake, oriented q2TZUOADwvt: normal to inspectionEars: hearing grossly normal bilaterallyNose: [...] hygiene is reinforced today.Follow-up with PCP or unloading checker in 3-5 days should symptoms not improved, sooner shouldsymptoms worsen or any other concerns develop.Patient states acknowledging understanding all the above.OrdersOrders:MedicationsNew:CodingLevel of Care CodeOff vis,new,level 4DiagnosesUTI (urinary tract infection) N39.012/ 1129 < Electronically signed by Reggie Raya PA>Date Reggie Raya PACosigner Signature: Date (if applicable)CC: YOSEF Observed: 06/23/2017 Status: COMPLETED Source: [place] 12:00 AM [facility] REPOSITORY Telephone (WOOB) -------CEDRIC HARMAN ([id number]) 1995 FDate Time Provider Deonkpkrag96/7/17 DANA PINA WOALYCIA During your visit today, [...] don't think that is necessary anymore.Melissa Murguia FLIGHT TEST SUPERVISOR 06/28/2017 2:18 PM SignedLeft Denise Murguia FLIGHT TEST SUPERVISOR 06/28/2017 2:19 PM SignedLeft detailed message on [...] on 06/27/17 Observed: 06/19/2017 Status: F Source: [place] CULTURE, R/O STREP A 12:[address] [facility] REPOSITORY ROSS CultureNo Streptococcus group A isolated. * This cultures intended use is to screen for Beta Streptococcus A only. All other pathogens and potential pathogens will not be screened for or reported. If a complete workup of all potential pathogens is indicated an order for a routine throat culture is required. Performed By: #### M100.010 ####[facility] [address] [place], [address] PROGRESS Observed: 06/01/2017 Status: COMPLETED Source: SOP[place]OPPY 11:41 AM [facility] REPOSITORY HNO ID: [id number]: Dana WashingtonService: (none)Author Type: PhysicianType: Progress NotesFiled: 06/01/2017 12:32 PMNote Text:Pt here today to evaluate C/S incision which was performed 04/12/17. Ptreports that she noticed her incision was draining small amount of fluidand appeared to be red and swollen. Pt denies fever or chills. 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 Pt [...] MD HOSP Observed: 06/01/2017 Status: COMPLETED Source: [place] 11:30 AM [facility] REPOSITORY Office Visit (WOOB) -------HARMANCEDRIC ([id number]) 1995 FDate Time Provider Xcuvrmcewf72/15/17 11:30 AM DANA PINA During your visit today, we recorded the following information about you: Blood pressure Weight 124/82 100.7 kgDana Palomares MD 06/01/2017 12:32 PM SignedPt here today to evaluate C/S incision which was performed 04/12/17. Pt reportsthat she noticed her incision was draining small amount of fluid and appearedto be red and swollen. Pt denies fever or chills. Pt reports works in [employer] and is worried about MRSA infection. Pt [...] if worsening symptoms or woundopens more.Dana Palomares MDReferring Provider: SELF [200]Allergies As of Date: 06/01/2017(No [...] 06/01/17 PROGRESS Observed: 05/27/2017 Status: COMPLETED Source: [place] 2:27 PM [facility] REPOSITORY HNO ID: [id number]: Alexandre Woody: (none) Author Type: PhysicianType: Progress NotesFiled: 05/27/2017 2:34 PMNote Text: VISITMercedes Roberto Harman is a 21 year old year [...] drainage.PELVIC: external genitalia normal, normal Bartholin's glands, urethra,Croswell's glands, no vulvar lesions, no cervical lesions, good vaginalsupport, physiologic discharge present, normal appearing perineal body andperianal regionBIMANUAL: uterus normal size, shape and consistency, no adnexal masses andnon-tenderNEURO: alert and oriented x3,exam grossly non- focalEXTREMITIES: normalASSESSMENT AND PLAN:21 year old status post CS with normal course.Contraception plan: Oral contraceptivesFollow up: RTC for annual exams and PRNRebecca MD GIDEON HaasOV Observed: 05/27/2017 Status: COMPLETED Source: [place] 2:00 PM [facility] RE[facility] Office Visit (WOOB) -------CEDRIC HARMAN ([id number]) 1995 FDate Time Provider Mxcovacjkq66/10/17 2:00 PM ALEXANDRE WATTERS During your visit today, we [...] n/aPAST MEDICAL HISTORYDiagnosis Date- Chlamydia 2013 and 2017- [...] external genitalia normal, normal Bartholin's glands, urethra, Croswell'sglands, no vulvar lesions, no cervical lesions, good vaginal support,physiologic discharge present, normal appearing perineal body and perianalregionBIMANUAL: uterus normal size, shape and consistency, no adnexal masses andnon-tenderNEURO: alert and oriented x3,exam grossly non- focalEXTREMITIES: normalASSESSMENT AND PLAN:21 year old status post CS with normal course.Contraception plan: Oral contraceptivesFollow up: RTC for annual exams and PRNRebMICHELLE Ramirezefmarion Provider: ALEXANDRE WATTERS [[id number]]Allergies As of Date: 05/27/2017(No Known Allergies)Date Reviewed: [...] 04/2017 2:07 PM >> JANUARY FLORES MA TueMay 27, 2017 2:07 PM Received from: External Pharmacy >> January Flores Ma 05/27/2017 2:07 PM >> JANUARY FLORES MA TueMay 27, 2017 2:07 PM IBUPROFEN 600 MG TABLET >> January Roshni Felix 05/27/2017 2:06 PM >& gt; JANUARY FLORES MA TueMay 27, 2017 2:06 PM No longer taking STOOL SOFTENER ORAL >> January Flores Ma 05/27/2017 2:06 PM >> JANUARY FLORES MA TueMay 27, 2017 2:06 PM No longer taking FAMOTIDINE 20 MG TABLET >> January Roshni Felix 05/27/2017 2:06 PM >& gt; JANUARY FLORES MA TueMay 27, 2017 2:06 PM No longer taking PRE-JUSTINA MULTIVITAMINS/MINERALS ORAL >> January Flores Ma 05/27/2017 2:06 PM >> JANUARY FLORES MA TueMay 27, 2017 2: 06 PM No [...] daily. Disc: Discontinued by PatientLetter Kirill Watters M.D.[facility] [address] [place] [id number]: [phone]/27/2016RE: Cedric Mejia TierraB: 1995To Whom It May Concern:Cedric has been under my care and may return to work with no restrictionson 05/28/2017SinAlexandre henning M.D. Status:Closed by ALEXANDRE WATTERS MD on 05/27/17 CBC W/DIFF, AUTOMATED Collected: 05/20/2017 Status: F Source: [place] 12:[address] [facility] REPOSITORY Order Comment: Order Date: 05/20/17Order Info: [...] L100.0100, L500.4050, L501.9520, L503.6075, L503.6150, L503.6550 ####[facility] [address] [place], [address] COMPREHENSIVE METABOLIC Collected: 05/20/2017 Status: F Source: [place] [facility] 12:[address] [facility] REPOSITORY Order Comment: Order Date: 05/20/17Order Info: [...] L100.0100, L500.4050, L501.9520, L503.6075, L503.6150, L503.6550 ####[facility] [address] [place], [place], [address] THYROID STIM HORMONE Collected: 05/20/2017 Status: F Source: [place] (TSH) 12:[address] [facility] REPOSITORY Order Comment: Order Date: 05/20/17Order Info: 0786-1 - CMPOrder Info: 3016-3 - TSHOrder Info: 2500-7 - TIBCOrder Info: 2498-4 - FEOrder Info: 2276-4 - WOLF TYPE CODE TESTS RESULT OUT OF RANGE REFERENCE UNITS LAB L501.9520 Normal 0.358-3.74 uIU/mL TSH 0.83 Performed By: #### L100.0100, L500.4050, L501.9520, L503.6075, L503.6150, L503.6550 ####[facility] [address] [place], [place], [address] IRON BINDING Collected: 05/20/2017 Status: F Source: [place]EL PEREZ,TOTAL 12:[address] [facility] REPOSITORY Order Comment: Order Date: 05/20/17Order Info: 785-1 - CMPOrder Info: 3015-3 - TSHOrder Info: 2500-7 - TIBCOrder Info: 2498-4 - FEOrder Info: 2276-4 - WOLF TYPE CODE TESTS RESULT OUT OF RANGE REFERENCE UNITS LAB L503.6075 Normal 250-450 ug/dL TIBC 360 Performed By: #### L100.0100, L500.4050, L501.9520, L503.6075, L503.6150, L503.6550 ####[facility] [address] [place], [place], [address] IRON Collected: 05/20/2017 Status: F Source: [place] 12:[address] [facility] REPOSITORY Order Comment: Order Date: 05/20/17Order Info: 07-1 - CMPOrder Info: 6-3 - TSHOrder Info: 2500-7 - TIBCOrder Info: 2498-4 - FEOrder Info: 2276-4 - WOLF TYPE CODE TESTS RESULT OUT OF RANGE REFERENCE UNITS LAB L503.6150 Low 50-170 ug/dL IRON 37 Performed By: #### L100.0100, L500.4050, L501.9520, L503.6075, L503.6150, L503.6550 ####[facility] [address] [place], [address] FERRITIN Collected: 05/20/2017 Status: F Source: [place] 12:[address] [facility] REPOSITORY Order Comment: Order Date: 05/20/17Order Info: 0786-1 - CMPOrder Info: 3016-3 - TSHOrder Info: 2500-7 - TIBCOrder Info: 2498-4 - FEOrder Info: 2276-4 - WOLF TYPE CODE TESTS RESULT OUT OF RANGE REFERENCE UNITS LAB L503.6550 Normal 8-252 ng/mL FERRITIN 19 Performed By: #### L100.0100, L500.4050, L501.9520, L503.6075, L503.6150, L503.6550 ####[facility] [address] [place], [address] XR KNEE 4V AP/PA Observed: 05/09/2017 Status: F Source: [facility]+LAT/TRICE LT 4:24 PM [facility] REPOSITORY * * *Final Report* * *DATE [...] 09 2017 4:29PDictated by : TOMMY DIETZ MDThiadriano examination was interpreted and the report reviewed and electronically signed by: TOMMY DIETZ MD on May 09 2017 4:31PM [id number] PROGRESS Observed: 05/09/2017 Status: COMPLETED Source: [place] 4:10 PM [facility] REPOSITORY HNO ID: [id number]: Moraima ArguetaRtMonse Roca: (none)Author Type: TechnicianType: Progress NotesFiled: 05/09/2017 4:26 PMNote Text: Radiology Service Progress NotePATIENT NAME: Cedric HarmanMRN: [id number] OF SERVICE: May 09, 2017TIME: 4:10 PMPATIENT IDENTITY VERIFICATION COMPLETED USING TWO (2) METHODS: Patientconfirmed name verbally and Date of .PATIENT GENDER DATA: Female. status: : NoBreastfeeding status: NO.PATIENT RELEVANT IMPLANT DATA REVIEWED: Not ApplicableRADIOLOGY DEPARTMENT: General X- ray: Exam(s) Completed: Lower ExtremityX-Ray(s): Knee, AP / Lat / Tunne / Merchant Left and Wt. Bearing:PERIPHERAL IV DATA: Not applicableSIGNED BY: Rehan Angel2016 4:10 PM PROGRESS Observed: 05/09/2017 Status: COMPLETED Source: [place] 3:52 PM [facility] REPOSITORY HNO ID: [id number]: Aureliano Bone: (none)Author Type: Physician AssistantType: Progress NotesFiled: 05/09/2017 4: 55 PMNote Text:05/09/2017Patient presents with:Knee Pain: 1 hour left knee pain after fallSUBJECTIVE: This is a 21 year old that is here today for Complaint(s) ofleft knee pain x 1 hour ago. States she fell in the waiting area at [facility].Landed directly on the front of the knee. [...] of children: 0Occupational HistoryOccupation Employer Commentstna [employer] History Main Topics Smoking status: Never [...] 101.6 kg (224 lb) BMI 40.32 kg/ r2WEURNZDDOV Well appearing, alert, in no acute distress, [...] Alfred-05/09/2017 CNOV Observed: 05/09/2017 Status: COMPLETED Source: [place] 3:[address] [facility] [place] REPOSITORY Office Visit (WSTR) ---------HARMANCEDRIC ([id number]) 1995 FDate Time Provider Kmorzythte73/23/17 3:30 PM AURELIANO SIMEON) UCWSTR During your visit today, we recorded the following information about you: Temperature Pulse Respiration Blood pressure 99.3 degrees 88/minute 16/minute 110/60 Weight 101.6 kgAureliano Simeon PA-C 05/09/2017 4:55 PM Ktxdyo6105/09/2017Patient presents with:Knee Pain: 1 hour left knee pain after fallSUBJECTIVE: This is a 21 year old that is here today for Complaint(s) of leftknee pain x 1 hour ago. States she fell in the waiting area at [facility]. Landeddirectly on the front of the knee. [...] of children : 0Occupational HistoryOccupation Employer Commentstna [employer] History Main Topics Smoking status: Never [...] 16 Wt101.6 kg (224 lb) BMI 40.32 kg/c2POMIHIBBBP Well appearing, alert, in no acute distress, [...] Known Allergies)Date Reviewed: 05/09/2017Reviewed by: Renetta Lucio FLIGHT TEST SUPERVISOR - Fully AssessedReason for Visit: Knee Pain [132] Cmt: 1 hour left knee pain after fallPrimary Visit Diagnosis:Left knee injury, initial encounter [S89.92XA]Order(s):XR KNEE GENERAL 4V AP BOTH/PA BOTH/LAT/MERC LT [[id number]] Order #: [id number] FUTUREPrescriptions as of 05/09/2017 Sig: METRONIDAZOLE 500 [...] 05/09/17 HOSP Observed: 05/09/2017 Status: COMPLETED Source: [place] 3:00 PM [facility] REPOSITORY Office Visit (WOOB) -------CEDRIC HARMAN ([id number]) 1995 FDate Time Provider Cemjjtgfmb20/23/17 3:00 PM VAISHALI ROSALES) WOOB During your visit today, we recorded the following information about you: Blood pressure Weight 132/76 101.6 kgVaishali Rosales CNM 05/09/2017 3:21 PM Nidia Roberto Harman is a 21 year old female who presents for problem visit forvaginal discharge.HPI: Vaginal discharge with odor that started 2 days ago. C/S on 04/12/17.[place] 2 days ago. Discharge was present prior [...] Number of children: 0Occupational HistoryOccupation Employer Commentstna [employer] History Main Topics Smoking status: Never [...] external genitalia normal, normal Bartholin's glands, urethra, Croswell'sglands, no vulvar lesions, no cervical lesions, good [...] out by ISIDRO Pace. Patient to go [facility] for evaluation.Jaci Purvis Nd 05/09/2017 4:56 PM SignedCedric Mejia Ghazal is here for an appointment today with [...] [O98.31*INVALID FOR*04/27/2017 More...Visit Notes:>> Katelynn Horta Ma Yancy May 09, 2017 4:49 PM Status: Nidia Harman is here for an appointment today with GIDEON PurvisMand experienced a fall during her clinical visit. [...] .Follow-up and Disposition History RecordedEncounter Number : [id number] Status:Closed by VAISHALI ROSALES on 05/09/17 PROGRESS Observed: 05/09/2017 Status: COMPLETED Source: [place] 2:59 PM [facility] REPOSITORY [facility] ID: [id number]: Vaishali RosalesService: (none)Author Type: MidwifeType: Progress NotesFiled: 05/09/2017 3:21 PMNote Text:Cedric Harman is a 21 year old female who presents for problem visitfor vaginal discharge.HPI: Vaginal discharge with odor that started 2 days ago. C/ S on 04/12/17.[place] 2 days ago. Discharge was present prior [...] Number of children: 0Occupational HistoryOccupation Employer Commentstna [employer] History Main Topics Smoking status: Never [...] discharge.PELVIC: external genitalia normal, normal Bartholin's glands, urethra,Croswell's glands, no vulvar lesions, no cervical lesions, [...] out by ISIDRO Pace. Patient to go [facility] for evaluation.Vaishali Rosales CNM PROGRESS Observed: 04/27/2017 Status: COMPLETED Source: [place] 11:27 AM [facility] REPOSITORY HNO ID: [id number]: Alexandre Woody: (none) Author Type: PhysicianType: Progress NotesFiled: 04/27/2017 11:44 AMNote Text: VISITCedric Harman is a 21 year old [...] of children: 0Occupational HistoryOccupation Employer Commentstna [employer] History Main Topics Smoking status: Never [...] f/u for 6 week visit or prnvistaril Rickieeboscar Watters MD CNOV Observed: 04/27/2017 Status: COMPLETED Source: [place] 11:20 AM [facility] REPOSITORY Office Visit (WOOB) -------CEDRIC HARMAN ([id number]) 1995 [facility] Time Provider Myefdjfmpi97/11/17 11:20 AM ALEXANDRE WATTERS During your visit today, we recorded the following information about you: Blood pressure Weight 118/78 100.2 kgRebecaelna Watters MD 04/27/2017 11:44 AM SignedPOSTPARTUM VISITMerceddorcas Harman is a 21 year old [...] Number of children: 0Occupational HistoryOccupation Employer Commentstna [employer] History Main Topics Smoking status: Never [...] f/u for 6 week visit or prnvistaril prnRebJeni Ramirez Provider: SELF [200]Allergies As of Date: 04/27/2017(No [...] 04/27/2018) .Follow-up and Disposition History RecordedEncounter Number: [id number] Status:Closed by ALEXANDRE WATTERS MD on 04/27/17 PROGRESS Observed: 04/21/2017 Status: COMPLETED Source: [place] 4:[address] [facility] REPOSITORY HNO ID: [id number]: Bushra Abarca: (none) Author Type: PhysicianType: Progress NotesFiled: 04/21/2017 4:54 PMNote Text:Cedric Harman is a 21 year old female who presents for incisiondrainage.HPI: Patient reports some red fluid from her incision AND thinks a differentspot is opening. Depression is stable. States she is worried d/t friendsc-section incision complications.PAST MEDICAL HISTORYDiagnosis Date- Chlamydia 2013 and 2017- [...] Number of children: 0Occupational HistoryOccupation Employer Commentstna [employer] History Main Topics Smoking status: Never [...] MD HOSP Observed: 04/21/2017 Status: COMPLETED Source: [place] 4:00 PM [facility] REPOSITORY Office Visit (WOOB) -------CEDRIC HARMAN ([id number]) 1995 [facility] Time Provider Hqlvppevcr98/5/17 4:00 PM BUSHRA WHITE During your visit today, we recorded the following information about you: Temperature Blood pressure Weight 99.4 degrees 126/90 103.8 kgBushra White MD 04/21/2017 4:54 PM Nidia Roberto Harman is a 21 year old female [...] Number of children: 0Occupational HistoryOccupation Employer Commentstna [employer] History Main Topics Smoking status: Never [...] evidence infection or openingF/u next week or Jeni Miller Provider: BUSHRA WHITE [[id number]]Allergies As of Date: 04/21/2017(No Known Allergies)Date Reviewed: [...] 04/21/17 PROGRESS Observed: 04/19/2017 Status: COMPLETED Source: [place] 4:10 PM [facility] REPOSITORY HNO ID: [id number]: Bushra WhiteService: (none) Author Type: PhysicianType: Progress NotesFiled: 04/19/2017 5:03 PMNote Text:Cedric Harman is a 21 year old female who presents for depression ANDincision check.HPI: Patient is depressed AND wants to increase her prozac. Denies SI/HI ANDloves her baby girl. She is concerned about incision drainage.PAST MEDICAL HISTORYDiagnosis Date- Chlamydia 2013 and 2017- [...] Number of children: 0Occupational HistoryOccupation Employer Commentstna [employer] History Main Topics Smoking status: Never [...] healthy incisionF/u next week as scheduled or Ramon White MD CNOV Observed: 04/19/2017 Status: COMPLETED Source: [place] 4:10 PM [facility] REPOSITORY Office Visit (WOOB) -------CEDRIC HARMAN ([id number]) 1995 FDate Time Provider Tastlcikqi81/3/17 4:10 PM BUSHRA WHITE During your visit today, we recorded the following information about you: Blood pressure 132/ 80Bushra White MD 04/19/2017 5:03 PM SignedMergersondorcas Harman is a 21 year old female [...] Number of children: 0Occupational HistoryOccupation Employer Commentstna [employer] History Main Topics Smoking status: Never [...] scheduled or Jeni Miller Provider: ALEXANDRE WATTERS [[id number]] Allergies As of Date: 04/19/2017(No Known Allergies)Date [...] daily. Disc: Patient chooses alternative therapyEncounter Number: [id number] Status:Closed by BUSHRA WHITE MD on 04/19/17 DISCHARGE SUMMARY Observed: 04/15/2017 Status: F Source: [place] 8:[address] [facility] [address] [place], [place] [address]Qljaevkfm Saeljfj45/29/17 0741MR#: [id number] Acct: [id number]: CEDRIC HARMAN Rep #: [id number]: 1995 21 From: Alexandre Watters MDPCP: Kishore Medina MD Status: ADM IN YLocation: WP [id number] Date and DiagnosisDate of Admission: 04/11/17Date of [...] an appointment for an incision check in1-2 [phone]: You will need a post check in 6 weeks.Meaningful Use InfoMeaningful Use Diagnoses (Choose all that apply): None hpthnnuujg52/29/ 17 0849 <Electronically signed by Alexandre Watters MD>Date Alexandre Watters [facility] Signature (if applicable): Date CC: Kishore Medina MD; Alexandre Watters MD Signed DISCHARGE INSTRUCTION Observed: 04/15/2017 Status: F Source: [place] 7:[address] [facility] REPOS[facility]ORY [facility] [address] [place] [address]Tkhuvgvvtggk for Home/Discharge Fqaarliobltb74/29/17 0734MR #: [id number] Acct: [id number]: CEDRIC HARMAN Rep #: [id number]: 1995 21 [...] an appointment for an incision check in1-2 [phone]: You will need a post check in 6 weeks.Primary Care Physician:Kishore Medina MD [Primary Care Provider] -04/15/17 0770 <Electronically signed by Alexandre Watters MD>Date Alexandre Watters [facility]: Kishore Medina MD PROGRESS Observed: 04/14/2017 Status: COMPLETED Source: [place] 3:41 PM [facility] REPOSITORY HNO ID: [id number]: Sol Barnes LPNService: (none)Author Type: (none)Type: Progress NotesFiled: 04/14/2017 3:42 PMNote Text :Pt delivered via C/S at [facility] on 04/12/[address] Watters. See OB Outcomenote. Sol Barnes FLIGHT TEST SUPERVISOR CBC-COMPLETE BLOOD CNT Collected: 04/14/2017 Status: F Source: [place] NO DIFF 3:[address] [facility] REPOSITORY TYPE CODE TESTS RESULT [...] MPV 10.9 Performed By: #### L100.0500 ####[facility] [address] [place], [address] HOSP Observed: 04/14/2017 Status: COMPLETED Source: [place] 12:00 AM [facility] REPOSITORY Patient Update (WOOB) -------CEDRIC HARMAN ([id number]) 1995 [facility] Time Provider Department04/14/17 ALEXANDRE WATTERS During your visit today, we recorded the following information about you:Sol Barnes LPN 04/14/2017 3 :42 PM SignedPt delivered via C/S at [facility] on 04/12/[address] Watters. See OB [...] F Source: [place] NO DIFF 5:[address] [facility] REPOSITORY Order Comment: Comments: Day #1Reason for [...] MPV 11.5 Performed By: #### L100.0500 ####[facility] [address] [place], [address] OPERATIVE REPORT Observed: 04/12/2017 Status: F Source: [place] 8:[address] [facility] RE[facility]ITORY [facility] [address] [facility] [place], [place] [address]Lxqcsxigf Ipsuwu84/26/17 2014MR#: [id number] Acct: [id number]: CEDRIC HARMAN Rep #: [id number]: 1995 21 From: Alexandre Watters MDPCP: Kishore Medina MD Status: ADM IN YLocation: WP [id number]-Amanaqm DeliveryC- Section Classification: ASAPFinal ANDREW: 04/12/17Final ANDREW Source: US <20 weeksGestational age: 40 Weeks and 0 DaysDate of Procedure: 04/12/17Pre-op Diagnosis: - - arrest of dilation, failed inductionPost-Op Diagnosis: - - sameSurgery/Procedure Performed: Primary low transverse SectionAnesthesiologist: Vicente Zaidiype of Anesthesia: EpiduralOR Agricultural Extension Officer: Spencer Crawford AIndications:arrest of dilation, failed inductionDescription of Procedure:[facility] and [facility] in normal [...] nares were bulb suctioned,the was vigorous. The infant was stimulated, delayed cord clamping was performed thenthe was handed off.The placenta was delivered w/ [...] closed with 4-0 vicryl suture by the CHEESE PROCESSOR with me present in the labor anddelivery [...] YesPre-op Antibiotic Given: Ancef 2 grams IV y4Yynzrnzedtaai: None- Admit VTE DocumentationVTE Present on Admission: NoVTE Mechan Device Prophylaxis: SCD'sVTE Pharm Prophylaxis ordered?: Yes04/12/172020 <Electronically signed by Alexandre Watters MD& gt;Date Alexandre Watters MDCC: Kishore Medina MD; Alexandre Watters MD Signed HISTORY AND PHYSICAL Observed: 04/11/2017 Status: F Source: [place] EXAM 9:[address] [facility] REPOSITORY [facility] [address] [facility] [place] [address]Ssaitdn and Ihlkbjkf10/25/172121MR#: [id number] Acct: [id number]: CEDRIC HARMAN Rep #: [id number]: 1995 [...] mg IV Q3H PRN PRNPRN Reason: PAIN (4-10/10)Ondansetron HCl (Zofran) 4 mg IV Q8H PRN [...] 140's mod kyrie, + accels, no decels. Ravenel: irregularGeneral: Alert, Oriented r6Omqsffs: Soft, Non Tender, GravidEstimated gestational size: Appropriate for gestational sizeFetal Presentation: CephalicCervix Dilation (cm): 1Station: -3Effacement (%): 75Assessment/Mlnx20to @ 39.6 wks, SROM at home1) Admit to L AND D, IOL with pitocin2) IFM placed- difficult to monitor fhr consistently3) PN labs reviewed, GBS + will treat with PCN when active labor ensues A+, HIV neg, HEP B neg,Rub imm, Syphilis negative4) Epidural if requested for pain04/11/172126 <Electronically signed by Dana Palomares MD&gt ;Date Dana Palomares MDCosigner Signature (if applicable): Date CC: Dana Palomares MD; Kishore Medina MD Signed CBC-COMPLETE BLOOD CNT Collected: 04/11/2017 Status: F Source: [place] NO DIFF 9:[address] [facility] REPOSITORY TYPE CODE TESTS RESULT [...] MPV 11.9 Performed By: #### L100.0500 ####[facility] [address] [place], [address] TYPE AND SCREEN Collected: 04/11/2017 Status: F Source: [place] 9:[address] [facility] REPOSITORY Order Comment: Reason for Type AND Screen/Red Cells: TYPE CODE TESTS RESULT OUT OF RANGE REFERENCE UNITS LAB B10.0800 Normal A BLOOD TYPE POSITIVE GEL Result Comment: A POSITIVE LAB B100.4000 Normal Antibody NEGATIVE Screen Result Comment: NEGATIVE Performed By: #### B101.7450 ####[facility] [address] [place], [address] (ROM) RUPTURE OF Collected: 04/11/2017 Status: F Source: [place] [facility] 8:[address] [facility] REPOSITORY Order Comment: REDRAW. PREVIOUS SPECIMEN REJECTED DUE TOQNS. 04/11/172016 TYPE CODE TESTS RESULT OUT OF REFERENCE UNITS RANGE LAB L205.1310 High Negative ROM POSITIVE Result Comment: Amniotic fluid present indicates rupture of Membranes.RESULTS CALLED TO [facility] 04/11/172045 Arlyn Yee.REPORT READ BACK BY SAME . Performed By: #### L205.1000 ####[facility] [address] [place], [address] CBC AND DIFFERENTIAL Collected: 04/11/2017 Status: F Source: [place] 12:48 PM [facility] [place] REPOSITORY TYPE CODE TESTS RESULT OUT OF [...] k/uL Abs Lymph 1.53 LAB AMONO % [place]% 4.9 LAB AAMONO 0.00-0.86 k/uL Abs [place] 0.51 LAB AEOS % Eosin% 0.5 LAB AAEOS 0.00-0.45 k/uL Abs Eosin 0.05 LAB ABASO % Baso% 0.3 LAB AABASO 0.00-0.10 k/uL Abs Baso 0.03 LAB AUNRBC 0 /100 WBC NRBCs 0.0 LAB ABNRBC 0.00 k/uL Absolute nRBC 0.00 LAB DTYP DTYPE Auto Diff Performed By: #### CBCDIF, ALT, AST, BUN, CRET1, URIC ####[place] [phone] ALT Collected: 04/11/2017 Status: F Source: [place] 12:48 PM [facility] REPOSITORY TYPE CODE TESTS RESULT OUT OF RANGE REFERENCE UNITS LAB ALT 7-38 U/L ALT 12 Performed By: #### CBCDIF, ALT, AST, BUN, CRET1, URIC ####[place] [phone] AST Collected: 04/11/2017 Status: F Source: [place] 12:48 PM [facility] REPOSITORY TYPE CODE TESTS RESULT OUT OF RANGE REFERENCE UNITS LAB AST 13-35 U/L AST 16 Performed By: #### CBCDIF, ALT, AST, BUN, CRET1, URIC ####[place] [phone] BUN Collected: 04/11/2017 Status: F Source: [place] 12:48 PM [facility] REPOSITORY TYPE CODE TESTS RESULT OUT OF RANGE REFERENCE UNITS LAB BUN Low 7-21 mg/dL BUN 5 Performed By: #### CBCDIF, ALT, AST, BUN, CRET1, URIC ####[place] [phone] CREATININE Collected: 04/11/2017 Status: F Source: [place] 12:48 PM [facility] REPOSITORY TYPE CODE TESTS RESULT OUT [...] #### CBCDIF, ALT, AST, BUN, CRET1, URIC ####[place] [id number] [place], [place] [phone] URIC ACID Collected: 04/11/2017 Status: F Source: [place] 12:48 PM [facility] REPOSITORY TYPE CODE TESTS RESULT OUT OF RANGE REFERENCE UNITS LAB URIC 2.5-6.6 mg/dL Uric 4.1 Acid Performed By: #### CBCDIF, ALT, AST, BUN, CRET1, URIC ####[place] [id number] [place], [place] [phone] PROTEIN/CREATININE RATIO Collected: Status: F Source: [place] 04/11/2017 12:48 PM [facility] REPOSITORY TYPE CODE TESTS RESULT OUT OF REFERENCE UNITS RANGE LAB UTPR High 0-20 mg/dL Protein 68 Urine Random LAB UCRR 20-300 mg/dL 216.6 Creatinine,Ur ine,Ran LAB PCRAT High <0.2 0.3 Protein/Creat inine Ratio Performed By: #### PRATIO ####[address] [phone] HOSP Observed: 04/11/2017 Status: COMPLETED Source: SOP[place] 11:15 AM [facility] REPOSITORY Routine Office Visit (WOOB) -------CEDRIC HARMAN ([id number]) 1995 FDate Time Provider Department04/11/17 11:15 AM VAISHALI ROSALES) JOSEPH During your visit today, we recorded the following information about you: Blood pressure Weight 124/70 113.8 kgKatelynn Horta Ma 04/11/2017 11:17 AM SignedSEQUENTIAL SCREENINGSThe [facility] offers sequential screenings for women who are [...] testing. It will require anappointment with our water filtration technician. This is not an ultrasound performedby [...] the above symptoms, contact our office at [phone] andask to speak with a nurse.After hours, you can call doctors registry at [phone] OR call [facility] at [phone] and ask to have the doctor planer stone paged.If you consider this an emergency, dial or go to your nearest emergencydepartment.NEED HELP? Are you dealing with a violent or abusive relationship? Are you avictim of rape or sexual assult? Call [facility] ([place]) 24 hourCrisis Hotline: 962.800.4037 or 084-575- 9763. MANUALYour Guide to a Healthy manual is [...] [Z3A.39] Persistent proteinuria [R80.1]Order(s):URINE OB DIP B/O [[id number]] Order #: [id number] CREATININE BLD [SQCRET] Order #: [id number] FUTURE ALT/SGPT [SQALT] Order #: [id number] FUTURE AST/SGOT BLD [SQAST] Order #: [id number] FUTURE BUN BLOOD [SQBUN] Order #: [id number] FUTURE CBC + DIFF [SQCBCDIF] Order #: [id number] FUTURE URIC ACID BLOOD [SQURIC] Order #: [id number] FUTURE PROTEIN CREATININE RATIO [SQPRATIO] Order #: [id number] F[facility]HYSICAL PROFILE [facility] [ [id number]] Order #: [id number]: 1Prescriptions as of 04/11/2017 Sig: FAMOTIDINE 20 [...] 04/11/2017 11:18 AM >> KATELYNN HORTA MA Apr 11, 2017 11:18 AM Finished.Problem List [...] instructions from your clinician: SEQUENTIAL SCREENINGS [facility] offers sequential screenings for women who are [...] It will require an appointment with our water filtration technician. This is not an ultrasound performed [...] the above symptoms, contact our office at [phone] and ask to speak with a nurse. After hours, you can call doctors registry at [phone] OR call [facility] at [phone] and ask to have the doctor planer stone paged. If you consider this an emergency, dial or go to your nearest emergency department. NEED HELP? Are you dealing with a violent or abusive relationship? Are you a victim of rape or sexual assult? Call [facility] ([place]) 24 hour Crisis Hotline: 796.488.4522 or 679-660-2214. MANUAL Your Guide to a Healthy manual is now on-line. Visit [email or web address] to download your free copyDisposition: Return in about 1 day (around 04/12/2017), or if symptoms worsen or fail to improve, for IKER with NST and U/S for growth and BPP.Follow- up and Disposition History RecordedEncounter Number: [id number] Status:Closed by VAISHALI ROSALES on 04/11/17 HOSP Observed: 04/08/2017 Status: COMPLETED Source: [place] 3:00 PM [facility] REPOSITORY Routine Office Visit (WOOB) -------CEDRIC HARMAN ([id number]) 1995 FDate Time Provider Department04/08/17 3:00 PM ALEXANDRE WATTERS WOOB During your visit today, we recorded the following information about you: Blood pressure Weight 134/82 112.7 kgHayledominick Yarbrough Ma 04/08/2017 2:45 PM SignedSEQUENTIAL SCREENINGSThe [facility] offers sequential screenings for women who are [...] testing. It will require anappointment with our water filtration technician. This is not an ultrasound performedby [...] the above symptoms, contact our office at [phone] andask to speak with a nurse.After hours, you can call doctors registry at [phone] OR call [facility] at [phone] and ask to have the doctor planer stone paged.If you consider this an emergency, dial 9--3 or go to your nearest emergencydepartment.NEED HELP? Are you dealing with a violent or abusive relationship? Are you avictim of rape or sexual assult? Call [facility] ([place]) 24 hourCrisis Hotline: 920.643.6630 or . MANUALYour Guide to a Healthy manual is now on-line. [email or web address]/ HealthyPregnancyGuide to download your free copyReferring Provider: SELF [[id number]]Allergies As of Date: (No Known Allergies)Date Reviewed: 04/08/2017Reviewed by: Lisa Yarbrough Ma - Fully AssessedReason for Visit: Care [86]Primary Visit Diagnosis:Encounter for supervision of normal first in third trimester [Z34.03] Other Visit Diagnosis:39 weeks gestation of [Z3A.39]Order(s):URINE OB DIP B/O [[id number]] Order #: [id number] as of 04/08/2017 Sig: MEDICATION, NON-DATABASE Antibiotic [...] instructions from your clinician: SEQUENTIAL SCREENINGS [facility] offers sequential screenings for women who are [...] It will require an appointment with our water filtration technician. This is not an ultrasound performed [...] the above symptoms, contact our office at [phone] and ask to speak with a nurse. After hours, you can call doctors registry at [phone] OR call [facility] at [phone] and ask to have the doctor planer stone paged. If you consider this an emergency, dial 9-1-4 or go to your nearest emergency department. NEED HELP? Are you dealing with a violent or abusive relationship? Are you a victim of rape or sexual assult? Call [facility] ([facility] 24 hour Crisis Hotline: 148.868.6717 or 584-344-4312. MANUAL Your Guide to a Healthy manual is now on-line. Visit [email or web address]/ HealthyPregnancyGuide to download your free copyEncounter Number: [id number] Status:Closed by ALEXANDRE WATTERS MD on 04/08/17 HOSP Observed: 04/06/2017 Status: COMPLETED Source: [place] 11:20 AM [facility] REPOSITORY Routine Office Visit (WOOB) -------CEDRIC HARMAN ([id number]) 1995 FDate Time Provider Department04/06/17 11:20 AM DANA PINA WOOB During your visit today, we recorded the following information about you:Dana Palomares MD 2016 10:20 AM SignedNST SUMMARYPROVIDER ASSESSMENT AND INTERPRETATIONMercan Harman is [...] times I went to check her.SIGNATURE: MICHELLE Retanaeferring Provider: DANA PINA [[id number]]Allergies As of Date: 04/06/2017( No Known Allergies)Date Reviewed: 04/05/2017Reviewed by: Julisa Benson Np - Fully AssessedPrimary Visit Diagnosis:39 weeks gestation [...] 04/06/17 PROGRESS Observed: 04/06/2017 Status: COMPLETED Source: [place] 10:18 AM [facility] REPOSITORY [facility] ID: [id number]: Dana WashingtonService: (none)Author Type: PhysicianType: Progress NotesFiled: 04/06/2017 10:20 AMNote Text:NST SUMMARYPROVIDER ASSESSMENT AND INTERPRETATIONMercan Harman is a [...] went to check her.SIGNATURE: Dana Palomares MD [facility] Observed: 04/05/2017 Status: COMPLETED Source: [place] 10:30 AM [facility] REPOSITORY Routine Office Visit (WOOB) -------CEDRIC HARMAN ([id number]) 1995 FDate Time Provider Department04/05/17 10:30 AM BUSHRA WHITE During your visit today, we recorded the following information about you: Blood pressure Weight 136/82 112.5 kgHeather Ping Nd 04/05/2017 10:22 AM SignedSEQUENTIAL SCREENINGSThe [facility] offers sequential screenings for women who are [...] testing. It will require anappointment with our water filtration technician. This is not an ultrasound performedby [...] the above symptoms, contact our office at [phone] andask to speak with a nurse.After hours, you can call [facility] registry at [phone] OR call [facility] at [phone] and ask to have the doctor planer stone paged.If you consider this an emergency, dial 9-1-2 or go to your nearest emergencydepartment.NEED HELP? Are you dealing with a violent or abusive relationship? Are you avictim of rape or sexual assult? Call [facility] ([place]) 24 hourCrisis Hotline: 111.950.5607 or . MANUALYour Guide to a Healthy manual is now on-line. [email or web address]/ HealthyPregnancyGuide to download your free copyReferring Provider: GABRIELA OLIVA [[id number]] Allergies As of Date: 04/05/2017(No Known Allergies)Date Reviewed: 04/05/2017Reviewed by: Julisa Benson Hair Assistant - Fully AssessedReason for Visit: Care [86]Primary Visit Diagnosis: Supervision of high risk due to social problems in third trimester [ O09.73] Other Visit Diagnosis:39 weeks gestation of [Z3A.39]Order(s):URINE OB DIP B/O [ [id number]] Order #: [id number] cephALEXin (KEFLEX) 500 mg capsuleTake 1 capsule [...] instructions from your clinician: SEQUENTIAL SCREENINGS [facility] offers sequential screenings for women who are [...] It will require an appointment with our water filtration technician. This is not an ultrasound performed [...] the above symptoms, contact our office at [phone] and ask to speak with a nurse. After hours, you can call doctors registry at [phone] OR call [facility] at [phone] and ask to have the doctor planer stone paged. If you consider this an emergency, dial 1-4- or go to your nearest emergency department. NEED HELP? Are you dealing with a violent or abusive relationship? Are you a victim of rape or sexual assult? Call [facility] [place] ([facility] 24 hour Crisis Hotline: 913.888.4307 or 060-711- 4954. MANUAL Your Guide to a Healthy manual is now on-line. Visit [email or web address] to download your free copyPrescriptions ordered this encounter Disp Refills Start End CEPHALEXIN 500 MG CAPSULE 28 c* 0 04/05/2017 04/12/2017 Class: Med Update Route: ORAL Sig: Take 1 capsule by mouth four times daily for 7 days. Status:Closed by BUSHRA WHITE MD on 04/05/17 Observed: 04/03/2017 Status: F Source: [place] CULTURE, URINE 5:[address] [facility] REPOSITORY Urine CultureORGANISM 1: Mixed Gram Positive OrganismsColony Count 11,000-25,000MIX CULTURE Mixed contaminants. Submit a new specimen if indicated. Performed By: #### M100.0650 ####[facility] [address] [place], [place], [address] URINALYSIS, COMPLETE Collected: 04/03/2017 Status: F Source: [place] 4:[address] [facility] REPOSITORY Order Comment: How was Urine Obtained? PHOTOLITHOGRAPHIC STRIPPER TO SPECIFY TYPE CODE TESTS RESULT OUT [...] 1+ CRYSTAL Performed By: #### L400.0001 ####[facility] [address] [place], [address] PROGRESS Observed: 04/03/2017 Status: COMPLETED Source: [place] 3:38 PM [facility] REPOSITORY HNO ID: [id number]: Bautista Ceballos) Alireza Casey: (none)Author Type: Nurse PractitionerType: Progress NotesFiled: 04/03/2017 [...] Exam CNOV Observed: 04/03/2017 Status: COMPLETED Source: [place] 3:15 PM [facility] REPOSITORY Office Visit (UCWSTR) ---------CEDRIC HARMAN ([id number]) 1995 FDate Time Provider Department04/03/17 3:15 PM BAUTISTA CASEY) UCWSTR During your visit today, we recorded [...] 04/03/2017(No Known Allergies)Date Reviewed: 04/03/2017Reviewed by: Michelle Medellin Ma - Fully AssessedReason for Visit: Back Pain [12] Cmt: 38 weeks and 5 days Primary Visit Diagnosis:Acute midline low back pain without sciatica [M54.5]Order(s):UA DIP B/O [[id number]] Order #: [id number] as of Sig: FAMOTIDINE 20 MG TABLET Take 1 tablet by mouth twice * SERTRALINE 50 MG TABLET Take 1 tablet by mouth once d* PRE-JUSTINA MULTIVITAMINS/MINERAL* Take by mouth. CYCLOBENZAPRINE 5 MG TABLET Take 1 tablet by mouth three *Medication notes this encounter CYCLOBENZAPRINE 5 MG TABLET >> Michelle Medellin Ma 04/03/2017 3:13 PM >> ЮЛИЯ FELIX, MICHELLE Yashira Apr 03, 2017 3:13 PM doneProblem List [...] RUPTURE OF Collected: 03/30/2017 Status: F Source: [place] [facility] 7:[address] [facility] REPOSITORY TYPE CODE TESTS RESULT OUT OF RANGE REFERENCE UNITS LAB L205.1310 Normal Negative ROM Negative Result Comment: Amniotic fluid not present indicates No Rupture of FetalMembranes at time of specimen collection. Performed By: #### L205.1000 ####[facility] [address] [place], [place], [address] PROGRESS Observed: 03/30/2017 Status: COMPLETED Source: [place] 1:33 PM [facility] [place] REPOSITORY HNO ID: [id number]: Alexandre Woody: (none) Author Type: PhysicianType: Progress NotesFiled: 03/30/2017 1:35 PMNote Text:NST SUMMARYPROVIDER ASSESSMENT AND INTERPRETATIONMercan Haramn is a 21 year old female, , who is at 38w1d withan ANDREW of 04/12/2017, by Last Menstrual Period dating method.Indications for NST: Other: Patient not feeling well, mildly elevated BPBaseline: 155Variability: ModerateAccelerations: Present 15 X 15Decelerations : NoneContractions: TOCO: NoneInterpretation: Category I and ReactiveSIGNATURE: Alexandre Watters MD HOSP Observed: 03/30/2017 Status: COMPLETED Source: [place] 11:40 AM [facility] REPOSITORY Routine Office Visit (WOOB) -------CEDRIC HARMAN ([id number]) 1995 FDate Time Provider Department03/30/17 11:40 AM ALEXANDRE WATTERS WOOB During your visit today, we recorded the following information about you: Blood pressure Weight 130/78 113.4 kgTabatha [facility] 03/30/2017 11:46 AM SignedSEQUENTIAL SCREENINGSThe [facility] offers sequential screenings for women who are [...] testing. It will require anappointment with our water filtration technician. This is not an ultrasound performedby [...] the above symptoms, contact our office at [phone] andask to speak with a nurse.After hours, you can call [facility] registry at [phone] OR call [facility] at [phone] and ask to have the doctor planer stone paged.If you consider this an emergency, dial or go to your nearest emergencydepartment.NEED HELP? Are you dealing with a violent or abusive relationship? Are you avictim of rape or sexual assult? Call [facility] ([place]) 24 hourCrisis Hotline: 767.821.3108 or . MANUALYour Guide to a Healthy [...] TOCO: NoneInterpretation: Category I and ReactiveSIGNATURE: Alexandre Watters, MDReferring Provider: GABRIELA OLIVA [[id number]]Allergies As of Date: (No Known Allergies)Date Reviewed: 03/30/2017Reviewed by: January Flores Ma - Fully AssessedReason for Visit: Care [86]Primary Visit Diagnosis:38 weeks gestation of [ Z3A.38] Other Visit Diagnoses:Encounter for supervision of normal first in third trimester [Z34.03] Elevated blood pressure reading without diagnosis of hypertension [R03.0]Order(s):URINE OB DIP B/O [[id number]] Order # : [id number] as of 03/30/2017 Sig: FAMOTIDINE 20 MG [...] instructions from your clinician: SEQUENTIAL SCREENINGS [facility] offers sequential screenings for women who are [...] It will require an appointment with our water filtration technician. This is not an ultrasound performed [...] the above symptoms, contact our office at [phone] and ask to speak with a nurse. After hours, you can call doctors registry at [phone] OR call [facility] at [phone] and ask to have the doctor planer stone paged. If you consider this an emergency, dial 9--1 or go to your nearest emergency department. NEED HELP? Are you dealing with a violent or abusive relationship? Are you a victim of rape or sexual assult? Call [facility] ([place]) 24 hour Crisis Hotline: 766.361.7468 or . MANUAL Your Guide to a Healthy manual is now on-line. Visit [email or web address] to download your free copyFollow Up: Will only call if abnormalDisposition: Return in about 1 week (around 04/06/2017) for routine OB check.Follow-up and Disposition History RecordedClassic SmartForms filed during this visit:Extended VitalsEncounter Number: [id number] Status:Closed by ALEXANDRE WATTERS MD on 03/30/17 CBC-COMPLETE BLOOD CNT Collected: 03/25/2017 Status: F Source: [place] NO DIFF 11:[address] [facility] REPOSITORY TYPE CODE TESTS RESULT [...] MPV 12.1 Performed By: #### L100.0500 ####[facility] [address] [place], [place], [address] LIVER PROFILE Collected: 03/25/2017 Status: F Source: [place] 11:[address] [facility] REPOSITORY TYPE CODE TESTS RESULT [...] By: #### L500.3400, L501.1000, L501.1105, L501.1400 ####[facility] [address] [place], [address] BUN Collected: 03/25/2017 Status: F Source: [place] 11:[address] [facility] REPOSITORY TYPE CODE TESTS RESULT OUT OF RANGE REFERENCE UNITS LAB L501.1000 Low 7-18 mg/dL BUN 5 Performed By: #### L500.3400, L501.1000, L501.1105, L501.1400 ####[facility] [address] [place], [address] SERUM CREATININE AND Collected: 03/25/2017 Status: F Source: [place] GFR 11:[address] [facility] REPOSITORY TYPE CODE TESTS RESULT [...] By: #### L500.3400, L501.1000, L501.1105, L501.1400 ####[facility] [address] [place], [address] URIC ACID Collected: 03/25/2017 Status: F Source: [place] 11:[address] [facility] REPOSITORY TYPE CODE TESTS RESULT OUT OF RANGE REFERENCE UNITS LAB L501.1400 Normal 2.6-6.0 mg/dL URIC 3.8 Result Comment: The drugs N-Acetylcysteine and Metamizole may falselydepress this assay. Performed By: #### L500.3400, L501.1000, L501.1105, L501.1400 ####[facility] [address] [place], [address] HOSP Observed: 03/23/2017 Status: COMPLETED Source: [place] 1:50 PM [facility] REPOSITORY Routine Office Visit (WOOB) -------CEDRIC HARMAN ([id number]) 1995 FDate Time Provider Department03/23/17 1:50 PM DANA PINA During your visit today, we recorded the following information about you: Blood pressure Weight 130/80 112 kgJenny Kelley Ma 03/23/2017 1:41 PM SignedSEQUENTIAL SCREENINGSThe [facility] offers sequential screenings for women who are [...] testing. It will require anappointment with our water filtration technician. This is not an ultrasound performedby [...] above symptoms , contact our office at [phone] andask to speak with a nurse.After hours, you can call doctors registry at [phone] OR [facility] at [phone] and ask to have the doctor planer stone paged.If you consider this an emergency, dial 9--1 or go to your nearest emergencydepartment.NEED HELP? Are you dealing with a violent or abusive relationship? Are you avictim of rape or sexual assult? Call [facility] ([place]) 24 hourCrisis Hotline: 921.303.7474 or 810-622-5564. MANUALYour Guide to a Healthy manual is now on-line. [email or web address]/ HealthyPregnancyGuide to download your free copyReferring Provider: GABRIELA OLIVA [[id number]]Allergies As of Date: (No Known Allergies)Date Reviewed: 03/23/2017Reviewed by: Jenny Kelley Ma - Fully AssessedReason for Visit: Care [86]Primary Visit Diagnosis:Supervision of high risk in third trimester [O09.93] Other Visit Diagnosis:37 weeks gestation of [Z3A.37]Order(s):URINE OB DIP B/O [[id number]] Order #: [id number] as of 03/23/2017 Sig: FAMOTIDINE 20 MG [...] instructions from your clinician: SEQUENTIAL SCREENINGS [facility] offers sequential screenings for women who are [...] It will require an appointment with our water filtration technician. This is not an ultrasound performed [...] the above symptoms, contact our office at [phone] and ask to speak with a nurse. After hours, you can call doctors registry at [phone] OR call [facility] at [phone] and ask to have the doctor planer stone paged. If you consider this an emergency, dial 0-5-4 or go to your nearest emergency department. NEED HELP? Are you dealing with a violent or abusive relationship? Are you a victim of rape or sexual assult? Call [facility] ([place]) 24 hour Crisis Hotline: 821.272.1744 or 011-110-1478. MANUAL Your Guide to a Healthy manual is now on-line. Visit [email or web address]/ HealthyPregnancyGuide to download your free copyEncounter Number: [id number] Status:Closed by DANA WASHINGTON MD on 03/23/17 GC/CHLAMYDIA AMPLIF Collected: 03/15/2017 Status: F Source: [place] 10:40 AM [facility] REPOSITORY TYPE CODE TESTS RESULT OUT OF REFERENCE UNITS RANGE LAB GCCTSR GC/Chlam Amp Cervix Source LAB GCAMPL GC Amplification Negative for Neisseria gonorrhoeae by amplification. LAB CLAMPL Chlamydia Amplif Negative for Chlamydia trachomatis by amplification. Performed By: #### GCCT ####[facility] [place], [place] [phone] GROUP B STREP PCR Collected: 03/15/2017 Status: F Source: [place] 10:40 AM [facility] REPOSITORY TYPE CODE TESTS RESULT OUT OF RANGE REFERENCE UNITS LAB GBPCRT Abnormal Positive for Group Alert GROUP B B Streptococcus by STREP PCR PCR. If susceptibility testing is needed and was not requested with initial test order, call lab ([phone]) within 5 days to initiate workup. Performed By: #### GBPCR ####[facility] [place], [place] [phone] HOSP Observed: 03/15/2017 Status: COMPLETED Source: [place] 10:30 AM [facility] [facility] RE[facility] Routine Office Visit (WOOB) -------CEDRIC HARMAN ([id number]) 1995 [facility] Time Provider Department03/15/17 10:30 AM BUSHRA WHITE WOOB During your visit today, we recorded the following information about you: Blood pressure Weight 134/72 111.2 kgInna Feng Ma 03/15/2017 10:18 AM SignedSEQUENTIAL SCREENINGSThe [facility] offers sequential screenings for women who are [...] testing. It will require anappointment with our water filtration technician. This is not an ultrasound performedby [...] the above symptoms, contact our office at [phone] andask to speak with a nurse.After hours, you can call doctors registry at [phone] OR [facility] at [phone] and ask to have the doctor planer stone paged.If you consider this an emergency, dial 9--6 or go to your nearest emergencydepartment.NEED HELP? Are you dealing with a violent or abusive relationship? Are you avictim of rape or sexual assult? Call [facility] ([place]) 24 hourCrisis Hotline: 932.776.5415 or 105-679- 5654. MANUALYour Guide to a Healthy manual is now on-line. [email or web address]/ HealthyPregnancyGuide to download your free copyReferring Provider: GABRIELA OLIVA [[id number]] Allergies As of Date: 03/15/2017(No Known Allergies)Date Reviewed: 03/15/2017Reviewed by: Inna Feng Ma - Fully AssessedReason for Visit: Care [86]Primary Visit Diagnosis:Encounter for supervision of normal first in third trimester [Z34.03] Other Visit Diagnoses:36 weeks gestation of [Z3A.36] Screen for STD ( sexually transmitted disease) [Z11.3]Order(s):URINE OB DIP B/O [[id number]] Order #: [id number] STREPTOCOCCUS B PCR [SQGBSPCR] Order #: [id number] GC/CHLAMYDIA DNA DET [SQGCCAMP] Order #: [id number] as of 03/15/2017 Sig: FAMOTIDINE 20 MG [...] instructions from your clinician: SEQUENTIAL SCREENINGS The [facility] offers sequential screenings for women who are [...] It will require an appointment with our water filtration technician. This is not an ultrasound performed [...] the above symptoms, contact our office at [phone] and ask to speak with a nurse. After hours, you can call [facility] at [phone] OR call [facility] at [phone] and ask to have the doctor planer stone paged. If you consider this an emergency, dial 9--1 or go to your nearest emergency department. NEED HELP? Are you dealing with a violent or abusive relationship? Are you a victim of rape or sexual assult? Call [facility] ([place]) 24 hour Crisis Hotline: 590.341.5635 or 004-994-4622. MANUAL Your Guide to a Healthy manual is now on-line. Visit [facility].org/ HealthyPregnancyGuide to download your free copyEncounter Number: [id number] Status:Closed by BUSHRA WHITE MD on 03/15/17 EMERGENCY DEPARTMENT Observed: 03/04/2017 Status: F Source: [place] SUMMARY 4:[address] [facility] RE[facility]ITORY [facility] [address] [place], [place] [address]Cocnflqaw Department Owpapfs60/18/17 1527MR#: [id number] Acct: [id number]: CEDRIC HARMAN Rep #: [id number]: 1995 21 [...] your Primary Care Provider. Call Doctors Registry ([phone])or report to the closest Emergency Room.Call 911 if necessary.03/04/17 7173 <Electronically signed by Kin Lucas MD>Date iKn Lucas [facility] Signature (If Indicated): Date CC: Kishore Medina MD FOOT MIN 3 VIEWS Observed: 03/04/2017 Status: F Source: [place] 3:[address] [facility] REPOSITORY [facility] [address] [place] [address]46[address]Jsmp min 3 ViewsMR#: [id number] Acct: [id number]: CEDRIC HARMAN Rep #: [id number]: 1995 F 21 From: Danny Velez MDPCP: Kishore Medina MD Status: DEP ERStudy: Foot min 3 Views Date of Exam: 03/04/17Exam# [id number] Ordering Dr: Kin Lucas MDSTUDY: X-RAY - [...] soft tissue structures are unremarkable. ORDER #: [id number] RAD/Foot min 3 ViewsIMPRESSION:Normal x-ray examination of the foot.Electronically Signed: Danny Velez MD at 16:22 EDTTel , Service support , YR: Kishore Medina MD; Kin Lucas MD Company Doctor:Signed KNEE 1 OR 2 VIEWS Observed: 03/04/2017 Status: F Source: [place] 3:[address] [facility] REPOSITORY [facility] [address] [place], [place] [address]Tevy 1 or 2 ViewsMR#: [id number] Acct: [id number]: CEDRIC HARMAN Rep #: [id number]: 1995 F 21 From: Danny Velez MDPCP: Kishore Medina MD Status: DEP ERStudy: Knee 1 or 2 Views Date of Exam: 03/04/17Exam# [id number] Ordering Dr: Kin Lucas MDSTUDY: X-RAY - [...] the knee.Electronically Signed:Danny Velez MD at 16:23 EDTTel , Service support , IQ: Kishore Medina MD; Kin Lucas MD Company Doctor:Signed CBC-COMPLETE BLOOD CNT Collected: 03/04/2017 Status: F Source: [place] NO DIFF 11:[address] [facility] REPOSITORY TYPE CODE TESTS RESULT [...] By: #### L100.0500, L300.3900, L300.4310, L300.4700 ####[facility] [address] [place], [address] PROTHROMBIN TIME W/INR Collected: 03/04/2017 Status: F Source: [place]RIST[place] 11:[address] [facility] REPOSITORY TYPE CODE TESTS RESULT OUT OF RANGE REFERENCE UNITS LAB L300.4150 Normal 11.7-14.9 SECONDS PROTIME 13.3 LAB L300.4200 Normal INR 1.1 Performed By: #### L100.0500, L300.3900, L300.4310, L300.4700 ####[facility] [address] [place], [address] PARTIAL THROMBOPLAST Collected: 03/04/2017 Status: F Source: [place] TIME 11:[address] [facility] REPOSITORY TYPE CODE TESTS RESULT OUT OF RANGE REFERENCE UNITS LAB L300.4310 Normal 24.1-36.2 Seconds PTT 24.4 Performed By: #### L100.0500, L300.3900, L300.4310, L300.4700 ####[facility] [address] [place], [address] FIBRINOGEN Collected: 03/04/2017 Status: F Source: [place] 11:[address] [facility] REPOSITORY TYPE CODE TESTS RESULT OUT OF RANGE REFERENCE UNITS LAB L300.4700 High 203-444 mg/dl FIB 647 Performed By: #### L100.0500, L300.3900, L300.4310, L300.4700 ####[facility] [address] [place], [address] HOSP Observed: 03/01/2017 Status: COMPLETED Source: [place] 10:40 AM [facility] RE[facility] Routine Office Visit (WOOB) -------CEDRIC HARMAN ([id number]) 1995 FDate Time Provider Department03/01/17 10:40 AM DANA PINA WOOB During your visit today, we recorded the following information about you: Blood pressure Weight 122/72 110.2 kgBethjen Kelley Ma 03/01/2017 10:47 AM SignedSEQUENTIAL SCREENINGSThe [facility] offers sequential screenings for women who are [...] testing. It will require anappointment with our water filtration technician. This is not an ultrasound performedby [...] the above symptoms, contact our office at [phone] andask to speak with a nurse.After hours, you can call doctors registry at [phone] OR call [facility] at [phone] and ask to have the doctor planer stone paged.If you consider this an emergency, dial 9-1-2 or go to your nearest emergencydepartment.NEED HELP? Are you dealing with a violent or abusive relationship? Are you avictim of rape or sexual assult? Call [facility] ([place]) 24 hourCrisis Hotline: 890.816.1268 or . MANUALYour Guide to a Healthy manual is now on-line. Visitst. jose[facility]burg[facility]cl[facility].[email or web address]/ HealthyPregnancyGuide to download your free copyReferring Provider: GABRIELA OLIVA [[id number]] Allergies As of Date: 03/01/2017(No Known Allergies)Date Reviewed: 03/01/2017Reviewed by: Jenny Kelley Ma - Fully AssessedReason for Visit: Care [86]Primary Visit Diagnosis: Supervision of high risk in third trimester [O09.93] Other Visit Diagnosis:34 weeks gestation of [Z3A.34]Order(s):URINE OB DIP B/O [[id number]] Order #: [id number] as of 03/01/2017 Sig: FAMOTIDINE 20 MG [...] instructions from your clinician: SEQUENTIAL SCREENINGS The [facility] offers sequential screenings for women who are [...] It will require an appointment with our water filtration technician. This is not an ultrasound performed [...] the above symptoms, contact our office at [phone] and ask to speak with a nurse. After hours, you can call doctors registry at [phone] OR call [facility] at [phone] and ask to have the doctor planer stone paged. If you consider this an emergency, dial 91-4 or go to your nearest emergency department. NEED HELP? Are you dealing with a violent or abusive relationship? Are you a victim of rape or sexual assult? Call [facility] ([place]) 24 hour Crisis Hotline: 924.986.2199 or 790-977-6247. MANUAL Your Guide to a Healthy manual is now on-line. Visit [facility].org/HealthyPregnancyGuide to download your free copyDisposition: Return in about 2 weeks (around 03/15/2017).Follow-up and Disposition History RecordedEncounter Number: [id number] Status:Closed by DANA WASHINGTON MD on 03/01/17 PROGRESS Observed: 02/23/2017 Status: COMPLETED Source: [place] 4:54 PM [facility] HNO ID: [id number]: Massimo Mckeonice: (none) Author Type: PhysicianType: Progress [...] lb) LMP 07/06/2016 (Exact Date) BMI 43.2 kg/a3OKVGGKNN EXAM: GEN: mildly ill appearing HEENT: PERRL, [...] MD CNOV Observed: 02/23/2017 Status: COMPLETED Source: [place] 4:30 PM [facility] RE[facility] Office Visit (WSTR) ---------CEDRIC HARMAN ([id number]) 1995 FDate Time Provider Department02/23/17 4:30 PM MASSIMO SIMS [facility] During your visit today, we recorded the [...] lb) LMP 07/06/2016 (Exact Date) BMI 43.2 kg/s5GQJZMDSA EXAM: GEN: mildly ill appearing HEENT: PERRL, [...] RAPID STREP TEST B/OContinue supportive care.Massimo Sims, MDReferring Provider: SELF [200]Allergies As of Date: 02/23/2017(No Known Allergies)Date Reviewed: 02/23/2017Reviewed by: Michelle Medellin Ma - Fully AssessedReason for Visit: Mouth Sores [839] Cmt: nausea, headache, chills x couple daysPrimary Visit Diagnosis:Sore throat [J02.9]Order(s):RAPID STREP TEST B/O [[id number]] Order #: [id number] as of 02/23/2017 Sig: FAMOTIDINE 20 MG [...] 02/24/17 PROGRESS Observed: 02/14/2017 Status: COMPLETED Source: [place] 4:24 PM [facility] REPOSIT[facility] HNO ID: [id number]: Timur Jennings) Cooper: (none)Author Type: MidwifeType: Progress NotesFiled: 02/14/2017 4:25 PMNote Text:S: Cedric Harman presents for a routine OB visit at 31w6d. Shedenies LOF, VB , DFM or cramping/contractions.O: See flow sheetA/P: 31w6d IUP. Obesity (BMI> 40). RTO 2 Weeks for follow up. Callwith LOF, VB, DFM or cramping/contractions.1. 31 weeks gestation of - URINE OB DIP B/O(aka UA CHEMSTRIP) [[id number]]2. High-risk , third trimester3. Obesity in BMI=42Renee Gerry Santillan CNM HOSP Observed: 02/14/2017 Status: COMPLETED Source: [place] 1:45 PM [facility] RE[facility] Routine Office Visit (WOOB) -------[facility]EDR[facility] HAR[facility] ([id number]) 1995 [facility] Department02/14/17 1:45 PM TIMUR SANTILLAN ([facility]) JOSEPH During your visit today, we recorded the following information about you: Blood pressure Weight 122/70 107.4 kgTavony Rula Felix 02/14/2017 1:51 PM SignedSEQUENTIAL SCREENINGSThe [facility] offers sequential screenings for women who are [...] testing. It will require anappointment with our water filtration technician. This is not an ultrasound performedby [...] the above symptoms, contact our office at [phone] andask to speak with a nurse.After hours, you can call doctors registry at [phone] OR call [facility] at [phone] and ask to have the doctor planer stone paged.If you consider this an emergency, dial 91-7 or go to your nearest emergencydepartment.NEED HELP? Are you dealing with a violent or abusive relationship? Are you avictim of rape or sexual assult? Call [facility] ([place]) 24 hourCrisis Hotline: 326.171.9650 or 068-333- 5590. MANUALYour Guide to a Healthy manual is [...] - URINE OB DIP B/O(aka UA CHEMSTRIP) [[id number]]2. High-risk , third trimester3. Obesity in BMI= 42Susie Garrett NP InternSOUMYA Gregorioeferring Provider: GABRIELA OLIVA [[id number]] Allergies As of Date: 02/14/2017(No Known Allergies)Date Reviewed: 02/14/2017Reviewed by: Susie Garrett Hair Assistant - Fully AssessedReason for Visit: Care [86]Primary Visit Diagnosis:31 weeks gestation of [Z3A.31] Other Visit Diagnoses:High-risk , third trimester [O09.93] Obesity complicating , third trimester [O99.213 ]Order(s):URINE OB DIP B/O [[id number]] Order #: [id number] as of 02/14/2017 Sig: FAMOTIDINE 20 MG [...] instructions from your clinician: SEQUENTIAL SCREENINGS The [facility] offers sequential screenings for women who are [...] It will require an appointment with our water filtration technician. This is not an ultrasound performed [...] the above symptoms, contact our office at [phone] and ask to speak with a nurse. After hours, you can call doctors registry at [phone] OR call [facility] at [phone] and ask to have the doctor planer stone paged. If you consider this an emergency, dial 7-5-1 or go to your nearest emergency department. NEED HELP? Are you dealing with a violent or abusive relationship? Are you a victim of rape or sexual assult? Call [facility] ([place]) 24 hour Crisis Hotline: 970.791.2701 or 858-998-2702. MANUAL Your Guide to a Healthy manual is now on-line. Visit [facility]/ HealthyPregnancyGuide to download your free copyDisposition: Return in about 2 weeks (around 2016), or if symptoms worsen or fail to improve, for OB visit.Follow-up and Disposition History RecordedEncounter Number: [id number] Status:Closed by TIMUR SANTILLAN CNM on 02/14/17 PROGRESS Observed: 02/02/2017 Status: COMPLETED Source: [place] 9:11 AM [facility] RE[facility]IT[facility] HNO ID: [id number]: Filiberto Boyd RNService: (none) Author Type: (none)Type: [...] 2. Forceps 3. Vacuum extractorPhysician presentations 1. OB-scalping machine operator 2. PediatricianPostpartum 1. Mom's first hour 2. baby's first hour 3. baby's discharge protocolCompleted childbirth education class. Filiberto Boyd RN CNCNPATED Observed: 02/02/2017 Status: COMPLETED Source: [place] 12:00 AM [facility] REPOSITORY Education (WOOB) -------CEDRIC HARMAN ([id number]) 1995 FDate Time Provider Department02/02/[address] [facility] : Class [4072]Progress Notes:Filiberto Boyd [...] 2. Forceps 3. Vacuum extractorPhysician presentations 1. OB-scalping machine operator 2. PediatricianPostpartum 1. Mom's first hour 2. [...] 3HR GEST. Collected: 02/01/2017 Status: F Source: [place] OGTT 10:14 AM [facility] REPOSITORY TYPE CODE TESTS RESULT OUT OF REFERENCE UNITS RANGE LAB GTG0 <95 mg/dL Glucose 74 GST,Fasting LAB GTG1 <180 mg/dL Glucose 145 GST, 1 Hr LAB GTG2 <155 mg/dL Glucose 124 GST, 2 Hr LAB GTG3 <140 mg/dL Glucose 119 GST, 3 Hr Performed By: #### GTGST3 ####[facility] [address] [place], [place] [id number] HOSP Observed: 02/01/2017 Status: COMPLETED Source: [place] 9:20 AM [facility] RE[facility]ITORY Routine Office Visit (WOOB) -------HARMANCEDRIC Roberto ([id number]) 1995 [facility] Provider Department02/01/17 9:20 AM BUSHRA WHITE During your visit today, we recorded the following information about you: Blood pressure Weight 110/74 106.8 kgHayley Linnea Felix 02/01/2017 9:22 AM SignedSEQUENTIAL SCREENINGSThe [facility] offers sequential screenings for women who are [...] testing. It will require anappointment with our water filtration technician. This is not an ultrasound performedby [...] the above symptoms, contact our office at [phone] andask to speak with a nurse.After hours, you can call doctors registry at [phone] OR call [facility] at [phone] and ask to have the doctor planer stone paged.If you consider this an emergency, dial 9-1-1 or go to your nearest emergencydepartment.NEED HELP? Are you dealing with a violent or abusive relationship? Are you avictim of rape or sexual assult? Call [facility] ([place]) 24 hourCrisis Hotline: 872.254.9665 or 711-046- 6853. MANUALYour Guide to a Healthy manual is now on-line. [email or web address]/ HealthyPregnancyGuide to download your free copyReferring Provider: GABRIELA OLIVA [[id number]] Allergies As of Date: 02/01/2017(No Known Allergies)Date Reviewed: 02/01/2017Reviewed by: Lisa Yarbrough Ma - Fully AssessedReason for Visit: Care [86]Primary Visit Diagnosis:Encounter for supervision of normal first in third trimester [Z34.03] Other Visit Diagnosis:30 weeks gestation of [Z3A.30]Order(s):URINE OB DIP B/O [[id number]] Order #: [id number] as of 02/01/2017 Sig: FAMOTIDINE 20 MG [...] instructions from your clinician: SEQUENTIAL SCREENINGS The [facility] offers sequential screenings for women who are [...] It will require an appointment with our water filtration technician. This is not an ultrasound performed [...] the above symptoms, contact our office at [phone] and ask to speak with a nurse. After hours, you can call doctors registry at [phone] OR call [facility] at [phone] and ask to have the doctor planer stone paged. If you consider this an emergency, dial 0-5-6 or go to your nearest emergency department. NEED HELP? Are you dealing with a violent or abusive relationship? Are you a victim of rape or sexual assult? Call [facility] ([place]) 24 hour Crisis Hotline: 824.151.8103 or 331-404-3301. MANUAL Your Guide to a Healthy manual is now on-line. Visit [facility]/ HealthyPregnancyGuide to download your free copyEncounter Number: [id number] Status:Closed by BUSHRA WHITE MD on 02/01/17 ALLERGIES ALLERGIES DATE TYPE / CODE NAME / CODE REACTION SEVERITY SOURCE 01/30/2018 Drug No Known Unknown [facility] Allergy/416 Allergies/[id number] [place] [address] 529117(SNOM 0388(RXNORM) Repository ED CT) 04/11/2017 Drug No Known [facility] Allergy/416 Allergies/B23383 [facility] 217142(SNOM 0388(RXNORM) Repository ED CT) Drug NO KNOWN [facility] Class/54070 ALLERGIES Main [place] 1003(SNOMED Repository CT) ENCOUNTERS ENCOUNTERS ADMIT/DISCHARGE ACCOUNT ADMITTING ENCOUNTER LOCATION SOURCE NUMBER CLASS 01/30/2018 [id number] Ambulatory [facility] ing:LABSPEC Repository 01/30/2018 [id number] Emergency [facility] ing:ED Repository 01/30/2018/01/31/20 [id number] Ambulatory BMSBuilding:B [place] [address] [place].[facility] Repository 01/30/2018 [id number] Ambulatory BMSBuilding:B [place].NOW On License Of [facility] Repository 01/14/2018/01/15/20 [id number] Emergency [address] Hospital ing:ED Repository 11/29/2017/11/30/19 [id number] Ambulatory BMSBuilding:B [place] 18 [place].NOW On License Of [facility] Repository 11/20/2017/11/21/19 [id number] Emergency [place] Hospital ing:ED Repository 11/05/2017/11/06/19 [id number] Emergency [place] Hospital ing:ED Repository 10/28/2017/10/29/19 [id number] Emergency [place] [facility] ing:ED Repository 10/23/2017/10/26/19 [id number] Ambulatory [address] Repository 10/19/2017/10/20/19 [id number] Ambulatory BMSBuilding:B [place] 18 [place].NOW On License Of [facility] Repository 10/09/2017/10/10/19 [id number] Emergency [address] Hospital ing:ED Repository 09/19/2017 [id number] Ambulatory [facility] Hospital ing:MFPLAB Repository 09/16/2017/09/18/19 [id number] Emergency [address] Hospital ing:ED Repository 08/04/2017/08/04/19 [id number] Ambulatory BMSBuilding:B [place] [address] [place].NOW On License Of [facility] Repository 08/01/2017 [id number] Ambulatory [facility] Hospital ing:MFPLAB Repository 07/13/2017/07/13/20 [id number] Ambulatory BMSBuilding:B [place] [address] [place].NOW On License Of [facility] Repository 06/19/2017 [id number] Ambulatory [facility] Hospital ing:LABSPEC Repository 06/19/2017/06/19/20 [id number] Ambulatory BMSBuilding:B [place] [address] [place].NOW On License Of [facility] Repository 06/01/2017/06/03/20 [id number] Ambulatory [address] Repository 05/27/2017/05/31/20 [id number] Ambulatory [address] [place] Repository 05/20/2017 [id number] [facility] 05/09/2017/05/17/20 [id number] Ambulatory [address] [place] Repository 05/09/2017/05/11/20 [id number] Ambulatory [address] [place] Repository 05/09/2017/05/10/20 [id number] Ambulatory [address] [place] Repository 04/27/2017/04/29/20 [id number] Ambulatory [address] [place] Repository 04/21/2017 [id number] Ambulatory [facility] [place] Repository 04/19/2017/04/20/20 [id number] Ambulatory [address] Repository 04/11/2017/04/15/20 [id number] [facility] In[facility] [place] ing:WPRoom: Repository LI635Lgy: 1 04/11/2017 [id number] Ambulatory [facility] [place] Repository 04/11/2017/04/12/20 [id number] Ambulatory [address] [place] Repository 04/10/2017/04/10/20 [id number] [place] [address] [place] [address] ing:WPOUTRoom Repository : WP011 04/08/2017/04/12/20 [id number] Ambulatory [address] [place] Repository 04/06/2017/04/07/20 [id number] Ambulatory [address] [place] Repository 04/05/2017/04/05/20 [id number] Ambulatory [place] [address] [place] [address] ing:WPOUTRoom Repository : WP021 04/05/2017/04/05/20 [id number] Ambulatory [address] [place] Repository 04/03/2017/04/03/20 [id number] Ambulatory [place] ing:WPOUTRoom Repository : WP020 04/03/2017/04/05/20 [id number] Ambulatory [address] [place] Repository 03/30/2017/03/30/20 [id number] Ambulatory [place] Christ[place] [address] [place] [address] ing:WPOUTRoom Repository : WP016 03/30/2017/03/31/20 [id number] Ambulatory [address] Repository 03/25/2017 [id number] [facility] Repository 03/23/2017/03/23/20 [id number] Ambulatory [address] Repository 03/15/2017/03/18/20 [id number] Ambulatory [address] Repository 03/06/2017/03/06/20 [id number] Ambulatory [place] [address] [place] [address] ing:WPOUTRoom Repository : WP015 03/04/2017/03/04/20 [id number] Emergency [place] [address] [place] [address] ing:ED Repository 03/04/2017/03/04/20 [id number] Ambulatory [place] [address] ing:WPOUTRoom Repository : WP012 03/01/2017/03/01/20 [id number] Ambulatory [address] Repository 02/23/2017/02/25/20 [id number] Ambulatory [address] Repository 02/14/2017/02/19/20 [id number] Ambulatory [address] Repository 02/01/2017/02/02/20 [id number] Ambulatory [address] Repository 02/01/2017/02/03/20 [id number] Ambulatory [address] Repository 01/31/2017/02/03/20 [id number] Ambulatory [address] Repository PAYERS PAYERS ENCOUNTER GUARANTOR PAYER SUBSCRIBER SOURCE 01/30/2018 CEDRIC Mejia Primary MARGARET [place] [id number] Insurance:ARMANDOA RUTHB: [facility] [id number]: Repository [address]Rbe: [phone] [id number] [phone] () Date:[id number] [address]SZ: 01/30/2018 Secondary CEDRIC R [place] Insurance:CARESOURCEPo HOWELLDOB: Community licy Number: [id number] [id number] Repository Date:2018-01-30 [address] [address]ATTN: [place] [address]ZF: 01/30/2018 Tertiary NOT GIVENUNK [place] Insurance:SELF PAY [facility] Number: Effective Repository Date:2018-01-30 01/30/2018 CEDRIC R Primary CEDRIC R Christel [id number] Insurance:CARESOURCEPo HOWELLDOB: Community [place] licy [place]: [id number] [id number] Repository [address]Fea: 330) Date:2018-01-30 [phone] () [address]30ATTN: [place] [address]MB: 01/30/2018 Secondary MARGARET WILLIAMSUNK [place] Insurance:[facility] Number: Repository [id number] Date:3813-60-67IV [address] [place] [address]AC: 01/30/2018 Tertiary NOT GIVENUNK [place] Insurance:SELF PAY [facility] Number: Effective Repository Date:2018-01-30 01/30/2018 CEDRIC R Primary MARGARET Christel [id number] [facility] COMMERCIALPolic [id number] Number: Repository [address]Hsa: 330 [id number] [phone] () Date:6475-22-99SN [address] [place] [address]ZM: 01/30/2018 Secondary CEDRIC R [place] Insurance:CARESOURCEPo HOWELLDOB: Community licy Number: [id number] [facility] [id number] Repository Date:2018-01-30 [address]ATTN: [place] [address]OA: 01/30/2018 Tertiary NOT GIVENUNK [place] Insurance:SELF PAY [facility] Number: Effective Repository Date:2018-01-30 01/30/2018 CEDRIC R Primary CEDRIC R [place] [id number] Insurance:CARESOURCEPo HOWELLDOB: Community G[place] licy Number: [id number], [place] [id number] Repository [address]Kcq: 330) Date:2018-01-30P [phone] (HP) [address]30ATTN: [place] [address]QZ: 01/30/2018 Secondary MARGARET WILLIAMSUNK [place] Insurance:[facility] Number: Repository [id number] Date:9363-51-73MS [address] [place] [address]KC: 01/30/2018 Tertiary NOT GIVENUNK [place] Insurance:SELF PAY [facility] Number: Effective Repository Date:2018-01-30 01/14/2018 CEDRIC R Primary CEDRIC R [place] [id number] Insurance:CARESOURCEPo HOWELLDOB: Community GASCHE licy Number: [id number], [place] [id number] Repository [address]Pmr: (330) Date:2018-01-14P [phone] () 2068ATTN: [place] [address]HT: 01/14/2018 Secondary MARGARET WILLIAMSUNK [place] Insurance:[facility] Number: Repository [id number] Date:0621-84-79VZ [address] [place] [address]UN: 01/14/2018 Tertiary NOT GIVENUNK [place] Insurance:SELF PAY [facility] Number: Effective Repository Date:2018-01-14 11/29/2017 CEDRIC R Primary MARGARET [place] [id number] Insurance:[facility]: [facility] [id number], [place] Number: Repository [phone]: 330 [id number] [phone] (HP) Date:3157-05-39JB [address] [place] [address]HP: 11/29/2017 Secondary CEDRIC R [place] Insurance:CARESOURCEPo HOWELLDOB: Community licy Number: [id number] Hospital [id number] Repository Date:2017-11-29P [address]ATTN: [place] [address]NQ: 11/29/2017 Tertiary NOT GIVENUNK [place] Insurance:SELF PAY [facility] Number: Effective Repository Date:2017-11-29 11/20/2017 CEDRIC R Primary MARGARET [place] [id number] Insurance:HUMANA WILLIAMSDOB: [address] [place] [address] [place] Number: Repository [id number]: 330 [id number] [phone] (HP) Date:3916-19-38IC [address] [address]OJ: 11/20/2017 Secondary CEDRIC R [place] Insurance:CARESOURCEPo HOWELLDOB: Community licy Number: [id number] Hospital [id number] Repository Date:2017-11-20P [address]ATTN: [place] [address]WQ: 11/20/2017 Tertiary NOT GIVENUNK [place] Insurance:SELF PAY [facility] Number: Effective Repository Date:2017-11-20 11/05/2017 CEDRIC R Primary MARGARET WILLIAMSUNK [place] [id number] Insurance:[place] Number: Repository [id number]: 330 [id number] [phone] (HP) Date:3353-76-56CL [address] [address]BX: 11/05/2017 Secondary CEDRIC R [place] Insurance:CARESOURCEPo HOWELLDOB: Community licy Number: [id number] Hospital [id number] Repository Date:2017-11-05P [address]ATTN: [place] [address]FN: 11/05/2017 Tertiary NOT GIVENUNK [place] Insurance:SELF PAY [facility] Number: Effective Repository Date:2017-11-05 10/28/2017 CEDRIC Mejia Primary MARGARET [place] [id number] Insurance:[place] Number: Repository [id number]: [phone]) [id number] [phone] () Date:5195-04-02ZV [address] [place] [address]SQ: 10/28/2017 Secondary CEDRIC R [place] Insurance:CARESOURCEPo HOWELLDOB: Community licy Number: [id number] Hospital [id number] Repository Date:2017-10-28P [address]ATTN: [place] [address]ZA: 10/28/2017 Tertiary NOT GIVENUNK [place] Insurance:SELF PAY [facility] Number: Effective Repository Date:2017-10-28 10/19/2017 CEDRIC Mejia Primary MARGARET [place] [id number] Insurance:[place] Number: Repository [id number]: [id number] [phone] Date:2637-23-89TN [address] () [address] [place] [address]TU: 10/19/2017 Secondary CEDRIC R [place] Insurance:CARESOURCEPo HOWELLDOB: Community licy Number: [id number] Hospital [id number] Repository Date:2017-10-19P [address]ATTN: [place] [address]HM: 10/19/2017 Tertiary NOT GIVENUNK [place] Insurance:SELF PAY [facility] Number: Effective Repository Date:2017-10-19 10/09/2017 CEDRIC R Primary MARGARET WILLIAMSRODNEY [place] [id number] Insurance:[place] Number: Repository [address]Eog: [id number] [phone] Date:6890-80-60PF [address] () [address] [place] [address]RH: 10/09/2017 Secondary CEDRIC R [place] Insurance:CARESOURCEPo HOWELLDOB: Community licy Number: [id number] [facility] [id number] Repository Date:2017-10-09P [address]ATTN: [place] [address]HH: 10/09/2017 Tertiary NOT GIVENUNK [place] Insurance:SELF PAY [facility] Hospital Number: Effective Repository Date:2017-10-09 09/19/2017 CEDRIC R Primary MARGARET Christel [id number] Insurance:HUMAN JANNETB: [facility] [id number] Number: Effective Repository [address]Tye: Date:0409-28-80ZJ [address] [phone] [place] [address] 0-3 () [address]YO: 09/19/2017 Secondary CEDRIC R [place] Insurance:CARESOURCEPo HOWELLDOB: Community licy Number: [id number] Hospital [id number] Repository Date:2017-09-19P [address]ATTN: [place] [address]PX: 09/19/2017 Tertiary NOT GIVENUNK [place] Insurance:SELF PAY [facility] Number: Effective Repository Date:2017-09-19 09/16/2017 CEDRIC R Primary MARGARET [place] [id number] Insurance:HUMANA JANNETDOB: [facility] [id number] Number: Effective Repository [address]Qtj: Date:9344-54-66AL [phone] [place] [address] 0-3 (HP) [address]OO: 09/16/2017 Secondary CEDRIC R [place] Insurance:CARESOURCEPo HOWELLDOB: Community licy Number: [id number] Hospital [id number] Repository Date:2017-09-16P [address]ATTN: [place] [address]US: 09/16/2017 Tertiary NOT GIVENUNK [place] Insurance:SELF PAY [facility] Number: Effective Repository Date:2017-09-16 08/04/2017 CEDRIC R Primary MARGARET WILLIAMSRODNEY [place] [id number] Insurance:[place] Number: Repository [id number]: [phone] [id number] [phone] (HP) Date:1728-34-75NO [address] [place] [address]GN: 08/04/2017 Secondary CEDRIC R [place] Insurance:CARESOURCEPo HOWELLDOB: Community licy Number: [id number] Hospital [id number] Repository Date:2017-08-04P [address]ATTN: [place] [address]MW: 08/04/2017 Tertiary NOT GIVENUNK [place] Insurance:SELF PAY [facility] Number: Effective Repository Date:2017-08-04 08/01/2017 CEDRIC R Primary MARGARET [place] [id number] Insurance:[facility]: [facility] [id number], [place] Number: Repository [address]Rtx: [id number] [phone] Date:2382-35-00KN [address] (HP) [address] [place] [address]HH: 08/01/2017 Secondary CEDRIC R [place] Insurance:CARESOURCEPo HOWELLDOB: Community licy Number: [id number] Hospital [id number] Repository Date:2017-08-01P [address]ATTN: [place] [address]QI: 08/01/2017 Tertiary NOT GIVENUNK [place] Insurance:SELF PAY On [facility] Number: Effective Repository Date:2017-08-01 07/13/2017 CEDRIC R Primary CEDRIC R [place] [id number] Insurance:HUMANA HOWELLDOB: Community [place] COMMERCIALPolicy [id number] Number: Repository [address]Hgn: [phone]) [id number] [phone] () Date:9965-41-50DG [address] [place] [address]QV: 07/13/2017 Secondary CEDRIC R [place] Insurance:CARESOURCEPo HOWELLDOB: Community licy Number: [id number] Hospital [id number] Repository Date:2017-07-13P [address]ATTN: [place] [address]TB: 07/13/2017 Tertiary NOT GIVENUNK [place] Insurance:SELF PAY On License [facility] Number: Effective Repository Date:2017-07-13 06/19/2017 CEDRIC R Primary MARGARET [place] [id number] Insurance:HUMANA WILLIAMSDOB: Community [place] COMMERCIALPolicy [id number] Number: Effective Repository [address]Nii: Date:3487-68-28GN [phone] [place] [address] 0-3 (HP) [address]LJ: 06/19/2017 Secondary CEDRIC R [place] Insurance:CARESOURCEPo HOWELLDOB: Community licy Number: [id number] Hospital [id number] Repository Date:2017-06-19P [address]ATTN: [place] [address]SR: 06/19/2017 Tertiary NOT GIVENUNK [place] Insurance:SELF PAY [facility] Number: Effective Repository Date:2017-06-19 06/19/2017 CEDRIC R Primary CEDRIC R [place] [id number] Insurance:HUMANA HOWCRISTINADOB: Community [place] COMMERCIALPolicy [id number] Number: Repository [address]Rdu: [phone]) [id number] [phone] () Date:3355-70-17IA[address] [address]CQ: 06/19/2017 Secondary CEDRIC R [place] Insurance:CARESOURCEPo HOWELLDOB: Community licy Number: [id number] [id number] Repository Date:2017-07-28 [address]ATTN: [place] [address]YP: 06/19/2017 Tertiary NOT GIVENUNK [place] Insurance:SELF PAY [facility] Hospital Number: Effective Repository Date:2017-06-19 05/20/2017 CEDRIC R Primary MARGARET [place] [id number] Insurance:HUMANA JANNETDOB: Community ERIC TIPTON COMM[facility]CIALPol[facility] [id number] Number: Repository [address]Gof: [phone]) [id number] [phone] () Date:9053-18-55GB[address] [address]DS: 05/20/2017 Secondary CEDRIC R [place] Insurance:CARESOURCEPo HOWELLDOB: Community licy Number: [id number] Hospital [id number] Repository Date:2017-01-15P [address]ATTN: [place] [address]DL: 04/11/2017 CEDRIC R Primary MARGARET [place] [id number] Insurance:HUMANA JANNETDOB: Community ERCI DRAPT COMMERCIALPolic [id number] [place] Number: Repository [address]Cuc: [phone] [id number] [phone] () Date:2044-80-25FM[address] [address]MH: 04/11/2017 Secondary CEDRIC R [place] Insurance:CARESOURCEPo HOWELLDOB: Community licy Number: [id number] Hospital [id number] Repository Date:2017-01-15P [address]ATTN: [place] [address]KY: 04/10/2017 CEDRIC R Primary MARGARET [place] [id number] Insurance:HUMANA WILLIAMSDOB: On License Of [facility] ERIC TIPTON [facility] [id number] [place] Number: Repository [address]Rnc: [phone] [id number] [phone] () Date:5214-05-75ET[address] [address]JA: 04/10/2017 Secondary CEDRIC R [place] Insurance:CARESOURCEPo HOWELLDOB: Community licy Number: [id number] Hospital [id number] Repository Date:2017-01-15 [address]ATTN: [place] [address]MA: 04/05/2017 CEDRIC R Primary MARGARET Christel [id number] Insurance:HUMANA JANNETDOB: On License Of [facility] ERIC TIPTON [facility] [id number] [place] Number: Repository [address]Czx: ([phone]) [id number] [phone] () Date:2605-50-77WM[address] [address]YD: 04/05/2017 Secondary CEDRIC R [place] Insurance:CARESOURCEPo HOWELLDOB: Community licy Number: [id number] Hospital [id number] Repository Date:2017-01-15P [address]ATTN: [place] [address]OU: 04/03/2017 CEDRIC R Primary MARGARET [place] [id number] Insurance:HUMANA JANNETDOB: On License Of [facility] ERIC TIPTON [facility] [id number] Number: Repository [address]Gar: [phone] [id number] [phone] () Date:2691-62-39QO [address] [address]DS: 04/03/2017 Secondary CEDRIC R [place] Insurance:CARESOURCEPo HOWELLDOB: On License Of [facility] licy Number: [id number] Hospital [id number] Repository Date:2017-01-15 [address]ATTN: [place] [address]WS: 03/30/2017 CEDRIC R Primary MARGARET Christel [id number] Insurance:BREANNA POWERDOB: On License Of [facility] ERIC TIPTON [facility] [id number] [place] Number: Repository [address]Wze: [phone] [id number] [phone] () Date:0366-23-91IN[address] [address]EM: 03/30/2017 Secondary CEDRIC R [place] Insurance:CARESOURCEPo HOWELLDOB: Community licy Number: [id number] Hospital [id number] Repository Date:2017-01-15P [address]ATTN: [place] [address]BH: 03/25/2017 CEDRIC R Primary MARGARET [place] [id number] Insurance:HUMANA JANNETDOB: On License Of [facility] ERIC TIPTON [facility] [id number], [place] Number: Repository [address]Znt: [phone]) [id number] [phone] () Date:8312-22-07BJ[address] [address]GR: 03/25/2017 Secondary CEDRIC R [place] Insurance:CARESOURCEPo HOWELLDOB: Community licy Number: [id number] Hospital [id number] Repository Date:2017-01-15P [address]ATTN: [place] [address]KE: 03/06/2017 CEDRIC R Primary MARGARET Christel [id number] Insurance:HUMANA JANNETDOB: Community ERIC DRAPT COMMERCIALPolicy [id number] Number: Repository [address]Bam: (978) [id number] [phone] () Date:4855-92-48PA[address] [address]QK: 03/06/2017 Secondary CEDRIC R [place] Insurance:CARESOURCEPo HOWELLDOB: Community licy Number: [id number] Hospital [id number] Repository Date:2017-01-15 [address]ATTN: [place] [address]VE: 03/04/2017 CEDRIC R Primary MARGARET Christel [id number] Insurance:HUMANA JANNETDOB: Community ERIC DRAPT [facility] [id number] Number: Repository [address]Sdf: 330 [id number] [phone] () Date:6721-84-33YC[address] [address]EY: 03/04/2017 Secondary CEDRIC R [place] Insurance:CARESOURCEPo HOWELLDOB: Community licy Number: [id number] Hospital [id number] Repository Date:2017-01-15P [address]ATTN: [place] [address]IM: 03/04/2017 CEDRIC R Primary MARGARET [place] [id number] Insurance:HUMANA WILLIAMSDOB: Community ERIC DRAPT COMMERCIALPolicy [id number] Number: Repository [address]Eal: ([phone]) [id number] [phone] () Date:4720-30-55[address]PKRKMFWVZ, [place] [address]AU: 03/04/2017 Secondary CEDRIC [place] Insurance:DAYANARAJustice HOUSEB: Community licy Number: [id number] Hospital [id number] Repository Date:2017-01-15 [address]ATTN: [place] [address]PL:
--- NOTE | 2018-01-30 19:33 | ED.VISSUMM ---
- ER Visit Summary Date of Service: 01/30/18 Chief Complaint: Lower back pain History of Present Illness: The patient is a 22 F who presents with lower back pain. It began earlier today. She complains of pain in her lower back on both sides right greater than left. However she also complains of urinary frequency. The pain is worse with bending. She was seen at an urgent care and had a normal urinalysis. Physical Examination: Afebrile vitals are stable Moist mucous membranes Heart regular rate and rhythm Lungs are clear Abdomen soft Bilateral paraspinal lumbar tenderness Alert Test Results: Urinalysis normal and negative. Emergency Department Course and Treatment: I do believe this is due to a musculoskeletal etiology. She was given naproxen here and a prescription for the same. She was discharged. She understands to return for new or worsening symptoms and was instructed on specific symptoms to monitor for, conditions under which to return to the emergency department and she was discharged home. Treatment Plan: [] Disposition: Discharge Impression: Lower back pain This note was generated with [employer] dictation software. It may contain incorrect words, spelling, and punctuation that were not noted in review of the chart prior to signing ED Disposition - Plan for ED Patient: Chief Complaint: Flank Pain Referrals: Austin Castro MD [Primary Care Provider] -
--- NOTE | 2018-01-30 19:35 | ED.DEP ---
ED Disposition - Plan for ED Patient: Chief Complaint: Flank Pain Instructions: ED Sprain Strain Lumbar Prescriptions: Naproxen [Naprosyn] 500 mg PO BID #20 tab Referrals: Austin Castro MD [Primary Care Provider] -
[2018-01-30 19:45] VITALS: BP 136/72; PULSE 80; RESP 18; O2SAT 96
== END 2018-01-30 19:46 | disposition home or self-care (01) ==
PROVIDERS: Emergency Provider Emergency Medicine; Family Provider Family Medicine; PCP Family Medicine
DX: M54.5 Low back pain (principal); F41.9 Anxiety disorder, unspecified; F32.9 Major depressive disorder, single episode, unspecified; Z79.899 Other long term (current) drug therapy
CPT/HCPCS: 81001; 81025; 99282

== ENCOUNTER → 2018-01-30 18:04 | Outpatient (CLI) | payer OTHER, MEDICAID, SELFPAY ==
[2018-01-30 18:06] LABS: Bacteria 0 SEEN /hpf (None Seen); Mucous, Urine 0 SEEN /hpf (<or=2+); White Blood Cells 0 SEEN /hpf (0-5)
[2018-01-30 19:00] LABS: Color, Urine Yellow (Yellow); Glucose, Dipstick Normal (Normal); Ketone-Dipstick Negative (Negative); Leukocyte Esterase-Dipstick Negative /ul (Negative); Nitrite-Dipstick Negative (Negative); Occult Blood-Urine 50 /ul (Negative); Protein-Dipstick Negative (Negative); Urine Bilirubin Dipstick Negative (Negative); Urine Clarity Clear (Clear); Urine Urobilinogen Normal (Normal)
[2018-01-30 19:14] LABS: Red Blood Cells-Urine 0-5 SEEN /hpf (0-5); Squamous Epithelial Cells - UA 0-5 SEEN /hpf (5-10)
== END ==
PROVIDERS: Visit Provider Physician Assistant
DX: R35.0 Frequency of micturition (principal)
CPT/HCPCS: 81001; 87077; 87086; 87088; 87186

== ENCOUNTER 2018-03-25 20:27 | Emergency (ER) | payer OTHER, SELFPAY ==
[2018-03-25 20:30] VITALS: BP 147/79; PULSE 94; RESP 15; TEMP 36.1; O2SAT 94; BMI 37.5
--- NOTE | 2018-03-25 20:42 | ED.RN ---
this rn contacted [facility] for pt.
[2018-03-25 21:12] VITALS: BP 132/74; PULSE 72; RESP 16; O2SAT 98
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
--- NOTE | 2018-03-25 21:14 | ED.DEP ---
ED Disposition - Plan for ED Patient: Chief Complaint: Back Instructions: ED Sprain Strain Lumbar Referrals: Austin Castro MD [Primary Care Provider] - [facility] [GROUP OF PHYSICIANS] -
== END 2018-03-25 21:52 | disposition home or self-care (01) ==
PROVIDERS: Emergency Provider Emergency Medicine; PCP Family Medicine
DX: S39.012A Strain of muscle, fascia and tendon of lower back, initial encounter (principal); X50.0XXA Overexertion from strenuous movement or load, initial encounter; Y93.89 Activity, other specified; Y92.89 Other specified places as the place of occurrence of the external cause; Y99.0 Civilian activity done for income or pay
CPT/HCPCS: 99282

== ENCOUNTER 2018-04-03 22:23 | Emergency (ER) | payer OTHER, MEDICAID, SELFPAY ==
[2018-04-03 22:24] VITALS: BP 124/76; PULSE 96; RESP 18; TEMP 36.4; O2SAT 98; BMI 37.4
--- NOTE | 2018-04-03 23:00 | RAD_ITS ---
STUDY: X-RAY CHEST REASON FOR EXAM: Female, 22 years old. Cough. TECHNIQUE: PA and lateral views of the chest. COMPARISON: November 20, 2017 FINDINGS: The lungs are clear and expanded. There is no demonstrated pleural abnormality. Normal size heart. Normal mediastinum and eduar. Normal visualized pulmonary arteries. Normal visualized aortic arch and descending thoracic aorta. Normal visualized thoracic spine. Normal visualized ribs, clavicles, and shoulders. There is no demonstrated abnormality of the visualized soft tissue structures of the upper abdomen. RAD/Chest PA and Lateral IMPRESSION: No acute cardiopulmonary process. Electronically Signed: Pauly Saini MD at 23:22 EDT Tel , Service support ,
--- NOTE | 2018-04-03 23:01 | ED.DCSUM_ITS ---
- ER Visit Summary Date of Service: 04/03/18 Chief Complaint: Sore throat, cough History of Present Illness: The patient is a 22 F with a four-day history of cough, congestion, sore throat. She seen her PCP office and told to viral URI. Tonight she is more pressure in her sinuses. She feels dehydrated and states that she was lightheaded earlier tonight at work. T-max is 99.9. She is coughing up green sputum. She denies wheezing. Physical Examination: Vital signs are unremarkable. Temperature here is 97.6. Patient is in no acute distress and nontoxic appearing. Head and neck examination reveals TMs to be clear bilaterally. She does have 3 + tonsils with mild erythema. There is single exudate noted on the left tonsil. Uvula is midline. She is mild bilateral anterior cervical lymphadenopathy. Heart is regular rate and rhythm. Lung sounds are clear. Abdomen soft nontender. Test Results: Two-view chest x-ray is unremarkable with no focal infiltrate. Rapid strep is negative. Emergency Department Course and Treatment: Patient is given a liter of IV fluids along with 30 mg of IV Toradol. On repeat evaluation she is resting comfortably. I discussed with her I do believe her symptoms are all viral in nature. She will continue [id number] cold medication. She will continue to monitor her for any fever. Treatment Plan: [] Disposition: Discharge Impression: Viral URI This note was generated with [employer] dictation software. It may contain incorrect words, spelling, and punctuation that were not noted in review of the chart prior to signing ED Disposition - Plan for ED Patient: Chief Complaint: Cold Sx Referrals: Austin Castro MD [Primary Care Provider] -
--- NOTE | 2018-04-03 23:32 | ED.DEP ---
ED Disposition - Plan for ED Patient: Disposition: Home or Assisted Living Chief Complaint: Cold Sx Instructions: ED Upper Resp Infec No Abx Tx Referrals: Austin Castro MD [Primary Care Provider] - 1 Week if not improving
[2018-04-03] MEDS: Ketorolac 30 MG/ML Syringe IV (23:37)
[2018-04-03] MEDS: 0.9% Normal Saline 1,000 ML 999 ML IV (23:37)
[2018-04-04 00:12] VITALS: BP 117/69; PULSE 83; RESP 16; O2SAT 99
== END 2018-04-04 00:15 | disposition home or self-care (01) ==
LOC: ED 23:43
PROVIDERS: Emergency Provider Emergency Medicine; PCP Family Medicine
DX: J06.9 Acute upper respiratory infection, unspecified (principal); F41.9 Anxiety disorder, unspecified; F32.9 Major depressive disorder, single episode, unspecified; Z79.899 Other long term (current) drug therapy
CPT/HCPCS: 71046; 87880; 96374; 99283; J7030; A4216

== ENCOUNTER → 2018-08-03 16:13 | Outpatient (CLI) | payer MEDICAID, SELFPAY ==
[2018-08-03 17:53] LABS: Absolute Lymphocyte Count 2.24 X10^3/ul (0.83-4.51); Absolute Neutrophil Count 6.3 X10^3/uL (2.0-7.7); Basophil# 0.03 X10^3/uL; Basophil% 0.3 % (0-1); Eosinophil# 0.14 X10^3/uL; Eosinophils% 1.5 % (0-5); Hematocrit 38.9 % (37-47); Hemoglobin 12.5 g/dl (12.0-15.0); Lymphocyte # 2.24 X10^3/ul (4.0); Lymphocyte % 24.7 % (19-41); Mean Corp Hgb Conc 32.1 g/gl (32-36); Mean Corpuscular Hgb 27.6 pg (27.0-32.0); Mean Corpuscular Volume 85.9 fL (81-99); Mean Platelet Vol. 11.3 fl (6.2-12.0); Monocyte# 0.38 X10^3/uL; Monocyte% 4.2 % (0-10); Neutrophil # 6.26 X10^3/uL (2.7-7.7); Neutrophil % 69.2 % (47-70); Platelet Count 267 K/mm3 (150-450); RBC Distribution Width CV 13.7 % (11.6-14.6); RBC Distribution Width SD 42.8 fl (35.1-43.9); Red Blood Count 4.53 M/mm3 (4.2-5.4); White Blood Count 9.1 K/mm3 (4.4-11.0)
[2018-08-03 17:55] LABS: POSITIVE COUNT NO; POSITIVE DIFFERENTIAL NO; POSITIVE MORPHOLOGY NO
[2018-08-03 18:14] LABS: Ferritin 10 ng/mL (8-252); Iron 50 ug/dL (50-170); Iron Binding Capacity,Total 488 ug/dL (250-450)
--- OUTSIDE RECORDS SUMMARY | 2018-10-08 11:39 | XMS RPT_ITS ---
:1995 Author Organization [place] Support Name Relationship Address Phone KACI HARMAN Unavailable [address] + [address] [place] [address] [facility] Unavailable [address] + [place] [address] KACI HARMAN Unavailable [address] + [address] [place] [address] [facility] Unavailable [address] + [place] [address] KACI HARMAN Unavailable [address] + [address] [place] [address] [facility] Unavailable [address] + [place] [address] KACI HARMAN Unavailable [address] + [address] [place] [address] [facility] Unavailable [address] + [place] [address] KACI HARMAN Unavailable [address] + [address] [place] [address] [facility] Unavailable [address] + [place] [address] KACI HARMAN Unavailable [address] + [address] [place] [address] [facility] Unavailable [address] + [place] [address] KACI HARMAN Unavailable [address] + [address] [place] [address] [facility] Unavailable [address] + [place] [address] KACI HARMAN Unavailable [address] + [address] [place] [address] [facility] Unavailable [address] + [place] [address] KACI HARMAN Unavailable [address] + [address] [place] [address] [facility] Unavailable [address] + [place] [address] KACI HARMAN Unavailable [address] + [address] [place] [address] [facility] Unavailable [address] + [place] [address] ENMA BUSTOS Unavailable Unavailable + [facility] Unavailable [address] + [place] [address] KACI HARMAN Unavailable [address] + [address] [place] [address] [facility] Unavailable [address] + [place] [address] KACI HARMAN Unavailable [address] + [address] [place] [address] [facility] Unavailable [address] + [place] [address] AKCI HARMAN Unavailable [address] + [address] [place] [address] [facility] Unavailable [address] + [place] [address] KACI HARMAN Unavailable [address] + [address] [place] [address] [facility] Unavailable [address] + [place] [address] KACI HARMAN Unavailable [address] + [address] [place] [address] [facility] Unavailable [address] + [place] [address] KACI HARMAN Unavailable [address] + [address] [place] [address] [facility] [address] [facility] + [place] [address] KACI HARMAN Unavailable [address] [place] [address] [facility] Un[facility] [address] [facility] + [place] [address] KACI HARMAN Unavailable [address] + [address] [place] [address] [facility] Unavailable [address] [facility] + [place] [address] KACI HARMAN Unavailable [address] + [address] [place] [address] [facility] Unavailable [address] + [place] [address] Care Team Providers Name Role Phone Austin Castro Attending Unavailable Schinner, Austin E Primary Care Unavailable Raf Jarrett Attending Unavailable SchAustin bee E Referring Unavailable Raf Jarrett Attending Unavailable Schinchristofer, Austin E Primary Care Unavailable Schinner, Austin E Primary Care Unavailable Wil Farr Attending Unavailable Schinner Austin E Attending Unavailable Schinner, Austin E Primary Care Unavailable Schinner, Austin E Primary Care Unavailable TAE CAMPBELL Attending Unavailable Reggie Raya Attending Unavailable Schinner, Austin E Referring Unavailable Schinner, Austin E Primary Care Unavailable Schinner, Austin E Primary Care Unavailable Johny Wolfe Attending Unavailable Schinner, Austin E Primary Care Unavailable Kin Lucas Attending Unavailable Schinner, Austin E Primary Care Unavailable Johny Wolfe Attending Unavailable Raf Jarrett Attending Unavailable Schinner Austin E Referring Unavailable Schinner, Austin E Primary Care Unavailable Gabriela Goldstein Attending Unavailable Schinner, Austin E Primary Care Unavailable Reggie Raya Attending Unavailable Schinner Austin E Referring Unavailable Reggie Raya Attending Unavailable Schinner, Austin E Referring Unavailable Schinner, Austin E Primary Care Unavailable Derek Coppola Attending Unavailable Derek Coppola Referring Unavailable Reggie Raya Attending Unavailable Schinner, Austin E Primary Care Unavailable Reggie Raya Referring Unavailable Derek Coppola Attending Unavailable Raf Jarrett Attending Unavailable Schinner Austin E Referring Unavailable Gabriela Goldstein Attending Unavailable ASSESSMENT, HEALTH RISK Attending Unavailable Schinner, Austin E Primary Care Unavailable PROBLEMS PROBLEMS DATE TYPE CONDITION / CODE ATTENDING STATUS SOURCE 08/11/2018 Unknown R35.0 - Frequency Raf Jarrett Active [place] of micturition / Community R35.0(ICD-10) Hospital Repository 07/13/2018 Unknown J02.9 - Acute Gabriela Goldstein Active [place] pharyngitis, Community unspecified / Hospital J02.9(ICD-10) Repository 04/19/2018 Unknown S39.012A - Strain Raf Jarrett Active [place] of muscle, fascia Community and tendon of Hospital lower back, Repository initial encounter / S39.012A(ICD-10) 06/13/2018 Unknown M54.5 - Low back AbdonDerek devlin Active [place] pain / Community M54.5(ICD-10) Hospital Repository 06/13/2018 Unknown F41.0 - Panic Gabriela Goldstein Active [place] disorder Community [[facility] paroxysmal Repository anxiety] / F41.0(ICD-10) 10/19/2017 Unknown R30.0 - Dysuria / Reggie Raya Active [place] R30.0(ICD-10) [facility] Hospital Repository 10/19/2017 Unknown N39.0 - Urinary Reggie Raya Active [place] tract infection, Community site not Hospital specified / Repository N39.0(ICD-10) 10/11/2017 Unknown D50.9 - Iron Austin Castro Active [place] deficiency E [facility] anemia, [facility] unspecified / Repository D50.9(ICD-10) 06/13/2018 Unknown R07.81 - Shundry, Active [place] Pleurodynia / [place] Community R07.81(ICD-10) Hospital Repository PROCEDURES PROCEDURES No Procedure Records FoundRESULTS RESULTS Observed: 08/11/2018 Status: F Source: [place] CULTURE, URINE 6:29 PM [facility] REPOSITORY Urine Culture ORGANISM 1: Mixed Gram Pos AND Gram Neg Org [place] Count 50,000-80,000 MIX CULTURE Mixed contaminants. Submit a new specimen if indicated. Performed By: #### M100.0650 #### [facility] [address], [address] CBC W/DIFF, AUTOMATED Collected: 08/03/2018 Status: F Source: [place] 4:15 PM [facility] REPOSITORY TYPE CODE TESTS RESULT OUT OF RANGE REFERENCE UNITS LAB L100.1000 4.4-11.0 K/mm3 Normal WBC 9.1 LAB L100.1200 4.2-5.4 M/mm3 Normal RBC 4.53 LAB L100.1300 12.0-15.0 g/dl Normal HGB 12.5 LAB L100.1400 37-47 % Normal HCT 38.9 LAB L100.1500 81-99 fL Normal MCV 85.9 LAB L100.1600 27.0-32.0 pg Normal MCH 27.6 LAB L100.1700 32-36 g/gl Normal MCHC 32.1 LAB L100.1810 11.6-14.6 % Normal RDW CV 13.7 LAB L100.1820 35.1-43.9 fl Normal RDW SD 42.8 LAB L100.1900 150-450 K/mm3 Normal PLT 267 LAB L100.2000 6.2-12.0 fl Normal MPV 11.3 LAB L100.2100 47-70 % Normal NEUT% 69.2 LAB L100.2200 19-41 % Normal LY% 24.7 LAB L100.2300 0-10 % Normal MONO% 4.2 LAB L100.2400 0-5 % Normal EO% 1.5 LAB L100.2500 0-1 % Normal BASO% 0.3 LAB L100.2550 0.0-0.9 % Normal IM GRAN % 0.100 Result Comment: IG% - Immature Granulocytes (promyelocytes, myelocytes and metamyelocytes) > 1% indicates that a LEFT SHIFT is Present. LAB L100.2620 2.0-7.7 X10 3/uL Normal Absolute Neut 6.3 LAB L100.2720 0.83-4.51 X10 3/ul Normal Absolute Lymph 2.24 Performed By: #### L100.0100, L503.6075, L503.6150, L503.6550 #### [facility] [address] [place], [place], [id number] IRON BINDING Collected: 08/03/2018 Status: F Source: [facility],TOTAL 4:15 PM [facility] REPOSITORY TYPE CODE TESTS RESULT OUT OF RANGE REFERENCE UNITS LAB L503.6075 250-450 ug/dL High TIBC 488 Performed By: #### L100.0100, L503.6075, L503.6150, L503.6550 #### [facility] [address] [place], [place], [address] IRON Collected: 08/03/2018 Status: F Source: [place] 4:15 PM [facility] REPOSITORY TYPE CODE TESTS RESULT OUT OF RANGE REFERENCE UNITS LAB L503.6150 50-170 ug/dL Normal IRON 50 Performed By: #### L100.0100, L503.6075, L503.6150, L503.6550 #### [facility] [address] [place], [place], [address] FERRITIN Collected: 08/03/2018 Status: F Source: [place] 4:15 PM [facility] REPOSITORY TYPE CODE TESTS RESULT OUT OF RANGE REFERENCE UNITS LAB L503.6550 8-252 ng/mL Normal FERRITIN 10 Performed By: #### L100.0100, L503.6075, L503.6150, L503.6550 #### [facility] [address] [place], [place], [address] CNOV Observed: 07/27/2018 Status: COMPLETED Source: [place] 6:30 AM [facility] REPOSITORY Office Visit (WSTR) CEDRIC HARMAN ([id number]) 1995 F Date Time Provider Department 07/27/18 6:30 AM JENNY SINGH ([facility]) [facility] During your visit today, we recorded the following information about you: Temperature Pulse Respiration Blood pressure 98.8 degrees 83/minute 16/minute 142/82 Weight Last Period 102.5 kg 07/20/18 Jenny Singh APRN.ANAHY 07/27/2018 6:41 AM Signed Subjective The history is provided by the patient. No computer language coder was used. HPI Cedric Harman is a 23 year old female who presents today for CC of ear pain. She is also having sinus pressures, post nasal drainage and cough. This started 2 weeks ago, got better 2 days and then suddenly worsened over the past 2 days.. She has tried OTC medications as discussed at visit here on 07/18 with short erm relief. Symptoms are worse with leaning forward. H/o sinusitis in the past. . BP 142/82 Pulse 83 Temp 37.1 ?C (98.8 ?F) (Left Tympanic) Resp 16 Wt 102.5 kg (226 lb) LMP 2018 SpO2 98% ? No BMI 40.03 kg/m? Social History Marital status: Single Spouse name: Years of education: 12 Number of children: 0 Occupational History Occupation Employer Comment [employer] Social History Main Topics Smoking status: Never Smoker Smokeless tobacco: Never Used Alcohol use: No Drug use: No Sexual activity: Yes Partners with: Male control/protection: Pill Other Topics Concern Service No Sleep Concern Yes Stress Concern Yes Special Diet No Exercise No Seat Belt No Comment:now does since accident Self-Exams No Social History Narrative Lives with mom and step dad, 2 brothers and cousin No pets PAST MEDICAL HISTORY Diagnosis Date - Chlamydia 2013 and 2017 - Depression I have confirmed and edited as necessary, the [facility] Review of Systems Constitutional: Negative for chills and fever. HENT: Positive for congestion and ear pain. Negative for sinus pain and sore throat. Thin Clear Post Nasal Drainage Respiratory: Positive for cough. Musculoskeletal: Negative for myalgias. Neurological: Negative for headaches. All other systems reviewed and are negative. Objective Physical Exam Constitutional: She is well-developed, well-nourished, and in no distress. HENT: Head: Normocephalic and atraumatic. Right Ear: External ear and ear canal normal. Tympanic membrane is bulging. A middle ear effusion (serous) is present. Left Ear: Ear canal normal. Left ear tenderness: serous. Tympanic membrane is bulging. A middle ear effusion is present. Nose: Mucosal edema and rhinorrhea present. Right sinus exhibits no maxillary sinus tenderness and no frontal sinus tenderness. Left sinus exhibits no maxillary sinus tenderness and no frontal sinus tenderness. Mouth/Throat: Uvula is midline and mucous membranes are normal. Posterior oropharyngeal erythema (mild) present. No oropharyngeal exudate, posterior oropharyngeal edema or tonsillar abscesses. Cardiovascular: Normal rate, regular rhythm and normal heart sounds. Pulmonary/Chest: Effort normal and breath sounds normal. No respiratory distress. She has no decreased breath sounds. She has no wheezes. She has no rhonchi. She has no rales. Lymphadenopathy: Head (right side): No submental, no submandibular and no tonsillar adenopathy present. Head (left side): No submental, no submandibular and no tonsillar adenopathy present. She has no cervical adenopathy. Right cervical: No superficial cervical adenopathy present. Left cervical: No superficial cervical adenopathy present. Neurological: She is alert. Skin: Skin is warm and dry. Psychiatric: Affect normal. Nursing note and vitals reviewed. ASSESSMENT/PLAN: 1. Acute non-recurrent pansinusitis - ICD9: 461.8, ICD10: J01.40 (primary diagnosis) - Will begin treatment with Augmentin 875 mg PO BID for 10 days - Supportive care with plenty of fluids, rest, and analgesia prn. - AMOXICILLIN 875 MG-POTASSIUM CLAVULANATE 125 MG TABLET - CETIRIZINE 10 MG TABLET - FLUTICASONE 50 MCG/ACTUATION NASAL SPRAY,SUSPENSION 2. Feared condition not demonstrated - ICD9: V65.5, ICD10: Z71.1 Use OTC monistat or gynazole one if develop yeast symptoms You can take an OTC probiotic such as Florajen, Culturelle or Align to help with stomach upset/loose stool that you may get as a side effect of the antibiotic. Diagnosis and treatment plan were discussed and questions were answered to the patient's satisfaction. Pt acknowledged understanding of concepts and follow up plan. Specific signs and symptoms that would indicate the need for higher level of care were discussed in detail warranting prompt ER evaluation. Jenny Singh APRN.ANAHY Singh APRN.ANAHY 07/27/2018 6:37 AM Addendum ASSESSMENT/PLAN: 1. Acute non-recurrent pansinusitis - ICD9: 461.8, ICD10: J01.40 (primary diagnosis) - Will begin treatment with Augmentin 875 mg PO BID for 10 days - Supportive care with plenty of fluids, rest, and analgesia prn. - AMOXICILLIN 875 MG-POTASSIUM CLAVULANATE 125 MG TABLET - CETIRIZINE 10 MG TABLET - FLUTICASONE 50 MCG/ACTUATION NASAL SPRAY,SUSPENSION Flonase 1 spray each nostril two times a day. Zyrtec 10 mg By mouth daily at bedtime -Increase fluid intake. Try to drink at least 8 glasses of non caffeinated fluids daily. --Rest as much as possible. -Do the nasal saline irrigation at least 2 x day to relieve nasal mucous and congestion: brands include Alec Med, Simply saline, Crenshaw nasal spray, or even the generic store brand one is ok. Take the entire course of antibiotics as prescribed. DO NOT stop taking it early, even if you are feeling better. -Practice good hygiene, wash hands frequently. -Monitor for signs of worsening infection: increased temperature, pain in face, ear pain or headaches or increase in nasal congestion/mucous that is not improving. -Educated patient on side effects of medication. 2. Feared condition not demonstrated - ICD9: V65.5, ICD10: Z71.1 Use OTC monistat or gynazole one if develop yeast symptoms You can take an OTC probiotic such as Florajen, Culturelle or Align to help with stomach upset/loose stool that you may get as a side effect of the antibiotic. Referring Provider: SELF [200] Allergies As of Date: 07/27/2018 (No Known Allergies) Date Reviewed: 07/27/2018 Reviewed by: Jenny ([facility] [employer] [facility]) [place] - Fully Assessed Reason for Visit: URI [115] Primary Visit Diagnosis:Acute non-recurrent pansinusitis [J01.40] Other Visit Diagnosis:Feared condition not demonstrated [Z71.1] Order(s):amoxicillin-clavulanic acid (AUGMENTIN) 875-125 mg per tabletTake 1 tablet by mouth twice daily for 10 days.Disp: 20 tabletRfl: 0 cetirizine (ZYRTEC) 10 mg tabletTake 1 tablet by mouth once daily.Disp: 30 tabletRfl: 0 fluticasone (FLONASE) 50 mcg/actuation nasal sprayUse 2 Sprays in each nostril once daily. Rinse mouth after use.Disp: 1 BottleRfl: 0 Prescriptions as of 07/27/2018 Sig: DICYCLOMINE 10 MG CAPSULE THREE TIMES DAILY BEFORE MEAL* ESCITALOPRAM 10 MG TABLET Take 10 mg by mouth once earnest* NORGESTIMATE 0.25 MG-ETHINYL * Take 1 tablet by mouth once d* HYDROXYZINE PAMOATE 25 MG CAP* Take 1 capsule by mouth twice* AMOXICILLIN 875 MG-POTASSIUM * Take 1 tablet by mouth twice * CETIRIZINE 10 MG TABLET Take 1 tablet by mouth once d* FLUTICASONE 50 MCG/ACTUATION * Use 2 Sprays in each nostril * FLUCONAZOLE 150 MG TABLET Take 1 tablet at onset of sym* Patient not taking: Reported on 07/18/2018 FLUTICASONE 50 MCG/ACTUATION * Use 2 Sprays in each nostril * Patient not taking: Reported on 07/18/2018 BENZONATATE 200 MG CAPSULE Take 1 capsule by mouth three* Patient not taking: Reported on 07/18/2018 FLUOXETINE 40 MG CAPSULE IRON ORAL Take by mouth. Problem List As Of Date 07/27/2018 Noted Resolved control counseling [Z30.09] INVALID FOR*09/28/2016 Sore throat [J02.9] INVALID FOR*09/28/2016 More... Odynophagia [R13.10] INVALID FOR* More... Spotting in [O26.859] INVALID FOR*09/28/2016 More... History of depression [Z86.59] INVALID FOR*04/27/2017 More... Family history of defects [Z82.79] INVALID FOR*04/27/2017 More... Obesity in [O99.210] INVALID FOR*04/27/2017 More... Supervision of high risk due to socia*INVALID FOR*04/27/2017 More... Chlamydia infection affecting [O98.81*INVALID FOR*04/27/2017 More... Other instructions from your clinician: ASSESSMENT/PLAN: 1. Acute non-recurrent pansinusitis - ICD9: 461.8, ICD10: J01.40 (primary diagnosis) - Will begin treatment with Augmentin 875 mg PO BID for 10 days - Supportive care with plenty of fluids, rest, and analgesia prn. - AMOXICILLIN 875 MG-POTASSIUM CLAVULANATE 125 MG TABLET - CETIRIZINE 10 MG TABLET - FLUTICASONE 50 MCG/ACTUATION NASAL SPRAY,SUSPENSION Flonase 1 spray each nostril two times a day. Zyrtec 10 mg By mouth daily at bedtime -Increase fluid intake. Try to drink at least 8 glasses of non caffeinated fluids daily. --Rest as much as possible. -Do the nasal saline irrigation at least 2 x day to relieve nasal mucous and congestion: brands include Alec Med, Simply saline, Crenshaw nasal spray, or even the generic store brand one is ok. Take the entire course of antibiotics as prescribed. DO NOT stop taking it early, even if you are feeling better. -Practice good hygiene, wash hands frequently. -Monitor for signs of worsening infection: increased temperature, pain in face, ear pain or headaches or increase in nasal congestion/mucous that is not improving. -Educated patient on side effects of medication. 2. Feared condition not demonstrated - ICD9: V65.5, ICD10: Z71.1 Use OTC monistat or gynazole one if develop yeast symptoms You can take an OTC probiotic such as Florajen, Culturelle or Align to help with stomach upset/loose stool that you may get as a side effect of the antibiotic. Prescriptions ordered this encounter Disp Refills Start End AMOXICILLIN 875 MG-POTASSIUM CLAVULA* 20 t* 0 07/27/2018 08/06/2018 Route: ORAL Sig: Take 1 tablet by mouth twice daily for 10 days. CETIRIZINE 10 MG TABLET 30 t* 0 07/27/2018 Route: ORAL Sig: Take 1 tablet by mouth once daily. FLUTICASONE 50 MCG/ACTUATION NASAL S* 1 Raheem* 0 07/27/2018 Route: EACH NOSTRIL Sig: Use 2 Sprays in each nostril once daily. Rinse mouth after use. Encounter Status:Closed by JENNY SINGH CNP on 07/27/18 PROGRESS Observed: 07/27/2018 Status: COMPLETED Source: [place] 6:28 AM [facility] REPOSITORY HNO ID: [id number] Author: Jenny Meek) [place] Service: (none) Author Type: Nurse Practitioner Type: Progress Notes Filed: 07/27/2018 6:41 AM Note Text: Subjective The history is provided by the patient. No computer language coder was used. HPI Cedric Harman is a 23 year old female who presents today for CC of ear pain. She is also having sinus pressures, post nasal drainage and cough. This started 2 weeks ago, got better 2 days and then suddenly worsened over the past 2 days.. She has tried OTC medications as discussed at visit here on 07/18 with short erm relief. Symptoms are worse with leaning forward. H/o sinusitis in the past. . BP 142/82 Pulse 83 Temp 37.1 ?C (98.8 ?F) (Left Tympanic) Resp 16 Wt 102.5 kg (226 lb) LMP 2018 SpO2 98% ? No BMI 40.03 kg/m? Social History Marital status: Single Spouse name: Years of education: 12 Number of children: 0 Occupational History Occupation Employer Comment [employer] Social History Main Topics Smoking status: Never Smoker Smokeless tobacco: Never Used Alcohol use: No Drug use: No Sexual activity: Yes Partners with: Male control/protection: Pill Other Topics Concern Service No Sleep Concern Yes Stress Concern Yes Special Diet No Exercise No Seat Belt No Comment:now does since accident Self-Exams No Social History Narrative Lives with mom and step dad, 2 brothers and cousin No pets PAST MEDICAL HISTORY Diagnosis Date - Chlamydia 2013 and 2017 - Depression I have confirmed and edited as necessary, the [facility] Review of Systems Constitutional: Negative for chills and fever. HENT: Positive for congestion and ear pain. Negative for sinus pain and sore throat. Thin Clear Post Nasal Drainage Respiratory: Positive for cough. Musculoskeletal: Negative for myalgias. Neurological: Negative for headaches. All other systems reviewed and are negative. Objective Physical Exam Constitutional: She is well-developed, well-nourished, and in no distress. HENT: Head: Normocephalic and atraumatic. Right Ear: External ear and ear canal normal. Tympanic membrane is bulging. A middle ear effusion (serous) is present. Left Ear: Ear canal normal. Left ear tenderness: serous. Tympanic membrane is bulging. A middle ear effusion is present. Nose: Mucosal edema and rhinorrhea present. Right sinus exhibits no maxillary sinus tenderness and no frontal sinus tenderness. Left sinus exhibits no maxillary sinus tenderness and no frontal sinus tenderness. Mouth/Throat: Uvula is midline and mucous membranes are normal. Posterior oropharyngeal erythema (mild) present. No oropharyngeal exudate, posterior oropharyngeal edema or tonsillar abscesses. Cardiovascular: Normal rate, regular rhythm and normal heart sounds. Pulmonary/Chest: Effort normal and breath sounds normal. No respiratory distress. She has no decreased breath sounds. She has no wheezes. She has no rhonchi. She has no rales. Lymphadenopathy: Head (right side): No submental, no submandibular and no tonsillar adenopathy present. Head (left side): No submental, no submandibular and no tonsillar adenopathy present. She has no cervical adenopathy. Right cervical: No superficial cervical adenopathy present. Left cervical: No superficial cervical adenopathy present. Neurological: She is alert. Skin: Skin is warm and dry. Psychiatric: Affect normal. Nursing note and vitals reviewed. ASSESSMENT/PLAN: 1. Acute non-recurrent pansinusitis - ICD9: 461.8, ICD10: J01.40 (primary diagnosis) - Will begin treatment with Augmentin 875 mg PO BID for 10 days - Supportive care with plenty of fluids, rest, and analgesia prn. - AMOXICILLIN 875 MG-POTASSIUM CLAVULANATE 125 MG TABLET - CETIRIZINE 10 MG TABLET - FLUTICASONE 50 MCG/ACTUATION NASAL SPRAY,SUSPENSION 2. Feared condition not demonstrated - ICD9: V65.5, ICD10: Z71.1 Use OTC monistat or gynazole one if develop yeast symptoms You can take an OTC probiotic such as Florajen, Culturelle or Align to help with stomach upset/loose stool that you may get as a side effect of the antibiotic. Diagnosis and treatment plan were discussed and questions were answered to the patient's satisfaction. Pt acknowledged understanding of concepts and follow up plan. Specific signs and symptoms that would indicate the need for higher level of care were discussed in detail warranting prompt ER evaluation. Jenny Singh APRN.RN INTAKE PROGRESS Observed: 07/18/2018 Status: COMPLETED Source: [place] 1:11 PM [facility] REPOSITORY O ID: [id number] Author: Bautista Burch (Macy Sepulveda Service: (none) Author Type: Nurse Practitioner Type: Progress Notes Filed: 07/18/2018 1:52 PM Note Text: Subjective HPI Patient presents with: bilateral ear pain, congestion and drainage: x 2 days-coughing up green Denies any otc treatment for symptoms. Also with complaints being 2 weeks late for menses, with possibility of . Review of Systems Constitutional: Negative for chills, fever and malaise/fatigue. HENT: Positive for congestion, ear pain and sore throat. Eyes: Negative for discharge and redness. Respiratory: Positive for cough. Negative for hemoptysis, sputum production, shortness of breath and wheezing. Gastrointestinal: Negative for abdominal pain, diarrhea, nausea and vomiting. Genitourinary: Missed menses Skin: Negative for rash. Neurological: Negative for headaches. PAST MEDICAL HISTORY Diagnosis Date - Chlamydia 2013 and 2016 - Depression PAST SURGICAL HISTORY Procedure Laterality Date - DELIVERY ONLY 04/12/2017 - PAST SURGICAL HISTORY OF oral (gum) surgery ALLERGIES Patient has no known allergies. MEDICATIONS escitalopram oxalate (LEXAPRO) 10 mg tablet Take 10 mg by mouth once daily. hydrOXYzine pamoate (VISTARIL) 25 mg capsule Take 1 capsule by mouth twice daily as needed for Anxiety. norgestimate 0.25 mg-ethinyl estradiol 35 mcg (SPRINTEC) 0.25- 35 mg-mcg per tablet Take 1 tablet by mouth once daily. Benzonatate 200 mg capsule Take 1 capsule by mouth three times daily as needed for Cough. dicyclomine (BENTYL) 10 mg capsule THREE TIMES DAILY BEFORE MEALS PRN For STOMACH FERROUS SULFATE (IRON ORAL) Take by mouth. fluconazole (DIFLUCAN) 150 mg tablet Take 1 tablet at onset of symptoms, may repeat if still symptomatic after 3 days FLUoxetine HCl (PROZAC) 40 mg capsule fluticasone (FLONASE) 50 mcg/actuation nasal spray Use 2 Sprays in each nostril once daily. Rinse mouth after use. FAMILY HISTORY Problem Relation Age of Onset - Allergies Mother - other (brain tumor benign) Father - other (Depression, anxiety , panic attacks) Father - Hypertension Maternal Grandmother - Lipids Maternal Grandmother - other (Depression) Maternal Grandmother - Asthma Maternal Grandfather - COPD Maternal Grandfather Social History Substance Use Topics - Smoking status: Never Smoker - Smokeless tobacco: Never Used - Alcohol use No Objective Physical Exam Constitutional: She is well-developed, well-nourished, and in no distress. HENT: Head: Normocephalic. Right Ear: External ear and ear canal normal. A middle ear effusion (small, clear) is present. Left Ear: External ear and ear canal normal. A middle ear effusion (small, clear) is present. Nose: Rhinorrhea present. Right sinus exhibits no maxillary sinus tenderness and no frontal sinus tenderness. Left sinus exhibits no maxillary sinus tenderness and no frontal sinus tenderness. Mouth/Throat: Posterior oropharyngeal erythema (PND) present. Eyes: Conjunctivae are normal. Neck: Normal range of motion. Neck supple. Cardiovascular: Normal rate, regular rhythm and normal heart sounds. Pulmonary/Chest: Effort normal and breath sounds normal. No respiratory distress. She has no wheezes. Abdominal: Soft. She exhibits no distension. There is no tenderness. Lymphadenopathy: She has no cervical adenopathy. Skin: Skin is warm and dry. No rash noted. Nursing note and vitals reviewed. ASSESSMENT/PLAN: 1. Missed menses - ICD9: 626.4, ICD10: N92.6 (primary diagnosis) - Negative - F/u with clipper counters if needed - HCG QUAL UR B/O 2. Viral URI with cough - ICD9: 465.9, ICD10: J06.9, B97.89 - Discussed viral etiology and rationale for treatment. - Symptomatic treatment with prn analgesia - Supportive care with fluids and rest - Follow up in 3-5 days if symptoms persist or sooner if worsening of symptoms Prescription instructions reviewed with patient as applicable. Patient advised if symptoms do not improve or if symptoms worsen sooner, to contact their primary care physician. Potential red flag symptoms discussed with the patient. Reviewed appropriate action plan to take if red flag symptoms occur. Patient agreeable to treatment plan. Bautista Sepulveda APRN.RN INTAKE CNOV Observed: 07/18/2018 Status: COMPLETED Source: [place] 1:00 PM [facility] REPOSITORY Office Visit (WSTR) CEDRIC HARMAN ([id number]) 1995 F Date Time Provider Department 07/18/18 1:00 PM BAUTISTA SEPULVEDA (C[employer]ULAR [employer]IFE [employer]ACHINE) [facility] During your visit today, we recorded the following information about you: Temperature Pulse Respiration Blood pressure 98.8 degrees 100/minute 16/minute 120/62 Weight 103.1 kg Bautista Sepulveda APRN.RN INTAKE 07/18/2018 1:52 PM Signed Subjective HPI Patient presents with: bilateral ear pain, congestion and drainage: x 2 days-coughing up green Denies any otc treatment for symptoms. Also with complaints being 2 weeks late for menses, with possibility of . Review of Systems Constitutional: Negative for chills, fever and malaise/fatigue. HENT: Positive for congestion, ear pain and sore throat. Eyes: Negative for discharge and redness. Respiratory: Positive for cough. Negative for hemoptysis, sputum production, shortness of breath and wheezing. Gastrointestinal: Negative for abdominal pain, diarrhea, nausea and vomiting. Genitourinary: Missed menses Skin: Negative for rash. Neurological: Negative for headaches. PAST MEDICAL HISTORY Diagnosis Date - Chlamydia 2013 and 2016 - Depression PAST SURGICAL HISTORY Procedure Laterality Date - DELIVERY ONLY 04/12/2017 - PAST SURGICAL HISTORY OF oral (gum) surgery ALLERGIES Patient has no known allergies. MEDICATIONS escitalopram oxalate (LEXAPRO) 10 mg tablet Take 10 mg by mouth once daily. hydrOXYzine pamoate (VISTARIL) 25 mg capsule Take 1 capsule by mouth twice daily as needed for Anxiety. norgestimate 0.25 mg-ethinyl estradiol 35 mcg (SPRINTEC) 0.25- 35 mg-mcg per tablet Take 1 tablet by mouth once daily. Benzonatate 200 mg capsule Take 1 capsule by mouth three times daily as needed for Cough. dicyclomine (BENTYL) 10 mg capsule THREE TIMES DAILY BEFORE MEALS PRN For STOMACH FERROUS SULFATE (IRON ORAL) Take by mouth. fluconazole (DIFLUCAN) 150 mg tablet Take 1 tablet at onset of symptoms, may repeat if still symptomatic after 3 days FLUoxetine HCl (PROZAC) 40 mg capsule fluticasone (FLONASE) 50 mcg/actuation nasal spray Use 2 Sprays in each nostril once daily. Rinse mouth after use. FAMILY HISTORY Problem Relation Age of Onset - Allergies Mother - other (brain tumor benign) Father - other (Depression, anxiety , panic attacks) Father - Hypertension Maternal Grandmother - Lipids Maternal Grandmother - other (Depression) Maternal Grandmother - Asthma Maternal Grandfather - COPD Maternal Grandfather Social History Substance Use Topics - Smoking status: Never Smoker - Smokeless tobacco: Never Used - Alcohol use No Objective Physical Exam Constitutional: She is well-developed, well-nourished, and in no distress. HENT: Head: Normocephalic. Right Ear: External ear and ear canal normal. A middle ear effusion (small, clear) is present. Left Ear: External ear and ear canal normal. A middle ear effusion (small, clear) is present. Nose: Rhinorrhea present. Right sinus exhibits no maxillary sinus tenderness and no frontal sinus tenderness. Left sinus exhibits no maxillary sinus tenderness and no frontal sinus tenderness. Mouth/Throat: Posterior oropharyngeal erythema (PND) present. Eyes: Conjunctivae are normal. Neck: Normal range of motion. Neck supple. Cardiovascular: Normal rate, regular rhythm and normal heart sounds. Pulmonary/Chest: Effort normal and breath sounds normal. No respiratory distress. She has no wheezes. Abdominal: Soft. She exhibits no distension. There is no tenderness. Lymphadenopathy: She has no cervical adenopathy. Skin: Skin is warm and dry. No rash noted. Nursing note and vitals reviewed. ASSESSMENT/PLAN: 1. Missed menses - ICD9: 626.4, ICD10: N92.6 (primary diagnosis) - Negative - F/u with clipper counters if needed - HCG QUAL UR B/O 2. Viral URI with cough - ICD9: 465.9, ICD10: J06.9, B97.89 - Discussed viral etiology and rationale for treatment. - Symptomatic treatment with prn analgesia - Supportive care with fluids and rest - Follow up in 3-5 days if symptoms persist or sooner if worsening of symptoms Prescription instructions reviewed with patient as applicable. Patient advised if symptoms do not improve or if symptoms worsen sooner, to contact their primary care physician. Potential red flag symptoms discussed with the patient. Reviewed appropriate action plan to take if red flag symptoms occur. Patient agreeable to treatment plan. Bautista Sepulveda APRN.ANAHY Sepulveda APRN.ANAHY 07/18/2018 1:27 PM Signed Treatment for Viral Upper Respiratory Tract Infections Your body will kill off the virus by itself. Additionally, you can prime your body's immune system. This may help you get better more quickly. 1. Drink lots of fluids - at least one gallon of non-caffeinated liquids per day 2. Make sure you are eating well 3. Get plenty of rest - at least 8 hours of sleep per night for adults and more for children We do not have any medications that kill off these viruses. Antibiotics are used to treat bacterial infections; however, they are not active against viral infections. There are some things that might help you feel better, though. 1. Vaporizers, humidifiers, hot showers, and hot fluids help open respiratory and sinus passages 2. Sudafed is a safe and effective decongestant 3. Crenshaw Nasal [place] may offer relief of nasal and head congestion 4. Mike's Vapor Rub placed on a hot towel and draped over the head may relieve congestion 5. Tylenol and Advil help control fevers and headaches 6. Salt water gargles help relieve sore throats 7. Chloraceptic spray or throat lozenges may also help relieve sore throat symptoms 8. Robitussin DM will help loosen up secretions and also provide relief from a cough Occasionally, viral infections turn into something more serious. You should see your doctor or return to the Urgent Care if: 1. You have fevers for longer than five days 2. You have fevers above 102 degrees 3. You are still sick after 10 days 4. You have shortness of breath or wheezing 5. After several days you are getting worse rather than better Referring Provider: SELF [[id number]] Allergies As of Date: 07/18/2018 (No Known Allergies) Date Reviewed: 07/18/2018 Reviewed by: Phuong Garcia LPN - Fully Assessed Reason for Visit: bilateral ear pain, congestion and drainage [Other] Cmt: x 2 days-coughing up green Primary Visit Diagnosis:Missed menses [N92.6] Other Visit Diagnosis:Viral URI with cough [J06.9, B97.89] Order(s):[facility] QUAL UR B/O [[id number]] Order #: [id number] Ceonzyeosvsktpx-Mrvhcplkl-CX (BROMFED DM) 2-30-10 mg/5 mL syrupTake 10 mL by mouth four times daily as needed for up to 7 days.Disp: 240 mLRfl: 0 Prescriptions as of 07/18/2018 Sig: ESCITALOPRAM 10 MG TABLET Take 10 mg by mouth once earnest* HYDROXYZINE PAMOATE 25 MG CAP* Take 1 capsule by mouth twice* NORGESTIMATE 0.25 MG-ETHINYL * Take 1 tablet by mouth once d* BENZONATATE 200 MG CAPSULE Take 1 capsule by mouth three* Patient not taking: Reported on 07/18/2018 BROMPHENIRAMINE-PSEUDOEPHEDRI* Take 10 mL by mouth four time* DICYCLOMINE 10 MG CAPSULE THREE TIMES DAILY BEFORE MEAL* IRON ORAL Take by mouth. FLUCONAZOLE 150 MG TABLET Take 1 tablet at onset of sym* Patient not taking: Reported on 07/18/2018 FLUOXETINE 40 MG CAPSULE FLUTICASONE 50 MCG/ACTUATION * Use 2 Sprays in each nostril * Patient not taking: Reported on 07/18/2018 Problem List As Of Date 07/18/2018 Noted Resolved control counseling [Z30.09] INVALID FOR*09/28/2016 Sore throat [J02.9] INVALID FOR*09/28/2016 More... Odynophagia [R13.10] INVALID FOR* More... Spotting in [O26.859] INVALID FOR*09/28/2016 More... History of depression [Z86.59] INVALID FOR*04/27/2017 More... Family history of defects [Z82.79] INVALID FOR*04/27/2017 More... Obesity in [O99.210] INVALID FOR*04/27/2017 More... Supervision of high risk due to socia*INVALID FOR*04/27/2017 More... Chlamydia infection affecting [O98.81*INVALID FOR*04/27/2017 More... Other instructions from your clinician: Treatment for Viral Upper Respiratory Tract Infections Your body will kill off the virus by itself. Additionally, you can prime your body's immune system. This may help you get better more quickly. 1. Drink lots of fluids - at least one gallon of non-caffeinated liquids per day 2. Make sure you are eating well 3. Get plenty of rest - at least 8 hours of sleep per night for adults and more for children We do not have any medications that kill off these viruses. Antibiotics are used to treat bacterial infections; however, they are not active against viral infections. There are some things that might help you feel better, though. 1. Vaporizers, humidifiers, hot showers, and hot fluids help open respiratory and sinus passages 2. Sudafed is a safe and effective decongestant 3. Crenshaw Nasal [place] may offer relief of nasal and head congestion 4. Mike's Vapor Rub placed on a hot towel and draped over the head may relieve congestion 5. Tylenol and Advil help control fevers and headaches 6. Salt water gargles help relieve sore throats 7. Chloraceptic spray or throat lozenges may also help relieve sore throat symptoms 8. Robitussin DM will help loosen up secretions and also provide relief from a cough Occasionally, viral infections turn into something more serious. You should see your doctor or return to the Urgent Care if: 1. You have fevers for longer than five days 2. You have fevers above 102 degrees 3. You are still sick after 10 days 4. You have shortness of breath or wheezing 5. After several days you are getting worse rather than better Prescriptions ordered this encounter Disp Refills Start End [id number]-VO 2* 240 * 0 07/18/2018 07/25/2018 Route: ORAL Sig: Take 10 mL by mouth four times daily as needed for up to 7 days. Disposition: Return if symptoms worsen or fail to improve. Follow-up and Disposition History Recorded Encounter Status:Closed by BAUTISTA SEPULVEDA on 07/18/18 HEP B SURFACE Collected: 06/19/2018 Status: F Source: [facility] 1:30 PM [facility] REPOSITORY TYPE CODE TESTS RESULT OUT OF RANGE REFERENCE UNITS LAB L3100.0537 . Normal Hep B Non Reactive [place] AB Result Comment: Non Reactive: Inconsistent with immunity, less than 10 mIU/mL Reactive: Consistent with immunity, greater than 9.9 mIU/mL Performed at: - [facility] [id number] Operating Room Registered Nurse: Micheal Dudley PhD, Phone: [phone] Performed By: #### [id number] #### [facility] (refer to report for specific site) refer to report for address and phone number PROGRESS Observed: 05/25/2018 Status: COMPLETED Source: [place] 3:49 PM [facility] REPOSITORY HNO ID: [id number] Author: Bautista Burch ([employer]) [place] Service: (none) Author Type: Nurse Practitioner Type: Progress Notes Filed: 05/25/2018 3:50 PM Note Text: Subjective HPI Patient presents with: Ear Problem: x today +nasal congestion, cough, sore throat x 3-4 days Denies any otc treatment for symptoms. Review of Systems Constitutional: Negative for chills, fever and malaise/fatigue. HENT: Positive for congestion, ear pain and sore throat. Eyes: Negative for discharge and redness. Respiratory: Positive for cough. Negative for hemoptysis, sputum production, shortness of breath and wheezing. Gastrointestinal: Negative for abdominal pain, diarrhea, nausea and vomiting. Skin: Negative for rash. Neurological: Negative for headaches. PAST MEDICAL HISTORY Diagnosis Date - Chlamydia 2013 and 2017 - Depression PAST SURGICAL HISTORY Procedure Laterality Date - DELIVERY ONLY 04/12/2017 - PAST SURGICAL HISTORY OF oral (gum) surgery ALLERGIES Patient has no known allergies. MEDICATIONS dicyclomine (BENTYL) 10 mg capsule THREE TIMES DAILY BEFORE MEALS PRN For STOMACH fluconazole (DIFLUCAN) 150 mg tablet Take 1 tablet at onset of symptoms, may repeat if still symptomatic after 3 days fluticasone (FLONASE) 50 mcg/actuation nasal spray Use 2 Sprays in each nostril once daily. Rinse mouth after use. Benzonatate 200 mg capsule Take 1 capsule by mouth three times daily as needed for Cough. escitalopram oxalate (LEXAPRO) 10 mg tablet Take 10 mg by mouth once daily. norgestimate 0.25 mg-ethinyl estradiol 35 mcg (SPRINTEC) 0.25- 35 mg-mcg per tablet Take 1 tablet by mouth once daily. hydrOXYzine pamoate (VISTARIL) 25 mg capsule Take 1 capsule by mouth twice daily as needed for Anxiety. amoxicillin (AMOXIL) 875 mg tablet Take 1 tablet by mouth twice daily for 10 days. Owwrzidudeijykd-Klklsggqa-MX (BROMFED DM) 2-30-10 mg/5 mL syrup Take 10 mL by mouth four times daily as needed for up to 7 days. FLUoxetine HCl (PROZAC) 40 mg capsule FERROUS SULFATE (IRON ORAL) Take by mouth. FAMILY HISTORY Problem Relation Age of Onset - Allergies Mother - other (brain tumor benign) Father - other (Depression, anxiety , panic attacks) Father - Hypertension Maternal Grandmother - Lipids Maternal Grandmother - other (Depression) Maternal Grandmother - Asthma Maternal Grandfather - COPD Maternal Grandfather Social History Substance Use Topics - Smoking status: Never Smoker - Smokeless tobacco: Never Used - Alcohol use No Objective Physical Exam Constitutional: She is well-developed, well-nourished, and in no distress. HENT: Head: Normocephalic. Right Ear: External ear and ear canal normal. Tympanic membrane is erythematous. Left Ear: External ear and ear canal normal. Tympanic membrane is erythematous. Nose: Rhinorrhea present. Right sinus exhibits no maxillary sinus tenderness and no frontal sinus tenderness. Left sinus exhibits no maxillary sinus tenderness and no frontal sinus tenderness. Mouth/Throat: Posterior oropharyngeal erythema (PND) present. Eyes: Conjunctivae are normal. Neck: Normal range of motion. Neck supple. Cardiovascular: Normal rate, regular rhythm and normal heart sounds. Pulmonary/Chest: Effort normal and breath sounds normal. No respiratory distress. She has no wheezes. Abdominal: Soft. She exhibits no distension. There is no tenderness. Lymphadenopathy: She has no cervical adenopathy. Skin: Skin is warm and dry. No rash noted. Nursing note and vitals reviewed. ASSESSMENT/PLAN: 1. Acute suppurative otitis media of both ears without spontaneous rupture of tympanic membranes, recurrence not specified - ICD9: 382.00, ICD10: H66.003 (primary diagnosis) - Will begin treatment with Amoxicillin for 10 days - The patient should also be given OTC decongestants prn, OTC cough and cold meds as needed, warm salt water gargles, throat lozenges and/or OTC throat spray as needed and nasal saline gtts and suction prn for the first 5-7 days of treatment. - Supportive care with plenty of fluids, rest, and analgesia prn. - Follow up in 3-5 days if symptoms persist or worsen. 2. Viral URI with cough - ICD9: 465.9, ICD10: J06.9, B97.89 - Discussed viral etiology and rationale for treatment. - Symptomatic treatment with prn analgesia - Supportive care with fluids and rest - Follow up in 3-5 days if symptoms persist or sooner if worsening of symptoms Prescription instructions reviewed with patient as applicable. Patient advised if symptoms do not improve or if symptoms worsen sooner, to contact their primary care physician. Potential red flag symptoms discussed with the patient. Reviewed appropriate action plan to take if red flag symptoms occur. Patient agreeable to treatment plan. Bautista Sepulveda APRN.RN INTAKE CNOV Observed: 05/25/2018 Status: COMPLETED Source: [place] 3:30 PM [facility] REPOSITORY Office Visit (UCWSTR) CEDRIC HARMAN ([id number]) 1995 F Date Time Provider Department 05/25/18 3:30 PM BAUTISTA SEPULVEDA (ELBA) [facility] During your visit today, we recorded the following information about you: Temperature Pulse Respiration Blood pressure 98 degrees 71/minute 16/minute 122/90 Weight 100.7 kg Bautista Sepulveda APRN.CNP 05/25/2018 3:50 PM Signed Subjective HPI Patient presents with: Ear Problem: x today +nasal congestion, cough, sore throat x 3-4 days Denies any otc treatment for symptoms. Review of Systems Constitutional: Negative for chills, fever and malaise/fatigue. HENT: Positive for congestion, ear pain and sore throat. Eyes: Negative for discharge and redness. Respiratory: Positive for cough. Negative for hemoptysis, sputum production, shortness of breath and wheezing. Gastrointestinal: Negative for abdominal pain, diarrhea, nausea and vomiting. Skin: Negative for rash. Neurological: Negative for headaches. PAST MEDICAL HISTORY Diagnosis Date - Chlamydia 2013 and 2017 - Depression PAST SURGICAL HISTORY Procedure Laterality Date - DELIVERY ONLY 04/12/2017 - PAST SURGICAL HISTORY OF oral (gum) surgery ALLERGIES Patient has no known allergies. MEDICATIONS dicyclomine (BENTYL) 10 mg capsule THREE TIMES DAILY BEFORE MEALS PRN For STOMACH fluconazole (DIFLUCAN) 150 mg tablet Take 1 tablet at onset of symptoms, may repeat if still symptomatic after 3 days fluticasone (FLONASE) 50 mcg/actuation nasal spray Use 2 Sprays in each nostril once daily. Rinse mouth after use. Benzonatate 200 mg capsule Take 1 capsule by mouth three times daily as needed for Cough. escitalopram oxalate (LEXAPRO) 10 mg tablet Take 10 mg by mouth once daily. norgestimate 0.25 mg-ethinyl estradiol 35 mcg (SPRINTEC) 0.25- 35 mg-mcg per tablet Take 1 tablet by mouth once daily. hydrOXYzine pamoate (VISTARIL) 25 mg capsule Take 1 capsule by mouth twice daily as needed for Anxiety. amoxicillin (AMOXIL) 875 mg tablet Take 1 tablet by mouth twice daily for 10 days. Brpckhvrbrbptao-Oegbuetrg-GS (BROMFED DM) 2-30-10 mg/5 mL syrup Take 10 mL by mouth four times daily as needed for up to 7 days. FLUoxetine HCl (PROZAC) 40 mg capsule FERROUS SULFATE (IRON ORAL) Take by mouth. FAMILY HISTORY Problem Relation Age of Onset - Allergies Mother - other (brain tumor benign) Father - other (Depression, anxiety , panic attacks) Father - Hypertension Maternal Grandmother - Lipids Maternal Grandmother - other (Depression) Maternal Grandmother - Asthma Maternal Grandfather - COPD Maternal Grandfather Social History Substance Use Topics - Smoking status: Never Smoker - Smokeless tobacco: Never Used - Alcohol use No Objective Physical Exam Constitutional: She is well-developed, well-nourished, and in no distress. HENT: Head: Normocephalic. Right Ear: External ear and ear canal normal. Tympanic membrane is erythematous. Left Ear: External ear and ear canal normal. Tympanic membrane is erythematous. Nose: Rhinorrhea present. Right sinus exhibits no maxillary sinus tenderness and no frontal sinus tenderness. Left sinus exhibits no maxillary sinus tenderness and no frontal sinus tenderness. Mouth/Throat: Posterior oropharyngeal erythema (PND) present. Eyes: Conjunctivae are normal. Neck: Normal range of motion. Neck supple. Cardiovascular: Normal rate, regular rhythm and normal heart sounds. Pulmonary/Chest: Effort normal and breath sounds normal. No respiratory distress. She has no wheezes. Abdominal: Soft. She exhibits no distension. There is no tenderness. Lymphadenopathy: She has no cervical adenopathy. Skin: Skin is warm and dry. No rash noted. Nursing note and vitals reviewed. ASSESSMENT/PLAN: 1. Acute suppurative otitis media of both ears without spontaneous rupture of tympanic membranes, recurrence not specified - ICD9: 382.00, ICD10: H66.003 (primary diagnosis) - Will begin treatment with Amoxicillin for 10 days - The patient should also be given OTC decongestants prn, OTC cough and cold meds as needed, warm salt water gargles, throat lozenges and/or OTC throat spray as needed and nasal saline gtts and suction prn for the first 5-7 days of treatment. - Supportive care with plenty of fluids, rest, and analgesia prn. - Follow up in 3-5 days if symptoms persist or worsen. 2. Viral URI with cough - ICD9: 465.9, ICD10: J06.9, B97.89 - Discussed viral etiology and rationale for treatment. - Symptomatic treatment with prn analgesia - Supportive care with fluids and rest - Follow up in 3-5 days if symptoms persist or sooner if worsening of symptoms Prescription instructions reviewed with patient as applicable. Patient advised if symptoms do not improve or if symptoms worsen sooner, to contact their primary care physician. Potential red flag symptoms discussed with the patient. Reviewed appropriate action plan to take if red flag symptoms occur. Patient agreeable to treatment plan. Bautista Sepulveda APRN.RN INTAKE Referring Provider: SELF [200] Allergies As of Date: 05/25/2018 (No Known Allergies) Date Reviewed: 05/25/2018 Reviewed by: Renu Fierro Ma - Fully Assessed Reason for Visit: Ear Problem [38] Cmt: possible fluid Primary Visit Diagnosis:Acute suppurative otitis media of both ears without spontaneous rupture of tympanic membranes, recurrence not specified [H66.003] Other Visit Diagnosis:Viral URI with cough [J06.9, B97.89] Order(s):amoxicillin (AMOXIL) 875 mg tabletTake 1 tablet by mouth twice daily for 10 days.Disp: 20 tabletRfl: 0 Upvbdltnzitnpjr-Ndfrfvgjn-KK (BROMFED DM) 2-30-10 mg/5 mL syrupTake 10 mL by mouth four times daily as needed for up to 7 days.Disp: 240 mLRfl: 0 Prescriptions as of 05/25/2018 Sig: DICYCLOMINE 10 MG CAPSULE THREE TIMES DAILY BEFORE MEAL* FLUCONAZOLE 150 MG TABLET Take 1 tablet at onset of sym* FLUTICASONE 50 MCG/ACTUATION * Use 2 Sprays in each nostril * BENZONATATE 200 MG CAPSULE Take 1 capsule by mouth three* ESCITALOPRAM 10 MG TABLET Take 10 mg by mouth once earnest* NORGESTIMATE 0.25 MG-ETHINYL * Take 1 tablet by mouth once d* HYDROXYZINE PAMOATE 25 MG CAP* Take 1 capsule by mouth twice* AMOXICILLIN 875 MG TABLET Take 1 tablet by mouth twice * BROMPHENIRAMINE-PSEUDOEPHEDRI* Take 10 mL by mouth four time* FLUOXETINE 40 MG CAPSULE IRON ORAL Take by mouth. Problem List As Of Date 05/25/2018 Noted Resolved control counseling [Z30.09] INVALID FOR*09/28/2016 Sore throat [J02.9] INVALID FOR*09/28/2016 More... Odynophagia [R13.10] INVALID FOR* More... Spotting in [O26.859] INVALID FOR*09/28/2016 More... History of depression [Z86.59] INVALID FOR*04/27/2017 More... Family history of defects [Z82.79] INVALID FOR*04/27/2017 More... Obesity in [O99.210] INVALID FOR*04/27/2017 More... Supervision of high risk due to socia*INVALID FOR*04/27/2017 More... Chlamydia infection affecting [O98.81*INVALID FOR*04/27/2017 More... Prescriptions ordered this encounter Disp Refills Start End AMOXICILLIN 875 MG TABLET 20 t* 0 05/25/2018 06/04/2018 Route: ORAL Sig: Take 1 tablet by mouth twice daily for 10 days. OBNEMJZNXZCVLJU-OHFNYWELAXZEZXB-MO 2* 240 * 0 05/25/2018 06/01/2018 Route: ORAL Sig: Take 10 mL by mouth four times daily as needed for up to 7 days. Medications Discontinued During This Encounter Qeczqvyabubmdsn-Nchdbgccs-ED (BROMFE* 118 * 0 04/02/2018 05/25/2018 Route: ORAL Sig: Take 5 mL by mouth four times daily as needed. Disc: Reason for discontinue is not on file. Disposition: Return if symptoms worsen or fail to improve. Follow-up and Disposition History Recorded Encounter Status:Closed by BAUTISTA SEPULVEDA on 05/25/18 PROGRESS Observed: 04/05/2018 Status: COMPLETED Source: [place] 8:47 AM [facility] [place] REPOSITORY HNO ID: [id number] Author: Marilynn Campbell Service: (none) Author Type: Nurse Practitioner Type: Progress Notes Filed: 04/05/2018 8:51 AM Note Text: 04/05/2018 Patient presents with: Sore Throat SUBJECTIVE: This is a 22 year old female that is here today for acute onset of sinus congestion, bilateral ear pressure, pnd, rhinorrhea, coughing for 3 weeks. Patient rates pain at 8 on Numerical pain scale. Patient has been taking sudafed, dayquil, mucinex with minimal relief of symptoms. The severity is mild and the symptoms are not improving. The patient did not have a similar problem in the last 3 months. The patient did not take any antibiotics in the last 3 months. Patient has been exposed to sick contacts. Patient denies recent travel. Pertinent medical history PAST MEDICAL HISTORY Diagnosis Date - Chlamydia 2013 and 2017 - Depression ALLERGIES Patient has no known allergies. MEDICATIONS Current Outpatient Prescriptions: dicyclomine (BENTYL) 10 mg capsule THREE TIMES DAILY BEFORE MEALS PRN For STOMACH escitalopram oxalate (LEXAPRO) 10 mg tablet Take 10 mg by mouth once daily. Vazsghtuvohbkny-Izjdutyqz-IL (BROMFED DM) 2-30-10 mg/5 mL syrup Take 5 mL by mouth four times daily as needed. norgestimate 0.25 mg-ethinyl estradiol 35 mcg (SPRINTEC) 0.25- 35 mg-mcg per tablet Take 1 tablet by mouth once daily. hydrOXYzine pamoate (VISTARIL) 25 mg capsule Take 1 capsule by mouth twice daily as needed for Anxiety. amoxicillin-clavulanic acid (AUGMENTIN) 875-125 mg per tablet Take 1 tablet by mouth twice daily for 10 days. fluconazole (DIFLUCAN) 150 mg tablet Take 1 tablet at onset of symptoms, may repeat if still symptomatic after 3 days fluticasone (FLONASE) 50 mcg/actuation nasal spray Use 2 Sprays in each nostril once daily. Rinse mouth after use. Benzonatate 200 mg capsule Take 1 capsule by mouth three times daily as needed for Cough. FLUoxetine HCl (PROZAC) 40 mg capsule FERROUS SULFATE (IRON ORAL) Take by mouth. No current facility-administered medications for this visit. SOCIAL HISTORY Social History Marital status: Single Spouse name: Years of education: 12 Number of children: 0 Occupational History Occupation Employer Comment [employer] Social History Main Topics Smoking status: Never Smoker Smokeless tobacco: Never Used Alcohol use: No Drug use: No Sexual activity: Yes Partners with: Male control/protection: Pill Other Topics Concern Service No Sleep Concern Yes Stress Concern Yes Special Diet No Exercise No Seat Belt No Comment:now does since accident Self-Exams No Social History Narrative Lives with mom and step dad, 2 brothers and cousin No pets REVIEW OF SYSTEMS Review of Systems Constitutional: Negative for chills, diaphoresis, fatigue and fever. HENT: Positive for congestion, ear pain, postnasal drip, rhinorrhea, sinus pain, sinus pressure and sore throat. Respiratory: Positive for cough. Negative for chest tightness, shortness of breath and wheezing. Cardiovascular: Negative for chest pain and palpitations. Gastrointestinal: Negative for abdominal pain, diarrhea, nausea and vomiting. Skin: Negative for rash. Neurological: Negative for dizziness, light-headedness and headaches. OBJECTIVE: BP 120/70 Pulse 90 Temp 37 ?C (98.6 ?F) (Left Tympanic) Resp 18 Wt 98.9 kg (218 lb) SpO2 98% ? No BMI 38.62 kg/m? Physical Exam Constitutional: She is oriented to person, place, and time. Vital signs are normal. She appears well-developed and well-nourished. Non-toxic appearance. HENT: Head: Normocephalic and atraumatic. Right Ear: External ear and ear canal normal. Tympanic membrane is erythematous and bulging. Left Ear: External ear and ear canal normal. Tympanic membrane is erythematous and bulging. Nose: Nose normal. Mouth/Throat: Uvula is midline and mucous membranes are normal. Posterior oropharyngeal erythema present. Neck: Normal range of motion. Cardiovascular: Normal rate, regular rhythm and normal heart sounds. Pulmonary/Chest: Effort normal and breath sounds normal. Lymphadenopathy: She has no cervical adenopathy. She has no axillary adenopathy. Neurological: She is alert and oriented to person, place, and time. Skin: Skin is warm, dry and intact. Nursing note and vitals reviewed. ASSESSMENT/PLAN: 1. Sore throat - ICD9: 462, ICD10: J02.9 (primary diagnosis) 2. Acute otitis media, bilateral - ICD9: 382.9, ICD10: H66.93 - Will begin treatment with Augmentin 875 mg PO BID for 10 days - The patient should also be given OTC decongestants prn, OTC cough and cold meds as needed, warm salt water gargles, throat lozenges and/or OTC throat spray as needed and nasal saline gtts and suction prn for the first 5-7 days of treatment. - Supportive care with plenty of fluids, rest, and analgesia prn. - Follow up in 3-5 days if symptoms persist or worsen. - AMOXICILLIN 875 MG-POTASSIUM CLAVULANATE 125 MG TABLET - eat first - FLUCONAZOLE 150 MG TABLET Marilynn Campbell APRN.CNP CNOV Observed: 04/05/2018 Status: COMPLETED Source: [place] 8:15 AM [facility] REPOSITORY Office Visit (UCWSTR) CEDRIC HARMAN ([id number]) 1995 F Date Time Provider Department 04/05/18 8:15 AM MARILYNN CAMPBELL [facility] During your visit today, we recorded the following information about you: Temperature Pulse Respiration Blood pressure 98.6 degrees 90/minute 18/minute 120/70 Weight 98.9 kg Marilynn Campbell APRN.CNP 04/05/2018 8:32 AM Signed ASSESSMENT/PLAN: 1. Sore throat - ICD9: 462, ICD10: J02.9 (primary diagnosis) 2. Acute otitis media, bilateral - ICD9: 382.9, ICD10: H66.93 - Will begin treatment with Augmentin 875 mg PO BID for 10 days - The patient should also be given OTC decongestants prn, OTC cough and cold meds as needed, warm salt water gargles, throat lozenges and/or OTC throat spray as needed and nasal saline gtts and suction prn for the first 5-7 days of treatment. - Supportive care with plenty of fluids, rest, and analgesia prn. - Follow up in 3-5 days if symptoms persist or worsen. - AMOXICILLIN 875 MG-POTASSIUM CLAVULANATE 125 MG TABLET - eat first - FLUCONAZOLE 150 MG TABLET Marilynn Campbell APRN.ANAHY Campbell APRN.CNP 04/05/2018 8:51 AM Signed 04/05/2018 Patient presents with: Sore Throat SUBJECTIVE: This is a 22 year old female that is here today for acute onset of sinus congestion, bilateral ear pressure, pnd, rhinorrhea, coughing for 3 weeks. Patient rates pain at 8 on Numerical pain scale. Patient has been taking sudafed, dayquil, mucinex with minimal relief of symptoms. The severity is mild and the symptoms are not improving. The patient did not have a similar problem in the last 3 months. The patient did not take any antibiotics in the last 3 months. Patient has been exposed to sick contacts. Patient denies recent travel. Pertinent medical history PAST MEDICAL HISTORY Diagnosis Date - Chlamydia 2013 and 2017 - Depression ALLERGIES Patient has no known allergies. MEDICATIONS Current Outpatient Prescriptions: dicyclomine (BENTYL) 10 mg capsule THREE TIMES DAILY BEFORE MEALS PRN For STOMACH escitalopram oxalate (LEXAPRO) 10 mg tablet Take 10 mg by mouth once daily. Vdowihkbwpvnyfd-Coloenbwn-QR (BROMFED DM) 2-30-10 mg/5 mL syrup Take 5 mL by mouth four times daily as needed. norgestimate 0.25 mg-ethinyl estradiol 35 mcg (SPRINTEC) 0.25- 35 mg-mcg per tablet Take 1 tablet by mouth once daily. hydrOXYzine pamoate (VISTARIL) 25 mg capsule Take 1 capsule by mouth twice daily as needed for Anxiety. amoxicillin-clavulanic acid (AUGMENTIN) 875-125 mg per tablet Take 1 tablet by mouth twice daily for 10 days. fluconazole (DIFLUCAN) 150 mg tablet Take 1 tablet at onset of symptoms, may repeat if still symptomatic after 3 days fluticasone (FLONASE) 50 mcg/actuation nasal spray Use 2 Sprays in each nostril once daily. Rinse mouth after use. Benzonatate 200 mg capsule Take 1 capsule by mouth three times daily as needed for Cough. FLUoxetine HCl (PROZAC) 40 mg capsule FERROUS SULFATE (IRON ORAL) Take by mouth. No current facility-administered medications for this visit. SOCIAL HISTORY Social History Marital status: Single Spouse name: Years of education: 12 Number of children: 0 Occupational History Occupation Employer Comment [employer] Social History Main Topics Smoking status: Never Smoker Smokeless tobacco: Never Used Alcohol use: No Drug use: No Sexual activity: Yes Partners with: Male control/protection: Pill Other Topics Concern Service No Sleep Concern Yes Stress Concern Yes Special Diet No Exercise No Seat Belt No Comment:now does since accident Self-Exams No Social History Narrative Lives with mom and step dad, 2 brothers and cousin No pets REVIEW OF SYSTEMS Review of Systems Constitutional: Negative for chills, diaphoresis, fatigue and fever. HENT: Positive for congestion, ear pain, postnasal drip, rhinorrhea, sinus pain, sinus pressure and sore throat. Respiratory: Positive for cough. Negative for chest tightness, shortness of breath and wheezing. Cardiovascular: Negative for chest pain and palpitations. Gastrointestinal: Negative for abdominal pain, diarrhea, nausea and vomiting. Skin: Negative for rash. Neurological: Negative for dizziness, light-headedness and headaches. OBJECTIVE: BP 120/70 Pulse 90 Temp 37 ?C (98.6 ?F) (Left Tympanic) Resp 18 Wt 98.9 kg (218 lb) SpO2 98% ? No BMI 38.62 kg/m? Physical Exam Constitutional: She is oriented to person, place, and time. Vital signs are normal. She appears well-developed and well-nourished. Non- toxic appearance. HENT: Head: Normocephalic and atraumatic. Right Ear: External ear and ear canal normal. Tympanic membrane is erythematous and bulging. Left Ear: External ear and ear canal normal. Tympanic membrane is erythematous and bulging. Nose: Nose normal. Mouth/Throat: Uvula is midline and mucous membranes are normal. Posterior oropharyngeal erythema present. Neck: Normal range of motion. Cardiovascular: Normal rate, regular rhythm and normal heart sounds. Pulmonary/Chest: Effort normal and breath sounds normal. Lymphadenopathy: She has no cervical adenopathy. She has no axillary adenopathy. Neurological: She is alert and oriented to person, place, and time. Skin: Skin is warm, dry and intact. Nursing note and vitals reviewed. ASSESSMENT/PLAN: 1. Sore throat - ICD9: 462, ICD10: J02.9 (primary diagnosis) 2. Acute otitis media, bilateral - ICD9: 382.9, ICD10: H66.93 - Will begin treatment with Augmentin 875 mg PO BID for 10 days - The patient should also be given OTC decongestants prn, OTC cough and cold meds as needed, warm salt water gargles, throat lozenges and/or OTC throat spray as needed and nasal saline gtts and suction prn for the first 5-7 days of treatment. - Supportive care with plenty of fluids, rest, and analgesia prn. - Follow up in 3-5 days if symptoms persist or worsen. - AMOXICILLIN 875 MG-POTASSIUM CLAVULANATE 125 MG TABLET - eat first - FLUCONAZOLE 150 MG TABLET Marilynn Campbell APRN.ANAHY Garcia LPN 04/05/2018 9:40 AM Signed Addended by: PHUONG GARCIA LPN on: 04/05/2018 09:40 AM Modules accepted: Orders Marilynn Campbell APRN.CNP 04/05/2018 9:41 AM Signed Addended by: MARILYNN CAMPBELL on: 04/05/2018 09:41 AM Modules accepted: Orders Referring Provider: SELF [200] Allergies As of Date: 04/05/2018 (No Known Allergies) Date Reviewed: 04/05/2018 Reviewed by: Renu Fierro Ma - Fully Assessed Reason for Visit: Sore Throat [200] Primary Visit Diagnosis:Sore throat [J02.9] Other Visit Diagnosis:Acute otitis media, bilateral [H66.93] Order(s):amoxicillin-clavulanic acid (AUGMENTIN) 875-125 mg per tabletTake 1 tablet by mouth twice daily for 10 days.Disp: 20 tabletRfl: 0 fluconazole (DIFLUCAN) 150 mg tabletTake 1 tablet at onset of symptoms, may repeat if still symptomatic after 3 daysDisp: 2 tabletRfl: 0 fluticasone (FLONASE) 50 mcg/actuation nasal sprayUse 2 Sprays in each nostril once daily. Rinse mouth after use.Disp: 1 BottleRfl: 11 Benzonatate 200 mg capsuleTake 1 capsule by mouth three times daily as needed for Cough.Disp: 30 capsuleRfl: 0 RAPID STREP TEST B/O [[id number]] Order #: [id number] Prescriptions as of 04/05/2018 Sig: DICYCLOMINE 10 MG CAPSULE THREE TIMES DAILY BEFORE MEAL* ESCITALOPRAM 10 MG TABLET Take 10 mg by mouth once earnest* BROMPHENIRAMINE-PSEUDOEPHEDRI* Take 5 mL by mouth four times* NORGESTIMATE 0.25 MG-ETHINYL * Take 1 tablet by mouth once d* HYDROXYZINE PAMOATE 25 MG CAP* Take 1 capsule by mouth twice* AMOXICILLIN 875 MG-POTASSIUM * Take 1 tablet by mouth twice * FLUCONAZOLE 150 MG TABLET Take 1 tablet at onset of sym* FLUTICASONE 50 MCG/ACTUATION * Use 2 Sprays in each nostril * BENZONATATE 200 MG CAPSULE Take 1 capsule by mouth three* FLUOXETINE 40 MG CAPSULE IRON ORAL Take by mouth. Problem List As Of Date 04/05/2018 Noted Resolved control counseling [Z30.09] INVALID FOR*09/28/2016 Sore throat [J02.9] INVALID FOR*09/28/2016 More... Odynophagia [R13.10] INVALID FOR* More... Spotting in [O26.859] INVALID FOR*09/28/2016 More... History of depression [Z86.59] INVALID FOR*04/27/2017 More... Family history of defects [Z82.79] INVALID FOR*04/27/2017 More... Obesity in [O99.210] INVALID FOR*04/27/2017 More... Supervision of high risk due to socia*INVALID FOR*04/27/2017 More... Chlamydia infection affecting [O98.81*INVALID FOR*04/27/2017 More... Other instructions from your clinician: ASSESSMENT/PLAN: 1. Sore throat - ICD9: 462, ICD10: J02.9 (primary diagnosis) 2. Acute otitis media, bilateral - ICD9: 382.9, ICD10: H66.93 - Will begin treatment with Augmentin 875 mg PO BID for 10 days - The patient should also be given OTC decongestants prn, OTC cough and cold meds as needed, warm salt water gargles, throat lozenges and/or OTC throat spray as needed and nasal saline gtts and suction prn for the first 5-7 days of treatment. - Supportive care with plenty of fluids, rest, and analgesia prn. - Follow up in 3-5 days if symptoms persist or worsen. - AMOXICILLIN 875 MG-POTASSIUM CLAVULANATE 125 MG TABLET - eat first - FLUCONAZOLE 150 MG TABLET Marilynn Campbell APRN.RN INTAKE Prescriptions ordered this encounter Disp Refills Start End AMOXICILLIN 875 MG-POTASSIUM CLAVULA* 20 t* 0 04/05/2018 04/15/2018 Route: ORAL Sig: Take 1 tablet by mouth twice daily for 10 days. FLUCONAZOLE 150 MG TABLET 2 ta* 0 04/05/2018 Sig: Take 1 tablet at onset of symptoms, may repeat if still symptomatic after 3 days FLUTICASONE 50 MCG/ACTUATION NASAL S* 1 Raheem* 11 04/05/2018 Route: EACH NOSTRIL Sig: Use 2 Sprays in each nostril once daily. Rinse mouth after use. BENZONATATE 200 MG CAPSULE 30 c* 0 04/05/2018 Route: ORAL Sig: Take 1 capsule by mouth three times daily as needed for Cough. Letter Text [place] [facility] of [facility] Marilynn Campbell CNP [address], [place] [address] 04/05/2018 TO WHOM IT MAY CONCERN: This is to confirm that Cedric Harman had an appointment and was seen at the [facility] in the Department of Urgent Care by Marilynn Campbell CNP on 04/05/2018. Please excuse from work for today, Apr 05, 2018. Sincerely yours, Marilynn Campbell CNP Encounter Status:Closed by MARILYNN CAMPBELL on 04/05/18 EMERGENCY DEPARTMENT Observed: 04/04/2018 Status: F Source: [place] SUMMARY 12:33 AM [facility] Medical Records Department [address] [place] [address] Emergency Department Summary 04/03/18 2300 MR#: [id number] Acct: [id number] Name: CEDRIC HARMAN Rep #: [id number] : 1995 22 From: Gabriela Goldstein MD PCP: Austin Castro MD Status: DEP ER - ER Visit Summary Date of Service: 04/03/18 Chief Complaint: Sore throat, cough History of Present Illness: The patient is a 22 F with a four- day history of cough, congestion, sore throat. She seen her PCP office and told to viral URI. Tonight she is more pressure in her sinuses. She feels dehydrated and states that she was lightheaded earlier tonight at work. T-max is 99.9. She is coughing up green sputum. She denies wheezing. Physical Examination: Vital signs are unremarkable. Temperature here is 97.6. Patient is in no acute distress and nontoxic appearing. Head and neck examination reveals TMs to be clear bilaterally. She does have 3+ tonsils with mild erythema. There is single exudate noted on the left tonsil. Uvula is midline. She is mild bilateral anterior cervical lymphadenopathy. Heart is regular rate and rhythm. Lung sounds are clear. Abdomen soft nontender. Test Results: Two-view chest x-ray is unremarkable with no focal infiltrate. Rapid strep is negative. Emergency Department Course and Treatment: Patient is given a liter of IV fluids along with 30 mg of IV Toradol. On repeat evaluation she is resting comfortably. I discussed with her I do believe her symptoms are all viral in nature. She will continue mekr-mwm-wdfykyw cold medication. She will continue to monitor her for any fever. Treatment Plan: [] Disposition: Discharge Impression: Viral URI This note was generated with [employer] dictation software. It may contain incorrect words, spelling, and punctuation that were not noted in review of the chart prior to signing ED Disposition - Plan for ED Patient: Chief Complaint: Cold Sx Referrals: Austin Castro MD [Primary Care Provider] - What to do if you have Problems For any increased pain, shortness of breath, bleeding, nausea or vomiting, chest pain, or any unexpected problems, contact your Primary Care Provider. Call [facility] ([phone]) or report to the closest Emergency Room. Call 911 if necessary. 04/04/18 0033 <Electronically signed by Gabriela Goldstein MD> Date Gabriela Goldstein MD Cosigner Signature (If Indicated): Date CC: Austin Castro MD DISCHARGE INSTRUCTION Observed: 04/03/2018 Status: F Source: [place] 11:33 PM [facility] REPOSITORY [facility] Medical Records Department [address] [place] [address] Discharge Instruction 04/03/18 2332 MR#: [id number] Acct: [id number] Name: CEDRIC HRAMAN R Rep #: [id number] : 1995 22 From: Gabriela Goldstein MD PCP: Austin Castro MD Status: PRE ER ED Disposition - Plan for ED Patient: Disposition: Home or Assisted Living Chief Complaint: Cold Sx Instructions: ED Upper Resp Infec No Abx Tx Referrals: Austin Castro MD [Primary Care Provider] - 1 Week if not improving What to do if you have Problems For any increased pain, shortness of breath, bleeding, nausea or vomiting, chest pain, or any unexpected problems, contact your Primary Care Provider. Call [facility] ([phone]) or report to the closest Emergency Room. Call 911 if necessary. 04/03/183 <Electronically signed by Gabriela Goldstein MD> Date Gabriela Goldstein MD Cosigner Signature (If Indicated): Date CC: Austin Castro MD CHEST PA AND LATERAL Observed: 04/03/2018 Status: F Source: [place] 10:58 PM [facility] REPOSITORY [facility] Imaging Services [address] [place] [address] Chest PA and Lateral MR#: [id number] Acct: [id number] Name: CEDRIC HARMAN R Rep #: [id number] : 1995 F 22 From: Pauly Saini MD PCP: Austin Castro MD Status: PRE ER Study: Chest PA and Lateral Date of Exam: 04/03/18 Exam# [id number] Ordering Dr: Gabriela Goldstein MD STUDY: X-RAY CHEST REASON FOR EXAM: Female, 22 years old. Cough. TECHNIQUE: PA and lateral views of the chest. COMPARISON: November 20, 2017 FINDINGS: The lungs are clear and expanded. There is no demonstrated pleural abnormality. Normal size heart. Normal mediastinum and eduar. Normal visualized pulmonary arteries. Normal visualized aortic arch and descending thoracic aorta. Normal visualized thoracic spine. Normal visualized ribs, clavicles, and shoulders. There is no demonstrated abnormality of the visualized soft tissue structures of the upper abdomen. RAD/Chest PA and Lateral IMPRESSION: No acute cardiopulmonary process. Electronically Signed: Pauly Saini MD at 23:22 EDT Tel , Service support , CC: Gabriela Goldstein MD; Austin Castro MD Magnetic Locater: Signed Observed: 04/03/2018 Status: C Source: [place] STREP A (THROAT 10:55 PM [facility] RAPID KULDIP) REPOSITORY Order Date: 04/03/18 Strep A Rapid Rapid Strep A Screen NEGATIVE A Disk (Conf. Cult) Beta Hemolytic Strep NOT Group A : All NEGATIVE screens will be confirmed with a culture. Performed By: #### [id number] #### [facility] [address] [place] [address]. [place], [address] GROUP A STREP BY Collected: 04/02/2018 Status: F Source: [place] PCR 2:08 PM [facility] REPOSITORY TYPE CODE TESTS RESULT OUT OF REFERENCE UNITS RANGE LAB GASSRC Throat Swab GAS Specimen Source LAB PCRGAS Negative for Group A Strep Group A PCR Streptococcus by PCR. Result Comment: This test was developed and its performance characteristics determined by [facility]'s [facility] [place] ([facility]). It has not been cleared or approved by the FDA. [facility] is regulated under CLIA as qualified to perform high-complexity testing. This test is used for clinical purposes. It should not be regarded as inv estigational or for research. Performed By: #### GASPCR #### [facility] [address] [place], [place] [address] PROGRESS Observed: 04/02/2018 Status: COMPLETED Source: [place] 2:03 PM [facility] REPOSITORY HNO ID: [id number] Author: Nicolasa (Anahy) Chrissie Service: (none) Author Type: Nurse Practitioner Type: Progress Notes Filed: 04/02/2018 2:18 PM Note Text: Subjective HPI Cedric Harman is a 22 year old female who presents with a sore throat and cough and congestion for the past 2 days. No known sick contacts. She has taken dayquil and nyquil. Review of Systems Constitutional: Negative. Negative for fever. HENT: Positive for congestion, ear pain, sinus pain and sore throat. Respiratory: Positive for cough and shortness of breath. Negative for sputum production. Cardiovascular: Negative. Negative for chest pain. Gastrointestinal: Negative. Negative for abdominal pain, nausea and vomiting. Musculoskeletal: Positive for myalgias. Skin: Negative. Negative for rash. Neurological: Negative for headaches. BP 110/70 Pulse 94 Temp 36.8 ?C (98.3 ?F) (Right Tympanic) Resp 14 Wt 97.5 kg (215 lb) SpO2 97% BMI 38.09 kg/m? PAST MEDICAL HISTORY Diagnosis Date - Chlamydia 2013 and 2016 - Depression PAST SURGICAL HISTORY Procedure Laterality Date - DELIVERY ONLY 04/12/2017 - PAST SURGICAL HISTORY OF oral (gum) surgery ALLERGIES Patient has no known allergies. MEDICATIONS escitalopram oxalate (LEXAPRO) 10 mg tablet Take 10 mg by mouth once daily. norgestimate 0.25 mg-ethinyl estradiol 35 mcg (SPRINTEC) 0.25- 35 mg-mcg per tablet Take 1 tablet by mouth once daily. hydrOXYzine pamoate (VISTARIL) 25 mg capsule Take 1 capsule by mouth twice daily as needed for Anxiety. FERROUS SULFATE (IRON ORAL) Take by mouth. FLUoxetine HCl (PROZAC) 40 mg capsule FAMILY HISTORY Problem Relation Age of Onset - Allergies Mother - other (brain tumor benign) Father - other (Depression, anxiety , panic attacks) Father - Hypertension Maternal Grandmother - Lipids Maternal Grandmother - other (Depression) Maternal Grandmother -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 months. She notes no other associated symptoms and no other alleviating or aggravating factors. ROS Const Constitutional: No excessive sweating, chills, fever(s), night sweats or body ache Eyes Eyes: No change in vision ENT ENT: No ear pain Resp Respiratory: No cough, chest congestion or shortness of breath Cardio Cardiology: No excessive sweating, chest pain at rest, chest pain with exertion, shortness of breath, dyspnea on exertion, irregular heart rhythm, generalized swelling or leg pain with exertion Gastro GI: No abdominal pain, change in stool character, change in bowel habits, nausea/dyspepsia, vomiting or diarrhea Genitourinary-Female: Positive for urinary frequency (; See HPI); no burning urination, urinary urgency, painful urination, difficulty urinating or urinary incontinence Musc Musculoskeletal: No joint pain, back pain or limited range of motion Skin Skin: No change in hair or sores Neuro Neurology: No abnormal speech or abnormal movements Endo Endocrine: No excessive sweating Exam Const General: cooperative, healthy appearing, no acute distress, in distress Nutritional Appearance: average body habitus Orientation: alert, awake, oriented x3 HENMT Head: normal to inspection Ears: hearing grossly normal bilaterally, external ears normal Nose: external nose normal, nares normal Eyes General: appearance normal, both eyes and all related structures Neck Neck: normal visual inspection, full ROM, no lymphadenopathy, no meningeal signs, supple Neck mass: No Thyroid: thyroid normal Lymphatic: no lymphadenopathy noted Chest Chest palpation AND inspection: normal inspection of the chest Resp Effort AND Inspection: normal respiratory effort, able to speak in complete sentences, symmetric chest movement, no cough Auscultation: Bilateral: Clear to Auscultation Cardio Palpation: normal PMI Rate: regular rate Rhythm: regular rhythm Heart Sounds: S1 normal, S2 normal, no gallops, no murmurs, no rubs Pulses: radial pulses present GI Inspection: normal to inspection Palpation: soft, no hepatosplenomegaly, not firm, nontender, no masses, no guarding, other (bilat flank discomfort to touch and lateral bend at waiste) General: No CVA tenderness, other (See urinalysis dip and urine hCG results) Skin General: no rashes or lesions noted Neuro General: alert, awake, oriented x3, gait normal Cognition: normal cognition Speech: speech normal Gait: normal gait Motor: muscle tone normal throughout Sensory Exam: no sensory deficits noted Extrem General: normal to inspection Psych Appearance: grossly normal Mental Status: mental status grossly normal Mood: congruent mood Affect: normal affect Speech and Movement: speech and movement normal Attitude: cooperative Thought Process: normal Thought Content: normal Judgment: judgment good Results [facility] Office Urine Color Yellow Last Edit by Noemi Griffin on 01/30/18 14:56 Office Urine Clarity Clear Last Edit by Noemi Griffin on 01/30/18 14:56 [facility] Office , Urine Negative Last Edit by Noemi Griffin on 01/30/18 14:56 Assessment AND Plan 1. UTI (urinary tract infection) N39.0 2. Abdominal pain R10.9 3. Hematuria R31.9 Plan Urinalysis dip reveals only blood, therefore urine sample sent to lab for further evaluation. Urine hCG negative. After reviewing HPI and exam findings with patient in office today, recommend appropriate hydration and bland diet and follow-up with PCP or DAY CARE ATTENDANT should symptoms persist or worsen. Patient states acknowledging understanding all the above. This note was generated with [employer] software. It may contain incorrect words, spelling, and punctuation that were not noted in checking the note before signing. Plan Detail Other Orders Orders: Coding Level of Care Code Off vis,est,level 3 Diagnoses UTI (urinary tract infection) N39.0 Abdominal pain R10.9 Hematuria R31.9 01/30/18 1544 <Electronically signed by Reggie KURTZ> Date Reggie KURTZ Cosigner Signature: Date (if applicable) CC: DISCHARGE INSTRUCTION Observed: 01/30/2018 Status: F Source: [place] 7:36 PM [facility] REPOSITORY [facility] Medical Records Department [address] [place] [address] Discharge Instruction 01/30/18 1935 MR#: [id number] Acct: [id number] Name: CEDRIC HARMAN Rep #: [id number] : 1995 22 From: Derek Coppola MD PCP: Austin Castro MD Status: REG ER ED Disposition - Plan for ED Patient: Chief Complaint: Flank Pain Instructions: ED Sprain Strain Lumbar Prescriptions: Naproxen [Naprosyn] 500 mg PO BID #20 tab Referrals: Austin Castro MD [Primary Care Provider] - What to do if you have Problems For any increased pain, shortness of breath, bleeding, nausea or vomiting, chest pain, or any unexpected problems, contact your Primary Care Provider. Call [facility] ([phone]) or report to the closest Emergency Room. Call 911 if necessary. 01/30/181935 <Electronically signed by Derek Coppola MD> Date Derek Coppola MD Cosigner Signature (If Indicated): Date CC: Austin Castro MD EMERGENCY DEPARTMENT Observed: 01/30/2018 Status: F Source: [place] SUMMARY 7:35 PM [facility] REPOSITORY [facility] Medical Records Department [address] [place] [address] Emergency Department Summary 01/30/181932 MR#: [id number] Acct: [id number] Name: CEDRIC HARMAN Rep #: [id number] : 1995 22 From: Derek Coppola MD PCP: Austin Castro MD Status: REG ER - ER Visit Summary Date of Service: 01/30/18 Chief Complaint: Lower back pain History of Present Illness: The patient is a 22 F who presents with lower back pain. It began earlier today. She complains of pain in her lower back on both sides right greater than left. However she also complains of urinary frequency. The pain is worse with bending. She was seen at an urgent care and had a normal urinalysis. Physical Examination: Afebrile vitals are stable Moist mucous membranes Heart regular rate and rhythm Lungs are clear Abdomen soft Bilateral paraspinal lumbar tenderness Alert Test Results: Urinalysis normal and negative. Emergency Department Course and Treatment: I do believe this is due to a musculoskeletal etiology. She was given naproxen here and a prescription for the same. She was discharged. She understands to return for new or worsening symptoms and was instructed on specific symptoms to monitor for, conditions under which to return to the emergency department and she was discharged home. Treatment Plan: [] Disposition: Discharge Impression: Lower back pain This note was generated with [employer] dictation software. It may contain incorrect words, spelling, and punctuation that were not noted in review of the chart prior to signing ED Disposition - Plan for ED Patient: Chief Complaint: Flank Pain Referrals: Austin Castro MD [Primary Care Provider] - What to do if you have Problems For any increased pain, shortness of breath, bleeding, nausea or vomiting, chest pain, or any unexpected problems, contact your Primary Care Provider. Call [facility] ([phone]) or report to the closest Emergency Room. Call 911 if necessary. 01/30/181934 <Electronically signed by Derek Coppola MD> Date Derek Coppola MD Cosigner Signature (If Indicated): Date CC: Austin Castro MD URINALYSIS, COMPLETE Collected: 01/30/2018 Status: F Source: [place] 6:50 PM [facility] REPOSITORY Order Comment: Order Date: 01/30/18 Order Date: 01/30/18 How was Urine Obtained? CLEAN CATCH TYPE CODE TESTS RESULT OUT OF RANGE REFERENCE UNITS LAB L400.3000 Yellow COLOR Normal Yellow LAB L400.3050 Clear Normal CLARITY Clear LAB L400.3200 Normal mg/dl Normal GLUCOSE, UR Normal LAB L400.3300 Negative mg/dL Normal BILIRUBIN URINE Negative LAB L400.3400 Negative mg/dl Normal KETONE UR Negative LAB L400.3465 1.002-1.030 Normal SP.GR. DIPSTX 1.010 LAB L400.3550 5.0 - 8.0 pH UR Normal 6.0 LAB L400.3600 Negative mg/dl PROT Normal DIPSTX Negative LAB L400.3700 Normal mg/dl Normal UROBILI Normal LAB L400.3750 Negative Normal NITRITE UR Negative LAB L400.3780 Negative /ul High 10 OCCULT BLOOD-UR LAB L400.3800 Negative /ul LEUK Normal ESTERASE Negative LAB L400.4050 0-5 /hpf WBC 0 Normal SEEN LAB L400.4100 0-5 /hpf 0 Normal RBC-UA SEEN LAB L400.4150 5-10 /hpf SQUAM Normal EPI 0-5 SEEN LAB L400.4300 None Seen /hpf 0 Normal BACTERIA SEEN LAB L400.4350 <or=2+ /hpf 0 Normal MUCUS, URINE SEEN Performed By: #### L400.0001, L400.7600 #### [facility] [address] [place], [address] ,URINE Collected: 01/30/2018 Status: F Source: [place] 6:50 PM [facility] REPOSITORY Order Comment: Order Date: 01/30/18 Order Date: 01/30/18 How was Urine Obtained? CLEAN CATCH TYPE CODE TESTS RESULT OUT OF REFERENCE UNITS RANGE LAB L400.8000 Negative Normal HCGUQUAL Negative Result Comment: Very dilute urine specimens, as indicated by a low specific gravity, may not contain technical account representative levels of hCG. If is still suspected, a first morning urine specimen should be collected 48 hours later and tested. Performed By: #### L400.0001, L400.7600 #### [facility] [address] [facility] [place], [address] URINALYSIS, COMPLETE Collected: 01/30/2018 Status: F Source: [place] 6:05 PM [facility] REPOSITORY Order Comment: How was Urine Obtained? CLEAN CATCH TYPE CODE TESTS RESULT OUT OF RANGE REFERENCE UNITS LAB L400.3000 Yellow COLOR Normal Yellow LAB L400.3050 Clear Normal CLARITY Clear LAB L400.3200 Normal mg/dl Normal GLUCOSE, UR Normal LAB L400.3300 Negative mg/dL Normal BILIRUBIN URINE Negative LAB L400.3400 Negative mg/dl Normal KETONE UR Negative LAB L400.3465 1.002-1.030 Normal SP.GR. DIPSTX 1.010 LAB L400.3550 5.0 - 8.0 pH UR Normal 7.0 LAB L400.3600 Negative mg/dl PROT Normal DIPSTX Negative LAB L400.3700 Normal mg/dl Normal UROBILI Normal LAB L400.3750 Negative Normal NITRITE UR Negative LAB L400.3780 Negative /ul High 50 OCCULT BLOOD-UR LAB L400.3800 Negative /ul LEUK Normal ESTERASE Negative LAB L400.4050 0-5 /hpf WBC 0 Normal SEEN LAB L400.4100 0-5 /hpf Normal RBC-UA 0-5 SEEN LAB L400.4150 5-10 /hpf SQUAM Normal EPI 0-5 SEEN LAB L400.4300 None Seen /hpf 0 Normal BACTERIA SEEN LAB L400.4350 <or=2+ /hpf 0 Normal MUCUS, URINE SEEN Performed By: #### L400.0001, M100.0650 #### [facility] [address] [place], [address] Observed: 01/30/2018 Status: F Source: [place] CULTURE, URINE 6:05 PM [facility] REPOSITORY Urine Culture ORGANISM 1: Escherichia coli [place] Count 11,000-25,000 ORGANISM 2: Escherichia coli [place] Count 11,000-25,000 Escherichia coli: REACTION Amoxacillin/Clavulanic Acid $ 4 S Ampicillin $ 4 S Ampicillin/Sulbactam $ <=2 S Cefazolin $ <=4 S Cefepime $ <=1 S Ceftriaxone $ <=1 S Ciprofloxacin $ >=4 R ESBL - Ertapenim $$$ <=0.5 S Gentamicin $ <=1 S Imipenem *NF 1 S Levofloxacin $ >=8 R Nitrofurantoin $ <=16 S Piperacillin/Tazobactam $$ <=4 S Tobramycin $ <=1 S Trimethoprim/Sulfametho $ >=320 R (NF) indicates non-formulary drug at [facility]. Approval by Infectious Disease Specialist required before non-formulary drugs may be ordered and/or dispensed. Escherichia coli: REACTION Amoxacillin/Clavulanic Acid $ 4 S Ampicillin $ >=32 R Ampicillin/Sulbactam $ 16 I Cefazolin $ <=4 S Cefepime $ <=1 S Ceftriaxone $ <=1 S Ciprofloxacin $ 0.5 S ESBL - Ertapenim $$$ <=0.5 S Gentamicin $ >=16 R Imipenem *NF <=0.25 S Levofloxacin $ 1 S Nitrofurantoin $ <=16 S Piperacillin/Tazobactam $$ <=4 S Tobramycin $ 8 I Trimethoprim/Sulfametho $ >=320 R (NF) indicates non-formulary drug at [facility]. Approval by Infectious Disease Specialist required before non-formulary drugs may be ordered and/or dispensed. Performed By: #### L400.0001, M100.0650 #### [facility] [address] [place], [address] EMERGENCY DEPARTMENT Observed: 01/14/2018 Status: F Source: [place] SUMMARY 4:37 PM [facility] REPOSITORY [facility] Medical Records Department [address] [place] [address] Emergency Department Summary 01/14/18 0804 MR#: [id number] Acct: [id number] Name: CEDRIC HARMAN Rep #: [id number] : 1995 22 From: Gabriela Goldstein MD PCP: Austin Castro MD Status: DEP ER - ER Visit Summary Date of Service: 01/14/18 Chief Complaint: Panic attack History of Present Illness: The patient is a 22 F with a history of anxiety depression. Patient states that a panic attack at work last night. She took Vistaril this morning without improvement. She has some chest tightness states she felt nauseated when she got herself worked up. She states she started to feel somewhat better now. She states she is on a waiting list to be seen at the counseling center but has not yet been in to see them. She denies suicidal ideation. Physical Examination: Blood pressure is 154/85, otherwise unremarkable. Head neck examination is normal. Heart is regular rate and rhythm. Lung sounds are clear. Abdomen is soft nontender. Neuro exam is normal. Psychiatric examination reveals no suicidal ideation. She does continue to feel anxious. Test Results: Patient requested urinalysis be checked in this is normal with no sign of infection. Emergency Department Course and Treatment: Oars report was performed. Patient had no controlled substances prescribed in the last year. Patient was given a dose of p.o. Ativan here. I spoke with the counselor fashion illustrator and gave them her information to they could check to see where she is in the waiting list and attempts to get her seen faster. On repeat evaluation patient is resting comfortably with no complaints. She reports feeling significantly improved. She will be given a prescription for Ativan 0.5 mg dispense #6 tabs only to be used if her Vistaril is not effective. Treatment Plan: [] Disposition: Discharge Impression: Anxiety This note was generated with [employer] dictation software. It may contain incorrect words, spelling, and punctuation that were not noted in review of the chart prior to signing ED Disposition - Plan for ED Patient: Chief Complaint: Anxiety Referrals: Austin Castro MD [Primary Care Provider] - What to do if you have Problems For any increased pain, shortness of breath, bleeding, nausea or vomiting, chest pain, or any unexpected problems, contact your Primary Care Provider. Call [facility] ([phone]) or report to the closest Emergency Room. Call 911 if necessary. 01/14/18 1637 <Electronically signed by Gabriela Goldstein MD> Date Gabriela Goldstein MD Cosigner Signature (If Indicated): Date CC: Austin Castro MD DISCHARGE INSTRUCTION Observed: 01/14/2018 Status: F Source: [place] 8:50 AM [facility] Medical Records Department [address] [place] [address] Discharge Instruction 01/14/18 0847 MR#: [id number] Acct: [id number] Name: CEDRIC HARMAN Rep #: [id number] : 1995 22 From: Gabriela Goldstein MD PCP: Austin Castro MD Status: REG ER ED Disposition - Plan for ED Patient: Disposition: Home or Assisted Living Chief Complaint: Anxiety Instructions: ED Panic Attack Prescriptions: Lorazepam [Ativan] 0.5 mg PO BID PRN PRN #6 tablet PRN Reason: Anxiety Referrals: Austin Castro MD [Primary Care Provider] - Counseling,Center [GROUP OF PHYSICIANS] - As soon as possible What to do if you have Problems For any increased pain, shortness of breath, bleeding, nausea or vomiting, chest pain, or any unexpected problems, contact your Primary Care Provider. Call [facility] ([phone]) or report to the closest Emergency Room. Call 911 if necessary. 01/14/18 0850 <Electronically signed by Gabriela Goldstein MD> Date Gabriela Goldstein MD Cosigner Signature (If Indicated): Date CC: Austin Castro MD URINALYSIS, COMPLETE Collected: 01/14/2018 Status: F Source: [place] 8:15 AM [facility] REPOSITORY Order Comment: How was Urine Obtained? OIL REFINERY PROCESS TECHNICIAN TO SPECIFY TYPE CODE TESTS RESULT OUT OF RANGE REFERENCE UNITS LAB L400.3000 Yellow COLOR Normal Straw LAB L400.3050 Clear Normal CLARITY Clear LAB L400.3200 Normal mg/dl Normal GLUCOSE, UR Normal LAB L400.3300 Negative mg/dL Normal BILIRUBIN URINE Negative LAB L400.3400 Negative mg/dl Normal KETONE UR Negative LAB L400.3465 1.002-1.030 Normal SP.GR. DIPSTX 1.005 LAB L400.3550 5.0 - 8.0 pH UR Normal 7.0 LAB L400.3600 Negative mg/dl PROT Normal DIPSTX Negative LAB L400.3700 Normal mg/dl Normal UROBILI Normal LAB L400.3750 Negative Normal NITRITE UR Negative LAB L400.3780 Negative /ul Normal OCCULT BLOOD-UR Negative LAB L400.3800 Negative /ul LEUK Normal ESTERASE Negative LAB L400.4050 0-5 /hpf WBC 0 Normal SEEN LAB L400.4100 0-5 /hpf 0 Normal RBC-UA SEEN LAB L400.4150 5-10 /hpf SQUAM Normal EPI 0-5 SEEN LAB L400.4300 None Seen /hpf 0 Normal BACTERIA SEEN LAB L400.4350 <or=2+ /hpf 0 Normal MUCUS, URINE SEEN Performed By: #### L400.0001 #### [facility] [address] [place], [address] URGENT CARE VISIT Observed: 11/29/2017 Status: F Source: [place] RE[place] 1:29 PM [facility] REPOSITORY [facility] [address] [place] [address] OFFICE VISIT Date of Service: 11/29/17 MR#: [id number] Acct: [id number] Name: CEDRIC HARMAN Rep #: [id number] : 1995 Provider: Raf KURTZ Age/Sex: 22/F Location: [facility] Status: Signed Intake Vital Signs11/29/17 Height 5 ft 3 in Intake Visit Reasons: EAR ACHE, BURNING WHEN COUGH Allergies No Known Allergies Allergy (Verified 11/29/17 12:55) Medications Dicyclomine HCl [Bentyl] 20 mg PO TIDAC #20 cap 11/05/17 [Rx Confirmed 11/29/17] Famotidine [Pepcid] 20 mg PO BID #28 tab 11/05/17 [Rx Confirmed 11/29/17] Fluoxetine [Prozac] 60 mg PO DAILY 11/05/17 [History Confirmed 11/29/17] Hydroxyzine Pamoate [Vistaril] 25 mg PO BID PRN PRN 11/05/17 [History Confirmed 11/29/17] Ondansetron [Zofran Odt] 4 mg PO Q8H PRN PRN #10 tab 11/05/17 [Rx Confirmed 11/29/17] Norgestimate-Ethinyl Estradiol [Previfem] 1 tab PO DAILY 11/20/17 [History Confirmed 11/29/17] amoxicillin 500 mg capsule 1,000 mg PO BID 10 Days #40 cap 11/29/17 [Rx Confirmed 11/29/17] PFSH Social History Smoking Status: Former smoker alcohol intake: current HPI HPI Details: CEDRIC HARMAN, is a 22 F who presents to the office today for bilateral ear pain, nasal congestion and cough. Patient states that she has had worsening allergy symptoms this year and has tried Flonase with little results. She has tried no other medications at this time. She states that her cough has been dry nonproductive and denies hemoptysis, shortness breath or difficulty breathing. She does report the cough has led to a sore throat which is aggravated by swallowing. She reports that the ear pain is bilateral however denies any otorrhea or hearing change/loss. She has had no fever, chills, sweats. No chest pain or shortness of breath. No other associated symptoms or alleviating/aggravating factors. ROS Const Constitutional: No fever(s), headache(s), anorexia, chills or abnormal sleep pattern ENT ENT: Positive for post nasal drip, sore throat, ear pain, nasal congestion and nasal discharge; no headache(s) Resp Respiratory: No shortness of breath Cardio Cardiology: No irregular heart rhythm or palpitations Gastro GI: No nausea/dyspepsia Neuro Neurology: No headache(s) or behavioral changes Psych Psychiatric: No abnormal sleep pattern, No behavioral changes Exam Const General: cooperative, healthy appearing HENMT Head: normal to inspection Ears: hearing grossly normal bilaterally, EAC's normal, TM abnormal bulging bilaterally and erythematous bilaterally Nose: external nose normal, nasal discharge clear Mouth: oral mucosae normal Throat: abnormal tonsil bilaterally Resp Effort AND Inspection: normal respiratory effort Auscultation: Bilateral: Clear to Auscultation Cardio Palpation: normal PMI Rate: regular rate Rhythm: regular rhythm Neuro General: CN's II-XI intact bilaterally, alert Psych Appearance: grossly normal Mental Status: mental status grossly normal Assessment AND Plan Problems 1. Other acute nonsuppurative otitis media of both ears, recurrence not specified H65.193 Status Acute Plan Amoxicillin as prescribed today. Encouraged to get plenty of rest, drink lots of clear liquids, and use Tylenol or Ibuprofen (unless contraindicated) for fever and comfort. Patient also educated on other symptomatic management techniques. To be seen in 7-10 days if no improvement; sooner if worsening of symptoms. Patient advised of potential red flags when appropriate report to the ED. Patient verbalized understanding above. This note was generated with [employer] software. It may contain incorrect words, spelling, and punctuation that were not noted in checking the note before signing. Medications New: Coding Level of Care Code Off vis,est,level 3 Diagnoses Other acute nonsuppurative otitis media of both ears, recurrence not specified H65.193 Otitis media type: other nonsuppurative Chronicity: acute Laterality: bilateral Recurrence: not specified as recurrent 11/29/17 1329 <Electronically signed by Raf KURTZ> Date Raf KURTZ Cosigner Signature: Date (if applicable) CC: 12 LEAD ELECTROCARDIOGRAM Observed: 11/23/2017 Status: F Source: [place] 1:32 PM [facility] REPOSITORY [facility] Cardiovascular Services [address] [place] [address] 12 Lead EKG 11/20/17 1712 MR#: [id number] Acct: [id number] Name: CEDRIC HARMAN Roberto Rep #: [id number] : 1995 22 From: Nikolay Ramirez MD Attending Dr: Status: DEP ER Ordering Dr: Johny Wolfe DO Date: 11/20/17 Location: ED Sex: F C Admitted: Test Reason : SOB Blood Pressure : / mmHG Vent. Rate : 077 BPM Atrial Rate : 077 BPM P-R Int : 156 ms QRS Dur : 092 ms QT Int : 368 ms P-R-T Axes : 039 016 026 degrees QTc Int : 416 ms Normal sinus rhythm with sinus arrhythmia Normal ECG Confirmed by ASHLEY FORD, NIKOLAY ([id number]), index editor RASHIDA SANTOS ([id number]) on 11/23/2017 1:32:04 PM Referred By: JAIR Confirmed By:NIKOLAY RAMIREZ MD 11/23/17 1332 Date Nikolay Ramirez MD CC: Austin Castro MD; Johny Wolfe Signed EMERGENCY DEPARTMENT Observed: 11/20/2017 Status: F Source: [place] SUMMARY 7:15 PM [facility] REPOSITORY [facility] Medical Records Department [address] [place] [address] Emergency Department Summary 11/20/17 1659 MR#: [id number] Acct: [id number] Name: CEDRIC HARMAN Rep #: [id number] : 1995 22 From: Johny Castro PCP: Austin Castro MD Status: REG ER - ER Visit Summary Date of Service: 11/20/17 Chief Complaint: Dyspnea History of Present Illness: The patient is a 22 F worsening dyspnea since this morning. No cough or wheeze. No fevers. Symptoms worse with exertion with tightness. No leg pain or cramps. Remote tobacco 1 year ago. Patient is on oral control with estrogen. No recent travel, or immobilizations. Had a 7 months ago. No family history of clotting disorders. No history of PE or DVT. Physical Examination: General: Alert and oriented 3, no acute distress HEENT: Normocephalic, atraumatic. Moist mucosa membranes Neck: supple, nontender. Cardiovascular: Regular rate and rhythm, no murmurs Respiratory: Normal breath sounds, symmetric, no distress Abdomen: Soft, nontender, nondistended Extremities: Nontender, no edema, pulses intact 4 Neuro: no focal neurological deficits. Test Results: EKG sinus rate of [address]-T wave changes. Hemoglobin 13.5. HCG negative. D-dimer -0.49. Chest x-ray: No acute process Emergency Department Course and Treatment: Patient vitals stable concerns for exertional dyspnea. Low risk Wells criteria are for PE due to being on estrogen. D-dimer obtained negative range. Labs chest x-ray EKG normal. Patient is reassured. Follow-up with PCP. She return if any worsening symptoms. All questions were answered. Treatment Plan: [] Disposition: Discharge Impression: 1. Dyspnea This note was generated with [employer] dictation software. It may contain incorrect words, spelling, and punctuation that were not noted in review of the chart prior to signing ED Disposition - Plan for ED Patient: Disposition: Home or Assisted Living Chief Complaint: Shortness of Breath Diagnosis: Shortness of breath Instructions: ED Dyspnea Shortness of Breath Referrals: Austin Castro MD [Primary Care Provider] - 3-5 Days if not improving What to do if you have Problems For any increased pain, shortness of breath, bleeding, nausea or vomiting, chest pain, or any unexpected problems, contact your Primary Care Provider. Call [facility] ([phone]) or report to the closest Emergency Room. Call 911 if necessary. 11/20/17 1915 <Electronically signed by Johny Castro> Date Johny Castro Cosigner Signature (If Indicated): Date CC: Austin Castro MD CHEST PA AND LATERAL Observed: 11/20/2017 Status: F Source: [place] 6:02 PM [facility] REPOSITORY [facility] Imaging Services [address] [place] [address] Chest PA and Lateral MR#: [id number] Acct: [id number] Name: CEDRIC HARMAN Rep #: [id number] : 1995 F 22 From: Gabriela Medina MD PCP: Austin Castro MD Status: REG ER Study: Chest PA and Lateral Date of Exam: 11/20/17 Exam# [id number] Ordering Dr: Johny Wolfe DO STUDY: X-RAY CHEST REASON FOR EXAM: Female, 22 years old. Shortness of breath TECHNIQUE: Frontal and lateral views of the chest were obtained. COMPARISON: None. FINDINGS: The lungs are underaerated. There are no focal airspace opacities. There is no demonstrated pleural abnormality. The cardiac silhouette is normal in size. The mediastinum and hilar regions are unremarkable. Normal visualized pulmonary arteries. Normal visualized aortic arch and descending thoracic aorta. The thoracic spine is unremarkable. The visualized ribs, clavicles, and shoulders are unremarkable. There is no demonstrated abnormality of the visualized upper abdomen. RAD/Chest PA and Lateral IMPRESSION: No acute cardiopulmonary abnormalities. Electronically Signed: Gabriela Medina MD at 19:00 EDT Tel Direct: [phone], Service support , CC: Austin Castro MD; Johny Wolfe Magnetic Locater: Signed CBC W/DIFF, AUTOMATED Collected: 11/20/2017 Status: F Source: [place] 5:10 PM [facility] REPOSITORY TYPE CODE TESTS RESULT OUT OF RANGE REFERENCE UNITS LAB L100.1000 4.4-11.0 K/mm3 Normal WBC 7.9 LAB L100.1200 4.2-5.4 M/mm3 Normal RBC 5.09 LAB L100.1300 12.0-15.0 g/dl Normal HGB 13.5 LAB L100.1400 37-47 % Normal HCT 41.5 LAB L100.1500 81-99 fL Normal MCV 81.5 LAB L100.1600 27.0-32.0 pg Low MCH 26.5 LAB L100.1700 32-36 g/gl Normal MCHC 32.5 LAB L100.1810 11.6-14.6 % Normal RDW CV 14.3 LAB L100.1820 35.1-43.9 fl Normal RDW SD 42.4 LAB L100.1900 150-450 K/mm3 Normal PLT 267 LAB L100.2000 6.2-12.0 fl Normal MPV 11.3 LAB L100.2100 47-70 % Normal NEUT% 68.1 LAB L100.2200 19-41 % Normal LY% 22.9 LAB L100.2300 0-10 % Normal MONO% 6.7 LAB L100.2400 0-5 % Normal EO% 1.8 LAB L100.2500 0-1 % Normal BASO% 0.4 LAB L100.2550 0.0-0.9 % Normal IM GRAN % 0.100 Result Comment: IG% - Immature Granulocytes (promyelocytes, myelocytes and metamyelocytes) > 1% indicates that a LEFT SHIFT is Present. LAB L100.2620 2.0-7.7 X10 3/uL Normal Absolute Neut 5.4 LAB L100.2720 0.83-4.51 X10 3/ul Normal Absolute Lymph 1.82 Performed By: #### L100.0100 #### [facility] [address] [place], [address] BASIC METABOLIC Collected: 11/20/2017 Status: F Source: [place] PROFILE (BMP) 5:10 PM [facility] REPOSITORY TYPE CODE TESTS RESULT OUT OF RANGE REFERENCE UNITS LAB L501.0100 74-106 mg/dL Normal GLU 101 Result Comment: Fasting Glucose result from 100 to 125 mg/dL suggests IMPAIRED HOMEOSTASIS per A.D.A. criteria. Please note revised GLUCOSE reference range effective 2017. LAB L501.1000 7-18 mg/dL Normal BUN 8 LAB L501.1100 0.55-1.02 mg/dL Normal CREAT,SERUM 0.62 Result Comment: The validity of the calculated GFR AND GFRAA in patients over 70 years has not been determined. Clinical correlation is essential. LAB L501.1110 >60 mL/min Normal EST GFR 131 Result Comment: Non- GFR Calc LAB L501.1115 >60 mL/min Normal EST GFR - AA 159 Result Comment: GFR Calc LAB L501.1255 ml/min Normal Estimated CRCL 119.73 LAB L501.1300 10-20 RATIO BUN/CRE Normal 13.0 LAB L501.2200 8.5-10 mg/dL .1 CA Normal 9.1 LAB L501.5300 136-14 mmol/L 5 NA Normal 139 LAB L501.5600 3.5-5. mmol/L 1 K Normal 3.8 LAB L501.5900 98-107 mmol/L CL Normal 104 LAB L501.6100 21.0-3 mmol/L 2.0 CO2 Normal 28.0 LAB L501.6200 5-15 GAP Normal 7 Performed By: #### L500.2500 #### [facility] [address] [place], [address] D-DIMER QUANTITATIVE Collected: 11/20/2017 Status: F Source: [place] (DVT/PE) 5:10 PM [facility] REPOSITORY TYPE CODE TESTS RESULT OUT OF RANGE REFERENCE UNITS LAB L300.8000 0.27-0.49 FEU/ug/m Normal D-DIMER 0.49 QUANT Result Comment: NORMAL D-Dimer level (<0.50) indicates no DVT or PE. Performed By: #### L300.8000 #### [facility] [address] [place], [address] ,SERUM,HCG QUALI. Collected: Status: F Source: [place] 11/20/2017 5:10 PM [facility] REPOSITORY TYPE CODE TESTS RESULT OUT OF REFERENCE UNITS RANGE LAB L700.7000 0-9 Nonpreg Negative Normal HCGSQUAL NEGATIVE LAB L700.6700 =>Qualitative mIU/mL Normal HCG Qual < 1 triggr Performed By: #### L700.6800 #### [facility] [address] [facility] [place], [address] EMERGENCY DEPARTMENT Observed: 11/05/2017 Status: F Source: [place] SUMMARY 12:39 PM [facility] REPOSITORY [facility] Medical Records Department [address] [place] [address] Emergency Department Summary 11/05/17 0905 MR#: [id number] Acct: [id number] Name: CEDRIC HARMAN Rep #: [id number] : 1995 22 From: Kin Lucas MD PCP: Austin Castro MD Status: DEP ER - ER Visit Summary Date of Service: 11/05/17 Chief Complaint: Upper abdominal pain History of Present Illness: The patient is a 22 F Zentz to the emergency department with upper abdominal pain. The patient states that she ate [employer] at about 11 PM last night. She states that she woke rather suddenly at about 2 AM. She had a sharp stabbing pain in the midepigastric area. She had mild nausea. She denies any vomiting. States the pain really has not subsided. She tried belching. She has not taken anything for the pain. She states that she is not really had pain like this before. She states that she was looking on the Internet and was concerned she may have pancreatitis. Only past surgical history is significant for prior . There is no family history of Crohn's disease or ulcerative colitis. She denies any change in bowel movements. Physical Examination: Vital signs reviewed General: Well-nourished, well-developed Head: Normocephalic, atraumatic Eyes: Pupils equal and reactive, extraocular muscles intact Neck, supple, no lymphadenopathy Heart: Regular rate and rhythm Respiratory: No distress, clear bilaterally Abdomen: Soft, minimally tender in the midepigastric area without rebound or guarding, negative Pierce sign, nondistended, no peritoneal signs Back: Nontender Extremities: Nontender, no edema, no cords Skin: Normal color no rash Neuro: Alert and oriented, no focal or lateralizing deficits Test Results: [] Emergency Department Course and Treatment: The patient had very minimal tenderness in the midepigastric area. IV was established. She is given fluids, Zofran, GI cocktail. She did have some improvement of her symptoms. Screening labs including liver and lipase are unremarkable. On reevaluation she is resting comfortably. I do feel this is more likely inflammation of the stomach lining. The patient was placed on Pepcid and Bentyl. She will be given Zofran for nausea control. She was counseled on concerning symptoms, foods to avoid, dietary counseling, and reasons to return. She will be discharged home. Treatment Plan: [] Disposition: Discharge Impression: 1. Gastritis This note was generated with [employer] dictation software. It may contain incorrect words, spelling, and punctuation that were not noted in review of the chart prior to signing ED Disposition - Plan for ED Patient: Chief Complaint: Abd Pain Instructions: ED PUD Vs Gastritis Prescriptions: Ondansetron [Zofran Odt] 4 mg PO Q8H PRN PRN #10 tab PRN Reason: Nausea Dicyclomine HCl [Bentyl] 20 mg PO TIDAC #20 cap Famotidine [Pepcid] 20 mg PO BID #28 tab Referrals: Austin Castro MD [Primary Care Provider] - What to do if you have Problems For any increased pain, shortness of breath, bleeding, nausea or vomiting, chest pain, or any unexpected problems, contact your Primary Care Provider. Call [facility] [facility] [employer] [facility] ([phone]) or report to the closest Emergency Room. Call 911 if necessary. 11/05/17 2362 <Electronically signed by Kin Lucas MD> Date Kin Coppolaignkim Signature (If Indicated): Date CC: Austin Castro MD CBC W/DIFF, AUTOMATED Collected: 11/05/2017 Status: F Source: [place] 9:26 AM [facility] REPOSITORY TYPE CODE TESTS RESULT OUT OF RANGE REFERENCE UNITS LAB L100.1000 4.4-11.0 K/mm3 Normal WBC 6.6 LAB L100.1200 4.2-5.4 M/mm3 Normal RBC 4.52 LAB L100.1300 12.0-15.0 g/dl Normal HGB 12.1 LAB L100.1400 37-47 % Normal HCT 37.8 LAB L100.1500 81-99 fL Normal MCV 83.6 LAB L100.1600 27.0-32.0 pg Low MCH 26.8 LAB L100.1700 32-36 g/gl Normal MCHC 32.0 LAB L100.1810 11.6-14.6 % High RDW CV 14.9 LAB L100.1820 35.1-43.9 fl High RDW SD 45.1 LAB L100.1900 150-450 K/mm3 Normal PLT 255 LAB L100.2000 6.2-12.0 fl Normal MPV 10.7 LAB L100.2100 47-70 % Normal NEUT% 63.1 LAB L100.2200 19-41 % Normal LY% 27.0 LAB L100.2300 0-10 % Normal MONO% 7.0 LAB L100.2400 0-5 % Normal EO% 2.4 LAB L100.2500 0-1 % Normal BASO% 0.5 LAB L100.2550 0.0-0.9 % Normal IM GRAN % 0.000 Result Comment: IG% - Immature Granulocytes (promyelocytes, myelocytes and metamyelocytes) > 1% indicates that a LEFT SHIFT is Present. LAB L100.2620 2.0-7.7 X10 3/uL Normal Absolute Neut 4.1 LAB L100.2720 0.83-4.51 X10 3/ul Normal Absolute Lymph 1.77 Performed By: #### L100.0100 #### [facility] [address], [address] COMPREHENSIVE METABOLIC Collected: 11/05/2017 Status: F Source: [place] 9:26 AM [facility] REPOSITORY TYPE CODE TESTS RESULT OUT OF RANGE REFERENCE UNITS LAB L501.0100 74-106 mg/dL Normal GLU 86 Result Comment: Please note revised GLUCOSE reference range effective 2017. LAB L501.1000 7-18 mg/dL Normal BUN 10 LAB L501.1100 0.55-1.02 mg/dL Normal CREAT,SERUM 0.55 Result Comment: The validity of the calculated GFR AND GFRAA in patients over 70 years has not been determined. Clinical correlation is essential. LAB L501.1110 >60 mL/min Normal EST GFR 148 Result Comment: Non- GFR Calc LAB L501.1115 >60 mL/min Normal EST GFR - AA 180 Result Comment: GFR Calc LAB L501.1255 ml/min Normal Estimated CRCL 140.89 LAB L501.1300 10-20 RATIO BUN/CRE Normal 18.1 LAB L501.1500 6.4-8. g/dL 2 T PROT Normal 7.6 LAB L501.1800 3.2-5. g/dL Low 0 ALB 3.1 LAB L501.1950 2.2-4. g/dL High 2 GLOB 4.5 LAB L501.2000 0.9-2. RATIO Low 4 A/G 0.7 LAB L501.2200 8.5-10 mg/dL Low .1 CA 8.4 LAB L501.4100 15-37 U/L Low AST 13 LAB L501.4305 45-117 U/L ALK P Normal 98 LAB L501.4405 13-56 U/L ALT Normal 16 LAB L501.4600 0.20-1 mg/dL .00 T BILI Normal 0.20 LAB L501.5300 136-14 mmol/L 5 NA Normal 141 LAB L501.5600 3.5-5. mmol/L 1 K Normal 4.2 LAB L501.5900 98-107 mmol/L CL Normal 105 LAB L501.6100 21.0-3 mmol/L 2.0 CO2 Normal 28.0 LAB L501.6200 5-15 GAP Normal 8 Performed By: #### L500.4050, L501.2450 #### [facility] [address] [place], [address] LIPASE Collected: 11/05/2017 Status: F Source: [place] 9:26 AM [facility] REPOSITORY TYPE CODE TESTS RESULT OUT OF RANGE REFERENCE UNITS LAB L501.2450 73-393 U/L Normal LIPASE 106 Performed By: #### L500.4050, L501.2450 #### [facility] [address] [place], [address] EMERGENCY DEPARTMENT Observed: 10/28/2017 Status: F Source: [place] SUMMARY 1:49 AM [facility] REPOSITORY [facility] Medical Records Department [address] [facility] [place] [address] Emergency Department Summary 10/28/17 0145 MR#: [id number] Acct: [id number] Name: CEDRIC HARMAN Rep #: [id number] : 1995 22 From: Johny Castro PCP: Austin Castro MD Status: REG ER - ER Visit Summary Date of Service: 10/28/17 Chief Complaint: Hematuria History of Present Illness: The patient is a 22 F blood upon wiping after urination. Minimal abdominal cramping. No flank pain. No fever. No nausea or vomiting. No tobacco history. No history of kidney stones. History of UTI in the past. No other complaints. Physical Examination: General: Alert and oriented 3, no acute distress HEENT: Normocephalic, atraumatic. Moist mucosa membranes Neck: supple, nontender. Cardiovascular: Regular rate and rhythm, no murmurs Respiratory: Normal breath sounds, symmetric, no distress Abdomen: Soft, nontender, nondistended, no guarding or rebound Back: No CVA tenderness. Extremities: Nontender, no edema, pulses intact 4 Neuro: no focal neurological deficits. Test Results: HCG negative. UA with 25 leuks, blood of 25. Emergency Department Course and Treatment: Patient nontoxic, vital signs stable. No clinical presentation for concerns or kidney stones. HCG negative. UA noted leukocytes with hematuria. She be placed on 5 days of Keflex. She will be given follow- up with urology for hematuria if symptoms persist. Treatment Plan: [] Disposition: Discharge Impression: 1. UTI 2. Hematuria This note was generated with [employer] dictation software. It may contain incorrect words, spelling, and punctuation that were not noted in review of the chart prior to signing ED Disposition - Plan for ED Patient: Disposition: Home or Assisted Living Chief Complaint: Complaint Diagnosis: UTI (urinary tract infection), Hematuria Instructions: ED UTI Cystitis Female, ED Hematuria Prescriptions: Cephalexin [Keflex] 500 mg PO BID #10 capsule Referrals: Austin Castro MD [Primary Care Provider] - Jeff Stanley MD [STAFF PHYSICIAN] - 5-7 Days What to do if you have Problems For any increased pain, shortness of breath, bleeding, nausea or vomiting, chest pain, or any unexpected problems, contact your Primary Care Provider. Call [facility] ([phone]) or report to the closest Emergency Room. Call 911 if necessary. 10/28/17 0149 <Electronically signed by Johny Castro> Date Johny Castro Cosigner Signature (If Indicated): Date CC: Austin Castro MD ,URINE Collected: 10/28/2017 Status: F Source: [place] 12:45 AM [facility] REPOSITORY Order Comment: Order Date: 10/28/17 TYPE CODE TESTS RESULT OUT OF REFERENCE UNITS RANGE LAB L400.8000 Negative Normal HCGUQUAL Negative Result Comment: Very dilute urine specimens, as indicated by a low specific gravity, may not contain technical account representative levels of hCG. If is still suspected, a first morning urine specimen should be collected 48 hours later and tested. Performed By: #### L400.7600 #### [facility] [address] [place], [address] URINALYSIS, COMPLETE Collected: 10/28/2017 Status: F Source: [place] 12:45 AM [facility] REPOSITORY Order Comment: Order Date: 10/28/17 How was Urine Obtained? OIL REFINERY PROCESS TECHNICIAN TO SPECIFY TYPE CODE TESTS RESULT OUT OF RANGE REFERENCE UNITS LAB L400.3000 Yellow COLOR Normal Yellow LAB L400.3050 Clear Normal CLARITY Clear LAB L400.3200 Normal mg/dl Normal GLUCOSE, UR Normal LAB L400.3300 Negative mg/dL Normal BILIRUBIN URINE Negative LAB L400.3400 Negative mg/dl Normal KETONE UR Negative LAB L400.3465 1.002-1.030 Normal SP.GR. DIPSTX 1.025 LAB L400.3550 5.0 - 8.0 pH UR Normal 6.0 LAB L400.3600 Negative mg/dl High PROT 30 DIPSTX LAB L400.3700 Normal mg/dl Normal UROBILI Normal LAB L400.3750 Negative Normal NITRITE UR Negative LAB L400.3780 Negative /ul High 25 OCCULT BLOOD-UR LAB L400.3800 Negative /ul High LEUK 25 ESTERASE LAB L400.4050 0-5 /hpf WBC Normal 0-5 SEEN LAB L400.4100 0-5 /hpf 0 Normal RBC-UA SEEN LAB L400.4150 5-10 /hpf SQUAM Normal EPI 10-25 SEEN LAB L400.4300 None Seen /hpf 0 Normal BACTERIA SEEN LAB L400.4350 <or=2+ /hpf 0 Normal MUCUS, URINE SEEN Performed By: #### L400.0001 #### [facility] [address] [facility] [place], [address] PROGRESS Observed: 10/23/2017 Status: COMPLETED Source: [place] 2:33 PM [facility] REPOSITORY HNO ID: [id number] Author: Юлия (Anahy) Older Service: (none) Author Type: Nurse Practitioner Type: Progress Notes Filed: 10/23/2017 2:55 PM Note Text: CC: Patient presents with: Nasal Congestion: with cough and B/L ears feel clogged HPI: Cedric Harman is a 22 year old female who presents to the office with complaint of respiratory symptoms for a week. Symptoms are worsening Associated symptoms includes nasal congestion, rhinorrhea, facial pain/pressure, headache, ear pressure , cough, purulent nasal drainage, fatigue, wheezing, dyspnea, vomiting and chest congestion. Treatments tried include OTC cold medicine with no relief of symptoms. Sick contacts: unknown. History of asthma, frequent episodes of bronchitis, chronic bronchitis, bronchiectasis or COPD: No Smoker: No Seasonal/environmental allergies: Yes seasonal The ROS is otherwise negative. The patient's pmh, medications, allergies, and past visits are reviewed. PHYSICAL EXAM: BP 92/56 Pulse 88 Temp 37 ?C (98.6 ?F) (Tympanic) Resp 20 Wt 96.6 kg (213 lb) BMI 37.73 kg/m2 General appearance: tired/ill appearing, in no acute distress Head: Normocephalic Eyes: conjunctiva pink and moist, no icterus, sclera white, non-injected Ears: Right ear: External ear/canal- Normal, TM - erythematous. Left ear: External ear/canal- Normal, TM - clear with good landmarks Nose: purulent rhinorrhea, mucosa erythematous and swollen, sinus tenderness over maxillary sinuses bilateral. Oropharynx:no erythema, tonsillar hypertrophy: 1+ Neck:supple and positive findings: few small anterior cervical nodes Heart: Negative. RRR without obvious murmur, gallop, or rubs. No ectopy. Lungs: clear to auscultation, without rales or wheeze, good air exchange ASSESSMENT/PLAN: 1. Acute otitis media, right - ICD9: 382.9, ICD10: H66.91 (primary diagnosis) - Will begin treatment with Augmentin 875 mg PO BID for 7 days - Follow up in 3-5 days if symptoms persist or worsen. 2. Acute non-recurrent sinusitis, unspecified location - ICD9: 461.9, ICD10: J01.90 - Will begin treatment with as above - The patient should also be given OTC cough and cold meds as needed for the first 5-7 days of treatment. - Supportive care with plenty of fluids, rest, and analgesia prn. - Follow up in 3-5 days if symptoms persist or worsen. 3. Cough - ICD9: 786.2, ICD10: R05 - CODEINE 10 MG-GUAIFENESIN 100 MG/5 ML ORAL LIQUID Prescription instructions reviewed with patient as applicable. Potential red flag symptoms discussed with the patient. Reviewed appropriate action plan to take if red flag symptoms occur. Patient agreeable to treatment plan. Юлия Pulliam APRN.CNP CNOV Observed: 10/23/2017 Status: COMPLETED Source: [place] 2:00 PM [facility] REPOSITORY Office Visit (WSTR) CEDRIC HARMAN ([id number]) 1995 F Date Time Provider Department 10/23/17 2:00 PM ЮЛИЯ PULLIAM (ANAHY) WSTR During your visit today, we recorded the following information about you: Temperature Pulse Respiration Blood pressure 98.6 degrees 88/minute 20/minute 92/56 Weight 96.6 kg Юлия Pulliam APRN.CNP 10/23/2017 2:55 PM Signed CC: Patient presents with: Nasal Congestion: with cough and B/L ears feel clogged HPI: Cedric Harman is a 22 year old female who presents to the office with complaint of respiratory symptoms for a week. Symptoms are worsening Associated symptoms includes nasal congestion, rhinorrhea, facial pain/pressure, headache, ear pressure , cough, purulent nasal drainage, fatigue, wheezing, dyspnea, vomiting and chest congestion. Treatments tried include OTC cold medicine with no relief of symptoms. Sick contacts: unknown. History of asthma, frequent episodes of bronchitis, chronic bronchitis, bronchiectasis or COPD: No Smoker: No Seasonal/environmental allergies: Yes seasonal The ROS is otherwise negative. The patient's pmh, medications, allergies, and past visits are reviewed. PHYSICAL EXAM: BP 92/56 Pulse 88 Temp 37 ?C (98.6 ?F) (Tympanic) Resp 20 Wt 96.6 kg (213 lb) BMI 37.73 kg/m2 General appearance: tired/ill appearing, in no acute distress Head: Normocephalic Eyes: conjunctiva pink and moist, no icterus, sclera white, non-injected Ears: Right ear: External ear/canal- Normal, TM - erythematous. Left ear: External ear/canal- Normal, TM - clear with good landmarks Nose: purulent rhinorrhea, mucosa erythematous and swollen, sinus tenderness over maxillary sinuses bilateral. Oropharynx:no erythema, tonsillar hypertrophy: 1+ Neck:supple and positive findings: few small anterior cervical nodes Heart: Negative. RRR without obvious murmur, gallop, or rubs. No ectopy. Lungs: clear to auscultation, without rales or wheeze, good air exchange ASSESSMENT/PLAN: 1. Acute otitis media, right - ICD9: 382.9, ICD10: H66.91 (primary diagnosis) - Will begin treatment with Augmentin 875 mg PO BID for 7 days - Follow up in 3-5 days if symptoms persist or worsen. 2. Acute non-recurrent sinusitis, unspecified location - ICD9: 461.9, ICD10: J01.90 - Will begin treatment with as above - The patient should also be given OTC cough and cold meds as needed for the first 5-7 days of treatment. - Supportive care with plenty of fluids, rest, and analgesia prn. - Follow up in 3-5 days if symptoms persist or worsen. 3. Cough - ICD9: 786.2, ICD10: R05 - CODEINE 10 MG-GUAIFENESIN 100 MG/5 ML ORAL LIQUID Prescription instructions reviewed with patient as applicable. Potential red flag symptoms discussed with the patient. Reviewed appropriate action plan to take if red flag symptoms occur. Patient agreeable to treatment plan. DANNY Dubois APRN.CNP 10/23/2017 2:39 PM Signed 1.) Get more rest than you usually [...] pressure concerns, take Sudafed as a decongestant (decreases stuffiness-lets drain), but realize that you will [...] and not with prostate problems can try [id number] Coricidin HBP for congestion. 5.) For nasal/sinus [...] oral contraceptives, use another form of protection (condoms, foams, jellies, diaphragm) throught the end of whatever pill pack you are on in 10 days. If you are not improving in 3-5 days or are worsening follow up with the office at [phone] Referring Provider: SELF [200] Allergies As of Date: 10/23/2017 (No Known Allergies) Date Reviewed: 10/23/2017 Reviewed by: Milly Abreu LPN - Fully Assessed Reason for Visit: Nasal Congestion [235] Cmt: with cough and B/L ears feel clogged Primary Visit Diagnosis:Acute otitis media, right [H66.91] Other Visit Diagnoses:Acute non-recurrent sinusitis, unspecified location [J01.90] Cough [R05] Order(s):amoxicillin-clavulanic acid (AUGMENTIN) 875-125 mg per tabletTake 1 tablet by mouth twice daily for 7 days.Disp: 14 tabletRfl: 0 codeine-guaiFENesin (ROBITUSSIN AC) 10-100 mg/5 mL syrupTake 5-10 mL by mouth four times daily as needed for Cough for up to 3 days. May cause drowsiness.Disp: 120 mLRfl: 0 Prescriptions as of 10/23/2017 Sig: FLUOXETINE 40 MG CAPSULE NORGESTIMATE 0.25 MG-ETHINYL * Take 1 tablet by mouth once d* HYDROXYZINE PAMOATE 25 MG CAP* Take 1 capsule by mouth twice* IRON ORAL Take by mouth. AMOXICILLIN 875 MG-POTASSIUM * Take 1 tablet by mouth twice * CODEINE 10 MG-GUAIFENESIN 100* Take 5-10 mL by mouth four ti* Problem List As Of Date 10/23/2017 Noted Resolved control counseling [Z30.09] INVALID FOR*09/28/2016 Sore throat [J02.9] INVALID FOR*09/28/2016 More... Odynophagia [R13.10] INVALID FOR* More... Spotting in [O26.859] INVALID FOR*09/28/2016 More... History of depression [Z86.59] INVALID FOR*04/27/2017 More... Family history of defects [Z82.79] INVALID FOR*04/27/2017 More... Obesity in [O99.210] INVALID FOR*04/27/2017 More... Supervision of high risk due to socia*INVALID FOR*04/27/2017 More... Chlamydia infection affecting [O98.81*INVALID FOR*04/27/2017 More... [...] pressure concerns, take Sudafed as a decongestant (decreases stuffiness-lets drain), but realize that you will [...] and not with prostate problems can try [id number]-lhr-eyjzivf Coricidin HBP for congestion. 5.) For nasal/sinus [...] oral contraceptives, use another form of protection (condoms, foams, jellies, diaphragm) throught the end of whatever pill pack you are on in 10 days. If you are not improving in 3-5 days or are worsening follow up with the office at [phone] Prescriptions ordered this encounter Disp Refills Start End AMOXICILLIN 875 MG-POTASSIUM CLAVULA* 14 t* 0 10/23/2017 10/30/2017 Class: Print RX Route: ORAL Sig: Take 1 tablet by mouth twice daily for 7 days. CODEINE 10 MG-GUAIFENESIN 100 MG/5 M* 120 * 0 10/23/2017 10/26/2017 Class: Print RX Route: ORAL Sig: Take 5-10 mL by mouth four times daily as needed for Cough for up to 3 days. May cause drowsiness. Encounter Status:Closed by ЮЛИЯ PULLIAM CNP on 10/23/17 URGENT CARE VISIT Observed: 10/19/2017 Status: F Source: [place] REPORT 4:36 PM [facility] RE[facility]IT[facility] [address] [place] [address] OFFICE VISIT Date of Service: 10/19/17 MR#: [id number] Acct: [id number] Name: CEDRIC HARMAN Rep #: [id number] : 1995 Provider: Reggie KURTZ Age/Sex: 22/F Location: [facility] Status: Signed Intake Vital Signs10/19/17 Height 5 ft 2 in Intake Visit Reasons: UTI, AND HEAD CONGESTION Chief Complaint: Cough, recheck UTI Is patient in pain?: No Allergies No Known Allergies Allergy (Verified 10/19/17 16:23) Medications Ferrous Sulfate 325 mg PO BIDCM #60 tab 04/15/17 [Rx Confirmed 10/09/17] Fluoxetine [Prozac] 10 mg PO DAILY #30 cap 04/15/17 [Rx Confirmed 10/09/17] benzonatate 200 mg capsule 200 mg PO TID PRN #20 cap 10/19/17 [Rx Confirmed 10/19/17] PFSH Social History Smoking Status: Never smoker alcohol intake: current HPI HPI Chief Complaint: Cough, recheck UTI Details: CEDRIC HARMAN, is a 22 F who presents to the office today for initial evaluation new onset cough and congestion 2 days. Patient also noted while here she would like to have urinalysis reassessed as she was previously treated for urinary tract infection and although she is asymptomatic now she would like to ensure that she no longer has any signs of UTI. She notes no complaints fever, chills, sweats, rash, chest pain/shortness of breath. She is non-smoker. She notes no other associated symptoms and no other alleviating or aggravating factors ROS Const Constitutional: No excessive sweating, abnormal sleep pattern, chills, fever(s), night sweats or body ache Eyes Eyes: No change in vision ENT ENT: Positive for nasal congestion; no abnormal hearing, ear pain, ear discharge, ear pressure, hearing loss, post nasal drip, sinus pressure or sore throat Resp Respiratory: Positive for cough Cough: Yes non-productive; no chest congestion Cardio Cardiology: No excessive sweating, chest pain at rest, chest pain with exertion, shortness of breath, dyspnea on exertion, irregular heart rhythm, generalized swelling or leg pain with exertion Gastro GI: No abdominal pain, change in stool character or change in bowel habits Genitourinary-Female: No difficulty urinating, urinary incontinence, burning urination, urinary frequency, painful urination or urinary urgency Musc Musculoskeletal: No joint pain, back pain or limited range of motion Skin Skin: No rash Neuro Neurology: No abnormal hearing, abnormal speech or abnormal movements Psych Psychiatric: No abnormal sleep pattern Endo Endocrine: No excessive sweating, change in body appearance, cold intolerance or heat intolerance Aller/Imm Allergy/Immunologic: No food intolerance Live/Lymp Hematologic/Lymphatic: No easy bruising Exam Const General: cooperative, healthy appearing, no acute distress, comfortable Nutritional Appearance: average body habitus, obese Orientation: alert, awake, oriented x3 [facility] Head: normal to inspection Ears: hearing grossly normal bilaterally, external ears normal, TM's normal bilaterally, EAC's normal Nose: external nose normal, nares normal, septum normal, nasal discharge clear Face and sinus: normal facial exam, sinuses nontender, face symmetric Mouth: tongue normal, lip normal, oropharynx normal, oral mucosae normal Teeth and gingiva: dentition normal, gingiva normal Throat: uvula midline, tonsils normal, posterior oropharynx normal Eyes General: appearance normal, both eyes and all related structures Neck Neck: normal visual inspection, full ROM, no lymphadenopathy, no meningeal signs, supple Neck mass: No Thyroid: thyroid normal Lymphatic: no lymphadenopathy noted Chest Chest palpation AND inspection: normal inspection of the chest Resp Effort AND Inspection: normal respiratory effort, able to speak in complete sentences, symmetric chest movement, no cough (No unsolicited cough appreciated during today's exam) Auscultation: Bilateral: Clear to Auscultation Cardio Palpation: normal PMI Rate: regular rate Rhythm: regular rhythm Heart Sounds: S1 normal, S2 normal, no gallops, no murmurs, no rubs Pulses: radial pulses present GI Inspection: normal to inspection Palpation: soft, nontender, no hepatosplenomegaly, no masses, not firm, no guarding General: No CVA tenderness, other (See urinalysis and urine hCG results) Skin General: no rashes or lesions noted Neuro General: alert, awake, oriented x3, gait normal Cognition: normal cognition Speech: speech normal Gait: normal gait Motor: muscle tone normal throughout Sensory Exam: no sensory deficits noted Extrem General: normal to inspection Psych Appearance: grossly normal Mental Status: mental status grossly normal Mood: congruent mood Affect: normal affect Speech and Movement: speech and movement normal Attitude: cooperative Thought Process: normal Thought Content: normal Judgment: judgment good Results BMS[facility] Office Urine Color Yellow Last Edit by Noemi Griffin on 10/19/17 16:26 Office Urine Clarity Clear Last Edit by Noemi Griffin on 10/19/17 16:26 [facility] Office , Urine Negative Last Edit by Noemi Griffin on 10/19/17 16:28 BMS[facility] Office Urine Color Yellow Last Edit by Noemi Griffin on 10/19/17 16:29 Office Urine Clarity Clear Last Edit by Noemi Griffin on 10/19/17 16:29 [facility] Office , Urine Negative Last Edit by Noemi Griffin on 10/19/17 16:29 Assessment AND Plan Problems 1. Bronchitis J40 2. URI (upper respiratory infection) J06.9 Plan Urinalysis dip and urine hCG at patient's request for reassessment. Benzonatate as prescribed today. Clear fluids, rest, Tylenol/Claritin [id number]-qgsbnnc as needed for symptomatic relief. Follow-up with PCP in 5-7 days should symptoms not improved, sooner should symptoms worsen or any other concerns develop. Patient states acknowledging understanding all of the above. This note was generated with SynapSenseation software. It may contain incorrect words, spelling, and punctuation that were not noted in checking the note before signing. Orders Orders: Medications New: Coding Level of Care Code Off vis,est,level 3 Diagnoses Bronchitis J40 URI (upper respiratory infection) J06.9 10/19/17 1636 <Electronically signed by Reggie KURTZ> Date Reggie KURTZ Cosigner Signature: Date (if applicable) CC: EMERGENCY DEPARTMENT Observed: 10/09/2017 Status: F Source: [place] SUMMARY 1:10 AM [facility] Medical Records Department [address] [place] [address] Emergency Department Summary 10/09/17 0039 MR#: [id number] Acct: [id number] Name: CEDRIC HARMAN Rep #: [id number] : 1995 22 From: Tae Campbell MD PCP: Austin Castro MD Status: REG ER - ER Visit Summary Date of Service: 10/09/17 Chief Complaint: Back pain History of Present Illness: The patient is a 22 F with urinary frequency that started yesterday, which is common when she gets urinary tract infections, as his lack of dysuria, hematuria, abdominal pain. However today, she developed occasional throbbing in her low back, bilaterally. No nausea, vomiting, fevers. Last normal menstrual period was about 3 weeks ago, she is on control pills and is regular because of that, she has had no vaginal symptoms recently. Physical Examination: Well-appearing in no acute distress. Normal vital signs. Afebrile. Abdomen soft nontender nondistended. No CVA tenderness bilaterally. Test Results: Urinalysis consistent with infection. Emergency Department Course and Treatment: Reassured that I do not think she has pyelonephritis or kidney stone here. We will treat her for simple cystitis that is likely radiating pain into her back/kidney area, encouraged to return for any worsening symptoms. She is comfortable with that plan. Treatment Plan: Bactrim 3 days Disposition: Discharge home Impression: Acute cystitis without hemorrhage This note was generated with [employer] dictation software. It may contain incorrect words, spelling, and punctuation that were not noted in review of the chart prior to signing ED Disposition - Plan for ED Patient: Disposition: Home or Assisted Living Chief Complaint: Flank Pain Instructions: ED UTI Cystitis Female Prescriptions: Sulfamethoxazole/Trimethoprim [Bactrim Ds Tablet] 1 ea PO BID #6 tab Referrals: Austin Castro MD [Primary Care Provider] - 3-5 Days if not improving What to do if you have Problems For any increased pain, shortness of breath, bleeding, nausea or vomiting, chest pain, or any unexpected problems, contact your Primary Care Provider. Call [facility] ([phone]) or report to the closest Emergency Room. Call 911 if necessary. 10/09/17 0110 <Electronically signed by Tae Campbell MD> Date Tae Campbell MD Cosigner Signature (If Indicated): Date CC: Austin Castro MD URINALYSIS, COMPLETE Collected: 10/09/2017 Status: F Source: [place] 12:40 AM [facility] REPOSITORY Order Comment: How was Urine Obtained? CLEAN CATCH TYPE CODE TESTS RESULT OUT OF RANGE REFERENCE UNITS LAB L400.3000 Yellow COLOR Normal Yellow LAB L400.3050 Clear Normal CLARITY Sl. Cloudy LAB L400.3200 Normal mg/dl Normal GLUCOSE, UR Normal LAB L400.3300 Negative mg/dL Normal BILIRUBIN URINE Negative LAB L400.3400 Negative mg/dl Normal KETONE UR Negative LAB L400.3465 1.002-1.030 Normal SP.GR. DIPSTX 1.020 LAB L400.3550 5.0 - 8.0 pH UR Normal 6.0 LAB L400.3600 Negative mg/dl High PROT 30 DIPSTX LAB L400.3700 Normal mg/dl Normal UROBILI Normal LAB L400.3750 Negative Normal NITRITE UR Negative LAB L400.3780 Negative /ul Normal OCCULT BLOOD-UR Negative LAB L400.3800 Negative /ul High LEUK ESTERASE 500 LAB L400.4050 0-5 /hpf WBC Normal 5-10 SEEN LAB L400.4100 0-5 /hpf 0 Normal RBC-UA SEEN LAB L400.4150 5-10 /hpf SQUAM Normal EPI 5-10 SEEN LAB L400.4300 None Seen /hpf 1+ Normal BACTERIA LAB L400.4350 <or=2+ /hpf 0 Normal MUCUS, URINE SEEN LAB L400.4850 None Seen /hpf OTHER 1+ Normal [place] Performed By: #### L400.0001 #### [facility] [address] [place], [address] CBC-COMPLETE BLOOD CNT Collected: 09/19/2017 Status: F Source: [place] NO DIFF 1:47 PM [facility] REPOSITORY Order Comment: Order Date: 09/19/17 Order Info: 32686-1 - CBC TYPE CODE TESTS RESULT OUT OF RANGE REFERENCE UNITS LAB L100.1000 4.4-11.0 K/mm3 Normal WBC 8.3 LAB L100.1200 4.2-5.4 M/mm3 Normal RBC 4.69 LAB L100.1300 12.0-15.0 g/dl Normal HGB 12.3 LAB L100.1400 37-47 % Normal HCT 37.8 LAB L100.1500 81-99 fL Low MCV 80.6 LAB L100.1600 27.0-32.0 pg Low MCH 26.2 LAB L100.1700 32-36 g/gl Normal MCHC 32.5 LAB L100.1810 11.6-14.6 % High RDW CV 15.6 LAB L100.1820 35.1-43.9 fl High RDW SD 45.5 LAB L100.1900 150-450 K/mm3 Normal PLT 238 LAB L100.2000 6.2-12.0 fl Normal MPV 11.6 Performed By: #### L100.0500, L503.3965, L503.6150, L503.6250 #### [facility] [address] [place], [place], [address] IRON BINDING Collected: 09/19/2017 Status: F Source: [place] PEREZ,TOTAL 1:47 PM [facility] REPOSITORY Order Comment: Order Date: 09/19/17 Order Info: 2500-7 - TIBC Order Info: 2498-4 - FE Order Info: 2276-4 - WOLF TYPE CODE TESTS RESULT OUT OF RANGE REFERENCE UNITS LAB L503.6075 250-450 ug/dL Normal TIBC 444 Performed By: #### L100.0500, L503.6075, L503.6150, L503.6550 #### [facility] [address] [place], [address] IRON Collected: 09/19/2017 Status: F Source: [place] 1:47 PM [facility] REPOSITORY Order Comment: Order Date: 09/19/17 Order Info: 2500-7 - TIBC Order Info: 2498-4 - FE Order Info: 2276-4 - WOLF TYPE CODE TESTS RESULT OUT OF RANGE REFERENCE UNITS LAB L503.6150 50-170 ug/dL Normal IRON 94 Performed By: #### L100.0500, L503.6075, L503.6150, L503.6550 #### [facility] [place], [address] FERRITIN Collected: 09/19/2017 Status: F Source: [place] 1:47 PM [facility] REPOSITORY Order Comment: Order Date: 09/19/17 Order Info: 2500-7 - TIBC Order Info: 2498-4 - FE Order Info: 2276-4 - WOLF TYPE CODE TESTS RESULT OUT OF REFERENCE UNITS RANGE LAB L503.6550 8-252 ng/mL Low FERRITIN 7 Performed By: #### L100.0500, L503.6075, L503.6150, L503.6550 #### [facility] [address] [place], [place], [address] EMERGENCY DEPARTMENT Observed: 09/17/2017 Status: F Source: [place] SUMMARY 6:45 AM [facility] REPOSITORY [facility] Medical Records Department [address] [facility] [place] [address] Emergency Department Summary 09/16/17 2350 MR#: [id number] Acct: [id number] Name: CEDRIC HARMAN Rep #: [id number] : 1995 22 From: Wil Farr MD PCP: Austin Castro MD Status: DEP ER - ER Visit Summary Date of Service: 09/16/17 Chief Complaint: [] Left-sided rib and hip pain History of Present Illness: The patient is a 22 F patient tripped and slid down the steps 2 days ago and having pain in her left lateral ribs and hip. She has been using intermittent ibuprofen with moderate relief of symptoms. Comes in for further evaluation. 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 Denies any other complaints Physical Examination: [] Vital signs reviewed General: Well-nourished well-developed Head: Normocephalic atraumatic Eyes: Pupils equal round and reactive to light extraocular movements intact ENT: TMs clear no hemotympanum no trauma Neck: Nontender full range of motion Cardiovascular: Regular rate rhythm no murmurs normal S1-S2 Respiratory: No distress clear to auscultation bilaterally chest nontender Abdomen: Soft nontender nondistended normal bowel sounds no masses Back: Mild tenderness left lateral iliac crest and left lateral ribs without swelling deformity. But no bony step-off or crepitus. Extremities: Nontender active range of motion 4 extremities no trauma Skin: Normal color no trauma Neuro alert oriented cranial nerves II through XII intact normal strength sensation reflexes Test Results: [] Emergency Department Course and Treatment: [] I believe the patient just has contusions. Discussed x-rays but I do not feel they are necessary. Given a shot of Toradol. She will continue symptomatic management was given lifting restrictions Treatment Plan: [] Disposition: [] Impression: [] Left-sided rib pain after fall Left-sided hip pain after fall This note was generated with SynapSenseation software. It may contain incorrect words, spelling, and punctuation that were not noted in review of the chart prior to signing ED Disposition - Plan for ED Patient: Chief Complaint: Fall Referrals: Austin Castro MD [Primary Care Provider] - What to do if you have Problems For any increased pain, shortness of breath, bleeding, nausea or vomiting, chest pain, or any unexpected problems, contact your Primary Care Provider. Call [facility] ([phone]) or report to the closest Emergency Room. Call 911 if necessary. 09/17/1745 <Electronically signed by Wil Farr MD> Date Wil Farr MD Cosigner Signature (If Indicated): Date CC: Austin Castro MD DISCHARGE INSTRUCTION Observed: 09/17/2017 Status: F Source: [place] 6:45 AM [facility] REPOSITORY [facility] Medical Records Department [address] [place] [address] Discharge Instruction 09/16/17 2351 MR#: [id number] Acct: [id number] Name: CEDRIC HARMAN Rep #: [id number] : 1995 22 From: Wil Farr MD PCP: Austin Castro MD Status: DEP ER ED Disposition - Plan for ED Patient: Disposition: Home or Assisted Living Chief Complaint: Fall Instructions: Contusions (Bruises) Referrals: Austin Castro MD [Primary Care Provider] - What to do if you have Problems For any increased pain, shortness of breath, bleeding, nausea or vomiting, chest pain, or any unexpected problems, contact your Primary Care Provider. Call [facility] ([phone]) or report to the closest Emergency Room. Call 911 if necessary. 09/17/1745 <Electronically signed by Wil Farr MD> Date Wil Farr MD Cosigner Signature (If Indicated): Date CC: Austin Castro MD ALLERGIES ALLERGIES DATE TYPE / CODE NAME / CODE REACTION SEVERITY SOURCE 08/11/2018 Drug No Known Unknown [facility] Allergy/416 Allergies/S51232 Hospital 733272(SNOM 0388(RXNORM) Repository ED CT) Drug NO KNOWN [facility] Class/85856 ALLERGIES [place] 1003(SNOMED Repository CT) ENCOUNTERS ENCOUNTERS ADMIT/DISCHARGE ACCOUNT ADMITTING ENCOUNTER LOCATION SOURCE NUMBER CLASS 08/11/2018 [id number] Ambulatory [facility] ing:LABSPEC Repository 08/11/2018/08/11/19 [id number] Ambulatory BMSBuilding:B [place] 19 [facility] Repository 08/03/2018 [id number] Ambulatory [facility] ing:MFPLAB Repository 07/27/2018/07/27/19 [id number] Ambulatory [place] 19 [facility] [place] Repository 07/18/2018/07/19/19 [id number] Ambulatory [place] 19 [facility] [place] Repository 06/19/2018 [id number] Ambulatory [facility] ing:EMPH Repository 05/25/2018/05/26/20 [id number] Ambulatory [place] 18 [facility] [place] Repository 04/05/2018/04/06/20 [id number] Ambulatory [place] 18 [facility] [place] Repository 04/03/2018/04/04/20 [id number] Emergency [address] ing:ED Repository 04/02/2018/08/10/19 [id number] Ambulatory [place] 19 [facility] [place] Repository 03/27/2018/03/27/20 [id number] Ambulatory BMSBuilding:B [place] 18 [facility] Repository 03/25/2018/03/25/20 [id number] Emergency [address] [facility] ing:ED Repository 01/30/2018 [id number] Ambulatory [facility] ing:LABSPEC Repository 01/30/2018/01/31/20 [id number] Emergency [address] ing:ED Repository 01/30/2018/01/31/20 [id number] Ambulatory BMSBuilding:B [place] 18 MS.[facility] Hospital Repository 01/30/2018 [id number] Ambulatory BMSBuilding:[place] Repository 01/14/2018/01/15/20 [id number] Emergency [address] ing:ED Repository 11/29/2017/11/30/19 [id number] Ambulatory BMSBuilding:B [place] 18 [facility] Repository 11/20/2017/11/21/19 [id number] Emergency [address] ing:ED Repository 11/05/2017/11/06/19 [id number] Emergency [address] ing:ED Repository 10/28/2017/10/29/19 [id number] Emergency [address] ing:ED Repository 10/23/2017/10/26/19 [id number] Ambulatory [address] Repository 10/19/2017/10/20/19 [id number] Ambulatory BMSBuilding:B [place] 18 [facility] Repository 10/09/2017/10/10/19 [id number] Emergency [address] ing:ED Repository 09/19/2017 [id number] Ambulatory [facility] ing:MFPLAB Repository 09/16/2017/09/18/19 [id number] Emergency [address] ing:ED Repository PAYERS PAYERS ENCOUNTER GUARANTOR PAYER SUBSCRIBER SOURCE 08/11/2018 CEDRIC Mejia Primary CEDRIC HARMAN825 Insurance:DAYANARAJustice CIFUENTES: Formerly [place] [facility] [place]: [id number] [id number] Repository [address]Dcx: [phone]) Date:2018-08-11 [phone] () 76[address]ATTN: [place] [address]JD: 08/11/2018 Secondary NOT GIVENUNK [place] Insurance:SELF PAY [facility] Number: Effective Repository Date:2018-08-11 08/11/2018 CEDRIC R Primary CEDRIC R [place] [id number] Insurance:CARESOURCEPo HOWELLDOB: Community GASCHE licy Number: [id number] [id number] Repository [address]Dpf: ([phone]) Date:2018-08-11[phone] (HP) 0900ATTN: [place] [address]CM: 08/11/2018 Secondary NOT GIVENUNK [place] Insurance:SELF PAY [facility] Number: Effective Repository Date:2018-08-11 08/03/2018 CEDRIC R Primary CEDRIC R [place] [id number] Insurance:CARESOURCEPo HOWELLDOB: Community GASCHE licy Number: [id number] [id number] Repository [address]Czs: ([phone]) Date:2018-08-03[phone] (HP) 2861ATTN: [place] [address]VW: 08/03/2018 Secondary NOT GIVENUNK [place] Insurance:SELF PAY [facility] Number: Effective Repository Date:2018-08-03 06/19/2018 CEDRIC R Primary Insurance:SELF NOT GIVENUNK [place] [id number] PAY [facility] Number: Effective [place] Date:2018-06-03 Repository [address]Mdh: (HP) 04/03/2018 CEDRIC R Primary MARGARET [place] [id number] Insurance:HUMANA WILLIAMSDOB: Community GASCHE COMMERCIALPolicy [id number] Number: Repository [address]Agt: [phone]) [id number] [phone] (HP) Date:8934-21-88ZD [address] [place] [address]CS: 04/03/2018 Secondary CEDRIC R [place] Insurance:CARESOURCEPo HOWELLDOB: Community licy Number: [id number] [id number] Repository Date:2018-04-03 [address]ATTN: [place] [place] [address]OS: 04/03/2018 Tertiary NOT GIVENUNK [place] Insurance:SELF PAY [facility] Number: Effective Repository Date:2018-04-03 03/27/2018 CEDRIC R Primary Insurance:OB CEDRIC R Christel [id number] [facility] HOWELLDOB: Community GASCHE ADMINPolicy Number: [id number] [id number] Repository [address]Pnx: ([phone]) Date: [phone] () [place], [place] [address]EB: 03/27/2018 Secondary MARGARET Christel Insurance:HUMANA WILLIAMSDOB: [facility] [id number] [facility] Number: Repository [id number] Date:6514-09-07[address] [place] [address]QV: 03/27/2018 Tertiary NOT GIVENUNK [place] Insurance:SELF PAY [facility] Number: Effective Repository Date:2018-03-27 03/25/2018 CEDRIC R Primary Insurance:OB CEDRIC R [place] [id number] RANDOLPH MEDICAL HOWELLDOB: Community GASCHE ADMINPolicy Number: [id number] [place] [id number] Repository [address]Ixz: (119) Date: [phone] () [place], [place] [address]LM: 03/25/2018 Secondary MARGARET Christel Insurance:HUMANA WILLIAMSDOB: [facility] COMMERCIALPolicy [id number] Hospital Number: Repository [id number] Date:4831-27-55BG [address] [address]RH: 03/25/2018 Tertiary NOT GIVENUNK [place] Insurance:SELF PAY [facility] Number: Effective Repository Date:2018-03-25 01/30/2018 CEDRIC R Primary MARGARET [place] [id number] Insurance:[facility]: [facility] [id number] Number: Repository [phone]: 330 [id number] [phone] (HP) Date:4365-28-85AU [address] [address]NI: 01/30/2018 Secondary CEDRIC R [place] Insurance:CARESOURCEPo HOWELLDOB: Community licy Number: [id number] [facility] [id number] Repository Date:2018-01-30[address]ATTN: [place] [address]MO: 01/30/2018 Tertiary NOT GIVENUNK [place] Insurance:SELF PAY [facility] Number: Effective Repository Date:2018-01-30 01/30/2018 CEDRIC R Primary MARGARET WILLIAMSRODNEY Christel [id number] Insurance:[place] Number: Repository [id number]: 330 [id number] [phone] () Date:[id number] [address]MS: 01/30/2018 Secondary CEDRIC R Christel Insurance:CARESOURCEPo HOWELLDOB: Community licy Number: [id number] [id number] Repository Date:2018-01-30[address]ATTN: [place] [address]NN: 01/30/2018 Tertiary NOT GIVENUNK [place] Insurance:SELF PAY [facility] Number: Effective Repository Date:2018-01-30 01/30/2018 CEDRIC R Primary MARGARET [place] [id number] Insurance:HUMANA WILLIAMSDOB: Community GASCHE COMMERCIALPolicy [id number] City, [place] Number: Repository [address]Zfp: 330 [id number] [phone] () Date:4864-56-75[address] [place] [address]WC: 01/30/2018 Secondary CEDRIC R [place] Insurance:CARESOURCEPo HOWELLDOB: Community licy Number: [id number] Hospital [id number] Repository Date:2018-01-30[address]ATTN: [place] [address]JH: 01/30/2018 Tertiary NOT GIVENUNK Christel Insurance:SELF PAY [facility] Number: Effective Repository Date:2018-01-30 01/30/2018 CEDRIC R Primary CEDRIC R [place] [id number] Insurance:CARESOURCEPo HOWELLDOB: Community GASCHE licy Number: [id number] City, [place] [id number] Repository [address]Qrd: 330) Date:2018-01-30[phone] () [address]ATTN: [place] [address]JW: 01/30/2018 Secondary MARGARET WILLIAMSRODNEY Christel Insurance:[facility] Number: Repository [id number] Date:2709-46-68UO [address] [address]EX: 01/30/2018 Tertiary NOT GIVENUNK [place] Insurance:SELF PAY [facility] Number: Effective Repository Date:2018-01-30 01/14/2018 CEDRIC R Primary MARGARET KAREY Christel [id number] Insurance:[place] Number: Repository [id number]: 330 [id number] [phone] () Date:6332-72-42MX [address] [address]EJ: 01/14/2018 Secondary CEDRIC R [place] Insurance:CARESOURCEPo HOWELLDOB: Community licy Number: [id number] Hospital [id number] Repository Date:2018-01-14[address]ATTN: [place] [address]ZO: 01/14/2018 Tertiary NOT GIVENUNK Christel Insurance:SELF PAY [facility] Number: Effective Repository Date:2018-01-14 11/29/2017 CEDRIC R Primary MARGARET Christel [id number] Insurance:HUMANA WILLIAMSDOB: [facility] [id number] Number: Repository [address]Dks: 330 [id number] [phone] (HP) Date:9709-82-70DQ [address] [address]EW: 11/29/2017 Secondary CEDRIC R Christel Insurance:CARESOURCEPo HOWELLDOB: Community licy Number: [id number] Hospital [id number] Repository Date:2017-11-29[address]ATTN: [place] [address]RR: 11/29/2017 Tertiary NOT GIVENUNK [place] Insurance:SELF PAY [facility] Number: Effective Repository Date:2017-11-29 11/20/2017 CEDRIC R Primary MARGARET Christel [id number] Insurance:HUMANA WILLIAMSDOB: Community [facility] COMMERCIALPolic [id number] Number: Repository [id number]: [phone] [id number] [phone] (HP) Date:1764-21-69PE [address] [address]OY: 11/20/2017 Secondary CEDRIC R [place] Insurance:CARESOURCEPo HOWELLDOB: Community licy Number: [id number] Hospital [id number] Repository Date:2017-11-20[address]ATTN: [place] [address]WK: 11/20/2017 Tertiary NOT GIVENUNK [place] Insurance:SELF PAY [facility] Number: Effective Repository Date:2017-11-20 11/05/2017 CEDRIC Mejia Primary MARGARET [place] [id number] Insurance:[place] Number: Repository [id number]: 330 [id number] [phone] (HP) Date:7998-35-29YA [address] [place] [address]YQ: 11/05/2017 Secondary CEDRIC R [place] Insurance:CARESOURCEPo HOWELLDOB: Community licy Number: [id number] Hospital [id number] Repository Date:2017-11-05[address]ATTN: [place] [address]CY: 11/05/2017 Tertiary NOT GIVENUNK Christel Insurance:SELF PAY [facility] Number: Effective Repository Date:2017-11-05 10/28/2017 CEDRIC Mejia Primary MARGARET [place] [id number] Insurance:[place] Number: Repository [id number]: 330 [id number] [phone] (HP) Date:6708-54-55SL [address] [place] [address]EH: 10/28/2017 Secondary CEDRIC R Christel Insurance:CARESOURCEPo HOWELLDOB: Community licy Number: [id number] Hospital [id number] Repository Date:2017-10-28[address]ATTN: [place] [address]KM: 10/28/2017 Tertiary NOT GIVENUNK [place] Insurance:SELF PAY [facility] Number: Effective Repository Date:2017-10-28 10/19/2017 CEDRIC R Primary MARGARETHarry EDEN [place] [id number] Insurance:[place] Number: Repository [id number]: [id number] [phone] Date:2810-29-63DU [address] (HP) [address] [place] [address]GK: 10/19/2017 Secondary CEDRIC R Christ[place] Insurance:CARESOURCEPo HOWELLDOB: Community licy Number: [id number] Hospital [id number] Repository Date:2017-10-19[address]ATTN: [place] [address]RS: 10/19/2017 Tertiary NOT GIVENUNK Christel Insurance:SELF PAY [facility] Number: Effective Repository Date:2017-10-19 10/09/2017 CEDRIC R Primary MARGARET DEEN Christel [id number] Insurance:[place] Number: Repository [id number]: [id number] [phone] Date:4751-04-40YC [address] (HP) [address] [place] [address]TP: 10/09/2017 Secondary CEDRIC R [place] Insurance:CARESOURCEPo HOWELLDOB: [facility] licy Number: [id number] Hospital [id number] Repository Date:2017-10-09[address]ATTN: [place] [address]DT: 10/09/2017 Tertiary NOT GIVENUNK Christel Insurance:SELF PAY [facility] Number: Effective Repository Date:2017-10-09 09/19/2017 CEDRIC R Primary MARGARET Christel [id number] Insurance:[facility] JANENTB: [facility] [id number] Number: Effective Repository [id number]: Date:6710-93-09XJ [phone] [place] [address] 0-3 () [address]UX: 09/19/2017 Secondary CEDRIC R Christel Insurance:CARESOURCEPo HOWELLDOB: Community licy Number: [id number] Hospital [id number] Repository Date:2017-09-19[address]ATTN: [place] [address]LZ: 09/19/2017 Tertiary NOT GIVENUNK [place] Insurance:SELF PAY [facility] Number: Effective Repository Date:2017-09-19 09/16/2017 CEDRIC R Primary MARGARET [place] [id number] Insurance:HUMANA WILLIAMSDOB: [facility] COMM[facility]CIALPolburgess [facility] center [id number] Number: Effective Repository [phone]: (330) Date:2702-04-80QB [phone] () [address] [place] [address]BX: 09/16/2017 Secondary CEDRIC R [place] Insurance:CARESOURCEPo HOWELLDOB: Community licy Number: [id number] Hospital [id number] Repository Date:2017-09-16[address]ATTN: [place] [address]KV: 09/16/2017 Tertiary NOT GIVENUNK [place] Insurance:SELF PAY [facility] Number: Effective Repository Date:2017-09-16
== END ==
PROVIDERS: Family Provider Family Medicine; PCP Family Medicine; Visit Provider Family Medicine
DX: D64.9 Anemia, unspecified (principal)
CPT/HCPCS: 36415; 82728; 83540; 83550; 85025

== ENCOUNTER → 2018-08-11 18:28 | Outpatient (CLI) | payer MEDICAID, SELFPAY ==
[2018-08-11 17:56] VITALS: BMI 37.4
== END ==
PROVIDERS: Family Provider Family Medicine; PCP Family Medicine; Referring Provider Physician Assistant Surgical; Visit Provider Physician Assistant Surgical
DX: R35.0 Frequency of micturition (principal)
CPT/HCPCS: 87086; 87088

== ENCOUNTER 2018-09-03 21:16 | Emergency (ER) | payer OTHER, MEDICAID, SELFPAY ==
[2018-08-11 17:56] VITALS: BMI 37.4
[2018-09-03 21:16] VITALS: BP 137/85; PULSE 91; RESP 26; TEMP 36.9; O2SAT 96; BMI 38.9
--- NOTE | 2018-09-03 21:34 | EKG12_ITS ---
Test Reason : ANXIETY Blood Pressure : / mmHG Vent. Rate : 086 BPM Atrial Rate : 086 BPM P-R Int : 154 ms QRS Dur : 092 ms QT Int : 374 ms P-R-T Axes : 037 -01 006 degrees QTc Int : 447 ms Normal sinus rhythm with sinus arrhythmia Normal ECG Confirmed by BERLIN FORD, ORQUIDEA ([id number]), social media editor RASHIDA SANTOS ([id number]) on 09/05/2018 9:05:03 AM Referred By: Jodee Torres Confirmed By:ORQUIDEA SLADE MD
--- NOTE | 2018-09-03 21:36 | ED.VISSUMM ---
- ER Visit Summary Date of Service: 09/03/18 Chief Complaint: Anxiety History of Present Illness: The patient is a 23 F who presents with anxiety that became worse this morning. Patient states she woke up and was feeling anxious. Patient states her anxiety has been constant throughout the day. Patient states she feels like her heart is racing at times. Patient also feels like she is having some reflux. Patient states she took Vistaril at home with no improvement of her anxiety. Patient states she also took omeprazole today. Patient also states she took an [id number] magnesium tablet. Patient is fearful that she may from her palpitations. Patient denies any suicidal homicidal ideations. Patient denies any visual or auditory hallucinations. Physical Examination: Vital signs are stable. Patient is afebrile. Patient is anxious on examination but in no acute distress. Cranial nerves II through XII are intact. There are no focal motor or sensory deficits noted. Patient is not anxious mood and nervous affect. Patient is tearful on exam. Patient denies any suicidal or homicidal ideations. Heart was regular rate and rhythm. Lungs are clear and equal bilaterally. Abdomen is soft and nontender. The remaining physical exam is within normal limits. Test Results: EKG showed normal sinus rhythm with sinus arrhythmia with a rate of 86. There are no acute ST or T wave changes. This was unchanged compared to previous EKG dated 11/20/2017. PA and lateral chest x-ray was obtained. There is no acute cardiopulmonary process. Emergency Department Course and Treatment: Patient was given a dose of IM Ativan here. Patient felt better on reevaluation. Patient was secured. Patient was instructed to follow-up with her primary care physician in 5-7 days. Patient understood and was agreeable with the plan. All questions were answered. Disposition: Discharge home Impression: 1. Acute anxiety This note was generated with [employer] dictation software. It may contain incorrect words, spelling, and punctuation that were not noted in review of the chart prior to signing ED Disposition - Plan for ED Patient: Disposition: Home or Assisted Living Diagnosis: Acute anxiety Instructions: ED Panic Attack Referrals: Austin Castro MD [Primary Care Provider] -
--- NOTE | 2018-09-03 21:42 | ED.DCSUM_ITS ---
- ER Visit Summary Date of Service: 09/03/18 Chief Complaint: Anxiety History of Present Illness: The patient is a 23 F who presents with anxiety that became worse this morning. Patient states she woke up and was feeling anxious. Patient states her anxiety has been constant throughout the day. Patient states she feels like her heart is racing at times. Patient also feels like she is having some reflux. Patient states she took Vistaril at home with no improvement of her anxiety. Patient states she also took omeprazole today. Patient also states she took an [id number] magnesium tablet. Patient is fearful that she may from her palpitations. Patient denies any suicidal homicidal ideations. Patient denies any visual or auditory hallucinations. Physical Examination: Vital signs are stable. Patient is afebrile. Patient is anxious on examination but in no acute distress. Cranial nerves II through XII are intact. There are no focal motor or sensory deficits noted. Patient is not anxious mood and nervous affect. Patient is tearful on exam. Patient denies any suicidal or homicidal ideations. Heart was regular rate and rhythm. Lungs are clear and equal bilaterally. Abdomen is soft and nontender. The remaining physical exam is within normal limits. Test Results: EKG showed normal sinus rhythm with sinus arrhythmia with a rate of 86. There are no acute ST or T wave changes. This was unchanged compared to previous EKG dated 11/20/2017. PA and lateral chest x-ray was obtained. There is no acute cardiopulmonary process. Emergency Department Course and Treatment: Patient was given a dose of IM Ativan here. Patient felt better on reevaluation. Patient was secured. Patient was instructed to follow-up with her primary care physician in 5-7 days. Patient understood and was agreeable with the plan. All questions were answered. Disposition: Discharge home Impression: 1. Acute anxiety This note was generated with [employer] dictation software. It may contain incorrect words, spelling, and punctuation that were not noted in review of the chart prior to signing ED Disposition - Plan for ED Patient: Disposition: Home or Assisted Living Diagnosis: Acute anxiety Instructions: ED Panic Attack Referrals: Austin Castro MD [Primary Care Provider] -
[2018-09-03] MEDS: LORazepam 2 MG/ML Syringe 1 MG IM (21:52)
--- NOTE | 2018-09-03 22:10 | RAD_ITS ---
STUDY: X-RAY CHEST REASON FOR EXAM: Female, 23 years old. Cough, anxiety. TECHNIQUE: PA and lateral COMPARISON: 04/03/2018. FINDINGS: The lungs are clear and expanded. There is no demonstrated pleural abnormality. Normal size heart. Normal mediastinum and eduar. Normal visualized pulmonary arteries. Normal visualized aortic arch and descending thoracic aorta. Normal visualized thoracic spine. Normal visualized ribs, clavicles, and shoulders. There is no demonstrated abnormality of the visualized soft tissue structures of the upper abdomen. RAD/Chest PA and Lateral IMPRESSION: Normal x-ray examination of the chest. Electronically Signed: Shakila Gomez MD at 22:49 EST Tel , Service support ,
[2018-09-03 22:53] VITALS: RESP 18
== END 2018-09-03 22:54 | disposition home or self-care (01) ==
LOC: ED 21:56
PROVIDERS: Emergency Provider Emergency Medicine; Family Provider Family Medicine; PCP Family Medicine
DX: F41.9 Anxiety disorder, unspecified (principal); K21.9 Gastro-esophageal reflux disease without esophagitis; E66.9 Obesity, unspecified; Z79.899 Other long term (current) drug therapy
CPT/HCPCS: 71046; 93005; 96372; 99282

== ENCOUNTER → 2018-09-04 14:05 | Outpatient (CLI) | payer OTHER, MEDICAID, SELFPAY ==
[2018-09-03 21:16] VITALS: BMI 38.9
== END ==
PROVIDERS: Family Provider Family Medicine; PCP Family Medicine; Referring Provider Family Medicine; Visit Provider Family Medicine
DX: N39.0 Urinary tract infection, site not specified (principal)
CPT/HCPCS: 87086; 87088

== ENCOUNTER 2018-11-02 10:45 | Emergency (ER) | payer OTHER, MEDICAID, SELFPAY ==
[2018-11-02 10:46] VITALS: BP 129/66; PULSE 81; RESP 16; TEMP 36.6; O2SAT 99; BMI 38.0
--- NOTE | 2018-11-02 11:01 | ED.VISSUMM ---
- ER Visit Summary Date of Service: 11/02/18 Chief Complaint: Back pain History of Present Illness: The patient is a 23 F who presents with back pain that began today while at work. 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 Patient states she felt something pull in her back. Patient denies any radiation of the pain. Patient denies any paresthesias or weakness. Patient denies any bowel or bladder changes. Physical Examination: Vital signs are stable. Patient is afebrile. Patient is in no acute distress. Musculoskeletal exam reveals tenderness and spasm of the lumbar spine and paraspinal muscles. There is no bony crepitance or step-off. There is no edema or ecchymosis. Range of motion was slightly limited in all motions of the lumbar spine secondary to pain. Straight leg raises were negative bilaterally. Deep tendon reflexes were 2+/4 bilaterally. There are no sensory deficits noted. Strength is 5/5 bilaterally. Emergency Department Course and Treatment: Patient was given a dose of Tylenol here. Patient was instructed to take Tylenol or ibuprofen as needed for pain. Patient was instructed to use ice to the area. Patient was given a note for work to limit her lifting and bending. Patient was instructed to follow-up with [facility] in 5-7 days. Patient understood and was agreeable with the plan. All questions were answered. Disposition: Discharge home Impression: Lumbar strain This note was generated with [employer] dictation software. It may contain incorrect words, spelling, and punctuation that were not noted in review of the chart prior to signing ED Disposition - Plan for ED Patient: Disposition: Home or Assisted Living Diagnosis: Lumbar strain Instructions: ED Sprain Strain Lumbar Referrals: Austin Castro MD [Primary Care Provider] - 5-7 Days [facility] [GROUP OF PHYSICIANS] - 3-5 Days
--- NOTE | 2018-11-02 11:08 | ED.DCSUM_ITS ---
- ER Visit Summary Date of Service: 11/02/18 Chief Complaint: Back pain History of Present Illness: The patient is a 23 F who presents with back pain that began today while at work. 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 Patient states she felt something pull in her back. Patient denies any radiation of the pain. Patient denies any paresthesias or weakness. Patient denies any bowel or bladder changes. Physical Examination: Vital signs are stable. Patient is afebrile. Patient is in no acute distress. Musculoskeletal exam reveals tenderness and spasm of the lumbar spine and paraspinal muscles. There is no bony crepitance or step-off. There is no edema or ecchymosis. Range of motion was slightly limited in all motions of the lumbar spine secondary to pain. Straight leg raises were negative bilaterally. Deep tendon reflexes were 2+/4 bilaterally. There are no sensory deficits noted. Strength is 5/5 bilaterally. Emergency Department Course and Treatment: Patient was given a dose of Tylenol here. Patient was instructed to take Tylenol or ibuprofen as needed for pain. Patient was instructed to use ice to the area. Patient was given a note for work to limit her lifting and bending. Patient was instructed to follow-up with on [facility] of [facility] in 5-7 days. Patient understood and was agreeable with the plan. All questions were answered. Disposition: Discharge home Impression: Lumbar strain This note was generated with [employer] dictation software. It may contain incorrect words, spelling, and punctuation that were not noted in review of the chart prior to signing ED Disposition - Plan for ED Patient: Disposition: Home or Assisted Living Diagnosis: Lumbar strain Instructions: ED Sprain Strain Lumbar Referrals: Austin Castro MD [Primary Care Provider] - 5-7 Days [facility] [GROUP OF PHYSICIANS] - 3-5 Days
[2018-11-02] MEDS: Acetaminophen 325 MG Tablet 1000 MG PO (11:34)
== END 2018-11-02 11:43 | disposition home or self-care (01) ==
LOC: ED 11:27
PROVIDERS: Emergency Provider Emergency Medicine; Family Provider Family Medicine; PCP Family Medicine
DX: S39.012A Strain of muscle, fascia and tendon of lower back, initial encounter (principal); X50.0XXA Overexertion from strenuous movement or load, initial encounter; Y93.89 Activity, other specified; Y92.89 Other specified places as the place of occurrence of the external cause; Y99.0 Civilian activity done for income or pay
CPT/HCPCS: 99283

== ENCOUNTER 2018-12-05 09:46 | Emergency (ER) | payer OTHER, MEDICAID, SELFPAY ==
[2018-11-14 07:24] VITALS: BMI 38.0
[2018-12-05 09:47] VITALS: BP 126/77; PULSE 73; RESP 18; TEMP 36.6; O2SAT 99; BMI 38.9
[2018-12-05] MEDS: Mag Hydrox/Al Hydrox/Simeth 30 ML UDC PO (10:24)
[2018-12-05 10:38] LABS: Internal QC Validated? YES +Cl - CLEAR BKGD; Pregnancy, Urine Negative Negative
--- NOTE | 2018-12-05 11:01 | ED.DCSUM_ITS ---
- ER Visit Summary Date of Service: 12/05/18 Chief Complaint: Abdominal pain History of Present Illness: The patient is a [address] Florez. She reports that she has epigastric abdominal pain that began approximately an hour and 15 minutes ago. She describes some burning pain with radiation up into her chest. 7 out of 10 at worst and 5-10 currently. Is worsened by nothing. Is been relieved by burping and having a bowel movement. She denies any associated nausea, vomiting, or diarrhea. Last bowel was today. She said no matter hematochezia. No dysuria or frequency. Her last menstrual. Was approximate 1 month ago. States that she has had this previously with reflux. Physical Examination: Vitals: Stable. Afebrile. General: Well-nourished and well-developed. Head: Normocephalic atraumatic. Neck: Supple, no lymphadenopathy. No JVD. Nontender. Cardiovascular: Regular rate and rhythm. No murmurs. Respiratory: No respiratory distress. Clear to auscultation bilaterally. Abdominal: Soft, nontender, nondistended, normal bowel sounds. No guarding, rebound, or peritoneal signs. Back: Nontender. Extremities: Nontender, no edema. Skin: Normal color, no rash. Neurologic: Alert and oriented ?3. Cranial nerves II through XII are intact. Normal strength and sensation. Psych: Normal affect. Test Results: test was negative. Emergency Department Course and Treatment: Patient was given a GI cocktail with complete resolution of her symptoms. She is resting comfortably. Treatment Plan: Patient be discharged instructions continue her Prilosec. Follow-up with her primary care physician in 1 to 2 days if not improving. Return to the emergency department for any worsening symptoms. Disposition: To home in improved and stable condition. Impression: 1. Abdominal pain, resolved. This note was generated with [employer] dictation software. It may contain incorrect words, spelling, and punctuation that were not noted in review of the chart prior to signing ED Disposition - Plan for ED Patient: Disposition: Home or Assisted Living Instructions: ED GERD Referrals: Austin Castro MD [Primary Care Provider] - 1-2 Days if not improving
== END 2018-12-05 11:06 | disposition home or self-care (01) ==
LOC: ED 10:33
PROVIDERS: Emergency Provider Emergency Medicine; Family Provider Family Medicine; PCP Family Medicine
DX: R10.13 Epigastric pain (principal); K21.9 Gastro-esophageal reflux disease without esophagitis
CPT/HCPCS: 81025; 99283

== ENCOUNTER → 2019-01-25 | Outpatient (CLI) | payer MEDICAID, SELFPAY ==
[2019-01-25 12:52] VITALS: BMI 38.9
== END | disposition home or self-care (01) ==
LOC: LABSPEC 14:27
PROVIDERS: Family Provider Family Medicine; PCP Family Medicine; Referring Provider Physician Assistant; Visit Provider Physician Assistant
DX: J02.9 Acute pharyngitis, unspecified (principal)
CPT/HCPCS: 87081

== ENCOUNTER 2019-03-18 06:29 | Emergency (ER) | payer SELFPAY ==
[2019-01-25 12:52] VITALS: BMI 38.9
[2019-03-18 06:30] VITALS: BP 136/81; PULSE 81; RESP 20; TEMP 36.8; O2SAT 97; BMI 44.8
--- NOTE | 2019-03-18 06:58 | ED.VIS.GEN ---
History of Present Illness Chief Complaint: Complaint Informant: Patient Onset: Yesterday Context: Gradual Onset Timing: Intermittent Current Severity: Moderate Maximum Severity: Moderate Narrative: The patient presents to the emergency department with dysuria and frequency. Symptoms began over the past 2 days. She states she is had some increasing urge for urination. She denies any fevers or chills. She states that she usually does not have systemic symptoms when she has UTI. She is also had some mild left-sided back pain which she attributes to her job. Prior similar symptoms: No Recent Illness/Hospitalization: No Past Medical History - Allergies and Home Meds Allergies/Adverse Reactions: Allergies No Known Allergies Allergy (Verified 03/18/19 06:30) Primary Care Physician: Austin Castro MD [Primary Care Provider] - Prior records reviewed: Yes Past Medical History: None Surgical History: no surgical history Smoking Status: Never smoker Review of Systems General: Denies: Chills, Fever, Sweats Eyes: Denies: Visual changes - bilaterally, Diplopia ENT: Denies: Rhinorrhea, Sore throat Cardiovascular: Denies: Chest pain, Palpitations Respiratory: Denies: Dyspnea, Cough, Dyspnea on exertion Gastrointestinal: Denies: Abdominal pain, Nausea, Vomiting, Diarrhea, Melena, Hematochezia Genitourinary: Reports: Dysuria, Frequency. Denies: Hematuria Musculoskeletal: Reports: Back pain. Denies: Extremity Pain Skin: Denies: Rash, Wounds Neurological: Denies: Headache, Weakness, Numbness Physical Exam Vital Signs/Narrative: Vital Signs Temp Pulse Resp BP Pulse Ox 03/18/19 06:30 98.3 F 81 20 H 136/81 H 97 Inital Vital Signs reviewed: Yes General: Well nourished, Well developed, No Acute Distress Head: Normocephalic, Atraumatic Eyes: Perrl, EOMI ENT: Moist mucous membranes, No rhinorrhea Neck: Supple, Nontender Cardiovascular: Regular rate, Regular rhythm, No murmurs Respiratory: No distress, CTA bilaterally, Chest nontender Abdomen: Soft, Nontender, Nondistended, Normal bowel sounds Back: Nontender, Normal Inspection Extremities: Nontender, No edema Skin: Normal color, No rash Neurological: Alert, Oriented x3, Cranial nerves II-XII grossly intact, Normal Strength, Normal Sensation Psychological: Normal affect, Normal Mood Diagnostic/Tx/Re-eval Abnormal Lab Results 03/18/19 07:10 Urine Color Yellow Urine Clarity Sl. Cloudy Urine pH 5.0 Ur Specific [place] 1.025 Urine Protein 30 H Urine Glucose (UA) Normal Urine Ketones 5 H Urine Occult Blood Negative Urine Nitrite Negative Urine Bilirubin Negative Urine Urobilinogen Normal Ur Leukocyte Esterase 500 H Urine RBC 0 SEEN Urine WBC 5-10 SEEN Ur Squamous Epith Cells 10-25 SEEN Urine Bacteria 0 SEEN Urine Mucus 0 SEEN Urine Test Negative - Medical Decision Making The patient symptoms do seem consistent with acute cystitis. Her abdomen is soft and nontender. Urine does show some trace evidence of infection. She is not . Her back pain does seem entirely muscular. The patient will be treated with anti-inflammatories and Macrobid. She was counseled concerning symptoms and reasons to return. She will be discharged home. Impression 1. Acute cystitis 2. Musculoskeletal back pain ED Disposition - Plan for ED Patient: Instructions: Bladder Infection, Female (Adult) Prescriptions: Nitrofurantoin Macrocrystals [Macrobid] 100 mg PO Q12 #10 cap Prescription Printed Naproxen [Naprosyn] 500 mg PO BID PRN #20 tab Prescription Printed Referrals: Austin Castro MD [Primary Care Provider] -
[2019-03-18] MEDS: Naproxen 500 MG Tablet PO (07:10)
[2019-03-18 07:11] LABS: Bacteria 0 SEEN /hpf (None Seen); Mucous, Urine 0 SEEN /hpf (<or=2+); Red Blood Cells-Urine 0 SEEN /hpf (0-5)
[2019-03-18 07:13] LABS: Color, Urine Yellow (Yellow); Glucose, Dipstick Normal (Normal); Ketone-Dipstick 5 mg/dl (Negative); Leukocyte Esterase-Dipstick 500 /ul (Negative); Nitrite-Dipstick Negative (Negative); Occult Blood-Urine Negative /ul (Negative); Protein-Dipstick 30 mg/dl (Negative); Specific Gravity, Urine 1.025 (1.002-1.030); Urine Bilirubin Dipstick Negative (Negative); Urine Clarity Sl. Cloudy (Clear); Urine Urobilinogen Normal (Normal)
[2019-03-18 07:19] LABS: Squamous Epithelial Cells - UA 10-25 SEEN /hpf (5-10); White Blood Cells 5-10 SEEN /hpf (0-5)
[2019-03-18 07:20] LABS: Internal QC Validated? YES +Cl - CLEAR BKGD; Pregnancy, Urine Negative Negative
[2019-03-18] MEDS: Nitrofurantoin Macrocrystals 100 MG Capsule PO (07:26)
== END 2019-03-18 07:27 | disposition home or self-care (01) ==
PROVIDERS: Emergency Provider Emergency Medicine; Family Provider Family Medicine; PCP Family Medicine
DX: N30.00 Acute cystitis without hematuria (principal); M54.9 Dorsalgia, unspecified
CPT/HCPCS: 81001; 81025; 99283

== ENCOUNTER 2019-05-13 07:48 | Emergency (ER) | payer SELFPAY ==
[2019-05-13 07:48] VITALS: BP 156/77; PULSE 94; RESP 22; TEMP 36.6; O2SAT 97; BMI 44.5
--- NOTE | 2019-05-13 07:59 | ED.VIS.GEN ---
History of Present Illness Chief Complaint: Abd Pain Detail of Chief Complaint: Pelvic pain Informant: Patient Onset: Today Context: Gradual Onset Timing: Waxes and wanes Current Severity: Mild Maximum Severity: Moderate Narrative: Patient presents with lower pelvic pain that started early this morning while she was at work. She describes it is crampy and sharp. She states she is 20 days late with her menstrual cycle. She did, however, just stop her control about 6 weeks ago. She has mild dysuria. She denies vaginal discharge. She does admit to feeling anxious and is pacing in the room when I enter. Past Medical History - Allergies and Home Meds Allergies/Adverse Reactions: Allergies No Known Allergies Allergy (Verified 05/13/19 07:51) Primary Care Physician: Austin Castro MD [Primary Care Provider] - Prior records reviewed: Yes Past Medical History: - - Reviewed Surgical History: no surgical history Lives: Spouse/ Significant Other Smoking Status: Never smoker Review of Systems General: Denies: Chills, Fever Eyes: Denies: Visual changes - bilaterally ENT: Denies: Bilateral ear pain Cardiovascular: Denies: Chest pain Respiratory: Denies: Dyspnea Gastrointestinal: Reports: Abdominal pain. Denies: Nausea, Vomiting, Diarrhea Genitourinary: Reports: Dysuria - Mild Musculoskeletal: Denies: Back pain, Extremity Pain Skin: Denies: Rash Neurological: Denies: Headache Psych: Reports: Anxiety Allergy: Denies: Uticaria Physical Exam Vital Signs/Narrative: Vital Signs Temp Pulse Resp BP Pulse Ox 05/13/19 07:48 97.9 F 94 22 H 156/77 H 97 Inital Vital Signs reviewed: Yes General: Well nourished, Well developed Head: Normocephalic ENT: Moist mucous membranes Neck: Supple Cardiovascular: Regular rate, Regular rhythm Respiratory: No distress, CTA bilaterally Abdomen: Soft, Tender - Suprapubic tenderness to palpation., Hypoactive bowel sounds. Negative for: Guarding, Rebound tenderness Back: Nontender Extremities: Nontender Skin: Normal color, No rash Neurological: Alert, Oriented x3 Psychological: - - Anxious Diagnostic/Tx/Re-eval Laboratory Results 05/13/19 05/13/19 05/13/19 08:10 08:10 08:10 WBC 9.8 RBC 4.76 Hgb 12.7 Hct 39.9 MCV 83.8 MCH 26.7 L MCHC 31.8 L RDW Std Deviation 39.2 RDW Coeff of Juliann 13.0 Plt Count 262 MPV 10.2 Immature Gran % (Auto) 0.300 Neut % (Auto) 59.5 Lymph % (Auto) 30.8 [place] % (Auto) 7.2 Eos % (Auto) 1.7 Baso % (Auto) 0.5 Absolute Neuts (auto) 5.8 Absolute Lymphs (auto) 3.03 Nucleated RBC % 0 Sodium 138 Potassium 3.9 Chloride 106 Carbon Dioxide 27.0 Anion Gap 5 BUN 12 Creatinine 0.57 Estim Creat Clear Calc 129.15 Est GFR (MDRD) Af Amer 172 Est GFR (MDRD) Non-Af 142 BUN/Creatinine Ratio 21.2 H Glucose 101 Calcium 9.0 HCG, Quant < 1 Urine Color Urine Clarity Urine pH Ur Specific [place] Urine Protein Urine Glucose (UA) Urine Ketones Urine Occult Blood Urine Nitrite Urine Bilirubin Urine Urobilinogen Ur Leukocyte Esterase Urine RBC Urine WBC Ur Squamous Epith Cells Urine Bacteria Urine Mucus 05/13/19 08:10 WBC RBC Hgb Hct MCV MCH MCHC RDW Std Deviation RDW Coeff of Juliann Plt Count MPV Immature Gran % (Auto) Neut % (Auto) Lymph % (Auto) [place] % (Auto) Eos % (Auto) Baso % (Auto) Absolute Neuts (auto) Absolute Lymphs (auto) Nucleated RBC % Sodium Potassium Chloride Carbon Dioxide Anion Gap BUN Creatinine Estim Creat Clear Calc Est GFR (MDRD) Af Amer Est GFR (MDRD) Non-Af BUN/Creatinine Ratio Glucose Calcium HCG, Quant Urine Color Yellow Urine Clarity Clear Urine pH 6.0 Ur Specific [place] 1.020 Urine Protein Negative Urine Glucose (UA) Normal Urine Ketones Negative Urine Occult Blood Negative Urine Nitrite Negative Urine Bilirubin Negative Urine Urobilinogen Normal Ur Leukocyte Esterase Negative Urine RBC 0 SEEN Urine WBC 0 SEEN Ur Squamous Epith Cells 0-5 SEEN Urine Bacteria RARE Urine Mucus 0 SEEN - Medical Decision Making Patient was given a dose of IV Toradol. On repeat evaluation she is resting comfortably. She declines pelvic examination. I discussed with her my suspicion is that her body try to regulate her hormones again after stopping her oral control. She is likely having some uterine cramping. She has no pain over the ovaries. She is reassured with her findings here and will follow up with her [employer]PECT[employer]. ED Disposition - Plan for ED Patient: Disposition: Home or Assisted Living Diagnosis: Pelvic pain Instructions: PELVIC PAIN, Unknown Cause Referrals: Austin Castro MD [Primary Care Provider] - Additional Instructions: Follow-up with Dr Castro or your OBGYN
[2019-05-13] MEDS: Ketorolac 30 MG/ML Syringe IV (08:13)
[2019-05-13] MEDS: 0.9% Normal Saline 1,000 ML 150 ML IV (08:13)
[2019-05-13 08:14] LABS: Mucous, Urine 0 SEEN /hpf (<or=2+); Red Blood Cells-Urine 0 SEEN /hpf (0-5); White Blood Cells 0 SEEN /hpf (0-5)
[2019-05-13 08:16] LABS: Absolute Lymphocyte Count 3.03 X10^3/uL (0.83-4.51); Absolute Neutrophil Count 5.8 X10^3/uL (2.0-7.7); Basophil# 0.05 X10^3/uL; Basophil% 0.5 % (0-1); Eosinophil# 0.17 X10^3/uL; Eosinophils% 1.7 % (0-5); Hematocrit 39.9 % (37-47); Hemoglobin 12.7 g/dL (12.0-15.0); Lymphocyte # 3.03 X10^3/ul (4.0); Lymphocyte % 30.8 % (19-41); Mean Corp Hgb Conc 31.8 g/dL (32-36); Mean Corpuscular Hgb 26.7 pg (27.0-32.0); Mean Corpuscular Volume 83.8 fL (81-99); Mean Platelet Vol. 10.2 fl (6.2-12.0); Monocyte# 0.71 X10^3/uL; Monocyte% 7.2 % (0-10); NRBC Flagged by Analyzer 0 % (0-5); Neutrophil # 5.84 X10^3/uL (2.7-7.7); Neutrophil % 59.5 % (47-70); Platelet Count 262 K/mm3 (150-450); RBC Distribution Width SD 39.2 fl (35.1-43.9); Red Blood Count 4.76 M/mm3 (4.2-5.4); White Blood Count 9.8 K/mm3 (4.4-11.0)
[2019-05-13 08:17] LABS: Color, Urine Yellow (Yellow); Glucose, Dipstick Normal (Normal); Ketone-Dipstick Negative (Negative); Leukocyte Esterase-Dipstick Negative /ul (Negative); Nitrite-Dipstick Negative (Negative); Occult Blood-Urine Negative /ul (Negative); Protein-Dipstick Negative (Negative); Urine Bilirubin Dipstick Negative (Negative); Urine Clarity Clear (Clear); Urine Urobilinogen Normal (Normal)
[2019-05-13 08:25] LABS: Bacteria RARE /hpf (None Seen); Squamous Epithelial Cells - UA 0-5 SEEN /hpf (5-10)
[2019-05-13 08:30] LABS: Anion Gap 5 (5-15); BUN 12 mg/dL (7-18); BUN/Creat Ratio 21.2 RATIO (10-20); Chloride 106 mmol/L (98-107); Creatinine, Serum 0.57 mg/dL (0.55-1.02); EST Glomerular Filtration Rate 142 mL/min (>60); Est Glom Filt Rate - Afr Amer 172 mL/min (>60); Estimated Creatinine Clearance 129.15 ml/min; Glucose 101 mg/dL (74-106); Potassium 3.9 mmol/L (3.5-5.1); Sodium Level 138 mmol/L (136-145)
[2019-05-13 08:38] LABS: hCG Titer Quant., Serum < 1 mIU/mL (1-3)
== END 2019-05-13 09:00 | disposition home or self-care (01) ==
PROVIDERS: Emergency Provider Emergency Medicine; Family Provider Family Medicine; PCP Family Medicine
DX: R10.2 Pelvic and perineal pain (principal)
CPT/HCPCS: 80048; 81001; 84702; 85025; 96361; 96374; 99283; J7030; A4216

== ENCOUNTER → 2019-08-03 07:14 | Outpatient (CLI) | payer OTHER, SELFPAY ==
[2019-07-30 14:38] VITALS: BMI 44.5
--- NOTE | 2019-08-03 07:14 | MRI_ITS ---
STUDY: MRI LEFT KNEE REASON FOR EXAM: Anterior/lateral left knee pain, injury one week ago. TECHNIQUE: Standardized fat and water weighted pulse sequences were obtained in all 3 orthogonal planes. COMPARISON: None. FINDINGS: Normal medial meniscus. Normal hyaline cartilage of the medial femorotibial compartment. Normal medial femoral condyle and tibial plateau. Normal medial collateral ligamentous complex (MCL). Normal distal semimembranosus, gracilis and semitendinosus tendons. Normal lateral meniscus. Normal hyaline cartilage of the lateral femorotibial compartment. Normal lateral femoral condyle and tibial plateau. Normal proximal tibiofibular articulation. Normal lateral collateral (fibular) ligament. Normal popliteus tendon. Normal biceps femoris tendon. Normal anterior cruciate ligament (ACL). Normal posterior cruciate ligament (PCL). Normal congruent patellofemoral articulation. Normal hyaline cartilage of the patellofemoral compartment. Normal medial and lateral patellar retinaculum. Normal quadriceps tendon. Normal patellar tendon. Normal Hoffa''s fat pad. There is a minimal volume of fluid in the knee joint. There is a thin medial patellar plica. There is a small focus of edema in the anterior subcutis adipose space. The otherwise visualized osseous structures are unremarkable. MRI/Lower Ext Joint Only (Routine) IMPRESSION: Small focus of edema in the anterior subcutis adipose space. No demonstrated internal derangement. Electronically Signed: Kendell White MD at 8:32 EST Tel , Service support ,
== END ==
PROVIDERS: PCP Family Medicine; Referring Provider Physician Assistant Surgical; Visit Provider Physician Assistant Surgical
DX: S86.912A Strain of unspecified muscle(s) and tendon(s) at lower leg level, left leg, initial encounter (principal)
CPT/HCPCS: 73721

== ENCOUNTER → 2020-02-03 10:41 | Outpatient (CLI) | payer BC, SELFPAY ==
[2020-02-03 09:29] VITALS: BMI 44.5
== END ==
PROVIDERS: PCP Family Medicine; Referring Provider Physician Assistant Surgical; Visit Provider Physician Assistant Surgical
DX: Z20.828 Contact with and (suspected) exposure to other viral communicable diseases (principal)
CPT/HCPCS: 87635; U0003

== ENCOUNTER → 2020-07-15 09:02 | Outpatient (CLI) | payer OTHER, SELFPAY ==
[2020-07-03 12:43] VITALS: BMI 46.8
[2020-07-15 09:51] LABS: hCG Titer Quant., Serum < 1 mIU/mL (1-3)
== END ==
LOC: LAB 09:04
PROVIDERS: Obstetrics & Gynecology; PCP Family Medicine; Referring Provider Obstetrics & Gynecology; Visit Provider Obstetrics & Gynecology
DX: N92.6 Irregular menstruation, unspecified (principal)
CPT/HCPCS: 36415; 84702

== ENCOUNTER → 2020-07-22 14:01 | Outpatient (CLI) | payer OTHER, SELFPAY ==
[2020-07-03 12:43] VITALS: BMI 46.8
[2020-07-26 03:06] LABS: Alternaria tenuis <0.10 kU/L (Class 0); Ash, White <0.10 kU/L (Class 0); Aspergillus fumigatus <0.10 kU/L (Class 0); Bermuda Grass <0.10 kU/L (Class 0); Birch <0.10 kU/L (Class 0); Black Walnut <0.10 kU/L (Class 0); Cat Hair / Dander,Stand <0.10 kU/L (Class 0); Cedar, Mountain <0.10 kU/L (Class 0); Cladosporium herbarum <0.10 kU/L (Class 0); Cockroach, American <0.10 kU/L (Class 0); Cottonwood <0.10 kU/L (Class 0); D farinae Mite <0.10 kU/L (Class 0); D pteronyssinus <0.10 kU/L (Class 0); Dog Epithelia <0.10 kU/L (Class 0); Elm, American White <0.10 kU/L (Class 0); Immunoglobulin E 19 IU/mL (6-495); Maple/Box Elder <0.10 kU/L (Class 0); Mulberry, White <0.10 kU/L (Class 0); Oak, White <0.10 kU/L (Class 0); Pecan <0.10 kU/L (Class 0); Penicillium Notatum <0.10 kU/L (Class 0); Pigweed, Rough <0.10 kU/L (Class 0); Ragweed, Short/Common <0.10 kU/L (Class 0); Russian Thistle <0.10 kU/L (Class 0); Sheep Sorrel <0.10 kU/L (Class 0); Sycamore, American <0.10 kU/L (Class 0); Timothy Grass <0.10 kU/L (Class 0)
[2020-07-26 08:36] LABS: Mouse Urine <0.10 kU/L (Class 0)
== END ==
LOC: LAB 14:01
PROVIDERS: PCP Family Medicine; Referring Provider Otolaryngology; Visit Provider Otolaryngology
DX: T78.40XA Allergy, unspecified, initial encounter (principal)
CPT/HCPCS: 36415; 82785; 86003

== ENCOUNTER → 2020-07-30 12:39 | Outpatient (CLI) | payer OTHER, SELFPAY ==
[2020-07-03 12:43] VITALS: BMI 46.8
--- NOTE | 2020-07-30 12:47 | CT_ITS ---
STUDY: CT MAXILLOFACIAL SINUSES REASON FOR EXAM: Female, 25 years old. SINUSITIS RADIATION DOSAGE (If Supplied By Facility): CTDIvol = ( 33.45 ) mGy, DLP = ( 885.08 ) mGycm TECHNIQUE: The patient was scanned in a multi detector CT scanner. High resolution axial imaging was performed without the administration of intravenous contrast material. Sagittal and coronal images were reconstructed. Individualized dose optimization techniques were used for this CT. COMPARISON: None. FINDINGS: FRONTAL SINUSES: Normal aeration, without mucosal inflammatory disease. ETHMOIDAL SINUSES: Normal aeration, without mucosal inflammatory disease. MAXILLARY SINUSES: Minimal nodular mucosal thickening along the lateral wall of the left maxillary sinus inferiorly. SPHENOIDAL SINUSES: Normal aeration, without mucosal inflammatory disease. There is patency of the bilateral maxillary infundibuli with normal uncinate processes, ethmoid bullae, and hiatus semilunaris. There is jose armando bullosa of the left middle turbinate. There is hypertrophy of the left inferior nasal turbinate. Normal midline nasal septum. There is patency of the bilateral nasal airways. The visualized osseous structures are normal. The visualized bilateral orbital contents are normal. CT/Sinus/Facial Bone IMPRESSION: Mild degree of the nodular mucosal thickening along the lateral wall of left maxillary sinus inferiorly. Hypertrophy of the left inferior turbinate. Electronically Signed: Sergio Brown, at 13:38 EST , Service support ,
== END ==
LOC: CT 12:40
PROVIDERS: PCP Family Medicine; Referring Provider Otolaryngology; Visit Provider Otolaryngology
DX: J32.9 Chronic sinusitis, unspecified (principal)
CPT/HCPCS: 70486

== ENCOUNTER → 2020-08-20 08:07 | Outpatient (CLI) | payer OTHER, SELFPAY ==
[2020-08-06 14:07] VITALS: BMI 48.1
[2020-08-20 08:47] LABS: Hemoglobin A1c 5.2 % (3.8-5.6)
[2020-08-20 08:53] LABS: Cholesterol 179 mg/dL (200); High Density Lipoprotein 45 mg/dL; Prolactin 8.3 ng/mL; Thyroid Stim Hormone (TSH) 1.74 uIU/mL (0.358-3.74); Triglycerides 111 mg/dL; Very Low Density Lipoprotein 22 mg/dL (5-40)
[2020-08-28 09:36] LABS: 17-Hydroxyprogesterone 32 ng/dL (.)
== END ==
LOC: PAVLAB 08:10
PROVIDERS: PCP Family Medicine; Referring Provider Obstetrics & Gynecology; Visit Provider Obstetrics & Gynecology
DX: N92.6 Irregular menstruation, unspecified (principal)
CPT/HCPCS: 36415; 80061; 82627; 83036; 83498; 84146; 84403; 84443; 82626

== ENCOUNTER → 2020-09-25 14:47 | Outpatient (CLI) | payer OTHER, SELFPAY ==
[2020-08-06 14:07] VITALS: BMI 48.1
== END ==
LOC: SL 14:48
PROVIDERS: PCP Family Medicine; Visit Provider Otolaryngology
DX: G47.33 Obstructive sleep apnea (adult) (pediatric) (principal)
CPT/HCPCS: 95806

== ENCOUNTER → 2020-09-30 16:17 | Outpatient (CLI) | payer OTHER, SELFPAY ==
[2020-08-06 14:07] VITALS: BMI 48.1
== END ==
PROVIDERS: PCP Family Medicine; Visit Provider Otolaryngology
DX: Z46.89 Encounter for fitting and adjustment of other specified devices (principal)

== ENCOUNTER 2020-10-12 19:37 | Emergency (ER) | payer OTHER, SELFPAY ==
[2020-08-06 14:07] VITALS: BMI 48.1
[2020-10-12 19:38] VITALS: BP 162/91; PULSE 81; RESP 22; TEMP 36.3; O2SAT 97; BMI 49.8
--- NOTE | 2020-10-12 20:06 | ED.VIS.GEN ---
History of Present Illness Chief Complaint: Sore Throat Informant: Patient Narrative: Patient is a 25-year-old female with a past medical history of bipolar and anxiety who presents to the emergency department for sore throat. Her symptoms have been present over the past 2 days. She feels like her tonsils are patchy and red. 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 She states she felt warm 2 days ago but has not had any fevers or chills since. She has painful swallowing. No issues handling her secretions. No shortness of breath. No cough. No ear pain. She denies any rashes. No neck stiffness. She has not been taking anything for symptoms. Past Medical History - Allergies and Home Meds Allergies/Adverse Reactions: Allergies No Known Allergies Allergy (Verified 10/12/20 19:40) Primary Care Physician: Alecia Rogers MD [Primary Care Provider] - Prior records reviewed: Yes Surgical History: no surgical history Smoking Status: Former smoker Review of Systems All systems negative except as indicated General: Denies: Chills, Fever, Sweats Eyes: Denies: Visual changes - bilaterally, Diplopia ENT: Reports: Sore throat. Denies: Rhinorrhea Cardiovascular: Denies: Chest pain, Palpitations Respiratory: Denies: Dyspnea, Cough, Dyspnea on exertion Gastrointestinal: Denies: Abdominal pain, Nausea, Vomiting, Diarrhea Genitourinary: Denies: Dysuria, Hematuria, Frequency Musculoskeletal: Denies: Back pain, Extremity Pain Skin: Denies: Rash, Wounds Neurological: Denies: Headache, Weakness, Numbness Physical Exam Vital Signs/Narrative: Vital Signs Temp Pulse Resp BP Pulse Ox 10/12/20 19:38 97.3 F L 81 22 H 162/91 H 97 Inital Vital Signs reviewed: Yes General: Well nourished, Well developed, No Acute Distress Head: Normocephalic, Atraumatic Eyes: Perrl, EOMI ENT: Moist mucous membranes, No rhinorrhea, TM's clear, - - There are some white patches on the tonsils and uvula. No appreciable abscess. Oropharynx is clear. No muffled voice Neck: Supple, Nontender, No lymphadenopathy Cardiovascular: Regular rate, Regular rhythm, No murmurs Respiratory: No distress, CTA bilaterally, Chest nontender Abdomen: Soft, Nontender, Nondistended, Normal bowel sounds Back: Nontender, Normal Inspection Extremities: Nontender, No edema Skin: Normal color, No rash Neurological: Alert, Oriented x3, Cranial nerves II-XII grossly intact, Normal Strength, Normal Sensation Psychological: Normal affect, Normal Mood Diagnostic/Tx/Re-eval - Medical Decision Making Patient presents to the ED for sore throat. She is concerned that she has strep throat. Upon arrival to the emergency department she is mildly hypertensive but otherwise normal vital signs. She is afebrile. Will obtain strep throat swab given the patchiness and sore throat. Any history of diabetes in the past. She has had a blood glucose checked multiple times and is always been normal. Patient strep test did come back negative. Will recommend symptomatic treatment. She is requesting a dose of steroids will be given a dose of Decadron here. I did advise her to use Chloraseptic spray as well as Tylenol/ibuprofen as needed. She needs to follow-up with her PCP. She develops a significant throat swelling or systemic symptoms she needs to return to the emergency department. She understands and is agreeable this plan. Discharged home in stable condition. All questions answered. ED Disposition - Plan for ED Patient: Disposition: Home or Assisted Living Diagnosis: Pharyngitis Instructions: ED Pharyngitis, Viral Referrals: Alecia Rogers MD [Primary Care Provider] - 3-5 Days if not improving
[2020-10-12] MEDS: dexAMETHasone 10 MG/ML Vial 6 MG PO.IVFORM (21:02)
[2020-10-12 21:04] VITALS: RESP 15
== END 2020-10-12 21:04 | disposition home or self-care (01) ==
PROVIDERS: Emergency Provider Emergency Medicine; PCP Family Medicine
DX: J02.9 Acute pharyngitis, unspecified (principal); Z87.891 Personal history of nicotine dependence
CPT/HCPCS: 87880; 96374; 99283

== ENCOUNTER → 2020-11-25 13:52 | Outpatient (CLI) | payer OTHER, SELFPAY ==
[2020-11-21 11:56] VITALS: BMI 48.1
--- NOTE | 2020-11-25 13:54 | US_ITS ---
STUDY: ULTRASOUND OF THE FEMALE PELVIS - COMPLETE REASON FOR EXAM: Female, 25 years old. Irregular menses LMP: 08/20/2020. TECHNIQUE: Transabdominal and Transvaginal TECHNICAL QUALITY: Adequate. COMPARISON: None. FINDINGS: The uterus is anteverted and is in a midline position. The uterus measures 7.9 cm x 5.2cm x 3.5 cm. There is a Nabothian cyst of the cervix. The endometrium measures 8 mm in thickness, and is hyperechoic. There is no demonstrated endometrial mass. There is no demonstrated myometrial mass. I.U.D. - The patient does not have an I.U.D. The right ovary is visualized. The right ovary measures 2.8 cm x 2.2 cm x 2 cm. There is no right ovarian cyst or ovarian mass. There is no visualized right adnexal mass or complex lesion. There is normal arterial and normal venous vascularity. The left ovary is visualized. The left ovary measures 2.7 cm x 2.5 cm x 1.6 cm. There is no left ovarian cyst or ovarian mass. There is no visualized left adnexal mass or complex lesion. There is normal arterial and normal venous vascularity. There is no fluid in the cul-de-sac. The pre void volume of the bladder was 28 ml. Polycystic ovary disease: No. US/Transvaginal Non- IMPRESSION: Normal female pelvis. Electronically Signed: Sergio Brown MD at 14:38 EDT , Service support ,
--- NOTE | 2020-11-25 13:54 | US_ITS ---
STUDY: ULTRASOUND OF THE FEMALE PELVIS - COMPLETE REASON FOR EXAM: Female, 25 years old. Irregular menses LMP: 08/20/2020. TECHNIQUE: Transabdominal and Transvaginal TECHNICAL QUALITY: Adequate. COMPARISON: None. FINDINGS: The uterus is anteverted and is in a midline position. The uterus measures 7.9 cm x 5.2cm x 3.5 cm. There is a Nabothian cyst of the cervix. The endometrium measures 8 mm in thickness, and is hyperechoic. There is no demonstrated endometrial mass. There is no demonstrated myometrial mass. I.U.D. - The patient does not have an I.U.D. The right ovary is visualized. The right ovary measures 2.8 cm x 2.2 cm x 2 cm. There is no right ovarian cyst or ovarian mass. There is no visualized right adnexal mass or complex lesion. There is normal arterial and normal venous vascularity. The left ovary is visualized. The left ovary measures 2.7 cm x 2.5 cm x 1.6 cm. There is no left ovarian cyst or ovarian mass. There is no visualized left adnexal mass or complex lesion. There is normal arterial and normal venous vascularity. There is no fluid in the cul-de-sac. The pre void volume of the bladder was 28 ml. Polycystic ovary disease: No. US/Pelvic (Non ) IMPRESSION: Normal female pelvis. Electronically Signed: Sergio Brown MD at 14:38 EDT , Service support ,
== END ==
LOC: OPUS 13:52
PROVIDERS: PCP Family Medicine; Referring Provider Obstetrics & Gynecology; Visit Provider Obstetrics & Gynecology
DX: N92.6 Irregular menstruation, unspecified (principal)
CPT/HCPCS: 76830; 76856

== ENCOUNTER → 2020-12-31 08:38 | Outpatient (CLI) | payer OTHER, SELFPAY ==
[2020-12-31 07:52] VITALS: BMI 48.1
[2020-12-31 09:01] LABS: Basophil# 0.03 X10^3/uL; Basophil% 0.4 % (0-1); Eosinophil# 0.12 X10^3/uL; Eosinophils% 1.5 % (0-5); Hematocrit 38.7 % (37-47); Hemoglobin 12.2 g/dL (12.0-15.0); Lymphocyte % 30.3 % (19-41); Mean Corp Hgb Conc 31.5 g/dL (32-36); Mean Corpuscular Hgb 25.5 pg (27.0-32.0); Mean Platelet Vol. 10.5 fl (6.2-12.0); Monocyte# 0.37 X10^3/uL; Monocyte% 4.7 % (0-10); NRBC Flagged by Analyzer 0 % (0-5); Platelet Count 255 K/mm3 (150-450); RBC Distribution Width CV 14.1 % (11.6-14.6); RBC Distribution Width SD 41.2 fl (35.1-43.9); Red Blood Count 4.78 M/mm3 (4.2-5.4); White Blood Count 7.9 K/mm3 (4.4-11.0)
[2021-01-05 12:07] LABS: Aspirgillus flavus Negative (Neg:<1:1); Aspirgillus fumigatus Negative (Neg:<1:1); Aspirgillus niger Negative (Neg:<1:1)
[2021-01-06 11:30] LABS: Immunoglobulin E 20 IU/mL (6-495)
[2021-01-07 04:38] LABS: Alternaria alternata <0.10 kU/L (Class 0); Bermuda Grass <0.10 kU/L (Class 0); Bluegrass, Kentucky <0.10 kU/L (Class 0); Cat Hair/Dander, Standard <0.10 kU/L (Class 0); D farinae Mite <0.10 kU/L (Class 0); D pteronyssinus <0.10 kU/L (Class 0); Dog Epithelia <0.10 kU/L (Class 0); Elm, American White <0.10 kU/L (Class 0); Mouse Urine <0.10 kU/L (Class 0); Oak, White <0.10 kU/L (Class 0); Plantain, English <0.10 kU/L (Class 0); Ragweed, Short/Common <0.10 kU/L (Class 0)
[2021-01-07 11:47] LABS: ANTINUCLEAR ANTIBODIES DIRECT Negative (Negative)
== END ==
LOC: PAVLAB 08:38
PROVIDERS: PCP Family Medicine; Referring Provider Nurse Practitioner Acute Care; Visit Provider Nurse Practitioner Acute Care
DX: R05 Cough (principal)
CPT/HCPCS: 36415; 82785; 85025; 86003; 86038; 86225; 86235; 86606

== ENCOUNTER → 2021-01-09 09:13 | Outpatient (CLI) | payer OTHER, SELFPAY ==
[2020-12-31 07:52] VITALS: BMI 48.1
[2021-01-07 13:04] VITALS: BMI 48.1
--- NOTE | 2021-01-09 13:34 | PFTCOMP ---
COMPLETE PULMONARY FUNCTION TEST INTERPRETATION Brief HPI: Patient is a 25 year old female, currently under the care of Shanta Gilbert, who presents to [facility] for complete pulmonary function tests secondary to diagnosis of cough. Respiratory therapist reports good effort and reproducible results. Interpretation: Forced expiration spirometry shows no large airways obstructive ventilatory defect with an FEV1 of 93% predicted. There is no significant bronchodilator response by strict ATS criteria. Spirograms are of good quality and plateau normally. The respiratory flow volume loop shows a normal pattern. Lung volumes by body plethysmography show a normal total lung capacity at 4.14 L, 83% predicted. All other lung volumes are within normal limits. Diffusion capacity by carbon monoxide is normal at 79% predicted. The airway resistance is normal. No previous pulmonary function tests were available for review. Impression: These pulmonary function tests are grossly within normal limits. Total lung capacity and DLCO are at the lower limit of normal, so early interstitial lung disease cannot be excluded.
== END ==
LOC: PSN 09:14
PROVIDERS: PCP Family Medicine; Referring Provider Nurse Practitioner Acute Care; Visit Provider Nurse Practitioner Acute Care
DX: R05 Cough (principal)
CPT/HCPCS: 94060; 94726; 94729

== ENCOUNTER 2021-01-31 23:38 | Emergency (ER) | payer OTHER, SELFPAY ==
[2021-01-07 13:04] VITALS: BMI 48.1
[2021-01-31 23:39] VITALS: BP 165/102; PULSE 127; RESP 16; TEMP 37.1; O2SAT 99; BMI 48.3
--- NOTE | 2021-02-01 00:18 | EDS_ITS ---
HPI HPI - GI History of Present Illness Chief Complaint: Abd Pain Detail of Chief Complaint: Gas pain Informant: patient Abdominal Pain/Flank Pain Onset: Today Context: Gradual Onset Timing: Intermittent Quality: Cramping Location: RLQ Current Severity: Gone Maximum Severity: Mild Worsened by: Movement; Not Worsened By Car ride and Food Relieved by: Nothing; Not Relieved By Antacids and Food Nausea/Vomiting/Emesis GI Symptom: Negative for Nausea and Vomiting Diarrhea/Melena/Hematochezia GI Symptom: Negative for Diarrhea, Melena and Hematochezia Associated Symptoms Associated Symptoms: Negative for Dysuria, Frequency, Hematuria and Urgency Narrative Narrative: 25-year-old female who suffers from severe anxiety. States she is 4 weeks she has had multiple positive test. Says she has been eating a lot of salad. And has had some mild intermittent right lower quadrant abdominal pain that she states is gas pain. She denies vomiting or diarrhea. No dysuria. No vaginal bleeding or discharge. Currently she is symptom-free. Pain-free. Prior similar symptoms: No Recent Illness/Hospitalization: No PFSH PFSH Medical History Anxiety Asthma Back pain Bipolar 1 disorder Bipolar disorder Depression GERD (gastroesophageal reflux disease) Hemorrhoids Panic attacks Right foot strain SOB (shortness of breath) Home Medications escitalopram oxalate 10 mg tablet 20 mg PO DAILY tab 08/06/20 [History Last Taken Unknown] hydroxyzine pamoate 50 mg capsule 100 mg PO QHS cap 08/06/20 [History Last Taken Unknown] albuterol sulfate 90 mcg/actuation aerosol inhaler 2 puff INHALATION Q4H PRN #18 g 01/09/21 [Rx Last Taken Unknown] promethazine 12.5 mg tablet 12.5 mg PO Q6H PRN #90 tab 01/30/21 [Rx Last Taken Unknown] prenat.vits,eddie,zzu-nbtd-itrxg [ Vitamin] 1 tab PO DAILY 01/31/21 [History Last Taken Unknown] Allergy/AdvReac Type Severity Reaction Status Date / Time No Known Allergies Allergy Verified 01/07/21 13:03 Family History Father Brain tumor (benign) Depression Grandmother Hypertension Hyperlipemia Depression Mother Allergies Grandfather Asthma COPD (chronic obstructive pulmonary disease) Surgical History H/O oral surgery Hx of section Social History Smoking Status: Never smoker alcohol intake: never substance use type: does not use caffeine: Yes what type of physical activity do you participate in: aerobics frequency: 3-4 times per week seatbelt use: always do you feel safe at home: Yes additional social history: Boyfriend-Andrzej ROS ROS ED ROS Narrative Intermittent nausea. Review of Systems ROS Unobtainable: Denies due to encephalopathy Constitutional Constitutional ED: Denies chills or fever(s) ENT ENT ED: Denies ear pain Cardiovascular Cardiovascular: Denies chest pain Respiratory/Chest Respiratory/Chest: Denies cough or dyspnea Gastrointestinal Gastrointestinal: Reports abdominal pain and nausea; Denies constipation, diarrhea or vomiting Genitourinary Genitourinary ED: Denies dysuria or hematuria Musculoskeletal Musculoskeletal: Denies myalgias Integumentary Denies rash Neurologic Neurologic: Denies headache(s) Psychiatric Psychiatric: Denies depression Endocrine Endocrinology: Denies polyuria Hematologic/Lymphatic Hematologic/Lymphatic: Denies easy bruising Allergic/Immunologic Allergic/Immunologic ED: Denies urticaria EXAM Physical Exam Narrative Exam Narrative: Well-appearing 25-year-old female anxious. Vital signs stable afebrile. Exam normal. Lungs are clear. Heart tachycardic no murmur. Abdomen obese but soft nontender nondistended no giving or masses. She is absolutely no reproducible abdominal tenderness. Right lower quadrant is completely benign. As is the right upper quadrant. There is no hernia or masses. No distention. Normal bowel sounds. There is no reproducible abdominal pain. Otherwise exam unremarkable. No edema. Const Vital Signs: 01/31/21 23:39 Temperature 98.8 F Temperature Source Temporal Pulse Rate 127 H Respiratory Rate 16 Blood Pressure 165/102 H Blood Pressure Mean 123 Pulse Ox 99 Oxygen Delivery Method Room Air Positive well nourished and well developed General Appearance ED: well developed; Negative for pallor HEENT Reports moist mucous membranes normocephalic and atraumatic; Negative for trauma or tenderness Eyes PERRL and EOMs intact bilaterally Neck no lymphadenopathy, supple and no JVD General: Negative for tenderness Resp normal respiratory effort and clear to auscultation bilaterally Cardio regular rhythm and no murmurs Rate: tachycardic GI non-tender, non-distended and no masses Inspection: Negative for abdominal distention Auscultation: normoactive bowel sounds; Negative for hyperactive bowel sounds or hypoactive bowel sounds Palpation: soft; Negative for tender, guarding, rigid or rebound tenderness present Back/Spine no CVA tenderness Extremity full ROM General Extremety ED: Negative for edema or tenderness General Extremity: Negative for edema Neuro CN's II-XII intact bilaterally Sensorium / Orientation: alert, oriented to person, oriented to place, oriented to time and orientation impaired Psych mental status grossly normal Mood & Affect: anxious Skin no wounds General Skin Exam: Negative for jaundice or pallor Lesions: no lesions Rashes: no rashes MDM MDM MDM Narrative Medical decision making narrative: Discussed with patient and significant other in the room. Her exam is benign. Her abdomen is completely nontender. It is obvious the patient has anxiety issues. I do not think this is her appendix clinically. She has no history or signs of a kidney stone. Its where she describes the pain far right lower lateral quadrant. It would not be involved with any related issues. She is comfortable with no testing will be discharged home. She was happy to be reassured. Discharge Plan Triage Chief Complaint: Abd Pain ED Provider: Spencer Dawson Dx/Rx/DC Orders Clinical Impression: Abdominal pain Instructions: Abdominal Pain Prescriptions: No Action hydroxyzine pamoate [Vistaril] 50 mg capsule 100 mg PO QHS RF: 0 escitalopram oxalate 10 mg tablet 20 mg PO DAILY RF: 0 Vitamin Tablet 1 tab PO DAILY RF: 0 albuterol sulfate [Ventolin HFA] 90 mcg/actuation HFA aerosol inhaler 2 puff inhalation Q4H PRN (Reason: shortness of breath or wheezing) Qty: 18 RF: 6 promethazine 12.5 mg tablet 12.5 mg PO Q6H PRN (Reason: nausea and vomiting) Qty: 90 RF: 4 Primary Care Provider: Alecia Rogers Referrals: Alecia Rogers MD [Primary Care Provider] - As Needed Activity Restrictions/Additional Instructions: Plenty of fluids. Follow-up with your PROPERTY MANAGEMENT INTERN. Return if severe pain, fever or feeling a lot worse. Your exam is unremarkable at this time you need no testing. Disposition Disposition: Home, Self Care
[2021-02-01 00:19] VITALS: BP 147/96; PULSE 102; RESP 16; O2SAT 99
[2021-02-01 00:21] VITALS: BP 147/96; PULSE 102; RESP 16; O2SAT 96
== END 2021-02-01 00:25 | disposition home or self-care (01) ==
PROVIDERS: Emergency Provider Emergency Medicine; PCP Family Medicine
DX: O26.891 Other specified pregnancy related conditions, first trimester (principal); O99.511 Diseases of the respiratory system complicating pregnancy, first trimester; R10.31 Right lower quadrant pain; Z3A.01 Less than 8 weeks gestation of pregnancy; J45.909 Unspecified asthma, uncomplicated
CPT/HCPCS: 99282

== ENCOUNTER → 2021-02-02 13:45 | Outpatient (CLI) | payer OTHER, SELFPAY ==
[2021-02-02 11:57] VITALS: BMI 48.3
[2021-02-02 16:00] LABS: hCG Titer Quant., Serum 318 mIU/mL (1-3)
== END ==
PROVIDERS: PCP Family Medicine; Referring Provider Nurse Practitioner Women's Health; Visit Provider Nurse Practitioner Women's Health
DX: N39.0 Urinary tract infection, site not specified (principal); N92.6 Irregular menstruation, unspecified
CPT/HCPCS: 36415; 84702; 87086; 87088

== ENCOUNTER → 2021-02-04 07:47 | Outpatient (CLI) | payer OTHER, SELFPAY ==
[2021-02-02 11:57] VITALS: BMI 48.3
[2021-02-04 08:30] LABS: hCG Titer Quant., Serum 668 mIU/mL (1-3)
== END ==
PROVIDERS: PCP Family Medicine; Referring Provider Nurse Practitioner Women's Health; Visit Provider Nurse Practitioner Women's Health
DX: N92.6 Irregular menstruation, unspecified (principal)
CPT/HCPCS: 36415; 84702

== ENCOUNTER → 2021-03-18 11:45 | Outpatient (CLI) | payer OTHER, SELFPAY ==
[2021-03-18 12:19] LABS: Absolute Lymphocyte Count 1.92 X10^3/uL (0.83-4.51); Absolute Neutrophil Count 6.5 X10^3/uL (2.0-7.7); Basophil# 0.03 X10^3/uL; Basophil% 0.3 % (0-1); Eosinophil# 0.08 X10^3/uL; Eosinophils% 0.9 % (0-5); Hematocrit 34.9 % (37-47); Hemoglobin 11.5 g/dL (12.0-15.0); Lymphocyte # 1.92 X10^3/ul (0.83-4.51); Lymphocyte % 21.5 % (19-41); Mean Corpuscular Hgb 27.1 pg (27.0-32.0); Mean Corpuscular Volume 82.1 fL (81-99); Mean Platelet Vol. 10.3 fl (6.2-12.0); Monocyte# 0.38 X10^3/uL; Monocyte% 4.3 % (0-10); NRBC Flagged by Analyzer 0 % (0-5); Neutrophil # 6.48 X10^3/uL (2.7-7.7); Neutrophil % 72.7 % (47-70); Platelet Count 244 K/mm3 (150-450); RBC Distribution Width CV 15.2 % (11.6-14.6); RBC Distribution Width SD 44.8 fl (35.1-43.9); Red Blood Count 4.25 M/mm3 (4.2-5.4); White Blood Count 8.9 K/mm3 (4.4-11.0)
[2021-03-18 12:36] LABS: Glucose Challenge Gest 1H 50g 129 mg/dL (70-140)
[2021-03-18 13:00] LABS: NATERA MAILED SPECIMEN
[2021-03-18 14:50] LABS: HIV - WCH Non-Reactive (Nonreactive); Hepatitis B Surface Antigen Non-Reactive (Nonreactive); Hepatitis C Antibody Non-Reactive (Nonreactive); Rubella IgG Reactive (Nonreactive); Syphilis Antibodies Non-reactive
== END ==
LOC: PAVLAB 11:48
PROVIDERS: PCP Family Medicine; Referring Provider Nurse Practitioner Women's Health; Visit Provider Nurse Practitioner Women's Health
DX: Z34.90 Encounter for supervision of normal pregnancy, unspecified, unspecified trimester (principal)
CPT/HCPCS: 36415; 82950; 85025; 86703; 86762; 86780; 86803; 86850; 86900; 86901; 87340

== ENCOUNTER → 2021-06-03 16:29 | Outpatient (CLI) | payer OTHER, SELFPAY | PROVIDERS: PCP Family Medicine; Referring Provider Nurse Practitioner Women's Health; Visit Provider Nurse Practitioner Women's Health | DX: N76.0 Acute vaginitis (principal); R30.9 Painful micturition, unspecified | CPT/HCPCS: 87070; 87086; 87088; 87205 ==

== ENCOUNTER 2021-06-29 16:35 | Outpatient (CLI) | payer OTHER, SELFPAY ==
[2021-06-29 16:43] VITALS: BMI 48.2
[2021-06-29 16:52] VITALS: BP 139/76; PULSE 100; TEMP 36.3
--- NOTE | 2021-06-30 05:29 | OB.TRI.PN ---
Progress Notes Date of Service: 06/29/21 Progress Note: seen in triage for dec fm. upon evlauation heart rate 140s no signfiicant decels, good fm palpated and felt by patient dc home fu as scheduled Charges/Coding Procedures Urinary/Genital [id number]: No Charge Assessment & Plan (1) Decreased movements, second trimester, fetus 1:
== END 2021-06-29 17:30 | disposition home or self-care (01) ==
LOC: WPOUT 16:40 → WP 16:41
PROVIDERS: PCP Family Medicine; Referring Provider Obstetrics & Gynecology; Visit Provider Obstetrics & Gynecology
DX: O36.8121 Decreased fetal movements, second trimester, fetus 1 (principal); Z3A.00 Weeks of gestation of pregnancy not specified
CPT/HCPCS: 59050; 99218; G0378

== ENCOUNTER → 2021-07-06 07:59 | Outpatient (CLI) | payer OTHER, SELFPAY ==
[2021-07-06 08:18] LABS: Absolute Lymphocyte Count 1.67 X10^3/uL (0.83-4.51); Absolute Neutrophil Count 7.4 X10^3/uL (2.0-7.7); Basophil# 0.02 X10^3/uL; Basophil% 0.2 % (0-1); Eosinophil# 0.07 X10^3/uL; Eosinophils% 0.7 % (0-5); Hematocrit 31.3 % (37-47); Hemoglobin 10.1 g/dL (12.0-15.0); Lymphocyte # 1.67 X10^3/ul (0.83-4.51); Lymphocyte % 17.5 % (19-41); Mean Corp Hgb Conc 32.3 g/dL (32-36); Mean Corpuscular Hgb 27.7 pg (27.0-32.0); Monocyte# 0.37 X10^3/uL; Monocyte% 3.9 % (0-10); NRBC Flagged by Analyzer 0 % (0-5); Neutrophil # 7.39 X10^3/uL (2.7-7.7); Neutrophil % 77.3 % (47-70); Platelet Count 192 K/mm3 (150-450); RBC Distribution Width CV 14.7 % (11.6-14.6); RBC Distribution Width SD 45.9 fl (35.1-43.9); Red Blood Count 3.64 M/mm3 (4.2-5.4); White Blood Count 9.6 K/mm3 (4.4-11.0)
[2021-07-06 08:37] LABS: Glucose Challenge Gest 1H 50g 160 mg/dL (70-140)
== END ==
PROVIDERS: PCP Family Medicine; Referring Provider Obstetrics & Gynecology; Visit Provider Obstetrics & Gynecology
DX: Z34.80 Encounter for supervision of other normal pregnancy, unspecified trimester (principal)
CPT/HCPCS: 36415; 82950; 85025

== ENCOUNTER 2021-07-22 06:47 | Outpatient (CLI) | payer OTHER, SELFPAY ==
[2021-07-22 07:45] LABS: Glucose GTT-Gestation. Fasting 98 mg/dL (<105)
[2021-07-22 08:58] LABS: Glucose GTT-Gestational 1 Hr 186 mg/dL (<190)
[2021-07-22 09:41] LABS: Glucose GTT-Gestational 2 Hr 162 mg/dL (<165)
[2021-07-22 10:59] LABS: Glucose GTT-Gestational 3 Hr 108 L (<145)
== END 2021-07-22 23:59 | disposition short-term general hospital (02) ==
LOC: LAB 06:50
PROVIDERS: PCP Family Medicine; Referring Provider Nurse Practitioner Women's Health; Visit Provider Nurse Practitioner Women's Health
DX: Z13.1 Encounter for screening for diabetes mellitus (principal)
CPT/HCPCS: 36415; 82951; 82952

== ENCOUNTER 2021-07-27 13:20 | Outpatient (CLI) | payer OTHER, SELFPAY ==
[2021-07-27 13:39] LABS: Absolute Lymphocyte Count 1.58 X10^3/uL (0.83-4.51); Absolute Neutrophil Count 7.5 X10^3/uL (2.0-7.7); Basophil# 0.02 X10^3/uL; Basophil% 0.2 % (0-1); Eosinophil# 0.05 X10^3/uL; Eosinophils% 0.5 % (0-5); Hematocrit 32.5 % (37-47); Hemoglobin 10.8 g/dL (12.0-15.0); Lymphocyte # 1.58 X10^3/ul (0.83-4.51); Lymphocyte % 16.5 % (19-41); Mean Corp Hgb Conc 33.2 g/dL (32-36); Mean Corpuscular Hgb 28.4 pg (27.0-32.0); Mean Corpuscular Volume 85.5 fL (81-99); Mean Platelet Vol. 10.9 fl (6.2-12.0); Monocyte# 0.45 X10^3/uL; Monocyte% 4.7 % (0-10); NRBC Flagged by Analyzer 0 % (0-5); Neutrophil # 7.46 X10^3/uL (2.7-7.7); Neutrophil % 77.8 % (47-70); Platelet Count 202 K/mm3 (150-450); RBC Distribution Width CV 15.1 % (11.6-14.6); White Blood Count 9.6 K/mm3 (4.4-11.0)
[2021-07-27 13:55] LABS: Protein, Urine (Random) 23.4 mg/dL (<11.9); Protein:Creat Ratio 215 mg/g CRE (0-200)
[2021-07-27 14:00] LABS: ALB/GLOB Ratio 0.5 RATIO (0.9-2.4); AST(SGOT) 14 U/L (15-37); Alanine Aminotransfer ALT/SGPT 19 U/L (13-56); Albumin, Serum 2.4 g/dL (3.2-5.0); Alkaline Phosphatase 86 U/L (45-117); Anion Gap 8 (5-15); BUN 5 mg/dL (7-18); BUN/Creat Ratio 11.3 RATIO (10-20); Calcium,Total 8.7 mg/dL (8.5-10.1); Chloride 104 mmol/L (98-107); Creatinine, Serum 0.44 mg/dL (0.55-1.02); EST Glomerular Filtration Rate 186 mL/min (>60); Est Glom Filt Rate - Afr Amer 225 mL/min (>60); Globulin 4.6 g/dL (2.2-4.2); Glucose 119 mg/dL (74-106); Potassium 3.7 mmol/L (3.5-5.1); Sodium Level 137 mmol/L (136-145)
== END 2021-07-27 23:59 | disposition short-term general hospital (02) ==
PROVIDERS: PCP Family Medicine; Referring Provider Obstetrics & Gynecology; Visit Provider Obstetrics & Gynecology
DX: O16.3 Unspecified maternal hypertension, third trimester (principal); Z3A.00 Weeks of gestation of pregnancy not specified
CPT/HCPCS: 36415; 80053; 82570; 84156; 85025

== ENCOUNTER 2021-07-28 15:21 | Outpatient (CLI) | payer OTHER, SELFPAY ==
[2021-07-28 15:53] LABS: ROM Internal Control Test YES-OK TO RESULT pt. (Internal QC); ROM Patient Test Negative (Negative)
== END 2021-07-28 23:59 | disposition short-term general hospital (02) ==
PROVIDERS: PCP Family Medicine; Visit Provider Nurse Practitioner Women's Health
DX: O26.899 Other specified pregnancy related conditions, unspecified trimester (principal); N89.8 Other specified noninflammatory disorders of vagina; Z3A.00 Weeks of gestation of pregnancy not specified
CPT/HCPCS: 84112

== ENCOUNTER 2021-07-31 14:23 | Outpatient (CLI) | payer OTHER, SELFPAY ==
--- NOTE | 2021-07-31 14:28 | US_ITS ---
STUDY: SECOND AND THIRD TRIMESTER OBSTETRICAL ULTRASOUND - LIMITED REASON FOR EXAM: Female, 26 years old. growth. History of gestational diabetes. LMP: 12/31/2020. PRIOR ULTRASOUND: None. TECHNIQUE: Transabdominal TECHNICAL QUALITY: Adequate. FINDINGS: There is a single intrauterine fetus. The fetus is in a cephalic presentation. There is demonstrated cardiac activity with a heart rate of 140 bpm. There is increased amniotic fluid volume consistent with polyhydramnios. The largest amniotic fluid pocket measures 6.7 cm. The amniotic fluid index (MAHENDRA) is 23.7. cm. The placenta is 3 There are Grade 1 placental changes. The cervix measures 4.7 cm in length. BIOMETRY: BPD: 7.88 cm: 31 weeks, 4 days HC: 28.85 cm: 31 weeks, 5 days AC: 27.65 cm: 31 weeks, 4 days FL: 5.92 cm: 30 weeks, 6 days Age by LMP: 30 weeks, 2 days. ANDREW by LMP: Arch 2021.. age by current US: 31 weeks, 2 days. ANDREW by current US: 09/30/2021. Estimated weight: 1787 grams, +/- 268 grams, 79 percentile. Gender: Indeterminant US/OB Limited With Biometrics IMPRESSION: 1. Live single intrauterine at 31 weeks, 2 days. ANDREW is 09/30/2021. There is adequate interval growth from the LMP. 2. EFW 1787 g. 3. Prominent amniotic fluid with an MAHENDRA of 23.77 cm. 4. Anterior grade 1 placenta. 5. VERTEX presentation. Electronically Signed: Carlos Russell DO at 16:03 EST Tel [phone], Service support ,
== END 2021-07-31 23:59 | disposition short-term general hospital (02) ==
LOC: US 14:24
PROVIDERS: PCP Family Medicine; Referring Provider Nurse Practitioner Women's Health; Visit Provider Nurse Practitioner Women's Health
DX: O24.410 Gestational diabetes mellitus in pregnancy, diet controlled (principal); Z3A.00 Weeks of gestation of pregnancy not specified
CPT/HCPCS: 76816

== ENCOUNTER 2021-08-18 22:10 | Outpatient (CLI) | payer OTHER, SELFPAY ==
[2021-08-18 22:20] VITALS: BMI 48.8
[2021-08-18 22:36] VITALS: BP 132/76; PULSE 76; TEMP 36.6; O2SAT 97
--- NOTE | 2021-08-20 11:10 | OB.TRI.PN_ITS ---
Progress Notes Date of Service: 08/18/21 Progress Note: Patient presents for triage evaluation secondary to dec movement FHT: 140 Moderate variability reactive no decelerations category I tracing [place]: no regular Contractions Assessment and plan: dec fm Reactive NST, reassuring maternal and status patient discharged to home to follow-up as scheduled. See problem list details for additional plan information. Charges/Coding Procedures Urinary/Genital [id number]: 53132-77 non-stress test Interp Assessment & Plan (1) Bipolar 1 disorder: COMMENT: celexa, buspirone, counseling (2) Hx of section: COMMENT: AoD at 6cm; wants repeat CS. scheduled 10/01 @ 7:30am SM (3) : QUALIFIERS: Weeks of gestation: 31 weeks Qualified Code(s): Z3A.31 - 31 weeks gestation of COMMENT: declines carrier and ntd screening, low risk NIPT. Anatomy normal but limited, follow-up 4 weeks to complete. FU nl (4) Supervision of other normal : COMMENT: PRR ANDREW: 10/07/21 PC: Shannon Gaines?: Andrzej DUQUE for NOB visit and urine/GCC labs at [facility] (5) Obesity affecting : QUALIFIERS: Trimester: first trimester Qualified Code(s): O99.211 - Obesity complicating , first trimester COMMENT: wkly NST starting @ 32 wks, gct at nob WNL, plan third trimester testing (6) Family history of congenital anomaly of cardiovascular system: COMMENT: maternal uncle from a heart condition 17 hours after (7) Anxiety with depression: COMMENT: celexa, counseling, vistaril; stable (8) Gestational diabetes: QUALIFIERS: Gestational diabetes mellitus control: diet-controlled Trimester: third trimester Qualified Code(s): O24.410 - Gestational diabetes mellitus in , diet controlled COMMENT: Dr Foster management. wkly NST at 32 week, growth US q4wk at 32 wk, 07/31 nl growth (9) Decreased movements in third trimester: COMMENT: reactive NST triage 08/18
== END 2021-08-18 23:59 | disposition home or self-care (01) ==
LOC: WPOUT 22:19 → WP 22:20
PROVIDERS: PCP Family Medicine; Referring Provider Obstetrics & Gynecology; Visit Provider Obstetrics & Gynecology
DX: O36.8130 Decreased fetal movements, third trimester, not applicable or unspecified (principal); F31.9 Bipolar disorder, unspecified; O99.343 Other mental disorders complicating pregnancy, third trimester; Z3A.31 31 weeks gestation of pregnancy; O34.219 Maternal care for unspecified type scar from previous cesarean delivery; O24.410 Gestational diabetes mellitus in pregnancy, diet controlled; F41.8 Other specified anxiety disorders; O99.211 Obesity complicating pregnancy, first trimester; E66.9 Obesity, unspecified
CPT/HCPCS: 59025; 59050; 99218; G0378

== ENCOUNTER 2021-08-25 14:13 | Outpatient (CLI) | payer OTHER, SELFPAY ==
[2021-08-25 14:35] LABS: ROM Internal Control Test YES-OK TO RESULT pt. (Internal QC); ROM Patient Test Negative (Negative)
== END 2021-08-25 23:59 | disposition home or self-care (01) ==
PROVIDERS: PCP Family Medicine; Visit Provider Obstetrics & Gynecology
DX: N89.8 Other specified noninflammatory disorders of vagina (principal)
CPT/HCPCS: 84112

== ENCOUNTER 2021-08-31 08:55 | Outpatient (CLI) | payer OTHER, SELFPAY ==
[2021-08-31 09:14] VITALS: BP 123/67; PULSE 98; BMI 48.9
[2021-08-31 09:28] LABS: Mucous, Urine 0 SEEN /hpf (<or=2+); Red Blood Cells-Urine 0 SEEN /hpf (0-5); White Blood Cells 0 SEEN /hpf (0-5)
[2021-08-31 09:31] LABS: Color, Urine Yellow (Yellow); Glucose, Dipstick Normal (Normal); Ketone-Dipstick 5 mg/dl (Negative); Leukocyte Esterase-Dipstick 100 /ul (Negative); Nitrite-Dipstick Negative (Negative); Occult Blood-Urine Negative /ul (Negative); Protein-Dipstick 15 mg/dl (Negative); Urine Bilirubin Dipstick Negative (Negative); Urine Clarity Cloudy (Clear); Urine Urobilinogen Normal (Normal)
[2021-08-31 09:35] VITALS: TEMP 36.4
[2021-08-31 09:38] LABS: Bacteria 1+ /hpf (None Seen); Squamous Epithelial Cells - UA 5-10 SEEN /hpf (5-10)
[2021-08-31] MEDS: Lactated Ringers 1,000 ML 999 ML IV (11:00)
[2021-08-31 11:14] LABS: Absolute Lymphocyte Count 1.45 X10^3/uL (0.83-4.51); Absolute Neutrophil Count 7.5 X10^3/uL (2.0-7.7); Basophil# 0.02 X10^3/uL; Basophil% 0.2 % (0-1); Eosinophil# 0.06 X10^3/uL; Eosinophils% 0.6 % (0-5); Hemoglobin 10.6 g/dL (12.0-15.0); Lymphocyte # 1.45 X10^3/ul (0.83-4.51); Lymphocyte % 15.2 % (19-41); Mean Corp Hgb Conc 33.1 g/dL (32-36); Mean Corpuscular Hgb 28.9 pg (27.0-32.0); Mean Corpuscular Volume 87.2 fL (81-99); Mean Platelet Vol. 11.5 fl (6.2-12.0); Monocyte% 5.3 % (0-10); NRBC Flagged by Analyzer 0 % (0-5); Neutrophil # 7.45 X10^3/uL (2.7-7.7); Neutrophil % 78.3 % (47-70); Platelet Count 165 K/mm3 (150-450); RBC Distribution Width CV 14.7 % (11.6-14.6); RBC Distribution Width SD 47.3 fl (35.1-43.9); Red Blood Count 3.67 M/mm3 (4.2-5.4); White Blood Count 9.5 K/mm3 (4.4-11.0)
[2021-08-31 11:30] LABS: ALB/GLOB Ratio 0.5 RATIO (0.9-2.4); AST(SGOT) 10 U/L (15-37); Alanine Aminotransfer ALT/SGPT 15 U/L (13-56); Albumin, Serum 2.2 g/dL (3.2-5.0); Alkaline Phosphatase 106 U/L (45-117); Anion Gap 5 (5-15); BUN 4 mg/dL (7-18); BUN/Creat Ratio 9.2 RATIO (10-20); Calcium,Total 8.3 mg/dL (8.5-10.1); Chloride 107 mmol/L (98-107); Creatinine, Serum 0.44 mg/dL (0.55-1.02); EST Glomerular Filtration Rate 188 mL/min (>60); Est Glom Filt Rate - Afr Amer 228 mL/min (>60); Estimated Creatinine Clearance 170.25 ml/min; Globulin 4.4 g/dL (2.2-4.2); Glucose 97 mg/dL (74-106); Lipase 43 U/L (73-393); Protein, Total 6.6 g/dL (6.4-8.2); Sodium Level 136 mmol/L (136-145)
[2021-08-31] MEDS: Acetaminophen 500 MG Tablet 1000 MG PO (11:32)
[2021-08-31 11:34] LABS: Fibrinogen 591 mg/dl (203-444)
[2021-08-31] MEDS: cycloBENZAPRine HCl 10 MG Tablet PO (11:49)
[2021-08-31] MEDS: Cephalexin 500 MG Capsule PO (11:49)
--- NOTE | 2021-08-31 12:01 | OB.TRI.PN ---
Progress Notes Progress Note: Patient presents for triage evaluation secondary to abdominal pain FHT: 130 Moderate variability reactive no decelerations category I tracing [place]: no regular Contractions Assessment and plan: abdominal pain likely GI, tylenol and flexeril given, cervix closed. labs checked and WNL. possible uti keflex given. dc home with prescriptions Reactive NST, reassuring maternal and status patient discharged to home to follow-up as schedule. See problem list details for additional plan information. Laboratory Studies: Laboratory Tests 08/31/21 08/31/21 08/31/21 Range/Units 11:00 11:00 11:00 WBC 9.5 (4.4-11.0) K/mm3 RBC 3.67 L (4.2-5.4) M/mm3 Hgb 10.6 L (12.0-15.0) g/dL Hct 32.0 L (37-47) % MCV 87.2 (81-99) fL MCH 28.9 (27.0-32.0) pg MCHC 33.1 (32-36) g/dL RDW Std Deviation 47.3 H (35.1-43.9) fl RDW Coeff of Juliann 14.7 H (11.6-14.6) % Plt Count 165 (150-450) K/mm3 MPV 11.5 (6.2-12.0) fl Immature Gran % (Auto) 0.400 (0.0-0.9) % Neut % (Auto) 78.3 H (47-70) % Lymph % (Auto) 15.2 L (19-41) % [place] % (Auto) 5.3 (0-10) % Eos % (Auto) 0.6 (0-5) % Baso % (Auto) 0.2 (0-1) % Absolute Neuts (auto) 7.5 (2.0-7.7) X10^3/uL Absolute Lymphs (auto) 1.45 (0.83-4.51) X10^3/uL Nucleated RBC % 0 (0-5) % Fibrinogen 591 H (203-444) mg/dl Sodium 136 (136-145) mmol/L Potassium 4.0 (3.5-5.1) mmol/L Chloride 107 (98-107) mmol/L Carbon Dioxide 24.0 (21.0-32.0) mmol/L Anion Gap 5 (5-15) BUN 4 L (7-18) mg/dL Creatinine 0.44 L (0.55-1.02) mg/dL Estim Creat Clear Calc 170.25 ml/min Est GFR (MDRD) Af Amer 228 (>60) mL/min Est GFR (MDRD) Non-Af 188 (>60) mL/min BUN/Creatinine Ratio 9.2 L (10-20) RATIO Glucose 97 (74-106) mg/dL Calcium 8.3 L (8.5-10.1) mg/dL Total Bilirubin 0.20 (0.20-1.00) mg/dL AST 10 L (15-37) U/L ALT 15 (13-56) U/L Alkaline Phosphatase 106 (45-117) U/L Total Protein 6.6 (6.4-8.2) g/dL Albumin 2.2 L (3.2-5.0) g/dL Globulin 4.4 H (2.2-4.2) g/dL Albumin/Globulin Ratio 0.5 L (0.9-2.4) RATIO Lipase 43 L (73-393) U/L Urine Color (Yellow) Urine Clarity (Clear) Urine pH (5.0 - 8.0) Ur Specific [place] (1.002-1.030) Urine Protein (Negative) mg/dl Urine Glucose (UA) (Normal) mg/dl Urine Ketones (Negative) mg/dl Urine Occult Blood (Negative) /ul Urine Nitrite (Negative) Urine Bilirubin (Negative) mg/dL Urine Urobilinogen (Normal) mg/dl Ur Leukocyte Esterase (Negative) /ul Urine RBC (0-5) /hpf Urine WBC (0-5) /hpf Ur Squamous Epith Cells (5-10) /hpf Urine Bacteria (None Seen) /hpf Urine Mucus (<or=2+) /hpf 08/31/21 Range/Units 09:10 WBC (4.4-11.0) K/mm3 RBC (4.2-5.4) M/mm3 Hgb (12.0-15.0) g/dL Hct (37-47) % MCV (81-99) fL MCH (27.0-32.0) pg MCHC (32-36) g/dL RDW Std Deviation (35.1-43.9) fl RDW Coeff of Juliann (11.6-14.6) % Plt Count (150-450) K/mm3 MPV (6.2-12.0) fl Immature Gran % (Auto) (0.0-0.9) % Neut % (Auto) (47-70) % Lymph % (Auto) (19-41) % [place] % (Auto) (0-10) % Eos % (Auto) (0-5) % Baso % (Auto) (0-1) % Absolute Neuts (auto) (2.0-7.7) X10^3/uL Absolute Lymphs (auto) (0.83-4.51) X10^3/uL Nucleated RBC % (0-5) % Fibrinogen (203-444) mg/dl Sodium (136-145) mmol/L Potassium (3.5-5.1) mmol/L Chloride (98-107) mmol/L Carbon Dioxide (21.0-32.0) mmol/L Anion Gap (5-15) BUN (7-18) mg/dL Creatinine (0.55-1.02) mg/dL Estim Creat Clear Calc ml/min Est GFR (MDRD) Af Amer (>60) mL/min Est GFR (MDRD) Non-Af (>60) mL/min BUN/Creatinine Ratio (10-20) RATIO Glucose (74-106) mg/dL Calcium (8.5-10.1) mg/dL Total Bilirubin (0.20-1.00) mg/dL AST (15-37) U/L ALT (13-56) U/L Alkaline Phosphatase (45-117) U/L Total Protein (6.4-8.2) g/dL Albumin (3.2-5.0) g/dL Globulin (2.2-4.2) g/dL Albumin/Globulin Ratio (0.9-2.4) RATIO Lipase (73-393) U/L Urine Color Yellow (Yellow) Urine Clarity Cloudy (Clear) Urine pH 7.0 (5.0 - 8.0) Ur Specific [place] 1.010 (1.002-1.030) Urine Protein 15 H (Negative) mg/dl Urine Glucose (UA) Normal (Normal) mg/dl Urine Ketones 5 H (Negative) mg/dl Urine Occult Blood Negative (Negative) /ul Urine Nitrite Negative (Negative) Urine Bilirubin Negative (Negative) mg/dL Urine Urobilinogen Normal (Normal) mg/dl Ur Leukocyte Esterase 100 H (Negative) /ul Urine RBC 0 SEEN (0-5) /hpf Urine WBC 0 SEEN (0-5) /hpf Ur Squamous Epith Cells 5-10 SEEN (5-10) /hpf Urine Bacteria 1+ (None Seen) /hpf Urine Mucus 0 SEEN (<or=2+) /hpf Charges/Coding Procedures Urinary/Genital 52xxx-59xxx: 66764-89 non-stress test Interp
== END 2021-08-31 23:59 | disposition home or self-care (01) ==
LOC: WPOUT 08:57 → WP 08:59
PROVIDERS: PCP Family Medicine; Referring Provider Obstetrics & Gynecology; Visit Provider Obstetrics & Gynecology
DX: O26.899 Other specified pregnancy related conditions, unspecified trimester (principal); R10.9 Unspecified abdominal pain; Z3A.00 Weeks of gestation of pregnancy not specified
CPT/HCPCS: 96360; 59025; 59050; 80053; 81001; 83690; 85025; 85384; 87086; 99218; J7120; G0378

== ENCOUNTER 2021-09-01 14:50 | Outpatient (CLI) | payer OTHER, SELFPAY ==
[2021-09-01 15:11] VITALS: BP 129/67; PULSE 87; TEMP 36.9
[2021-09-01 15:22] VITALS: BMI 49.0
[2021-09-01 15:25] VITALS: BP 123/60; PULSE 88
[2021-09-01 15:41] VITALS: BP 119/67; PULSE 106
[2021-09-01 15:46] LABS: Absolute Lymphocyte Count 1.69 X10^3/uL (0.83-4.51); Absolute Neutrophil Count 7.7 X10^3/uL (2.0-7.7); Basophil# 0.02 X10^3/uL; Basophil% 0.2 % (0-1); Eosinophil# 0.05 X10^3/uL; Eosinophils% 0.5 % (0-5); Hematocrit 33.3 % (37-47); Hemoglobin 11.1 g/dL (12.0-15.0); Lymphocyte # 1.69 X10^3/ul (0.83-4.51); Lymphocyte % 16.7 % (19-41); Mean Corp Hgb Conc 33.3 g/dL (32-36); Mean Corpuscular Hgb 29.4 pg (27.0-32.0); Mean Corpuscular Volume 88.3 fL (81-99); Mean Platelet Vol. 11.7 fl (6.2-12.0); Monocyte# 0.56 X10^3/uL; Monocyte% 5.6 % (0-10); NRBC Flagged by Analyzer 0 % (0-5); Neutrophil # 7.72 X10^3/uL (2.7-7.7); Neutrophil % 76.5 % (47-70); Platelet Count 176 K/mm3 (150-450); RBC Distribution Width CV 14.7 % (11.6-14.6); RBC Distribution Width SD 47.4 fl (35.1-43.9); Red Blood Count 3.77 M/mm3 (4.2-5.4); White Blood Count 10.1 K/mm3 (4.4-11.0)
[2021-09-01 15:55] VITALS: BP 116/56; PULSE 81
[2021-09-01 16:01] LABS: ALB/GLOB Ratio 0.5 RATIO (0.9-2.4); AST(SGOT) 12 U/L (15-37); Alanine Aminotransfer ALT/SGPT 16 U/L (13-56); Albumin, Serum 2.4 g/dL (3.2-5.0); Alkaline Phosphatase 107 U/L (45-117); Anion Gap 6 (5-15); BUN 6 mg/dL (7-18); BUN/Creat Ratio 13.1 RATIO (10-20); Calcium,Total 8.7 mg/dL (8.5-10.1); Chloride 106 mmol/L (98-107); Creatinine, Serum 0.46 mg/dL (0.55-1.02); EST Glomerular Filtration Rate 178 mL/min (>60); Est Glom Filt Rate - Afr Amer 216 mL/min (>60); Estimated Creatinine Clearance 162.84 ml/min; Globulin 4.4 g/dL (2.2-4.2); Glucose 100 mg/dL (74-106); Potassium 3.8 mmol/L (3.5-5.1); Protein, Total 6.8 g/dL (6.4-8.2); Sodium Level 136 mmol/L (136-145)
--- NOTE | 2021-09-01 16:06 | OB.TRI.PN_ITS ---
Progress Notes Progress Note: Patient presents for triage evaluation secondary to elevated blood pressure patient was seen in the office for NST already today and sent down due to elevated blood pressure FHT: 140 Assessment and plan: Elevated blood pressures?preeclampsia labs sent, reactive NST, reassuring maternal and status patient discharged to home to follow- up as scheduled. See problem list details for additional plan information. Laboratory Studies: Laboratory Tests 09/01/21 09/01/21 Range/Units 15:30 15:30 WBC 10.1 (4.4-11.0) K/mm3 RBC 3.77 L (4.2-5.4) M/mm3 Hgb 11.1 L (12.0-15.0) g/dL Hct 33.3 L (37-47) % MCV 88.3 (81-99) fL MCH 29.4 (27.0-32.0) pg MCHC 33.3 (32-36) g/dL RDW Std Deviation 47.4 H (35.1-43.9) fl RDW Coeff of Juliann 14.7 H (11.6-14.6) % Plt Count 176 (150-450) K/mm3 MPV 11.7 (6.2-12.0) fl Immature Gran % (Auto) 0.500 (0.0-0.9) % Neut % (Auto) 76.5 H (47-70) % Lymph % (Auto) 16.7 L (19-41) % [place] % (Auto) 5.6 (0-10) % Eos % (Auto) 0.5 (0-5) % Baso % (Auto) 0.2 (0-1) % Absolute Neuts (auto) 7.7 (2.0-7.7) X10^3/uL Absolute Lymphs (auto) 1.69 (0.83-4.51) X10^3/uL Nucleated RBC % 0 (0-5) % Sodium 136 (136-145) mmol/L Potassium 3.8 (3.5-5.1) mmol/L Chloride 106 (98-107) mmol/L Carbon Dioxide 24.0 (21.0-32.0) mmol/L Anion Gap 6 (5-15) BUN 6 L (7-18) mg/dL Creatinine 0.46 L (0.55-1.02) mg/dL Estim Creat Clear Calc 162.84 ml/min Est GFR (MDRD) Af Amer 216 (>60) mL/min Est GFR (MDRD) Non-Af 178 (>60) mL/min BUN/Creatinine Ratio 13.1 (10-20) RATIO Glucose 100 (74-106) mg/dL Calcium 8.7 (8.5-10.1) mg/dL Total Bilirubin 0.20 (0.20-1.00) mg/dL AST 12 L (15-37) U/L ALT 16 (13-56) U/L Alkaline Phosphatase 107 (45-117) U/L Total Protein 6.8 (6.4-8.2) g/dL Albumin 2.4 L (3.2-5.0) g/dL Globulin 4.4 H (2.2-4.2) g/dL Albumin/Globulin Ratio 0.5 L (0.9-2.4) RATIO
[2021-09-01 16:11] VITALS: BP 118/69; PULSE 78
[2021-09-01 16:13] LABS: Protein, Urine (Random) 31.4 mg/dL (<11.9); Protein:Creat Ratio 249 mg/g CRE (0-200)
== END 2021-09-01 23:59 | disposition home or self-care (01) ==
LOC: WPOUT 14:55 → WP 14:56
PROVIDERS: PCP Family Medicine; Visit Provider Obstetrics & Gynecology
DX: O26.899 Other specified pregnancy related conditions, unspecified trimester (principal); R03.0 Elevated blood-pressure reading, without diagnosis of hypertension; Z3A.00 Weeks of gestation of pregnancy not specified
CPT/HCPCS: 36415; 59050; 80053; 82570; 84156; 85025; 99218; G0378

== ENCOUNTER 2021-09-04 07:58 | Outpatient (CLI) | payer OTHER, SELFPAY ==
--- NOTE | 2021-09-04 08:00 | US_ITS ---
STUDY: SECOND AND THIRD TRIMESTER OBSTETRICAL ULTRASOUND REASON FOR EXAM: Female, 26 years old growth LMP: 12/31/2020. TECHNIQUE: Transabdominal TECHNICAL QUALITY: Limited. Examination limited due to obesity. PRIOR ULTRASOUND: Comparison is made with prior study dated 07/31/2021. FINDINGS: There is a single intrauterine fetus. The fetus is in a cephalic presentation. There is demonstrated cardiac activity with a heart rate of 148 bpm. There is a normal amniotic fluid volume. The largest amniotic fluid pocket measures 5.8 cm. The amniotic fluid index (MAHENDRA) is 14.7 cm. The placenta is anterior in location and is not low lying. There are Grade 2 placental changes. The cervix measures 3.2 cm in length. The adnexal regions are not visualized. BIOMETRY: BPD: 9 cm: 36 weeks, 2 days HC: 33.3 cm: 38 weeks, 0 days AC: 34.1 cm: 37 weeks, 6 days FL: 6.8 cm: 35 weeks, 0 days CI: 77% FL/BPD: 76% FL/HC: FL/AC: 20% HC/AC: 0.98 age by current US: 36 weeks, 5 days. ANDREW by current US: 09/27/2021. Estimated weight: 3117 grams, +/- 468 grams, 90 %. age by prior US: 36 weeks, 2 days. ANDREW by prior US: 09/30/2021. Age by LMP: 35 weeks, 2 days. ANDREW by LMP: 10/07/2021. US/OB Limited With Biometrics IMPRESSION: Single live uterine gestation with a mean gestational age of 36 weeks and 2 days. The measurements obtained today fall within normal expected range. Electronically Signed: Sergio Brown MD at 12:58 EST ,
== END 2021-09-04 23:59 | disposition home or self-care (01) ==
LOC: OPUS 07:59
PROVIDERS: PCP Family Medicine; Referring Provider Nurse Practitioner Women's Health; Visit Provider Nurse Practitioner Women's Health
DX: O24.410 Gestational diabetes mellitus in pregnancy, diet controlled (principal); Z3A.36 36 weeks gestation of pregnancy
CPT/HCPCS: 76816

== ENCOUNTER 2021-09-11 16:53 | Outpatient (CLI) | payer OTHER, SELFPAY ==
--- NOTE | 2021-09-11 16:56 | US_ITS ---
HISTORY: nonreactive NST EXAMINATION: US Biophysical Profile W/O Nonst TECHNIQUE: Transabdominal pelvic ultrasound was performed. COMPARISON: September 04, 2021 LMP: 12/31/20. Beta-hCG: Unknown. Provided EGA: 36 weeks 2 days. FINDINGS: Single viable intrauterine in cephalic position. Regular heart rate at 145 bpm. Amniotic fluid index is 19.5 cm. BIOPHYSICAL PROFILE (BPP): 02/22. -- breathin/2. -- movement: 2/2. -- tone: 2/2. --MAHENDRA: 2/2. US/Biophysical Prof W/O Non Stres IMPRESSION: Single viable intrauterine in cephalic position. Biophysical profile: 02/22 at 2055 Reported and signed by: Checo Davis MD Electronically Signed: Checo Davis MD at 20:54 EST ,
== END 2021-09-11 23:59 | disposition home or self-care (01) ==
LOC: US 16:55
PROVIDERS: PCP Family Medicine; Visit Provider Obstetrics & Gynecology
DX: O28.8 Other abnormal findings on antenatal screening of mother (principal); Z3A.00 Weeks of gestation of pregnancy not specified
CPT/HCPCS: 76819

== ENCOUNTER 2021-09-14 15:25 | Outpatient (CLI) | payer OTHER, SELFPAY ==
[2021-09-14 15:41] VITALS: BP 127/81; PULSE 104; TEMP 36.9; O2SAT 99
[2021-09-14 15:42] VITALS: BP 127/81; PULSE 104
[2021-09-14 15:47] VITALS: BMI 49.6
--- NOTE | 2021-09-14 16:06 | US_ITS ---
STUDY: OBSTETRICAL ULTRASOUND - BIOPHYSICAL PROFILE REASON FOR EXAM: Female, 26 years old. fall pain PRIOR ULTRASOUND: 10/09/21. TECHNIQUE: Transabdominal TECHNICAL QUALITY: Adequate. FINDINGS: There is a single intrauterine fetus. The fetus is in a cephalic presentation. There is demonstrated cardiac activity with a heart rate of 141 bpm. There is a normal amniotic fluid volume. The largest amniotic fluid pocket measures 8.2 cm. The amniotic fluid index (MAHENDRA) is 19.6 cm. The placenta is anterior in location and is not low lying. There are Grade 2 placental changes. Age by LMP: 36 weeks, 5 days. ANDREW by LMP: 3.23.22. BIOPHYSICAL PROFILE: Breathing Movements (FBM): 2 Gross Body Movements (GBM): 2 Tone (FT): 2 Amniotic Fluid Volume (AFV): 2 TOTAL SCORE: 8 / 8 US/Biophysical Prof W/O Non Stres IMPRESSION: Normal biophysical profile of 8/8. There is a single live intrauterine with a heart rate of 141 bpm. Electronically Signed: Bean Howe MD at 17:42 EST Reading Location ID and State: [facility] / [place] , Service support ,
--- NOTE | 2021-09-15 07:29 | OB.TRI.PN_ITS ---
Progress Notes Progress Note: Patient presents for triage evaluation secondary to fall FHT: 140 Moderate variability reactive no decelerations category I tracing [place]: no regular Contractions Assessment and plan: reassuring status 02/22 bpp Reactive NST, reassuring maternal and status patient discharged to home to follow-up as scheduled. See problem list details for additional plan information. Charges/Coding Procedures Urinary/Genital 52xxx-59xxx: 76705-47 non-stress test Interp Assessment & Plan (1) Fall:
== END 2021-09-14 23:59 | disposition home or self-care (01) ==
LOC: WPOUT 15:32 → WP 15:33
PROVIDERS: PCP Family Medicine; Referring Provider Obstetrics & Gynecology; Visit Provider Obstetrics & Gynecology
DX: Z34.90 Encounter for supervision of normal pregnancy, unspecified, unspecified trimester (principal); W19.XXXA Unspecified fall, initial encounter; Y93.9 Activity, unspecified; Y92.9 Unspecified place or not applicable
CPT/HCPCS: 59025; 59050; 76819; 99218; G0378

== ENCOUNTER 2021-09-17 12:08 | Outpatient (CLI) | payer OTHER, SELFPAY ==
[2021-09-17 12:32] LABS: Absolute Neutrophil Count 6.8 X10^3/uL (2.0-7.7); Basophil% 0.2 % (0-1); Eosinophil# 0.04 X10^3/uL; Eosinophils% 0.5 % (0-5); Hematocrit 34.8 % (37-47); Hemoglobin 11.5 g/dL (12.0-15.0); Mean Corpuscular Hgb 28.6 pg (27.0-32.0); Mean Corpuscular Volume 86.6 fL (81-99); Mean Platelet Vol. 11.6 fl (6.2-12.0); Monocyte# 0.52 X10^3/uL; Monocyte% 5.9 % (0-10); Neutrophil # 6.75 X10^3/uL (2.7-7.7); Neutrophil % 76.9 % (47-70); Platelet Count 160 K/mm3 (150-450); RBC Distribution Width CV 14.5 % (11.6-14.6); RBC Distribution Width SD 45.6 fl (35.1-43.9); Red Blood Count 4.02 M/mm3 (4.2-5.4); White Blood Count 8.8 K/mm3 (4.4-11.0)
[2021-09-17 12:33] LABS: Basophil# 0.02 X10^3/uL; NRBC Flagged by Analyzer 0 % (0-5)
[2021-09-17 13:00] LABS: ALB/GLOB Ratio 0.4 RATIO (0.9-2.4); AST(SGOT) 18 U/L (15-37); Alanine Aminotransfer ALT/SGPT 17 U/L (13-56); Albumin, Serum 2.2 g/dL (3.2-5.0); Alkaline Phosphatase 129 U/L (45-117); Anion Gap 7 (5-15); BUN 6 mg/dL (7-18); BUN/Creat Ratio 9.9 RATIO (10-20); Calcium,Total 8.7 mg/dL (8.5-10.1); Chloride 106 mmol/L (98-107); EST Glomerular Filtration Rate 129 mL/min (>60); Est Glom Filt Rate - Afr Amer 156 mL/min (>60); Globulin 4.9 g/dL (2.2-4.2); Glucose 105 mg/dL (74-106); Potassium 4.1 mmol/L (3.5-5.1); Protein, Total 7.1 g/dL (6.4-8.2); Sodium Level 136 mmol/L (136-145)
== END 2021-09-17 23:59 | disposition home or self-care (01) ==
LOC: LAB 12:09
PROVIDERS: PCP Family Medicine; Referring Provider Obstetrics & Gynecology; Visit Provider Obstetrics & Gynecology
DX: O26.899 Other specified pregnancy related conditions, unspecified trimester (principal); R51.9 Headache, unspecified
CPT/HCPCS: 36415; 80053; 85025

== ENCOUNTER 2021-09-18 08:19 | Outpatient (CLI) | payer OTHER, SELFPAY ==
--- NOTE | 2021-09-18 08:10 | US_ITS ---
History: well being Biophysical profile: Findings: Biophysical profile score is 8/8. Single fetus identified in cephalic presentation with a cardiac rate of 137 bpm. Anterior placenta noted with grade 1 maturity change. Amniotic fluid index is normal measuring 17 cm. IMPRESSION: Normal biophysical profile score. at 1619 Reported and signed by: Logan Navarrete MD Electronically Signed: Logan Navarrete MD at 16:18 EST , US/Biophysical Prof W/O Non Stres
== END 2021-09-18 23:59 | disposition home or self-care (01) ==
LOC: OPUS 08:20
PROVIDERS: PCP Family Medicine; Visit Provider Obstetrics & Gynecology
DX: Z34.90 Encounter for supervision of normal pregnancy, unspecified, unspecified trimester (principal)
CPT/HCPCS: 76819

== ENCOUNTER 2021-09-21 13:26 | Outpatient (CLI) | payer OTHER, SELFPAY ==
--- NOTE | 2021-09-21 13:27 | US_ITS ---
STUDY: OBSTETRICAL ULTRASOUND - BIOPHYSICAL PROFILE REASON FOR EXAM: Female, 26 years old well being LMP: 12/31/2020. PRIOR ULTRASOUND: Comparison is made with prior study 09/18/2021. TECHNIQUE: Transabdominal TECHNICAL QUALITY: Adequate. FINDINGS: There is a single intrauterine fetus. The fetus is in a cephalic presentation. There is demonstrated cardiac activity with a heart rate of 135 bpm. There is increased amniotic fluid consistent with polyhydramnios. The largest amniotic fluid pocket measures 8.7 cm. The amniotic fluid index (MAHENDRA) is 8.7 cm. The placenta is anterior in location and is not low lying. There are Grade 2 placental changes. Age by LMP: 37 weeks, 5 days. ANDREW by LMP: 10/07/2021. BIOPHYSICAL PROFILE: Breathing Movements (FBM): 2 Gross Body Movements (GBM): 2 Tone (FT): 2 Amniotic Fluid Volume (AFV): 2 TOTAL SCORE: / 8 US/Biophysical Prof W/O Non Stres IMPRESSION: Normal biophysical profile of 02/22. Electronically Signed: Sergio Brown MD at 15:39 EST ,
== END 2021-09-21 23:59 | disposition home or self-care (01) ==
LOC: OPUS 13:27
PROVIDERS: PCP Family Medicine; Visit Provider Obstetrics & Gynecology
DX: O24.410 Gestational diabetes mellitus in pregnancy, diet controlled (principal); Z3A.00 Weeks of gestation of pregnancy not specified
CPT/HCPCS: 76819

== ENCOUNTER 2021-09-22 13:20 | Outpatient (CLI) | payer OTHER, SELFPAY ==
[2021-09-22 13:29] VITALS: BMI 52.3
[2021-09-22 13:39] VITALS: BP 133/65; PULSE 85
--- NOTE | 2021-09-22 14:07 | US_ITS ---
STUDY: SECOND AND THIRD TRIMESTER OBSTETRICAL ULTRASOUND - LIMITED REASON FOR EXAM: Female, 26 years old MAHENDRA LMP: 12/31/2020. PRIOR ULTRASOUND: Comparison is made with prior study of 09/21/2021. TECHNIQUE: Transabdominal TECHNICAL QUALITY: Adequate. FINDINGS: There is a single intrauterine fetus. The fetus is in a cephalic presentation. There is demonstrated cardiac activity with a heart rate of 154 bpm. There is a normal amniotic fluid volume. The largest amniotic fluid pocket measures 6.8 cm. The amniotic fluid index (MAHENDRA) is 14.8 cm. The placenta is anterior in location and is not low lying. There are Grade 2 placental changes. US/OB Limited (No Biometrics) IMPRESSION: Normal amniotic fluid index. Electronically Signed: Sergio Brown MD at 15:01 EST ,
[2021-09-22 14:10] LABS: ROM Internal Control Test YES-OK TO RESULT pt. (Internal QC)
[2021-09-22 14:15] LABS: ROM Patient Test Negative (Negative)
--- NOTE | 2021-09-26 01:20 | OB.TRI.PN ---
Progress Notes Date of Service: 09/22/21 Progress Note: Patient presents for triage evaluation secondary to increased discharge FHT: 140 Moderate variability reactive no decelerations category I tracing [place]: No regular contractions Assessment and plan: Amniotic membranes intact reactive NST, reassuring maternal and status patient discharged to home to follow-up as scheduled. See problem list details for additional plan information. Laboratory Studies: Laboratory Tests 09/22/21 Range/Units 13:35 Vag Amniotic Fld Detect Negative (Negative) Charges/Coding Procedures Urinary/Genital 52xxx-59xxx: 67761-80 non-stress test Interp
== END 2021-09-22 23:59 | disposition home or self-care (01) ==
LOC: WPOUT 13:25 → WP 13:26
PROVIDERS: PCP Family Medicine; Referring Provider Obstetrics & Gynecology; Visit Provider Obstetrics & Gynecology
DX: O99.891 Other specified diseases and conditions complicating pregnancy (principal); N89.8 Other specified noninflammatory disorders of vagina; Z3A.00 Weeks of gestation of pregnancy not specified
CPT/HCPCS: 59025; 59050; 76815; 84112; 99218; G0378

== ENCOUNTER 2021-09-25 13:30 | Outpatient (CLI) | payer OTHER, SELFPAY ==
--- NOTE | 2021-09-25 13:31 | US_ITS ---
STUDY: OBSTETRICAL ULTRASOUND - BIOPHYSICAL PROFILE REASON FOR EXAM: Female, 26 years old wellbeing, check overall MAHENDRA LMP: 12/31/2020. PRIOR ULTRASOUND: Comparison is made with prior study dated 09/22/2021. TECHNIQUE: Transabdominal TECHNICAL QUALITY: Adequate. FINDINGS: There is a single intrauterine fetus. The fetus is in a cephalic presentation. There is demonstrated cardiac activity with a heart rate of 139 bpm. There is a normal amniotic fluid volume. The largest amniotic fluid pocket measures 7.9 cm. The amniotic fluid index (MAHENDRA) is 19.76 cm. The placenta is anterior in location and is not low lying. There are Grade 2 placental changes. Age by LMP: 38 weeks, 2 days. ANDREW by LMP: 10/07/2021. age by prior US: 39 weeks, 5 days. ANDREW by prior US: 09/27/2021. BIOPHYSICAL PROFILE: Breathing Movements (FBM): 2 Gross Body Movements (GBM): 2 Tone (FT): 2 Amniotic Fluid Volume (AFV): 2 TOTAL SCORE: 8 / 8 US/Biophysical Prof W/O Non Stres IMPRESSION: Normal biophysical profile of 8/8. Electronically Signed: Sergio Brown MD at 14:50 EST ,
== END 2021-09-25 23:59 | disposition home or self-care (01) ==
LOC: US 13:30
PROVIDERS: PCP Family Medicine; Referring Provider Obstetrics & Gynecology; Visit Provider Obstetrics & Gynecology
DX: O24.410 Gestational diabetes mellitus in pregnancy, diet controlled (principal); Z3A.00 Weeks of gestation of pregnancy not specified
CPT/HCPCS: 76819

== ENCOUNTER 2021-09-26 22:20 | Outpatient (CLI) | payer OTHER, SELFPAY ==
[2021-09-26 22:27] VITALS: BMI 51.3
[2021-09-26 22:51] VITALS: BP 125/72; PULSE 85; TEMP 36.2; O2SAT 98; O2SAT 99
[2021-09-26 23:07] VITALS: BP 126/73; PULSE 93
[2021-09-26 23:09] LABS: Mucous, Urine 0 SEEN /hpf (<or=2+); Red Blood Cells-Urine 0 SEEN /hpf (0-5); White Blood Cells 0 SEEN /hpf (0-5)
[2021-09-26 23:11] LABS: Color, Urine Yellow (Yellow); Glucose, Dipstick Normal (Normal); Ketone-Dipstick Negative (Negative); Leukocyte Esterase-Dipstick Negative /ul (Negative); Nitrite-Dipstick Negative (Negative); Occult Blood-Urine Negative /ul (Negative); Protein-Dipstick 30 mg/dl (Negative); Urine Bilirubin Dipstick Negative (Negative); Urine Clarity Sl. Cloudy (Clear); Urine Urobilinogen Normal (Normal)
[2021-09-26 23:16] LABS: Bacteria RARE /hpf (None Seen); Squamous Epithelial Cells - UA 0-5 SEEN /hpf (5-10)
[2021-09-26 23:22] VITALS: BP 139/73; PULSE 89
[2021-09-26 23:24] VITALS: BP 129/69; PULSE 96
[2021-09-26 23:38] VITALS: BP 132/101; PULSE 88
[2021-09-26] MEDS: Acetaminophen 500 MG Tablet 1000 MG PO (23:42)
[2021-09-26 23:52] VITALS: BP 108/53; PULSE 81
--- NOTE | 2021-09-27 07:31 | OB.TRI.PN ---
Progress Notes Date of Service: 09/26/21 Progress Note: Patient presents for triage evaluation secondary to elevated bp at home FHT: 140 Moderate variability reactive no decelerations category I tracing [place]: no regular Contractions Assessment and plan: all nl bps here negative physical assessment tylenol given for mild [place] no neuro symptoms Reactive NST, reassuring maternal and status patient discharged to home to follow-up as scheduled. See problem list details for additional plan information. Laboratory Studies: Laboratory Tests 09/26/21 Range/Units 23:00 Urine Color Yellow (Yellow) Urine Clarity Sl. Cloudy (Clear) Urine pH 7.0 (5.0 - 8.0) Ur Specific [place] 1.010 (1.002-1.030) Urine Protein 30 H (Negative) mg/dl Urine Glucose (UA) Normal (Normal) mg/dl Urine Ketones Negative (Negative) mg/dl Urine Occult Blood Negative (Negative) /ul Urine Nitrite Negative (Negative) Urine Bilirubin Negative (Negative) mg/dL Urine Urobilinogen Normal (Normal) mg/dl Ur Leukocyte Esterase Negative (Negative) /ul Urine RBC 0 SEEN (0-5) /hpf Urine WBC 0 SEEN (0-5) /hpf Ur Squamous Epith Cells 0-5 SEEN (5-10) /hpf Urine Bacteria RARE (None Seen) /hpf Urine Mucus 0 SEEN (<or=2+) /hpf Charges/Coding Procedures Urinary/Genital 52xxx-59xxx: 31541-23 non-stress test Interp
== END 2021-09-26 23:59 | disposition home or self-care (01) ==
LOC: WPOUT 22:26 → WP 22:26
PROVIDERS: PCP Family Medicine; Referring Provider Obstetrics & Gynecology; Visit Provider Obstetrics & Gynecology
DX: O26.899 Other specified pregnancy related conditions, unspecified trimester (principal); R03.0 Elevated blood-pressure reading, without diagnosis of hypertension; Z3A.00 Weeks of gestation of pregnancy not specified
CPT/HCPCS: 59025; 59050; 81001; 99218; G0378

== ENCOUNTER 2021-09-28 08:53 | Outpatient (CLI) | payer OTHER, SELFPAY ==
--- NOTE | 2021-09-28 08:58 | US_ITS ---
History: well-being Biophysical profile: Findings: Biophysical profile score is 8/8. Single live fetus noted in cephalic presentation with cardiac rate of 130 bpm. Anterior placenta noted with grade 1-2 maturity change. Amniotic fluid index is normal measuring 18.3 cm. IMPRESSION: Normal biophysical profile. at 1049 Reported and signed by: Logan Navarrete MD Electronically Signed: Logan Navarrete MD at 10:48 EDT , US/Biophysical Prof W/O Norah Thompson
== END 2021-09-28 23:59 | disposition home or self-care (01) ==
LOC: US 08:53
PROVIDERS: PCP Family Medicine; Visit Provider Obstetrics & Gynecology
DX: O24.410 Gestational diabetes mellitus in pregnancy, diet controlled (principal); Z3A.36 36 weeks gestation of pregnancy
CPT/HCPCS: 76819

== ENCOUNTER 2021-10-01 05:30 | Inpatient (IN) | payer OTHER, SELFPAY ==
[2021-10-01] VITALS (15 sets, daily range): BP systolic 108–181; BP diastolic 63–97; PULSE 86–110; RESP 16–18; TEMP 36.1–36.6; O2SAT 95–100; BMI 49.8
[2021-10-01] MEDS: Lactated Ringers 1,000 ML 999 ML IV (06:00)
[2021-10-01 06:26] LABS: Absolute Lymphocyte Count 1.98 X10^3/uL (0.83-4.51); Absolute Neutrophil Count 6.4 X10^3/uL (2.0-7.7); Basophil# 0.02 X10^3/uL; Basophil% 0.2 % (0-1); Eosinophil# 0.04 X10^3/uL; Eosinophils% 0.4 % (0-5); Hematocrit 35.2 % (37-47); Hemoglobin 12.1 g/dL (12.0-15.0); Lymphocyte # 1.98 X10^3/ul (0.83-4.51); Lymphocyte % 22.2 % (19-41); Mean Corp Hgb Conc 34.4 g/dL (32-36); Mean Corpuscular Hgb 29.8 pg (27.0-32.0); Mean Corpuscular Volume 86.7 fL (81-99); Mean Platelet Vol. 12.3 fl (6.2-12.0); Monocyte# 0.49 X10^3/uL; Monocyte% 5.5 % (0-10); NRBC Flagged by Analyzer 0 % (0-5); Neutrophil # 6.36 X10^3/uL (2.7-7.7); Neutrophil % 71.3 % (47-70); Platelet Count 135 K/mm3 (150-450); RBC Distribution Width CV 14.5 % (11.6-14.6); RBC Distribution Width SD 45.7 fl (35.1-43.9); Red Blood Count 4.06 M/mm3 (4.2-5.4); White Blood Count 8.9 K/mm3 (4.4-11.0)
[2021-10-01] MEDS: Acetaminophen 500 MG Tablet 1000 MG PO ×3 (06:46→18:31)
[2021-10-01 06:56] LABS: Bedside Glucose 84 mg/dL (74-106)
[2021-10-01] MEDS: Lactated Ringers 1,000 ML 150 ML IV (07:10)
[2021-10-01] MEDS: Sodium Citrate/Citric Acid 30 ML UDC PO (07:16)
[2021-10-01] MEDS: Methylergonovine 0.2 MG/ML Ampul IM (08:12)
[2021-10-01] MEDS: Oxytocin 30 units/NS 500 ml 30 UNITS/500 ML IV.SOLN 167 UNITS IV (09:30)
[2021-10-01] MEDS: Ketorolac 30 MG/ML Syringe IV ×3 (09:45→22:53)
[2021-10-01] MEDS: HYDROmorphone 1 MG/ML Syringe IV ×3 (09:45→12:56)
[2021-10-01] MEDS: 0.9% Saline Lock 10 ML Syringe IV ×4 (09:45→22:58)
--- NOTE | 2021-10-01 09:52 | OP.PCM_ITS ---
Assessment & Plan (1) : QUALIFIERS: Weeks of gestation: 36 weeks Qualified Code(s): Z3A.36 - 36 weeks gestation of COMMENT: declines carrier and ntd screening, low risk NIPT. Anatomy normal but limited, follow-up 4 weeks to complete. FU nl (2) Supervision of other normal : COMMENT: PRR ANDREW: 10/07/21 esha astudillo PC: Shannon Gaines?: Andrzej ROR for NOB visit and urine/GCC labs at [facility] (3) Obesity affecting : QUALIFIERS: Trimester: first trimester Qualified Code(s): O99.211 - Obesity complicating , first trimester COMMENT: 2x wkly NST starting @ 32 wks, gct at nob WNL, plan third trimester testing (4) Family history of congenital anomaly of cardiovascular system: COMMENT: maternal uncle from a heart condition 17 hours after (5) Anxiety with depression: COMMENT: celexa, counseling, vistaril; stable (6) Anemia during : COMMENT: start FE (7) Gestational diabetes: QUALIFIERS: Gestational diabetes mellitus control: diet-controlled Trimester: third trimester Qualified Code(s): O24.410 - Gestational diabetes mellitus in , diet controlled COMMENT: Dr Foster management. wkly NST at 32 week, growth US q4wk at 32 wk, 1 nl growth (8) Lab test positive for detection of COVID-19 virus: COMMENT: 81mg asa, growth US @ 32, 36 wks (9) Hx of section: COMMENT: AoD at 6cm; wants repeat CS. scheduled 10/01 @ 7:30am SM (10) Bipolar 1 disorder: COMMENT: celexa, buspirone, counseling (11) Infertility: COMMENT: letrozole (12) delivery delivered: COMMENT: 39 rltcs gdma2 esha astudillo scar tissue spinal/general anesthesia Maternal Data Information ANDREW Calculator Estimated Delivery Date Method Current WG Current Estimate 10/07/21 LMP (Certain) 39w 1d Final ANDREW Source: LMP Details Operative Information Pre-Operative Diagnosis: Previous Post-Operative Diagnosis: same Indications for : Repeat Elective Classification: Scheduled Type of Anesthesia: Spinal Special Medications: none Antibiotic Given: Ancef 2 grams IV x1 Drain: Laguerre to straight drain Estimated Blood Loss: 800 Fluids Replaced: crystalloid Findings Description of Procedure: Spinal anesthesia was placed without difficulty. Laguerre catheter was placed. The patient was placed in the dorsal supine position with leftward tilt. Patient was prepped and draped in the normal sterile fashion. Pfannenstiel skin incision was made with the scalpel and carried through to the underlying layer of fascia with the scalpel. Fascia was nicked in the midline and the incision extended laterally. scar tissue encoutnered and limited mobility noted so patient put under general due to inadequate regional anesthesia. The rectus bellies were dissected off superiorly and inferiorly with out complication both sharply and bluntly. The peritoneum was entered digitally. The incision was stretched and a low transverse uterine incision was made with the scalpel. The 's head was delivered atraumatically followed by the anterior and posterior shoulders without complication the rest of the delivered. The cord was clamped and cut and the infant was handed off to awaiting nurse. The placenta was delivered spontaneously immediately following and was noted to be intact and have a three-vessel cord. The uterus was exteriorized cleared of all clots and debris, and the incision was closed in a double layer closure using #1 Monocryl. additional stitch on the right side and timo applied. The ovaries and fallopian tubes were noted to be within normal limits. The uterus was returned to the maternal abdomen and gutters were cleared of all clots and debris. The peritoneum was closed with 3-0 Monocryl in a running fashion. Gloves were changed prior to fascial closure. Fascia was closed with 0 PDS in a running fashion. Subcutaneous tissue was copiously irrigated and the skin was closed with 3-0 Monocryl in a subcuticular fashion. Mepilex dressing was applied without complication. Patient was taken to [facility] in stable condition. It was discussed with the patient that based on the clinical information obtained during this encounter, combined with her history, at this time I would recommend cesareans for future deliveries if further pregnancies are desired. Amniotic Membrane Rupture Type: Artificial Amniotic Fluid Description: Clear Placenta Disposition: [facility] Cord Vessel Description: 3 Vessels Cord Entanglement: None Delayed Cord Clamping: Yes Complications Risks of Surgery Discussed w/Patient: Bleeding, Infection, Need for Future C- Sections and Injury to surrounding structure(s) including bowel and bladder Vaginal Delivery Complication Complications: None Admit VTE Documentation VTE Present on Admission: No VTE Mechan Device Prophylaxis: SCD's Procedures Urinary/Genital 52xxx-59xxx: [id number] [facility]
--- NOTE | 2021-10-01 09:58 | PCM.HP.BLA ---
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 Is patient in pain?: No Allergies No Known Allergies Allergy (Verified 09/26/21 22:45) Medications prenat.vits,eddie,ayr-[id number] [ Vitamin] 1 tab PO DAILY 01/31/21 [History Confirmed 09/28/21] blood sugar diagnostic #100 ea 07/22/21 [Rx Confirmed 09/28/21] blood-glucose meter #1 ea 07/22/21 [Rx Confirmed 09/28/21] aspirin [Baby Aspirin] 81 mg PO DAILY 08/18/21 [History Confirmed 09/28/21] citalopram 40 mg PO DAILY 08/18/21 [History Confirmed 09/28/21] docusate sodium [Colace] 50 mg PO DAILY 08/18/21 [History Confirmed 09/28/21] cyclobenzaprine 10 mg tablet 10 mg PO TID PRN #30 tab 08/31/21 [Rx Confirmed 09/28/21] buspirone 10 mg tablet 10 mg PO TID PRN 30 Days #30 tab 09/25/21 [Rx Confirmed 09/28/21] metformin 1,000 mg PO BID 09/26/21 [History Confirmed 09/28/21] Last Menstral Period: 12/31/20 Zika: Zika virus screening: Negative : No PFSH PFSH Medical History Asthma Bipolar 1 disorder GERD (gastroesophageal reflux disease) Hemorrhoids Infertility Lab test positive for detection of COVID-19 virus LUIS (obstructive sleep apnea) Panic attacks Surgical History H/O oral surgery Hx of section Family History Father Brain tumor (benign) Depression Grandmother Hypertension Hyperlipemia Depression Mother Allergies Grandfather Asthma COPD (chronic obstructive pulmonary disease) Social History household members: family current occupational status: employed Smoking Status: Never smoker second hand exposure: No alcohol intake: never substance use type: does not use caffeine: Yes what type of physical activity do you participate in: aerobics frequency: 3-4 times per week seatbelt use: always do you feel safe at home: Yes additional social history: Fianc?-Andrzej Pregancy History 2 Elective abortions Hx Para 1 Spontaneous abortions Hx # Term Pregnancies Ectopic pregnancies Hx # Pregnancies Multiple births # of living children 1 Past Pregnancies Del. Date Name GA/Weeks Outcome Route Bth Weight Infant Gen Labor Lgth Anesthesia Del Locatn Provider FOB 04/12/17 Sondra 40 live - full term 8lbs 14oz Female 23 hours epidural [facility] RR Rui Delivery Date: 04/12/17 AoD- failed induction; thick meconium- initially clear thick MSF by delivery Christine Ascencio HPI est ob NO NST Details: CEDRIC PRITCHETT is a 26 year old who presents for routine OB visit. OB Visit ANDREW Calculator Estimated Delivery Date Method Current WG Current Estimate 10/07/21 LMP (Certain) 38w 5d Expected Delivery Route/Plan Plans repeat c section- scheduled 39 weeks Specific Issue/Plans Covid status: counseled regarding risk of covid in vs vaccination and declined vaccination Flu vaccine: declined Tdap vaccine: given Rhogam: na LARC form signed: yes movement and labor precautions reviewed. Problem list reviewed and updated with the most current plan of care details and appropriate orders placed. Relevant counseling for the gestational age provided. Continue routine care and follow up unless otherwise noted in visit notes/problem list details Initial Weight: 283 lb Date EGA Weight BP Urine Prot Glucose FHR FuHt Pres Dilation Effaced St Visit Note 03/18/21 11w 0d 283 lb 2 oz (+2 oz) 124/60 163 MH:US per GP: CRL 37mm. Consistent with LMP/ANDREW 10/07/21. 10w 6d. 04/15/21 15w 0d 284 lb 4 oz (+1 lb 4 oz) 118/88 Negative Negative 145 SM- no vb cramping 05/12/21 18w 6d 279 lb (-4 lb) 112/72 Negative Negative 150 SM- no vb cramping scheduled us 06/03/21 22w 0d 280 lb (-3 lb) 126/68 Negative Negative 156 0 MH-work in for pelvic pressure and vaginal irritation. UA dip neg. Urine, BV and comp vaginal cultures pending. No VB, LOF. Normal exam 06/10/21 23w 0d 284 lb (+16 oz) 120/80 147 JV- pt having panic attacks still. Buspirone ordered for acute attacks. GCT ordered .Planning for rpt section. 07/06/21 26w 5d 284 lb 2 oz (+1 lb 2 oz) 122/64 Trace Negative 142 28 MH-No Vb, LOF. Good FM. tdap and larc. 28 wk labs-anemia start FE. Abnormal glucose-order 3 hr GTT 07/28/21 29w 6d 280 lb 8 oz (-2 lb 8 oz) 136/70 Negative Negative 152 31 MH-No VB, LOF. Good FM. Larc done. Ordered 32 and 36 wk growth US. Has NST scheduled. Appt Dr Foster 08/11. States glucose readings qid WNL 08/06/21 31w 1d 283 lb (+0 oz) 120/82 145 33 SM- no vb lof good fm no regular ctx discussed testing and reviewed BS 08/11/21 31w 6d 282 lb (-16 oz) 102/64 Negative Negative 140 SM- no vb lof good fm no regular ctx 08/21/21 33w 2d 283 lb (+0 oz) 108/69 Negative Negative 140 33 SM- no vb lof good fm co intremittent he and back pain, seen in triage this week and normal evlatuion, nl bp today. 08/25/21 33w 6d 282 lb (-16 oz) 110/70 Negative Negative 140 34 SM- co spotting no regular ctx good fm no lof 09/01/21 34w 6d 285 lb (+2 lb) 144/90 Negative Negative 150 0 MH-Reactive NST. c/o headache. Note elevated BP. Consult JV and send to [facility]. 09/07/21 35w 5d 284 lb (+16 oz) 116/73 Negative Negative 140 37 0 Sm- no vb lof good fm no regular ctx 09/11/21 36w 2d 287 lb (+4 lb) 136/68 Trace 1000 g/dL 140 difficulty keeping on monitor- sent for BPP 09/14/21 36w 5d 288 lb (+5 lb) 119/74 Negative Negative 140 0 SM- BS controlled no vb lof good fm no regular ctx discussed twice weekly bpps until delivery 09/17/21 37w 1d 289 lb (+6 lb) 114/76 SM- co he and blurry vision- nl bps, ordered preeclampsia evaluation 09/21/21 37w 5d 294 lb 4 oz (+11 lb 4 oz) 128/64 140 0 SM- no vb lof good fm no regular ctx co hip pain back pain discomfort 09/28/21 38w 5d 292 lb (+9 lb) 110/74 Negative Negative SM- BPP done no vb lof good fm no regular ctx ACOG First Trimester First Trimester: Desire for , Intimate Partner Violence, Environmental/Work Hazards, Anticipated Course of Care, Toxoplasmosis Precations, Use of Any medications, Sexual activity, Exercise, Dental Care, Sauna/Hot tub use, Seat Belt use, Travel, Indications for Ultrasound and Screening for Aneuploidy; Discussed Alcohol, Discussed Tobacco Cessation, Discussed Illicit/Recreational Drug/Substance Use, Discussed Barriers to care, Discussed Unstable Housing, Discussed Communication Barriers, Discussed Childbirth classes/Hospital facilities and Discussed Second Trimester Second Trimester: Signs and Symptoms of Labor, Selecting a care provider, Reproductive Life Planning & Contreception, Care Planning, Depression/Anxiety and Intimate Partner Violence; Discussed Tobacco Cessation Third Trimester Third Trimester: Pain Management Plans, Labor support person(s), Immediate Larc, Circumcision preference, Movement Monitoring, Signs and Symptoms of Preeclampsia, [employer] and Family Medical Leave or Disability Forms Diagnostics Diagnostics Diagnostics: Hgb 11.5 g/dL (12.0-15.0) L Hct 34.8 % (37-47) L Details: HIV: Urine Culture: Sequential Screen: NIPT Screen: ROS Const Reports system reviewed and no additional complaints, except as documented Card Reports system reviewed and no additional complaints, except as documented Resp Reports system reviewed and no additional complaints, except as documented GI Reports system reviewed and no additional complaints, except as documented and Reports nausea Reports system reviewed and no additional complaints, except as documented Musc Reports system reviewed and no additional complaints, except as documented Exam Const General: cooperative, healthy appearing, comfortable and anxious HENMT Head: normal to inspection Nose: external nose normal Face and sinus: normal facial exam Neck Neck: normal visual inspection, full ROM and no lymphadenopathy Thyroid: thyroid normal Chest Chest palpation & inspection: normal inspection of the chest Resp Effort & Inspection: normal respiratory effort GI Inspection: normal to inspection Palpation: soft and other (gravid uterus) Other: vertex and appropriate size for gestational age Other: Cervical Exam: Extrem General: pedal edema Results POC Urinalysis 2 Dip (Clinic) Office Urine Glucose Negative Last Edit by Melissa Echeverria on 09/28/21 09:49 Office Urine Protein Negative Last Edit by Melissa Echeverria on 09/28/21 09:49 Coding Level of Care Code OB Routine Diagnoses Supervision of other normal Z34.80 Obesity affecting O99.211 Trimester: first trimester Family history of congenital anomaly of cardiovascular system Z82.79 Anxiety with depression F41.8 Anemia during O99.019 Gestational diabetes O24.410 Gestational diabetes mellitus control: diet-controlled Trimester: third trimester Infertility Lab test positive for detection of COVID-19 virus U07.1 Bipolar 1 disorder F31.9 Hx of section Z98.891 Z3A.36 Weeks of gestation: 36 weeks Assessment and Plan Assessment and Plan (1) Supervision of other normal : Status: Acute Comment: PRR ANDREW: 10/07/21 esha astudillo PC: Shannon Gaines?: Andrzej DUQUE for NOB visit and urine/GCC labs at [facility] (2) Obesity affecting : Status: Acute Qualifiers: Trimester: first trimester Qualified Code(s): O99.211 - Obesity complicating , first trimester Comment: 2x wkly NST starting @ 32 wks, gct at nob WNL, plan third trimester testing (3) Family history of congenital anomaly of cardiovascular system: Status: Acute Comment: maternal uncle from a heart condition 17 hours after (4) Anxiety with depression: Status: Acute Comment: celexa, counseling, vistaril; stable (5) Anemia during : Status: Acute Comment: start FE (6) Gestational diabetes: Status: Acute Qualifiers: Gestational diabetes mellitus control: diet-controlled Trimester: third trimester Qualified Code(s): O24.410 - Gestational diabetes mellitus in , diet controlled Comment: Dr Foster management. wkly NST at 32 week, growth US q4wk at 32 wk, 07/31 nl growth (7) Infertility: Status: Acute Comment: letrozole (8) Lab test positive for detection of COVID-19 virus: Status: Acute Comment: 81mg asa, growth US @ 32, 36 wks (9) Bipolar 1 disorder: Status: Acute Comment: celexa, buspirone, counseling (10) Hx of section: Status: Resolved Comment: AoD at 6cm; wants repeat CS. scheduled 10/01 @ 7:30am SM (11) : Status: Acute Qualifiers: Weeks of gestation: 36 weeks Qualified Code(s): Z3A.36 - 36 weeks gestation of Comment: declines carrier and ntd screening, low risk NIPT. Anatomy normal but limited, follow-up 4 weeks to complete. FU nl Plan Details Other Orders: Orders: POC Urinalysis 2 Dip (Clinic) Today UPDATE- I have seen the patient and performed any clinically relevant updates to the history and physical exam. Laly Pham MD
[2021-10-01] MEDS: busPIRone 5 MG Tablet 10 MG PO ×2 (10:13→22:58)
[2021-10-01 10:26] LABS: Bedside Glucose 108 mg/dL (74-106)
[2021-10-01] MEDS: Senna/Docusate Sodium 1 Tablet PO (11:26)
[2021-10-01] MEDS: Prenatal Vits Tablet 1 TABLET PO (11:27)
[2021-10-01] MEDS: oxyCODONE 5 MG Tablet PO ×2 (16:05→20:07)
[2021-10-01] MEDS: Citalopram 20 MG Tablet 40 MG PO (18:31)
[2021-10-01] MEDS: Enoxaparin 40 MG/0.4 ML Syringe SC (22:53)
--- NOTE | 2021-10-01 23:42 | NURSING ---
straight cath per protocol d/t no output >75 cc since padilla catheter removal at 1500 today.
[2021-10-02 00:20] VITALS: BP 118/76; PULSE 101; RESP 16; TEMP 36.2; O2SAT 98
[2021-10-02] MEDS: 0.9% Saline Lock 10 ML Syringe IV ×2 (00:21→04:28)
[2021-10-02] MEDS: oxyCODONE 5 MG Tablet PO ×6 (00:21→21:36)
[2021-10-02] MEDS: Furosemide 40 MG/4 ML Vial IV (00:21)
[2021-10-02] MEDS: Lactated Ringers 500 ML 999 ML IV (00:22)
[2021-10-02] MEDS: Acetaminophen 500 MG Tablet 1000 MG PO ×4 (01:15→19:28)
[2021-10-02 04:23] VITALS: BP 125/70; PULSE 99; RESP 18; TEMP 35.9; O2SAT 97
[2021-10-02] MEDS: Ketorolac 30 MG/ML Syringe IV (04:28)
[2021-10-02 06:11] LABS: Bedside Glucose 115 mg/dL (74-106)
[2021-10-02 06:27] LABS: Hematocrit 32.7 % (37-47); Hemoglobin 10.8 g/dL (12.0-15.0); Mean Corpuscular Hgb 29.9 pg (27.0-32.0); Mean Corpuscular Volume 90.6 fL (81-99); Mean Platelet Vol. 12.1 fl (6.2-12.0); Platelet Count 138 K/mm3 (150-450); RBC Distribution Width CV 14.9 % (11.6-14.6); RBC Distribution Width SD 49.1 fl (35.1-43.9); Red Blood Count 3.61 M/mm3 (4.2-5.4); White Blood Count 10.5 K/mm3 (4.4-11.0)
[2021-10-02 07:44] VITALS: BP 126/61; PULSE 89; RESP 14; TEMP 36.1; O2SAT 98
--- NOTE | 2021-10-02 08:17 | PCM.DC ---
Discharge Instructions Diet Discharge Diet: No restrictions Activity Discharge Activity: May Not Drive (for 2 weeks or while taking narcotic pain medications.), May Shower and May Take a Tub Bath (in 7 days) May shower in (days): 0 May resume sexual activity in: 4-6 weeks Weight Bearing Status: Full weight bearing Lifting Restrictions: 20 pounds Dressing / Incision Call your doctor if your incision/area has: Continuous Slow Oozing, Sudden Increased Bleeding, Increased Pain/ Swelling, Increased Redness and Foul Smelling Discharge Call your doctor if you observe: Fever of 101 or Higher and Using more than 1 pad per hour (for 2 hours) Suture Line Care: Avoid Pulling/Pushing and Avoid Pinching/Bending Cleanse incision/area with: Soap & Water and Keep Dressing Clean & Dry Follow Up Care Please Follow Up With: Laly Pham MD When: Call [phone] to make an appointment for an incision check in 1-2 weeks. Test Results: Test results from this visit will be discussed in further detail at your follow-up appointment, if applicable. Discharge Plan Admission Admit Date/Time: 10/01/21 05:30 Primary Reason for Your Visit: section Attending Provider: Laly Pham Primary Care Provider: Alecia Rogers Discharge Orders/Prescriptions Prescriptions: New oxycodone-acetaminophen [Percocet] 5-325 mg tablet 1 tab PO Q6H PRN (Reason: pain) 7 Days Qty: 20 RF: 0 Continued prenat.vits,eddie,rrm-ajmn-sjhab Tablet 1 tab PO DAILY RF: 0 docusate sodium 50 mg Capsule 50 mg PO DAILY RF: 0 citalopram 40 mg tablet 40 mg PO DAILY RF: 0 (DME) blood-glucose meter [[employer]ack Blood Glucose System] Kit See Rx Instructions .ROUTE .MEDSUPPLY Qty: 1 RF: 0 (DME) Truetr[employer] Test Strip See Rx Instructions .ROUTE .MEDSUPPLY Qty: 100 RF: 4 cyclobenzaprine 10 mg tablet 10 mg PO TID PRN (Reason: muscle spasm) Qty: 30 RF: 2 buspirone 10 mg tablet 10 mg PO TID PRN (Reason: anxiety) 30 Days Qty: 30 RF: 3 Discontinued metformin 500 mg tablet 1,000 mg PO BID RF: 0 Referrals / Follow Up: Alecia Rogers MD [Primary Care Provider] - Disposition Disposition (needs filled in before D/C Order can be placed): Home, Self Care
--- NOTE | 2021-10-02 08:22 | PCM.PN.OB ---
Subjective Subjective Patient doing well without complaints. Tolerating PO. Ambulating and voiding without difficulty. feeding well. Denies chest pain, shortness of breath, calf pain/swelling, fevers, chills, lightheadedness. Objective Data Objective Data Vital Signs: Vital Signs Temp Pulse Resp BP Pulse Ox 97 F L 89 14 126/61 H 98 10/02/21 07:44 10/02/21 07:44 10/02/21 07:44 10/02/21 07:44 10/02/21 07:44 Oxygen Delivery Method Room Air Weight: 290 lb 12.635 oz Body Mass Index (BMI) 49.8 Intake & Output: Intake and Output for Last 24 Hours 09/30/21 10/01/21 10/02/21 23:59 23:59 23:59 Intake Total 1913.0 / 1913.0 500 / 500 Output Total 480 / 480 1300 / 1300 Balance 1433.0 / 1433.0 -800 / -800 Lab / Micro Data Result Diagrams: 10/02/21 06:20 Labs: Laboratory Results - last 24 hr 10/01/21 10:20: POC Glucose 108 H 10/02/21 06:00: POC Glucose 115 H 10/02/21 06:20: WBC 10.5, RBC 3.61 L, Hgb 10.8 L, Hct 32.7 L, MCV 90.6, MCH 29.9, MCHC 33.0, RDW Std Deviation 49.1 H, RDW Coeff of Juliann 14.9 H, Plt Count 138 L, MPV 12.1 H Micro: Microbiology 10/01/21 06:10 Nasal Secretion SARS-CoV-2 Antigen (Rapid) - Final ROS Constitutional Constitutional: Reports systems reviewed and no addt'l complaints, except as documented Cardiovascular Cardiovascular: Reports systems reviewed and no addt'l complaints, except as documented Respiratory/Chest Respiratory/Chest: Reports systems reviewed and no addt'l complaints, except as documented Gastrointestinal Gastrointestinal: Reports systems reviewed and no addt'l complaints, except as documented Physical Exam Const alert, oriented x3 and no apparent distress HEENT Head and Scalp: atraumatic Resp normal respiratory effort GI soft to palpation and non-tender Inspection: incision intact, healing well and drainage (none) Bimanual Exam - Vag & Uterus: uterus non-tender Uterus Palpation: uterus fundus firm (below Umbilicus) Assessment & Plan (1) delivery delivered: COMMENT: 39 rltcs gdma2 boy wilda scar tissue spinal/general anesthesia (2) Anxiety with depression: COMMENT: celexa, counseling, vistaril; stable (3) Gestational diabetes: QUALIFIERS: Gestational diabetes mellitus control: diet-controlled Trimester: third trimester Qualified Code(s): O24.410 - Gestational diabetes mellitus in , diet controlled COMMENT: Dr Foster management. wkly NST at 32 week, growth US q4wk at 32 wk, 07/31 nl growth PLAN: s/p LTCS PPD # 1 1. routine post care 2. breast feeding- support given 3. rh positive 4. rubella immune
[2021-10-02] MEDS: Prenatal Vits Tablet 1 TABLET PO (09:29)
[2021-10-02] MEDS: Senna/Docusate Sodium 1 Tablet PO (09:29)
[2021-10-02] MEDS: Enoxaparin 40 MG/0.4 ML Syringe SC ×2 (09:29→21:36)
[2021-10-02] MEDS: busPIRone 5 MG Tablet 10 MG PO ×2 (09:37→21:36)
[2021-10-02 13:30] VITALS: BP 130/75; PULSE 114; RESP 16; TEMP 36.6; O2SAT 100
--- NOTE | 2021-10-02 13:30 | CASEMGMT ---
Social Work Assessment Labor and Delivery Unit Date of Referral: 10.01.2021 Time of Referral: 1012 Referred By: Dr. Bryant Date of Intervention: 10.02.2021 Time of Intervention: [id number] Reason for Referral: Maternal history of Bipolar disorder. History obtained from: Medical records including prior social work assessment, mother of baby (MOB) Mariah Hope; father of baby (FOB) Andrzej Hope and Andrzej's mother present for most of conversation (with MOB's permission). Household composition: MOB, FOB, and now infant. Home is reported as safe and adequate. Patient's parent/guardian status: MOB is a 26 year old female, to the FOB since May 2021. Together since 2019 however. MOB denies any safety concerns in relationship with the FOB. Gardiner is the first child for parents together and the second for MOB. Minor children include: Monisha Black, born 04-12-2017, father is Rui Hayden. Gardiner is Jelani Hope, born 10-01-2021, father is the Andrzej. Medical History: MOB is G2, P1 to 2 after delivering via caesarian section. MOB under general anesthesia for the procedure, due to high anxiety. conceived via use of Letrozole. Maternal history of gestational diabetes. Infant delivered within 8 pounds 7 ounces. Apgars 8 and 8 at 1 and 5 minutes of life. 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 No issues with reading, writing, or learning. Financial Status: MOB works for [employer]. 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 Infant Supplies: MOB reports to have necessary infant supplies including safe sleep space and car seat. Planning to breast feed. Childcare/Caregiver(s): MOB and FOB. Grandmothers to help with childcare when MOB returns to work. Transportation: No issues. Programs/Agencies Involved: No agency involvement. Reports over incoming for [facility]. Declines [facility] referral. MOB reports to have a psychiatric provider, Jodi Amaral, who can manage medications. Sees Jodi through [facility]. No legal or children services history reported. Behavioral Health Issues: Mental Health History: MOB with history of depression, anxiety, and bipolar disorder. History fo suicidal ideation as a teen but throughs reportedly fleeting, no action, intent, or plan. Reports some depression and anxiety after of Gricelda. Describes difficulty sleeping due to worry about baby. MOB reports to be on Celexa and Buspirone during . Had Vistaril prescription to use when needed. Prior to was on metoprolol and Gabapentin as well. Reports plan to remain on medication in the time frame. History of counseling at [facility] years ago. Substance Use History: MOB denies. Drug Screens: None noted in chart. Family/Social Stressors: Maternal anxiety history with use of general anesthesia to help manage anxiety. MOB reports was anxious leading up to delivery, but not that baby is here, and MOB and baby are both recovering feels anxiety has lessened. Support Systems: FOB, mother, [id number]-[id number], and other friend. FOB will get time off of work to help at home. MOB's mom and [id number] are both willing to help when needed too. Depression/Shaken Baby/Safe Sleeping: Reviewed safe sleeping, shaken baby, mood and anxiety disorders, including risk for psychosis due to history of bipolar. Educated that father's can also be at risk. ASSESSMENT: Met with MOB alone and then joined shortly after by FOB and FOB's mom. MOB reported, prior to family's arrival, that very open with family and okay to talk about mental health in front of family. MOB reports to have all needed supplies to care for baby at home. FOB is taking time off of work to help at home. MOB's mom and and MIL are both able to help when needed. MOB reports to feel anxiety has leveled out since delivery. MOB reports also, to feel that SCN is going well, which has also helped to decrease anxiety. MOB reports intent to remain on medications in the timeframe and attributes this to helping MOB to manage as well as currently doing. Has a psychiatric provider in the community already. Talked about coping skills, focusing on what MOB has control over. The MIL broached SIDS due to having a history of loss to SIDS. The MIL expressed concerns that MOB is going to worry about SIDS. Reviewed with MOB important of safe sleeping and no exposure to smoke, even secondhand. Encouraged MOB to focus on what has control over. OB expressed appreciation. Educated MOB that this display card writer is the assigned family welfare social work professor for the [facility], and that information gathered from assessment would be for both [facility] and [facility]. MOB verbalized understanding. Reviewed grounding techniques and coping skills MOB can use and try at home. Providing hoem going resource for mood and anxiety disorders. PLAN: MOB will discharge to hotel status when medically ready. Baby is in SCN. Social work to follow in while in the SCN. No other services requested or indicated. -ERICKA Woods, COLLECTION SYSTEMS ADMINISTRATOR
[2021-10-02] MEDS: Naproxen 500 MG Tablet PO ×2 (14:45→21:36)
[2021-10-02] MEDS: Citalopram 20 MG Tablet 40 MG PO (17:27)
[2021-10-02 19:32] VITALS: BP 124/56; PULSE 102; RESP 18; TEMP 36.6; O2SAT 98
[2021-10-03] MEDS: Acetaminophen 500 MG Tablet 1000 MG PO ×4 (02:08→19:40)
[2021-10-03 02:09] VITALS: BP 126/58; PULSE 81; RESP 18; TEMP 36.6; O2SAT 100
[2021-10-03] MEDS: oxyCODONE 5 MG Tablet PO ×3 (03:12→19:40)
[2021-10-03] MEDS: Naproxen 500 MG Tablet PO ×3 (06:30→21:22)
[2021-10-03] MEDS: Senna/Docusate Sodium 1 Tablet PO (09:04)
[2021-10-03] MEDS: Prenatal Vits Tablet 1 TABLET PO (09:06)
[2021-10-03 09:10] VITALS: BP 123/70; PULSE 87; RESP 18; TEMP 36.7; O2SAT 97
--- NOTE | 2021-10-03 09:50 | PN.OBGYN_ITS ---
Subjective Subjective Patient doing well without complaints. Tolerating PO. Ambulating and voiding without difficulty. Feeding well. Denies chest pain, shortness of breath, calf pain/swelling, fevers, chills, lightheadedness. Objective Data Objective Data Vital Signs: Vital Signs Temp Pulse Resp BP Pulse Ox 98.1 F 87 18 123/70 H 97 10/03/21 09:10 10/03/21 09:10 10/03/21 09:10 10/03/21 09:10 10/03/21 09:10 Oxygen Delivery Method Room Air Weight: 290 lb 12.635 oz Body Mass Index (BMI) 49.8 Intake & Output: Intake and Output for Last 24 Hours 10/01/21 10/02/21 10/03/21 23:59 23:59 23:59 Intake Total 1913.0 / 1913.0 500 / 500 Output Total 480 / 480 1300 / 1300 Balance 1433.0 / 1433.0 -800 / -800 Lab / Micro Data Result Diagrams: 10/02/21 06:20 Micro: Microbiology 10/01/21 06:10 Nasal Secretion SARS-CoV-2 Antigen (Rapid) - Final ROS Constitutional Constitutional: Denies chills, fatigue, fever(s), poor appetite or weakness Eyes Eyes: Denies blurry vision, change in vision, seeing flashes or spots in vision ENT HEENT: Denies dizziness, headache(s), loss taste/smell or sore throat Cardiovascular Cardiovascular: Denies chest pain, dizziness, dyspnea, irregular heart rhythm, palpitations or rapid heart rate Respiratory/Chest Respiratory/Chest: Denies chest tightness, cough, dyspnea or breast pain Gastrointestinal Gastrointestinal: Denies abdominal pain, constipation or vomiting Genitourinary Genitourinary: Denies dysuria or flank pain Musculoskeletal Musculoskeletal: Denies difficulty walking, joint pain, limited range of motion or numbness Neurologic Neurologic: Denies abnormal movements, abnormal speech, dizziness, numbness, seizure-like activity or syncope Psychiatric Psychiatric: Denies anxiety, behavioral changes, change in appetite, confusion, depression or suicidal thoughts Physical Exam Const alert, oriented x3 and no apparent distress General Appearance: cooperative and comfortable Resp normal respiratory effort Cardio regular rate GI normal to inspection, nondistended, normoactive bowel sounds GI Narrative: uterus is firm below umbilicus Palpation: soft Bimanual Exam - Adnexa, Other: Negative for cul-de-sac fullness Back/Spine no CVA tenderness and thoraco-lumbar ROM normal Extremity normal to inspection, no clubbing, cyanosis or edema, no calf tenderness and no pedal edema Psych mental status grossly normal, thought process normal, cooperative, affect normal, speech normal, activity/motor behavior normal, denies homicidal ideation and denies suicidal ideation Assessment & Plan (1) delivery delivered: COMMENT: 39 rltcs gdma2 boy wilda scar tissue spinal/general anesthesia (2) Anxiety with depression: COMMENT: celexa, counseling, vistaril; stable (3) Gestational diabetes: QUALIFIERS: Gestational diabetes mellitus control: diet-controlled Trimester: third trimester Qualified Code(s): O24.410 - Gestational diabetes mellitus in , diet controlled COMMENT: Dr Foster management. wkly NST at 32 week, growth US q4wk at 32 wk, 07/31 growth PLAN: s/p LTCS PPD # 2 1. routine post care 2. breast feeding- support given 3. rh positive 4. rubella immune 5. patient wants to be discharged to home. She is requesting home medications be sent to [facility] pharmacy.
[2021-10-03] MEDS: Enoxaparin 40 MG/0.4 ML Syringe SC ×2 (10:11→21:22)
[2021-10-03 14:30] VITALS: BP 135/55; PULSE 89; RESP 20; TEMP 36.3; O2SAT 98
[2021-10-03] MEDS: Citalopram 20 MG Tablet 40 MG PO (17:19)
--- NOTE | 2021-10-03 18:46 | NURSING ---
1430-noted abraided reddened area above tape on bilat side of upper abd. questioned pt if she has been itchy and pt states she didnt think so, however noted her to itch right above the area on the rt side of her abd and spoke up and said he seen her scratching earlier today.
[2021-10-03] MEDS: Hydrocortisone 2.5% Crm 1 APPLIC TOPICAL (21:10)
[2021-10-03 21:13] VITALS: BP 91/62; PULSE 91; RESP 18; TEMP 36.1
[2021-10-03] MEDS: busPIRone 5 MG Tablet 10 MG PO (21:22)
[2021-10-04 02:30] VITALS: BP 113/71; PULSE 85; RESP 18; TEMP 36.1; O2SAT 100
[2021-10-04] MEDS: Acetaminophen 500 MG Tablet 1000 MG PO ×2 (02:37→09:38)
--- NOTE | 2021-10-04 05:25 | PCM.PN.OB ---
Subjective Subjective Patient doing well without complaints. Tolerating PO. Ambulating and voiding without difficulty. Feeding well. Denies chest pain, shortness of breath, calf pain/swelling, fevers, chills, lightheadedness. she decided to stay yesterday for support Objective Data Objective Data Vital Signs: Vital Signs Temp Pulse Resp BP Pulse Ox 97 F L 85 18 113/71 100 10/04/21 02:30 10/04/21 02:30 10/04/21 02:30 10/04/21 02:30 10/04/21 02:30 Oxygen Delivery Method Room Air Weight: 290 lb 12.635 oz Body Mass Index (BMI) 49.8 Intake & Output: Intake and Output for Last 24 Hours 10/02/21 10/03/21 10/04/21 23:59 23:59 23:59 Intake Total 500 / 500 Output Total 1300 / 1300 Balance -800 / -800 Lab / Micro Data Result Diagrams: 10/02/21 06:20 Micro: Microbiology 10/01/21 06:10 Nasal Secretion SARS-CoV-2 Antigen (Rapid) - Final ROS Constitutional Constitutional: Denies chills, fatigue, fever(s), poor appetite or weakness Eyes Eyes: Denies blurry vision, change in vision, seeing flashes or spots in vision ENT HEENT: Denies dizziness, headache(s), loss taste/smell or sore throat Cardiovascular Cardiovascular: Denies chest pain, dizziness, dyspnea, irregular heart rhythm, palpitations or rapid heart rate Respiratory/Chest Respiratory/Chest: Denies chest tightness, cough, dyspnea or breast pain Gastrointestinal Gastrointestinal: Denies abdominal pain, constipation or vomiting Genitourinary Genitourinary: Denies dysuria or flank pain Musculoskeletal Musculoskeletal: Denies difficulty walking, joint pain, limited range of motion or numbness Neurologic Neurologic: Denies abnormal movements, abnormal speech, dizziness, numbness, seizure-like activity or syncope Psychiatric Psychiatric: Denies anxiety, behavioral changes, change in appetite, confusion, depression or suicidal thoughts Physical Exam Const alert, oriented x3 and no apparent distress General Appearance: cooperative and comfortable HEENT normocephalic Resp normal respiratory effort Cardio regular rate GI normal to inspection, nondistended, normoactive bowel sounds GI Narrative: uterus is firm below umbilicus Palpation: soft Rectal Exam: other Other Details: Incision is clean, dry, and intact no CVA tenderness Bimanual Exam - Adnexa, Other: Negative for cul-de-sac fullness Back/Spine no CVA tenderness and thoraco-lumbar ROM normal Extremity normal to inspection, no clubbing, cyanosis or edema, no calf tenderness and no pedal edema General Extremity: edema bilateral (trace ) Psych mental status grossly normal, thought process normal, cooperative, affect normal, speech normal, activity/motor behavior normal, denies homicidal ideation and denies suicidal ideation Assessment & Plan (1) delivery delivered: COMMENT: 39 rltcs gdma2 boy wilda scar tissue spinal/general anesthesia (2) Anxiety with depression: COMMENT: celexa, counseling, vistaril; stable PLAN: patient was discharged yesterday but was having some problems and a small rash above her incision. This is resolved and she is now ready for discharge.
[2021-10-04] MEDS: Naproxen 500 MG Tablet PO (06:34)
[2021-10-04] MEDS: oxyCODONE 5 MG Tablet PO (06:34)
[2021-10-04 09:28] VITALS: BP 123/81; PULSE 76; RESP 20; TEMP 36.4; O2SAT 100
[2021-10-04] MEDS: Senna/Docusate Sodium 1 Tablet PO (09:38)
[2021-10-04] MEDS: Enoxaparin 40 MG/0.4 ML Syringe SC (09:38)
[2021-10-04] MEDS: Hydrocortisone 2.5% Crm 1 APPLIC TOPICAL (11:11)
--- NOTE | 2021-10-04 19:00 | PCM.DC.SUM ---
Providers Date of Admission: 10/01/21 Primary Care Physician: Dr. Alecia Rogers MD Reason For Visit: REPEAT C SECTION Diagnosis Discharge Diagnosis (1) delivery delivered: Status: Inactive Code(s): O82 - Encounter for delivery without indication (2) Anxiety with depression: Status: Acute Code(s): F41.8 - Other specified anxiety disorders Medications at Discharge Home Medications prenat.vits,eddie,vzd-uxrs-yqprv 1 tab PO DAILY 01/31/21 citalopram 40 mg PO DAILY 08/18/21 cyclobenzaprine 10 mg tablet 10 mg PO TID PRN #30 tab 08/31/21 buspirone 10 mg tablet 10 mg PO TID PRN 30 Days #30 tab 09/25/21 docusate sodium [Colace] 100 mg PO DAILY 14 Days #14 cap 10/03/21 ferrous gluconate 324 mg PO DAILY #30 tab 10/03/21 labetalol 100 mg tablet 100 mg PO BID #60 tab 10/06/21 Hospital Course Operations - ( section ) Summary of Care Provided Minutes Spent on Discharge: 20 Hospital Course: The patient was admitted on 10/01 for a repeat section. She had pain control problems on post op day #0-2 and her baby was admitted to the special care nursery which caused some emotional stress. Over the course of hospital days 1 through 3, she was given PO and IV pain medication and eventually felt well enough to go home on the evening of post op day #3 Physical Exam HEENT normocephalic Resp normal respiratory effort and normal air movement GI soft to palpation, non-tender and non-distended Rectal Exam: other Other Details: Incision is clean, dry, and intact no CVA tenderness Extremity normal to inspection General Extremity: edema bilateral (trace ) Weight / BMI Weight Weight: 290 lb 12.635 oz Body Mass Index (BMI) 49.8 ABG / Lab / Microbiology Data Result Diagrams: 10/02/21 06:20 Microbiology: Microbiology 10/01/21 06:10 Nasal Secretion SARS-CoV-2 Antigen (Rapid) - Final D/C Instructions Discharge Diet: No restrictions May shower in (days): 0 May resume sexual activity in: 4-6 weeks Weight Bearing Status: Full weight bearing Call your doctor if your incision/area has: Continuous Slow Oozing, Sudden Increased Bleeding, Increased Pain/ Swelling, Increased Redness and Foul Smelling Discharge Call your doctor if you observe: Fever of 101 or Higher and Using more than 1 pad per hour (for 2 hours) Suture Line Care: Avoid Pulling/Pushing and Avoid Pinching/Bending Cleanse incision/area with: Soap & Water and Keep Dressing Clean & Dry Please Follow Up With: Laly Pham MD When: Call [phone] to make an appointment for an incision check in 1-2 weeks. Meaningful Use Info Meaningful Use Diagnoses (Choose all that apply): None applicable Discharge Plan Admission Admit Date/Time: 10/01/21 05:30 Primary Reason for Your Visit: section Attending Provider: Laly Pham Primary Care Provider: Alecia Rogers Instructions Additional Instructions / Restrictions: make incision check apt for 1-2 weeks and 6 weeks post Discharge Orders/Prescriptions Prescriptions: New docusate sodium [Colace] 100 mg capsule 100 mg PO DAILY 14 Days Qty: 14 RF: 0 ferrous gluconate 324 mg (38 mg iron) tablet 324 mg PO DAILY Qty: 30 RF: 0 Continued prenat.vits,eddie,wdv-khko-hnkxf Tablet 1 tab PO DAILY RF: 0 citalopram 40 mg tablet 40 mg PO DAILY RF: 0 cyclobenzaprine 10 mg tablet 10 mg PO TID PRN (Reason: muscle spasm) Qty: 30 RF: 2 buspirone 10 mg tablet 10 mg PO TID PRN (Reason: anxiety) 30 Days Qty: 30 RF: 3 Discontinued metformin 500 mg tablet 1,000 mg PO BID RF: 0 No Action labetalol 100 mg tablet 100 mg PO BID Qty: 60 RF: 3 Referrals / Follow Up: Lani Bates MD [STAFF PHYSICIAN] - Disposition Disposition (needs filled in before D/C Order can be placed): Home, Self Care
== END 2021-10-04 11:30 | disposition home or self-care (01) | DRG 788 ==
PROVIDERS: Admitting Provider Obstetrics & Gynecology; PCP Family Medicine; Visit Provider Obstetrics & Gynecology
PROC: 10D00Z1 Extraction of Products of Conception, Low, Open Approach (ICD-10-PCS; CPT 59514; principal; 2021-10-01 07:15)
DX: O24.420 Gestational diabetes mellitus in childbirth, diet controlled (principal); E66.9 Obesity, unspecified; D64.9 Anemia, unspecified; F31.9 Bipolar disorder, unspecified; F41.8 Other specified anxiety disorders; J45.909 Unspecified asthma, uncomplicated; O99.214 Obesity complicating childbirth; O99.344 Other mental disorders complicating childbirth; Z79.899 Other long term (current) drug therapy; Z37.0 Single live birth; O99.52 Diseases of the respiratory system complicating childbirth; Z86.16 Personal history of COVID-19; Z3A.39 39 weeks gestation of pregnancy; O99.892 Other specified diseases and conditions complicating childbirth; N97.9 Female infertility, unspecified; O99.02 Anemia complicating childbirth
CPT/HCPCS: 59050; 82962; 85025; 85027; 86850; 86900; 86901; 87426; 99218; J7120; A4216; G0378; J1940

== ENCOUNTER 2021-10-06 10:13 | Outpatient (CLI) | payer OTHER, SELFPAY ==
[2021-10-06 11:00] LABS: Absolute Lymphocyte Count 1.28 X10^3/uL (0.83-4.51); Basophil# 0.04 X10^3/uL; Basophil% 0.6 % (0-1); Eosinophil# 0.07 X10^3/uL; Hematocrit 29.1 % (37-47); Hemoglobin 9.5 g/dL (12.0-15.0); Lymphocyte # 1.28 X10^3/ul (0.83-4.51); Lymphocyte % 18.8 % (19-41); Mean Corp Hgb Conc 32.6 g/dL (32-36); Mean Corpuscular Hgb 29.4 pg (27.0-32.0); Mean Corpuscular Volume 90.1 fL (81-99); Monocyte# 0.44 X10^3/uL; Monocyte% 6.5 % (0-10); NRBC Flagged by Analyzer 0 % (0-5); Neutrophil # 4.95 X10^3/uL (2.7-7.7); Neutrophil % 72.5 % (47-70); Platelet Count 233 K/mm3 (150-450); RBC Distribution Width CV 14.6 % (11.6-14.6); RBC Distribution Width SD 47.9 fl (35.1-43.9); Red Blood Count 3.23 M/mm3 (4.2-5.4); White Blood Count 6.8 K/mm3 (4.4-11.0)
[2021-10-06 11:19] LABS: Protein, Urine (Random) 15.5 mg/dL (<11.9); Protein:Creat Ratio 287 mg/g CRE (0-200)
[2021-10-06 11:23] LABS: ALB/GLOB Ratio 0.5 RATIO (0.9-2.4); AST(SGOT) 27 U/L (15-37); Alanine Aminotransfer ALT/SGPT 45 U/L (13-56); Albumin, Serum 2.2 g/dL (3.2-5.0); Alkaline Phosphatase 111 U/L (45-117); Anion Gap 6 (5-15); BUN 12 mg/dL (7-18); BUN/Creat Ratio 15.5 RATIO (10-20); Chloride 109 mmol/L (98-107); Creatinine, Serum 0.78 mg/dL (0.55-1.02); EST Glomerular Filtration Rate 97 mL/min (>60); Est Glom Filt Rate - Afr Amer 117 mL/min (>60); Globulin 4.3 g/dL (2.2-4.2); Glucose 91 mg/dL (74-106); Potassium 4.3 mmol/L (3.5-5.1); Protein, Total 6.5 g/dL (6.4-8.2); Sodium Level 140 mmol/L (136-145)
== END 2021-10-06 23:59 | disposition home or self-care (01) ==
LOC: PAVLAB 10:14
PROVIDERS: PCP Family Medicine; Referring Provider Obstetrics & Gynecology; Visit Provider Obstetrics & Gynecology
DX: R03.0 Elevated blood-pressure reading, without diagnosis of hypertension (principal)
CPT/HCPCS: 36415; 80053; 82570; 84156; 85025

== ENCOUNTER 2021-10-06 11:14 | Outpatient (CLI) | payer OTHER, SELFPAY ==
--- NOTE | 2021-10-06 11:17 | EKG12_ITS ---
Test Reason : CHEST HEAVINESS Blood Pressure : / mmHG Vent. Rate : 067 BPM Atrial Rate : 067 BPM P-R Int : 162 ms QRS Dur : 080 ms QT Int : 388 ms P-R-T Axes : 047 008 009 degrees QTc Int : 409 ms Normal sinus rhythm with sinus arrhythmia Normal ECG Confirmed by ASHLEY FORD, CHAZ ([id number]), news videotape editor SHANT LUNSFORD ([id number]) on 10/07/2021 8:51:59 AM Referred By: Laly Pham Confirmed By:CHAZ RAMIREZ MD
== END 2021-10-06 23:59 | disposition home or self-care (01) ==
LOC: PSN 11:16
PROVIDERS: PCP Family Medicine; Referring Provider Obstetrics & Gynecology; Visit Provider Obstetrics & Gynecology
DX: R03.0 Elevated blood-pressure reading, without diagnosis of hypertension (principal)
CPT/HCPCS: 93005

== ENCOUNTER 2021-11-17 18:12 | Emergency (ER) | payer OTHER, SELFPAY ==
[2021-11-17 18:13] VITALS: BP 170/94; PULSE 71; RESP 16; TEMP 36.2; O2SAT 99; BMI 44.6
--- NOTE | 2021-11-17 18:33 | ED.VIS.BACK ---
HPI History of Present Illness Chief Complaint: Back Detail of Chief Complaint: Bilateral low back pain Informant: patient and spouse/S.O. Onset/Context/Timing Onset: Weeks (Slightly greater than 1 week) Context: Sudden Onset Injury: twisting Timing: Continuous Quality: Dull and Aching Location: Lumbar Current Severity: Mild Maximum Severity: Moderate Worsened by: improves with Movement, Ambulation, Bending and Lifting Relieved by: Nothing Associated Symptoms Associated Symptoms: - (No saddle paresthesia or anesthesia. Denies foot drop. Denies buckling of her knees going up or down steps. There is no history of direct trauma.); Negative for Numbness, Tingling, Radiation to Right Leg, Radiation to Left Leg, Abdominal Pain, Unable to Ambulate, Unable to Transfer, Urinary Retention, Urinary Incontinence, Constipation and Fecal Incontinence Narrative Narrative: Patient is a obese woman who presents with bilateral lumbar central pain. This occurred over a week ago. She was chasing her son. She grabbed them. She feels she twisted. Pain is gotten worse. She has been applying heat. She took 1 Percocet tablets morning with minimal improvement. She has no radicular pain. She has no history of herniated disc. She did have an epidural within the past 1 to 2 months. Prior similar symptoms: No Recent Illness/Hospitalization: No PFSH PFSH Medical History Asthma Bipolar 1 disorder delivery delivered GERD (gastroesophageal reflux disease) Hemorrhoids History of EKG Infertility Lab test positive for detection of COVID-19 virus LUIS (obstructive sleep apnea) Panic attacks depression hypertension Home Medications prenat.vits,eddie,dhn-nzcs-vvyek 1 tab PO DAILY 01/31/21 [History Last Taken 09/30/21 17:00] citalopram 40 mg PO DAILY 08/18/21 [History Last Taken 09/30/21 17:00] buspirone 10 mg tablet 10 mg PO TID PRN 30 Days #30 tab 11/12/21 [Rx Last Taken Unknown] norgestimate 0.25 mg-ethinyl estradiol 35 mcg tablet 1 tab PO QDAY #84 tab 11/12/21 [Rx Last Taken Unknown] hydrocodone-acetaminophen 1 tab PO Q6H PRN PRN 3 Days #10 tablet 11/17/21 [Rx Last Taken Unknown] naproxen 500 mg PO BID #14 tab 11/17/21 [Rx Last Taken Unknown] Allergy/AdvReac Type Severity Reaction Status Date / Time No Known Allergies Allergy Verified 10/13/21 10:54 Family History Father Brain tumor (benign) Depression Grandmother Hypertension Hyperlipemia Depression Mother Allergies Grandfather Asthma COPD (chronic obstructive pulmonary disease) Surgical History H/O oral surgery Hx of section Social History household members: family current occupational status: employed Smoking Status: Never smoker second hand exposure: No alcohol intake: never substance use type: does not use caffeine: Yes what type of physical activity do you participate in: aerobics frequency: 3-4 times per week seatbelt use: always do you feel safe at home: Yes additional social history: Fianc?-Andrzej ROS ROS ED Constitutional Constitutional ED: Denies chills, fever(s), subjective or sweats Eyes Eyes: Denies blurry vision or change in vision ENT ENT ED: Denies ear pain, rhinorrhea or sore throat Cardiovascular Cardiovascular: Denies chest pain Respiratory/Chest Respiratory/Chest: Denies dyspnea Gastrointestinal Gastrointestinal: Denies abdominal pain, diarrhea, nausea or vomiting Genitourinary Genitourinary ED: Denies dysuria, hematuria or urinary frequency Musculoskeletal Musculoskeletal: Reports back pain; Denies arthralgias, myalgias or neck pain Integumentary Denies rash Neurologic Neurologic: Denies paresthesias or weakness Hematologic/Lymphatic Hematologic/Lymphatic: Denies easy bleeding, easy bruising or lymphadenopathy EXAM Physical Exam Const Vital Signs: 11/17/21 18:13 Temperature 97.1 F L Temperature Source Temporal Pulse Rate 71 Respiratory Rate 16 Blood Pressure 170/94 H Blood Pressure Mean 119 Pulse Ox 99 Oxygen Delivery Method Room Air Positive well nourished, well developed and obese General Appearance ED: well developed and NAD; Negative for pallor Nutritional Appearance: obese HEENT Reports TM's clear and moist mucous membranes Negative for trauma or tenderness Tympanic Membrane ED: Yes TM's clear Eyes PERRL and EOMs intact bilaterally General Eye ED: Negative for pale conjunctiva or scleral icterus Neck no lymphadenopathy, supple and no JVD Resp normal respiratory effort and clear to auscultation bilaterally Cardio regular rate, regular rhythm, S1 normal heart sound, S2 normal heart sound and no murmurs GI normal to inspection, nondistended, normoactive bowel sounds, soft to palpation and non-tender Back/Spine normal to inspection; Negative for no thoracic nor lumbar tenderness Back/Spine Narrative: EHLs intact bilaterally. General Back: Negative for CVA tenderness or scar(s) Cervical Spine: Negative for cervical spine tenderness and Negative for paracervical muscle tenderness Thoracic Spine / Upper Back: paraspinal muscle tenderness Lumbar Spine / Lower Back: straight leg raise negative bilaterally Extremity normal to inspection and no clubbing, cyanosis or edema General Extremety ED: Negative for edema or tenderness General Extremity: Negative for edema Neuro oriented x3 and no sensory deficits noted Neuro Narrative: Normal sensation over L3, L4, L5 and S1 dermatome. Gait observed and no foot drop. Sensorium / Orientation: alert Motor Exam: strength 5/5 throughout Deep Tendon Reflexes: Rt Patellar (L4): 2+, Lt Patellar (L4): 2+, Rt Ankle (S1): 2+ and Lt Ankle (S1): 2+ Deep Tendon Reflexes Back: Rt Patellar (L4): 2+, Lt Patellar (L4): 2+, Rt Ankle (S1): 2+ and Lt Ankle (S1): 2+ Plantar Reflex: Downgoing: bilateral Psych mental status grossly normal Skin no rashes or lesions noted and no wounds General Skin Exam: Negative for jaundice or pallor MDM MDM MDM Narrative Medical decision making narrative: Patient with muscular low back pain. Findings consistent with musculoskeletal strain. There is no concern for herniated disc or cauda equina. She was discharged home Discharge Plan Triage Chief Complaint: Back ED Provider: Erick Camacho Dx/Rx/DC Orders Clinical Impression: Pain in lower back Instructions: ED Back Pain (Acute or Chronic) Prescriptions: New hydrocodone-acetaminophen [hydrocodone-acetaminophen] 1 TABLET tablet 1 tab PO Q6H PRN PRN (Reason: Pain) 3 Days Qty: 10 RF: 0 naproxen 500 MG tablet 500 mg PO BID Qty: 14 RF: 0 No Action norgestimate-ethinyl estradiol [Sprintec (28)] 0.25-35 mg-mcg tablet 1 tab PO QDAY Qty: 84 RF: 4 buspirone 10 mg tablet 10 mg PO TID PRN (Reason: anxiety) 30 Days Qty: 30 RF: 3 prenat.vits,eddie,[id number] Tablet 1 tab PO DAILY RF: 0 citalopram 40 mg tablet 40 mg PO DAILY RF: 0 Primary Care Provider: Alecia Rogers Referrals: Alecia Rogers MD [Primary Care Provider] - 1 Week if not improving Activity Restrictions/Additional Instructions: Apply ice 8 times a day for the next 3 days. Disposition Disposition: Home, Self Care
[2021-11-17] MEDS: Lidocaine 5% Patch 1 PATCH TOPICAL (18:39)
[2021-11-17] MEDS: HYDROcodone Bitartrate/Apap 5/325 Tablet PO (18:39)
[2021-11-17] MEDS: Naproxen 250 MG Tablet 500 MG PO (18:39)
[2021-11-17 18:45] VITALS: BP 160/74; PULSE 84; RESP 16
== END 2021-11-17 18:47 | disposition home or self-care (01) ==
PROVIDERS: Emergency Provider Emergency Medicine; PCP Family Medicine; Visit Provider Emergency Medicine
DX: M54.50 Low back pain, unspecified (principal); F31.9 Bipolar disorder, unspecified; Z68.44 Body mass index [BMI] 60.0-69.9, adult; E66.9 Obesity, unspecified; J45.909 Unspecified asthma, uncomplicated; K21.9 Gastro-esophageal reflux disease without esophagitis; G47.33 Obstructive sleep apnea (adult) (pediatric); Z79.899 Other long term (current) drug therapy
CPT/HCPCS: 99284

== ENCOUNTER 2021-12-10 21:47 | Emergency (ER) | payer OTHER, SELFPAY ==
[2021-12-10 21:48] VITALS: BP 170/104; PULSE 78; RESP 15; TEMP 36.7; O2SAT 100; BMI 45.6
[2021-12-10 21:50] VITALS: BP 170/104; PULSE 78; RESP 15; TEMP 36.7; O2SAT 100
--- NOTE | 2021-12-10 22:15 | US_ITS ---
ACR Level 3 findings have been noted. An addendum which confirms receipt of the report will follow. EXAM: US ABDOMEN LIMITED, RIGHT UPPER QUADRANT CLINICAL INDICATION: PAIN-abd TECHNIQUE: Real-time ultrasound of the right upper quadrant with image documentation. This report was created using [employer] report generation technology. COMPARISON: None. FINDINGS: LIVER: Small echogenic lesion in the left hepatic lobe measuring 1 cm consistent with a small hemangioma. No intrahepatic biliary ductal dilation. GALLBLADDER: Multiple small gallstones. No gallbladder wall thickening is demonstrated. No pericholecystic fluid. Negative sonographic Pierce''s sign. COMMON BILE DUCT: Mildly prominent, measuring 7 mm. PANCREAS: The tail the pancreas is not well visualized due to bowel gas. RIGHT KIDNEY: Unremarkable. There is no hydronephrosis. No shadowing calculus. No focal lesion or perinephric collection is demonstrated. US/Gallbladder IMPRESSION: 1. Multiple small gallstones. No sonographic evidence of acute cholecystitis. 2. Mild prominence of the common bile duct measuring 7 mm, correlate for any laboratory evidence of acute biliary obstruction which could indicate a distal common duct stone. Electronically Signed: Bean Pierce MD at 0:19 EDT ,
--- NOTE | 2021-12-10 22:17 | EDS_ITS ---
HPI HPI - GI History of Present Illness Chief Complaint: Abd Pain Informant: patient Narrative Narrative: Increasing epigastric abdominal pain since 5 PM. She states she ate [employer] at noon. Nauseated forcing herself to throw up. No diarrhea. Normal formed stools since events happen. Positive flatus. 2 months by C- section with no complications. No history of gallbladder disease. She is on omeprazole paph-ich-oomlyzz at home for reflux symptoms. Denies any allergies. Denies any fevers. Currently nauseated. Prior similar symptoms: No PFSH PFSH Medical History Asthma Bipolar 1 disorder delivery delivered GERD (gastroesophageal reflux disease) Hemorrhoids History of EKG Infertility Lab test positive for detection of COVID-19 virus LUIS (obstructive sleep apnea) Panic attacks depression hypertension Home Medications prenat.vits,eddie,[id number] 1 tab PO DAILY 01/31/21 [History Last Taken 09/30/21 17:00] citalopram 40 mg PO DAILY 08/18/21 [History Last Taken 09/30/21 17:00] buspirone 10 mg tablet 10 mg PO TID PRN 30 Days #30 tab 11/12/21 [Rx Last Taken Unknown] norgestimate 0.25 mg-ethinyl estradiol 35 mcg tablet 1 tab PO QDAY #84 tab 11/12/21 [Rx Last Taken Unknown] ondansetron 4 mg PO Q6H PRN #10 tab 12/11/21 [Rx Last Taken Unknown] Allergy/AdvReac Type Severity Reaction Status Date / Time No Known Allergies Allergy Verified 10/13/21 10:54 Family History Father Brain tumor (benign) Depression Grandmother Hypertension Hyperlipemia Depression Mother Allergies Grandfather Asthma COPD (chronic obstructive pulmonary disease) Surgical History H/O oral surgery Hx of section Social History household members: family current occupational status: employed Smoking Status: Never smoker second hand exposure: No alcohol intake: never substance use type: does not use caffeine: Yes what type of physical activity do you participate in: aerobics frequency: 3-4 times per week seatbelt use: always do you feel safe at home: Yes additional social history: Fianc?-Andrzej ROS ROS ED Constitutional Constitutional ED: Denies chills, fever(s) or sweats Eyes Eyes: Denies change in vision ENT ENT ED: Denies dysphagia or sore throat Cardiovascular Cardiovascular: Denies chest pain, leg edema, palpitations or racing heartbeat Respiratory/Chest Respiratory/Chest: Denies cough, dyspnea or dyspnea on exertion Gastrointestinal Gastrointestinal: Reports abdominal pain and nausea; Denies diarrhea or vomiting Genitourinary Genitourinary ED: Denies dysuria, hematuria or urinary frequency Musculoskeletal Musculoskeletal: Denies back pain, extremity pain or neck pain Integumentary Denies rash or wounds Neurologic Neurologic: Denies headache(s), paresthesias or weakness EXAM Physical Exam Const Vital Signs: 12/10/21 21:48 12/10/21 21:50 12/11/21 00:40 Temperature 98.1 F 98.1 F Temperature Source Temporal Temporal Pulse Rate 78 78 84 Respiratory Rate 15 15 16 Blood Pressure 170/104 H 170/104 H 156/60 H Blood Pressure Mean 126 126 Pulse Ox 100 100 Oxygen Delivery Method Room Air Room Air Positive well nourished and well developed General Appearance ED: well developed and NAD HEENT Reports moist mucous membranes normocephalic and atraumatic Eyes PERRL, EOMs intact bilaterally and conjunctivae normal General Eye ED: Yes normal appearance of both eyes Neck no lymphadenopathy and supple General: Negative for tenderness Chest Wall Chest: Negative for tenderness Resp normal respiratory effort and normal air movement Effort and Inspection: symmetric chest movement; Negative for respiratory distress Cardio regular rate, regular rhythm and no murmurs Peripheral Pulses: pulses 2+ throughout GI normal to inspection, nondistended, normoactive bowel sounds GI Narrative: Tender to deep palpation epigastric region. Negative Pierce's or McBurney's tenderness. No guarding or rebound. Palpation: Negative for guarding or rebound tenderness present Back/Spine no CVA tenderness and no thoracic nor lumbar tenderness Extremity normal to inspection General Extremety ED: Negative for edema or tenderness General Extremity: Negative for edema Neuro oriented x3 and no sensory deficits noted Sensorium / Orientation: awake and alert Skin no rashes or lesions noted and no wounds MDM MDM MDM Narrative Medical decision making narrative: Patient tender epigastric region negative Pierce's or McBurney's tenderness. She is 2 months eating [employer] 5 hours prior to symptoms. Abdominal labs noted slight transaminitis with a normal lipase normal white count. Right upper quadrant ultrasound was available and obtain noting multiple gallstones with common bile duct 7 mm top normal range. She was treated with fluids Zofran Pepcid with improvement of symptoms. Discussed likely gallbladder symptoms with her history. She currently does not have any pain. I discussed biliary colic avoiding specific foods greasy foods dairy foods fatty foods. We will continue her omeprazole prescription for Zofran sent to her pharmacy. She is given follow-up with on-call surgeon Dr. Canada and also given follow-up with GI as needed. Return precautions discussed. All questions were answered. Lab Data Attestation: I reviewed the patient's lab results. Labs: Laboratory Results - last 24 hr 12/10/21 12/10/21 12/10/21 22:25 22:25 22:25 WBC 8.9 RBC 4.61 Hgb 12.5 Hct 38.8 MCV 84.2 MCH 27.1 MCHC 32.2 RDW Std Deviation 43.8 RDW Coeff of Juliann 14.2 Plt Count TNP MPV 10.8 Immature Gran % (Auto) 0.300 Neut % (Auto) 75.3 H Lymph % (Auto) 18.6 L Haakon % (Auto) 4.7 Eos % (Auto) 0.6 Baso % (Auto) 0.5 Absolute Neuts (auto) 6.7 Absolute Lymphs (auto) 1.65 Nucleated RBC % 0 Differential Comment SCANNED Platelet Estimate ADEQUATE Sodium 135 L Potassium 5.1 Chloride 102 Carbon Dioxide 29.0 Anion Gap 4 L BUN 14 Creatinine 0.66 Estim Creat Clear Calc 113.50 Est GFR (MDRD) Af Amer 142 Est GFR (MDRD) Non-Af 117 BUN/Creatinine Ratio 21.3 H Glucose 106 Calcium 9.0 Total Bilirubin 0.60 Direct Bilirubin < 0.05 AST 117 H ALT 72 H Alkaline Phosphatase 170 H Total Protein 7.7 Albumin 2.9 L Globulin 4.8 H Lipase 60 L Serum , Qual NEGATIVE Radiography Diagnostic Testing: Clinical Impression(s) from Imaging Studies Gallbladder Ultrasound 12/10/21 22:15 IMPRESSION: 1. Multiple small gallstones. No sonographic evidence of acute cholecystitis. 2. Mild prominence of the common bile duct measuring 7 mm, correlate for any laboratory evidence of acute biliary obstruction which could indicate a distal common duct stone. Electronically Signed: Bean Pierce MD at 0:19 EDT , ADDENDUM: 12/11/21 0033 IMPRESSION: 1. Multiple small gallstones. No sonographic evidence of acute cholecystitis. 2. Mild prominence of the common bile duct measuring 7 mm, correlate for any laboratory evidence of acute biliary obstruction which could indicate a distal common duct stone. N.B. : Leatha Holt RN, confirmed on 12/11/2021 00:27:02 (ET) that the healthcare facility has received the radiology report. Electronically Signed: Bean Pierce MD at 0:19 EDT , Discharge Plan Triage Chief Complaint: Abd Pain ED Provider: Johny Wolfe Dx/Rx/DC Orders Clinical Impression: Cholelithiasis, Biliary colic, Transaminitis Instructions: ED Gallstones with Biliary Colic Prescriptions: New ondansetron 4 mg tablet,disintegrating 4 mg PO Q6H PRN (Reason: nausea and vomiting) Qty: 10 RF: 0 No Action norgestimate-ethinyl estradiol [Sprintec (28)] 0.25-35 mg-mcg tablet 1 tab PO QDAY Qty: 84 RF: 4 buspirone 10 mg tablet 10 mg PO TID PRN (Reason: anxiety) 30 Days Qty: 30 RF: 3 prenat.vits,eddie,usk-ehyz-mzqnn Tablet 1 tab PO DAILY RF: 0 citalopram 40 mg tablet 40 mg PO DAILY RF: 0 Primary Care Provider: Alecia Rogers Referrals: Alecia Rogers MD [Primary Care Provider] - Friend,DO Eliezer [STAFF PHYSICIAN] - 1-2 Weeks Briana Canada MD [STAFF PHYSICIAN] - 3-5 Days Activity Restrictions/Additional Instructions: Multiple small gallstones. Common bile duct 7 mm. Normal lipase. Slight transaminitis. Avoid dairy greasy foods and fatty foods. Follow-up with surgery as an outpatient. Return if any worsening symptoms. Disposition Disposition: Home, Self Care Discharge Date/Time: 12/11/21 00:40
[2021-12-10] MEDS: Ondansetron 4 MG/2 ML Vial IV (22:31)
[2021-12-10] MEDS: 0.9% Normal Saline 1,000 ML 1000 ML IV (22:31)
[2021-12-10 22:34] LABS: Absolute Lymphocyte Count 1.65 X10^3/uL (0.83-4.51); Absolute Neutrophil Count 6.7 X10^3/uL (2.0-7.7); Basophil# 0.04 X10^3/uL; Basophil% 0.5 % (0-1); Eosinophil# 0.05 X10^3/uL; Eosinophils% 0.6 % (0-5); Hematocrit 38.8 % (37-47); Hemoglobin 12.5 g/dL (12.0-15.0); Lymphocyte # 1.65 X10^3/ul (0.83-4.51); Lymphocyte % 18.6 % (19-41); Mean Corp Hgb Conc 32.2 g/dL (32-36); Mean Corpuscular Hgb 27.1 pg (27.0-32.0); Mean Corpuscular Volume 84.2 fL (81-99); Mean Platelet Vol. 10.8 fl (6.2-12.0); Monocyte# 0.42 X10^3/uL; Monocyte% 4.7 % (0-10); NRBC Flagged by Analyzer 0 % (0-5); Neutrophil # 6.66 X10^3/uL (2.7-7.7); Neutrophil % 75.3 % (47-70); POSITIVE COUNT YES; RBC Distribution Width CV 14.2 % (11.6-14.6); RBC Distribution Width SD 43.8 fl (35.1-43.9); Red Blood Count 4.61 M/mm3 (4.2-5.4); White Blood Count 8.9 K/mm3 (4.4-11.0)
[2021-12-10 22:37] LABS: Differential Indicated SCAN CRITERIA MET
[2021-12-10 22:42] LABS: Internal QC Validated? YES +Cl - CLEAR BKGD; Pregnancy, Serum, hCG Quali. NEGATIVE Negative
[2021-12-10 22:53] LABS: AST(SGOT) 117 U/L (15-37); Alanine Aminotransfer ALT/SGPT 72 U/L (13-56); Albumin, Serum 2.9 g/dL (3.2-5.0); Alkaline Phosphatase 170 U/L (45-117); Anion Gap 4 (5-15); BUN 14 mg/dL (7-18); BUN/Creat Ratio 21.3 RATIO (10-20); Bilirubin, Direct < 0.05 mg/dL (0.00-0.30); Chloride 102 mmol/L (98-107); Creatinine, Serum 0.66 mg/dL (0.55-1.02); EST Glomerular Filtration Rate 117 mL/min (>60); Est Glom Filt Rate - Afr Amer 142 mL/min (>60); Globulin 4.8 g/dL (2.2-4.2); Glucose 106 mg/dL (74-106); Lipase 60 U/L (73-393); Potassium 5.1 mmol/L (3.5-5.1); Protein, Total 7.7 g/dL (6.4-8.2); Sodium Level 135 mmol/L (136-145)
[2021-12-10 22:54] LABS: Differential Comment SCANNED
[2021-12-10 22:56] LABS: Platelet Estimate ADEQUATE (ADEQ)
[2021-12-10] MEDS: Famotidine 200 MG/20 ML MDV 20 MG in 0.9% Normal Saline (Pres. free 8 ML 300 MG IV (22:56)
[2021-12-11 00:40] VITALS: BP 156/60; PULSE 84; RESP 16
== END 2021-12-11 00:40 | disposition home or self-care (01) ==
PROVIDERS: Emergency Provider Emergency Medicine; PCP Family Medicine; Visit Provider Emergency Medicine
DX: K80.70 Calculus of gallbladder and bile duct without cholecystitis without obstruction (principal); F31.9 Bipolar disorder, unspecified; J45.909 Unspecified asthma, uncomplicated; K21.9 Gastro-esophageal reflux disease without esophagitis; G47.33 Obstructive sleep apnea (adult) (pediatric); Z86.16 Personal history of COVID-19; Z79.899 Other long term (current) drug therapy
CPT/HCPCS: 76705; 80048; 80076; 83690; 84703; 85025; 96361; 96365; 96375; 99282; J7030; A4216; J2405; J3490

== ENCOUNTER → 2021-12-15 | Outpatient (CLI) | payer OTHER, SELFPAY ==
[2021-12-15 11:11] LABS: AST(SGOT) 20 U/L (15-37); Alanine Aminotransfer ALT/SGPT 39 U/L (13-56); Albumin, Serum 3.7 g/dL (3.2-5.0); Alkaline Phosphatase 158 U/L (45-117); Globulin 5.1 g/dL (2.2-4.2); Protein, Total 8.8 g/dL (6.4-8.2)
== END | disposition home or self-care (01) ==
LOC: PAVLAB 10:32
PROVIDERS: PCP Family Medicine; Referring Provider Surgery; Visit Provider Surgery
DX: R74.01 Elevation of levels of liver transaminase levels (principal)
CPT/HCPCS: 36415; 80076

== ENCOUNTER 2022-01-15 05:52 | Day surgery (SDC) | payer OTHER, SELFPAY ==
[2022-01-15] VITALS (7 sets, daily range): BP systolic 135–155; BP diastolic 79–92; PULSE 82–113; RESP 14–18; TEMP 36.2–37.1; O2SAT 93–100; BMI 46.5
[2022-01-15] MEDS: Lactated Ringers 1,000 ML 15 ML IV (06:34)
[2022-01-15 06:48] LABS: Internal QC Validated? YES +Cl - CLEAR BKGD; Pregnancy, Urine Negative Negative
[2022-01-15 06:52] LABS: International Normalized Ratio 0.9; Partial Thromboplast Time 28.9 Seconds (24.1-36.2); Prothrombin Time (Protime)PT. 12.1 SECONDS (11.7-14.9)
--- NOTE | 2022-01-15 07:09 | PCM.HP.STD ---
HPI - General HPI Narrative CEDRIC PRITCHETT, is a 26 F who presents for laparoscopic cholecystectomy due to symptomatic cholelithiasis. Patient initially went to the ER in late November due to epigastric pain and nausea and vomiting. Patient had a gallbladder ultrasound showed multiple small stones no gallbladder wall thickening or pericholecystic fluid 7 mm common bile duct, LFTs at that time were slightly elevated except for a normal total bili. Patient has been on omeprazole 40 mg p.o. daily due to her reflux. Patient states that since her previous office visit she has continued to have some nausea after eating but no real pain with that. Patient has been having some anxiety getting closer to surgery as well. ON LICENSE OF [facility] Medical History (Updated 01/08/22 @ 09:01 by Sadaf Flores) Anemia Anxiety Asthma Back pain Bipolar 1 disorder delivery delivered Chest pain CPAP (continuous positive airway pressure) dependence Depression Diabetes Gastric reflux Hemorrhoids History of EKG Hypertension Infertility Lab test positive for detection of COVID-19 virus Non-smoker LUIS (obstructive sleep apnea) Panic attacks depression hypertension Home Medications norgestimate 0.25 mg-ethinyl estradiol 35 mcg tablet (Sprintec (28)) 1 tab PO QDAY #84 tabs 11/12/21 [Rx Last Taken Unknown] ondansetron 4 mg disintegrating tablet 4 mg PO Q6H PRN nausea and vomiting #10 tabs 12/11/21 [Rx Last Taken Unknown] buspirone 10 mg tablet 15 mg PO TID PRN anxiety 12/15/21 [History Last Taken Unknown] citalopram 40 mg tablet 20 mg PO DAILY depression 12/15/21 [History Last Taken Unknown] omeprazole 40 mg capsule,delayed release 40 mg PO QDAY #30 caps 12/15/21 [Rx Last Taken Unknown] albuterol sulfate 90 mcg/actuation breath activated powder inhaler 1 inh inhalation PRN PRN SOB 01/08/22 [History Last Taken Unknown] ferrous sulfate 325 mg (65 mg iron) capsule,extended release 325 mg PO DAILY 01/08/22 [History Last Taken Unknown] fexofenadine 180 mg tablet (Verónica Allergy) 180 mg PO DAILY 01/08/22 [History Last Taken Unknown] fluticasone propionate 50 mcg/actuation nasal spray,suspension (Flonase Allergy Relief) 1 spray intranasal DAILY 01/08/22 [History Last Taken Unknown] Allergy/AdvReac Type Severity Reaction Status Date / Time No Known Allergies Allergy Verified 01/15/22 06:30 Family History Father Brain tumor (benign) Depression Grandmother Hypertension Hyperlipemia Depression Mother Allergies Grandfather Asthma COPD (chronic obstructive pulmonary disease) Surgical History H/O oral surgery Hx of section Social History household members: family current occupational status: employed Smoking Status: Never smoker second hand exposure: No alcohol intake: never substance use type: does not use caffeine: Yes what type of physical activity do you participate in: aerobics frequency: 3-4 times per week seatbelt use: always do you feel safe at home: Yes additional social history: Fianc?-Andrzej Vital Signs Vital Signs Vital Signs: 01/15/22 06:30 01/15/22 06:30 Temperature 98.3 F Temperature Source Temporal Pulse Rate 82 Respiratory Rate 16 Respiratory Pattern Normal Blood Pressure 155/92 H Blood Pressure Mean 113 Blood Pressure Source Monitor Blood Pressure Position Semi-Fowlers Blood Pressure Location Left Arm Pulse Ox 100 Oxygen Delivery Method Room Air Weight Weight: 271 lb 2.697 oz Body Mass Index (BMI) 46.5 Physical Exam Const alert, oriented x3 and no apparent distress Nutritional Appearance: obese HEENT normocephalic and head/scalp atraumatic Eyes Sclera: sclera normal Resp normal respiratory effort Cardio regular rate GI soft to palpation and non-tender; Negative for non-distended Palpation: Negative for guarding Extremity no clubbing, cyanosis or edema Neuro CN's II-XII intact bilaterally Psych mental status grossly normal Results Lab / Micro Data Labs: Laboratory Results - last 24 hr 01/15/22 06:15: Urine Test Negative 01/15/22 06:40: PT 12.1, INR 0.9, APTT 28.9 Assessment & Plan Assessment/Plan (1) Cholelithiasis: PLAN: Plan Reviewed the anatomy with the patient and discussed the procedure: laparoscopic cholecystectomy with cholangiograms, possible open. Review risks including but not limited to bleeding, infection, hernia, bile leak, retained gallstones requiring another procedure ERCP- Endoscopic Retrograde Cholangiopancreatography, injury to another organ (bile ducts, common bile duct, small bowel, etc.) and conversion to an open procedure. All questions were answered. Briana Canada M.D. Pager: [phone] [facility] [address] [place] [address] Office: [phone] Procedure Criteria Type of Procedure Procedure Type: Elective Elective Risks - COVID COVID Risk Discussion: The surgeon/proceduralist and patient have discussed in detail the risk of exposure to and/or potential harm posed by the COVID-19 virus with having a surgery/procedure at this time versus the risk of delaying the surgery/procedure. It is not possible to know either the risk of delaying the surgery or procedure or chance of getting an infection with perfect accuracy, but a joint decision was made between the patient and the surgeon/proceduralist to proceed at this time with the scheduled surgery/procedure as indicated on the consent form.
--- NOTE | 2022-01-15 07:30 | GALL_PTH ---
PATIENT: CEDRIC PRITCHETT LOC: [facility] U#:[id number] AGE/SX: 26/F ROOM: RE01/15/[address]: Dr. Briana Canada MD : 1995 BED: DIS: 01/15/2022 SPEC #: [id number] RECD: 01/15/22 09:55 STATUS: SHER REBill #: [id number] TITUS: 01/15/22 07:[address]: Briana Canada DEPT: SURGICAL PATHOLOGY RECD BY: Delon Gomez ENTERED: 01/15/22 10:50 SP TYPE: SELMA COREAS DR: Dr. Alecia Rogers MD Tissues: Gallbladder, NOS Procedures: Surgery Specimen Level III HEADER OPERATION: Laparoscopic cholecystectomy with IOC PRE-OP DIAGNOSIS: Cholelithiasis K80.20 TISSUE SUBMITTED: Gallbladder MICROSCOPIC DIAGNOSIS Gallbladder, cholecystectomy: Cholesterolosis, chronic cholecystitis and cholelithiasis. AM:hien 01/19/2022 MICROSCOPIC DESCRIPTION Slides are reviewed. GROSS DESCRIPTION Received is one container labeled with the patient's name and designated gallbladder. The specimen consists of a gallbladder measuring 6.5 cm in length and up to 3 cm in diameter. The external surface is pink-charles, smooth and glistening for the most part. Focally it is granular, hemorrhagic and contains cautery artifact. The gallbladder contains green-yellow mucoid bile and multiple yellow mulberry stones measuring in aggregate 3 x 2 x 0.4 cm and 0.1 to 0.5 cm in greatest dimension. The mucosa also shows several yellowish streaks consistent with cholesterolosis. The gallbladder wall measures up to 0.2 cm in thickness. Clinical Lab Technologist sections from the gallbladder and the cystic duct are submitted in one cassette. / SJ:hien 01/15/2022 TC:3 CPT: 52534
--- NOTE | 2022-01-15 07:30 | RAD_ITS ---
STUDY: INTRAOPERATIVE CHOLANGIOGRAM. REASON FOR EXAM: Female, 26 years old. LAPAROSCOPIC, CHOLECYSTECTOMY W/ IOC FLUOROSCOPY TIME (if supplied): ( 46 seconds ) minutes/seconds. A cine loop of 60 images was submitted. TECHNIQUE: Intraoperative cholangiogram was performed by the surgeon. Imaging was submitted. COMPARISON: None. FINDINGS: Knee, mild duct is not dilated. No intraluminal filling defect is seen. There is free flow of contrast into the duodenum. RAD/Cholangiogram/ O R,Initial IMPRESSION: Unremarkable intraoperative cholangiogram. Electronically Signed: Sergio Brown MD at 12:04 EDT ,
[2022-01-15] MEDS: Cefotetan 2 GM in 0.9% NS 100 ML IV (07:34)
[2022-01-15] MEDS: Bupivacaine Mpf 0.5% 30 ML VIAL (09:00)
--- NOTE | 2022-01-15 09:11 | PCM.OPRPT ---
Report of Operation Date of Procedure: 01/15/22 Pre-Operative Diagnosis: Cholelithiasis Post-Operative Diagnosis: Same Surgery/Procedure Performed:: Laparoscopic cholecystectomy Surgeon: Briana Canada Type of Anesthesia: General/Supplemental Anesthesiologist: Gurjit Walker Special Medications: Cefotetan 2 g IV x1 Specimen's removed: Gallbladder Estimated Blood Loss (mL): <10 cc Description of Procedure: Indications: this is a 26 year-old female who developed abdominal pain/nausea/vomiting and on workup was found to have cholelithiasis, with a 7 mm common bile duct, repeat LFTs were normal. Laparoscopic cholecystectomy was elected. Description procedure: The patient was placed on operating table in supine position. A timeout was completed verifying correct patient, procedure, site, position and special equipment prior to beginning procedure. General Anesthesia was induced. The abdomen was prepped and draped in usual sterile fashion. An incision was made in the natural skin line above the umbilicus. The fascia was elevated and incised. The peritoneum was elevated and incised. Entry into the peritoneum was confirmed visually and no bowel was noted in the vicinity of the incision. Tirado trocar was placed. The abdomen was insufflated with carbon dioxide to a pressure of 12-15 mmHg. Patient tolerated insufflation well. The laparoscope was then inserted and abdomen inspected. No injuries from initial trocar placement were noted. Additional trochars were then inserted in the following locations 5 mm trocar in the epigastrium and 2 more 5 mm trochars along the right costal margin. The abdomen was inspected no abnormalities were found. The table is placed in reverse Trendelenburg position with the right side up. The dome of the gallbladder was grasped with atraumatic grasper passed through the lateral port and retracted over the dome of the liver. Infundibulum was then grasped with atraumatic grasper through the midclavicular port and retracted to the right lower quadrant. This maneuver exposed Calot's triangle. The peritoneum overlying the gallbladder infundibulum was then incised and cystic duct and artery identified and circumferentially dissected. Ranfac catheter was used for cholangiograms. A small stab incision was made to accommodate the Ranfac. Small sludge was milked from the more distal cystic duct and suctioned. The cholangiogram showed good filling of the common bile duct into the duodenum with no filling defects, due to the good flow into the duodenum difficult to fill the left and right bile duct however able to faintly seen them with some contrast. The cystic duct and artery were then doubly clipped and divided close to the gallbladder. The gallbladder then dissected from its peritoneal attachments by electrocautery. Hemostasis was checked and the gallbladder and contained stones were removed using the endoscopic retrieval bag through the umbilical port. The gallbladder is passed off table as specimen. The gallbladder fossa was irrigated with saline and hemostasis obtained. There is no evidence of bleeding from the gallbladder fossa or cystic artery leakage of bile from the cystic duct stump. Secondary trochars removed under direct vision. No bleeding was noted the trocar sites. The laparoscope was withdrawn and umbilical trocar removed. The abdomen was allowed to collapse. The fascia of the 12 mm trocar was closed with a [id number] 0 Vicryl suture. The skin was closed with sutures of 4-0 Monocryl and Steri-Strips. The patient was extubated. The patient tolerated procedure well and was taken to the postanesthesia care unit in stable condition. Grafts/Implants Used: none
--- NOTE | 2022-01-15 09:14 | EX.PCM.DISCH ---
Discharge Instructions Diet Discharge Diet: Light diet - advance as tolerated Activity Discharge Activity: May Not Drive (while taking narcotic pain medications.) May shower in (days): 1 Lifting Restrictions: no lifting >20 lbs x 2 wks, no strenuous exercise for 4 wks Dressing / Incision Call your doctor if your incision/area has: Continuous Slow Oozing, Sudden Increased Bleeding, Increased Pain/ Swelling, Increased Redness, Foul Smelling Discharge and Swelling at the incision site Call your doctor if you observe: Fever of 101 or Higher Remove Dressing in: 2 days Cleanse incision/area with: Soap & Water Additional Dressing/Incision Instructions:: Steri-Strips will fall off in 7 to 10 days, if they do not fall off okay to remove after 10 days. Follow Up Care Please Follow Up With: Briana Canada MD When: Call the office for a follow-up appointment 2 weeks; after 5 PM and on the weekends call [phone] with any concerns. Test Results: Test results from this visit will be discussed in further detail at your follow-up appointment, if applicable. Discharge Plan Admission Attending Provider: Briana Canada Primary Care Provider: Alecia Rogers Discharge Orders/Prescriptions Prescriptions: New oxycodone-acetaminophen 5-325 mg tablet 1 tab PO Q6H PRN (Reason: pain) 3 Days Qty: 14 0RF Continued norgestimate-ethinyl estradiol [Sprintec (28)] 0.25-35 mg-mcg tablet 1 tab PO QDAY Qty: 84 4RF omeprazole 40 mg capsule,delayed release(DR/EC) 40 mg PO QDAY Qty: 30 3RF Rx Instructions: swallow whole; do not crush, chew, dissolve, cut, break buspirone 10 mg tablet 15 mg PO TID PRN (Reason: anxiety) citalopram 40 mg tablet 20 mg PO DAILY ondansetron 4 mg tablet,disintegrating 4 mg PO Q6H PRN (Reason: nausea and vomiting) Qty: 10 0RF fexofenadine [Verónica Allergy] 180 mg Tablet 180 mg PO DAILY fluticasone propionate [Flonase Allergy Relief] 50 mcg/actuation [place],Suspension 1 spray INTRANASAL DAILY Rx Instructions: administer into each nostril albuterol sulfate 90 mcg/actuation Aerosol Powdr Breath Activated 1 inh INHALATION PRN PRN (Reason: SOB) ferrous sulfate 325 mg (65 mg iron) Capsule, Extended Release 325 mg PO DAILY Referrals / Follow Up: Alecia Rogers MD [Primary Care Provider] - Disposition Disposition (needs filled in before D/C Order can be placed): Home, Self Care
[2022-01-15] MEDS: oxyCODONE 5 MG Tablet PO (10:43)
[2022-01-15] MEDS: Acetaminophen 325 MG Tablet PO (10:44)
== END 2022-01-15 11:50 | disposition home or self-care (01) ==
LOC: SDC 05:53 → AC 05:54
PROVIDERS: Anesthesiology; PCP Family Medicine; Referring Provider Surgery; Visit Provider Surgery
PROC: (CPT 47610; principal; 2022-01-15 07:10)
DX: K80.10 Calculus of gallbladder with chronic cholecystitis without obstruction (principal); F31.9 Bipolar disorder, unspecified; Z68.42 Body mass index [BMI] 45.0-49.9, adult; E11.9 Type 2 diabetes mellitus without complications; D64.9 Anemia, unspecified; F41.8 Other specified anxiety disorders; Z86.16 Personal history of COVID-19; I10 Essential (primary) hypertension; K21.9 Gastro-esophageal reflux disease without esophagitis; G47.33 Obstructive sleep apnea (adult) (pediatric); J45.909 Unspecified asthma, uncomplicated; Z79.899 Other long term (current) drug therapy; E66.9 Obesity, unspecified
CPT/HCPCS: 47563; 00790; 74300; 76000; 81025; 85610; 85730; 88304; J7120; J2405

== ENCOUNTER → 2022-10-26 | Outpatient (CLI) | payer OTHER, SELFPAY ==
[2022-10-26 10:11] LABS: Absolute Lymphocyte Count 1.87 X10^3/uL (0.83-4.51); Absolute Neutrophil Count 3.8 X10^3/uL (2.0-7.7); Basophil# 0.03 X10^3/uL; Basophil% 0.5 % (0-1); Eosinophil# 0.15 X10^3/uL; Eosinophils% 2.4 % (0-5); Hematocrit 39.3 % (37-47); Hemoglobin 12.3 g/dL (12.0-15.0); Lymphocyte # 1.87 X10^3/ul (0.83-4.51); Lymphocyte % 30.5 % (19-41); Mean Corp Hgb Conc 31.3 g/dL (32-36); Mean Corpuscular Hgb 26.2 pg (27.0-32.0); Mean Corpuscular Volume 83.8 fL (81-99); Mean Platelet Vol. 10.6 fl (6.2-12.0); Monocyte# 0.32 X10^3/uL; Monocyte% 5.2 % (0-10); NRBC Flagged by Analyzer 0 % (0-5); Neutrophil # 3.76 X10^3/uL (2.7-7.7); Neutrophil % 61.2 % (47-70); Platelet Count 259 K/mm3 (150-450); RBC Distribution Width CV 14.3 % (11.6-14.6); RBC Distribution Width SD 43.6 fl (35.1-43.9); Red Blood Count 4.69 M/mm3 (4.2-5.4); White Blood Count 6.1 K/mm3 (4.4-11.0)
[2022-10-26 11:10] LABS: ALB/GLOB Ratio 0.7 RATIO (0.9-2.4); AST(SGOT) 17 U/L (15-37); Alanine Aminotransfer ALT/SGPT 28 U/L (13-56); Albumin, Serum 3.1 g/dL (3.2-5.0); Alkaline Phosphatase 109 U/L (45-117); Anion Gap 4 (5-15); BUN 10 mg/dL (7-18); BUN/Creat Ratio 17.3 RATIO (10-20); Calcium,Total 8.9 mg/dL (8.5-10.1); Chloride 104 mmol/L (98-107); Cholesterol 239 mg/dL (200); Creatinine, Serum 0.58 mg/dL (0.55-1.02); EST Glomerular Filtration Rate 135 mL/min (>60); Est Glom Filt Rate - Afr Amer 163 mL/min (>60); Globulin 4.4 g/dL (2.2-4.2); Glucose 89 mg/dL (74-106); High Density Lipoprotein 50 mg/dL; Potassium 4.1 mmol/L (3.5-5.1); Protein, Total 7.5 g/dL (6.4-8.2); Sodium Level 135 mmol/L (136-145); Triglycerides 193 mg/dL; Very Low Density Lipoprotein 39 mg/dL (5-40)
== END | disposition home or self-care (01) ==
LOC: MTLAB 08:48
PROVIDERS: PCP Family Medicine; Referring Provider Family Medicine; Visit Provider Family Medicine
DX: Z00.00 Encounter for general adult medical examination without abnormal findings (principal); O24.419 Gestational diabetes mellitus in pregnancy, unspecified control; Z3A.00 Weeks of gestation of pregnancy not specified
CPT/HCPCS: 36415; 80053; 80061; 83036; 85025

== ENCOUNTER → 2022-11-15 | Outpatient (CLI) | payer OTHER, SELFPAY | END | disposition home or self-care (01) | LOC: LABSPEC 16:55 | PROVIDERS: PCP Family Medicine; Referring Provider Nurse Practitioner Women's Health; Visit Provider Nurse Practitioner Women's Health | DX: N89.8 Other specified noninflammatory disorders of vagina (principal) | CPT/HCPCS: 87070; 87205 ==

== ENCOUNTER 2023-02-01 17:38 | Emergency (ER) | payer OTHER, SELFPAY ==
[2023-02-01 17:38] VITALS: BP 161/78; PULSE 75; RESP 16; TEMP 36.8; O2SAT 99; BMI 49.9
--- NOTE | 2023-02-01 18:03 | EDS_ITS ---
HPI History of Present Illness Chief Complaint: Shortness of Breath Informant: patient Narrative Narrative: Patient presents with symptoms of intermittent dyspnea. Patient states she has been having some dyspnea and occasionally burning in her throat off and on for a while. She has severe anxiety. About 2 or so weeks ago she was started on propanolol and what sounds like Ativan for anxiety. She just lost her grandfather this past week and that his really pumped up her anxiety. She states when she gets a panic attack she will get heart rates in the high 100s. She has never had a DVT or PE. No family history of it. No travel surgery immobilization. But she is on control. Her father did have a heart attack somewhere in his mid 40s. She is a non-smoker. No treatment for cholesterol blood pressure or diabetes. She did have an A1c within the last couple months that was in the low 5 range. She states she is not sure if this is anxiety or her reflux which she also has or if it is an illness. There are times she feels fine other times she feels more short of breath. [facility] Medical History Anemia Anxiety Asthma Back pain Bipolar 1 disorder delivery delivered Chest pain CPAP (continuous positive airway pressure) dependence Depression Diabetes Gastric reflux Hemorrhoids History of EKG Hypertension Infertility Lab test positive for detection of COVID-19 virus Non-smoker LUIS (obstructive sleep apnea) Panic attacks depression hypertension Home Medications omeprazole 40 mg capsule,delayed release 40 mg PO QDAY #30 caps 12/15/21 [Rx Last Taken Unknown] fluticasone propionate 50 mcg/actuation nasal spray,suspension (Flonase Allergy Relief) 1 spray intranasal DAILY 01/08/22 [History Last Taken Unknown] buspirone 10 mg tablet 15 mg (1.5 x 10 mg) PO TID PRN anxiety #30 tabs 11/15/22 [Rx Last Taken Unknown] cetirizine 10 mg disintegrating tablet (Children's Zyrtec Allergy) 10 mg PO DAILY 11/15/22 [History Last Taken Unknown] citalopram 40 mg tablet 20 mg (1/2 x 40 mg) PO DAILY depression #90 tabs 11/15/22 [Rx Last Taken Unknown] fluconazole 150 mg tablet 150 mg PO .COMPLEX #2 tabs 11/15/22 [Rx Last Taken Unknown] montelukast 10 mg tablet (Singulair) 10 mg PO DAILY 11/15/22 [History Last Taken Unknown] norgestimate 0.25 mg-ethinyl estradiol 35 mcg tablet (Sprintec (28)) 1 tab PO QDAY #84 tabs 12/20/22 [Rx Last Taken Unknown] Allergy/AdvReac Type Severity Reaction Status Date / Time No Known Allergies Allergy Verified 02/01/23 17:40 Family History Father Brain tumor (benign) Depression Grandmother Hypertension Hyperlipemia Depression Mother Allergies Grandfather Asthma COPD (chronic obstructive pulmonary disease) Surgical History H/O oral surgery Hx of section S/P laparoscopic cholecystectomy Social History household members: family current occupational status: employed 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 Some specific details below. Constitutional: No recent fevers or chills. No malaise. EYE: No discharge, visual complaints, or pain. ENT: No difficulty swallowing. No swelling. No pain. She has had a sour taste/burning consistent with her reflux. CV: See history of present illness. Respiratory: See history of present illness. GI: No abdominal pain. No nausea vomiting diarrhea. No blood in stool. : No frequency dysuria or hematuria. Musculoskeletal: No recent trauma. No pains. No swelling. Skin: No rash. Nondiaphoretic. Neuro: No weakness or numbness. Endocrine: No polyuria or polydipsia. EXAM Physical Exam Narrative Exam Narrative: CONSTITUTIONAL: Patient is nontoxic in appearance. The patient looks comfortable. Work of breathing looks normal. HEENT: No notable trauma. Mucous membranes moist. No sinus tenderness. No indication of pain with swallowing. No swelling or mass. EYES: No conjunctival injection. No proptosis. No pallor. NECK:No JVD. No stridor. CARDIOVASCULAR: Regular rate. Regular rhythm. No notable murmur. No JVD. She is not tachycardic. RESPIRATORY: No respiratory distress. Breathing is unlabored. No wheezes. No rhonchi. No rales. No pain with a deep breath. No chest wall tenderness. Saturations are normal at 99% on room air showing no hypoxia. GASTROINTESTINAL: Not distended. Bowel sounds are normal. No tenderness. No guarding. No rebound. No palpable mass. No bruit is heard. GENITOURINARY: No tenderness over the bladder. No CVA tenderness. MUSCULOSKELETAL: Atraumatic. No peripheral edema. No cord. No tenderness along the deep venous system. No asymmetry. No distended veins. NEUROLOGICAL: Patient is alert and appropriate. No focal deficit noted. SKIN: No noted rashes. No diaphoresis. PSYCHIATRIC: Patient is calm. Mood is appropriate. Const Vital Signs: 02/01/23 17:38 02/01/23 18:14 02/01/23 18:18 Temperature 98.2 F Temperature Source Temporal Pulse Rate 75 75 Respiratory Rate 16 20 H Respiratory Effort Normal Non-Labored Respiratory Depth Normal Respiratory Pattern Normal Blood Pressure 161/78 H Blood Pressure Mean 105 Pulse Ox 99 Oxygen Delivery Method Room Air Room Air MDM MDM MDM Narrative Medical decision making narrative: Patient CBC is normal. Patient's electrolytes are normal. Glucose is minimally up at 122. This can be followed. Patient's troponin is negative at 4. Patient's is negative. Patient's D-dimer is negative at 0.32. My independent interpretation of patient's single view chest x-ray shows no acute process. Final reading is normal x-ray examination of the chest. I rechecked the patient. She feels that the breathing treatment did help her breathing. She has albuterol at home but states she is not sure exactly the right way to use it. I will see if we can get her a spacer to help. She will follow-up with her primary physician. Lab Data Attestation: I reviewed the patient's lab results. Labs: Laboratory Results - last 24 hr 02/01/23 18:13 WBC 9.2 RBC 4.73 Hgb 12.4 Hct 39.2 MCV 82.9 MCH 26.2 L MCHC 31.6 L RDW Std Deviation 42.0 RDW Coeff of Juliann 14.0 Plt Count 281 MPV 10.7 Immature Gran % (Auto) 0.300 Neut % (Auto) 66.7 Lymph % (Auto) 25.9 [place] % (Auto) 5.0 Eos % (Auto) 1.7 Baso % (Auto) 0.4 Absolute Neuts (auto) 6.1 Absolute Lymphs (auto) 2.38 Nucleated RBC % 0 D-Dimer Quant (PE/DVT) 0.32 Sodium 136 Potassium 4.0 Chloride 104 Carbon Dioxide 26.0 Anion Gap 6 BUN 10 Creatinine 0.62 Estim Creat Clear Calc 119.78 Est GFR (MDRD) Af Amer 150 Est GFR (MDRD) Non-Af 124 BUN/Creatinine Ratio 16.1 Glucose 122 H Calcium 9.0 Troponin I High Sens 4 Serum , Qual NEGATIVE Radiography Diagnostic Testing: Clinical Impression(s) from Imaging Studies Chest X-Ray 02/01/23 18:05 IMPRESSION: Normal x-ray examination of the chest. Electronically Signed: Tae Espinoza MD at 18:26 EDT , EKG Initial EKG: Comments: My independent interpretation of the patient's EKG done for dyspnea shows a normal sinus rhythm with normal rate at 74. No ectopy. No acute ST elevation or depression. OR interval, QRS duration and QTc are normal. Discharge Plan Triage Chief Complaint: Shortness of Breath Other Complaint: Anxiety ED Provider: Sid Ramirez Dx/Rx/DC Orders Clinical Impression: Bronchospasm, Dyspnea, Chest pain Instructions: ED Chest Pain, Uncertain Cause Prescriptions: No Action omeprazole 40 mg capsule,delayed release(DR/EC) 40 mg PO QDAY Qty: 30 3RF Rx Instructions: swallow whole; do not crush, chew, dissolve, cut, break Children's Zyrtec Allergy 10 mg tablet,disintegrating 10 mg PO DAILY montelukast [Singulair] 10 mg tablet 10 mg PO DAILY buspirone 10 mg tablet 15 mg PO TID PRN (Reason: anxiety) Qty: 30 1RF citalopram 40 mg tablet 20 mg PO DAILY Qty: 90 3RF fluconazole 150 mg tablet 150 mg PO .COMPLEX Qty: 2 0RF Rx Instructions: 150 mg PO take one po now and repeat in 3 days fluticasone propionate [Flonase Allergy Relief] 50 mcg/actuation [place],Suspension 1 spray INTRANASAL DAILY Rx Instructions: administer into each nostril norgestimate-ethinyl estradiol [Sprintec (28)] 0.25-35 mg-mcg tablet 1 tab PO QDAY Qty: 84 4RF Primary Care Provider: Alecia Rogers Referrals: Alecia Rogers MD [Primary Care Provider] - 3-5 Days Disposition Disposition: Home, Self Care
--- NOTE | 2023-02-01 18:05 | RAD_ITS ---
STUDY: X-RAY CHEST REASON FOR EXAM: Female, 27 years old. SOB TECHNIQUE: Single AP portable view of the chest. COMPARISON: September 03, 2018 FINDINGS: The lungs are clear and expanded. There is no demonstrated pleural abnormality. Normal size heart. Normal mediastinum and eduar. Normal visualized pulmonary arteries. Normal visualized aortic arch and descending thoracic aorta. Normal visualized thoracic spine. Normal visualized ribs, clavicles, and shoulders. There is no demonstrated abnormality of the visualized soft tissue structures of the upper abdomen. RAD/Chest 1 View (Portable) IMPRESSION: Normal x-ray examination of the chest. Electronically Signed: Tae Espinoza MD at 18:26 EDT ,
[2023-02-01] MEDS: Ipratropium/Albuterol Sulfate 3 ML AMPUL.NEB INHALATION (18:12)
[2023-02-01 18:14] VITALS: PULSE 75; RESP 20
[2023-02-01 18:25] LABS: Absolute Lymphocyte Count 2.38 X10^3/uL (0.83-4.51); Absolute Neutrophil Count 6.1 X10^3/uL (2.0-7.7); Basophil# 0.04 X10^3/uL; Basophil% 0.4 % (0-1); Eosinophil# 0.16 X10^3/uL; Eosinophils% 1.7 % (0-5); Hematocrit 39.2 % (37-47); Hemoglobin 12.4 g/dL (12.0-15.0); Lymphocyte # 2.38 X10^3/ul (0.83-4.51); Lymphocyte % 25.9 % (19-41); Mean Corp Hgb Conc 31.6 g/dL (32-36); Mean Corpuscular Hgb 26.2 pg (27.0-32.0); Mean Corpuscular Volume 82.9 fL (81-99); Mean Platelet Vol. 10.7 fl (6.2-12.0); Monocyte# 0.46 X10^3/uL; NRBC Flagged by Analyzer 0 % (0-5); Neutrophil # 6.12 X10^3/uL (2.7-7.7); Neutrophil % 66.7 % (47-70); Platelet Count 281 K/mm3 (150-450); Red Blood Count 4.73 M/mm3 (4.2-5.4); White Blood Count 9.2 K/mm3 (4.4-11.0)
[2023-02-01 18:47] LABS: Internal QC Validated? YES +Cl - CLEAR BKGD; Pregnancy, Serum, hCG Quali. NEGATIVE Negative
[2023-02-01 18:51] LABS: Anion Gap 6 (5-15); BUN 10 mg/dL (7-18); BUN/Creat Ratio 16.1 RATIO (10-20); Chloride 104 mmol/L (98-107); Creatinine, Serum 0.62 mg/dL (0.55-1.02); EST Glomerular Filtration Rate 124 mL/min (>60); Est Glom Filt Rate - Afr Amer 150 mL/min (>60); Estimated Creatinine Clearance 119.78 ml/min; Glucose 122 mg/dL (74-106); Sodium Level 136 mmol/L (136-145)
[2023-02-01 19:09] LABS: D-Dimer Quantitative (DVT/PE) 0.32 FEU/ug/m (0.27-0.49)
[2023-02-01 19:21] LABS: Troponin-I HS 4 pg/mL (3.0-54.0)
[2023-02-01 19:54] VITALS: BP 123/72
[2023-02-01] MEDS: Albuterol Sulfate 8 gm Inhaler (60 puffs) 2 PUFF INHALATION (19:54)
[2023-02-01 19:57] VITALS: BP 123/72; PULSE 62; RESP 14; O2SAT 98
== END 2023-02-01 20:00 | disposition home or self-care (01) ==
PROVIDERS: Emergency Provider Emergency Medicine; PCP Family Medicine; Visit Provider Emergency Medicine
DX: F41.9 Anxiety disorder, unspecified (principal); E11.9 Type 2 diabetes mellitus without complications; I10 Essential (primary) hypertension; Z79.3 Long term (current) use of hormonal contraceptives; K21.9 Gastro-esophageal reflux disease without esophagitis; Z79.899 Other long term (current) drug therapy; F32.A Depression, unspecified; Z99.89 Dependence on other enabling machines and devices; J45.909 Unspecified asthma, uncomplicated; Z90.49 Acquired absence of other specified parts of digestive tract
CPT/HCPCS: 71045; 80048; 84484; 84703; 85025; 85379; 93005; 94640; 99283; A4216

== ENCOUNTER → 2023-05-27 | Outpatient (CLI) | payer OTHER, SELFPAY ==
[2023-05-27 10:36] LABS: Cholesterol 162 mg/dL (200); High Density Lipoprotein 49 mg/dL; Triglycerides 99 mg/dL; Very Low Density Lipoprotein 20 mg/dL (5-40)
[2023-05-27 10:52] LABS: Hemoglobin A1c 5.1 % (3.8-5.6)
== END | disposition home or self-care (01) ==
LOC: MTLAB 09:10
PROVIDERS: PCP Family Medicine; Referring Provider Family Medicine; Visit Provider Family Medicine
DX: O24.419 Gestational diabetes mellitus in pregnancy, unspecified control (principal); E78.5 Hyperlipidemia, unspecified; O99.280 Endocrine, nutritional and metabolic diseases complicating pregnancy, unspecified trimester; Z3A.00 Weeks of gestation of pregnancy not specified
CPT/HCPCS: 36415; 80061; 83036

== ENCOUNTER 2024-02-02 18:41 | Emergency (ER) | payer OTHER, SELFPAY ==
[2024-02-02 18:43] VITALS: BP 177/110; PULSE 110; RESP 16; TEMP 36.1; O2SAT 100; BMI 53.0
--- NOTE | 2024-02-02 19:00 | EDS_ITS ---
HPI History of Present Illness Chief Complaint: Chest Pain Informant: patient Onset/Context/Timing Onset: Today Activity at onset: gradual Timing: Continuous Quality: Positive for Aching and Burning Location: Substernal and Left Chest Worsened By: Exertion Relieved By: Nothing Associated Symptoms: Positive for Nausea, Dyspnea, Acid Reflux and Palpitations; Negative for Vomiting, Diaphoresis, Cough, Fever or Lightheadedness Narrative Narrative: Patient presents with chest pain that began today. Patient states that she ate a sandwich with banana peppers on it and her pain began after that. Patient describes her pain as burning. Patient states it is mainly over the lower substernal area. Patient states she has also has some aching in the left side of her chest. Patient states her pain was worse with any exertion. Patient states nothing seems to help with it. Patient states she took Tums with no improvement. Patient admits to some nausea but denies any vomiting. Patient denies any diaphoresis. Patient states he did feel short of breath and felt like her heart was beating fast at times. [facility] Medical History Ulcer of gingiva Depression Anxiety Diabetes Anemia Back pain Gastric reflux Non-smoker CPAP (continuous positive airway pressure) dependence Hypertension Chest pain hypertension History of EKG delivery delivered depression Lab test positive for detection of COVID-19 virus LUIS (obstructive sleep apnea) Infertility Panic attacks Bipolar 1 disorder Asthma Hemorrhoids Home Medications ?Medication ?Instructions ?Recorded ?Last Taken ?Type citalopram 20 mg tablet 20 mg PO DAILY depression #14 tabs 01/04/24 Unknown Rx hydroxyzine pamoate 50 mg capsule 50 mg PO QHS #30 caps 01/04/24 Unknown Rx metoprolol tartrate 25 mg tablet 25 mg PO QDAY 01/04/24 Unknown History venlafaxine 75 mg tablet 75 mg PO DAILY #30 tabs 01/04/24 Unknown Rx pantoprazole 40 mg tablet,delayed 40 mg PO DAILY #30 tabs 02/02/24 Unknown Rx release Allergy/AdvReac Type Severity Reaction Status Date / Time No Known Allergies Allergy Verified 02/02/24 18:43 Family History (Updated 02/02/24 @ 19:[address] 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 Smoking Status: Never smoker second hand exposure: No alcohol intake: never substance use type: does not use caffeine: Yes what type of physical activity do you participate in: aerobics frequency: 3-4 times per week seatbelt use: always do you feel safe at home: Yes additional social history: Fianc?-Andrzej ROS ROS ED Constitutional Constitutional ED: Denies chills or fever(s) Eyes Eyes: Denies blurry vision or change in vision ENT ENT ED: Denies rhinorrhea or sore throat Cardiovascular Cardiovascular: Reports chest pain and palpitations Respiratory/Chest Respiratory/Chest: Reports dyspnea; Denies cough Gastrointestinal Gastrointestinal: Reports nausea; Denies vomiting Genitourinary Genitourinary ED: Denies dysuria or hematuria Musculoskeletal Musculoskeletal: Denies back pain or neck pain Integumentary Denies abscess or rash Neurologic Neurologic: Denies headache(s) or weakness Allergic/Immunologic Allergic/Immunologic ED: Denies mouth swelling or urticaria EXAM Physical Exam Const Vital Signs: 02/02/24 18:43 02/02/24 18:59 02/02/24 19:21 Temperature 96.9 F L Temperature Source Temporal Pulse Rate 110 H Respiratory Rate 16 Respiratory Effort Normal Non-Labored Blood Pressure 177/110 H Blood Pressure Mean 132 Pulse Ox 100 Oxygen Delivery Method Room Air Room Air 02/02/24 19:42 02/02/24 20:00 Temperature Temperature Source Pulse Rate 81 87 Respiratory Rate 15 24 H Respiratory Effort Blood Pressure 97/56 L 93/60 Blood Pressure Mean 69 71 Pulse Ox 97 96 Oxygen Delivery Method Room Air Room Air Positive well nourished, well developed and obese General Appearance ED: well developed and NAD Nutritional Appearance: obese HEENT Reports moist mucous membranes Neck supple and no JVD Resp normal respiratory effort and clear to auscultation bilaterally Cardio regular rate and regular rhythm GI soft to palpation, non-tender and non-distended Extremity normal to inspection General Extremety ED: Negative for edema or tenderness General Extremity: Negative for edema Neuro oriented x3, CN's II-XII intact bilaterally and no sensory deficits noted Sensorium / Orientation: awake and alert Motor Exam: strength 5/5 throughout Psych mental status grossly normal Mood & Affect: anxious Heart Score History: Slightly/Non-Suspicious ECG: Normal Age: </= 45 years Risk Factors: 1 or 2 Risk Factors Troponin: </= Normal Limit Score: 1 MDM MDM MDM Narrative Medical decision making narrative: Differential diagnosis includes cardiac dysrhythmia, cardiac ischemia, pneumonia, gastroesophageal reflux disease, gastritis, pancreatitis, and anxiety. EKG will be obtained to assess for cardiac dysrhythmia and cardiac ischemia. Chest x-ray will be obtained to assess for pneumonia and pneumothorax. CBC will be obtained to assess for leukocytosis and anemia. Basic metabolic profile will be obtained to assess for electrolyte abnormality and renal function. Lipase will be obtained to assess for pancreatitis. High- sensitivity troponin will be obtained to assess for cardiac ischemia. Lab Data Attestation: I reviewed the patient's lab results. Lab results narrative: CBC was reviewed. There is a slight anemia with a hemoglobin of 11.5. The remainder is within normal limits. Basic metabolic profile was reviewed and was within normal limits. High-sensitivity troponin was reviewed and was normal at 4. Labs: Laboratory Results - last 24 hr 02/02/24 19:19 WBC 9.1 RBC 4.89 Hgb 11.5 L Hct 37.0 MCV 75.7 L MCH 23.5 L MCHC 31.1 L RDW Std Deviation 42.8 RDW Coeff of Juliann 15.9 H Plt Count 264 MPV 10.3 Immature Gran % (Auto) 0.400 Neut % (Auto) 69.4 Lymph % (Auto) 23.8 [place] % (Auto) 4.9 Eos % (Auto) 1.1 Baso % (Auto) 0.4 Absolute Neuts (auto) 6.3 Absolute Lymphs (auto) 2.15 Nucleated RBC % 0 Sodium 137 Potassium 3.7 Chloride 102 Carbon Dioxide 27.0 Anion Gap 8 BUN 13 Creatinine 0.64 Estim Creat Clear Calc 186.91 Est GFR (MDRD) Af Amer 143 Est GFR (MDRD) Non-Af 119 BUN/Creatinine Ratio 20.3 H Glucose 103 Calcium 9.2 Troponin I High Sens 4 Radiography Chest X-Ray - ED: 2 View, Read by ED Physician, Read by Radiologist and No Acute Disease Diagnostic Testing: Clinical Impression(s) from Imaging Studies Chest X-Ray 02/02/24 19:06 IMPRESSION: No radiographic evidence of acute cardiopulmonary disease. Electronically Signed: Pop Loera MD at 20:23 EDT Reading Location ID and State: [facility] / [place] Tel , Service support , [place] and lateral chest x-ray was obtained. There are 2 views. On my independent interpretation, lung palacios are clear. There is normal cardiac silhouette. Bony thorax is normal. There is no acute process noted. Radiologist also interpreted the x-ray and agrees. EKG Initial EKG: Attestation: I personally reviewed and interpreted this EKG as follows: Interpretation: Sinus Rhythm (93) and No Acute Injury Pattern Comments: EKG was obtained. On my independent interpretation, it showed a normal sinus rhythm with a rate of 93. [place] interval, QRS interval, and QTc intervals were all normal. [place] was normal. There are no acute ST or T wave changes. Treatment and Re-Evaluation :: Patient was given a GI cocktail. Patient felt better on reevaluation. Patient had a HEART score of 1. Patient was advised that this is low risk for acute cardiac event. Patient states her nausea was starting to come back. Patient was given a dose of Protonix here. Patient was instructed to stop taking her omeprazole and was given a prescription for Protonix to take instead. Patient was instructed to follow-up with her primary care physician in 5 to 7 days. Patient understood and was agreeable with plan. All questions were answered. Discharge Plan Triage Chief Complaint: Chest Pain ED Provider: Lai Mcguire Dx/Rx/DC Orders Clinical Impression: Chest pain, GERD (gastroesophageal reflux disease) Instructions: ED Chest Pain, Uncertain Cause, ED GERD (Adult) Prescriptions: New pantoprazole 40 mg tablet,delayed release (DR/EC) 40 mg PO DAILY Qty: 30 0RF Discontinued omeprazole 40 mg capsule,delayed release(DR/EC) 40 mg PO QDAY Qty: 30 3RF Rx Instructions: swallow whole; do not crush, chew, dissolve, cut, break No Action metoprolol tartrate 25 mg tablet 25 mg PO QDAY venlafaxine 75 mg tablet 75 mg PO DAILY Qty: 30 1RF citalopram 20 mg tablet 20 mg PO DAILY Qty: 14 0RF hydroxyzine pamoate 50 mg capsule 50 mg PO QHS Qty: 30 1RF Stand Alone Forms: Work / School Excuse Primary Care Provider: Alecia Rogers Referrals: Alecia Rogers MD [Primary Care Provider] - 5-7 Days Print Language: Macedonian Disposition Disposition: Home, Self Care
--- NOTE | 2024-02-02 19:06 | EKG12_ITS ---
Test Reason : DYSRHYTHMIA Blood Pressure : / mmHG Vent. Rate : 093 BPM Atrial Rate : 093 BPM P-R Int : 158 ms QRS Dur : 098 ms QT Int : 362 ms P-R-T Axes : 038 003 016 degrees QTc Int : 450 ms Normal sinus rhythm Normal ECG Confirmed by BERLIN FORD, ORQUIDEA ([id number]), content editor BANDAR DAWSON ([id number]) on 02/06/2024 11:10:15 AM Referred By: CAIT Confirmed By:ORQUIDEA SLADE MD
--- NOTE | 2024-02-02 19:06 | RAD_ITS ---
EXAM: XR CHEST, 2 VIEWS CLINICAL INDICATION: chest pain TECHNIQUE: Frontal and lateral views of the chest. COMPARISON: 02/01/2023 FINDINGS: LUNGS AND PLEURAL SPACES: Unremarkable. No consolidation or edema. No pneumothorax. No effusion. HEART: Unremarkable. Cardiac silhouette not enlarged. MEDIASTINUM: Central airways and mediastinal contour are unremarkable. BONES/JOINTS: Unremarkable. No acute fracture. SOFT TISSUES: Unremarkable. RAD/Chest PA and Lateral IMPRESSION: No radiographic evidence of acute cardiopulmonary disease. Electronically Signed: Pop Loera MD at 20:23 EDT ,
[2024-02-02] MEDS: Aspirin 81 MG TAB.CHEW 324 MG PO (19:38)
[2024-02-02 19:42] VITALS: BP 97/56; PULSE 81; RESP 15; O2SAT 97
[2024-02-02 19:57] LABS: Absolute Lymphocyte Count 2.15 X10^3/uL (0.83-4.51); Absolute Neutrophil Count 6.3 X10^3/uL (2.0-7.7); Basophil# 0.04 X10^3/uL; Basophil% 0.4 % (0-1); Eosinophils% 1.1 % (0-5); Hemoglobin 11.5 g/dL (12.0-15.0); Lymphocyte # 2.15 X10^3/ul (0.83-4.51); Lymphocyte % 23.8 % (19-41); Mean Corp Hgb Conc 31.1 g/dL (32-36); Mean Corpuscular Hgb 23.5 pg (27.0-32.0); Mean Corpuscular Volume 75.7 fL (81-99); Mean Platelet Vol. 10.3 fl (6.2-12.0); Monocyte# 0.44 X10^3/uL; Monocyte% 4.9 % (0-10); NRBC Flagged by Analyzer 0 % (0-5); Neutrophil # 6.28 X10^3/uL (2.7-7.7); Neutrophil % 69.4 % (47-70); Platelet Count 264 K/mm3 (150-450); RBC Distribution Width CV 15.9 % (11.6-14.6); RBC Distribution Width SD 42.8 fl (35.1-43.9); Red Blood Count 4.89 M/mm3 (4.2-5.4); White Blood Count 9.1 K/mm3 (4.4-11.0)
[2024-02-02 20:00] VITALS: BP 93/60; PULSE 87; RESP 24; O2SAT 96
[2024-02-02] MEDS: Mag /Aluminum/Simeth WCH UDC 30 ML ORAL.SUSP PO (20:05)
[2024-02-02] MEDS: Lidocaine 2% Viscous15 ML UDC 15 ML PO (20:05)
[2024-02-02 20:15] LABS: Anion Gap 8 (5-15); BUN 13 mg/dL (7-18); BUN/Creat Ratio 20.3 RATIO (10-20); Calcium,Total 9.2 mg/dL (8.5-10.1); Chloride 102 mmol/L (98-107); Creatinine, Serum 0.64 mg/dL (0.55-1.02); EST Glomerular Filtration Rate 119 mL/min (>60); Est Glom Filt Rate - Afr Amer 143 mL/min (>60); Estimated Creatinine Clearance 186.91 ml/min; Glucose 103 mg/dL (74-106); Potassium 3.7 mmol/L (3.5-5.1); Sodium Level 137 mmol/L (136-145); Troponin-I HS 4 pg/mL (3.0-54.0)
[2024-02-02 21:00] VITALS: BP 112/56; PULSE 79; RESP 22; O2SAT 100
[2024-02-02 21:10] VITALS: BP 125/51; PULSE 87; RESP 16; TEMP 36.8; O2SAT 96
[2024-02-02] MEDS: Pantoprazole Sodium 40 MG Tablet PO (21:13)
== END 2024-02-02 21:13 | disposition home or self-care (01) ==
PROVIDERS: Emergency Provider Emergency Medicine; PCP Family Medicine; Visit Provider Emergency Medicine
DX: R07.9 Chest pain, unspecified (principal); E11.9 Type 2 diabetes mellitus without complications; K21.9 Gastro-esophageal reflux disease without esophagitis; I10 Essential (primary) hypertension; G47.33 Obstructive sleep apnea (adult) (pediatric); Z99.89 Dependence on other enabling machines and devices; F32.A Depression, unspecified; F41.9 Anxiety disorder, unspecified; Z79.899 Other long term (current) drug therapy; Z90.49 Acquired absence of other specified parts of digestive tract
CPT/HCPCS: 71046; 80048; 84484; 85025; 93005; 99284

== ENCOUNTER → 2024-02-16 | Outpatient (CLI) | payer OTHER, SELFPAY ==
[2024-02-16 17:58] LABS: Thyroid Stim Hormone (TSH) 1.61 uIU/mL (0.358-3.74)
== END | disposition home or self-care (01) ==
LOC: BFHLAB 16:29
PROVIDERS: PCP Family Medicine; Referring Provider Family Medicine; Visit Provider Family Medicine
DX: R00.0 Tachycardia, unspecified (principal)
CPT/HCPCS: 36415; 84443

== ENCOUNTER → 2024-03-27 | Outpatient (CLI) | payer OTHER, SELFPAY ==
[2024-04-01 22:14] LABS: HPV Reflexed? NOT INDICATED
== END | disposition home or self-care (01) ==
LOC: LABSPEC 12:02
PROVIDERS: PCP Family Medicine; Referring Provider Nurse Practitioner Family; Visit Provider Nurse Practitioner Family
DX: Z12.4 Encounter for screening for malignant neoplasm of cervix (principal)
CPT/HCPCS: 88175; G0145

== ENCOUNTER 2024-06-05 17:28 | Emergency (ER) | payer OTHER, SELFPAY ==
[2024-06-05 17:29] VITALS: BP 165/82; PULSE 99; RESP 22; TEMP 36.2; O2SAT 100; BMI 50.1
--- NOTE | 2024-06-05 17:56 | EKG12_ITS ---
Test Reason : Blood Pressure : */* mmHG Vent. Rate : 77 BPM Atrial Rate : 77 BPM P-R Int : 152 ms QRS Dur : 90 ms QT Int : 382 ms P-R-T Axes : 50 16 19 degrees QTcB Int : 432 ms Normal sinus rhythm Normal ECG Confirmed by BERLIN FORD, ORQUIDEA ([id number]), general expeditor BANDAR DAWSON ([id number]) on 06/06/2024 8:18:46 AM Referred By: Confirmed By: ORQUIDEA SLADE MD
--- NOTE | 2024-06-05 18:01 | ED.VIS.CHEST ---
HPI History of Present Illness Chief Complaint: Palpitations Informant: patient Onset/Context/Timing Onset: Today and Yesterday Activity at onset: gradual Timing: Intermittent Current Severity: Mild Maximum Severity: Mild Narrative Narrative: 28-year-old female history of depression and reflux. Said recently has been from her are going through divorce. She has been anxious about that. She started working out. And then Tuesday night went out with friends and drank she typically does not drink. States has been more anxious and having palpitations. No chest pain. No shortness of breath. No leg pain or swelling. No history of DVT or PE. No hemoptysis. No recent travel, surgery or immobilization. Prior Similar Symptoms: Yes Recent Illness/Hospitalization: No CVD Risk Factors: Negative for Hypertension, Diabetes or Hypercholesterolemia PE Risk Factors: Negative for Recent Travel/Surgery, Recent Immobilization, Prior DVT or PE, Cancer or OCP + Smoking + >/=35 TAD Risk Factors: Negative for Marfan's Syndrome PFSH PFSH Medical History Ulcer of gingiva Depression Anxiety Diabetes Anemia Back pain Gastric reflux Non-smoker CPAP (continuous positive airway pressure) dependence Hypertension Chest pain hypertension History of EKG delivery delivered depression Lab test positive for detection of COVID-19 virus LUIS (obstructive sleep apnea) Infertility Panic attacks Bipolar 1 disorder Asthma Hemorrhoids Home Medications ?Medication ?Instructions ?Recorded ?Last Taken ?Type metoprolol tartrate 25 mg tablet 25 mg PO QDAY 01/04/24 Unknown History pantoprazole 40 mg tablet,delayed 40 mg PO DAILY #30 tabs 02/02/24 Unknown Rx release trazodone 50 mg tablet 50 mg PO QHS PRN insomnia #90 tabs 06/01/24 Unknown Rx venlafaxine 150 mg 150 mg PO QAM #90 caps 06/01/24 Unknown Rx capsule,extended release 24 hr Allergy/AdvReac Type Severity Reaction Status Date / Time No Known Allergies Allergy Verified 06/05/24 17:29 Family History Father Brain tumor (benign) Depression CAD (coronary artery disease) Grandmother Hypertension Hyperlipemia Depression Mother Allergies Grandfather Asthma COPD (chronic obstructive pulmonary disease) Surgical History S/P laparoscopic cholecystectomy H/O oral surgery Hx of section Social History household members: family current occupational status: employed 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 Palpitations. No recent illness. Constitutional Constitutional ED: Denies chills or fever(s) Eyes Eyes: Reports none ENT ENT ED: Denies ear pain Cardiovascular Cardiovascular: Reports as per HPI, palpitations and racing heartbeat; Denies chest pain Respiratory/Chest Respiratory/Chest: Denies cough or dyspnea Gastrointestinal Gastrointestinal: Denies abdominal pain Genitourinary Genitourinary ED: Denies dysuria Musculoskeletal Musculoskeletal: Denies arthralgias Integumentary Denies abscess Neurologic Neurologic: Denies headache(s) Psychiatric Psychiatric: Denies anxiety, depression or suicidal ideation Endocrine Endocrinology: Denies cold intolerance Hematologic/Lymphatic Hematologic/Lymphatic: Denies easy bleeding Allergic/Immunologic Allergic/Immunologic ED: Denies mouth swelling EXAM Physical Exam Narrative Exam Narrative: Well-appearing 28-year-old female. Vital signs are stable afebrile. Pulse ox 100% on room air no signs of hypoxia. Heart rate 99. She does not look septic toxic or any distress. H EENT exam unremarkable. Neck nontender no JVD. No lymphadenopathy. Lungs clear to auscultation bilaterally. Heart regular rate and rhythm rate about 95 no murmur. Chest wall and ribs nontender. Abdomen soft nontender. Back nontender. Neurologically she is awake and alert no focal motor deficits. Moving all 4 extremities. Nontender without edema or cords. Calves nontender. Const Vital Signs: 06/05/24 17:29 06/05/24 18:06 Temperature 97.2 F L Temperature Source Temporal Pulse Rate 99 Respiratory Rate 22 H Blood Pressure 165/82 H Blood Pressure Mean 109 Pulse Ox 100 Oxygen Delivery Method Room Air Room Air Positive well nourished, well developed and obese; Negative for cachectic, contractures or unkempt General Appearance ED: well developed and NAD; Negative for unkempt, cachectic, contractures or pallor Nutritional Appearance: obese; Negative for cachectic HEENT Reports moist mucous membranes normocephalic and atraumatic; Negative for trauma or tenderness Eyes PERRL and EOMs intact bilaterally General Eye ED: Negative for pale conjunctiva or scleral icterus Neck no lymphadenopathy, supple and no JVD General: Negative for tenderness Chest Wall inspection of chest normal and palpation of chest normal Chest: Negative for tenderness Resp normal respiratory effort and clear to auscultation bilaterally Effort and Inspection: Negative for respiratory distress Auscultation: Negative for rales, rhonchi, wheezes or diminished lung sounds Cardio regular rate, regular rhythm, S1 normal heart sound, S2 normal heart sound and no murmurs Rate: Negative for bradycardia or tachycardic Peripheral Pulses: pulses 2+ throughout GI normal to inspection, nondistended, normoactive bowel sounds, soft to palpation, non-tender, non-distended and no masses Back/Spine no CVA tenderness and no thoracic nor lumbar tenderness General Back: Negative for CVA tenderness Extremity normal to inspection General Extremety ED: Negative for edema, pulses abnormal or tenderness General Extremity: Negative for edema or pulses abnormal Neuro oriented x3 and CN's II-XII intact bilaterally Sensorium / Orientation: awake, alert, oriented to person and oriented to place; Negative for oriented to time, confused or lethargic Motor Exam: strength 5/5 throughout Psych mental status grossly normal Appearance: Negative for unkempt Attitude: No agitated Mood & Affect: Negative for depressed, anxious or tearful Skin no rashes or lesions noted and no wounds General Skin Exam: Negative for jaundice or pallor Rashes: No rashes noted Trauma: Negative for abrasion, laceration or puncture MDM MDM MDM Narrative Medical decision making narrative: 28-year-old female palpitations benign exam. She undergo a cardiac workup if it is okay which I think will be she will be discharged home. Chest x-ray EKG and labs were unremarkable. Patient be discharged home palpitations uncertain etiology outpatient follow-up as needed. History & Record Review Discussion w/independent historian: Patient Additional record(s) reviewed:: Prior inpatient record, Prior outpatient record, Prior ED visit and Prior labs Lab Data Attestation: I reviewed the patient's lab results. Lab results narrative: CBC shows a white count of 9 H&H 11.9 and 38. Platelets 287. Electrolytes unremarkable gap 7. Normal BUN and creatinine. Glucose 110. Troponin 4. Labs: Laboratory Results - last 24 hr 06/05/24 17:40 WBC 9.3 RBC 4.84 Hgb 11.9 L Hct 38.1 MCV 78.7 L MCH 24.6 L MCHC 31.2 L RDW Std Deviation 44.4 H RDW Coeff of Juliann 15.8 H Plt Count 287 MPV 10.3 Immature Gran % (Auto) 0.400 Neut % (Auto) 69.9 Lymph % (Auto) 22.0 [place] % (Auto) 5.3 Eos % (Auto) 2.0 Baso % (Auto) 0.4 Absolute Neuts (auto) 6.5 Absolute Lymphs (auto) 2.05 Nucleated RBC % 0 Sodium 141 Potassium 3.6 Chloride 106 Carbon Dioxide 29.0 Anion Gap 7 BUN 14 Creatinine 0.67 Estim Creat Clear Calc 172.23 Est GFR (MDRD) Af Amer 136 Est GFR (MDRD) Non-Af 112 BUN/Creatinine Ratio 20.9 H Glucose 110 H Calcium 8.9 Troponin I High Sens 4 Radiography Chest X-Ray - ED: 1 View, Read by ED Physician, Read by Radiologist, Normal, Heart, Lungs, Mediastinum, Bony Structures and No Acute Disease Diagnostic Testing: Clinical Impression(s) from Imaging Studies Chest X-Ray 06/05/24 18:10 IMPRESSION: Normal x-ray examination of the chest. Electronically Signed: Kishore Willams MD at 18:26 EST Reading Location ID and State: [facility] / [place] Tel , Service support , Chest x-ray, portable, single view interpreted by myself and the radiologist shows no acute abnormality. Normal cardiac silhouette. Normal mediastinum. Normal lung palacios. Rhythm Strip Rhythm Strip: Sinus Rhythm Rate: 77 Ectopy: None EKG Initial EKG: Attestation: I personally reviewed and interpreted this EKG as follows: Interpretation: Sinus Rhythm and No Acute Injury Pattern Comments: Normal sinus rhythm rate of 77 no acute signs of [place] or ischemia. Discharge Plan Triage Chief Complaint: Palpitations ED Provider: Spencer Dawson Dx/Rx/DC Orders Clinical Impression: Palpitation Instructions: ED Palpitations Prescriptions: No Action metoprolol tartrate 25 mg tablet 25 mg PO QDAY trazodone 50 mg tablet 50 mg PO QHS PRN (Reason: insomnia) Qty: 90 1RF venlafaxine 150 mg capsule,extended release 24hr 150 mg PO QAM Qty: 90 1RF pantoprazole 40 mg tablet,delayed release (DR/EC) 40 mg PO DAILY Qty: 30 0RF Primary Care Provider: Alecia Rogers Referrals: Alecia Rogers MD [Primary Care Provider] - 1 Week if not improving Activity Restrictions/Additional Instructions: Your labs EKG and chest x-ray were unremarkable. Follow-up with your doctor as needed. This should improve. It may or may not be related to anxiety. Print Language: Algerian Disposition Disposition: Home, Self Care
--- NOTE | 2024-06-05 18:10 | RAD_ITS ---
STUDY: X-RAY CHEST REASON FOR EXAM: Female, 28 years old. chest pain TECHNIQUE: AP portable COMPARISON: February 02, 2024 FINDINGS: The lungs are clear and expanded. There is no demonstrated pleural abnormality. Normal size heart. Normal mediastinum and eduar. Normal visualized pulmonary arteries. Normal visualized aortic arch and descending thoracic aorta. Normal visualized thoracic spine. Normal visualized ribs, clavicles, and shoulders. There is no demonstrated abnormality of the visualized soft tissue structures of the upper abdomen. No significant change since prior exam RAD/Chest 1 View (Portable) IMPRESSION: Normal x-ray examination of the chest. Electronically Signed: Kishore Willams MD at 18:26 EST ,
[2024-06-05 18:13] LABS: Absolute Lymphocyte Count 2.05 X10^3/uL (0.83-4.51); Absolute Neutrophil Count 6.5 X10^3/uL (2.0-7.7); Basophil# 0.04 X10^3/uL; Basophil% 0.4 % (0-1); Eosinophil# 0.19 X10^3/uL; Hematocrit 38.1 % (37-47); Hemoglobin 11.9 g/dL (12.0-15.0); Lymphocyte # 2.05 X10^3/ul (0.83-4.51); Mean Corp Hgb Conc 31.2 g/dL (32-36); Mean Corpuscular Hgb 24.6 pg (27.0-32.0); Mean Corpuscular Volume 78.7 fL (81-99); Mean Platelet Vol. 10.3 fl (6.2-12.0); Monocyte# 0.49 X10^3/uL; Monocyte% 5.3 % (0-10); NRBC Flagged by Analyzer 0 % (0-5); Neutrophil % 69.9 % (47-70); Platelet Count 287 K/mm3 (150-450); RBC Distribution Width CV 15.8 % (11.6-14.6); RBC Distribution Width SD 44.4 fl (35.1-43.9); Red Blood Count 4.84 M/mm3 (4.2-5.4); White Blood Count 9.3 K/mm3 (4.4-11.0)
[2024-06-05 18:40] LABS: Anion Gap 7 (5-15); BUN 14 mg/dL (7-18); BUN/Creat Ratio 20.9 RATIO (10-20); Calcium,Total 8.9 mg/dL (8.5-10.1); Chloride 106 mmol/L (98-107); Creatinine, Serum 0.67 mg/dL (0.55-1.02); EST Glomerular Filtration Rate 112 mL/min (>60); Est Glom Filt Rate - Afr Amer 136 mL/min (>60); Estimated Creatinine Clearance 172.23 ml/min; Glucose 110 mg/dL (74-106); Potassium 3.6 mmol/L (3.5-5.1); Sodium Level 141 mmol/L (136-145); Troponin-I HS 4 pg/mL (3.0-54.0)
[2024-06-05 19:28] VITALS: BP 118/70; PULSE 65; RESP 16; O2SAT 99
== END 2024-06-05 19:50 | disposition home or self-care (01) ==
PROVIDERS: Emergency Provider Emergency Medicine; PCP Family Medicine; Visit Provider Emergency Medicine
DX: R00.2 Palpitations (principal); E11.9 Type 2 diabetes mellitus without complications; I10 Essential (primary) hypertension; G47.33 Obstructive sleep apnea (adult) (pediatric); Z99.89 Dependence on other enabling machines and devices; K21.9 Gastro-esophageal reflux disease without esophagitis; Z79.899 Other long term (current) drug therapy; F32.A Depression, unspecified; F41.9 Anxiety disorder, unspecified; Z90.49 Acquired absence of other specified parts of digestive tract
CPT/HCPCS: 71045; 80048; 84484; 85025; 93005; 99284; A4216

== ENCOUNTER → 2024-08-06 | Outpatient (CLI) | payer OTHER, SELFPAY ==
[2024-08-06 12:26] LABS: Hematocrit 38.3 % (37-47); Hemoglobin 11.6 g/dL (12.0-15.0); Mean Corp Hgb Conc 30.3 g/dL (32-36); Mean Corpuscular Hgb 24.5 pg (27.0-32.0); Mean Corpuscular Volume 80.8 fL (81-99); Platelet Count 298 K/mm3 (150-450); RBC Distribution Width CV 16.1 % (11.6-14.6); RBC Distribution Width SD 47.1 fl (35.1-43.9); Red Blood Count 4.74 M/mm3 (4.2-5.4); White Blood Count 7.8 K/mm3 (4.4-11.0)
[2024-08-06 13:24] LABS: ALB/GLOB Ratio 0.8 RATIO (0.9-2.4); AST(SGOT) 20 U/L (15-37); Alanine Aminotransfer ALT/SGPT 31 U/L (13-56); Albumin, Serum 3.5 g/dL (3.2-5.0); Alkaline Phosphatase 97 U/L (45-117); Anion Gap 8 (5-15); BUN 9 mg/dL (7-18); BUN/Creat Ratio 10.9 RATIO (10-20); Chloride 103 mmol/L (98-107); Cholesterol 163 mg/dL (200); Creatinine, Serum 0.82 mg/dL (0.55-1.02); EST Glomerular Filtration Rate 88 mL/min (>60); Est Glom Filt Rate - Afr Amer 107 mL/min (>60); Globulin 4.5 g/dL (2.2-4.2); Glucose 140 mg/dL (74-106); High Density Lipoprotein 47 mg/dL; Potassium 3.8 mmol/L (3.5-5.1); Sodium Level 136 mmol/L (136-145); Triglycerides 97 mg/dL; Very Low Density Lipoprotein 19 mg/dL (5-40)
[2024-08-08 20:07] LABS: Chlamydia By Nucleic Acid AMP Negative (Negative); Gonococcus By Nucleic Acid AMP Negative (Negative)
== END | disposition home or self-care (01) ==
PROVIDERS: Obstetrics & Gynecology; PCP Family Medicine; Referring Provider Family Medicine; Visit Provider Family Medicine
DX: Z11.3 Encounter for screening for infections with a predominantly sexual mode of transmission (principal); E66.01 Morbid (severe) obesity due to excess calories; Z13.220 Encounter for screening for lipoid disorders; Z13.21 Encounter for screening for nutritional disorder; Z13.1 Encounter for screening for diabetes mellitus; Z13.29 Encounter for screening for other suspected endocrine disorder
CPT/HCPCS: 36415; 80053; 80061; 82306; 84443; 85027; 87070; 87205; 87491; 87591

== ENCOUNTER → 2024-08-20 | Outpatient (CLI) | payer OTHER, SELFPAY ==
[2024-08-22 04:07] LABS: Chlamydia By Nucleic Acid AMP Negative (Negative); Gonococcus By Nucleic Acid AMP Negative (Negative)
== END | disposition home or self-care (01) ==
LOC: LABSPEC 10:13
PROVIDERS: PCP Family Medicine; Referring Provider Obstetrics & Gynecology; Visit Provider Obstetrics & Gynecology
DX: N89.8 Other specified noninflammatory disorders of vagina (principal)
CPT/HCPCS: 87070; 87205; 87491; 87591

== ENCOUNTER → 2024-10-01 | Outpatient (CLI) | payer OTHER, SELFPAY ==
[2024-10-03 21:07] LABS: Chlamydia By Nucleic Acid AMP Negative (Negative); Gonococcus By Nucleic Acid AMP Negative (Negative)
== END | disposition home or self-care (01) ==
LOC: LABSPEC 16:04
PROVIDERS: PCP Family Medicine; Referring Provider Advanced Practice Midwife; Visit Provider Advanced Practice Midwife
DX: Z20.2 Contact with and (suspected) exposure to infections with a predominantly sexual mode of transmission (principal)
CPT/HCPCS: 87491; 87591

== ENCOUNTER → 2024-10-03 | Outpatient (CLI) | payer OTHER, SELFPAY ==
--- NOTE | 2024-10-03 09:59 | US_ITS ---
PROCEDURE: TRANSVAGINAL NON- (USTVAG), 10/03/2024 REASON FOR EXAM: LOST IUD STRINGS TECHNIQUE: Grayscale and color doppler transabdominal and transvaginal pelvic ultrasound was performed. COMPARISON: None FINDINGS: Uterus: 8.2 x 5.1 x 4.4 cm, Anteverted. Unremarkable echotexture. Endometrium: 12 mm, trilaminar proliferative phase appearance. IUD is present. The body appears located in the fundus, unable to establish arm positions on images obtained. Cervix: Nabothian cysts. Right ovary: Visualized only by suboptimal transabdominal approach. 3.1 x 2.4 x 1.9 cm (estimated volume 7.0 mL), unremarkable. Left ovary: Visualized only by suboptimal transabdominal approach. 3.1 x 2.1 x 2.0 cm (estimated volume 6.5 mL), unremarkable. Free fluid: None visualized. Other: None. US/Transvaginal Non- IMPRESSION: 1. IUD is present with body in the fundus. Difficult to establish arm position s on images obtained. 2. Additional description as above. Reading Location: [id number]
== END | disposition home or self-care (01) ==
LOC: US 09:58
PROVIDERS: PCP Family Medicine; Referring Provider Advanced Practice Midwife; Visit Provider Advanced Practice Midwife
DX: T83.32XA Displacement of intrauterine contraceptive device, initial encounter (principal)
CPT/HCPCS: 76830

== ENCOUNTER → 2024-10-11 | Outpatient (CLI) | payer OTHER, SELFPAY | END | disposition home or self-care (01) | LOC: LABSPEC 09:43 | PROVIDERS: PCP Family Medicine; Referring Provider Nurse Practitioner Family; Visit Provider Nurse Practitioner Family | DX: N89.8 Other specified noninflammatory disorders of vagina (principal) | CPT/HCPCS: 87070; 87077; 87186; 87205 ==

== ENCOUNTER → 2024-10-31 | Outpatient (CLI) | payer OTHER, SELFPAY | END | disposition home or self-care (01) | LOC: LABSPEC 16:02 | PROVIDERS: PCP Family Medicine; Referring Provider Nurse Practitioner Family; Visit Provider Nurse Practitioner Family | DX: N89.8 Other specified noninflammatory disorders of vagina (principal); Z20.2 Contact with and (suspected) exposure to infections with a predominantly sexual mode of transmission; Z11.3 Encounter for screening for infections with a predominantly sexual mode of transmission | CPT/HCPCS: 87070; 87205; 87491; 87591 ==

== ENCOUNTER → 2024-12-18 | Outpatient (CLI) | payer OTHER, SELFPAY ==
[2024-12-18 15:27] LABS: Absolute Lymphocyte Count 2.29 X10^3/uL (0.83-4.51); Absolute Neutrophil Count 6.6 X10^3/uL (2.0-7.7); Basophil# 0.05 X10^3/uL; Basophil% 0.5 % (0-1); Eosinophil# 0.17 X10^3/uL; Eosinophils% 1.8 % (0-5); Hematocrit 39.5 % (37-47); Lymphocyte # 2.29 X10^3/ul (0.83-4.51); Lymphocyte % 23.8 % (19-41); Mean Corp Hgb Conc 30.4 g/dL (32-36); Mean Corpuscular Hgb 24.4 pg (27.0-32.0); Mean Corpuscular Volume 80.4 fL (81-99); Mean Platelet Vol. 10.5 fl (6.2-12.0); Monocyte% 5.2 % (0-10); NRBC Flagged by Analyzer 0 % (0-5); Neutrophil % 68.4 % (47-70); Platelet Count 267 K/mm3 (150-450); RBC Distribution Width CV 15.9 % (11.6-14.6); RBC Distribution Width SD 45.6 fl (35.1-43.9); Red Blood Count 4.91 M/mm3 (4.2-5.4); White Blood Count 9.6 K/mm3 (4.4-11.0)
[2024-12-18 16:27] LABS: HIV Nonreactive (Nonreactive); Hepatitis B Surface Antigen Nonreactive (Nonreactive); Hepatitis C Antibody Nonreactive (Nonreactive); Syphilis Antibodies Nonreactive (Nonreactive)
[2024-12-18 21:08] LABS: Hemoglobin A1c 5.4 % (<=5.6)
[2024-12-20 05:07] LABS: HSV 1 IgG Non Reactive (Non Reactive); HSV 2 IgG Non Reactive (Non Reactive)
== END | disposition home or self-care (01) ==
PROVIDERS: Obstetrics & Gynecology; PCP Family Medicine; Referring Provider Nurse Practitioner Family; Visit Provider Nurse Practitioner Family
DX: Z11.3 Encounter for screening for infections with a predominantly sexual mode of transmission (principal); Z68.43 Body mass index [BMI] 50.0-59.9, adult; E66.89 Other obesity not elsewhere classified
CPT/HCPCS: 36415; 83036; 85025; 86695; 86696; 86703; 86780; 86803; 87340

== ENCOUNTER 2024-12-19 14:06 | Emergency (ER) | payer OTHER, SELFPAY ==
[2024-12-19 14:07] VITALS: BP 140/83; PULSE 80; RESP 18; TEMP 36.3; O2SAT 99; BMI 50.3
--- NOTE | 2024-12-19 14:11 | EKG12_ITS ---
Test Reason : CP Blood Pressure : */* mmHG Vent. Rate : 73 BPM Atrial Rate : 73 BPM P-R Int : 174 ms QRS Dur : 92 ms QT Int : 374 ms P-R-T Axes : 30 6 9 degrees QTcB Int : 412 ms Normal sinus rhythm with sinus arrhythmia Normal ECG Confirmed by FENG FORD, ELLY ([id number]), multimedia editor SHANT LUNSFORD ([id number]) on 12/24/2024 6:08:55 AM Referred By: TB Confirmed By: ELLY TONEY MD
[2024-12-19 14:26] LABS: Absolute Lymphocyte Count 2.27 X10^3/uL (0.83-4.51); Absolute Neutrophil Count 8.3 X10^3/uL (2.0-7.7); Basophil# 0.05 X10^3/uL; Basophil% 0.4 % (0-1); Eosinophil# 0.12 X10^3/uL; Eosinophils% 1.1 % (0-5); Hematocrit 36.8 % (37-47); Hemoglobin 11.6 g/dL (12.0-15.0); Lymphocyte # 2.27 X10^3/ul (0.83-4.51); Lymphocyte % 20.1 % (19-41); Mean Corp Hgb Conc 31.5 g/dL (32-36); Mean Corpuscular Hgb 24.5 pg (27.0-32.0); Mean Corpuscular Volume 77.6 fL (81-99); Mean Platelet Vol. 10.1 fl (6.2-12.0); Monocyte# 0.49 X10^3/uL; Monocyte% 4.3 % (0-10); NRBC Flagged by Analyzer 0 % (0-5); Neutrophil # 8.33 X10^3/uL (2.7-7.7); Neutrophil % 73.7 % (47-70); Platelet Count 285 K/mm3 (150-450); RBC Distribution Width CV 15.5 % (11.6-14.6); Red Blood Count 4.74 M/mm3 (4.2-5.4); White Blood Count 11.3 K/mm3 (4.4-11.0)
--- NOTE | 2024-12-19 14:50 | RAD_ITS ---
PROCEDURE: CHEST 1 VIEW (PORTABLE) 12/19/2024 REASON FOR EXAM: CHEST PAIN TECHNIQUE: Frontal view of the chest. COMPARISON: 06/05/2024 FINDINGS: No focal consolidations. No pleural effusion or pneumothorax. Cardiac silhouette is unchanged. No acute fractures. RAD/Chest 1 View (Portable) IMPRESSION: No focal consolidations. Reading Location: [id number]
[2024-12-19 14:56] LABS: Anion Gap 12 (5-15); BUN 10 mg/dL (4-19); BUN/Creat Ratio 16.1 RATIO (10-20); Calcium,Total 9.3 mg/dL (7.6-11.0); Carbon Dioxide 26.7 mmol/L (21.0-32.0); Chloride 99 mmol/L (98-108); Creatinine, Serum 0.64 mg/dL (0.70-1.20); EST Glomerular Filtration Rate 124 (>60); Estimated Creatinine Clearance 179.41 ml/min (50-250); Glucose 117 mg/dL (70-99); Potassium 4.1 mmol/L (3.3-5.1); Sodium Level 138 mmol/L (133-145); Troponin T High Sensitivity < 6 ng/L (<=14)
--- NOTE | 2024-12-19 14:58 | ED.VIS.CHEST ---
HPI History of Present Illness Chief Complaint: Chest Pain Detail of Chief Complaint: Left-sided chest pain Informant: patient Onset/Context/Timing Onset: Hours (Approximately 1 hour prior to presentation) Activity at onset: sudden Timing: Continuous Quality: Positive for Sharp Location: - (Near the tail of the left breast/anterior axillary line) Current Severity: Mild Maximum Severity: Moderate Worsened By: Nothing Relieved By: Nothing Associated Symptoms: Positive for - (There is no history of direct or indirect trauma.); Negative for Nausea, Vomiting, Diaphoresis, Dyspnea, Cough, Fever, Lightheadedness, Acid Reflux or Palpitations Narrative Narrative: Patient is a 29-year-old female. She has history of generalized anxiety disorder with panic attacks, GERD, BMI 50.4 who presents with left-sided sharp chest pain. She states this may be a panic attack as her OB yesterday told that she has a heart murmur. She denies fever, chills night sweats. She denies headache. Denies visual or ocular symptoms. She denies rhinorrhea, congestion, postnasal drainage sore throat. She denies neck pain. She denies chest pressure, tightness heaviness. Pain is not made better or worse by anything. She has no history of PE or DVT. She is not on control pills. She denies leg pain, swelling or discoloration. She has not had recent surgery or long distance trip. Prior Similar Symptoms: No Recent Illness/Hospitalization: No CVD Risk Factors: Negative for Hypertension, Diabetes, Hypercholesterolemia or Family History 1' </=55 PE Risk Factors: Negative for Recent Travel/Surgery, Recent Immobilization, Prior DVT or PE, Cancer or OCP + Smoking + >/=35 TAD Risk Factors: Negative for Marfan's Syndrome, Hypertension or Family History [facility] Medical History Ulcer of gingiva Depression Anxiety Diabetes Anemia Back pain Gastric reflux Non-smoker CPAP (continuous positive airway pressure) dependence Hypertension Chest pain hypertension History of EKG delivery delivered depression Lab test positive for detection of COVID-19 virus LUIS (obstructive sleep apnea) Infertility Panic attacks Bipolar 1 disorder Asthma Hemorrhoids Home Medications ?Medication ?Instructions ?Recorded ?Last Taken ?Type metoprolol tartrate 25 mg tablet 25 mg PO QDAY 01/04/24 Unknown History pantoprazole 40 mg tablet,delayed 40 mg PO DAILY #30 tabs 02/02/24 Unknown Rx release levonorgestrel (Mirena) 1 device intrauterine ONCE 08/20/24 Unknown History trazodone 50 mg tablet 50 mg PO QHS PRN insomnia #90 tabs 09/14/24 Unknown Rx venlafaxine 150 mg 150 mg PO QAM #90 caps 09/14/24 Unknown Rx capsule,extended release 24 hr venlafaxine 75 mg capsule,extended 75 mg PO QAM #30 caps 12/05/24 Unknown Rx release 24 hr Allergy/AdvReac Type Severity Reaction Status Date / Time No Known Allergies Allergy Verified 12/19/24 14:07 Family History Father Brain tumor (benign) Depression CAD (coronary artery disease) Grandmother Hypertension Hyperlipemia Depression Mother Allergies Grandfather Asthma COPD (chronic obstructive pulmonary disease) Surgical History S/P laparoscopic cholecystectomy H/O oral surgery Hx of section Social History household members: family current occupational status: employed 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 Smoking Status: Never smoker second hand exposure: No alcohol intake: never substance use type: does not use caffeine: Yes what type of physical activity do you participate in: aerobics frequency: 3-4 times per week seatbelt use: always do you feel safe at home: Yes ROS ROS ED Constitutional Constitutional ED: Denies chills, fever(s), subjective or sweats Eyes Eyes: Reports none ENT ENT ED: Denies ear pain, rhinorrhea or sore throat Cardiovascular Cardiovascular: Reports as per HPI Respiratory/Chest Respiratory/Chest: Denies cough, dyspnea or dyspnea on exertion Gastrointestinal Gastrointestinal: Denies abdominal pain, constipation, diarrhea, melena, nausea or vomiting Musculoskeletal Musculoskeletal: Denies arthralgias, back pain or myalgias Integumentary Denies rash Neurologic Neurologic: Denies paresthesias or weakness Psychiatric Psychiatric: Reports anxiety Hematologic/Lymphatic Hematologic/Lymphatic: Denies easy bleeding or easy bruising EXAM Physical Exam Const Vital Signs: 12/19/24 14:07 12/19/24 14:41 12/19/24 14:41 Temperature 97.3 F L Temperature Source Temporal Pulse Rate 80 Respiratory Rate 18 Respiratory Effort Normal Non-Labored Blood Pressure 140/83 H Blood Pressure Mean 102 Pulse Ox 99 Oxygen Delivery Method Room Air Room Air Positive well nourished and well developed Constitutional Narrative: BMI 50.4. General Appearance ED: well developed and NAD; Negative for pallor HEENT Reports TM's clear and moist mucous membranes normocephalic and atraumatic Tympanic Membrane ED: Yes TM's clear Eyes PERRL and EOMs intact bilaterally General Eye ED: Negative for pale conjunctiva or scleral icterus Neck no lymphadenopathy, supple and no JVD Chest Wall Chest Narrative: Patient has reproducible chest pain anterior axillary line over the fourth fifth rib. There is no bruising noted. There is no crepitus or subcutaneous air noted. Resp normal respiratory effort and clear to auscultation bilaterally Cardio regular rate, regular rhythm, S1 normal heart sound, S2 normal heart sound and no murmurs Peripheral Pulses: pulses 2+ throughout GI normal to inspection, nondistended, normoactive bowel sounds, soft to palpation, non-tender and non-distended; Negative for hepatosplenomegaly or no masses Back/Spine no CVA tenderness and no thoracic nor lumbar tenderness Extremity Extremity Narrative: There is no asymmetry, swelling, discoloration, leg vein distention, palpable cords or tenderness along the distribution of the deep venous system. Neuro oriented x3, CN's II-XII intact bilaterally and no sensory deficits noted Sensorium / Orientation: awake and alert Motor Exam: strength 5/5 throughout Psych Mood & Affect: anxious Skin no rashes or lesions noted and no wounds General Skin Exam: Negative for jaundice or pallor MDM MDM MDM Narrative Medical decision making narrative: Nurse protocol was entered for chest pain workup. In my opinion this is muscular pain. This is not consistent with cardiac chest pain. I believe there is an anxiety component i.e. panic attack. Lab Data Attestation: I reviewed the patient's lab results. Lab results narrative: White count slightly of 11.3 thousand with slight shift. There is no bandemia. Patient has microcytic anemia with an H&H of 11.6 and 36.8. First troponin is less than 6. Blood work is remarkable for elevated glucose of 117. CO2 anion gap are normal. Labs: Laboratory Results - last 24 hr 12/19/24 14:19 WBC 11.3 H RBC 4.74 Hgb 11.6 L Hct 36.8 L MCV 77.6 L MCH 24.5 L MCHC 31.5 L RDW Std Deviation 43.0 RDW Coeff of Juliann 15.5 H Plt Count 285 MPV 10.1 Immature Gran % (Auto) 0.400 Neut % (Auto) 73.7 H Lymph % (Auto) 20.1 [place] % (Auto) 4.3 Eos % (Auto) 1.1 Baso % (Auto) 0.4 Absolute Neuts (auto) 8.3 H Absolute Lymphs (auto) 2.27 Nucleated RBC % 0 Sodium 138 Potassium 4.1 Chloride 99 Carbon Dioxide 26.7 Anion Gap 12 BUN 10 Creatinine 0.64 L Estim Creat Clear Calc 179.41 Est GFR (MDRD) Non-Af 124 BUN/Creatinine Ratio 16.1 Glucose 117 H Calcium 9.3 Troponin T High Sens < 6 Radiography Chest X-Ray - ED: 1 View, Read by ED Physician (Independently reviewed interpreted by me at 1455.), Normal, Heart, Lungs, Mediastinum, Bony Structures and No Acute Disease EKG Initial EKG: Attestation: I personally reviewed and interpreted this EKG as follows: Interpretation: Sinus Rhythm (Rate is 73. The EKG is normal. CO interval is under 74 ms. Cures duration 92 ms. QT interval 374 ms. [place] is normal) Treatment and Re-Evaluation :: My medical opinion patient has 2 causes for chest pain 1 panic attack 2 months ago with chest pain. Will treat with NSAIDs and she has no contraindication and should be discharged home with appropriate home-going instructions. Discharge Plan Triage Chief Complaint: Chest Pain ED Provider: Erick Camacho Dx/Rx/DC Orders Clinical Impression: Anxiety reaction, Acute chest wall pain, BMI 50.0-59.9, adult Instructions: ED Chest Pain, Noncardiac, ED Panic Attack Prescriptions: No Action metoprolol tartrate 25 mg tablet 25 mg PO QDAY Mirena 21 mcg/24hr (up to 8 yrs) 52 mg intrauterine device 1 device intrauterine ONCE Rx Instructions: as a single dose trazodone 50 mg tablet 50 mg PO QHS PRN (Reason: insomnia) Qty: 90 1RF venlafaxine 150 mg capsule,extended release 24hr 150 mg PO QAM Qty: 90 1RF venlafaxine 75 mg capsule,extended release 24hr 75 mg PO QAM Qty: 30 1RF Rx Instructions: Take in addition to 150mg capsule for a total of 225mg daily pantoprazole 40 mg tablet,delayed release (DR/EC) 40 mg PO DAILY Qty: 30 0RF Primary Care Provider: Alecia Rogers Referrals: Alecia Rogers MD [Primary Care Provider] - 1 Week if not improving Activity Restrictions/Additional Instructions: 1. 4 ibuprofen tablets every 8 hours or 2 Aleve tablets every 12 hours for next 3 to 5 days for your chest wall pain. Print Language: [place] Disposition Disposition: Home, Self Care
[2024-12-19 15:25] VITALS: BP 120/89; PULSE 78; RESP 16; TEMP 36.8; O2SAT 99
== END 2024-12-19 15:25 | disposition home or self-care (01) ==
PROVIDERS: Emergency Provider Emergency Medicine; PCP Family Medicine; Visit Provider Emergency Medicine
DX: R07.89 Other chest pain (principal); E11.9 Type 2 diabetes mellitus without complications; F41.1 Generalized anxiety disorder; I10 Essential (primary) hypertension; G47.33 Obstructive sleep apnea (adult) (pediatric); Z99.89 Dependence on other enabling machines and devices; Z79.899 Other long term (current) drug therapy; K21.9 Gastro-esophageal reflux disease without esophagitis; F32.A Depression, unspecified; Z90.49 Acquired absence of other specified parts of digestive tract
CPT/HCPCS: 71045; 80048; 84484; 85025; 93005; 99284; A4216

== ENCOUNTER 2025-01-10 07:44 | Outpatient (RCR) | payer OTHER, SELFPAY | END 2025-01-14 23:59 | LOC: NS 07:44 | PROVIDERS: PCP Family Medicine; Referring Provider Obstetrics & Gynecology; Visit Provider Obstetrics & Gynecology | DX: Z71.3 Dietary counseling and surveillance (principal) | CPT/HCPCS: 97802 ==

== ENCOUNTER 2025-02-19 07:34 | Outpatient (RCR) | payer OTHER, SELFPAY | END 2025-03-17 23:59 | LOC: NS 07:34 | PROVIDERS: PCP Family Medicine; Referring Provider Obstetrics & Gynecology; Visit Provider Obstetrics & Gynecology | DX: Z71.3 Dietary counseling and surveillance (principal); E66.01 Morbid (severe) obesity due to excess calories; F50.819 Binge eating disorder, unspecified; Z68.43 Body mass index [BMI] 50.0-59.9, adult | CPT/HCPCS: 97803 ==

== ENCOUNTER → 2025-02-19 | Outpatient (CLI) | payer OTHER, SELFPAY ==
--- OUTSIDE RECORDS SUMMARY | 2025-02-19 18:21 | XMS RPT_ITS | CCD ---
Author Organization [facility] Care Team Providers Care Automation Analyst Name Role Phone Nisa NIChristine Rocío Unavailable [phone] Austin Castro Primary Care Provider Alecia Rogers Primary Care Provider BELLO FISH Attending Unavailab le MIEDEL, ALECIA E Primary Care Unavailable BELLO FISH Attending Unavailab le NO, PHYSICIAN Primary Care Unavailable STACEY SHUKLA Attending Unavailable MIEDEL, ALECIA E Primary Care Unavailable Austin Castro MD Primary Care Provider Alecia Rogers MD Primary Care Provider Alecia Rogers MD Primary Care Provider NICOLASA DICKENS Attending Unavailable MIEDEL, ALCEIA E Primary Care Unavailable MIEDEL, ALECIA E Primary Care Unavailable MIEDEL, ALECIA E Primary Care Unavailable MIEDEL, ALECIA E Primary Care Unavailable MIEDEL, ALECIA E Primary Care Unavailable MIEDEL, ALECIA E Primary Care Unavailable MIEDEL, ALECIA E Primary Care Unavailable MIEDEL, ALECIA E Primary Care Unavailable MIEDEL, ALECIA E Primary Care Unavailable VAISHALI JUDGE Referring Unavailable MIEDEL, ALECIA E Primary Care Unavailable MIEDEL, ALECIA E Primary Care Unavailable Miedel, Alecia Primary Care Unavailable Laly Pham Referring Unavailable Laly Pham Attending Unavailable Miedel, Alecia Primary Care Unavailable Gema Estrada Referring Unavailable Gema Estrada Attending Unavailable Miedel, Alecia Primary Care Unavailable Erick Camacho Attending Unavailable Miedel, Alecia Primary Care Unavailable Gema Estrada Referring Unavailable Gema Estrada Attending Unavailable Miedel, Alecia Primary Care Unavailable Laly Pham Referring Unavailable Laly Pham Attending Unavailable Miedel, Alecia Referring Unavailable Miedel, Alecia Primary Care Unavailable Trinh Saravia Attending Unavailable Miedel, Alecia Referring Unavailable Miedel, Alecia Primary Care Unavailable Gabriela Rachel Attending Unavailabl e Miedel, Alecia Primary Care Unavailable Isak Mcnair Attending Unavailable Miedel, Alecia Referring Unavailable Miedel, Alecia Primary Care Unavailable Trinh Saravia Attending Unavailable Miedel, Alecia Referring Unavailable Miedel, Alecia Primary Care Unavailable Laly Pham Attending Unavailable Miedel, Alecia Referring Unavailable Miedel, Alecia Primary Care Unavailable Gabriela Rachel Attending Unavailabl e Miedel, Alecia Referring Unavailable Miedel, Alecia Primary Care Unavailable Gabriela Rachel Attending Unavailabl e Miedel, Alecia Primary Care Unavailable Trinh Saravia Attending Unavailable Miedel, Alecia Primary Care Unavailable Trinh Saravia Attending Unavailable Miedel, Alecia Primary Care Unavailable Spencer Dawson Attending Unavailable Miedel, Alecia Primary Care Unavailable Gabriela Rachel Attending Unavailabl Gabriela Ruby Referring Unavailabl e Miedel, Alecia Attending Unavailable Miedel, Alecia Referring Unavailable Miedel, Alecia Primary Care Unavailable Jordyn Carrillo Attending Unavailable Jordyn Carrillo Referring Unavailable Miedel, Alecia Primary Care Unavailable Jordyn Carrillo Attending Unavailable Jordyn Carrillo Referring Unavailable Miedel, Alecia Primary Care Unavailable Laly Pham Attending Unavailable Miedel, Alecia Referring Unavailable Miedel, Alecia Primary Care Unavailable Miedel, Alecia Referring Unavailable Miedel, Alecia Primary Care Unavailable Gema Estrada Attending Unavailable Miedel, Alecia Referring Unavailable Miedel, Alecia Primary Care Unavailable SaraviaTrinh Attending Unavailable Miedel, Alecia Referring Unavailable Miedel, Alecia Primary Care Unavailable Saravia, Trinh Attending Unavailable Miedel, Alecia Referring Unavailable Miedel, Alecia Primary Care Unavailable Whit Saraviaon Attending Unavailable Miedel, Alecia Primary Care Unavailable Miedel, Alecia Referring Unavailable Reggie Greer Attending Unavailable Miedel, Alecia Primary Care Unavailable Miedel, Alecia Referring Unavailable SaraviaWhiton Attending Unavailable Miedel, Alecia Referring Unavailable Miedel, Alecia Primary Care Unavailable Gema Estrada Attending Unavailable Miedel, Alecia Referring Unavailable Miedel, Alecia Primary Care Unavailable Gema Estrada Attending Unavailable Miedel, Alecia Referring Unavailable Miedel, Alecia Primary Care Unavailable Gema Estrada Attending Unavailable Miedel, Alecia Attending Unavailable Miedel, Alecia Referring Unavailable Miedel, Alecia Primary Care Unavailable Miedel, Alecia Primary Care Unavailable Gema Estrada Referring Unavailable Gema Estrada Attending Unavailable Miedel, Alecia Primary Care Unavailable Gema Estrada Attending Unavailable BarkGema leger Referring Unavailable Miedel, Alecia Primary Care Unavailable Miedel, Alecia Referring Unavailable Jordyn Carrillo Attending Unavailable Miedel, Alecia Primary Care Unavailable Gema Estrada Referring Unavailable Gema Estrada Attending Unavailable Miedel, Alecia Referring Unavailable Miedel, Alecia Primary Care Unavailable Trinh Saravia Attending Unavailable Medications Current Medications Medication Drug Class(es) Dates Sig (Normalized) Sig (Original) acetaminophen 325 mg / oxyCODONE hydrochloride 5 mg oral tablet (18 sources) Opioid Agonist Start: 10-02-2021 oxyCODONE-acetam inophen (PERCOCET) 5-325 mg tablet 10/02/2021 Active amoxicillin 875 mg oral tablet (1 source) Penicillin-class Antibacterial Start: 10-07-2021 End: 10-17-2021 take 1 tablet by mouth twice daily amoxicillin (AMOXIL) 875 mg tablet Take 1 tablet by mouth twice daily for 10 days. 20 tablet 0 10/07/2021 10/17/2021 Active Comment on above: Take 1 tablet by joyec th twice daily for 10 days. amoxicillin 875 mg / clavulanate 125 mg oral tablet (1 source) Penicillin-class Antibacterial Start: 07-07-2024 End: 07-14-2024 take 1 tablet by mouth twice daily amoxicillin-clav ulanate potassium (AUGMENTIN) 875-125 mg per tablet Indications: Bacterial sinusitis Take 1 tablet by mouth two times a day for 7 days. 14 tablet 07/07/2024 07/14/2024 Active brompheniramine maleate 0.4 mg/ml / dextromethorphan hydrobromide 2 mg/ml / pseudoephedrine hydrochloride 6 mg/ml oral solution (8 sources) alpha-Adrenergic Agonist, Uncompetitive K-lfrvyj-R-aspartate Receptor Antagonist, Sigma-1 Agonist Start: 08-03-2024 End: 09-06-2024 take 5 mL by mouth every six hours as needed Brompheniramine- Pseudoeph-DM (BROMFED DM) 2-30-10 mg/5 mL syrup Take 5 mL by mouth four times a day as needed. 118 mL 09/06/2024 Active budesonide 0.032 mg/actuat metered dose nasal spray (3 sources) Corticosteroid Start: 08-03-2024 End: 08-17-2024 take 2 spray(s) by mouth once daily budesonide (RHINOCORT AQ) 32 mcg/actuation nasal spray Indications: URI, acute Use 2 Sprays in each nostril once daily for 14 days. Rinse mouth after use. 8.43 mL 08/03/2024 08/17/2024 Active busPIRone hydrochloride 10 mg oral tablet (18 sources) Start: 09-27-2021 busPIRone (BUSPAR) 10 mg tablet 09/27/2021 Active citalopram 40 mg oral tablet (18 sources) Serotonin Reuptake Inhibitor Start: 09-04-2021 citalopram (CELEXA) 40 mg tablet 09/04/2021 Active Docusate (18 sources) docusate sodium (COLACE ORAL) Take by mouth. Active docusate sodium (COLACE ORAL) Take by mouth. 0 Active Comment on above: Take by mouth. doxycycline monohydrate 100 mg oral capsule (1 source) Tetracycline-class Drug Start: End: 4 take 1 capsule by mouth twice daily doxycycline monohydrate (MONODOX) 100 mg capsule Indications: Bacterial sinusitis Take 1 capsule by mouth two times a day for 5 days. 10 capsule 05/16/2024 05/21/2024 Active escitalopram 20 mg oral tablet (18 sources) Serotonin Reuptake Inhibitor Start: 9 take 1 tablet by mouth once daily escitalopram oxalate (LEXAPRO) 20 mg tablet Take 1 tablet by mouth once daily. 09/06/2018 Active Comment on above: Take 1 tablet by joyce once daily. Ethinyl Estradiol / norgestimate (16 sources) Progestin, Estrogen Start: 2 SPRINTEC 0.25-35 mg-mcg per tablet 03/07/2022 Active Start: 03-07-2022 SPRINTEC 0.25- 35 mg-mcg per tablet fluconazole 150 mg oral tablet (2 sources) Azole Antifungal Start: 07-07-2024 End: 07-07-2024 take 1 tablet by mouth once fluconazole (DIFLUCAN) 150 mg tablet Indications: Feared condition not demonstrated Take 1 tablet by mouth one time only for 1 dose. 1 tablet 07/07/2024 07/07/2024 Active Start: 05-16-2024 End: 05-16-2024 fluconazole (DIFLUCAN) 150 m g tablet Indications: Bacterial sinusitis Take 1 tablet by mouth one time only for 1 dose. Repeat in 3 days as needed. 2 tablet 05/16/2024 05/16/2024 ibuprofen 600 mg oral tablet (18 sources) Nonsteroidal Anti-inflammatory Drug Start: 10-03-2021 ibuprofen (MOTRIN) 600 mg tablet 10/03/2021 Active labetalol hydrochloride 100 mg oral tablet (18 sources) beta-Adrenergic Robin Start: 10-06-2021 labetalol (TRANDATE) 100 mg tablet 10/06/2021 Active metoprolol tartrate 25 mg oral tablet (15 sources) beta-Adrenergic Robin take 1 tablet by mouth twice daily metoprolol tartrate, short acting, (LOPRESSOR) 25 mg tablet TAKE 1/2 TABLET BY MOUTH 2 TIMES A DAY Active omeprazole 20 mg delayed release oral capsule (16 sources) Proton Pump Inhibitor take 1 capsule by mouth once daily omeprazole (PRILOSEC) 20 mg capsule Take 20 mg by mouth once daily. Active Comment on above: Take 20 mg by mouth once daily. pantoprazole 40 mg delayed release oral tablet (15 sources) Proton Pump Inhibitor take 1 tablet by mouth once daily pantoprazole DR (PROTONIX) 40 mg tablet Take 40 mg by mouth once daily. Active Ocmxlfnu-Ie-Vwy-Fe- FA ( VITAMIN) tab (18 sources) take 1 tablet by mouth once Cqkwkqjh-Zx-Nnh-F e-FA ( VITAMIN) tab Take 1 tablet by mouth. Active take 1 tablet by mouth once Pren atal Wctuekfg-Su-Phx-Fe-FA ( VITAMIN) tab Take 1 tablet by mouth. 0 Active Comment on above: Take 1 tablet by joyce th. traZODone hydrochloride 50 mg oral tablet (15 sources) Serotonin Reuptake Inhibitor take 1 tablet by mouth every twenty-four hours as needed traZODone (DESYREL) 50 mg tablet Take 50 mg by mouth at bedtime as needed. Active 24 hr venlafaxine 150 mg extended release oral capsule (20 sources) Serotonin and Norepinephrine Reuptake Inhibitor Start: 05-22-20 take 1 capsule by mouth once daily in the morning venlafaxine ER (EFFEXOR XR) 150 mg 24 hr capsule Take 150 mg by mouth every morning. 05/22/2024 Active Start: 03-23-2024 End: 12-09-2024 take 1 tablet by mouth twice daily in the morning venlafaxine (EFFEXOR) 75 mg tablet TAKE 1 TABLET BY MOUTH 2 TIMES A DAY IN THE MORNING AND EVENING 03/23/2024 12/09/2024 Discontinued Completed/Discontinued Medications Medication Drug Class(es) Dates Sig (Normalized) Sig (Original) CONTROL - UNKNOWN (1 source) Start: 06-19-2017 cariprazine 1.5 mg oral capsule (11 sources) Atypical Antipsychotic Start: 06-28-2024 End: 12-09-2024 take 1 capsule by mouth once VRAYLAR 1.5 mg capsule Take 1 capsule by mouth every afternoon. 06/28/2024 12/09/2024 Discontinued ferrous sulfate 27 mg oral tablet (19 sources) Start: 06-19-2017 FERROUS SULFATE 27 MG TABS as directed FERROUS SULFATE [id number] Stacey Phillips PA-C ferrous sulfate (IRON ORAL) Take by mouth. Active ferrous sulfate (IRON ORAL) Take by mouth. 0 Active Comment on above: Take by mouth. FLUoxetine 10 mg oral capsule (1 source) Serotonin Reuptake Inhibitor Start: 7 PROZAC 10 MG CAPS as directed FLUOXETINE HCL [id number] Stacey Phillips PA-C fluticasone propionate 0.05 mg/actuat metered dose nasal spray (4 sources) Corticosteroid Start: 4 End: 5 take 2 spray(s) by mouth once daily fluticasone (FLONASE) 50 mcg/actuation nasal spray Indications: Bacterial sinusitis Use 2 Sprays in each nostril once daily. Rinse mouth after use. 16 g 07/07/2024 08/03/2024 Discontinued furosemide 20 mg oral tablet (14 sources) Loop Diuretic Start: 4 End: 5 furosemide (LASIX) 20 mg tablet Take 20 mg by mouth. 03/12/2024 12/09/2024 Discontinued hydrOXYzine pamoate 100 mg oral capsule (12 sources) Antihistamine Start: 1 End: 5 hydrOXYzine Pamoate 100 mg capsule 01/09/2021 08/03/2024 Discontinued Problems Active Problems Problem Classification Problem Date Documented Date Episodic/Chronic Administrative/social admission (1 source) Worried well; Translations: [Person with feared health complaint in whom no diagnosis is made] 07-07-2024 Episodic Anxiety disorders (1 source) Generalized anxiety disorder; Translations: [Generalized anxiety disorder] Onset: 09-15-2024 Chronic Genitourinary symptoms and ill-defined conditions (20 sources) Bacteriuria; Translations: [Bacteriuria] Onset: 02-24-2021 02-24-2021 Episodic Heart valve disorders (2 sources) Cardiac murmur, unspecified; Translations: [Cardiac murmur, unspecified] Onset: 12-19-2024 Episodic Immunizations and screening for infectious disease (3 sources) Encounter for screening for infections with a predominantly sexual mode of transmission; Translations: [Contact with and (suspected) exposure to infections with a predominantly sexual mode of transmission] Onset: 10-10-2024 Episodic Menstrual disorders (1 source) Amenorrhea, unspecified; Translations: [Amenorrhea, unspecified] Onset: 08-20-2024 Chronic Mood disorders (1 source) Major depressive disorder, recurrent, moderate; Translations: [Major depressive disorder, recurrent, moderate] Onset: 09-15-2024 Chronic Nonspecific chest pain (1 source) Other chest pain; Translations: [Other chest pain] Onset: 12-21-2024 Episodic Other complications of (18 sources) Obesity; Translations: [Obesity complicating , unspecified trimester] Onset: 08-31-2016 02-12-2021 Chronic Other diseases of veins and lymphatics (2 sources) Venous insufficiency (chronic) (peripheral); Translations: [Venous insufficiency (chronic) (peripheral)] Onset: 03-12-2024 Episodic Other injuries and conditions due to external causes (2 sources) Foreign body of alimentary tract, part unspecified, initial encounter; Translations: [Foreign body of alimentary tract, part unspecified, initial encounter] Onset: 02-23-2024 Episodic Other lower respiratory disease (1 source) Cough; Translations: [Cough] 10-07-2021 Episodic Other lower respiratory disease (2 sources) Cough; Translations: [Acute cough] 06-06-2024 Episodic Other nutritional; endocrine; and metabolic disorders (1 source) Other obesity; Translations: [Other obesity] Onset: 12-19-2024 Chronic Other nutritional; endocrine; and metabolic disorders (1 source) Body mass index (BMI) 50.0-59.9, adult; Translations: [Body mass index [BMI] 50.0-59.9, adult] Onset: 12-19-2024 Chronic Other nutritional; endocrine; and metabolic disorders (1 source) Morbid (severe) obesity due to excess calories; Translations: [Morbid (severe) obesity due to excess calories] Onset: 08-06-2024 Chronic Other skin disorders (2 sources) Skin tag; Translations: [Other hypertrophic disorders of the skin] 12-09-2024 Episodic Other skin disorders (1 source) Other hypertrophic disorders of the skin; Translations: [Cutaneous skin tags] Onset: 12-09-2024 Episodic Other upper respiratory disease (1 source) Pain in throat Onset: 09-18-2024 Episodic Other upper respiratory infections (2 sources) Bacterial sinusitis; Translations: [Chronic sinusitis, unspecified] 05-16-2024 Chronic Residual codes; unclassified (2 sources) Localized edema; Translations: [Localized edema] Onset: 03-12-2024 Episodic Residual codes; unclassified (1 source) Viral syndrome; Translations: [Other general symptoms and signs] 09-06-2024 Episodic Unclassified (1 source) Acute cough; Translations: [Acute cough] Onset: 06-06-2024 Viral infection (1 source) Viral disease; Translations: [Viral infection, unspecified] Episodic Past or Other Problems Problem Classification Problem Date Documented Da te Episodic/Chronic Cardiac dysrhythmias (2 sources) Palpitations; Translations: [Tachycardia, unspecified] Onset: 03-20-2024 Episodic Complication of device; implant or graft (1 source) Displacement of intrauterine contraceptive device, initial encounter; Translations: [Displacement of intrauterine contraceptive device, initial encounter] Onset: 10-12-2024 Episodic Contraceptive and procreative management (20 sources) Patient encounter status; Translations: [Encounter for other general counseling and advice on contraception] Onset: 09-11-2013 Resolved: 09-28-2016 09-28-2016 Episodic Nausea and vomiting (1 source) Nausea; Translations: [Nausea] Onset: 06-19-2017 06-19-2017 Episodic Other complications of (20 sources) ; Translations: [Supervision of with history of infertility, first trimester] Onset: 02-12-2021 02-23-2021 Episodic Other complications of (2 sources) Nausea and vomiting; Translations: [Vomiting of , unspecified] Onset: 02-12-2021 02-12-2021 Episodic Other complications of (16 sources) Vomiting of , unspecified; Translations: [Unspecified vomiting of , unspecified as to episode of care or not applicable] Onset: 02-12-2021 02-12-2021 Episodic Other complications of (16 sources) Spotting per vagina in ; Translations: [Spotting complicating , unspecified trimester] Onset: 08-26-2016 Resolved: 09-28-2016 09-28-2016 Episodic Other complications of (16 sources) High risk ; Translations: [Supervision of high risk due to social problems, first trimester] Onset: 08-31-2016 Resolved: 04-27-2017 04-27-2017 Episodic Other complications of (16 sources) Chlamydia trachomatis infection in ; Translations: [Other maternal infectious and parasitic diseases complicating , unspecified trimester] Onset: 10-21-2016 Resolved: 04-27-2017 04-27-2017 Episodic Other female genital disorders (1 source) Other specified noninflammatory disorders of vagina; Translations: [Other specified noninflammatory disorders of vagina] Onset: 11-01-2024 Episodic Other gastrointestinal disorders (18 sources) Swallowing painful; Translations: [Dysphagia, unspecified] Onset: 02-03-2014 02-03-2014 Episodic Other screening for suspected conditions (not mental disorders or infectious disease) (5 sources) Encounter for screening for lipoid disorders; Translations: [Encounter for screening for diabetes mellitus] Onset: 04-16-2024 Episodic Other upper respiratory infections (20 sources) Acute pharyngitis; Translations: [Pharyngitis] Onset: 02-03-2014 Resolved: 09-28-2016 06-19-2017 Episodic Residual codes; unclassified (18 sources) FH: Congenital anomaly; Translations: [Family history of other congenital malformations, deformations and chromosomal abnormalities] Onset: 08-26-2016 02-12-2021 Episodic Screening and history of mental health and substance abuse codes (18 sources) H/O: depression; Translations: [Personal history of other mental and behavioral disorders] Onset: 08-26-2016 02-12-2021 Episodic Superficial injury; contusion (2 sources) Contusion of lower back and pelvis, initial encounter; Translations: [Contusion of lower back and pelvis, initial encounter] Onset: 05-08-2023 Episodic Results Test Name Value Interpretation Reference Range Facility MR/[facility] 01-23-2025 MR/[facility] [address] [address] OFFICE VISIT Date of Service: 01/23/25 MR#: [id number] Acct: [id number] Name: CEDRIC HOPE Rep #: [id number] : 1995 Provider: JANEL jaffe Age/Sex: 29/F Location: [facility] Status: Signed Intake Vital Signs 12/19/24 14:07 01/10/25 07:49 01/23/25 13:05 Height 5 ft 4 in 5 ft 4 in 5 ft 4 in BP Intake Visit Reasons: Follow up Allergies No Known Allergies Allergy (Verified 12/31/24 11:39) PFSH Medical History Ulcer of gingiva Depression Anxiety Diabetes Anemia Back pain Gastric reflux Non-smoker CPAP (continuous positive airway pressure) dependence Hypertension Chest pain hypertension History of EKG delivery delivered depression Lab test positive for detection of COVID-19 virus LUIS (obstructive sleep apnea) Infertility Panic attacks Bipolar 1 disorder Asthma Hemorrhoids Surgical History S/P laparoscopic cholecystectomy H/O oral surgery Hx of section Family History Father Brain tumor (benign) Depression CAD (coronary artery disease) Grandmother Hypertension Hyperlipemia Depression Mother Allergies Grandfather Asthma COPD (chronic obstructive pulmonary disease) Social History household members: family current occupational status: employed 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 Reports she has recently found out that her had been cheating on her prior to their separation. Reports she was doing to start taking lisdexamfetamine for BED but could no get insurance approval. Reports she is continuing to use food for coping. Has met with a telegraph mechanic and started increasing protein and water intake. Admits to recent feelings of depression every day. Has had some recent passive SI. Denies plan or intent. Does meet with someone at [facility] for counseling services. Reports she has been having heightened anxiety at times and has even had a panic attack since last appointment. Sleep has been good with trazodone. Some days does struggle to sleep due to anxiety. This tele-medicine visit was performed via audio/video technology. Previous similar episode: Yes Age of first onset of symptoms: 11-20 years Review of Systems Constitutional Reports: change in weight (gain); Denies: fever(s), chills or fatigue Eyes Denies: change in vision or blurry vision Ears, Nose, Mouth, Throat Denies: throat pain or neck pain Cardiovascular Reports: dyspnea; Denies: chest pain or palpitations Respiratory Reports: dyspnea; Denies: wheezing Gastrointestinal Reports: heartburn and bloating; Denies: abdominal pain, nausea, vomiting, diarrhea or constipation Genitourinary Denies: dysuria, urinary frequency or urinary urgency Musculoskeletal Reports: back pain; Denies: neck pain Integumentary/Breast Denies: rash, pruritus or erythema Neurological Reports: headache(s) Psychiatric Reports: anxiety, panic attacks, loss of interest, difficulty concentrating and suicidal ideation (passive); Denies: mood swings, change in sleep pattern, hopelessness, irritability, paranoia, memory loss, visual hallucinations, auditory hallucinations or homicidal ideation Endocrine Denies: fatigue Hematologic/Lymphatic Denies: easy bruising Allergic/Immunologic Denies: wheezing Exam Mental Status Exam - Psych Appearance casually dressed and adequately groomed Attitude cooperative and calm Activity/Motor Behavior MSE activity/motor behavior finding no adventitious movements and appropriate eye contact Speech regular rate, regular volume and regular prosody Mood OK Affect flat Thought Process linear, logical and coherent Thought Content no delusions and no hallucinations Suicidal Ideation passive; No intent and No plans Homicidal Ideation none Attention impaired (per patient self report) Concentration impaired (per patient self report) Sensorium/Orientation awake, alert and oriented x3 Memory/Cognition impaired (per patient self report) Insight good Judgement good Exam Constitution (more content not included)... Normal [facility] Telecommunications Professional Office Visit Reporton 12-31-2024 Telecommunications Professional Office Visit Report [facility], [address] [place] [address] OFFICE VISIT Date of Service: 12/31/24 MR#: [id number] Acct: [id number] Name: CEDRIC HOPE Rep #: [id number] : 1995 Provider: Dr. Laly costa MD Age/Sex: 29/F Location: [facility] Status: Signed Intake Vital Signs 08/20/24 08:49 10/31/24 15:00 12/31/24 07:04 Height 5 ft 4 in 5 ft 4 in 5 ft 4 in Weight: 294 lb 6 oz BMI 50.5 BP 128/69 H Pulse 79 Intake Visit Reasons: 2 WEEK WM *DO NOT SHORTEN* Psychology Physician Required: No Is patient in pain?: No Allergies No Known Allergies Allergy (Verified 12/31/24 11:39) Medications ???Medication ???Instructions ???Recorded ???Confirmed ???Type metoprolol tartrate 25 mg tablet 25 mg PO QDAY 01/04/24 12/31/24 Hi story pantoprazole 40 mg tablet,delayed 40 mg PO DAILY #30 tabs 02/02/24 12/31/24 Rx release levonorgestrel (Mirena) 1 device intrauterine ONCE 5 12/31/24 History trazodone 50 mg tablet 50 mg PO QHS PRN insomnia #90 tabs 09/14/24 12/31/24 Rx venlafaxine 150 mg 150 mg PO QAM #90 caps 09/14/24 Rx capsule,extended release 24 hr Last Menstrual Period: 11/16/23 Zika: Zika virus screening: Negative : No Have you fallen in the past year?: No PFSH PFSH Medical History Ulcer of gingiva Depression Anxiety Diabetes Anemia Back pain Gastric reflux Non-smoker CPAP (continuous positive airway pressure) dependence Hypertension Chest pain hypertension History of EKG delivery delivered depression Lab test positive for detection of COVID-19 virus LUIS (obstructive sleep apnea) Infertility Panic attacks Bipolar 1 disorder Asthma Hemorrhoids Surgical History S/P laparoscopic cholecystectomy H/O oral surgery Hx of section Family History Father Brain tumor (benign) Depression CAD (coronary artery disease) Grandmother Hypertension Hyperlipemia Depression Mother Allergies Grandfather Asthma COPD (chronic obstructive pulmonary disease) Social History household members: family current occupational status: employed 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 Date Name GA/Weeks Outcome Route Bth Weight Infant Gen Labor Lgth Anesthesia Del Locatn Provider FOB 04/12/17 Sondra 40 live - full term 8lbs 14oz Female 23 hours epidural W CH RR Rui 10/01/21 Jelani 39 live - full term Male [facility] Sandra rcanthony Delivery Date: 04/12/17 Last Updated by: Christine Ascencio AoD- failed induction; thick meconium- initially clear thick MSF by delivery Delivery Date: 10/01/21 Last Updated by: Leslie Gibbons RLTCS GDMA2 HPI 2 WEEK WM *DO NOT SHORTEN* Details: CEDRIC HOPE is a 29 year old Female presenting for a weight management consultation. She is here to reduce her weight because she wantes to improved her self body image. she is going through a divorce. she has never tried a formal nutirtional plan, she took phentermine in the past but had high heart rate with it. she has never met with a telegraph mechanic. she is struggling with binge eating episodes, especially when her children are gone. she also has some ADD like qualities that she is talking to psych about possibly being treated for. she is open to any nutirtional plan and is writing down what she eats and sharing it wotih coworkers as part of an accountbaility plan. Female Reproductive History Last Menstrual Period: 11/16/23 Questions: sexually active: Yes ROS Const Reports as per HPI, Denies difficulty sleeping, Denies excessive sweating, Denies fatigue (new onset severe) and Denies fever(s) Eyes Denies change in vision and Denies diplopia ENT Denies dizziness Card Denies chest pain, Denies dyspnea, Denies dyspnea on exertion, Denies palpitations and Denies rapid heart rate Resp Denies dyspnea and Denies dyspnea on exertion GI Reports as per HPI, Denies abdominal pain and Denies constipation Musc Denies numbness Neuro No confusion, No dizziness, No (more content not included)... Normal [facility] HSV 1 AND 2 IgGon 12-20-2024 HSV 1 IgG Non-Reactive Normal Non Reactive [facility] Comment on above: Result Comment: Pl ease note reference interval change HSV-1 IgG testing performed using the [employer] Ele[employer]ys HSV-1 IgG assay. Performed By: #### L 3400.1610, L509.8002, L3890.6102, L3890.6301, L3890.6006 ####[facility] [address] [place], [address] HSV 2 IgG Non-Reactive Normal Non Reactive [facility] Comment on above: Result Comment: Pl ease note reference interval change Current guidelines and recommendations do not recommend routine screening for HSV-2 in asymptomatic individuals, including those that are . The detection of HSV-2 IgG antibodies in a single sample indicates previous exposure to HSV-2 but does not give information as to the site of HSV infection or the timing of exposure. The predictive value of positive and negative results depends on the population's prevalence and the pretest likelihood of HSV-2. HSV-2 IgG testing performed using the [employer] Elecsys HSV-2 IgG assay. Performed at: [address] [id number] Occupational Therapy Specialist: Micheal Dudley PhD, Phone: [phone] Performed By: #### L 3400.1610, L509.8002, L3890.6102, L3890.6301, L3890.6006 ####[facility] [address] [place], [address] 12 Lead EKGon 12-19-2024 12 Lead EKG [facility] Cardiovascular Services [address] [place] [address] 12 Lead EKG 12/19/24 1414 MR#: [id number] Acct: [id number] Name: JAYYCEDRIC MADI Rep #: [id number] : 1995 29 From: Marisol Leonard MD Attending Dr: Dr. Erick Camacho MD Status: DEP ER Ordering Dr: Erick Camacho MD Date: 12/19/24 Location: ED Sex: F C Admitted: Test Reason : CP Blood Pressure : */* mmHG Vent. Rate : 73 BPM Atrial Rate : 73 BPM P-R Int : 174 ms QRS Dur : 92 ms QT Int : 374 ms P-R-T Axes : 30 6 9 degrees QTcB Int : 412 ms Normal sinus rhythm with sinus arrhythmia Normal ECG Confirmed by FENG FORD, ELLY ([id number]), marketing editor SHANT LUNSFORD ([id number]) on 12/24/2024 6:08:55 AM Referred By: TB Confirmed By: ELLY LEONARD MD 12/24/24 0608 Date Marisol Leonard MD CC: Dr. Alecia Rogers MD; Dr. Erick Camacho MD Signed Normal [facility] Basic Metabolic Profile (BMP )on 12-19-2024 BUN/CRE 16.1 RATIO Normal 10-20 [facility] Comment on above: Performed By: #### L 500.2500, L501.4021, L100.0100 #### [facility] Laboratory [address] [place], [address] Calcium [Mass/Vol] 9.3 mg/dL Normal 7.6-11.0 [facility] Comment on above: Performed By: #### L 500.2500, L501.4021, L100.0100 #### [facility] [address] [place], [address] Chloride [Moles/Vol] 99 mmol/L Normal 98-108 [facility] Comment on above: Performed By: #### L 500.2500, L501.4021, L100.0100 #### [facility] [address] [place], [address] CO2 [Moles/Vol] 26.7 mmol/L Normal 21.0-32.0 [facility] Comment on above: Performed By: #### L 500.2500, L501.4021, L100.0100 #### [facility] [address] [place], [address] Creatinine [Mass/Vol] 0.64 mg/dL Low 0.70-1.20 [facility] Comment on above: Performed By: #### L 500.2500, L501.4021, L100.0100 #### [facility] [address] [place], [address] ECRCL 179.41 ml/min Normal 50-250 [facility] Comment on above: Performed By: #### L 500.2500, L501.4021, L100.0100 #### [facility] [address] [place], [address] GAP 12 Normal 5-15 [facility] Comment on above: Performed By: #### L 500.2500, L501.4021, L100.0100 #### [facility] [address] [place], [address] GFR/1.73 sq M.predicted among non-blacks MDRD (S/P/Bld) [Vol rate/Area] 124 mL/min/{1.73_m2} Normal >60 [facility] Comment on above: Result Comment: mL/m in/1.73m2 CKD-EPI Creatinine Equation (2020) Performed By: #### L 500.2500, L501.4021, L100.0100 #### [facility] [address] [place], [address] Glucose [Mass/Vol] 117 mg/dL High 70-99 [facility] Comment on above: Performed By: #### L 500.2500, L501.4021, L100.0100 #### [facility] [address] [place], [address] Potassium [Moles/Vol] 4.1 mmol/L Normal 3.3-5.1 [facility] Comment on above: Performed By: #### L 500.2500, L501.4021, L100.0100 #### [facility] [address] [place], [address] Sodium [Moles/Vol] 138 mmol/L Normal 133-145 [facility] Comment on above: Performed By: #### L 500.2500, L501.4021, L100.0100 #### [facility] [address] [place], [address] Urea nitrogen [Mass/Vol] 10 mg/dL Normal 4-19 [facility] Comment on above: Performed By: #### L 500.2500, L501.4021, L100.0100 #### [facility] [address] [place], [address] CBC W/Diff, Automatedon 06-0 4-5 Absolute Lymph 2.27 X10 3/uL Normal 0.83-4.51 [facility] Comment on above: Performed By: #### L 500.2500, L501.4021, L100.0100 #### [facility] [address] [place], [address] Absolute Neut 8.3 X10 3/uL High 2.0-7.7 [facility] Comment on above: Performed By: #### L 500.2500, L501.4021, L100.0100 #### [facility] [address] [place], [address] Basophils/100 WBC (Bld) 0.4 % Normal 0-1 [facility] Comment on above: Performed By: #### L 500.2500, L501.4021, L100.0100 #### [facility] [address] [place], [address] Eosinophils/100 WBC (Bld) 1.1 % Normal 0-5 [facility] Comment on above: Performed By: #### L 500.2500, L501.4021, L100.0100 #### [facility] [address] [place], [address] Erythrocyte distribution width (RBC) [Ratio] 15.5 % High 11.6-14.6 [facility] Comment on above: Performed By: #### L 500.2500, L501.4021, L100.0100 #### [facility] [address] [place], [address] Hematocrit (Bld) [Volume fraction] 36.8 % Low 37-47 [facility] Comment on above: Performed By: #### L 500.2500, L501.4021, L100.0100 #### [facility] [address] [place], [address] Hemoglobin (Bld) [Mass/Vol] 11.6 g/dL Low 12.0-15.0 [facility] Comment on above: Performed By: #### L 500.2500, L501.4021, L100.0100 #### [facility] [address] [place], [address] IG% 0.400 Normal 0.0-0.9 [facility] Comment on above: Result Comment: IG% - Immature Granulocytes (promyelocytes, myelocytes and metamyelocytes) > 1% indicates that a LEFT SHIFT is Present. Performed By: #### L 500.2500, L501.4021, L100.0100 #### [facility] [address] [place], [address] Lymphocytes/100 WBC (Bld) 20.1 % Normal 19-41 [facility] Comment on above: Performed By: #### L 500.2500, L501.4021, L100.0100 #### [facility] [address] [place], [address] MCH (RBC) [Entitic mass] 24.5 pg Low 27.0-32.0 [facility] Comment on above: Performed By: #### L 500.2500, L501.4021, L100.0100 #### [facility] [address] [place], [address] MCHC (RBC) [Mass/Vol] 31.5 g/dL Low 32-36 [facility] Comment on above: Performed By: #### L 500.2500, L501.4021, L100.0100 #### [facility] [address] [place], [address] MCV (RBC) [Entitic vol] 77.6 fL Low 81-99 [facility] Comment on above: Performed By: #### L 500.2500, L501.4021, L100.0100 #### [facility] [address] [place], [address] Monocytes/100 WBC (Bld) 4.3 % Normal 0-10 [facility] Comment on above: Performed By: #### L 500.2500, L501.4021, L100.0100 #### [facility] [address] [place], [address] Neutrophils/100 WBC (Bld) 73.7 % High 47-70 [facility] Comment on above: Performed By: #### L 500.2500, L501.4021, L100.0100 #### [facility] [address] [place], [address] Nucleated RBC (Bld) [#/Vol] 0 10*3/uL Normal 0-5 [facility] Comment on above: Performed By: #### L 500.2500, L501.4021, L100.0100 #### [facility] [address] [place], [address] Platelet mean volume (Bld) [Entitic vol] 10.1 fL Normal 6.2-12.0 [facility] Comment on above: Performed By: #### L 500.2500, L501.4021, L100.0100 #### [facility] [address] [place], [address] Platelets (Bld) [#/Vol] 285 10*3/uL Normal 150-450 [facility] Comment on above: Performed By: #### L 500.2500, L501.4021, L100.0100 #### [facility] [address] [place], [address] RBC (Bld) [#/Vol] 4.74 10*6/uL Normal 4.2-5.4 [facility] Comment on above: Performed By: #### L 500.2500, L501.4021, L100.0100 #### [facility] [address] [place], [address] RDW SD 43.0 fl Normal 35.1-43.9 [facility] Comment on above: Performed By: #### L 500.2500, L501.4021, L100.0100 #### [facility] [address] [place], [address] WBC (Bld) [#/Vol] 11.3 10*3/uL High 4.4-11.0 [facility] Comment on above: Performed By: #### L 500.2500, L501.4021, L100.0100 #### [facility] [address] [place], [address] Chest 1 View (Portable)on Chest 1 View (Portable) [facility] Imaging Services [address] [place] [address] Chest 1 View (Portable) MR#: [id number] Acct: [id number] Name: CEDRIC HOPE Rep #: [id number] : 1995 F 29 From: Meredith Blevins PCP: Dr. Alecia Rogers MD Status: REG ER Study: Chest 1 View (Portable) Date of Exam: 12/19/24 Exam# [id number] Ordering Dr: Erick Camacho MD PROCEDURE: CHEST 1 VIEW (PORTABLE) 12/19/2024 REASON FOR EXAM: CHEST PAIN TECHNIQUE: Frontal view of the chest. COMPARISON: 06/05/2024 FINDINGS: No focal consolidations. No pleural effusion or pneumothorax. Cardiac silhouette is unchanged. No acute fractures. RAD/Chest 1 View (Portable) IMPRESSION: No focal consolidations. Reading Location: [facility] CC: Dr. Alecia Rogers MD; Dr. Erick Camacho MD Deicer Finisher: Signed Normal [facility] Emergency Department Summary on 12-19-2024 Emergency Department Summary [facility] Medical Records Department [address] [place] [address] Emergency Department Summary 12/19/24 MR#: [id number] Acct: [id number] Name: CEDRIC HOPE Rep #: [id number] : 1995 29 From: Erick Camacho MD PCP: Dr. Alecia Rogers MD Status:REG ER Location: ED HPI History of Present Illness Chief Complaint: Chest Pain Detail of Chief Complaint: Left-sided chest pain Informant: patient Onset/Context/Timing Onset: Hours (Approximately 1 hour prior to presentation) Activity at onset: sudden Timing: Continuous Quality: Positive for Sharp Location: - (Near the tail of the left breast/anterior axillary line) Current Severity: Mild Maximum Severity: Moderate Worsened By: Nothing Relieved By: Nothing Associated Symptoms: Positive for - (There is no history of direct or indirect trauma.); Negative for Nausea, Vomiting, Diaphoresis, Dyspnea, Cough, Fever, Lightheadedness, Acid Reflux or Palpitat ions Narrative Narrative: Patient is a 29-year-old female. She has history of generalized anxiety disorder with panic attacks, GERD, BMI 50.4 who presents with left-sided sharp chest pain. She states this may be a panic attack as her OB yesterday told that she has a heart murmur. She denies fever, chills night sweats. She denies headache. Denies visual or ocular symptoms. She denies rhinorrhea, congestion, postnasal drainage sore throat. She denies neck pain. She denies chest pressure, tightness heaviness. Pain is not made better or worse by anything. She has no history of PE or DVT. She is not on control pills. She denies leg pain, swelling or discoloration. She has not had recent surgery or long distance trip. Prior Similar Symptoms: No Recent Illness/Hospitalization : No CVD Risk Factors: Negative for Hypertension, Diabetes, Hypercholesterolemia or Family History 1' PE Risk Factors: Negative for Recent Travel/Surgery, Recent Immobilization, Prior DVT or PE, Cancer or OCP + Smoking + >/=35 TAD Risk Factors: Negative for Marfan's Syndrome, Hypertension or Family History PFSH [facility] Medical History Ulcer of gingiva Depression Anxiety Diabetes Anemia Back pain Gastric reflux Non-smoker CPAP (continuous positive airway pressure) dependence Hypertension Chest pain hypertension History of EKG delivery delivered depression Lab test positive for detection of COVID-19 virus LUIS (obstructive sleep apnea) Infertility Panic attacks Bipolar 1 disorder Asthma Hemorrhoids Home Medications ???Medication ???Instructions ???Recorded ???Last Taken ???Type metoprolol tartrate 25 mg tablet 25 mg PO QDAY 01/04/24 Unknown His tory pantoprazole 40 mg tablet,delayed 40 mg PO DAILY #30 tabs 02/02/24 Unknown Rx release levonorgestrel (Mirena) 1 device intrauterine ONCE 5 Unknown History trazodone 50 mg tablet 50 mg PO QHS PRN insomnia #90 tabs 09/14/24 Unknown Rx venlafaxine 150 mg 150 mg PO QAM #90 caps 09/14/24 Un known Rx capsule,extended release 24 hr venlafaxine 75 mg capsule,extended 75 mg PO QAM #30 caps 12/05/24 U nknown Rx release 24 hr Allergy/AdvReac Type Severity Reaction Status Date / Time No Known Allergies Allergy Verified 12/19/24 14:07 Family History Father Brain tumor (benign) Depression CAD (coronary artery disease) Grandmother Hypertension Hyperlipemia Depression Mother Allergies Grandfather Asthma COPD (chronic obstructive pulmonary disease) Surgical History S/P laparoscopic cholecystectomy H/O oral surgery Hx of section Social History household members: family current occupational status: employed 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 Smoking Status: Never smoker second hand exposure: No alcohol intake: never substance use type: does not use caffeine: Yes what type of physical activity do you participate in: aerobics frequency: 3-4 times per week seatbelt use: always do you feel safe at home: Yes ROS ROS ED Constitutional Constitutional ED: Denies chills, fever(s), subjective or sweats Eyes Eyes: Reports none ENT ENT ED: Denies ear pain, rhinorrhea or sore throat Cardiovascular Cardiovascular: Reports as per HPI Respiratory/Chest Respiratory/Chest: Denies cough, dyspnea or dyspnea on exertion Gastrointestinal Gastrointestinal: Denies abdominal pain, constipation, diarrhea, melena, nausea or vomiting Musculoskeletal Musculoskeletal: Denies arthralgias, back pain or myalgias Integumentary Denies rash Neurologic Neurologic: Denies paresthesias or weakness Psychiatric Psychiatric: (more content not included)... Normal [facility] L499.0042on 12-19-2024 Trop T High Sen Normal <=14 [facility] Comment on above: Result Comment: Canc elled via OM: Order cancelled - Patient discharged Performed By: #### L 499.0042 #### [facility] Laboratory [address] [place], [place], [address] L499.0043on 12-19-2024 Trop T High Sen Normal <=14 [facility] Comment on above: Result Comment: Canc elled via OM: Order cancelled - Patient discharged Performed By: #### L 501.9985, L100.0100 #### [facility] [address] [place], [address] L501.4021on 12-19-2024 Trop T High Sen < 6 Normal <=14 [facility] Comment on above: Performed By: #### L 501.9985, L100.0100 #### [facility] [address] [place], [address] CBC W/Diff, Automatedon Absolute Lymph 2.29 X10 3/uL Normal 0.83-4.51 [facility] Comment on above: Performed By: #### L 501.9985, L100.0100 #### [facility] [address] [place], [address] Absolute Neut 6.6 X10 3/uL Normal 2.0-7.7 [facility] Comment on above: Performed By: #### L 501.9985, L100.0100 #### [facility] [address] [place], [address] Basophils/100 WBC (Bld) 0.5 % Normal 0-1 [facility] Comment on above: Performed By: #### L 501.9985, L100.0100 #### [facility] [address] [place], [address] Eosinophils/100 WBC (Bld) 1.8 % Normal 0-5 [facility] Comment on above: Performed By: #### L 501.9985, L100.0100 #### [facility] [address] [place], [address] Erythrocyte distribution width (RBC) [Ratio] 15.9 % High 11.6-14.6 [facility] Comment on above: Performed By: #### L 501.9985, L100.0100 #### [facility] [address] [place], [address] Hematocrit (Bld) [Volume fraction] 39.5 % Normal 37-47 [facility] Comment on above: Performed By: #### L 501.9985, L100.0100 #### [facility] [address] [place], [address] Hemoglobin (Bld) [Mass/Vol] 12.0 g/dL Normal 12.0-15.0 [facility] Comment on above: Performed By: #### L 501.9985, L100.0100 #### [facility] [address] [place], [address] IG% 0.300 Normal 0.0-0.9 [facility] Comment on above: Result Comment: IG% - Immature Granulocytes (promyelocytes, myelocytes and metamyelocytes) > 1% indicates that a LEFT SHIFT is Present. Performed By: #### L 501.9985, L100.0100 #### [facility] [address] [place], [address] Lymphocytes/100 WBC (Bld) 23.8 % Normal 19-41 [facility] Comment on above: Performed By: #### L 501.9985, L100.0100 #### [facility] [address] [place], [address] MCH (RBC) [Entitic mass] 24.4 pg Low 27.0-32.0 [facility] Comment on above: Performed By: #### L 501.9985, L100.0100 #### [facility] [address] [place], [address] MCHC (RBC) [Mass/Vol] 30.4 g/dL Low 32-36 [facility] Comment on above: Performed By: #### L 501.9985, L100.0100 #### [facility] [address] [place], [address] MCV (RBC) [Entitic vol] 80.4 fL Low 81-99 [facility] Comment on above: Performed By: #### L 501.9985, L100.0100 #### [facility] [address] [place], [address] Monocytes/100 WBC (Bld) 5.2 % Normal 0-10 [facility] Comment on above: Performed By: #### L 501.9985, L100.0100 #### [facility] [address] [place], [address] Neutrophils/100 WBC (Bld) 68.4 % Normal 47-70 [facility] Comment on above: Performed By: #### L 501.9985, L100.0100 #### [facility] [address] [place], [address] Nucleated RBC (Bld) [#/Vol] 0 10*3/uL Normal 0-5 [facility] Comment on above: Performed By: #### L 501.9985, L100.0100 #### [facility] [address] [place], [address] Platelet mean volume (Bld) [Entitic vol] 10.5 fL Normal 6.2-12.0 [facility] Comment on above: Performed By: #### L 501.85, L100.0100 #### [facility] [address] [place], [address] Platelets (Bld) [#/Vol] 267 10*3/uL Normal 150-450 [facility] Comment on above: Performed By: #### L 501.9985, L100.0100 #### [facility] [address] [place], [address] RBC (Bld) [#/Vol] 4.91 10*6/uL Normal 4.2-5.4 [facility] Comment on above: Performed By: #### L 501.9985, L100.0100 #### [facility] [address] [place], [address] RDW SD 45.6 fl High 35.1-43.9 [facility] Comment on above: Performed By: #### L 501.9985, L100.0100 #### [facility] [address] [place], [address] WBC (Bld) [#/Vol] 9.6 10*3/uL Normal 4.4-11.0 [facility] Comment on above: Performed By: #### L 501.9985, L100.0100 #### [facility] [address] [place], [address] HIVon 12-18-2024 HIV Non-Reactive Normal Nonreactive [facility] Comment on above: Result Comment: Non- Reactive Reactive Repeatedly reactive samples must be confirmed according to CDC recommended confirmatory algorithms. The subresults for either HIVAG or AHIV can be used as an aid in the selection of the confirmation algorithm for reactive samples. Send out specimens with Reactive results to [facility] for confirmation. Order the HIV antibody detection and differentiation: lc#[id number] Performed By: #### L 501.9985, L100.0100 #### [facility] [address] [place], [address] Hemoglobin A1con 12-18-2024 HbA1c (Bld) [Mass fraction] 5.4 % Normal <=5.6 [facility] Comment on above: Result Comment: Norm al < 5.7 % Prediabetic 5.7 - 6.4 % Diabetic >or= 6.5 % Please note range changes. Performed By: #### L 501.9985, L100.0100 #### [facility] [address] [place], [address] Hepatitis C Antibodyon 12-18 Hepatitis C Ab Non-Reactive Normal Nonreactive [facility] Comment on above: Result Comment: Reac tive: Presumptive evidence of antibodies to HCV. Follow CDC recommendations for supplemental testing. Non-Reactive: Antibodies to HCV were not detected; does not exclude the possibility of exposure to HCV Reactive Results are presumptive evidence of antibodies to HCV. Follow CDC recommendations for supplemental testing. Order confirmation testing: HCV Quant by PCR testing - HCVPCR #[id number] Non Reactive: < 0.8 Equivocal: >/= 0.8 to < 1.0 Reactive: >/= 1.0 The CDC requires that a reactive/equivocal HCV antibody result be sent out for confirmation. HCV Quant by PCR testing. Performed By: #### L 3400.1610, L509.8002, L3890.6102, L3890.6301, L3890.6006 ####[facility] [id number] [place], [address] L3890.6102on 12-18-2024 HEP B Surf Ag Non-Reactive Normal Nonreactive [facility] Comment on above: Result Comment: Reac tive: Presumptive evidence of HBV. Repeatedly reactive samples must be confirmed using a neutralization test ([employer] HBsAg Confirmatory Test) Non-Reactive: HBsAg not detected; does not exclude the possibility of exposure to HBV Performed By: #### L 3400.1610, L509.8002, L3890.6102, L3890.6301, L3890.6006 ####[facility] [id number] [place], [place], [id number] Telecommunications Professional Office Visit Reporton 12-18-2024 Telecommunications Professional Office Visit Report [facility] [address], [address] [place] [address] OFFICE VISIT Date of Service: 12/18/24 MR#: [id number] Acct: [id number] Name: CEDRIC HOPE Rep #: [id number] : 1995 Provider: JANEL Esposito Age/Sex: 29/F [place] [facility] [place]: Signed Intake Vital Signs 08/20/24 08:49 10/31/24 15:00 12/05/24 07:31 12/18/24 13:05 Height 5 ft 4 in 5 ft 4 in 5 ft 4 in 5 ft 4 in Weight: 293 lb 2 oz BMI 50.3 BP 122/78 H Pulse 68 Intake Visit Reasons: NEW WEIGHT MANAGEMENT Psychology Physician Required: No Is patient in pain?: No Allergies No Known Allergies Allergy (Verified 12/19/24 14:07) Medications ???Medication ???Instructions ???Recorded ???Confirmed ???Type metoprolol tartrate 25 mg tablet 25 mg PO QDAY 01/04/24 12/18/24 Hi story pantoprazole 40 mg tablet,delayed 40 mg PO DAILY #30 tabs 02/02/24 12/18/24 Rx release levonorgestrel (Mirena) 1 device intrauterine ONCE 5 12/18/24 History trazodone 50 mg tablet 50 mg PO QHS PRN insomnia #90 tabs 09/14/24 12/18/24 Rx venlafaxine 150 mg 150 mg PO QAM #90 caps 09/14/24 Rx capsule,extended release 24 hr venlafaxine 75 mg capsule,extended 75 mg PO QAM #30 caps 12/05/24 0 12/18/24 Rx release 24 hr Last Menstrual Period: 11/16/23 Zika: Zika virus screening: Negative : No Have you fallen in the past year?: No PFSH PFSH Medical History Ulcer of gingiva Depression Anxiety Diabetes Anemia Back pain Gastric reflux Non-smoker CPAP (continuous positive airway pressure) dependence Hypertension Chest pain hypertension History of EKG delivery delivered depression Lab test positive for detection of COVID-19 virus LUIS (obstructive sleep apnea) Infertility Panic attacks Bipolar 1 disorder Asthma Hemorrhoids Surgical History S/P laparoscopic cholecystectomy H/O oral surgery Hx of section Family History Father Brain tumor (benign) Depression CAD (coronary artery disease) Grandmother Hypertension Hyperlipemia Depression Mother Allergies Grandfather Asthma COPD (chronic obstructive pulmonary disease) Social History household members: family current occupational status: employed 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 Date Name GA/Weeks Outcome Route Bth Weight Infant Gen Labor Lgth Anesthesia Del Locatn Provider FOB 04/12/17 Sondra 40 live - full term 8lbs 14oz Female 23 hours epidural W CH RR Rui 10/01/21 Jelani 39 live - full term Male [facility] Ma rcanthony Delivery Date: 04/12/17 Last Updated by: Christine Ascencio AoD- failed induction; thick meconium- initially clear thick MSF by delivery Delivery Date: 10/01/21 Last Updated by: Leslie Gibbons [facility] GDMA2 HPI NEW WEIGHT MANAGEMENT Details: CEDRIC HOPE is a 29 year old Female presenting for a weight management consultation. She is here to reduce her weight because she would like to lose weight; she would like to do this to be happier in her own self; she has noticed since March she has lost approx 25 pounds and feels her clothes fit better. This has been thomas improvement to her confidence. She is also a mother and would like to be involved in their lives and activity without feeling out of breath. Recently went through divorce; feels she is in a better place now but still has days that are hard. Female Reproductive History Last Menstrual Period: 11/16/23 Questions: sexually active: Yes ROS Const Reports as per HPI, Denies difficulty sleeping, Denies excessive sweating, Denies fatigue (new onset severe) and Denies fever(s) Eyes Denies change in vision and Denies diplopia ENT Denies dizziness Card Denies chest pain, Denies dyspnea, Denies dyspnea on exertion, Denies palpitations and Denies rapid heart rate Resp Denies dyspnea and Denies dyspnea on exertion GI Reports as per HPI, Denies abdominal pain and Denies constipation Musc Denies numbness Neuro No confusion, No dizzine (more content not included)... Normal [facility] Syphilis Antibodieson 2024 Syphilis Abs Non-Reactive Normal Nonreactive [facility] Comment on above: Performed By: #### L 122.5025, L100.0100 #### [facility] [address] [place], [address] BACTERIAL VAGINOSIS NAATon 0 12-09-2024 Lactobacillus crispatus+gasseri+ jensenii + Gardnerella vaginalis + Atopobium vaginae rRNA VINOD+probe Ql (Vag fld) Not detected Normal Not detected [facility] Comment on above: Order Comment: Speci men Type: SWABOrdering Facility: [facility] Address: [address] [place] [address] Performed By: #### 6 30-4 #### [facility] CLIA [id number] [address] [place] [address] [place] Bacteria Ur Culton Bacteria identified Cx Nom (U) CULTURE, URINE: No growth (<1,000 CFU/ml) Normal [facility] Comment on above: Performed By: #### 6 30-4 #### [facility] CLIA [id number] [address] [place] [address] [place] C. trachomatis+N. gonorrhoea e DNA VINOD+probe Ql (Unsp spec)on 12-09-2024 C. trachomatis rRNA VINOD+probe Ql (Unsp spec) Not detected Normal Not detected [facility] Comment on above: Order Comment: Speci men Type: SWABOrdering Facility: [facility] Address: [address] [place] [address] Performed By: #### 6 30-4 #### [facility] CLIA [id number] [address] [place] [address] [place] N. gonorrhoeae rRNA VINOD+probe Ql (Unsp spec) Not detected Normal Not detected [facility] Comment on above: Order Comment: Speci men Type: SWABOrdering Facility: [facility] Address: [address] [place] [address] Performed By: #### 6 30-4 #### [facility] CLIA [id number] [address] [place] [address] OF [place] CHRISSIE/TRICHOMONAS NAATon 0 12-09-2024 C. glabrata RNA VINOD+probe Ql (Vag fld) Not detected Normal Not detected [facility] Comment on above: Order Comment: Speci men Type: SWABOrdering Facility: [facility] Address: [address] [place] [address] Performed By: #### C VTV ####[facility] [id number] [address] [place] Chrissie sp DNA VINOD+probe Ql (Vag fld) Not detected Normal Not detected [facility] Comment on above: Order Comment: Speci men Type: SWABOrdering Facility: [facility] Address: [address] [place] [address] Result Comment: The Chrissie species group target includes C. albicans, C. tropicalis, C. parapsilosis, and C. dubliniensis. Performed By: #### C VTV ####[facility] [id number] [address] [place] T. vaginalis DNA VINOD+probe Ql (Unsp spec) Not detected Normal Not detected [facility] Comment on above: Order Comment: Speci men Type: SWABOrdering Facility: [facility] Address: [address] [place] [address] Performed By: #### C VTV ####[facility] [id number] [place] [address] [place] CNOVon 12-09-2024 CNOV Office Visit ([facility] ) CEDRIC HOPE ([id number]) 1995 F Date Time Provider Department 12/09/24 10:45 AM NICOLASA DICKENS [facility] During your visit today, we recorded the following information about you: Temperature Pulse Blood pressure Weight 98.1 degrees 65/minute 120/74 134.9 kg Height 1.6 m Nicolasa Dickens APRN.[facility] 12/09/2024 11:09 AM Signed [facility] Subjective Cedric Hope is a 29 year old female. Patient presents with: STD HPI Vaginal Irritation and Discomfort: - Persistent irritation and discomfort x2 weeks. - Describes sensation as irritation; denies pruritus. - Denies noticing any discharge or odor. - Recent treatment for BV; no odor noted during BV episode. - History of chlamydia with similar symptoms. - Recent use of amoxicillin, followed by two doses of antifungal medication for suspected yeast infection, with persistent symptoms. - Denies any current rash or lesions. Urinary Frequency: - Increased urinary frequency; denies dysuria. - Attributed to increased water intake for weight loss efforts. Review of Systems Constitutional: Negative for chills and fever. Respiratory: Negative. Cardiovascular: Negative. Genitourinary: Positive for frequency. Negative for difficulty urinating, dysuria, flank pain, hematuria and urgency. Musculoskeletal: Negative for back pain. Skin: Negative for color change and rash. Genitourinary: (+) irritation, (+) discomfort, (+) urinary frequency, (-) itching, (-) discharge, (-) burning, (-) odor Objective BP 120/74 Pulse 65 Temp 36.7 ?C (98.1 ?F) Ht 160 cm (5' 3) Wt 134.9 kg (297 lb 6.4 oz) LMP 07/05/2024 (Within Days) SpO2 98% BMI 52.68 kg/m? PAST MEDICAL HISTORY Diagnosis Date Chlamydia 2013 and 2017 Depression Infertility, female Panic attacks depression PAST SURGICAL HISTORY Procedure Laterality Date DELIVERY ONLY 04/12/2017 PAST SURGICAL HISTORY OF oral (gum) surgery ALLERGIES Patient has no known allergies. MEDICATIONS venlafaxine ER (EFFEXOR XR) 150 mg 24 hr capsule Take 150 mg by mouth every morning. traZODone (DESYREL) 50 mg tablet Take 50 mg by mouth at bedtime as needed. Brompheniramine-Pseudoe ph-DM (BROMFED DM) 2-30-10 mg/5 mL syrup Take 5 mL by mouth four times a day as needed. (Patient not taking: Reported on 09/18/2024) pantoprazole DR (PROTONIX) 40 mg tablet Take 40 mg by mouth once daily. metoprolol tartrate, short acting, (LOPRESSOR) 25 mg tablet TAKE 1/2 TABLET BY MOUTH 2 TIMES A DAY (Patient not taking: Reported on 09/18/2024) SPRINTEC 0.25-35 mg-mcg per tablet (Patient not taking: Reported on 08/03/2024) omeprazole (PRILOSEC) 20 mg capsule Take 20 mg by mouth once daily. (Patient not taking: Reported on 08/03/2024) busPIRone (BUSPAR) 10 mg tablet (Patient not taking: Reported on 08/03/2024) citalopram (CELEXA) 40 mg tablet (Patient not taking: Reported on 08/03/2024) oxyCODONE-acetaminophen (PERCOCET) 5-325 mg tablet (Patient not taking: Reported on 05/11/2022) labetalol (TRANDATE) 100 mg tablet (Patient not taking: Reported on 05/11/2022) ibuprofen (MOTRIN) 600 mg tablet (Patient not taking: Reported on 05/11/2022) ferrous sulfate (IRON ORAL) Take by mouth. (Patient not taking: Reported on 08/03/2024) docusate sodium (COLACE ORAL) Take by mouth. (Patient not taking: Reported on 05/11/2022) Cmlchwdb-Tu-Asb-Fe-FA ( VITAMIN) tab Take 1 tablet by mouth. (Patient not taking: Reported on 05/11/2022) escitalopram oxalate (LEXAPRO) 20 mg tablet Take 1 tablet by mouth once daily. (Patient not taking: Reported on 10/07/2021 ) FAMILY HISTORY Problem Relation Age of Onset Allergies Mother Anxiety disorder Mother other (brain tumor benign) Father other (Depression, anxiety , panic attacks) Father Hypertension Father No Known Problems Sister No Known Problems Sister No Known Problems Brother No Known Problems Brother No Known Problems Brother Hypertension Maternal Grandmother Lipids Maternal Grandmother other (Depression) Maternal Grandmother Breast Cancer Maternal Grandmother Asthma Maternal Grandfather COPD Maternal Grandfather Heart Paternal Grandmother COPD Paternal Grandfather Liver Disease Paternal Grandfather No Known Problems Daughter Social History Tobacco Use Smoking status: Never Smokeless tobacco: Never Vaping Use Vaping status: Never Used Substance Use Topics Alcohol use: No Drug use: No Physical Exam Vitals and nursing note reviewed. Exam conducted with a database manager present. Constitutional: General: She is not in acute distress. Appearance: Normal appearance. She is not ill-appearing. Cardiovascular: Rate and Rhythm: Normal rate. Pulmonary: Effort: Pulmonary effort is normal. Genitourinary: General: Normal vulva. Exam position: Lithotomy position. (more content not included)... Normal [facility] UA DIP, URINE (POC)on 2024 BILIRUBIN UA (POCT) Negative Negative [facility] CLARITY UA (POCT) Clear [facility] COLOR UA (POCT) Yellow [facility] GLUCOSE UA (POCT) Negative Negative mg/dL [facility] Hemoglobin Ql (U) Trace-intact Abnormal Negative [facility] Interpretation and review of laboratory results Abnormal [facility] KETONE UA (POCT) Negative Negative mg/dL [facility] LEUKOCYTES UA (POCT) Negative Negative [facility] NITRITE UA (POCT) Negative Negative [facility] PH UA (POCT) 7 4.5 - 8.0 [facility] Protein Ql (U) Negative Negative mg/dL [facility] SPECIFIC GRAVITY UA (POCT) 1.015 1.005 - 1.030 [facility] UROBILINOGEN UA (POCT) 0.2 Normal E.U./dL [facility] Location:[address], [place], [place], [address] [place] [address] POINT OF CARE [facility] MR/BMS.BPon 12-05-2024 MR/BMS.BP [address], [address] [place] [address] OFFICE VISIT Date of Service: 12/05/24 MR#: [id number] Acct: [id number] Name: CEDRIC HOPE Rep #: [id number] : 1995 Provider: JANEL jaffe Age/Sex: 29/F Location[place] [facility] [place] Status: Signed Intake Vital Signs 10/31/24 15:00 12/05/24 07:31 Height 5 ft 4 in 5 ft 4 in BP Intake Visit Reasons: follow up Allergies No Known Allergies Allergy (Verified 10/31/24 14:56) PFSH Medical History Ulcer of gingiva Depression Anxiety Diabetes Anemia Back pain Gastric reflux Non-smoker CPAP (continuous positive airway pressure) dependence Hypertension Chest pain hypertension History of EKG delivery delivered depression Lab test positive for detection of COVID-19 virus LUIS (obstructive sleep apnea) Infertility Panic attacks Bipolar 1 disorder Asthma Hemorrhoids Surgical History S/P laparoscopic cholecystectomy H/O oral surgery Hx of section Family History Father Brain tumor (benign) Depression CAD (coronary artery disease) Grandmother Hypertension Hyperlipemia Depression Mother Allergies Grandfather Asthma COPD (chronic obstructive pulmonary disease) Social History household members: family current occupational status: employed 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 Reports she has been having some increased depressive feelings. Denies any self harm or any SI. Reports a lot of her depressive symptoms are related to her and wanting to file for divorce but not doing this. Report the warmer weather is hard because she is used to spending time with her and being at the cristobal with him which she no longer is doing. Reports concern with ADHD. Does struggle with enjoying leisure activities. Reports anxiety has been well managed and she has not had any panic attacks. Is able to pay close attention to detail. Is struggling to stay on task at work. Does feel she has been more restless. Denies making careless mistakes. Does make some impulsive decisions when she is bored and will spend money. Reports she has been wanting to binge eat but has been trying to control this. Has not gained weight. Has transitioned her counselor to another Sabian[employer] counselor and is enjoying this. Feels she is able to follow though with instructions but it will take time. Does listen when being spoken to directly. Does report interrupting others. Admits to difficulties with organizing tasks and activities. Is often late to things. This tele-medicine visit was performed via audio/video technology. Previous similar episode: Yes Age of first onset of symptoms: 11-20 years Review of Systems Constitutional Reports: change in weight (has lost 30 pounds ); Denies: fever(s), chills or fatigue Eyes Denies: change in vision or blurry vision Ears, Nose, Mouth, Throat Denies: throat pain or neck pain Cardiovascular Reports: dyspnea; Denies: chest pain or palpitations Respiratory Reports: dyspnea; Denies: wheezing Gastrointestinal Reports: heartburn and bloating; Denies: abdominal pain, nausea, vomiting, diarrhea or constipation Genitourinary Denies: dysuria, urinary frequency or urinary urgency Musculoskeletal Reports: back pain; Denies: neck pain Integumentary/Breast Denies: rash, pruritus or erythema Neurological Reports: headache(s) Psychiatric Reports: loss of interest and difficulty concentrating; Denies: anxiety, mood swings, panic attacks, change in sleep pattern, hopelessness, irritability, paranoia, memory loss, visual hallucinations, auditory hallucinations, suicidal ideation or homicidal ideation Endocrine Denies: fatigue Hematologic/Lymphatic Denies: easy bruising Allergic/Immunologic Denies: wheezing Exam Mental Status Exam - Psych Appearance casually dressed and adequately groomed Attitude cooperative and calm Activity/Motor Behavior MSE activity/motor behavior finding no adventitious movements and appropriate eye contact Speech regular rate, regular volume and regular prosody Mood euythmic Affect full range (more content not included)... Normal [facility] Chlamydia/GC VINOD aptimaon CHLAMY,NUC ACID Negative Normal Negative [facility] Comment on above: Performed By: #### L 100.0100, L501.4020, L500.2500 #### [facility] [address] [place], [address] GC BY NUC ACID Negative Normal Negative [facility] Comment on above: Result Comment: Perf ormed at: =G - [facility] [address] Jack Fierro W [id number] Occupational Therapy Specialist: Tanika Boyd MD, Phone: [phone] Performed By: #### L 100.0100, L501.4020, L500.2500 #### [facility] [address] [place], [place], [address] Genital Culture Comprehensiv vania 11-01-2024 VAC Reason for Exam: vaginal discharge Normal vaginal hesham isolated. No yeast, Gardnerella, Neisseria or beta-hemolytic Streptococcus isolated. Normal [facility] Comment on above: Performed By: #### L 100.0100, L501.4020, L500.2500 #### [facility] [address] [place], [address] Gram Stainon 10-31-2024 GS Reason for Exam: vaginal discharge Gram Stain 2+ Gram positive rods 1+ Gram positive cocci 2+ Gram variable kathryn No Gram negative diplococci Score =4 Interpretation: 0-3 Normal, 4-6 Intermediate, 7-10 Positive BV Normal [facility] Comment on above: Performed By: #### L 100.0100, L501.4020, L500.2500 #### [facility] [address] [place], [address] Telecommunications Professional Office Visit Reporton 10-31-2024 Telecommunications Professional Office Visit Report [facility] [address], [address] [place] [address] OFFICE VISIT Date of Service: 10/31/24 MR#: [id number] Acct: [id number] Name: CEDRIC HOPE Rep #: [id number] : 1995 Provider: JANEL Esposito Age/Sex: 29/F [place] [facility] [place]: [place] Intake Vital Signs 10/11/24 08:54 10/29/24 08:49 10/31/24 14:56 10/31/24 15:00 Height 5 ft 4 in 5 ft 4 in 5 ft 4 in 5 ft 4 in Weight: 291 lb 294 lb BMI 49.9 50.4 BP 121/70 H 123/72 H Intake Visit Reasons: Yeast Infection FU Psychology Physician Required: No Is patient in pain?: No Allergies No Known Allergies Allergy (Verified 10/31/24 14:56) Medications ???Medication ???Instructions ???Recorded ???Confirmed ???Type metoprolol tartrate 25 mg tablet 25 mg PO QDAY 01/04/24 10/31/24 Hi story pantoprazole 40 mg tablet,delayed 40 mg PO DAILY #30 tabs 02/02/24 10/31/24 Rx release levonorgestrel (Mirena) 1 device intrauterine ONCE 5 10/31/24 History trazodone 50 mg tablet 50 mg PO QHS PRN insomnia #90 tabs 09/14/24 10/31/24 Rx venlafaxine 150 mg 150 mg PO QAM #90 caps 09/14/24 Rx capsule,extended release 24 hr Post menopausal: No Patient : No Control [facility] Medical History Ulcer of gingiva Depression Anxiety Diabetes Anemia Back pain Gastric reflux Non-smoker CPAP (continuous positive airway pressure) dependence Hypertension Chest pain hypertension History of EKG delivery delivered depression Lab test positive for detection of COVID-19 virus LUIS (obstructive sleep apnea) Infertility Panic attacks Bipolar 1 disorder Asthma Hemorrhoids Surgical History S/P laparoscopic cholecystectomy H/O oral surgery Hx of section Family History Father Brain tumor (benign) Depression CAD (coronary artery disease) Grandmother Hypertension Hyperlipemia Depression Mother Allergies Grandfather Asthma COPD (chronic obstructive pulmonary disease) Social History household members: family current occupational status: employed 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 She feels overall her symptoms are improved; she now occasionally has vaginal itching. Denies a discharge. Denies fever, chills, pelvic pain. She would like to be retested for GC/CH as well. History 2 Elective abortions Hx Para 2 Spontaneous abortions Hx # Term Pregnancies Ectopic pregnancies Hx # Pregnancies Multiple births # of living children 2 Past Pregnancies Del. Date Name GA/Weeks Outcome Route Bth Weight Gen Labor Lgth Anesthesia Del Locatn Provider FOB 04/12/17 Sondra 40 live - full term 8lbs 14oz Female 23 hours epidural W CH RR Rui 10/01/21 Jelani 39 live - full term Male [facility] Ma rcanthony Delivery Date: 04/12/17 Last Updated by: Christine Ascencio AoD- failed induction; thick meconium- initially clear thick MSF by delivery Delivery Date: 10/01/21 Last Updated by: Leslie Gibbons RLTCS GDMA2 ROS Const Constitutional: Denies chills, fatigue or fever(s) GI GI: Denies abdominal pain or nausea : Reports vaginal pruritus; Denies difficulty voiding, dysuria, hematuria, pelvic pain, urinary incontinence, vaginal discharge, vaginal dryness or vaginal odor Skin Skin/Breast: Denies rash Exam Const General: cooperative, healthy appearing, no acute distress and well groomed Nutritional Appearance: well nourished Orientation: oriented x3 HENMT Head: normal to inspection and normocephalic Resp Effort Inspection: normal respiratory effort and able to speak in complete sentences External Female Exam: normal external appearance and normal appearance of the urethra Urethra: normal appearance of the urethra Speculum Exam - Vagina: normal appearance of the vagina, normal vaginal discharge and no lesions Speculum Exam - Cervix: normal appearance of the cervix Skin General: no rashes or lesions noted Neuro General: patient oriented x3 Psych Appearance: well kempt Affect: normal affect Attitude: cooperative Coding Level of Care Co (more content not included)... Normal [facility] Genital Culture Comprehensiv vania 10-15-2024 VAC Reason for Exam: vaginal discharge No yeast, Gardnerella, Neisseria or beta-hemolytic Streptococcus isolated. Escherichia coli Amount Growth 3+ * This is an amended result. * A prior result that was reported as final has been changed. 10/15/24 0850 by CARLOS Escherichia coli: REACTION Ampicillin Islt SOCO >=32 Ampicillin+Sulbac Islt SOCO 16 I Cefepime Islt SOCO <=0.12 S cefTRIAXone Islt SOCO <=0.25 S Ciprofloxacin Islt SOCO <=0.06 S B-Lactamase Extended Susc Islt NEG Gentamicin Islt SOCO <=1 S levoFLOXacin Islt SOCO <=0.12 S Meropenem Islt SOCO <=0.25 S Pip+Tazo Islt SOCO <=4 S TMP SMX Islt SOCO <=20 S Normal [facility] Comment on above: Performed By: #### M 100.3200, M100.1999 ####[facility] [address] [place], [place], [address] Gram Stainon 10-11-2024 GS Reason for Exam: vaginal discharge Gram Stain 2+ Gram positive rods No Gram negative diplococci No White Blood Cells Score = 2 Interpretation: 0-3 Normal, 4-6 Intermediate, 7-10 Positive BV Normal [facility] Comment on above: Performed By: #### M 100.3200, M100.1999 ####[facility] [id number] [place], [address] Telecommunications Professional Office Visit Reporton 10-11-2024 Telecommunications Professional Office Visit Report [facility] [address], [address] [place] [address] OFFICE VISIT Date of Service: 10/11/24 MR#: [id number] Acct: [id number] Name: CEDRIC HOPE Rep #: [id number] : 1995 Provider: JANEL Esposito Age/Sex: 29/F [place] [facility] [place] Signed Intake Vital Signs 10/01/24 11:32 10/11/24 08:54 Height 5 ft 4 in 5 ft 4 in Weight: 291 lb BMI 49.9 BP 121/70 H Intake Visit Reasons: possible yeast infection Psychology Physician Required: No Allergies No Known Allergies Allergy (Verified 10/11/24 08:56) Medications ???Medication ???Instructions ???Recorded ???Confirmed ???Type metoprolol tartrate 25 mg tablet 25 mg PO QDAY 01/04/24 10/11/24 Hi story pantoprazole 40 mg tablet,delayed 40 mg PO DAILY #30 tabs 02/02/24 10/11/24 Rx release levonorgestrel (Mirena) 1 device intrauterine ONCE 5 10/11/24 History trazodone 50 mg tablet 50 mg PO QHS PRN insomnia #90 tabs 09/14/24 10/11/24 Rx venlafaxine 150 mg 150 mg PO QAM #90 caps 09/14/24 Rx capsule,extended release 24 hr metronidazole 0.75 % (37.5 mg/5 1 appful vaginal QDAY 5 days #70 0 10/11/24 10/11/24 Rx gram) vaginal gel grams Post menopausal: No Patient : No : No PFSH Medical History Ulcer of gingiva Depression Anxiety Diabetes Anemia Back pain Gastric reflux Non-smoker CPAP (continuous positive airway pressure) dependence Hypertension Chest pain hypertension History of EKG delivery delivered depression Lab test positive for detection of COVID-19 virus LUIS (obstructive sleep apnea) Infertility Panic attacks Bipolar 1 disorder Asthma Hemorrhoids Surgical History S/P laparoscopic cholecystectomy H/O oral surgery Hx of section Family History Father Brain tumor (benign) Depression CAD (coronary artery disease) Grandmother Hypertension Hyperlipemia Depression Mother Allergies Grandfather Asthma COPD (chronic obstructive pulmonary disease) Social History household members: family current occupational status: employed 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 She reports she does not have a discharge. She started feeling this after having an ultrasound completed. She has also been using a soap with scent and beads in it. Has had similar situation start after using this soap in the past. Mirena IUD placed x 6 weeks ago- ultrasound completed to ensure IUD in appropriate place. History 2 Elective abortions Hx Para 2 Spontaneous abortions Hx # Term Pregnancies Ectopic pregnancies Hx # Pregnancies Multiple births # of living children 2 Past Pregnancies Del. Date Name GA/Weeks Outcome Route Bth Weight Gen Labor Lgth Anesthesia Del [facility] Provider FOB 04/12/17 Sondra 40 live - full term 8lbs 14oz Female 23 hours epidural W CH RR Rui 10/01/21 Jelani 39 live - full term Male [facility] Ma rcanthony Delivery Date: 04/12/17 Last Updated by: Christine Ascencio AoD- failed induction; thick meconium- initially clear thick MSF by delivery Delivery Date: 10/01/21 Last Updated by: Leslie Gibbons [facility] GDMA2 ROS Const Constitutional: Denies chills, fatigue or fever(s) GI GI: Denies abdominal pain or nausea : Reports vaginal odor and vaginal pruritus; Denies difficulty voiding, dysuria, hematuria, pelvic pain, urinary incontinence, vaginal discharge or vaginal dryness Skin Skin/Breast: Denies rash Exam Const General: cooperative, healthy appearing, no acute distress and well groomed Nutritional Appearance: well nourished Orientation: oriented x3 HENMT Head: normal to inspection and normocephalic Resp Effort Inspection: normal respiratory effort and able to speak in complete sentences GI Inspection: normal to inspection Palpation: soft and no hepatosplenomegaly External Female Exam: normal external appearance and normal appearance of the urethra Urethra: normal appearance of the urethra Speculum Exam - Vagina: abnormal vaginal discharge (brown-- (more content not included)... Normal [facility] Chlamydia/GC VINOD aptimaon 03 -19-2025 CHLAMY,NUC ACID Negative Normal Negative [facility] Comment on above: Performed By: #### L 7000.1800 ####[facility] [address] [place], [place], [address] GC BY NUC ACID Negative Normal Negative [facility] Comment on above: Result Comment: Perf ormed at: =G - [facility] [address] [id number] Occupational Therapy Specialist: Tanika Boyd MD, Phone: [phone] Performed By: #### L 7000.1800 ####[facility] [address] [place], [place], [address] Transvaginal Non-on 10-03-2024 Transvaginal Non- [facility] [address] [place], [place] [address] Transvaginal Non- MR#: [id number] Acct: [id number] Name: CEDRIC HOPE Rep #: [id number] : 1995 F 29 From: Stacey Bella MD PCP: Dr. Alecia Rogers MD Status: REG CLI Study: Transvaginal Non- Date of Exam: Exam# [id number] Ordering Dr: Jordyn Carrillo PROCEDURE: TRANSVAGINAL NON- (USTVAG), 10/03/2024 REASON FOR EXAM: LOST IUD STRINGS TECHNIQUE: Grayscale and color doppler transabdominal and transvaginal pelvic ultrasound was performed. COMPARISON: None FINDINGS: Uterus: 8.2 x 5.1 x 4.4 cm, Anteverted. Unremarkable echotexture. Endometrium: 12 mm, trilaminar proliferative phase appearance. IUD is present. The body appears located in the fundus, unable to establish arm positions on images obtained. Cervix: Nabothian cysts. Right ovary: Visualized only by suboptimal transabdominal approach. 3.1 x 2.4 x 1.9 cm (estimated volume 7.0 mL), unremarkable. Left ovary: Visualized only by suboptimal transabdominal approach. 3.1 x 2.1 x 2.0 cm (estimated volume 6.5 mL), unremarkable. Free fluid: None visualized. Other: None. US/Transvaginal Non- IMPRESSION: 1. IUD is present with body in the fundus. Difficult to establish arm positions on images obtained. 2. Additional description as above. Reading Location: [id number] CC: ZITA Carrillo; Dr. Alecia Rogers MD Deicer Finisher: Signed Normal [facility] Telecommunications Professional Office Visit Reporton 10-01-2024 Telecommunications Professional Office Visit Report [facility] [address], [address] [place] [address] OFFICE VISIT Date of Service: 10/01/24 MR#: [id number] Acct: [id number] Name: CEDRIC HOPE Rep #: [id number] : 1995 Provider: ZITA Morejon ams Age/Sex: 29/F [place] [facility] [place]: Signed Intake Vital Signs 08/20/24 08:49 09/18/24 13:01 10/01/24 11:31 10/01/24 11:32 Height 5 ft 4 in 5 ft 4 in 5 ft 4 in 5 ft 4 in Weight: 295 lb 4 oz BMI 50.6 BP 125/77 H Intake Visit Reasons: 6 WK STRING CK Chief Complaint: 6wk string check Is patient in pain?: No Allergies No Known Allergies Allergy (Verified 10/01/24 11:31) Medications ???Medication ???Instructions ???Recorded ???Confirmed ???Type metoprolol tartrate 25 mg tablet 25 mg PO QDAY 01/04/24 10/01/24 Hi story pantoprazole 40 mg tablet,delayed 40 mg PO DAILY #30 tabs 02/02/24 10/01/24 Rx release levonorgestrel (Mirena) 1 device intrauterine ONCE 5 10/01/24 History trazodone 50 mg tablet 50 mg PO QHS PRN insomnia #90 tabs 09/14/24 10/01/24 Rx venlafaxine 150 mg 150 mg PO QAM #90 caps 09/14/24 Rx capsule,extended release 24 hr Control Method: Mirena PFSH Medical History Ulcer of gingiva Depression Anxiety Diabetes Anemia Back pain Gastric reflux Non-smoker CPAP (continuous positive airway pressure) dependence Hypertension Chest pain hypertension History of EKG delivery delivered depression Lab test positive for detection of COVID-19 virus LUIS (obstructive sleep apnea) Infertility Panic attacks Bipolar 1 disorder Asthma Hemorrhoids Surgical History S/P laparoscopic cholecystectomy H/O oral surgery Hx of section Family History Father Brain tumor (benign) Depression CAD (coronary artery disease) Grandmother Hypertension Hyperlipemia Depression Mother Allergies Grandfather Asthma COPD (chronic obstructive pulmonary disease) Social History household members: family current occupational status: employed 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 No concerns with it. Does not do string checks at home. Also requesting GCC testing today- does not want to discuss why but requesting swab. History 2 Elective abortions Hx Para 2 Spontaneous abortions Hx # Term Pregnancies Ectopic pregnancies Hx # Pregnancies Multiple births # of living children 2 Past Pregnancies Del. Date Name GA/Weeks Outcome Route Bth Weight Gen Labor Lgth Anesthesia Del Locatn Provider FOB 04/12/17 Sondra 40 live - full term 8lbs 14oz Female 23 hours epidural W CH RR Rui 10/01/21 Jelani 39 live - full term Male [facility] Sandra rcanthony Delivery Date: 04/12/17 Last Updated by: Christine Ascencio AoD- failed induction; thick meconium- initially clear thick MSF by delivery Delivery Date: 10/01/21 Last Updated by: Leslie STOKESTCS GDMA2 ROS Const Constitutional: Reports system reviewed and no additional complaints, except as documented Cardio Card: Reports system reviewed and no additional complaints, except as documented Resp Resp: Reports system reviewed and no additional complaints, except as documented GI GI: Reports system reviewed and no additional complaints, except as documented : Reports system reviewed and no additional complaints, except as documented; Denies difficulty voiding, dysuria or urinary frequency Skin Skin/Breast: Reports system reviewed and no additional complaints, except as documented Neuro Neuro: Reports system reviewed and no additional complaints, except as documented Psych Psych: Reports system reviewed and no additional complaints, except as documented Exam Const General: cooperative, healthy appearing, comfortable and no acute distress Orientation: alert, awake and oriented x3 Resp Effort Inspection: normal respiratory effort, able to speak in complete sentences and symmetric chest movement GI Inspection: normal to inspection Palpation: soft Rectal Exam: visual inspection normal External Female Exam: normal external appearance and normal appearance of the urethra (more content not included)... [facility] Visit (UCWSTR ) CEDRIC HOPE ([id number]) 1995 F Date Time Provider Department 09/18/24 12:30 PM NICOLASA DICKENS [facility] During your visit today, we recorded the following information about you: Temperature Pulse Respiration Blood pressure 98.4 degrees 73/minute 16/minute 126/80 Weight 132.1 kg Nicolasa Dickens, LEATHA.[employer] 09/18/2024 1:22 PM Signed [facility] Subjective Cedric Mejia Jayy is a 29 year old female. HPI Pt is a 29 y/o female who presents with sore throat and noticed white spots on her tonsils x this am. Pt reports that her daughter was recently diagnosed with strep pharyngitis. No reports of fever but reports body aches and chills. No reports of cough, nasal congestion, shortness of breath. She does reports mildly tender left ear. Pt reports that she had one dose of metronidazole left from a prior BV infection that she took this am with no relief. Review of Systems Constitutional: Positive for chills and fatigue. HENT: Positive for ear pain (L > R) and sore throat. Eyes: Negative. Respiratory: Negative. Cardiovascular: Negative. Gastrointestinal: Negative. Objective BP 126/80 Pulse 73 Temp 36.9 ?C (98.4 ?F) Resp 16 Wt 132.1 kg (291 lb 3.6 oz) LMP 07/05/2024 (Within Days) SpO2 95% BMI 51.59 kg/m? PAST MEDICAL HISTORY Diagnosis Date Chlamydia 2013 and 2016 Depression Infertility, female Panic attacks depression PAST SURGICAL HISTORY Procedure Laterality Date DELIVERY ONLY 04/12/2017 PAST SURGICAL HISTORY OF oral (gum) surgery ALLERGIES Patient has no known allergies. MEDICATIONS venlafaxine ER (EFFEXOR XR) 150 mg 24 hr capsule Take 150 mg by mouth every morning. traZODone (DESYREL) 50 mg tablet Take 50 mg by mouth at bedtime as needed. pantoprazole DR (PROTONIX) 40 mg tablet Take 40 mg by mouth once daily. Brompheniramine-Pseudoe ph-DM (BROMFED DM) 2-30-10 mg/5 mL syrup Take 5 mL by mouth four times a day as needed. (Patient not taking: Reported on 09/18/2024) VRAYLAR 1.5 mg capsule Take 1 capsule by mouth every afternoon. (Patient not taking: Reported on 08/03/2024) venlafaxine (EFFEXOR) 75 mg tablet TAKE 1 TABLET BY MOUTH 2 TIMES A DAY IN THE MORNING AND EVENING (Patient not taking: Reported on 08/03/2024) furosemide (LASIX) 20 mg tablet Take 20 mg by mouth. (Patient not taking: Reported on 08/03/2024) metoprolol tartrate, short acting, (LOPRESSOR) 25 mg tablet TAKE 1/2 TABLET BY MOUTH 2 TIMES A DAY (Patient not taking: Reported on 09/18/2024) SPRINTEC 0.25-35 mg-mcg per tablet (Patient not taking: Reported on 08/03/2024) omeprazole (PRILOSEC) 20 mg capsule Take 20 mg by mouth once daily. (Patient not taking: Reported on 08/03/2024) busPIRone (BUSPAR) 10 mg tablet (Patient not taking: Reported on 08/03/2024) citalopram (CELEXA) 40 mg tablet (Patient not taking: Reported on 08/03/2024) oxyCODONE-acetaminophen (PERCOCET) 5-325 mg tablet (Patient not taking: Reported on 05/11/2022) labetalol (TRANDATE) 100 mg tablet (Patient not taking: Reported on 05/11/2022) ibuprofen (MOTRIN) 600 mg tablet (Patient not taking: Reported on 05/11/2022) ferrous sulfate (IRON ORAL) Take by mouth. (Patient not taking: Reported on 08/03/2024) docusate sodium (COLACE ORAL) Take by mouth. (Patient not taking: Reported on 05/11/2022) Bibexobn-Ew-Juu-Fe-FA ( VITAMIN) tab Take 1 tablet by mouth. (Patient not taking: Reported on 05/11/2022) escitalopram oxalate (LEXAPRO) 20 mg tablet Take 1 tablet by mouth once daily. (Patient not taking: Reported on 10/07/2021 ) FAMILY HISTORY Problem Relation Age of Onset Allergies Mother Anxiety disorder Mother other (brain tumor benign) Father other (Depression, anxiety , panic attacks) Father Hypertension Father No Known Problems Sister No Known Problems Sister No Known Problems Brother No Known Problems Brother No Known Problems Brother Hypertension Maternal Grandmother Lipids Maternal Grandmother other (Depression) Maternal Grandmother Breast Cancer Maternal Grandmother Asthma Maternal Grandfather COPD Maternal Grandfather Heart Paternal Grandmother COPD Paternal Grandfather Liver Disease Paternal Grandfather No Known Problems Daughter Social History Tobacco Use Smoking status: Never Smokeless tobacco: Never Vaping Use Vaping status: Never Used Substance Use Topics Alcohol use: No Drug use: No Physical Exam Constitutional: General: She is awake. HENT: Head: Normocephalic. Right Ear: Hearing and tympanic membrane normal. Left Ear: Hearing and tympanic membrane normal. Nose: Nose normal. Mouth/Throat: Pharynx: Pharyngeal swelling and posterior oropharyngeal erythema present. Tonsils: Tonsillar exudate (mild, predominately on R tonsil) present. Eyes: Conjunctiva/sclera: Conjunctivae normal. Cardiovas (more content not included)... Normal [facility] STREP A MOLECULAR (POC)on Procedural Control Valid [facility] Strep A (POCT) Negative Negative [facility] Visit Reporton 0 09-18-2024 Urgent Care Visit Report [facility] [address], [address] [place] [address] OFFICE VISIT Date of Service: 09/18/24 MR#: [id number] Acct: [id number] Name: CEDRIC HOPE Rep #: [id number] : 1995 Provider: TESSIE Bajwa Age/Sex: 29/F Location[place] [facility] [place] Status: Signed Intake Vital Signs 09/14/24 07:28 09/18/24 13:01 Height 5 ft 4 in 5 ft 4 in BP 98/72 Blood Pressure Location Lt brachial Position Sitting Respiration 16 Pulse 78 Pulse Source Monitor Temp 98.0 F Temp Source Oral Pulse Oximetry (%) 98 Oxygen Delivery Method room air Intake Visit Reasons: ST/SINUS PAIN/COUGH Chief Complaint: sore throat, sinus congestion, cough Psychology Physician Required: No Accompanied by: Self Is patient in pain?: Yes Pain scale (1-10): 6 Allergies No Known Allergies Allergy (Verified 09/18/24 13:00) Medications ???Medication ???Instructions ???Recorded ???Confirmed ???Type metoprolol tartrate 25 mg tablet 25 mg PO QDAY 01/04/24 09/18/24 Hi story pantoprazole 40 mg tablet,delayed 40 mg PO DAILY #30 tabs 02/02/24 09/18/24 Rx release levonorgestrel (Mirena) 1 device intrauterine ONCE 5 09/18/24 History trazodone 50 mg tablet 50 mg PO QHS PRN insomnia #90 tabs 09/14/24 09/18/24 Rx venlafaxine 150 mg 150 mg PO QAM #90 caps 09/14/24 Rx capsule,extended release 24 hr amoxicillin 500 mg tablet 500 mg PO TID #30 tabs 09/18/24 Rx fluconazole 200 mg tablet 200 mg PO DAILY #1 TAB 09/18/24 Rx PFSH Medical History Ulcer of gingiva Depression Anxiety Diabetes Anemia Back pain Gastric reflux Non-smoker CPAP (continuous positive airway pressure) dependence Hypertension Chest pain hypertension History of EKG delivery delivered depression Lab test positive for detection of COVID-19 virus LUIS (obstructive sleep apnea) Infertility Panic attacks Bipolar 1 disorder Asthma Hemorrhoids Surgical History S/P laparoscopic cholecystectomy H/O oral surgery Hx of section Family History Father Brain tumor (benign) Depression CAD (coronary artery disease) Grandmother Hypertension Hyperlipemia Depression Mother Allergies Grandfather Asthma COPD (chronic obstructive pulmonary disease) Social History household members: family current occupational status: employed 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 No complaints of fever, chills, myalgias, fatigue, runny nose, or nausea/vomiting/diarrhe a. No complaints of chest pain/shortness of breath/dyspnea on exertion. Daughter recently diagnosed with streptococcal pharyngitis, therefore requesting to be screened for the same; declining all other POC screening. Non-smoker. No other associated symptoms and no other alleviating/aggravating factors. ROS Const Constitutional: No other (as above) Exam Const General: cooperative, healthy appearing and no acute distress Nutritional Appearance: average body habitus Orientation: alert, awake and oriented x3 HENMT Head: normal to inspection Ears: hearing grossly normal bilaterally, external ears normal, TM's normal bilaterally and EAC's normal Nose: external nose normal, nares normal, septum normal and no nasal discharge Face and sinus: normal facial exam, bilateral maxillary sinus palpable tender (with bilateral maxillary fullness to palpation) and face symmetric Mouth: oral mucosae normal, lip normal, tongue normal and oropharynx normal Throat: posterior oropharynx normal, tonsils erythema with right tonsillar exudate and no hypertrophy, uvula midline and postnasal drainage (Purulent) Eyes General: appearance normal, both eyes and all related structures Neck Neck: normal visual inspection, full ROM, no meningeal signs, supple and lymphadenopathy (Bilateral anterior cervical lymph node swelling/tender to palpation) Neck mass: No Thyroid: thyroid normal Chest Chest palpation inspecti (more content not included)... Normal [facility] MR/BMS.Fredis 09-14-2024 MR/BMS. [address], [address] [place] [address] OFFICE VISIT Date of Service: 09/14/24 MR#: [id number] Acct: [id number] Name: CEDRIC HOPE Rep #: [id number] : 1995 Provider: JANEL jaffe Age/Sex: 29/F Location[place] [facility] [place] Status: Signed Intake Vital Signs 08/20/24 08:49 09/14/24 07:28 Height 5 ft 4 in 5 ft 4 in Weight: 290 lb 6 oz BMI 49.8 BP 130/75 H BP Intake Visit Reasons: follow up Allergies No Known Allergies Allergy (Verified 08/20/24 08:47) PFSH Medical History Ulcer of gingiva Depression Anxiety Diabetes Anemia Back pain Gastric reflux Non-smoker CPAP (continuous positive airway pressure) dependence Hypertension Chest pain hypertension History of EKG delivery delivered depression Lab test positive for detection of COVID-19 virus LUIS (obstructive sleep apnea) Infertility Panic attacks Bipolar 1 disorder Asthma Hemorrhoids Surgical History S/P laparoscopic cholecystectomy H/O oral surgery Hx of section Family History Father Brain tumor (benign) Depression CAD (coronary artery disease) Grandmother Hypertension Hyperlipemia Depression Mother Allergies Grandfather Asthma COPD (chronic obstructive pulmonary disease) Social History household members: family current occupational status: employed 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 Patient reports she has been doing well. Does feel anxiety has been well controlled. Does have episodes of increased depression and will have crying spells but this is infrequent. 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 Has been working 3 days during the week and every other weekend at her second job. Does feel depression less than half the time. Denies SI/HI. Anxiety is much less than half the time. Is feeling comfortable at current dose of medication. Denies any difficulties falling asleep or staying asleep with trazodone. Does feel she is not always getting the amount of sleep she needs but is working 2 jobs and this contributes. Has been had a decrease in appetite. Has been working on increasing water intake. Eats 1 normal meal per day and sometimes snacking. Has been continuing to exercise 1-2 times per week. Reports he is not weighing 287. This tele-medicine visit was performed via audio/video technology. Previous similar episode: Yes Age of first onset of symptoms: 11-20 years Review of Systems Constitutional Reports: change in weight (has lost 30 pounds ); Denies: fever(s), chills or fatigue Eyes Denies: change in vision or blurry vision Ears, Nose, Mouth, Throat Denies: throat pain or neck pain Cardiovascular Reports: dyspnea; Denies: chest pain or palpitations Respiratory Reports: dyspnea; Denies: wheezing Gastrointestinal Reports: heartburn and bloating; Denies: abdominal pain, nausea, vomiting, diarrhea or constipation Genitourinary Denies: dysuria, urinary frequency or urinary urgency Musculoskeletal Reports: back pain; Denies: neck pain Integumentary/Breast Denies: rash, pruritus or erythema Neurological Reports: headache(s) Psychiatric Reports: anxiety and hopelessness; Denies: mood swings, panic attacks, change in sleep pattern, loss of interest, irritability, paranoia, memory loss, difficulty concentrating, visual hallucinations, auditory hallucinations, suicidal ideation or homicidal ideation Endocrine Denies: fatigue Hematologic/Lymphatic Denies: easy bruising Allergic/Immunologic Denies: wheezing Exam Mental Status Exam - Psych Appearance casually dressed and adequately groomed Attitude cooperative and calm Activity/Motor Behavior MSE activity/motor behavior finding no adventitious movements and appropriate eye contact Speech regular rate, regular volume and regular prosody Mood euythmic Affect full range Thought Process linear, logical and coherent Thought Content no delusions and no hallucinations Suicidal Ideation none Homicidal Ideation none Attention impaired (per patient self report) Co (more content not included)... Normal [facility] CNOVon 09-06-2024 CNOV Office Visit (UCWSTR ) CEDRIC HOPE ([id number]) 1995 F Date Time Provider Department 09/06/24 5:00 PM NICOLASA DICKENS [facility] During your visit today, we recorded the following information about you: Temperature Pulse Respiration Blood pressure 98.2 degrees 98/minute 16/minute 132/90 Weight 135.4 kg Nicolasa Dickens APRN.[employer] 09/06/2024 5:26 PM Signed Subjective Cough Associated symptoms include chills and sore throat. Pertinent negatives include no shortness of breath. Pt is a 29 y/o female who presents with sore throat, congestion, cough, postnasal drip and chills x 3 days. No reports of fever. Cough is non-productive. Pt reports maxillary sinus pressure with fullness in ears L > R. Per pt, daughter was recently diagnosed with double ear infection. Pt also reports recently taking amoxicillin 3 weeks ago for similar symptoms. Review of Systems Constitutional: Positive for chills and malaise/fatigue. Negative for fever. HENT: Positive for congestion, sinus pain and sore throat. Negative for ear discharge. Eyes: Negative. Respiratory: Positive for cough and sputum production. Negative for shortness of breath. Cardiovascular: Negative. Gastrointestinal: Negative for abdominal pain, diarrhea, nausea and vomiting. Genitourinary: Negative. Musculoskeletal: Negative. Neurological: Negative. BP 132/90 Pulse 98 Temp 36.8 ?C (98.2 ?F) (Left Tympanic) Resp 16 Wt 135.4 kg (298 lb 8.1 oz) LMP 07/05/2024 (Within Days) SpO2 99% BMI 52.88 kg/m? PAST MEDICAL HISTORY Diagnosis Date Chlamydia 2013 and 2016 Depression Infertility, female Panic attacks depression PAST SURGICAL HISTORY Procedure Laterality Date DELIVERY ONLY 04/12/2017 PAST SURGICAL HISTORY OF oral (gum) surgery ALLERGIES Patient has no known allergies. MEDICATIONS venlafaxine ER (EFFEXOR XR) 150 mg 24 hr capsule Take 150 mg by mouth every morning. traZODone (DESYREL) 50 mg tablet Take 50 mg by mouth at bedtime as needed. Brompheniramine-Pseudoe ph-DM (BROMFED DM) 2-30-10 mg/5 mL syrup Take 5 mL by mouth four times a day as needed. (Patient not taking: Reported on 09/06/2024) VRAYLAR 1.5 mg capsule Take 1 capsule by mouth every afternoon. (Patient not taking: Reported on 08/03/2024) venlafaxine (EFFEXOR) 75 mg tablet TAKE 1 TABLET BY MOUTH 2 TIMES A DAY IN THE MORNING AND EVENING (Patient not taking: Reported on 08/03/2024) pantoprazole DR (PROTONIX) 40 mg tablet Take 40 mg by mouth once daily. furosemide (LASIX) 20 mg tablet Take 20 mg by mouth. (Patient not taking: Reported on 08/03/2024) metoprolol tartrate, short acting, (LOPRESSOR) 25 mg tablet TAKE 1/2 TABLET BY MOUTH 2 TIMES A DAY SPRINTEC 0.25-35 mg-mcg per tablet (Patient not taking: Reported on 08/03/2024) omeprazole (PRILOSEC) 20 mg capsule Take 20 mg by mouth once daily. (Patient not taking: Reported on 08/03/2024) busPIRone (BUSPAR) 10 mg tablet (Patient not taking: Reported on 08/03/2024) citalopram (CELEXA) 40 mg tablet (Patient not taking: Reported on 08/03/2024) oxyCODONE-acetaminophen (PERCOCET) 5-325 mg tablet (Patient not taking: Reported on 05/11/2022) labetalol (TRANDATE) 100 mg tablet (Patient not taking: Reported on 05/11/2022) ibuprofen (MOTRIN) 600 mg tablet (Patient not taking: Reported on 05/11/2022) ferrous sulfate (IRON ORAL) Take by mouth. (Patient not taking: Reported on 08/03/2024) docusate sodium (COLACE ORAL) Take by mouth. (Patient not taking: Reported on 05/11/2022) Rrguztpr-Te-Eld-Fe-FA ( VITAMIN) tab Take 1 tablet by mouth. (Patient not taking: Reported on 05/11/2022) escitalopram oxalate (LEXAPRO) 20 mg tablet Take 1 tablet by mouth once daily. (Patient not taking: Reported on 10/07/2021 ) FAMILY HISTORY Problem Relation Age of Onset Allergies Mother Anxiety disorder Mother other (brain tumor benign) Father other (Depression, anxiety , panic attacks) Father Hypertension Father No Known Problems Sister No Known Problems Sister No Known Problems Brother No Known Problems Brother No Known Problems Brother Hypertension Maternal Grandmother Lipids Maternal Grandmother other (Depression) Maternal Grandmother Breast Cancer Maternal Grandmother Asthma Maternal Grandfather COPD Maternal Grandfather Heart Paternal Grandmother COPD Paternal Grandfather Liver Disease Paternal Grandfather No Known Problems Daughter Social History Tobacco Use Smoking status: Never Smokeless tobacco: Never Vaping Use Vaping status: Never Used Substance Use Topics Alcohol use: No Drug use: No Objective Physical Exam Constitutional: General: She is awake. HENT: Head: Normocephalic. Right Ear: Hearing and tympanic membrane normal. Left Ear: Hearing and tympanic membrane normal. Nose: Congestion present. Right Sinus: Maxillary si (more content not included)... Normal [facility] Genital Culture Comprehensiv vania 08-23-2024 VAC Reason for Exam: vaginal irritation Normal vaginal hesham isolated. No yeast, Gardnerella, Neisseria or beta-hemolytic Streptococcus isolated. Normal [facility] Comment on above: Performed By: #### L 100.0100, L501.4020, L500.2500 #### [facility] [address] [place], [address] Chlamydia/GC VINOD aptimaon CHLAMY,NUC ACID Negative Normal Negative [facility] Comment on above: Performed By: #### L 100.0100, L501.4020, L500.2500 #### [facility] [address] [place], [address] GC BY NUC ACID Negative Normal Negative [facility] Comment on above: Result Comment: Perf ormed at: =G - [facility] [address] [id number] Occupational Therapy Specialist: Tanika Boyd MD, Phone: [phone] Performed By: #### L 100.0100, L501.4020, L500.2500 #### [facility] [address] [place], [address] Gram Stainon 08-20-2024 GS Reason for Exam: vaginal irritation Gram Stain 1+ Epithelial cells 3+ Gram positive rods No Gram negative diplococci Score = 1 Interpretation: 0-3 Normal, 4-6 Intermediate, 7-10 Positive BV Normal [facility] Comment on above: Performed By: #### L 100.0100, L501.4020, L500.2500 #### [facility] [address] [place], [address] Telecommunications Professional Office Visit Reporton 08-20-2024 Telecommunications Professional Office Visit Report [facility] [address], [address] [place] [address] OFFICE VISIT Date of Service: 08/20/24 MR#: [id number] Acct: [id number] Name: CEDRIC HOPE Rep #: [id number] : 1995 Provider: Dr. Gabriela Bob DO Age/Sex: 29/F [place] [facility] [place] Signed Intake Vital Signs 08/06/24 08:30 08/20/24 08:49 Height 5 ft 4 in 5 ft 4 in Weight: 294 lb 4 oz 290 lb 6 oz BMI 50.5 49.8 BP 135/80 H 130/75 H Intake Visit Reasons: MIRENA IUD INSERTION Psychology Physician Required: No Is patient in pain?: No Allergies No Known Allergies Allergy (Verified 08/20/24 08:47) Medications ???Medication ???Instructions ???Recorded ???Confirmed ???Type metoprolol tartrate 25 mg tablet 25 mg PO QDAY 01/04/24 08/20/24 Hi story pantoprazole 40 mg tablet,delayed 40 mg PO DAILY #30 tabs 02/02/24 08/20/24 Rx release trazodone 50 mg tablet 50 mg PO QHS PRN insomnia #90 tabs 06/01/24 08/20/24 Rx venlafaxine 150 mg 150 mg PO QAM #90 caps 06/01/24 Rx capsule,extended release 24 hr levonorgestrel (Mirena) 1 device intrauterine ONCE 5 08/20/24 History Post menopausal: No Patient : No : No PFSH PFSH Medical History Ulcer of gingiva Depression Anxiety Diabetes Anemia Back pain Gastric reflux Non-smoker CPAP (continuous positive airway pressure) dependence Hypertension Chest pain hypertension History of EKG delivery delivered depression Lab test positive for detection of COVID-19 virus LUIS (obstructive sleep apnea) Infertility Panic attacks Bipolar 1 disorder Asthma Hemorrhoids Surgical History S/P laparoscopic cholecystectomy H/O oral surgery Hx of section Family History Father Brain tumor (benign) Depression CAD (coronary artery disease) Grandmother Hypertension Hyperlipemia Depression Mother Allergies Grandfather Asthma COPD (chronic obstructive pulmonary disease) Social History household members: family current occupational status: employed 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 Date Name GA/Weeks Outcome Route Bth Weight Infant Gen Labor [facility]est[facility] FOB 04/12/17 Sondra 40 live - full term 8lbs 14oz Female 23 hours epidural W CH RR Rui 10/01/21 Jelani 39 live - full term Male [facility] Ma rcanthony Delivery Date: 04/12/17 Last Updated by: Christine Ascencio AoD- failed induction; thick meconium- initially clear thick MSF by delivery Delivery Date: 10/01/21 Last Updated by: Leslie Gibbons RLTCS [id number] HPI MIRENA IUD INSERTION Details: CEDRIC HOPE is a 29 year old who presents for IUD insertion. She was recently with a new partner and used condoms. Her test today is negative. She was also recently treated with an antibiotic and then a yeast infection. ROS Const ROS Unobtainable: All systems reviewed are unremarkable except as noted in H Resp Resp: Reports system reviewed and no additional complaints, except as documented; Denies cough GI GI: Reports as per HPI Psych Psych: Reports system reviewed and no additional complaints, except as documented Exam Const General: cooperative, healthy appearing, comfortable and no acute distress Resp Effort Inspection: normal respiratory effort General: bimanual renal exam normal bilaterally External Female Exam: normal appearance of the urethra Urethra: normal appearance of the urethra Speculum Exam - Vagina: normal appearance of the vagina Speculum Exam - Cervix: normal appearance of the cervix Bimanual Exam- Adnexa, other: normal adnexae and normal Pelvic Support: normal Other: see IUD insertion procedure. Skin General: no rashes or lesions noted Psych Appearance: grossly normal Speech and Movement: speech and movement normal Office Procedures IUD Insertion IUD GC/Chlamydia:: done Test: Yes Negative Consent Signed: Yes Time out checklist: patient IUD: Yes Mirena IUD inserted Time out t (more content not included)... Normal [facility] Genital Culture Comprehensiv vania 08-09-2024 VAC Reason for Exam: scr een Normal vaginal hesham isolated. No yeast, Gardnerella, Neisseria or beta-hemolytic Streptococcus isolated. Normal [facility] Comment on above: Performed By: #### L 100.0100, L501.4020, L500.2500 #### [facility] [address] [place], [address] Chlamydia/GC VINOD aptimaon CHLAMY,NUC ACID Negative Normal Negative [facility] Comment on above: Performed By: #### L 100.0100, L501.4020, L500.2500 #### [facility] [address] [place], [address] GC BY NUC ACID Negative Normal Negative [facility] Comment on above: Result Comment: Perf ormed at: =G - [facility] [address] [id number] Occupational Therapy Specialist: Tanika Boyd MD, Phone: [phone] Performed By: #### L 100.0100, L501.4020, L500.2500 #### [facility] [address] [place], [address] CBC-Complete Blood Cnt No Di ffon 08-06-2024 Erythrocyte distribution width (RBC) [Ratio] 16.1 % High 11.6-14.6 [facility] Comment on above: Performed By: #### L 501.9985, L100.0100 #### [facility] [address] [place], [address] Hematocrit (Bld) [Volume fraction] 38.3 % Normal 37-47 [facility] Comment on above: Performed By: #### L 501.9985, L100.0100 #### [facility] [address] [place], [address] Hemoglobin (Bld) [Mass/Vol] 11.6 g/dL Low 12.0-15.0 [facility] Comment on above: Performed By: #### L 501.9985, L100.0100 #### [facility] [address] [place], [address] MCH (RBC) [Entitic mass] 24.5 pg Low 27.0-32.0 [facility] Comment on above: Performed By: #### L 501.9985, L100.0100 #### [facility] [address] [place], [address] MCHC (RBC) [Mass/Vol] 30.3 g/dL Low 32-36 [facility] Comment on above: Performed By: #### L 501.9985, L100.0100 #### [facility] [address] [place], [address] MCV (RBC) [Entitic vol] 80.8 fL Low 81-99 [facility] Comment on above: Performed By: #### L 501.9985, L100.0100 #### [facility] [address] [place], [address] Platelet mean volume (Bld) [Entitic vol] 11.0 fL Normal 6.2-12.0 [facility] Comment on above: Performed By: #### L 501.9985, L100.0100 #### [facility] [address] [place], [address] Platelets (Bld) [#/Vol] 298 10*3/uL Normal 150-450 [facility] Comment on above: Performed By: #### L 501.9985, L100.0100 #### [facility] [address] [place], [address] RBC (Bld) [#/Vol] 4.74 10*6/uL Normal 4.2-5.4 [facility] Comment on above: Performed By: #### L 501.9985, L100.0100 #### [facility] [address] [place], [address] RDW SD 47.1 fl High 35.1-43.9 [facility] Comment on above: Performed By: #### L 501.9985, L100.0100 #### [facility] [address] [place], [address] WBC (Bld) [#/Vol] 7.8 10*3/uL Normal 4.4-11.0 [facility] Comment on above: Performed By: #### L 501.9985, L100.0100 #### [facility] [address] [place], [address] Comprehensive Metabolic Prof coon 08-06-2024 Albumin [Mass/Vol] 3.5 g/dL Normal 3.2-5.0 [facility] Comment on above: Performed By: #### L 501.9985, L100.0100 #### [facility] [address] [place], [address] Albumin/Globulin [Mass ratio] 0.8 {ratio} Low 0.9-2.4 [facility] Comment on above: Performed By: #### L 501.9985, L100.0100 #### [facility] [address] [place], [address] ALK P 97 U/L Normal 45-117 [facility] Comment on above: Performed By: #### L 501.9985, L100.0100 #### [facility] [address] [place], [address] ALT [Catalytic activity/Vol] 31 U/L Normal 13-56 [facility] Comment on above: Performed By: #### L 501.9985, L100.0100 #### [facility] [address] [place], [address] AST [Catalytic activity/Vol] 20 U/L Normal 15-37 [facility] Comment on above: Performed By: #### L 501.9985, L100.0100 #### [facility] [address] [place], [address] Bilirubin [Mass/Vol] 0.40 mg/dL Normal 0.20-1.00 [facility] Comment on above: Result Comment: For patients on eltrombopag therapy, use of Dimension [place] TBIL is not recommended. Performed By: #### L 501.9985, L100.0100 #### [facility] [address] [place], [address] BUN/CRE 10.9 RATIO Normal 10-20 [facility] Comment on above: Performed By: #### L 501.9985, L100.0100 #### [facility] [address] [place], [address] CA,Total 9.0 mg/dL Normal 8.5-10.1 [facility] Comment on above: Performed By: #### L 501.9985, L100.0100 #### [facility] [address] [place], [address] Chloride [Moles/Vol] 103 mmol/L Normal 98-107 [facility] Comment on above: Performed By: #### L 501.9985, L100.0100 #### [facility] [address] [place], [address] CO2 [Moles/Vol] 25.0 mmol/L Normal 21.0-32.0 [facility] Comment on above: Performed By: #### L 501.9985, L100.0100 #### [facility] [address] [place], [address] Creatinine [Mass/Vol] 0.82 mg/dL Normal 0.55-1.02 [facility] Comment on above: Result Comment: The validity of the calculated GFR GFRAA in patients over 70 years has not been determined. Clinical correlation is essential. Performed By: #### L 501.9985, L100.0100 #### [facility] [facility] [address] [place], [address] EST GFR - AA 107 mL/min Normal >60 [facility] Comment on above: Result Comment: Afri can Swedish GFR Calc Performed By: #### L 501.9985, L100.0100 #### [facility] [address] [place], [address] GAP 8 Normal 5-15 [facility] Comment on above: Performed By: #### L 501.9985, L100.0100 #### [facility] [address] [place], [address] GFR/1.73 sq M.predicted among non-blacks MDRD (S/P/Bld) [Vol rate/Area] 88 mL/min/{1.73_m2} Normal >60 [facility] Comment on above: Result Comment: Non- GFR Calc Performed By: #### L 501.9985, L100.0100 #### [facility] [address] [place], [address] Globulin (S) [Mass/Vol] 4.5 g/dL High 2.2-4.2 [facility] Comment on above: Performed By: #### L 501.9985, L100.0100 #### [facility] [address] [place], [address] Glucose [Mass/Vol] 140 mg/dL High 74-106 [facility] Comment on above: Result Comment: Fast ing Glucose result greater than or equal to 126 mg/dL suggests DIABETES MELLITUS per A.D.A. criteria. Performed By: #### L 501.9985, L100.0100 #### [facility] [address] [place], [address] Potassium [Moles/Vol] 3.8 mmol/L Normal 3.5-5.1 [facility] Comment on above: Performed By: #### L 501.9985, L100.0100 #### [facility] [address] [place], [address] Sodium [Moles/Vol] 136 mmol/L Normal 136-145 [facility] Comment on above: Performed By: #### L 501.9985, L100.0100 #### [facility] [address] [place], [address] T PROT 8.0 g/dL Normal 6.4-8.2 [facility] Comment on above: Performed By: #### L 501.9985, L100.0100 #### [facility] [address] [place], [address] Urea nitrogen [Mass/Vol] 9 mg/dL Normal 7-18 [facility] Comment on above: Performed By: #### L 501.9985, L100.0100 #### [facility] [address] [place], [address] Gram Stainon 08-06-2024 GS Reason for Exam: scr een Gram Stain 4+ Gram positive rods No Gram negative diplococci 1+ Epithelial cells Score = 0 Interpretation: 0-3 Normal, 4-6 Intermediate, 7-10 Positive BV Normal [facility] Comment on above: Performed By: #### L 100.0100, L501.4020, L500.2500 #### [facility] [address] [place], [address] Lipid Profileon 08-06-2024 Cholesterol [Mass/Vol] 163 mg/dL Normal 200 [facility] Comment on above: Result Comment: <200 mg/dL Desirable 200-240 mg/dL Borderline >240 mg/dL High Risk Performed By: #### L 501.9985, L100.0100 #### [facility] [address] [place], [address] Cholesterol in HDL [Mass/Vol] 47 mg/dL Normal [facility] Comment on above: Result Comment: The drugs N-Acetylcysteine and Metamizole may falsely depress this assay. Reference Range HDL <40 mg/dL Low HDL Cholesterol HDL >or= 60 mg/dL High HDL Cholesterol Performed By: #### L 501.9985, L100.0100 #### [facility] [address] [place], [address] Cholesterol in LDL [Mass/Vol] 97 mg/dL Normal 0-130 [facility] Comment on above: Performed By: #### L 501.9985, L100.0100 #### [facility] [address] [place], [address] Cholesterol in VLDL [Mass/Vol] 19 mg/dL Normal 5-40 [facility] Comment on above: Performed By: #### L 501.9985, L100.0100 #### [facility] [address] [place], [address] Triglyceride [Mass/Vol] 97 mg/dL Normal [facility] Comment on above: Result Comment: The drugs N-Acetylcysteine and Metamizole may falsely depress this assay. Serum Triglycerides Reference Interval Normal <150 mg/dL Borderline high 150 - 199 mg/dL High 200 - 499 mg/dL Very High > or = 500 mg/dL Performed By: #### L 501.9985, L100.0100 #### [facility] [address] [place], [address] Telecommunications Professional Office Visit Reporton 08-06-2024 Telecommunications Professional Office Visit Report [facility] [address], [address] [place] [address] OFFICE VISIT Date of Service: 08/06/24 MR#: [id number] Acct: [id number] Name: CEDRIC HOPE Rep #: [id number] : 1995 Provider: Dr. Gabriela Bob, Age/Sex: 29/F [place] [facility] [place]: Signed Intake Vital Signs 07/20/24 15:28 08/01/24 09:16 08/06/24 08:30 Height 5 ft 4 in 5 ft 4 in 5 ft 4 in Weight: 294 lb 4 oz BMI 50.5 BP 140/77 H 135/80 H Blood Pressure Location Lt brachial Position Sitting Respiration 12 Pulse 85 Pulse Source Monitor Intake Visit Reasons: Discuss control options Psychology Physician Required: No Is patient in pain?: No Allergies No Known Allergies Allergy (Verified 08/06/24 08:27) Medications ???Medication ???Instructions ???Recorded ???Confirmed ???Type metoprolol tartrate 25 mg tablet 25 mg PO QDAY 01/04/24 08/06/24 History pantoprazole 40 mg tablet,delayed 40 mg PO DAILY #30 tabs 02/02/24 08/06/24 Rx release trazodone 50 mg tablet 50 mg PO QHS PRN insomnia #90 tabs 06/01/24 08/06/24 Rx venlafaxine 150 mg 150 mg PO QAM #90 caps 06/01/24 08/06/24 Rx capsule,extended release 24 hr Post menopausal: No Patient : No : No PFSH Medical History (Updated 08/06/24 @ 08:[address] Gabriela Rachel, DO) Ulcer of gingiva Depression Anxiety Diabetes Anemia Back pain Gastric reflux Non-smoker CPAP (continuous positive airway pressure) dependence Hypertension Chest pain hypertension History of EKG delivery delivered depression Lab test positive for detection of COVID-19 virus LUIS (obstructive sleep apnea) Infertility Panic attacks Bipolar 1 disorder Asthma Hemorrhoids Surgical History S/P laparoscopic cholecystectomy H/O oral surgery Hx of section Family History Father Brain tumor (benign) Depression CAD (coronary artery disease) Grandmother Hypertension Hyperlipemia Depression Mother Allergies Grandfather Asthma COPD (chronic obstructive pulmonary disease) Social History (Updated 08/06/24 @ 08:32 by Alecia Roberson) household members: family current occupational status: employed 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 She stopped her ocps due to tachycardia. her left her and she had sex with someone she is not in a relationship with. She is interested in an IUD. also interested in weight management. History 2 Elective abortions Hx Para 2 Spontaneous abortions Hx # Term Pregnancies Ectopic pregnancies Hx # Pregnancies Multiple births # of living children 2 Past Pregnancies Del. Date Name GA/Weeks Outcome Route Bth Weight Infant Gen Labor Lgth Anesthesia Del Locatn Provider FOB 04/12/17 Sondra 40 live - full term 8lbs 14oz Female 23 hours epidural W CH RR Rui 10/01/21 Jelani 39 live - full term Male [facility] Ma rcanthony Delivery Date: 04/12/17 Last Updated by: Christine Ascencio AoD- failed induction; thick meconium- initially clear thick MSF by delivery Delivery Date: 10/01/21 Last Updated by: Leslie Gibbons RLTCS GDMA2 ROS Const ROS Unobtainable: All systems reviewed are unremarkable except as noted in H Resp Resp: Reports system reviewed and no additional complaints, except as documented; Denies cough GI GI: Reports as per HPI Psych Psych: Reports system reviewed and no additional complaints, except as documented Exam Const General: cooperative, healthy appearing, comfortable and no acute distress Resp Effort Inspection: normal respiratory effort General: bimanual renal exam normal bilaterally External Female Exam: normal appearance of the urethra Urethra: normal appearance of the urethra Speculum Exam - Vagina: normal appearance of the vagina Speculum Exam - Cervix: normal appearance of the cervix Bimanual Exam- Adnexa, other: normal adnexae and normal Pelvic Support: normal Skin General: no rashes or lesions noted Psych Appearance: grossly normal Speech and Movement: speech and movement normal Coding Level of Care Code Off vis,est,level 4 Diagnoses Screen for STD (sexually transmitted disease) Z11.3 Contra (more content not included)... Normal [facility] Thyroid Stim Hormone (TSH)on 08-06-2024 TSH 1.950 uIU/mL Normal 0.358-3.740 [facility] Comment on above: Performed By: #### L 501.9985, L100.0100 #### [facility] [address] [place], [address] Vitamin D,25 Hydroxyon 08-06 Vitamin D 25-OH 60.0 ng/mL Normal [facility] Comment on above: Result Comment: Genie min D 25(OH) Status Range Deficiency <20 ng/mL (50nmol/L) Insufficiency 20 - 30 ng/mL (50 - 75 nmol/L) Sufficiency 30 - 100 ng/mL (75 - 250 nmol/L) Toxicity >100 ng/mL (>250 nmol/L) Performed By: #### L 501.9985, L100.0100 #### [facility] [address] [place], [address] [facility] CEDRIC HOPE ([id number]) 1995 F Date Time Provider Department 08/05/24 VAISHALI JUDGE [facility] During your visit today, we recorded the following information about you: Vaishali Judge APRN.[employer] 08/05/2024 8:15 AM Signed Please advise of above. Allergies As of Date: 08/05/2024 (No Known Allergies) Date Reviewed: 08/03/2024 Reviewed by: Moraima Skelton MA - Fully Assessed Reason for Visit: Results [95] Prescriptions as of 08/05/2024 - budesonide (RHINOCORT AQ) 32 mcg/actuation nasal spray Use 2 Sprays in each nostril once daily for 14 days. Rinse mouth after use. - Brompheniramine-Pseudoe ph-DM (BROMFED DM) 2-30-10 mg/5 mL syrup Take 5 mL by mouth four times a day as needed. - VRAYLAR 1.5 mg capsule Take 1 capsule by mouth every afternoon. - venlafaxine ER (EFFEXOR XR) 150 mg 24 hr capsule Take 150 mg by mouth every morning. - venlafaxine (EFFEXOR) 75 mg tablet TAKE 1 TABLET BY MOUTH 2 TIMES A DAY IN THE MORNING AND EVENING - traZODone (DESYREL) 50 mg tablet Take 50 mg by mouth at bedtime as needed. - pantoprazole DR (PROTONIX) 40 mg tablet Take 40 mg by mouth once daily. - furosemide (LASIX) 20 mg tablet Take 20 mg by mouth. - metoprolol tartrate, short acting, (LOPRESSOR) 25 mg tablet TAKE 1/2 TABLET BY MOUTH 2 TIMES A DAY - SPRINTEC 0.25-35 mg-mcg per tablet - omeprazole (PRILOSEC) 20 mg capsule Take 20 mg by mouth once daily. - busPIRone (BUSPAR) 10 mg tablet - citalopram (CELEXA) 40 mg tablet - oxyCODONE-acetaminophen (PERCOCET) 5-325 mg tablet - labetalol (TRANDATE) 100 mg tablet - ibuprofen (MOTRIN) 600 mg tablet - ferrous sulfate (IRON ORAL) Take by mouth. - docusate sodium (COLACE ORAL) Take by mouth. - Wteitnqc-Uh-Qgp-Fe-FA ( VITAMIN) tab Take 1 tablet by mouth. - escitalopram oxalate (LEXAPRO) 20 mg tablet Take 1 tablet by mouth once daily. Problem List As Of Date 08/05/2024 Noted Resolved control counseling [Z30.09] 09/11/2013 09/28/2016 Sore throat [J02.9] 02/03/2014 09/28/2016 Odynophagia [R13.10] 02/03/2014 Spotting in [O26.859] 08/26/2016 09/28/2016 History of depression [Z86.59] 08/26/2016 Family history of defects [Z82.79] 08/26/2016 Obesity during [O99.210] 08/31/2016 Supervision of high risk due to socia*08/31/2016 04/27/2017 Chlamydia infection affecting [O98.81*10/21/2016 04/27/2017 with history of section, ant*02/12/2021 associated with use of clomiphene, cu*02/12/2021 Nausea and vomiting during [O21.9] 02/12/2021 Patient request for diagnostic testing [Z01.89] 02/12/2021 GBS bacteriuria [R82.71] 02/24/2021 Encounter Status:Closed by [facility] CEDRIC H[facility] ([id number]) 1995 F Date Time Provider Department 08/05/24 VAISHALI JUDGE [facility] During your visit today, we recorded the following information about you: Vaishali Judge APRN.[employer]NER 08/05/2024 8:16 AM Signed Please advise patient of prior telephone encounter, Which she has not seen (Think an error with routing initial message) Angelica Yadav LPN 08/05/2024 12:03 PM Signed Unable to reach patient. Mailbox full/ Please try again later. RAINE Isabel Melissa, MA 08/06/2024 8:01 AM Signed Patient given results and verbalized understanding of instructions given. Michelle Redman MA Allergies As of Date: 08/05/2024 (No Known Allergies) Date Reviewed: 08/03/2024 Reviewed by: Moraima Skelton MA - Fully Assessed Reason for Visit: Results [95] Prescriptions as of 08/06/2024 - budesonide (RHINOCORT AQ) 32 mcg/actuation nasal spray Use 2 Sprays in each nostril once daily for 14 days. Rinse mouth after use. - Brompheniramine-Pseudoe ph-DM (BROMFED DM) 2-30-10 mg/5 mL syrup Take 5 mL by mouth four times a day as needed. - VRAYLAR 1.5 mg capsule Take 1 capsule by mouth every afternoon. - venlafaxine ER (EFFEXOR XR) 150 mg 24 hr capsule Take 150 mg by mouth every morning. - venlafaxine (EFFEXOR) 75 mg tablet TAKE 1 TABLET BY MOUTH 2 TIMES A DAY IN THE MORNING AND EVENING - traZODone (DESYREL) 50 mg tablet Take 50 mg by mouth at bedtime as needed. - pantoprazole DR (PROTONIX) 40 mg tablet Take 40 mg by mouth once daily. - furosemide (LASIX) 20 mg tablet Take 20 mg by mouth. - metoprolol tartrate, short acting, (LOPRESSOR) 25 mg tablet TAKE 1/2 TABLET BY MOUTH 2 TIMES A DAY - SPRINTEC 0.25-35 mg-mcg per tablet - omeprazole (PRILOSEC) 20 mg capsule Take 20 mg by mouth once daily. - busPIRone (BUSPAR) 10 mg tablet - citalopram (CELEXA) 40 mg tablet - oxyCODONE-acetaminophen (PERCOCET) 5-325 mg tablet - labetalol (TRANDATE) 100 mg tablet - ibuprofen (MOTRIN) 600 mg tablet - ferrous sulfate (IRON ORAL) Take by mouth. - docusate sodium (COLACE ORAL) Take by mouth. - Mmnlwxhp-Lh-Ekz-Fe-FA ( VITAMIN) tab Take 1 tablet by mouth. - escitalopram oxalate (LEXAPRO) 20 mg tablet Take 1 tablet by mouth once daily. Problem List As Of Date 08/05/2024 Noted Resolved control counseling [Z30.09] 09/11/2013 09/28/2016 Sore throat [J02.9] 02/03/2014 09/28/2016 Odynophagia [R13.10] 02/03/2014 Spotting in [O26.859] 08/26/2016 09/28/2016 History of depression [Z86.59] 08/26/2016 Family history of defects [Z82.79] 08/26/2016 Obesity during [O99.210] 08/31/2016 Supervision of high risk due to socia*08/31/2016 04/27/2017 Chlamydia infection affecting [O98.81*10/21/2016 04/27/2017 with history of section, ant*02/12/2021 associated with use of clomiphene, cu*02/12/2021 Nausea and vomiting during [O21.9] 02/12/2021 Patient request for diagnostic testing [Z01.89] 02/12/2021 GBS bacteriuria [R82.71] 02/24/2021 Encounter Status:Closed by MICHELLE REDMAN on 08/06/24 [facility] CNOVon 08-03-2024 CNOV Office Visit ([facility] ) CEDRIC HOPE ([id number]) 1995 F Date Time Provider Department 08/03/24 10:15 AM [facility] During your visit today, we recorded the following information about you: Temperature Pulse Respiration Blood pressure 98.4 degrees 91/minute 21/minute 132/78 Weight 133.9 kg Yury White APRN.[employer]NER 08/03/2024 11:06 AM Signed CC: Patient presents with: Cough: Sinus, congestion x 2 days HPI: Cedric Hope is a 29 year old female who presents to the office with complaint of head congestion, cough, nonproductive, and sore throat for a few days. Symptoms are worsening Associated symptoms includes body aches. Denies nausea, vomiting , and diarrhea. Treatments tried include nothing so far. with no relief of symptoms. Sick contacts: unknown. History of asthma, frequent episodes of bronchitis, chronic bronchitis, bronchiectasis or COPD: No Smoker: No Seasonal/environmental allergies: No The ROS is otherwise negative. The patient's pmh, medications, allergies, and past visits are reviewed. PHYSICAL EXAM: BP 132/78 Pulse 91 Temp 36.9 ?C (98.4 ?F) Resp 21 Wt 133.9 kg (295 lb 3.1 oz) LMP 07/05/2024 (Within Days) SpO2 100% BMI 52.29 kg/m? General appearance: alert, cooperative, pleasant, in no acute distress Head: Normocephalic Eyes: EOM's intact, conjunctiva pink and moist, no icterus, sclera white, non-injected Ears: Right ear: External ear/canal- Normal, TM - erythematous. Left ear: External ear/canal- Normal, TM - clear with good landmarks Oropharynx:moderate erythema, without exudates present, +2 uvula midline Neck: mild cervical adenopathy Heart: Negative. RRR without obvious murmur, gallop, or rubs. No ectopy. Lungs: clear to auscultation, without rales or wheeze, good air exchange PAST MEDICAL HISTORY Diagnosis Date Chlamydia 2013 and 2016 Depression Infertility, female Panic attacks depression PAST SURGICAL HISTORY Procedure Laterality Date DELIVERY ONLY 04/12/2017 PAST SURGICAL HISTORY OF oral (gum) surgery ALLERGIES Patient has no known allergies. MEDICATIONS fluticasone (FLONASE) 50 mcg/actuation nasal spray Use 2 Sprays in each nostril once daily. Rinse mouth after use. venlafaxine ER (EFFEXOR XR) 150 mg 24 hr capsule Take 150 mg by mouth every morning. traZODone (DESYREL) 50 mg tablet Take 50 mg by mouth at bedtime as needed. pantoprazole DR (PROTONIX) 40 mg tablet Take 40 mg by mouth once daily. metoprolol tartrate, short acting, (LOPRESSOR) 25 mg tablet TAKE 1/2 TABLET BY MOUTH 2 TIMES A DAY VRAYLAR 1.5 mg capsule Take 1 capsule by mouth every afternoon. (Patient not taking: Reported on 08/03/2024) venlafaxine (EFFEXOR) 75 mg tablet TAKE 1 TABLET BY MOUTH 2 TIMES A DAY IN THE MORNING AND EVENING (Patient not taking: Reported on 08/03/2024) furosemide (LASIX) 20 mg tablet Take 20 mg by mouth. (Patient not taking: Reported on 08/03/2024) SPRINTEC 0.25-35 mg-mcg per tablet (Patient not taking: Reported on 08/03/2024) omeprazole (PRILOSEC) 20 mg capsule Take 20 mg by mouth once daily. (Patient not taking: Reported on 08/03/2024) busPIRone (BUSPAR) 10 mg tablet (Patient not taking: Reported on 08/03/2024) citalopram (CELEXA) 40 mg tablet (Patient not taking: Reported on 08/03/2024) oxyCODONE-acetaminophen (PERCOCET) 5-325 mg tablet (Patient not taking: Reported on 05/11/2022) labetalol (TRANDATE) 100 mg tablet (Patient not taking: Reported on 05/11/2022) ibuprofen (MOTRIN) 600 mg tablet (Patient not taking: Reported on 05/11/2022) ferrous sulfate (IRON ORAL) Take by mouth. (Patient not taking: Reported on 08/03/2024) docusate sodium (COLACE ORAL) Take by mouth. (Patient not taking: Reported on 05/11/2022) Ppkxwckp-Bz-Vla-Fe-FA ( VITAMIN) tab Take 1 tablet by mouth. (Patient not taking: Reported on 05/11/2022) hydrOXYzine Pamoate 100 mg capsule (Patient not taking: Reported on 10/07/2021 ) escitalopram oxalate (LEXAPRO) 20 mg tablet Take 1 tablet by mouth once daily. (Patient not taking: Reported on 10/07/2021 ) FAMILY HISTORY Problem Relation Age of Onset Allergies Mother Anxiety disorder Mother other (brain tumor benign) Father other (Depression, anxiety , panic attacks) Father Hypertension Father No Known Problems Sister No Known Problems Sister No Known Problems Brother No Known Problems Brother No Known Problems Brother Hypertension Maternal Grandmother Lipids Maternal Grandmother other (Depression) Maternal Grandmother Breast Cancer Maternal Grandmother Asthma Maternal Grandfather COPD Maternal Grandfather Heart Paternal Grandmother COPD Paternal Grandfather Liver Disease Paternal Grandfather No Known Problems Daughter Social History Tobacco Use Smoking status: Never Smokeless tobacco: Never Vaping Use Vaping status: N (more content not included)... Normal [facility] COVID AND INFLUENZA A/B AND RSV PCR, ROUTINEon 08-03-2024 SARS-CoV-2 (COVID-19) RNA VINOD+probe Ql (Unsp spec) SARS-COV-2 (AGENT OF COVID-19) RNA: Not detected INFLUENZA A RNA: Not detected INFLUENZA B RNA: Not detected RESPIRATORY SYNCYTIAL VIRUS (RSV) RNA: Not detected Normal [facility] Comment on above: Performed By: #### 6 30-4 #### [facility] CLIA [id number] [address] [place] [address] [place] STREP A MOLECULAR (POC)on Procedural Control Valid [facility] Strep A (POCT) Negative Negative [facility] CNPNon 2024 CNPN Telephone ([facility]) CEDRIC HOPE ([id number]) 1995 F Date Time Provider Department 07/20/24 KATIE HENSON [facility] During your visit today, we recorded the following information about you: Katie Henson PA 2024 5:56 PM Signed Please contact patient and let her know urine culture reveals no UTI. Follow-up with PCP for persistent symptoms Deborah Keys MA 2024 7:25 PM Signed Patient has viewed all results on [employer]. Deborah Keys MA Allergies As of Date: 2024 (No Known Allergies) Date Reviewed: 07/19/2024 Reviewed by: Deborah Keys MA - Fully Assessed Reason for Visit: Results [95] Prescriptions as of 2024 - fluticasone (FLONASE) 50 mcg/actuation nasal spray Use 2 Sprays in each nostril once daily. Rinse mouth after use. - VRAYLAR 1.5 mg capsule Take 1 capsule by mouth every afternoon. - venlafaxine ER (EFFEXOR XR) 150 mg 24 hr capsule Take 150 mg by mouth every morning. - venlafaxine (EFFEXOR) 75 mg tablet TAKE 1 TABLET BY MOUTH 2 TIMES A DAY IN THE MORNING AND EVENING - traZODone (DESYREL) 50 mg tablet Take 50 mg by mouth at bedtime as needed. - pantoprazole DR (PROTONIX) 40 mg tablet Take 40 mg by mouth once daily. - furosemide (LASIX) 20 mg tablet Take 20 mg by mouth. - metoprolol tartrate, short acting, (LOPRESSOR) 25 mg tablet TAKE 1/2 TABLET BY MOUTH 2 TIMES A DAY - SPRINTEC 0.25-35 mg-mcg per tablet - omeprazole (PRILOSEC) 20 mg capsule Take 20 mg by mouth once daily. - busPIRone (BUSPAR) 10 mg tablet - citalopram (CELEXA) 40 mg tablet - oxyCODONE-acetaminophen (PERCOCET) 5-325 mg tablet - labetalol (TRANDATE) 100 mg tablet - ibuprofen (MOTRIN) 600 mg tablet - ferrous sulfate (IRON ORAL) Take by mouth. - docusate sodium (COLACE ORAL) Take by mouth. - Tqxgdrfv-Xa-Jiz-Fe-FA ( VITAMIN) tab Take 1 tablet by mouth. - hydrOXYzine Pamoate 100 mg capsule - escitalopram oxalate (LEXAPRO) 20 mg tablet Take 1 tablet by mouth once daily. Problem List As Of Date 2024 Noted Resolved control counseling [Z30.09] 09/11/2013 09/28/2016 Sore throat [J02.9] 02/03/2014 09/28/2016 Odynophagia [R13.10] 02/03/2014 Spotting in [O26.859] 08/26/2016 09/28/2016 History of depression [Z86.59] 08/26/2016 Family history of defects [Z82.79] 08/26/2016 Obesity during [O99.210] 08/31/2016 Supervision of high risk due to socia*08/31/2016 04/27/2017 Chlamydia infection affecting [O98.81*10/21/2016 04/27/2017 with history of section, ant*02/12/2021 associated with use of clomiphene, cu*02/12/2021 Nausea and vomiting during [O21.9] 02/12/2021 Patient request for diagnostic testing [Z01.89] 02/12/2021 GBS bacteriuria [R82.71] 02/24/2021 Encounter Status:Closed by DEBORAH KEYS on 07/20/24 [facility] MR/BMS.BPon 2024 MR/BMS.BP [facility] [address], [address] [place] [address] OFFICE VISIT Date of Service: 07/20/24 MR#: [id number] Acct: [id number] Name: CEDRIC HOPE Rep #: [id number] : 1995 Provider: JANEL jaffe Age/Sex: 29/F Location[place] [facility] [place] Status: Signed Intake Vital Signs 06/28/24 07:30 07/20/24 15:28 Height 5 ft 4 in 5 ft 4 in BP 112/77 140/77 H Blood Pressure Location Rt brachial Lt brachial Position Sitting Sitting Respiration 16 12 Pulse 83 85 Pulse Source Monitor Monitor BP Intake Visit Reasons: 3wfu Allergies No Known Allergies Allergy (Verified 07/20/24 15:34) Medications ???Medication ???Instructions ???Recorded ???Confirmed ???Type metoprolol tartrate 25 mg tablet 25 mg PO QDAY 01/04/24 07/20/24 History pantoprazole 40 mg tablet,delayed 40 mg PO DAILY #30 tabs 02/02/24 07/20/24 Rx release trazodone 50 mg tablet 50 mg PO QHS PRN insomnia #90 tabs 06/01/24 07/20/24 Rx venlafaxine 150 mg 150 mg PO QAM #90 caps 06/01/24 07/20/24 Rx capsule,extended release 24 hr PFSH Medical History Ulcer of gingiva Depression Anxiety Diabetes Anemia Back pain Gastric reflux Non-smoker CPAP (continuous positive airway pressure) dependence Hypertension Chest pain hypertension History of EKG delivery delivered depression Lab test positive for detection of COVID-19 virus LUIS (obstructive sleep apnea) Infertility Panic attacks Bipolar 1 disorder Asthma Hemorrhoids Surgical History S/P laparoscopic cholecystectomy H/O oral surgery Hx of section Family History Father Brain tumor (benign) Depression CAD (coronary artery disease) Grandmother Hypertension Hyperlipemia Depression Mother Allergies Grandfather Asthma COPD (chronic obstructive pulmonary disease) Social History household members: family current occupational status: employed 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 Reports she tried to take the Vraylar but it was making her sick to her stomach no matter what she was eating. [place] it was making her feel more fatigued while she was taking it. Did feel it was providing some benefit but the side effects were intolerable. Reports her mood and anxiety have been well managed. Admits to feeling depressed more than half the time. Denies SI/HI. Is planning to go to [place] for dinner with her friends and then is going out for drinks in [place] for her birthday today. Reports that she is planning to do a dissolution from her rather than a divorce. Does voice a lot of frustration with her giving up on their relationship. Does still have tearful episodes. Has still been in therapy but has not been in 2 weeks. Sleep has been good. Has started in yoga. Is still at times struggling to wake up. Appetite has been poor recently. Has lost 30 pounds through changing dietary habits and exercise. Previous similar episode: Yes Age of first onset of symptoms: 11-20 years Review of Systems Constitutional Reports: change in weight (has lost 30 pounds ); Denies: fever(s), chills or fatigue Eyes Denies: change in vision or blurry vision Ears, Nose, Mouth, Throat Denies: throat pain or neck pain Cardiovascular Reports: dyspnea; Denies: chest pain or palpitations Respiratory Reports: dyspnea; Denies: wheezing Gastrointestinal Reports: heartburn and bloating; Denies: abdominal pain, nausea, vomiting, diarrhea or constipation Genitourinary Denies: dysuria, urinary frequency or urinary urgency Musculoskeletal Reports: back pain; Denies: neck pain Integumentary/Breast Denies: rash, pruritus or erythema Neurological Reports: headache(s) Psychiatric Reports: anxiety and hopelessness; Denies: mood swings, panic attacks, change in sleep pattern, loss of interest, irritability, paranoia, memory loss, difficulty concentrating, visual hallucinations, auditory hallucinations, suicidal ideation or homicidal ideation Endocrine Denies: fatigue Hematologic/Lymphatic Denies: easy bruising Allergic/Immunolo (more content not included)... Normal [facility] BACTERIAL VAGINOSIS NAATon 0 07-19-2024 Lactobacillus crispatus+gasseri+ jensenii + Gardnerella vaginalis + Atopobium vaginae rRNA VINOD+probe Ql (Vag fld) Not detected Normal Not detected [facility] Comment on above: Order Comment: Speci men Type: SWABOrdering Facility: [facility] Address: [address] [place] [address] Performed By: #### 6 30-4 #### [facility] CLIA [id number] [address] [place] [address] [place] Bacteria Ur Culton Bacteria identified Cx Nom (U) ORGANISM ID: 1 <10,000 CFU/ml Mixed microbiota No further workup. Mixed microbiota can be due to???urine???contaminat ion with skin bacteria at time of collection or presence of a long-term urinary catheter. If a new culture is needed, please consider re-education of the patient on proper midstream collection technique or straight catheterization for???urine???collectio n. Normal [facility] Comment on above: Performed By: #### 6 30-4 #### [facility] CLIA [id number] [address] [place] [address] [place] C. trachomatis+N. gonorrhoea e DNA VINOD+probe Ql (Unsp spec)on 07-19-2024 C. trachomatis rRNA VINOD+probe Ql (Unsp spec) Not detected Normal Not detected [facility] Comment on above: Order Comment: Speci men Type: SWABOrdering Facility: [facility] Address: [address] [place] [address] Performed By: #### 6 30-4 #### [facility] CLIA [id number] [address] [place] [address] [place] N. gonorrhoeae rRNA VINOD+probe Ql (Unsp spec) Not detected Normal Not detected [facility] Comment on above: Order Comment: Speci men Type: SWABOrdering Facility: [facility] Address: [address] [place] [address] Performed By: #### 6 30-4 #### [facility] CLIA [id number] [address] [place] [address] [place] CHRISSIE/TRICHOMONAS NAATon 0 07-19-2024 C. glabrata RNA VINOD+probe Ql (Vag fld) Not detected Normal Not detected [facility] Comment on above: Order Comment: Speci men Type: SWABOrdering Facility: [facility] Address: [address] [place] [address] Performed By: #### C VTV ####[facility] [id number] [place] [address] [place] Chrissie sp DNA VINOD+probe Ql (Vag fld) Not detected Normal Not detected [facility] Comment on above: Order Comment: Speci men Type: SWABOrdering Facility: [facility] Address: [address] [place] [address] Result Comment: The Chrissie species group target includes C. albicans, C. tropicalis, C. parapsilosis, and C. dubliniensis. Performed By: #### C VTV ####[facility] [id number] [place] [address] [place] T. vaginalis DNA VINOD+probe Ql (Unsp spec) Not detected Normal Not detected [facility] Comment on above: Order Comment: Speci men Type: SWABOrdering Facility: [facility] Address: [address] [place] [address] Performed By: #### C VTV ####[facility] [id number] [address] [address] [place] CNOVon 07-19-2024 CNOV Office Visit (UCWSTR ) CEDRIC HOPE ([id number]) 1995 F Date Time Provider Department 07/19/24 6:15 PM KISHORE RODRÍGUEZ [facility] During your visit today, we recorded the following information about you: Temperature Pulse Respiration Blood pressure 98.7 degrees 97/minute 18/minute 134/77 Last Period 07/05/24 Kishore Rodríguez APRN.[employer] 07/19/2024 6:54 PM Signed Subjective HPI A nontoxic appearing female presents to urgent care with chief complaint of possible UTI. Duration of symptoms 3 days. Associated symptoms dysuria, frequency, and urgency. Patient has history of UTIs in past with similar signs and symptoms. Patient denies the use of any eude-rks-kdnazca medications or home remedies for symptom management. Patient states pain is a 3/10. Patient denies any fevers, flank pain, abdominal pain, nausea, vomiting, vaginal discharge chance of , or urological abnormalities. Last menstrual cycle 2 weeks ago. Past medical history prescription medications allergies reviewed. .Patient presents with: UTI: Low back pain, burning with urination PAST MEDICAL HISTORY Diagnosis Date Chlamydia 2013 and 2017 Depression Infertility, female Panic attacks depression PAST SURGICAL HISTORY Procedure Laterality Date DELIVERY ONLY 04/12/2017 PAST SURGICAL HISTORY OF oral (gum) surgery ALLERGIES Patient has no known allergies. MEDICATIONS fluticasone (FLONASE) 50 mcg/actuation nasal spray Use 2 Sprays in each nostril once daily. Rinse mouth after use. VRAYLAR 1.5 mg capsule Take 1 capsule by mouth every afternoon. venlafaxine ER (EFFEXOR XR) 150 mg 24 hr capsule Take 150 mg by mouth every morning. venlafaxine (EFFEXOR) 75 mg tablet TAKE 1 TABLET BY MOUTH 2 TIMES A DAY IN THE MORNING AND EVENING traZODone (DESYREL) 50 mg tablet Take 50 mg by mouth at bedtime as needed. pantoprazole DR (PROTONIX) 40 mg tablet Take 40 mg by mouth once daily. furosemide (LASIX) 20 mg tablet Take 20 mg by mouth. metoprolol tartrate, short acting, (LOPRESSOR) 25 mg tablet TAKE 1/2 TABLET BY MOUTH 2 TIMES A DAY SPRINTEC 0.25-35 mg-mcg per tablet omeprazole (PRILOSEC) 20 mg capsule Take 20 mg by mouth once daily. busPIRone (BUSPAR) 10 mg tablet citalopram (CELEXA) 40 mg tablet oxyCODONE-acetaminophen (PERCOCET) 5-325 mg tablet (Patient not taking: Reported on 05/11/2022) labetalol (TRANDATE) 100 mg tablet (Patient not taking: Reported on 05/11/2022) ibuprofen (MOTRIN) 600 mg tablet (Patient not taking: Reported on 05/11/2022) ferrous sulfate (IRON ORAL) Take by mouth. docusate sodium (COLACE ORAL) Take by mouth. (Patient not taking: Reported on 05/11/2022) Morikyxq-Zs-Nbp-Fe-FA ( VITAMIN) tab Take 1 tablet by mouth. (Patient not taking: Reported on 05/11/2022) hydrOXYzine Pamoate 100 mg capsule (Patient not taking: Reported on 10/07/2021 ) escitalopram oxalate (LEXAPRO) 20 mg tablet Take 1 tablet by mouth once daily. (Patient not taking: Reported on 10/07/2021 ) FAMILY HISTORY Problem Relation Age of Onset Allergies Mother Anxiety disorder Mother other (brain tumor benign) Father other (Depression, anxiety , panic attacks) Father Hypertension Father No Known Problems Sister No Known Problems Sister No Known Problems Brother No Known Problems Brother No Known Problems Brother Hypertension Maternal Grandmother Lipids Maternal Grandmother other (Depression) Maternal Grandmother Breast Cancer Maternal Grandmother Asthma Maternal Grandfather COPD Maternal Grandfather Heart Paternal Grandmother COPD Paternal Grandfather Liver Disease Paternal Grandfather No Known Problems Daughter Social History Tobacco Use Smoking status: Never Smokeless tobacco: Never Vaping Use Vaping status: Never Used Substance Use Topics Alcohol use: No Drug use: No BP 134/77 Pulse 97 Temp 37.1 ?C (98.7 ?F) Resp 18 LMP 07/05/2024 (Within Days) SpO2 99% No Review of Systems Constitutional: Negative for chills, fever and malaise/fatigue. Cardiovascular: Negative for chest pain. Gastrointestinal: Negative for abdominal pain, constipation, diarrhea, nausea and vomiting. Genitourinary: Positive for dysuria, frequency and urgency. Negative for flank pain and hematuria. Musculoskeletal: Negative for myalgias. Objective Physical Exam Vitals and nursing note reviewed. Constitutional: General: She is not in acute distress. Appearance: She is not diaphoretic. HENT: Head: Jaw: No trismus. Right Ear: Hearing normal. No decreased hearing noted. No drainage, swelling or tenderness. Tympanic membrane is not perforated, erythematous or bulging. Left Ear: Hearing normal. No decreased hearing noted. No drainage, swelling or tenderness. Tympanic membrane is not perforated, erythematous or bulging. Mouth/Throat: (more content not included)... Normal [facility] UA DIP, URINE (POC)on 2024 BILIRUBIN UA (POCT) Negative Negative [facility] CLARITY UA (POCT) Clear [facility] COLOR UA (POCT) Yellow [facility] GLUCOSE UA (POCT) Negative Negative mg/dL [facility] Hemoglobin Ql (U) Negative Negative [facility] Interpretation and review of laboratory results Abnormal [facility] KETONE UA (POCT) Negative Negative mg/dL [facility] LEUKOCYTES UA (POCT) Negative Negative [facility] NITRITE UA (POCT) Negative Negative [facility] PH UA (POCT) 5.5 4.5 - 8.0 [facility] Protein Ql (U) 30 mg/dL Abnormal Negative [facility] SPECIFIC GRAVITY UA (POCT) >=1.030 1.005 - 1.030 [facility] UROBILINOGEN UA (POCT) 0.2 Normal E.U./dL [facility] Location:[facility], [address] [place] [address], [place], [address] [facility] POINT OF CARE [facility] CNOVon 07-07-2024 CNOV Office Visit (UCWSTR ) CEDRIC HOPE ([id number]) 1995 F Date Time Provider Department 07/07/24 9:45 AM NICOLASA DICKENS [facility] During your visit today, we recorded the following information about you: Temperature Pulse Respiration Blood pressure 98.6 degrees 91/minute 18/minute 122/84 Weight 132.5 kg Nicolasa Dickens, PAYABLE REPRESENTATIVE.[facility] 07/07/2024 9:56 AM Signed Subjective Sore Throat Associated symptoms include congestion and headaches. Pertinent negatives include no diarrhea, ear pain or vomiting. Cedric Hope is a 28 year old female who presents with 5 days of sore throat, nasal congestion, throat congestion, and facial pressure. She was seen here 2 days ago with same symptoms. Advised viral illness, strep and COVID/flu/RSV test were negative. She has used tylenol/ibuprofen at home and feels symptoms are worse. Denies fever. Review of Systems Constitutional: Negative for chills, fever and malaise/fatigue. HENT: Positive for congestion, sinus pain and sore throat. Negative for ear pain. Respiratory: Negative. Cardiovascular: Negative. Gastrointestinal: Negative for diarrhea, nausea and vomiting. Musculoskeletal: Negative for myalgias. Neurological: Positive for headaches. BP 122/84 Pulse 91 Temp 37 ?C (98.6 ?F) Resp 18 Wt 132.5 kg (292 lb) LMP 01/02/2021 (Exact Date) SpO2 99% BMI 51.73 kg/m? PAST MEDICAL HISTORY Diagnosis Date Chlamydia 2013 and 2016 Depression Infertility, female Panic attacks depression PAST SURGICAL HISTORY Procedure Laterality Date DELIVERY ONLY 04/12/2017 PAST SURGICAL HISTORY OF oral (gum) surgery ALLERGIES Patient has no known allergies. MEDICATIONS amoxicillin-clavulanate potassium (AUGMENTIN) 875-125 mg per tablet Take 1 tablet by mouth two times a day for 7 days. fluticasone (FLONASE) 50 mcg/actuation nasal spray Use 2 Sprays in each nostril once daily. Rinse mouth after use. fluconazole (DIFLUCAN) 150 mg tablet Take 1 tablet by mouth one time only for 1 dose. VRAYLAR 1.5 mg capsule Take 1 capsule by mouth every afternoon. venlafaxine ER (EFFEXOR XR) 150 mg 24 hr capsule Take 150 mg by mouth every morning. venlafaxine (EFFEXOR) 75 mg tablet TAKE 1 TABLET BY MOUTH 2 TIMES A DAY IN THE MORNING AND EVENING traZODone (DESYREL) 50 mg tablet Take 50 mg by mouth at bedtime as needed. pantoprazole DR (PROTONIX) 40 mg tablet Take 40 mg by mouth once daily. furosemide (LASIX) 20 mg tablet Take 20 mg by mouth. metoprolol tartrate, short acting, (LOPRESSOR) 25 mg tablet TAKE 1/2 TABLET BY MOUTH 2 TIMES A DAY SPRINTEC 0.25-35 mg-mcg per tablet omeprazole (PRILOSEC) 20 mg capsule Take 20 mg by mouth once daily. busPIRone (BUSPAR) 10 mg tablet citalopram (CELEXA) 40 mg tablet oxyCODONE-acetaminophen (PERCOCET) 5-325 mg tablet (Patient not taking: Reported on 05/11/2022) labetalol (TRANDATE) 100 mg tablet (Patient not taking: Reported on 05/11/2022) ibuprofen (MOTRIN) 600 mg tablet (Patient not taking: Reported on 05/11/2022) ferrous sulfate (IRON ORAL) Take by mouth. docusate sodium (COLACE ORAL) Take by mouth. (Patient not taking: Reported on 05/11/2022) Czyljehi-Yi-Omn-Fe-FA ( VITAMIN) tab Take 1 tablet by mouth. (Patient not taking: Reported on 05/11/2022) hydrOXYzine Pamoate 100 mg capsule (Patient not taking: Reported on 10/07/2021 ) escitalopram oxalate (LEXAPRO) 20 mg tablet Take 1 tablet by mouth once daily. (Patient not taking: Reported on 10/07/2021 ) FAMILY HISTORY Problem Relation Age of Onset Allergies Mother Anxiety disorder Mother other (brain tumor benign) Father other (Depression, anxiety , panic attacks) Father Hypertension Father No Known Problems Sister No Known Problems Sister No Known Problems Brother No Known Problems Brother No Known Problems Brother Hypertension Maternal Grandmother Lipids Maternal Grandmother other (Depression) Maternal Grandmother Breast Cancer Maternal Grandmother Asthma Maternal Grandfather COPD Maternal Grandfather Heart Paternal Grandmother COPD Paternal Grandfather Liver Disease Paternal Grandfather No Known Problems Daughter Social History Tobacco Use Smoking status: Never Smokeless tobacco: Never Vaping Use Vaping status: Never Used Substance Use Topics Alcohol use: No Drug use: No Objective Physical Exam Vitals and nursing note reviewed. Constitutional: Appearance: Normal appearance. HENT: Right Ear: Tympanic membrane, ear canal and external ear normal. Left Ear: Tympanic membrane, ear canal and external ear normal. Nose: Nasal tenderness, mucosal edema, congestion and rhinorrhea present. Mouth/Throat: Pharynx: Uvula midline. Postnasal drip present. No oropharyngeal exudate or posterior oropharyngeal erythema. Tonsils: No tonsillar exudate. 2+ on the right. 2+ on (more content not included)... Normal [facility] ([id number]) 1995 F Date Time Provider Department 07/06/24 APPLE FOSTER [facility] During your visit today, we recorded the following information about you: Apple Foster APRN.[facility] 07/06/2024 7:12 AM Signed Please notify that covid/flu/rsv testing negative. Continue with plan of care as discussed during visit. Deborah Keys MA 07/06/2024 8:57 AM Signed Patient notified. Deborah Keys MA Allergies As of Date: 07/06/2024 (No Known Allergies) Date Reviewed: 07/05/2024 Reviewed by: Deborah Keys MA - Fully Assessed Reason for Visit: Results [95] Prescriptions as of 07/06/2024 - VRAYLAR 1.5 mg capsule Take 1 capsule by mouth every afternoon. - venlafaxine ER (EFFEXOR XR) 150 mg 24 hr capsule Take 150 mg by mouth every morning. - venlafaxine (EFFEXOR) 75 mg tablet TAKE 1 TABLET BY MOUTH 2 TIMES A DAY IN THE MORNING AND EVENING - traZODone (DESYREL) 50 mg tablet Take 50 mg by mouth at bedtime as needed. - pantoprazole DR (PROTONIX) 40 mg tablet Take 40 mg by mouth once daily. - furosemide (LASIX) 20 mg tablet Take 20 mg by mouth. - metoprolol tartrate, short acting, (LOPRESSOR) 25 mg tablet TAKE 1/2 TABLET BY MOUTH 2 TIMES A DAY - SPRINTEC 0.25-35 mg-mcg per tablet - omeprazole (PRILOSEC) 20 mg capsule Take 20 mg by mouth once daily. - busPIRone (BUSPAR) 10 mg tablet - citalopram (CELEXA) 40 mg tablet - oxyCODONE-acetaminophen (PERCOCET) 5-325 mg tablet - labetalol (TRANDATE) 100 mg tablet - ibuprofen (MOTRIN) 600 mg tablet - ferrous sulfate (IRON ORAL) Take by mouth. - docusate sodium (COLACE ORAL) Take by mouth. - Mozfhaqj-Ax-Rea-Fe-FA ( VITAMIN) tab Take 1 tablet by mouth. - hydrOXYzine Pamoate 100 mg capsule - escitalopram oxalate (LEXAPRO) 20 mg tablet Take 1 tablet by mouth once daily. Problem List As Of Date 07/06/2024 Noted Resolved control counseling [Z30.09] 09/11/2013 09/28/2016 Sore throat [J02.9] 02/03/2014 09/28/2016 Odynophagia [R13.10] 02/03/2014 Spotting in [O26.859] 08/26/2016 09/28/2016 History of depression [Z86.59] 08/26/2016 Family history of defects [Z82.79] 08/26/2016 Obesity during [O99.210] 08/31/2016 Supervision of high risk due to socia*08/31/2016 04/27/2017 Chlamydia infection affecting [O98.81*10/21/2016 04/27/2017 with history of section, ant*02/12/2021 associated with use of clomiphene, cu*02/12/2021 Nausea and vomiting during [O21.9] 02/12/2021 Patient request for diagnostic testing [Z01.89] 02/12/2021 GBS bacteriuria [R82.71] 02/24/2021 Encounter Status:Closed by DEBORAH KEYS on 07/06/24 [facility] CNOVon 07-05-2024 CNOV Office Visit (UCWSTR ) CEDRIC HOPE ([id number]) 1995 F Date Time Provider Department 07/05/24 5:15 PM YURY WHITE [facility] During your visit today, we recorded the following information about you: Temperature Pulse Respiration Blood pressure 99.3 degrees 92/minute 18/minute 131/84 Weight 132.8 kg Yury White APRN.[employer] 07/05/2024 5:56 PM Signed CC: Patient presents with: Cough: Sinus pressure, congestion x2 days HPI: Cedric Hope is a 28 year old female who presents to the office with complaint of head congestion, cough, nonproductive, and sinus symptoms for a few days. Symptoms are worsening Associated symptoms includes nasal congestion and cough. Denies wheezing, dyspnea, nausea, vomiting , and diarrhea. Treatments tried include nothing so far. with no relief of symptoms. Sick contacts: unknown. History of asthma, frequent episodes of bronchitis, chronic bronchitis, bronchiectasis or COPD: No Smoker: No Seasonal/environmental allergies: No The ROS is otherwise negative. The patient's pmh, medications, allergies, and past visits are reviewed. PHYSICAL EXAM: BP 131/84 Pulse 92 Temp 37.4 ?C (99.3 ?F) Resp 18 Wt 132.8 kg (292 lb 12.3 oz) LMP 01/02/2021 (Exact Date) SpO2 98% BMI 51.86 kg/m? General appearance: alert, cooperative, pleasant, in no acute distress Head: Normocephalic Eyes: EOM's intact, conjunctiva pink and moist, no icterus, sclera white, non-injected Ears: Right ear: External ear/canal- Normal, TM - clear with good landmarks. Left ear: External ear/canal- Normal, TM - clear with good landmarks Oropharynx:moist without lesions, No erythema, exudates or tonsillar hypertrophy. Heart: Negative. RRR without obvious murmur, gallop, or rubs. No ectopy. Lungs: clear to auscultation, without rales or wheeze, good air exchange PAST MEDICAL HISTORY Diagnosis Date Chlamydia 2013 and 2016 Depression Infertility, female Panic attacks depression PAST SURGICAL HISTORY Procedure Laterality Date DELIVERY ONLY 04/12/2017 PAST SURGICAL HISTORY OF oral (gum) surgery ALLERGIES Patient has no known allergies. MEDICATIONS VRAYLAR 1.5 mg capsule Take 1 capsule by mouth every afternoon. venlafaxine ER (EFFEXOR XR) 150 mg 24 hr capsule Take 150 mg by mouth every morning. venlafaxine (EFFEXOR) 75 mg tablet TAKE 1 TABLET BY MOUTH 2 TIMES A DAY IN THE MORNING AND EVENING traZODone (DESYREL) 50 mg tablet Take 50 mg by mouth at bedtime as needed. pantoprazole DR (PROTONIX) 40 mg tablet Take 40 mg by mouth once daily. furosemide (LASIX) 20 mg tablet Take 20 mg by mouth. metoprolol tartrate, short acting, (LOPRESSOR) 25 mg tablet TAKE 1/2 TABLET BY MOUTH 2 TIMES A DAY SPRINTEC 0.25-35 mg-mcg per tablet omeprazole (PRILOSEC) 20 mg capsule Take 20 mg by mouth once daily. busPIRone (BUSPAR) 10 mg tablet citalopram (CELEXA) 40 mg tablet ferrous sulfate (IRON ORAL) Take by mouth. oxyCODONE-acetaminophen (PERCOCET) 5-325 mg tablet (Patient not taking: Reported on 05/11/2022) labetalol (TRANDATE) 100 mg tablet (Patient not taking: Reported on 05/11/2022) ibuprofen (MOTRIN) 600 mg tablet (Patient not taking: Reported on 05/11/2022) docusate sodium (COLACE ORAL) Take by mouth. (Patient not taking: Reported on 05/11/2022) Vkpvacki-Gm-Dsu-Fe-FA ( VITAMIN) tab Take 1 tablet by mouth. (Patient not taking: Reported on 05/11/2022) hydrOXYzine Pamoate 100 mg capsule (Patient not taking: Reported on 10/07/2021 ) escitalopram oxalate (LEXAPRO) 20 mg tablet Take 1 tablet by mouth once daily. (Patient not taking: Reported on 10/07/2021 ) FAMILY HISTORY Problem Relation Age of Onset Allergies Mother Anxiety disorder Mother other (brain tumor benign) Father other (Depression, anxiety , panic attacks) Father Hypertension Father No Known Problems Sister No Known Problems Sister No Known Problems Brother No Known Problems Brother No Known Problems Brother Hypertension Maternal Grandmother Lipids Maternal Grandmother other (Depression) Maternal Grandmother Breast Cancer Maternal Grandmother Asthma Maternal Grandfather COPD Maternal Grandfather Heart Paternal Grandmother COPD Paternal Grandfather Liver Disease Paternal Grandfather No Known Problems Daughter Social History Tobacco Use Smoking status: Never Smokeless tobacco: Never Vaping Use Vaping status: Never Used Substance Use Topics Alcohol use: No Drug use: No ASSESSMENT/PLAN: 1. Sore throat - ICD9: 462, ICD10: J02.9 (primary diagnosis) - STREP A MOLECULAR (POC) - neg 2. URI, acute - ICD9: 465.9, ICD10: J06.9 - COVID AND INFLUENZA A/B AND RSV PCR, ROUTINE Otc meds for symptoms. Potential red flag symptoms discussed with the patient. Reviewed appropriate action plan to take if red flag symptoms occur. Patient agreea (more content not included)... Normal [facility] COVID AND INFLUENZA A/B AND RSV PCR, ROUTINEon 07-05-2024 SARS-CoV-2 (COVID-19) RNA VINOD+probe Ql (Unsp spec) SARS-COV-2 (AGENT OF COVID-19) RNA: Not detected INFLUENZA A RNA: Not detected INFLUENZA B RNA: Not detected RESPIRATORY SYNCYTIAL VIRUS (RSV) RNA: Not detected Normal [facility] Comment on above: Performed By: #### 6 30-4 #### [facility] CLIA [id number] [address] [place] [address] [place] STREP A MOLECULAR (POC)on Procedural Control Valid [facility] Strep A (POCT) Negative Negative [facility] MR/BMS.BPon 06-28-2024 MR/BMS.BP [facility] [address] [facility], [address] [place] [address] OFFICE VISIT Date of Service: 06/28/24 MR#: [id number] Acct: [id number] Name: CEDRIC HOPE Rep #: [id number] : 1995 Provider: JANEL jaffe Age/Sex: 28/F Location[place] [facility] [place] Status: Signed Intake Vital Signs 06/05/24 17:29 06/28/24 07:30 Height 5 ft 4 in 5 ft 4 in BP 112/77 Blood Pressure Location Rt brachial Position Sitting Respiration 16 Pulse 83 Pulse Source Monitor BP Intake Visit Reasons: Depression Accompanied by: Self Allergies No Known Allergies Allergy (Verified 06/28/24 07:35) Medications ???Medication ???Instructions ???Recorded ???Confirmed ???Type metoprolol tartrate 25 mg tablet 25 mg PO QDAY 01/04/24 06/28/24 History pantoprazole 40 mg tablet,delayed 40 mg PO DAILY #30 tabs 02/02/24 06/28/24 Rx release trazodone 50 mg tablet 50 mg PO QHS PRN insomnia #90 tabs 06/01/24 06/28/24 Rx venlafaxine 150 mg 150 mg PO QAM #90 caps 06/01/24 06/28/24 Rx capsule,extended release 24 hr cariprazine 1.5 mg capsule 1.5 mg PO QDAY #30 caps 06/28/24 06/28/24 Rx (Vraylar) PFSH Medical History Ulcer of gingiva Depression Anxiety Diabetes Anemia Back pain Gastric reflux Non-smoker CPAP (continuous positive airway pressure) dependence Hypertension Chest pain hypertension History of EKG delivery delivered depression Lab test positive for detection of COVID-19 virus LUIS (obstructive sleep apnea) Infertility Panic attacks Bipolar 1 disorder Asthma Hemorrhoids Surgical History S/P laparoscopic cholecystectomy H/O oral surgery Hx of section Family History Father Brain tumor (benign) Depression CAD (coronary artery disease) Grandmother Hypertension Hyperlipemia Depression Mother Allergies Grandfather Asthma COPD (chronic obstructive pulmonary disease) Social History household members: family current occupational status: employed 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 Is starting the IOP program for [facility]. Admits to having a difficult time with her divorce and feels her has been more emotionally manipulative toward her recently. Has been feeling depressed daily and is crying every day but not all day. Patient admits to some passive SI/HI. Denies plan or intent. Patient reports anxiety has been increased as well with the holidays and being alone and away from her kids when they are with their fathers. Has had 1 panic attack since last appointment. Patient has been sleeping well mostly with the use of trazodone. Has been taking medication as prescribed. Has been eating well and has been trying to go to the gym when she can but feels mood affects this. Is planning to spend the weekend with her friends and have a slumber democrat with her friends while her children are with their fathers. Does report some feelings of guilt about having to remove her daughter from her previous elementary and send her to a [employer] elementary school as she was doing well previously. Previous similar episode: Yes Age of first onset of symptoms: 11-20 years Review of Systems Constitutional Reports: change in weight (has lost 20 pounds ); Denies: fever(s), chills or fatigue Eyes Denies: change in vision or blurry vision Ears, Nose, Mouth, Throat Denies: throat pain or neck pain Cardiovascular Reports: dyspnea; Denies: chest pain or palpitations Respiratory Reports: dyspnea; Denies: wheezing Gastrointestinal Reports: heartburn and bloating; Denies: abdominal pain, nausea, vomiting, diarrhea or constipation Genitourinary Denies: dysuria, urinary frequency or urinary urgency Musculoskeletal Reports: back pain; Denies: neck pain Integumentary/Breast Denies: rash, pruritus or erythema Neurological Reports: headache(s) Psychiatric Reports: anxiety, panic attacks, hopelessness and suicidal ideation (passive, denies plan or intent ); Denies: mood swings, change in sleep pattern, loss of interest, irritability, paranoia, memory loss, difficulty concentrating, visual he (more content not included)... Normal [facility] BACTERIAL VAGINOSIS NAATon 1 08-06-2023 Lactobacillus crispatus+gasseri+ jensenii + Gardnerella vaginalis + Atopobium vaginae rRNA VINOD+probe Ql (Vag fld) Not detected Normal Not detected [facility] Comment on above: Order Comment: Speci men Type: SWABOrdering Facility: [facility] Address: [address] [place] [address] Performed By: #### 3 6902-5, BVAMP ####[facility] [id number] [place] [address] [place] Bacteria Ur Culton Bacteria identified Cx Nom (U) ORGANISM ID: 1 10,000 -<50,000 CFU/ml Normal urogenital hesham Normal [facility] Comment on above: Performed By: #### 6 30-4 #### [facility] CLIA [id number] [address] [place] [address] [place] C. trachomatis+N. gonorrhoea e DNA VINOD+probe Ql (Unsp spec)on 06-06-2024 C. trachomatis rRNA VINOD+probe Ql (Unsp spec) Not detected Normal Not detected [facility] Comment on above: Order Comment: Speci men Type: SWABOrdering Facility: [facility] Address: [address] [place] [address] Performed By: #### 3 6902-5, BVAMP ####[facility] [id number] [place] [address] [place] N. gonorrhoeae rRNA VINOD+probe Ql (Unsp spec) Not detected Normal Not detected [facility] Comment on above: Order Comment: Speci men Type: SWABOrdering Facility: [facility] Address: [address] [place] [address] Performed By: #### 3 6902-5, BVAMP ####[facility] [id number] [place] [address] [place] CHRISSIE/TRICHOMONAS NAATon 1 08-06-2023 C. glabrata RNA VINOD+probe Ql (Vag fld) Not detected Normal Not detected [facility] Comment on above: Order Comment: Speci men Type: SWABOrdering Facility: [facility] Address: [address] [place] [address] Performed By: #### C VTV ####[facility] [id number] [place] [address] [place] Chrissie sp DNA VINOD+probe Ql (Vag fld) Not detected Normal Not detected [facility] Comment on above: Order Comment: Speci men Type: SWABOrdering Facility: [facility] Address: [address] [place] [address] Result Comment: The Chrissie species group target includes C. albicans, C. tropicalis, C. parapsilosis, and C. dubliniensis. Performed By: #### C VTV ####[facility] [id number] [place] [address] [place] T. vaginalis DNA VINOD+probe Ql (Unsp spec) Not detected Normal Not detected [facility] Comment on above: Order Comment: Speci men Type: SWABOrdering Facility: [facility] Address: [address] [place] [address] Performed By: #### C VTV ####[facility] [id number] [place] [address] [place] CNOVon 06-06-2024 [facility] CEDRIC HOPE ([id number]) 1995 F Date Time Provider Department 06/06/24 1:00 PM VAISHALI JUDGEMAX During your visit today, we recorded the following information about you: Temperature Pulse Respiration Blood pressure 98.5 degrees 97/minute 18/minute 136/70 Weight 134.5 kg Vaishali Judge APRN.[employer]AM [employer]OVEL [employer]NER 06/06/2024 1:40 PM Signed This note was created using [employer] Classifiedsriter. Subjective Cedric Hope is a 28 year old female. 28 year old female with no PMH presents for multiple complaints URI Acute onset 2 days ago +cough +sinus pressure +sinus pain +productive Denies N/V/D Denies fever Denies CP. Denies dyspnea Son has been treated for both pneumonia and ear infection STD testing Urinary frequency, otherwise Denies symptoms. States she believes her has been unfaithful And I just want to check Denies abdominal pain Denies vaginal discharge Denies vaginal bleeding The history is provided by the patient. No outside machinist apprentice was used. URI She complains of cough, sputum production and wheezing. There is no chest tightness, difficulty breathing, frequent throat clearing, hemoptysis, hoarse voice or shortness of breath. This is a new problem. The current episode started yesterday. The problem occurs constantly. The problem has been unchanged. The cough is productive of sputum. Associated symptoms include nasal congestion, postnasal drip and sneezing. Pertinent negatives include no appetite change, chest pain, dyspnea on exertion, ear congestion, ear pain, fever, headaches, heartburn, malaise/fatigue, myalgias, orthopnea, PND, rhinorrhea, sore throat, sweats, trouble swallowing or weight loss. Her symptoms are aggravated by nothing. Her symptoms are alleviated by nothing. She reports no improvement on treatment. There are no known risk factors for lung disease. There is no history of asthma, bronchiectasis, bronchitis, COPD, emphysema or pneumonia. Female Gu Problem This is a new problem. The onset is undetermined. The problem occurs continuously. The problem has been unchanged. The patient is experiencing no pain. Nothing relieves the symptoms. Nothing aggravates the symptoms. Associated symptoms include cough. Pertinent negatives include no chest pain, no fever, no abdominal pain, no constipation, no diarrhea, no nausea, no vomiting, no dysuria, no frequency, no hematuria, no pelvic pain, no urgency, no vaginal bleeding, no vaginal discharge, no vaginal pain, no headaches, no sore throat, no shortness of breath, no rash and no dyspareunia. There has been no history of trauma. Urine output has been normal. The last void occurred Less than 6 hours ago. She is currently Sexually active. She has 1 sexual partner. She is not . She has not missed her period. She has had no prior pregancies. Her past medical history does not include STD, PID or UTI. There were no sick contacts. She has received no recent medical care. PAST MEDICAL HISTORY Diagnosis Date Chlamydia 2013 and 2016 Depression Infertility, female Panic attacks depression PAST SURGICAL HISTORY Procedure Laterality Date DELIVERY ONLY 04/12/2017 PAST SURGICAL HISTORY OF oral (gum) surgery ALLERGIES Patient has no known allergies. MEDICATIONS venlafaxine ER (EFFEXOR XR) 150 mg 24 hr capsule Take 150 mg by mouth every morning. venlafaxine (EFFEXOR) 75 mg tablet TAKE 1 TABLET BY MOUTH 2 TIMES A DAY IN THE MORNING AND EVENING traZODone (DESYREL) 50 mg tablet Take 50 mg by mouth at bedtime as needed. pantoprazole DR (PROTONIX) 40 mg tablet Take 40 mg by mouth once daily. furosemide (LASIX) 20 mg tablet Take 20 mg by mouth. metoprolol tartrate, short acting, (LOPRESSOR) 25 mg tablet TAKE 1/2 TABLET BY MOUTH 2 TIMES A DAY SPRINTEC 0.25-35 mg-mcg per tablet omeprazole (PRILOSEC) 20 mg capsule Take 20 mg by mouth once daily. busPIRone (BUSPAR) 10 mg tablet citalopram (CELEXA) 40 mg tablet ferrous sulfate (IRON ORAL) Take by mouth. oxyCODONE-acetaminophen (PERCOCET) 5-325 mg tablet (Patient not taking: Reported on 05/11/2022) labetalol (TRANDATE) 100 mg tablet (Patient not taking: Reported on 05/11/2022) ibuprofen (MOTRIN) 600 mg tablet (Patient not taking: Reported on 05/11/2022) docusate sodium (COLACE ORAL) Take by mouth. (Patient not taking: Reported on 05/11/2022) Zmonqbwt-Lt-Kkh-Fe-FA ( VITAMIN) tab Take 1 tablet by mouth. (Patient not taking: Reported on 05/11/2022) hydrOXYzine Pamoate 100 mg capsule (Patient not taking: Reported on 10/07/2021 ) escitalopram oxalate (LEXAPRO) 20 mg tablet Take 1 tablet by mouth once daily. (Patient not taking: Reported on 10/07/2021 ) FAMILY HISTORY Problem Relation Age of Onset Allergies Mother Anxiety disorder Mother other (brain tumor benign) Father other ( (more content not included)... Normal [facility] UA DIP, URINE (POC)on 2023 BILIRUBIN UA (POCT) Negative Negative [facility] CLARITY UA (POCT) Clear [facility] COLOR UA (POCT) Yellow [facility] GLUCOSE UA (POCT) Negative Negative mg/dL [facility] Hemoglobin Ql (U) Negative Negative [facility] Interpretation and review of laboratory results Abnormal [facility] KETONE UA (POCT) Trace Negative mg/dL [facility] LEUKOCYTES UA (POCT) Negative Negative [facility] NITRITE UA (POCT) Negative Negative [facility] PH UA (POCT) 7.0 4.5 - 8.0 [facility] Protein Ql (U) Trace Abnormal Negative mg/dL [facility] SPECIFIC GRAVITY UA (POCT) 1.025 1.005 - 1.030 [facility] UROBILINOGEN UA (POCT) 0.2 Normal E.U./dL [facility] Location:[facility], [address] [place] [address], [place], [place], [id number] [place] [address] POINT OF CARE [facility] XR CHEST 2V FRONTAL/LATon XR CHEST 2V FRONTAL/LAT * * *Final Report* * * DATE OF EXAM: Jun 06 2024 1:21PM WOX [id number] - XR CHEST 2V FRONTAL/LAT / PROCEDURE REASON: Acute cough * * * * Physician Interpretation * * * * EXAMINATION: CHEST RADIOGRAPH (2 VIEW FRONTAL and LATERAL) CLINICAL HISTORY: Acute cough MQ: XC2_6 EXAM DATE/TIME: 06/06/2024 1:21 PM COMPARISON: Chest x-ray of 10/07/2021 RESULT: Lines, tubes, and devices: None. Lungs and pleura: No consolidation. No lung mass. No pleural effusion. No pneumothorax. Cardiomediastinal silhouette: Normal cardiomediastinal silhouette. Bones and soft tissues: Unremarkable. IMPRESSION: No acute radiographic abnormality. Deicer Finisher: PSCB Transcribe Date/Time: Jun 06 2024 1:21P Dictated by : SARIKA BENSON MD This examination was interpreted and the report reviewed and electronically signed by: SARIKA BENSON MD on Jun 06 2024 1:21PM EST [id number] Normal [facility] XR Chest PA and Lateralon IMPRESSION: No acute radiographic abnormality. Deicer Finisher: PSCB Transcribe Date/Time: Jun 06 2024 1:21P Dictated by : SARIKA BENSON MD This examination was interpreted and the report reviewed and electronically signed by: SARIKA BENSON MD on Jun 06 2024 1:21PM EST DIVISION OF RADIOLOGY * * *Final Report* * * DATE OF EXAM: Jun 06 2024 1:21PM WOX [id number] - XR CHEST 2V FRONTAL/LAT / PROCEDURE REASON: Acute cough * * * * Physician Interpretation * * * * EXAMINATION: CHEST RADIOGRAPH (2 VIEW FRONTAL & LATERAL) CLINICAL HISTORY: Acute cough MQ: XC2_6 EXAM DATE/TIME: 06/06/2024 1:21 PM COMPARISON: Chest x-ray of 10/07/2021 RESULT: Lines, tubes, and devices: None. Lungs and pleura: No consolidation. No lung mass. No pleural effusion. No pneumothorax. Cardiomediastinal silhouette: Normal cardiomediastinal silhouette. Bones and soft tissues: Unremarkable. DIVISION OF RADIOLOGY Provider, [facility] - 06/06/2024 * * *Final Report* * * DATE OF EXAM: Jun 06 2024 1:21PM WOX 5291 - XR CHEST 2V FRONTAL/LAT / PROCEDURE REASON: Acute cough * * * * Physician Interpretation * * * * EXAMINATION: CHEST RADIOGRAPH (2 VIEW FRONTAL & LATERAL) CLINICAL HISTORY: Acute cough MQ: XC2_6 EXAM DATE/TIME: 06/06/2024 1:21 PM COMPARISON: Chest x-ray of 10/07/2021 RESULT: Lines, tubes, and devices: None. Lungs and pleura: No consolidation. No lung mass. No pleural effusion. No pneumothorax. Cardiomediastinal silhouette: Normal cardiomediastinal silhouette. Bones and soft tissues: Unremarkable. IMPRESSION IMPRESSION: No acute radiographic abnormality. Deicer Finisher: PSCB Transcribe Date/Time: Jun 06 2024 1:21P Dictated by : SARIKA BENSON MD This examination was interpreted and the report reviewed and electronically signed by: SARIKA BENSON MD on Jun 06 2024 1:21PM EST [facility] Radiology Study observation (narrative) [facility] XR Chest PA and LateralOrder ed By: Ccf Provider on 06-06-2024 [facility] 12 Lead EKGon 06-05-2024 12 Lead EKG [facility] [address] [place] [address] 12 Lead EKG 06/05/24 1804 MR#: [id number] Acct: [id number] Name: CEDRIC HOPE Rep #: [id number] : 1995 28 From: Papa Cordero MD Attending Dr: Status: DEP ER Ordering Dr: Spencer Dawson MD Date: 06/05/24 Location: ED Sex: F C Admitted: Test Reason : Blood Pressure : */* mmHG Vent. Rate : 77 BPM Atrial Rate : 77 BPM P-R Int : 152 ms QRS Dur : 90 ms QT Int : 382 ms P-R-T Axes : 50 16 19 degrees QTcB Int : 432 ms Normal sinus rhythm Normal ECG Confirmed by PAPA CORDERO MD ([id number]), marketing editor BANDAR DAWSON ([id number]) on 06/06/2024 8:18:46 AM Referred By: Confirmed By: PAPA CORDERO MD 06/06/24 0818 Date Papa Cordero MD CC: Dr. Alecia Rogers MD; Dr. Spencer Dawson MD Signed Normal [facility] Basic Metabolic Profile (BMP )on 06-05-2024 BUN/CRE 20.9 RATIO High -20 [facility] Comment on above: Order Comment: 'TROP ' Serial specimen #1, #2 or #3: 1 Performed By: #### L 100.0100, L501.4020, L500.2500 #### [facility] [address] [place], [address] CA,Total 8.9 mg/dL Normal 8.5-10.1 [facility] Comment on above: Order Comment: 'TROP ' Serial specimen #1, #2 or #3: 1 Performed By: #### L 100.0100, L501.4020, L500.2500 #### [facility] [address] [place], [address] Chloride [Moles/Vol] 106 mmol/L Normal 98-107 [facility] Comment on above: Order Comment: 'TROP ' Serial specimen #1, #2 or #3: 1 Performed By: #### L 100.0100, L501.4020, L500.2500 #### [facility] [address] [place], [address] CO2 [Moles/Vol] 29.0 mmol/L Normal 21.0-32.0 [facility] Comment on above: Order Comment: 'TROP ' Serial specimen #1, #2 or #3: 1 Performed By: #### L 100.0100, L501.4020, L500.2500 #### [facility] [address] [place], [address] Creatinine [Mass/Vol] 0.67 mg/dL Normal 0.55-1.02 [facility] Comment on above: Order Comment: 'TROP ' Serial specimen #1, #2 or #3: 1 Result Comment: The validity of the calculated GFR GFRAA in patients over 70 years has not been determined. Clinical correlation is essential. Performed By: #### L 100.0100, L501.4020, L500.2500 #### [facility] [address] [place], [address] ECRCL 172.23 ml/min Normal [facility] Comment on above: Order Comment: 'TROP ' Serial specimen #1, #2 or #3: 1 Performed By: #### L 100.0100, L501.4020, L500.2500 #### [facility] [address] [place], [address] EST GFR - AA 136 mL/min Normal >60 [facility] Comment on above: Order Comment: 'TROP ' Serial specimen #1, #2 or #3: 1 Result Comment: Afri can Swedish GFR Calc Performed By: #### L 100.0100, L501.4020, L500.2500 #### [facility] [address] [place], [address] GAP 7 Normal 5-15 [facility] Comment on above: Order Comment: 'TROP ' Serial specimen #1, #2 or #3: 1 Performed By: #### L 100.0100, L501.4020, L500.2500 #### [facility] [address] [place], [address] GFR/1.73 sq M.predicted among non-blacks MDRD (S/P/Bld) [Vol rate/Area] 112 mL/min/{1.73_m2} Normal >60 [facility] Comment on above: Order Comment: 'TROP ' Serial specimen #1, #2 or #3: 1 Result Comment: Non- GFR Calc Performed By: #### L 100.0100, L501.4020, L500.2500 #### [facility] [address] [place], [address] Glucose [Mass/Vol] 110 mg/dL High 74-106 [facility] Comment on above: Order Comment: 'TROP ' Serial specimen #1, #2 or #3: 1 Result Comment: Fast ing Glucose result from 100 to 125 mg/dL suggests IMPAIRED HOMEOSTASIS per A.D.A. criteria. Performed By: #### L 100.0100, L501.4020, L500.2500 #### [facility] [address] [place], [address] Potassium [Moles/Vol] 3.6 mmol/L Normal 3.5-5.1 [facility] Comment on above: Order Comment: 'TROP ' Serial specimen #1, #2 or #3: 1 Performed By: #### L 100.0100, L501.4020, L500.2500 #### [facility] [address] [place], [address] Sodium [Moles/Vol] 141 mmol/L Normal 136-145 [facility] Comment on above: Order Comment: 'TROP ' Serial specimen #1, #2 or #3: 1 Performed By: #### L 100.0100, L501.4020, L500.2500 #### [facility] [address] [place], [address] Urea nitrogen [Mass/Vol] 14 mg/dL Normal 7-18 [facility] Comment on above: Order Comment: 'TROP ' Serial specimen #1, #2 or #3: 1 Performed By: #### L 100.0100, L501.4020, L500.2500 #### [facility] [address] [place], [address] CBC W/Diff, Automatedon 05-18 Absolute Lymph 2.05 X10 3/uL Normal 0.83-4.51 [facility] Comment on above: Performed By: #### L 100.0100, L501.4020, L500.2500 #### [facility] [address] [place], [address] Absolute Neut 6.5 X10 3/uL Normal 2.0-7.7 [facility] Comment on above: Performed By: #### L 100.0100, L501.4020, L500.2500 #### [facility] [address] [place], [place], [address] Basophils/100 WBC (Bld) 0.4 % Normal 0-1 [facility] Comment on above: Performed By: #### L 100.0100, L501.4020, L500.2500 #### [facility] [address] [place], [address] Eosinophils/100 WBC (Bld) 2.0 % Normal 0-5 [facility] Comment on above: Performed By: #### L 100.0100, L501.4020, L500.2500 #### [facility] [address] [place], [address] Erythrocyte distribution width (RBC) [Ratio] 15.8 % High 11.6-14.6 [facility] Comment on above: Performed By: #### L 100.0100, L501.4020, L500.2500 #### [facility] [address] [place], [address] Hematocrit (Bld) [Volume fraction] 38.1 % Normal 37-47 [facility] Comment on above: Performed By: #### L 100.0100, L501.4020, L500.2500 #### [facility] [address] [place], [address] Hemoglobin (Bld) [Mass/Vol] 11.9 g/dL Low 12.0-15.0 [facility] Comment on above: Performed By: #### L 100.0100, L501.4020, L500.2500 #### [facility] [address] [place], [address] IG% 0.400 Normal 0.0-0.9 [facility] Comment on above: Result Comment: IG% - Immature Granulocytes (promyelocytes, myelocytes and metamyelocytes) > 1% indicates that a LEFT SHIFT is Present. Performed By: #### L 100.0100, L501.4020, L500.2500 #### [facility] [address] [place], [address] Lymphocytes/100 WBC (Bld) 22.0 % Normal 19-41 [facility] Comment on above: Performed By: #### L 100.0100, L501.4020, L500.2500 #### [facility] [address] [place], [address] MCH (RBC) [Entitic mass] 24.6 pg Low 27.0-32.0 [facility] Comment on above: Performed By: #### L 100.0100, L501.4020, L500.2500 #### [facility] [address] [place], [address] MCHC (RBC) [Mass/Vol] 31.2 g/dL Low 32-36 [facility] Comment on above: Performed By: #### L 100.0100, L501.4020, L500.2500 #### [facility] [address] [place], [address] MCV (RBC) [Entitic vol] 78.7 fL Low 81-99 [facility] Comment on above: Performed By: #### L 100.0100, L501.4020, L500.2500 #### [facility] [address] [place], [address] Monocytes/100 WBC (Bld) 5.3 % Normal 0-10 [facility] Comment on above: Performed By: #### L 100.0100, L501.4020, L500.2500 #### [facility] [address] [place], [address] Neutrophils/100 WBC (Bld) 69.9 % Normal 47-70 [facility] Comment on above: Performed By: #### L 100.0100, L501.4020, L500.2500 #### [facility] [address] [place], [address] Nucleated RBC (Bld) [#/Vol] 0 10*3/uL Normal 0-5 [facility] Comment on above: Performed By: #### L 100.0100, L501.4020, L500.2500 #### [facility] [address] [place], [address] Platelet mean volume (Bld) [Entitic vol] 10.3 fL Normal 6.2-12.0 [facility] Comment on above: Performed By: #### L 100.0100, L501.4020, L500.2500 #### [facility] [address] [place], [address] Platelets (Bld) [#/Vol] 287 10*3/uL Normal 150-450 [facility] Comment on above: Performed By: #### L 100.0100, L501.4020, L500.2500 #### [facility] [address] [place], [address] RBC (Bld) [#/Vol] 4.84 10*6/uL Normal 4.2-5.4 [facility] Comment on above: Performed By: #### L 100.0100, L501.4020, L500.2500 #### [facility] [address] [place], [address] RDW SD 44.4 fl High 35.1-43.9 [facility] Comment on above: Performed By: #### L 100.0100, L501.4020, L500.2500 #### [facility] [address] [place], [address] WBC (Bld) [#/Vol] 9.3 10*3/uL Normal 4.4-11.0 [facility] Comment on above: Performed By: #### L 100.0100, L501.4020, L500.2500 #### [facility] [address] [place], [address] Chest 1 View (Portable)on Chest 1 View (Portable) [facility] Services [address] [place] [address] Chest 1 View (Portable) MR#: [id number] Acct: [id number] Name: CEDRIC HOPE Rep #: [id number] : 1995 F 28 From: Kishore Willams MD PCP: Dr. Alecia Rogers MD Status: PRE ER Study: Chest 1 View (Portable) Date of Exam: 06/05/24 Exam# [id number] Ordering Dr: [place] [id number] STUDY: X-RAY CHEST REASON FOR EXAM: Female, 28 years old. chest pain TECHNIQUE: AP portable COMPARISON: February 02, 2024 FINDINGS: The lungs are clear and expanded. There is no demonstrated pleural abnormality. Normal size heart. Normal mediastinum and eduar. Normal visualized pulmonary arteries. Normal visualized aortic arch and descending thoracic aorta. Normal visualized thoracic spine. Normal visualized ribs, clavicles, and shoulders. There is no demonstrated abnormality of the visualized soft tissue structures of the upper abdomen. No significant change since prior exam RAD/Chest 1 View (Portable) IMPRESSION: Normal x-ray examination of the chest. Electronically Signed: Kishore Willams MD at 18:26 EST , CC: Dr. Alecia Rogers MD; Dr. Spencer Dawson MD Deicer Finisher: Signed Normal [facility] Emergency Department Summary on 06-05-2024 Emergency Department Summary [facility] Medical Records Department [address] [place] [address] Emergency Department Summary 06/05/24 MR#: [id number] Acct: [id number] Name: CEDRIC HOPE Rep #: [id number] : 1995 28 From: Spencer Dawson MD PCP: Dr. Alecia Rogers MD Status:DEP ER Location: ED HPI History of Present Illness Chief Complaint: Palpitations Informant: patient Onset/Context/Timing Onset: Today and Yesterday Activity at onset: gradual Timing: Intermittent Current Severity: Mild Maximum Severity: Mild Narrative Narrative: 28-year-old female history of depression and reflux. Said recently has been from her are going through divorce. She has been anxious about that. She started working out. And then Tuesday night went out with friends and drank she typically does not drink. States has been more anxious and having palpitations. No chest pain. No shortness of breath. No leg pain or swelling. No history of DVT or PE. No hemoptysis. No recent travel, surgery or immobilization. Prior Similar Symptoms: Yes Recent Illness/Hospitalization : No CVD Risk Factors: Negative for Hypertension, Diabetes or Hypercholesterolemia PE Risk Factors: Negative for Recent Travel/Surgery, Recent Immobilization, Prior DVT or PE, Cancer or OCP + Smoking + >/=35 TAD Risk Factors: Negative for Marfan's Syndrome PFSH PFS Medical History Ulcer of gingiva Depression Anxiety Diabetes Anemia Back pain Gastric reflux Non-smoker CPAP (continuous positive airway pressure) dependence Hypertension Chest pain hypertension History of EKG delivery delivered depression Lab test positive for detection of COVID-19 virus LUIS (obstructive sleep apnea) Infertility Panic attacks Bipolar 1 disorder Asthma Hemorrhoids Home Medications ???Medication ???Instructions ???Recorded ???Last Taken ???Type metoprolol tartrate 25 mg tablet 25 mg PO QDAY 01/04/24 Unknown History pantoprazole 40 mg tablet,delayed 40 mg PO DAILY #30 tabs 02/02/24 Unknown Rx release trazodone 50 mg tablet 50 mg PO QHS PRN insomnia #90 tabs 06/01/24 Unknown Rx venlafaxine 150 mg 150 mg PO QAM #90 caps 06/01/24 Unknown Rx capsule,extended release 24 hr Allergy/AdvReac Type Severity Reaction Status Date / Time No Known Allergies Allergy Verified 06/05/24 17:29 Family History Father Brain tumor (benign) Depression CAD (coronary artery disease) Grandmother Hypertension Hyperlipemia Depression Mother Allergies Grandfather Asthma COPD (chronic obstructive pulmonary disease) Surgical History S/P laparoscopic cholecystectomy H/O oral surgery Hx of section Social History household members: family current occupational status: employed 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 Palpitations. No recent illness. Constitutional Constitutional ED: Denies chills or fever(s) Eyes Eyes: Reports none ENT ENT ED: Denies ear pain Cardiovascular Cardiovascular: Reports as per HPI, palpitations and racing heartbeat; Denies chest pain Respiratory/Chest Respiratory/Chest: Denies cough or dyspnea Gastrointestinal Gastrointestinal: Denies abdominal pain Genitourinary Genitourinary ED: Denies dysuria Musculoskeletal Musculoskeletal: Denies arthralgias Integumentary Denies abscess Neurologic Neurologic: Denies headache(s) Psychiatric Psychiatric: Denies anxiety, depression or suicidal ideation Endocrine Endocrinology: Denies cold intolerance Hematologic/Lymphatic Hematologic/Lymphatic: Denies easy bleeding Allergic/Immunologic Allergic/Immunologic ED: Denies mouth swelling EXAM Physical Exam Narrative Exam Narrative: Well-appearing 28-year-old female. Vital signs are stable afebrile. Pulse ox 100% on room air no signs of hypoxia. Heart rate 99. She does not look septic toxic or any distress. H EENT exam unremarkable. Neck nontender no JVD. No lymphadenopathy. Lungs clear to auscultation bilaterally. Heart regular rate and rhythm rate about 95 no murmur. Chest wall and ribs nontender. Abdomen soft nontender. Back nontender. Neurologically she is awake and alert no focal motor deficits. Moving all 4 extremities. Nontender without edema or cords. Calves (more content not included)... Normal [facility] L501.4020on 06-05-2024 TROPONIN-I HS 4 pg/mL Normal 3.0-54.0 [facility] Comment on above: Order Comment: 'TROP ' Serial specimen #1, #2 or #3: 1 Result Comment: Sandhya travis Note: New Test Units and Gender Specific Reference Ranges. For more information see Policy Stat Procedure [place] High Sensitivity Troponin (TNIH) and attachments. Performed By: #### L 100.0100, L501.4020, L500.2500 #### [facility] [address] [place], [place], [address] MR/BMS.BPon 06-01-2024 MR/BMS.[address], [address] [place] [id number] OFFICE VISIT Date of Service: 06/01/24 MR#: [id number] Acct: [id number] Name: CEDRIC HOPE Rep #: [id number] : 1995 Provider: JANEL jaffe Age/Sex: 28/F Location: [facility] Status: Signed Intake Vital Signs 05/04/24 08:30 06/01/24 08:29 Height 5 ft 4 in 5 ft 4 in BP Intake Visit Reasons: 4wfu Allergies No Known Allergies Allergy (Verified 03/27/24 08:50) PFSH Medical History Ulcer of gingiva Depression Anxiety Diabetes Anemia Back pain Gastric reflux Non-smoker CPAP (continuous positive airway pressure) dependence Hypertension Chest pain hypertension History of EKG delivery delivered depression Lab test positive for detection of COVID-19 virus LUIS (obstructive sleep apnea) Infertility Panic attacks Bipolar 1 disorder Asthma Hemorrhoids Surgical History S/P laparoscopic cholecystectomy H/O oral surgery Hx of section Family History Father Brain tumor (benign) Depression CAD (coronary artery disease) Grandmother Hypertension Hyperlipemia Depression Mother Allergies Grandfather Asthma COPD (chronic obstructive pulmonary disease) Social History household members: family current occupational status: employed 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 Patient reports she has been living separately from her and sharing custody of their child with him. Does report anxiety has improved. Has been doing more things for herself and working on going to the gym and being more active. Was feeling more nervous about having to live alone when her children are with their other parent but feels she has dome well with this. Does admit to having frequent crying spells. Does report that her mental health is her priority and feels it has improved exponentially. Admits to some depressive symptoms due to separation which came about due to her mental health causing a riff in their relationship. Feels she is putting in the work and he isn't giving her any minor. Has been doing therapy and making sure she is working on her mental health continuously. Has been journaling and praying. Reports she has been sleeping better. Has been able to communicate her feeling better. Denies SI/HI. Denies any panic attacks since last appointment. This tele-medicine visit was performed via audio/video technology. Previous similar episode: Yes Age of first onset of symptoms: 11-20 years Review of Systems Constitutional Reports: change in weight (has lost 20 pounds ); Denies: fever(s), chills or fatigue Eyes Denies: change in vision or blurry vision Ears, Nose, Mouth, Throat Denies: throat pain or neck pain Cardiovascular Reports: dyspnea; Denies: chest pain or palpitations Respiratory Reports: dyspnea; Denies: wheezing Gastrointestinal Reports: heartburn and bloating; Denies: abdominal pain, nausea, vomiting, diarrhea or constipation Genitourinary Denies: dysuria, urinary frequency or urinary urgency Musculoskeletal Reports: back pain; Denies: neck pain Integumentary/Breast Denies: rash, pruritus or erythema Neurological Reports: headache(s) Psychiatric Denies: anxiety, mood swings, panic attacks, change in sleep pattern, hopelessness, loss of interest, irritability, paranoia, memory loss, difficulty concentrating, visual hallucinations, auditory hallucinations, suicidal ideation or homicidal ideation Endocrine Denies: fatigue Hematologic/Lymphatic Denies: easy bruising Allergic/Immunologic Denies: wheezing Exam Mental Status Exam - Psych Appearance casually dressed and adequately groomed Attitude cooperative and calm Activity/Motor Behavior MSE activity/motor behavior finding no adventitious movements and appropriate eye contact Speech regular rate, regular volume and regular prosody Mood euythmic Affect full range Thought Process linear, logical and coherent Thought Content no delusions and no hallucinations Suicidal Ideation none Homicidal Ideation none Attention (more content not included)... [facility] Visit ([facility] ) CEDRIC HOPE ([id number]) 1995 F Date Time Provider Department [facility] 7[facility] During your visit today, we recorded the following information about you: Temperature Pulse Respiration Blood pressure 99 degrees 76/minute 18/minute 140/89 Weight 134.2 kg Saad Mazariegos APRN.CNP 05/16/2024 8:09 PM Signed [facility] [address] [place], [place] [address] Emergency Department Diagnosis: Assessment SINUSITIS: You have sinusitis, an infection of the sinus cavities around the nose. This infection usually follows a respiratory illness; it can also be related to allergies, changes in atmospheric pressure (flying, diving), or anything that blocks nasal drainage. Symptoms include: headache, facial pain, a thick nasal discharge, congestion, and cough. The treatment includes antibiotic therapy, increasing oral fluids, and pain medication if needed. Nose spray decongestants (Afrin, Nikos-Synephrine) and oral decongestants may be needed to reduce congestion and drainage. Rarely the sinus must be irrigated to remove the infected material. Sinusitis can lead to serious complications by spreading to other areas such as the eye or brain. Please call your doctor or return here right away if you have any of the following more serious symptoms: Unusual swelling around the eye or trouble seeing. Increasing pain, severe headache, or toothache. Nausea, vomiting, or unusual drowsiness. Saad Mazariegos APRN.[employer]NER 05/16/2024 8:13 PM Signed This note was created using [employer] Subjective Cedric Hope is a 28 year old female. HPI Patient complains of 5 days of productive cough and along with sinus pain and pressure. She denies any fever specifically but does note chills and diaphoresis. She does note a history of sinus infections and states that this feels typical for her. Review of Systems Constitutional: Positive for chills and diaphoresis. HENT: Positive for congestion, sinus pressure and sinus pain. Respiratory: Positive for cough. Objective BP 140/89 Pulse 76 Temp 37.2 ?C (99 ?F) Resp 18 Wt 134.2 kg (295 lb 13.7 oz) LMP 01/02/2021 (Exact Date) SpO2 98% BMI 52.41 kg/m? Physical Exam Vitals and nursing note reviewed. Constitutional: General: She is not in acute distress. Appearance: Normal appearance. She is not ill-appearing. HENT: Head: Normocephalic. Mouth/Throat: Mouth: Mucous membranes are moist. Eyes: Conjunctiva/sclera: Conjunctivae normal. Cardiovascular: Rate and Rhythm: Normal rate and regular rhythm. Pulmonary: Effort: Pulmonary effort is normal. Breath sounds: Normal breath sounds. Musculoskeletal: General: Normal range of motion. Cervical back: Normal range of motion. Skin: General: Skin is warm and dry. Neurological: General: No focal deficit present. Mental Status: She is alert. Psychiatric: Mood and Affect: Mood normal. Behavior: Behavior normal. Assessment and Plan ASSESSMENT/PLAN: 1. Bacterial sinusitis - ICD9: 473.9, 041.9, ICD10: J32.9, B96.89 -As patient notes 5 days of sinus pain and pressure along with productive cough she will be started on doxycycline. She also notes yeast infections post antibiotic use and was given a prescription for fluconazole. She is to follow-up with PCP if symptoms are not improving. - DOXYCYCLINE MONOHYDRATE 100 MG CAPSULE - FLUCONAZOLE 150 MG TABLET Saad Mazariegos APRN.[employer]NER Allergies As of Date: 05/16/2024 (No Known Allergies) Date Reviewed: 05/16/2024 Reviewed by: Deborah Keys MA - Fully Assessed Reason for Visit: Cough [28] Cmt: Chest congestion, sinus congestion x5 days Primary Visit Diagnosis:Bacterial sinusitis [J32.9, B96.89] Order(s):doxycycline monohydrate (MONODOX) 100 mg capsuleTake 1 capsule by mouth two times a day for 5 days.Disp: 10 capsuleRfl: 0 fluconazole (DIFLUCAN) 150 mg tabletTake 1 tablet by mouth one time only for 1 dose. Repeat in 3 days as needed.Disp: 2 tabletRfl: 0 Prescriptions as of 05/16/2024 - venlafaxine (EFFEXOR) 75 mg tablet TAKE 1 TABLET BY MOUTH 2 TIMES A DAY IN THE MORNING AND EVENING - traZODone (DESYREL) 50 mg tablet Take 50 mg by mouth at bedtime as needed. - pantoprazole DR (PROTONIX) 40 mg tablet Take 40 mg by mouth once daily. - furosemide (LASIX) 20 mg tablet Take 20 mg by mouth. - metoprolol tartrate, short acting, (LOPRESSOR) 25 mg tablet TAKE 1/2 TABLET BY MOUTH 2 TIMES A DAY - doxycycline monohydrate (MONODOX) 100 mg capsule Take 1 capsule by mouth two times a day for 5 days. - fluconazole (DIFLUCAN) 150 mg tablet Take 1 tablet by mouth one time only for 1 dose. Repeat in 3 days as needed. - SPRINTEC 0.25-35 mg-mcg per tablet - omeprazole (PRILOSEC) 20 mg capsule Take 20 mg by mouth once daily. - busPIRone (BUSPAR) 10 m (more content not included)... Normal [facility] MR/BMS.BPon 10-18-2024 MR/BMS.BP [facility] [address], [address] [place] [address] OFFICE VISIT Date of Service: 05/04/24 MR#: [id number] Acct: [id number] Name: CEDRIC HOPE Rep #: [id number] : 1995 Provider: JANEL jaffe Age/Sex: 28/F Location: [facility] Status: Signed Intake Vital Signs 03/23/24 07:58 04/17/24 07:35 05/04/24 08:30 Height 5 ft 4 in 5 ft 4 in 5 ft 4 in BP Intake Visit Reasons: 6wfu Allergies No Known Allergies Allergy (Verified 03/27/24 08:50) PFSH Medical History Ulcer of gingiva Depression Anxiety Diabetes Anemia Back pain Gastric reflux Non-smoker CPAP (continuous positive airway pressure) dependence Hypertension Chest pain hypertension History of EKG delivery delivered depression Lab test positive for detection of COVID-19 virus LUIS (obstructive sleep apnea) Infertility Panic attacks Bipolar 1 disorder Asthma Hemorrhoids Surgical History S/P laparoscopic cholecystectomy H/O oral surgery Hx of section Family History Father Brain tumor (benign) Depression CAD (coronary artery disease) Grandmother Hypertension Hyperlipemia Depression Mother Allergies Grandfather Asthma COPD (chronic obstructive pulmonary disease) Social History household members: family current occupational status: employed 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 Does states that things with her are not doing well. He is wanting her to move out and is wanting a dissolution but the patient and him are not agreeing with the terms of their custody of their children so she is going to get a welder gas tungsten arc to help with this. Did not start taking Vraylar as she was nervous about side effects of the medication. Has been crying daily related to situational factors. Has been feeling more depressed with everything going on. Has been sleeping well with the use of trazodone. Has been getting 7 hours of sleep per night. Does feel drained when she is waking up in the morning but is unsure if this is due to being more tearful recently. Has been snoozing her alarm more often. Is struggling more with energy. Has been snacking more and eating one meal per day. Had initially lost 20 pounds in 10 days related to stress and has gained some of it back. Has been feeling more anxious about living alone and fearing something bad happening to her. Is fearful of the unknown. Does not feel anxious all the time. Has not woken up in the morning in a panic like she has in the past. Has not been having nightmares. Denies SI/HI. Does feel she cannot live without her and they have been for 4 years. Does feel that a lot of her negative life experiences she has turned them into her treating her poorly. Previous similar episode: Yes Age of first onset of symptoms: 11-20 years Review of Systems Constitutional Reports: change in weight (has lost 20 pounds ) and fatigue; Denies: fever(s) or chills Eyes Denies: change in vision or blurry vision Ears, Nose, Mouth, Throat Denies: throat pain or neck pain Cardiovascular Reports: dyspnea; Denies: chest pain or palpitations Respiratory Reports: dyspnea; Denies: wheezing Gastrointestinal Reports: heartburn and bloating; Denies: abdominal pain, nausea, vomiting, diarrhea or constipation Genitourinary Denies: dysuria, urinary frequency or urinary urgency Musculoskeletal Reports: back pain; Denies: neck pain Integumentary/Breast Denies: rash, pruritus or erythema Neurological Reports: headache(s) Psychiatric Reports: anxiety, mood swings, hopelessness, loss of interest and irritability; Denies: panic attacks, change in sleep pattern, paranoia, memory loss, difficulty concentrating, visual hallucinations, auditory hallucinations, suicidal ideation or homicidal ideation Endocrine Reports: fatigue Hematologic/Lymphatic Denies: easy bruising Allergic/Immunologic Denies: wheezing Exam Mental Status Exam - Psych Appearance casually dressed and adequately groomed Attitude cooperative and calm Activity/Motor Behavior MSE activity/ (more content not included)... Normal [facility] MR/BMS.BPon 04-17-2024 MR/BMS.BP [facility] [address], [address] [place] [address] OFFICE VISIT Date of Service: 04/17/24 MR#: [id number] Acct: [id number] Name: CEDRIC HOPE Rep #: [id number] : 1995 Provider: JANEL jaffe Age/Sex: 28/F Location[place] [facility] [place] Status: Signed Intake Vital Signs 03/27/24 08:51 04/17/24 07:35 Height 5 ft 4 in 5 ft 4 in BP Intake Visit Reasons: DEPRESSION Allergies No Known Allergies Allergy (Verified 03/27/24 08:50) PFSH Medical History Ulcer of gingiva Depression Anxiety Diabetes Anemia Back pain Gastric reflux Non-smoker CPAP (continuous positive airway pressure) dependence Hypertension Chest pain hypertension History of EKG delivery delivered depression Lab test positive for detection of COVID-19 virus LUIS (obstructive sleep apnea) Infertility Panic attacks Bipolar 1 disorder Asthma Hemorrhoids Surgical History S/P laparoscopic cholecystectomy H/O oral surgery Hx of section Family History Father Brain tumor (benign) Depression CAD (coronary artery disease) Grandmother Hypertension Hyperlipemia Depression Mother Allergies Grandfather Asthma COPD (chronic obstructive pulmonary disease) Social History household members: family current occupational status: employed 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 Patient states she has been struggling within her marriage as her says he is not happy with her because she takes out all of her emotions on him. They are still living together but are not currently together. Reports this all started this past Tuesday. Has still been seeing a therapist for the past month once per week but is planning to increase to twice weekly. Has lost 10 pounds since Tuesday and is unable to eat. Is eating very little and is feeling an increase in nausea. Has not been sleeping well. Is waking up multiple times per night. Sometimes struggles to fall asleep at night. Denies nightmares. Does struggle with having patience and feeling like she is constantly snapping at her and children. Reports she feels like a failure and like she is alone. Has been feeling more depressed due to current life stressors with her spouse. Denies SI/HI as she is afraid to but sometimes thinks things would be better is she is gone. Admits to feelings of hopelessness, worthlessness, and guilt all the time. Previous similar episode: Yes Age of first onset of symptoms: 11-20 years Review of Systems Constitutional Reports: change in weight (has lost 10 pounds ) and fatigue; Denies: fever(s) or chills Eyes Denies: change in vision or blurry vision Ears, Nose, Mouth, Throat Denies: throat pain or neck pain Cardiovascular Reports: dyspnea; Denies: chest pain or palpitations Respiratory Reports: dyspnea; Denies: wheezing Gastrointestinal Reports: heartburn and bloating; Denies: abdominal pain, nausea, vomiting, diarrhea or constipation Genitourinary Denies: dysuria, urinary frequency or urinary urgency Musculoskeletal Reports: back pain; Denies: neck pain Integumentary/Breast Denies: rash, pruritus or erythema Neurological Reports: headache(s) Psychiatric Reports: anxiety, mood swings, change in sleep pattern, hopelessness, loss of interest and irritability; Denies: paranoia, memory loss, difficulty concentrating, visual hallucinations, auditory hallucinations, suicidal ideation or homicidal ideation Endocrine Reports: fatigue Hematologic/Lymphatic Denies: easy bruising Allergic/Immunologic Denies: wheezing Exam Mental Status Exam - Psych Appearance casually dressed and adequately groomed Attitude cooperative and calm Activity/Motor Behavior MSE activity/motor behavior finding no adventitious movements and appropriate eye contact Speech regular rate, regular volume and regular prosody Mood sad and anxious Affect sad and anxious Thought Process linear, logical and coherent Thought Content no delusions and no hallucinations Suicidal Ideation none Homicidal Ideation none Attent (more content not included)... Normal [facility] PAP I-G w/rfx hrHPV-Aptimaon 03-29-2024 ADEQ Comment Normal . [facility] Comment on above: Order Comment: Jeannette jang Comment: [id number] Comment: No. of containers..01 ThinPrep Vial Result Comment: Sati sfactory for evaluation. No endocervical component is identified. Performed By: #### L 501.9985, L100.0100 #### [facility] [address] [place], [place], [id number] COMM . Normal . [facility] Comment on above: Order Comment: Jeannette jang Comment: [id number] Comment: No. of containers..01 ThinPrep Vial Performed By: #### L [id number], L100.0100 #### [facility] [address] [place], [place], [id number] COMMENT Comment Normal . [facility] Comment on above: Order Comment: Jeannette jang Comment: [id number] Comment: No. of containers..01 ThinPrep Vial Result Comment: This liquid based ThinPrep(R) pap test was screened with the use of an image guided system. Performed By: #### L 501.9985, L100.0100 #### [facility] [address] [place], [place], [address] DIAG Comment Normal . [facility] Comment on above: Order Comment: Jeannette jang Comment: [id number] Comment: No. of containers..01 ThinPrep Vial Result Comment: NEGA TIVE FOR INTRAEPITHELIAL LESION OR MALIGNANCY. Performed By: #### L 501.9985, L100.0100 #### [facility] [address] [place], [place], [id number] HPV RFLX Comment Normal . [facility] Comment on above: Order Comment: Speci men Comment: [id number] Comment: No. of containers..01 ThinPrep Vial Result Comment: The HPV DNA reflex criteria were not met with this specimen result therefore, no HPV testing was performed. Performed at: [address] [id number] Occupational Therapy Specialist: Tanika Boyd MD, Phone: [phone] Performed By: #### L [id number], L100.0100 #### [facility] [address] [place], [place], [id number] PAPSMR Comment Normal . [facility] Comment on above: Order Comment: Speci men Comment: [id number] Comment: No. of containers..01 ThinPrep Vial Result Comment: The Pap smear is a screening test designed to aid in the detection of premalignant and malignant conditions of the uterine cervix. It is not a diagnostic procedure and should not be used as the sole means of detecting cervical cancer. Both false-positive and false-negative reports do occur. Performed By: #### L [id number], L100.0100 #### [facility] [address] [place], [place], [id number] PERFORM Comment Normal . [facility] Comment on above: Order Comment: Speci men Comment: [id number] Comment: No. of containers..01 ThinPrep Vial Result Comment: Rosio Whitley, Financial Director (ASCP) Performed By: #### L [id number], L100.0100 #### [facility] [address] [place], [address] Telecommunications Professional Office Visit Reporton 03-27-2024 Telecommunications Professional Office Visit Report [facility] [address], [address] [place] [address] OFFICE VISIT Date of Service: 03/27/24 MR#: [id number] Acct: [id number] Name: CEDRIC HOPE Rep #: [id number] : 1995 Provider: JANEL Esposito Age/Sex: 28/F [place] [facility] [place]: Signed Intake Vital Signs 02/07/24 10:37 03/23/24 07:58 03/27/24 08:51 Height 5 ft 4 in 5 ft 4 in 5 ft 4 in Weight: 310 lb BMI 53.1 BP 120/61 Intake Visit Reasons: Annual ([employer]) Chief Complaint: annual, weight management, abn periods Psychology Physician Required: No Is patient in pain?: No Allergies No Known Allergies Allergy (Verified 03/27/24 08:50) Medications ???Medication ???Instructions ???Recorded ???Confirmed ???Type metoprolol tartrate 25 mg tablet 25 mg PO QDAY 01/04/24 03/27/24 History pantoprazole 40 mg tablet,delayed 40 mg PO DAILY #30 tabs 02/02/24 03/27/24 Rx release buspirone 5 mg tablet 5 mg PO BID #60 tabs 03/23/24 03/27/24 Rx trazodone 50 mg tablet 50 mg PO QHS PRN insomnia #90 tabs 03/23/24 03/27/24 Rx venlafaxine 75 mg tablet 150 mg (2 x 75 mg) PO DAILY #180 03/23/24 03/27/24 Rx tabs Is last menstrual period known: Yes Last Menstrual Period: 11/16/23 Post menopausal: No Patient : No : No Control Method: none PFSH Medical History Ulcer of gingiva Depression Anxiety Diabetes Anemia Back pain Gastric reflux Non-smoker CPAP (continuous positive airway pressure) dependence Hypertension Chest pain hypertension History of EKG delivery delivered depression Lab test positive for detection of COVID-19 virus LUIS (obstructive sleep apnea) Infertility Panic attacks Bipolar 1 disorder Asthma Hemorrhoids Surgical History S/P laparoscopic cholecystectomy H/O oral surgery Hx of section Family History Father Brain tumor (benign) Depression CAD (coronary artery disease) Grandmother Hypertension Hyperlipemia Depression Mother Allergies Grandfather Asthma COPD (chronic obstructive pulmonary disease) Social History household members: family current occupational status: employed 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 Date Name GA/Weeks Outcome Route Bth Weight Infant Gen Labor Lgth Anesthesia Del Locatn Provider FOB 04/12/17 Sondra 40 live - full term 8lbs 14oz Female 23 hours epidural W CH RR Rui 10/01/21 Jelani 39 live - full term Male [facility] rcanthony Delivery Date: 04/12/17 Last Updated by: Christine Ascencio AoD- failed induction; thick meconium- initially clear thick MSF by delivery Delivery Date: 10/01/21 Last Updated by: Leslie Gibbons [facility] GDMA2 HPI Encounter for routine gynecological examination Details: CEDRIC HOPE is a 28 year old who presents for annual exam. She reports she has been struggling with weight gain; she feels she has been gaining weight since she had her gallbladder out. She has noticed her menses have become irregular with this. tests at home negative. Last PAP: 2020; normal per patient. History of abnormal PAP: no Last mammogram: never History of abnormal mammogram: no Colon cancer screening: no Other preventative health care screenings: Dr. Rogers; PCP. Female Reproductive History Last Menstrual Period: 11/16/23 Cycle Length: 21-35 Bleeding Duration: 3 Questions: metorrhagia: No, sexually active: Yes, dyspareunia: No and PCB: No ROS Const Constitutional: Denies chills, fatigue, fever(s), headache(s) or weight loss Eyes Eyes: Denies change in vision ENT ENT: Denies dizziness Resp Resp: Denies cough GI GI: Denies abdominal pain, constipation or nausea : Denies difficulty voiding, dysuria, hematuria, nipple discharge, pelvic pain, prolapse symptoms, urinary incontinence, vaginal discharge, vaginal dryness, vaginal odor or vaginal pruritus Skin Skin/Breast: Denies alopecia, rash, breast mass, breast pain, breast skin changes or nipple discharge Neuro Neuro: Denies (more content not included)... Normal [facility] MR/BMS.BPon 03-23-2024 MR/BMS.BP [facility] [address], [address] [place] [address] OFFICE VISIT Date of Service: 03/23/24 MR#: [id number] Acct: [id number] Name: CEDRIC HOPE Rep #: [id number] : 1995 Provider: JANEL jaffe Age/Sex: 28/F Location[place] [facility] [place] Status: Signed Intake Vital Signs 02/07/24 10:37 03/23/24 07:58 Height 5 ft 4 in 5 ft 4 in BP Intake Visit Reasons: follow up Allergies No Known Allergies Allergy (Verified 02/02/24 18:43) PFSH Medical History Ulcer of gingiva Depression Anxiety Diabetes Anemia Back pain Gastric reflux Non-smoker CPAP (continuous positive airway pressure) dependence Hypertension Chest pain hypertension History of EKG delivery delivered depression Lab test positive for detection of COVID-19 virus LUIS (obstructive sleep apnea) Infertility Panic attacks Bipolar 1 disorder Asthma Hemorrhoids Surgical History S/P laparoscopic cholecystectomy H/O oral surgery Hx of section Family History (Updated 02/02/24 @ 19:[address] 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 Has been working on going to counseling. Has been trying to lose weight and feels frustrated with not being able to lose weight. Is working on changing her diet. Has been taking 75mg in the morning and 75 in the evening and has done so much better at this dose. Does feel she is doing well on the venlafaxine at this dose. Has been sleeping well and utilizing trazodone to help with sleep. Doesn't feel anxious as much bust feels when she isn't busy her mind will race and have a lot of anxious thoughts. Has not been having any panic attacks. Has been getting 7-8 hours per night and trying to get more on the weekends. Still feels she is tired at times and feels her energy is still low. Has not been feeling depressed. Denies SI/HI. Is not having issues falling asleep or staying asleep. Feels she does have an issue with binge eating in the past and choosing less healthy options for the past couple of year. Was never eating to the point of making herself sick. Feels that they hydroxyzine has not been as effective for her and she feels she is so tired in the morning. Previous similar episode: Yes Age of first onset of symptoms: 11-20 years Review of Systems Constitutional Reports: change in weight and fatigue; Denies: fever(s) or chills Eyes Denies: change in vision or blurry vision Ears, Nose, Mouth, Throat Denies: throat pain or neck pain Cardiovascular Reports: dyspnea; Denies: chest pain or palpitations Respiratory Reports: dyspnea; Denies: wheezing Gastrointestinal Reports: heartburn and bloating; Denies: abdominal pain, nausea, vomiting, diarrhea or constipation Genitourinary Denies: dysuria, urinary frequency or urinary urgency Musculoskeletal Reports: back pain; Denies: neck pain Integumentary/Breast Denies: rash, pruritus or erythema Neurological Reports: headache(s) Psychiatric Reports: anxiety and mood swings Endocrine Reports: fatigue Hematologic/Lymphatic Denies: easy bruising Allergic/Immunologic Denies: wheezing Exam Mental Status Exam - Psych Appearance casually dressed and adequately groomed Attitude cooperative and calm Activity/Motor Behavior MSE activity/motor behavior finding no adventitious movements and appropriate eye contact Speech regular rate, regular volume and regular prosody Mood euythmic Affect full range Thought Process linear, logical and coherent Thought Content no delusions and no hallucinations Suicidal Ideation none Homicidal Ideation none Attention impaired (per patient self report) Concentration impaired (per patient self report) Sensorium/Orientation awake, alert and oriented x3 Memory/Cognition impaired (per patient self (more content not included)... Normal [facility] ED Prov Noteon 03-12-2024 ED Prov Note HPI: 03/12/2024, Time: @NOWNR@ Cedric Roberto Hope is a 28 y.o. female presenting to the ED for bilateral leg swelling, beginning over the last few days ago. The complaint has been constant, moderate in severity, and worsened by nothing. No fever or chills but patient has been eating a lot of fast food over the weekend. No shortness of breath or chest pain ROS: Pertinent positives and negatives are stated within HPI, all other systems reviewed and are negative. PAST HISTORY Past Medical History: @[facility]@ Past Surgical History: has a past surgical history that includes Cholecystectomy. Social History: reports that she has quit smoking. Her smoking use included cigarettes. She has never used smokeless tobacco. She reports that she does not use drugs. Family History: family history is not on file. The patient's home medications have been reviewed. Allergies: Patient has no known allergies. ---- RESULTS --- All laboratory and radiology results have been personally reviewed by myself LABS: No results found for this or any previous visit. RADIOLOGY: Interpreted by Radiologist. No orders to display -- NURSING NOTES AND VITALS REVIEWED ---- The nursing notes within the ED encounter and vital signs as below have been reviewed. BP (!) 147/73 (BP Location: Left arm, Patient Position: Sitting) Pulse 76 Temp 98.1 degrees F (36.7 degrees C) (Temporal) Resp 18 Ht 5' 3 Wt 136.1 kg (300 lb) LMP 01/12/2024 (Approximate) SpO2 97% BMI 53.14 kg/m Oxygen Saturation Interpretation: Normal -----PHYSICAL EXAM Constitutional/General: Alert and oriented x3, well appearing, non toxic in NAD Head: NC/AT Eyes: PERRL, EOMI Mouth: Oropharynx clear, handling secretions, no trismus Neck: Supple, full ROM, no meningeal signs Pulmonary: Lungs clear to auscultation bilaterally, no wheezes, rales, or rhonchi. Not in respiratory distress Cardiovascular: Regular rate and rhythm, no murmurs, gallops, or rubs. 2+ distal pulses Abdomen: Soft, non tender, non distended, Extremities: Moves all extremities x 4. Warm and well perfused, bilateral pretibial pedal edema mild Skin: warm and dry without rash Neurologic: GCS 15, Psych: Normal Affect ------- ED COURSE/MEDICAL DECISION MAKING ----- Medications furosemide (LASIX) tablet 20 mg (has no administration in time range) Medical Decision Making: Will treat with Lasix for 3 days Counseling: The emergency provider has spoken with the patient and discussed today's results, in addition to providing specific details for the plan of care and counseling regarding the diagnosis and prognosis. Questions are answered at this time and they are agreeable with the plan. IMPRESSION AND DISPOSITION IMPRESSION 1. Peripheral edema 2. Venous insufficiency DISPOSITION Disposition: discharged to home Patient condition is stable Summation Patient Course: Stable ED Medications administered this visit: Medications furosemide (LASIX) tablet 20 mg (has no administration in time range) New Prescriptions from this visit: New Prescriptions furosemide (LASIX) 20 MG tablet Take 1 (one) tablet (20 mg total) by mouth daily for 3 days . Follow-up: Alecia Rogers MD [address] [facility] [address] In 3 days Final Impression: 1. Peripheral edema 2. Venous insufficiency (Please note that portions of this note were completed with a voice recognition program. Efforts were made to edit the dictations but occasionally words are mis-transcribed.) Stacey Shukla MD 03/12/24 1844 AUTHENTICATED BY STACEY SHUKLA, ON 03/12/2024 18:41:42 [facility] ED Prov Noteon 02-23-2024 ED Prov Note ED PROVIDER NOTE [facility] EMERGENCY DEPARTMENT NAME: Cedric Hope AGE: 28 y.o. : 1995 VISIT DATE: 02/23/2024 CSN: [id number] PCP: Alecia Rogers MD Chief Complaint Patient presents with Swallowed Foreign Body Chief complaint swallowed foreign body History of present illness this is a 28-year-old female who was eating salad with a plastic fork she believes that she was eating a but then accidentally swallowed a plastic prong of a fork feels a scratchy sensation to the right anterior neck. She is here without stridor or difficulty breathing or any breath sound issue. She comes here with a blood pressure 140/98 temp 97 pulse 98 respiratory 16 pulse ox 100% GCS is 15 airway breath sounds are intact. No stridor or trismus or drooling nor any coughing Past Medical History: Diagnosis Date Anxiety Past Surgical History: Procedure Laterality Date CHOLECYSTECTOMY History reviewed. No pertinent family history. Social History Socioeconomic History Marital status: Tobacco Use Smoking status: Former Types: Cigarettes Smokeless tobacco: Never Previous Medications Medication Sig hydrOXYzine (VISTARIL) 50 MG capsule Take 1 (one) capsule (50 mg total) by mouth at bedtime . metoprolol tartrate (LOPRESSOR) 25 MG tablet Take 0.5 (one-half) tablet (12.5 mg total) by mouth 2 (two) times a day . pantoprazole (PROTONIX) 40 MG tablet Take 1 (one) tablet (40 mg total) by mouth daily . traZODone (DESYREL) 50 MG tablet Take 1 (one) tablet (50 mg total) by mouth nightly as needed FOR INSOMNIA . venlafaxine (EFFEXOR) 37.5 MG tablet Take 1 (one) tablet (37.5 mg total) by mouth daily . No Known Allergies Review of Systems All other systems reviewed and are negative. Patient Vitals for the past 24 hrs: BP Temp Pulse Resp SpO2 02/23/242012 (!) 140/98 97.6 degrees F (36.4 degrees C) 98 16 98 % Physical Exam Vitals and nursing note reviewed. Exam conducted with a database manager present. Constitutional: Appearance: She is obese. HENT: Head: Normocephalic and atraumatic. Mouth/Throat: Mouth: Mucous membranes are moist. Pharynx: Oropharynx is clear. Eyes: Extraocular Movements: Extraocular movements intact. Pupils: Pupils are equal, round, and reactive to light. Cardiovascular: Rate and Rhythm: Normal rate and regular rhythm. Pulmonary: Effort: Pulmonary effort is normal. No respiratory distress. Breath sounds: Normal breath sounds. No stridor. No wheezing, rhonchi or rales. Chest: Chest wall: No tenderness. Abdominal: General: Abdomen is flat. Bowel sounds are normal. Skin: General: Skin is warm. Capillary Refill: Capillary refill takes less than 2 seconds. Neurological: Mental Status: She is alert. . Laboratory & Radiographic Imaging (if done): No results found for this visit on 02/23/24. XR Neck Soft Tissue Final Result 1. No radiopaque or radiolucent foreign body identified with plain-film evaluation. [employer] Workstation ID: [id number] Procedures Medical Decision Making Differential diagnosis #1 oropharyngeal abrasion #2 radiolucent radiopaque foreign body in the oropharynx #3 laryngeal spasm #4 unclear if she did swallowed foreign body Considering the above a soft tissue neck x-ray was done Amount and/or Complexity of Data Reviewed Radiology: ordered and independent interpretation performed. Details: Soft tissue neck was negative Discussion of management or test interpretation with external provider(s): Patient improved airway was intact she was observed here for 40 significant time she was discharged home stable I suspect she may have had a scratchy throat from something in the salad that was heart heart Clinical Impression: 1. Swallowed foreign body, initial encounter ED Disposition ED Disposition Discharge Condition Stable Comment Cedric Hope discharged to home/self care in stable condition. Follow-up Information 1. Alecai Rogers MD. Specialty: Internal Medicine [address] [place] [id number] Contact information for after-discharge care Follow-up information has not been specified. Bello Fish MD 02/24/24 0005 AUTHENTICATED BY BELLO FISH, ON 02/24/2024 00:05:03 [facility] XR SOFT TISSUE NECKon 2023 XR SOFT TISSUE NECK EXAMINATION: XR SOFT TISSUE NECK 02/23/2024 8:20 PM HISTORY: ORDERING SYSTEM PROVIDED HISTORY: Possible foreign body, TECHNOLOGIST PROVIDED HISTORY: Injury/Trauma Reason for Exam: Patient possibly swallowed a prong off a plastic fork Cancer History: N Surgery, Radiation History: , gallbladder Encounter Type: Initial Mechanism of Injury: Patient possibly swallowed a prong off a plastic fork ORDERING SYSTEM PROVIDED DIAGNOSIS CODES: FINDINGS: AP and lateral views of the neck were obtained utilizing soft tissue technique. There is straightening of the lower cervical spine. The prevertebral soft tissues and epiglottis have a normal appearance. Lung apices clear. IMPRESSION: 1. No radiopaque or radiolucent foreign body identified with plain-film evaluation. [employer] Workstation ID: [id number] Dictated by: CLARICE MABRY on TueFeb 23, 2024 9:58:37 PM EDT Transcribed by: DAVEY VILLALOBOS on TueFeb 23, 2024 10:02:53 PM EDT Finalized by: CLARICE MABRY on TueFeb 23, 2024 10:16:43 PM EDT [facility] Comment on above: Order Comment: Injur y/Trauma or Illness?:Injury/Trauma How long have you had these symptoms (acute/chronic)?:Acute Reason for exam?:patient possibly swallowed a prong off a plastic fork History of cancer?:n Surgeries, chemotherapy, or radiation?:, gallbladder Type of Exam?:Initial Mechanism of injury?:patient possibly swallowed a prong off a plastic fork Thyroid Stim Hormone (TSH)on 02-16-2024 TSH 1.61 uIU/mL Normal 0.358-3.74 [facility] Comment on above: Performed By: #### L 100.0100, L501.4020, L500.2500 #### [facility] [address] [place], [address] XR SACRUM AND COCCYX 2+ VIEW Son 05-08-2023 XR SACRUM AND COCCYX 2+ VIEWS EXAMINATION: XR SACRUM AND COCCYX 2+ VIEWS EXAM DATE: 05/08/2023 2:36 pm HISTORY: ORDERING SYSTEM PROVIDED HISTORY: Trauma, TECHNOLOGIST PROVIDED HISTORY: Injury/Trauma Reason for exam: Pt fell off a bench yesterday has pain in the tailbone Cancer History: n Surgery, RadiationHistory: n Encounter Type: Initial Mechanism of injury: fall ORDERING SYSTEM PROVIDED DIAGNOSIS CODES: COMPARISON: None TECHNIQUE: AP, AP angled and lateral views of the sacrum and coccyx. FINDINGS: There is no acute fracture or dislocation. The soft tissues are unremarkable. There are no arthritic changes. IMPRESSION: No acute findings Workstation ID: [id number] Dictated by: ELICIA BASSETT on [place] May 08, 2023 3:10:55 PM EDT Transcribed by: ELICIA BASSETT on [place] May 08, 2023 3:10:55 PM EDT Finalized by: ELICIA BASSETT on [place] May 08, 2023 3:10:55 PM EDT [facility] Comment on above: Order Comment: Injur y/Trauma or Illness?:Injury/Trauma How long have you had these symptoms (acute/chronic)?:Acute Reason for exam?:Pt fell off a bench yesterday has pain in the tailbone History of cancer?:n Surgeries, chemotherapy, or radiation?:n Type of Exam?:Initial Mechanism of injury?:fall STREP A MOLECULAR (POC)on Procedural Control Valid [facility] Strep A (POCT) Negative Negative [facility] XR Chest PA and Lateralon IMPRESSION: No acute radiographic abnormality. Deicer Finisher: PSCB Transcribe Date/Time: Oct 07 2021 7:53P Dictated by : CINDY DE LA TORRE MD This examination was interpreted and the report reviewed and electronically signed by: CINDY DE LA TORRE MD on Oct 07 2021 7:53PM [facility] DIVISION OF RADIOLOGY * * *Final Report* * * DATE OF EXAM: Oct 07 2021 7:48PM WOX [id number] - XR CHEST 2V FRONTAL/LAT / PROCEDURE REASON: Cough * * * * Physician Interpretation * * * * EXAMINATION: CHEST RADIOGRAPH (2 VIEW FRONTAL & LATERAL) CLINICAL HISTORY: Cough MQ: XC2_6 EXAM DATE/TIME: 10/07/2021 7:48 PM COMPARISON: No relevant prior studies available. RESULT: Lines, tubes, and devices: None. Lungs and pleura: No consolidation. No lung mass. No pleural effusion. No pneumothorax. Cardiomediastinal silhouette: Normal cardiomediastinal silhouette. Bones and soft tissues: Unremarkable. DIVISION OF RADIOLOGY Provider, [facility] - 10/07/2021 * * *Final Report* * * DATE OF EXAM: Oct 07 2021 7:48PM WOX [id number] - XR CHEST 2V FRONTAL/LAT / PROCEDURE REASON: Cough * * * * Physician Interpretation * * * * EXAMINATION: CHEST RADIOGRAPH (2 VIEW FRONTAL & LATERAL) CLINICAL HISTORY: Cough MQ: XC2_6 EXAM DATE/TIME: 10/07/2021 7:48 PM COMPARISON: No relevant prior studies available. RESULT: Lines, tubes, and devices: None. Lungs and pleura: No consolidation. No lung mass. No pleural effusion. No pneumothorax. Cardiomediastinal silhouette: Normal cardiomediastinal silhouette. Bones and soft tissues: Unremarkable. IMPRESSION IMPRESSION: No acute radiographic abnormality. Deicer Finisher: PSCB Transcribe Date/Time: Oct 07 2021 7:53P Dictated by : CINDY DE LA TORRE MD This examination was interpreted and the report reviewed and electronically signed by: CINDY DE LA TORRE MD on Oct 07 2021 7:53PM EST [facility] Radiology Study observation (narrative) [facility] XR Chest PA and LateralOrder ed By: Ccf Provider on 10-07-2021 [facility] NOVEL CORONAVIRUS NASOPHARYN GEAL - [facility] SPECIMEN ONLYon 02-25-2020 SARS-COV-2 NOT DETECTED Normal NOT DETECTED [facility] Comment on above: Order Comment: Submi tter Name: [facility] Agent Suspected: SARS-COV-2 This test was performed using real time PCR and has been approved for the qualitative detection of SARS-CoV-2 nucleic acid. The test has been authorized by the FDA under an emergency use authorization for use by authorized laboratories. Result Comment: Nega tive results do not preclude SARS-CoV-2 infection and should not be used as the sole basis for treatment or other patient management decisions. Optimum specimen types and timing for peak viral levels during infections caused by SARS-CoV-2 has not been determined. The possibility of a false negative result should especially be considered if the patient's recent exposures or clinical presentation suggest that SARS-CoV-2 infection is probable, and diagnostic tests for other causes of illness (e.g., other respiratory illness) are negative. Collection of a new specimen and re-testing may be necessary if the patient is critically ill or clinically deteriorating. Performed By: #### L [id number] #### [facility] ([facility]) [address] [place] [address] Office Visit: [facility]: karan linares t/ hernia checkon 06-19-2017 Documentation of current medications (procedure) Done Invalid Interpretation Code [facility] Work Phone: Fall risk assessment No Invalid Interpretation Code [facility] Work Phone: Rapid strep test Negative Invalid Interpretation Code [facility] Work Phone: Tobacco smoking status NHIS Never Invalid Interpretation Code [facility] Work Phone: Tobacco smoking status NHIS Tobacco smoking status ALIS Invalid Interpretation Code [facility] Work Phone: Vital Signs Date Time Vital Sign Value Performing Clinician Facility 12-09-2024 10:39-0400 Body height 160 cm Nicolasa Perez-Nir PAYABLE REPRESENTATIVE.[employer] Work Phone: [facility] 12-09-2024 10:39-0400 Body mass index (BMI) [Ratio] 52.68 kg/m2 Nicolasabettie Perez-Nir PAYABLE REPRESENTATIVE.[employer] SHOV[employer]NER Work Phone: [facility] 12-09-2024 10:39-0400 Body temperature 98.1 [degF] Nicolasa Praisler-Nir PAYABLE REPRESENTATIVE.[employer] Work Phone: [facility] 12-09-2024 10:39-0400 Body weight 134.9 kg Nicolasa Perez-Nir PAYABLE REPRESENTATIVE.[employer]NER Work Phone: [facility] 12-09-2024 10:39-0400 Diastolic blood pressure 74 mm[Hg] Nicolasa Praisler-Nir PAYABLE REPRESENTATIVE.STE[employer]NER Work Phone: [facility] 12-09-2024 10:39-0400 Heart rate 65 /min Nicolasa Perez-Nir PAYABLE REPRESENTATIVE.[employer]NER Work Phone: [facility] 12-09-2024 10:39-0400 SaO2% (BldA) [Mass fraction] 98 % Nicolasa Pramadeleine-Nir PAYABLE REPRESENTATIVE.[employer]NER Work Phone: [facility] 12-09-2024 10:39-0400 Systolic blood pressure 120 mm[Hg] Nicolasa Praisler-Wood PAYABLE REPRESENTATIVE.STE[employer]NER Work Phone: [facility] 09-18-2024 12:32-0500 Body mass index (BMI) [Ratio] 51.59 kg/m2 Nicolasa Praisler-Wood PAYABLE REPRESENTATIVE.STE[employer]NER Work Phone: [facility] 09-18-2024 12:32-0500 Body temperature 98.4 [degF] Nicolasa Praisler-Wood PAYABLE REPRESENTATIVE.[employer]NER Work Phone: [facility] 09-18-2024 12:32-0500 Body weight 132.1 kg Nicolasa Praisler-Wood PAYABLE REPRESENTATIVE.[employer]NER Work Phone: [facility] 09-18-2024 12:32-0500 Diastolic blood pressure 80 mm[Hg] Nicolasa Praisler-Wood PAYABLE REPRESENTATIVE.[employer]NER Work Phone: [facility] 09-18-2024 12:32-0500 Heart rate 73 /min Nicolasa Praisler-Wood PAYABLE REPRESENTATIVE.[employer]NER Work Phone: [facility] 09-18-2024 12:32-0500 Respiratory rate 16 /min Nicolasa Praisler-Wood PAYABLE REPRESENTATIVE.STE[employer]NER Work Phone: [facility] 09-18-2024 12:32-0500 SaO2% (BldA) [Mass fraction] 95 % Nicolasa Praisler-Wood PAYABLE REPRESENTATIVE.STE[employer] SH[employer]NER Work Phone: [facility] 09-18-2024 12:32-0500 Systolic blood pressure 126 mm[Hg] Nicolasa Praisler-Wood PAYABLE REPRESENTATIVE.STE[employer]NER Work Phone: [facility] 09-06-2024 16:58-0500 Body mass index (BMI) [Ratio] 52.88 kg/m2 Nicolasa Praisler-Wood PAYABLE REPRESENTATIVE.STE[employer]OV[employer]NER Work Phone: [facility] 09-06-2024 16:58-0500 Body temperature 98.2 [degF] Nicolasa Praisler-Wood PAYABLE REPRESENTATIVE.STE[employer] SH[employer] RUNNER Work Phone: [facility] 09-06-2024 16:58-0500 Body weight 135.4 kg Nicolasa Praisler-Wood PAYABLE REPRESENTATIVE.STE[employer]NER Work Phone: [facility] 09-06-2024 16:58-0500 Diastolic blood pressure 90 mm[Hg] Nicolasa Praisler-Wood PAYABLE REPRESENTATIVE.STE[employer]NER Work Phone: [facility] 09-06-2024 16:58-0500 Heart rate 98 /min Nicolasa Praisler-Wood PAYABLE REPRESENTATIVE.[employer]NER Work Phone: [facility] 09-06-2024 16:58-0500 Respiratory rate 16 /min Nicolasa Praisler-Wood PAYABLE REPRESENTATIVE.STE[employer]NER Work Phone: [facility] 09-06-2024 16:58-0500 SaO2% (BldA) [Mass fraction] 99 % Nicolasa Praisler-Wood PAYABLE REPRESENTATIVE.[employer]NER Work Phone: [facility] 09-06-2024 16:58-0500 Systolic blood pressure 132 mm[Hg] Nicolasa Praisler-Wood PAYABLE REPRESENTATIVE.[employer]NER Work Phone: [facility] 08-03-2024 10:29-0500 Body mass index (BMI) [Ratio] 52.29 kg/m2 Vaishali Judge PAYABLE REPRESENTATIVE.[employer]NER Work Phone: [facility] 08-03-2024 10:29-0500 Body temperature 98.4 [degF] Vaishali Judge PAYABLE REPRESENTATIVE.[employer]NER Work Phone: [facility] 08-03-2024 10:29-0500 Body weight 133.9 kg Vaishali Judge PAYABLE REPRESENTATIVE.[employer]NER Work Phone: [facility] 08-03-2024 10:29-0500 Diastolic blood pressure 78 mm[Hg] Vaishali Judge PAYABLE REPRESENTATIVE.[employer]NER Work Phone: [facility] 08-03-2024 10:29-0500 Heart rate 91 /min Vaishali Judge PAYABLE REPRESENTATIVE.[employer]NER Work Phone: [facility] 08-03-2024 10:29-0500 Respiratory rate 21 /min Vaishali Judge PAYABLE REPRESENTATIVE.[employer]NER Work Phone: [facility] 08-03-2024 10:29-0500 SaO2% (BldA) [Mass fraction] 100 % Vaishali Judge PAYABLE REPRESENTATIVE.[employer]NER Work Phone: [facility] 08-03-2024 10:29-0500 Systolic blood pressure 132 mm[Hg] Vaishali Judge PAYABLE REPRESENTATIVE.[employer]NER Work Phone: [facility] 07-19-2024 18:36-0500 Body temperature 98.71 [degF] Kishore Pendrolando PAYABLE REPRESENTATIVE.[employer]NER Work Phone: [facility] 07-19-2024 18:36-0500 Diastolic blood pressure 77 mm[Hg] Kishore Pendlebury PAYABLE REPRESENTATIVE.[employer]NER Work Phone: [facility] 07-19-2024 18:36-0500 Heart rate 97 /min Kishore Pendrolando PAYABLE REPRESENTATIVE.STE[employer]NER Work Phone: [facility] 07-19-2024 18:36-0500 Respiratory rate 18 /min Kishore Pendlebury PAYABLE REPRESENTATIVE.STE[employer]NER Work Phone: [facility] 07-19-2024 18:36-0500 SaO2% (BldA) [Mass fraction] 99 % Kishore Rodríguez PAYABLE REPRESENTATIVE.[employer]NER Work Phone: [facility] 07-19-2024 18:36-0500 Systolic blood pressure 134 mm[Hg] Kishore Pendlekathy PAYABLE REPRESENTATIVE.[employer]NER Work Phone: [facility] 07-07-2024 09:34-0500 Body mass index (BMI) [Ratio] 51.73 kg/m2 Nicolasa Dickens PAYABLE REPRESENTATIVE.[employer]NER Work Phone: [facility] 07-07-2024 09:34-0500 Body temperature 98.6 [degF] Nicolasa Dickens PAYABLE REPRESENTATIVE.[employer]NER Work Phone: [facility] 12-21-2024 09:34-0500 Body weight 132.45 kg Nicolasa Praisler-Wood PAYABLE REPRESENTATIVE.STE[employer]NER Work Phone: [facility] 07-07-2024 09:34-0500 Diastolic blood pressure 84 mm[Hg] Nicolasa Praisler-Wood PAYABLE REPRESENTATIVE.STE[employer]NER Work Phone: [facility] 07-07-2024 09:34-0500 Heart rate 91 /min Nicolasa Praisler-Wood PAYABLE REPRESENTATIVE.STE[employer]NER Work Phone: [facility] 07-07-2024 09:34-0500 Respiratory rate 18 /min Nicolasa Praisler-Wood PAYABLE REPRESENTATIVE.STE[employer]NER Work Phone: [facility] 07-07-2024 09:34-0500 SaO2% (BldA) [Mass fraction] 99 % Nicolasa Praisler-Wood PAYABLE REPRESENTATIVE.STE[employer]NER Work Phone: [facility] 07-07-2024 09:34-0500 Systolic blood pressure 122 mm[Hg] Nicolasa Praisler-Wood PAYABLE REPRESENTATIVE.[employer]NER Work Phone: [facility] 07-05-2024 17:34-0500 Body mass index (BMI) [Ratio] 51.86 kg/m2 Yury White APRN.[employer]NER Work Phone: [facility] 07-05-2024 17:34-0500 Body temperature 99.3 [degF] Yury White APRN.[employer]NER Work Phone: [facility] 07-05-2024 17:34-0500 Body weight 132.8 kg Yury White APRN.[employer] Work Phone: [facility] 07-05-2024 17:34-0500 Diastolic blood pressure 84 mm[Hg] Yury White APRN.[employer]NER Work Phone: [facility] 07-05-2024 17:34-0500 Heart rate 92 /min Yury White APRN.[employer] Work Phone: [facility] 07-05-2024 17:34-0500 Respiratory rate 18 /min Yury White APRN.[employer]NER Work Phone: [facility] 07-05-2024 17:34-0500 SaO2% (BldA) [Mass fraction] 98 % Yury White PAYABLE REPRESENTATIVE.STE[employer] SH[employer] RUNNER Work Phone: [facility] 07-05-2024 17:34-0500 Systolic blood pressure 131 mm[Hg] Yury White PAYABLE REPRESENTATIVE.[employer]NER Work Phone: [facility] 06-06-2024 12:59-0500 Body mass index (BMI) [Ratio] 52.53 kg/m2 Vaishali Judge PAYABLE REPRESENTATIVE.[employer]NER Work Phone: [facility] 06-06-2024 12:59-0500 Body temperature 98.49 [degF] Vaishali Judge PAYABLE REPRESENTATIVE.[employer]NER Work Phone: [facility] 06-06-2024 12:59-0500 Body weight 134.5 kg Vaishali Judge PAYABLE REPRESENTATIVE.[employer]NER Work Phone: [facility] 06-06-2024 12:59-0500 Diastolic blood pressure 70 mm[Hg] Vaishali Judge PAYABLE REPRESENTATIVE.[employer]NER Work Phone: [facility] 06-06-2024 12:59-0500 Heart rate 97 /min Vaishali Judge PAYABLE REPRESENTATIVE.[employer]NER Work Phone: [facility] 06-06-2024 12:59-0500 Respiratory rate 18 /min Vaishali Judge PAYABLE REPRESENTATIVE.[employer]NER Work Phone: [facility] 06-06-2024 12:59-0500 SaO2% (BldA) [Mass fraction] 99 % Vaishali Judge PAYABLE REPRESENTATIVE.STE[employer]NER Work Phone: [facility] 06-06-2024 12:59-0500 Systolic blood pressure 136 mm[Hg] Vaishali Judge PAYABLE REPRESENTATIVE.[employer]NER Work Phone: [facility] 05-16-2024 19:54-0400 Body mass index (BMI) [Ratio] 52.41 kg/m2 [facility] Work Phone: [facility] 05-16-2024 19:54-0400 Body temperature 99 [degF] [facility] Work Phone: [facility] 05-16-2024 19:54-0400 Body weight 134.2 kg [facility] Work Phone: [facility] 05-16-2024 19:54-0400 Diastolic blood pressure 89 mm[Hg] [facility] Work Phone: [facility] 05-16-2024 19:54-0400 Heart rate 76 /min [facility] Work Phone: [facility] 05-16-2024 19:54-0400 Respiratory rate 18 /min [facility] Work Phone: [facility] 05-16-2024 19:54-0400 SaO2% (BldA) [Mass fraction] 98 % [facility] Work Phone: [facility] 05-16-2024 19:54-0400 Systolic blood pressure 140 mm[Hg] [facility] Work Phone: [facility] 05-11-2022 10:20-0400 Body temperature 98.6 [degF] Kishore Pendlebury PAYABLE REPRESENTATIVE.[employer]NER Work Phone: [facility] 05-11-2022 10:20-0400 Body weight 131.54 kg Kishore Pendrolando PAYABLE REPRESENTATIVE.[employer]NER Work Phone: [facility] 05-11-2022 10:20-0400 Diastolic blood pressure 76 mm[Hg] Kishore Pendlebury PAYABLE REPRESENTATIVE.[employer]NER Work Phone: [facility] 05-11-2022 10:20-0400 Heart rate 118 /min Kishore Pendlebury PAYABLE REPRESENTATIVE.[employer]NER Work Phone: [facility] 05-11-2022 10:20-0400 Respiratory rate 18 /min Kishore Pendlebury PAYABLE REPRESENTATIVE.[employer]NER Work Phone: [facility] 05-11-2022 10:20-0400 SaO2% (BldA) [Mass fraction] 99 % Kishore Pendlebury PAYABLE REPRESENTATIVE.[employer]NER Work Phone: [facility] 05-11-2022 10:20-0400 Systolic blood pressure 136 mm[Hg] Kishore Anne ZHANG.STE[employer] SHOV[employer] RUNNER Work Phone: [facility] 06-19-2017 12:27-0500 BMI (Body Mass Index) 38.61 kg/m2 Christine Paula LPN [facility] Work Phone: 06-19-2017 12:27-0500 Body Temperature 98.1 [degF] Christine Paula [employer] [facility] Work Phone: 06-19-2017 12:27-0500 BP Diastolic 78 mm[Hg] Christine Paula LPN [facility] Work Phone: 06-19-2017 12:27-0500 BP Systolic 118 mm[Hg] Christine Paula LPN [facility] Work Phone: 06-19-2017 12:27-0500 Height 160.02 cm Christine Paula LPN [facility] Work Phone: 06-19-2017 12:27-0500 Pulse (Heart Rate) 71 /min Christine Paula LPN [facility] Work Phone: 06-19-2017 12:27-0500 Respiratory Rate 14 /min Christine Paula LPN [facility] Work Phone: 06-19-2017 12:27-0500 Weight 98.88 kg Christine Paula LPN [facility] Work Phone: Encounters Encounter Date Encounter Type Care Provider Facility Start: [facility] Start: 02-15-2025 [facility] Start: 01-23-2025 End: 01-23-2025 [facility] Start: 01-10-2025 End: 01-14-2025 ambulatory [facility] Facility:[facility] Start: 12-31-2024 End: 12-31-2024 ambulatory Laly Pham Facility:[facility] Start: 12-24-2024 ambulatory Alecia Miedel Facility: [facility] Start: 12-19-2024 End: 12-19-2024 Emergency department patient visit Alecia Rick Facility:[facility] Start: 12-18-2024 End: 12-18-2024 ambulatory Alecia Miedel Facility:[facility] Start: 12-18-2024 End: [facility] Start: 12-10-2024 End: 12-10-2024 Follow-up encounter Katie KURTZ Work Phone: [facility] Comment on above: Results Start: 12-09-2024 End: 12-09-2024 Patient encounter procedure Nicolasa Dickens APRN.CNP Work Phone: [facility] Comment on above: Urinary frequency (P rimary Dx); Screening for STD (sexually transmitted disease); Cutaneous skin tags Start: 12-09-2024 End: 12-09-2024 ambulatory NICOLASA DICKENS Facility:[facility] Start: 12-05-2024 End: 12-05-2024 ambulatory Alecia Ottoalex Facility:[facility] Start: 10-31-2024 End: 10-31-2024 ambulatory Alecia Plasenciael Facility:[facility] Start: 10-31-2024 End: 10-31-2024 ambulatory Alecia Ottoedel Facility:[facility] Start: 10-11-2024 End: 10-11-2024 ambulatory Alecia Janeedel Facility:[facility] Start: 10-10-2024 End: 10-11-2024 ambulatory Alecia Rogers Facility:[facility] Start: 10-03-2024 End: 10-03-2024 ambulatory Jordyn Carrillo Facility:[facility] Start: 10-01-2024 End: 10-01-2024 ambulatory Alecia Mialex Facility:[facility] Start: 10-01-2024 End: 10-01-2024 ambulatory Jordyn Carrillo Facility:[facility] Start: 09-18-2024 End: 09-18-2024 ambulatory ALECIA Herb PLASENCIA Facility:[facility] Start: 09-18-2024 End: 09-18-2024 Office outpatient visit 15 minutes Nicolasa Dickens APRN.[employer] Work Phone: [facility] Comment on above: Sore throat (Primary Dx) Start: 09-18-2024 ambulatory ALECIA Herb OTTOEDEL Facilit y:[facility] Start: 09-14-2024 End: 09-14-2024 ambulatory Alecia Mied Facility[place] Start: 09-06-2024 End: 09-06-2024 ambulatory [facility] Facility:[facility] Start: 09-06-2024 End: 09-06-2024 Patient encounter procedure Nicolasa Dickens APRN.[employer] Work Phone: [facility] Comment on above: Viral URI with cough (Primary Dx); Flu-like symptoms Start: 08-20-2024 End: 08-20-2024 ambulatory Alecia Mied Facility:[facility] Start: 08-20-2024 End: 08-20-2024 ambulatory [facility] Facility:[facility] Start: 08-06-2024 End: 08-06-2024 ambulatory [facility] Facility:[facility] Start: 08-06-2024 End: 08-06-2024 ambulatory [facility] Facility:[facility] Start: 08-05-2024 End: 08-06-2024 Telephone encounter Vaishali Judge APRN.[employer] Work Phone: [facility] Comment on above: Results Start: 08-03-2024 End: 08-03-2024 [facility] Start: 08-03-2024 End: 08-03-2024 Patient encounter procedure Vaishali Judge APRN.[employer] Work Phone: [facility] Comment on above: URI, acute (Primary Dx); Sore throat Start: 2024 End: 2024 ambulatory Alecia Mied Facility:[facility] Start: 2024 End: 2024 Telephone encounter Katie KURTZ Work Phone: [facility] Comment on above: Results Start: 07-19-2024 End: 07-19-2024 ambulatory [facility] Facility:[facility] Start: 07-19-2024 End: 07-19-2024 Office outpatient visit 15 minutes Kishroe Rodríguez APRN.[employer] Work Phone: [facility] Comment on above: Burning with urinati on (Primary Dx) Start: 07-07-2024 End: 07-07-2024 ambulatory [facility] Facility:[facility] Start: 07-07-2024 End: 07-07-2024 Patient encounter procedure Nicolasa Dickens APRN.[employer] Work Phone: [facility] Comment on above: Bacterial sinusitis (Primary Dx); Feared condition not demonstrated Start: 07-06-2024 End: 07-06-2024 Telephone encounter Apple Foster APRN.[employer] Work Phone: [facility] Comment on above: Results Start: 07-05-2024 End: 07-05-2024 ambulatory [facility] Facility:[facility] Start: 07-05-2024 End: 07-05-2024 Patient encounter procedure Yury White APRN.[employer] Work Phone: [facility] Comment on above: Sore throat (Primary Dx); URI, acute Start: 06-28-2024 End: 06-28-2024 ambulatory [facility] Facility:[facility] Start: 06-08-2024 ambulatory [facility] Facility: [facility] Start: 06-06-2024 End: 06-06-2024 Subsequent hospital visit by physician X[facility] Work Phone: Radiology Comment on above: Acute cough [R05.1] Start: 06-06-2024 End: 06-06-2024 ambulatory [facility] Facility:[facility] Start: 06-06-2024 End: 06-06-2024 Patient encounter procedure Vaishali Judge APRN.[employer] Work Phone: [facility] Comment on above: Urinary frequency (P rimary Dx); Acute cough; Encounter for screening examination for sexually transmitted infection; URI, acute Start: 06-05-2024 End: 06-05-2024 Emergency department patient visit [facility] Facility:[facility] Start: 06-01-2024 End: 06-01-2024 ambulatory [facility] Facility:[facility] Start: 05-16-2024 End: 05-16-2024 ambulatory [facility] Facility:[facility] Start: 05-16-2024 End: 05-16-2024 Patient encounter procedure [facility] Work Phone: [facility] Comment on above: Bacterial sinusitis (Primary Dx) Start: 05-04-2024 End: 05-04-2024 ambulatory [facility] Facility:[facility] Start: 04-17-2024 End: 04-17-2024 ambulatory [facility] Facility:[facility] Start: 03-27-2024 Encounter for gynecological examination (general) (routine) without abnormal findings Gema Estrada [facility] Start: 03-27-2024 End: 03-27-2024 ambulatory [facility] Facility:[facility] Start: 03-27-2024 End: 03-27-2024 ambulatory [facility] Facility:[facility] Start: 03-23-2024 End: 03-23-2024 ambulatory [facility] Facility:[facility] Start: 03-12-2024 End: 03-12-2024 Emergency department patient visit [facility] Start: 02-23-2024 End: 02-23-2024 Emergency department patient visit [facility] Start: 02-16-2024 End: 02-16-2024 ambulatory [facility] Facility:[facility] Start: 05-08-2023 End: 05-08-2023 Emergency department patient visit [facility] Start: 05-11-2022 End: 05-11-2022 Patient encounter procedure Kishore Rodríguez APRN.[employer] Work Phone: [facility] Comment on above: Pharyngitis, unspeci fied etiology (Primary Dx); Viral illness Start: 10-12-2021 Telephone encounter Nicolasa Riojas APRN.[facility] Work Phone: [facility] Comment on above: Results Start: 10-07-2021 End: 10-07-2021 Subsequent hospital visit by physician Xr [facility] Work Phone: Radiology Comment on above: Cough [R05.9] Start: 02-12-2021 Patient requested procedure Nicolasa Dickens APRN.[facility] Work Phone: [facility] Work Phone: Procedures Date Procedure Procedure Detail Performing Clinician Start: 12-09-2024 Urnls dip stick/tabl et rgnt auto w/o microscopy Nicolasa Dickens APRN.[employer] Work Phone: Start: 09-18-2024 STREP A MOLECULAR (POC) Vaishali Judge APRN.[employer] Work Phone: Start: 08-03-2024 STREP A MOLECULAR (POC) Yury White APRN.[employer] Work Phone: Start: 07-19-2024 Urnls dip stick/tabl et rgnt auto w/o microscopy Katie KURTZ Work Phone: Start: 07-05-2024 STREP A MOLECULAR (POC) Yury White APRN.[employer] Work Phone: Start: 06-06-2024 Radiologic exam ches t 2 views Vaishali Judge APRN.[employer] Work Phone: Start: 06-06-2024 Urnls dip stick/tabl et rgnt auto w/o microscopy Vaishali Judge APRN.[employer] Work Phone: Start: 05-11-2022 STREP A MOLECULAR (POC) Kishore Rodríguez APRN.[employer] Work Phone: Start: 10-07-2021 Radiologic exam ches t 2 views Mary Retana PA-C Work Phone: Start: 06-19-2017 End: 06-19-2017 [facility] streptococcus [facility] a Stacey Phillips PA-C Work Phone: Start: 03-08-2016 Adult depression scr eening assessment Nicolasa Dickens APRN.CNP Work Phone: Plan of Treatment Date Care Activity Detail Author Start: 07-06-2031 Urine microalbumin profile DTaP,Tdap,Td Vaccine (11 - Td or Tdap) [facility] Start: 01-26-2027 Urine microalbumin profile DTAP,TDAP,TD (9 - Td or Tdap) [facility] Start: 03-18-2025 Influenza vaccination Influenz a Vaccine (Season Ended) [facility] Start: 03-18-2024 Covid-19 Vaccine ( season) Covid-19 Vaccine ( season) [facility] Start: 03-18-2024 Influenza vaccination Influenza Vacc ine (#1) [facility] Start: 02-24-2024 PAP TESTING PAP TESTING [facility] Start: 02-24-2024 Screening for malign ant neoplasm of cervix Cervical Cancer Screening [facility] Start: 05-11-2022 End: 05-25-2022 Influenza virus A and B RNA and SARS-CoV-2 (COVID-19) N gene panel - Respiratory specimen by VINOD with probe detection [facility] Work Phone: Comment on above: Expected: 05/11/2022 , Expires: 05/25/2022 Start: 03-18-2022 Influenza vaccination INFLUENZA (#1) [facility] Start: 07-18-2021 DEPRESSION ASSESSMENT DEPRESSION ASS ESSMENT [facility] Start: 03-18-2021 Influenza vaccination INFLUENZA (#1) [facility] Start: 06-19-2017 End: 06-19-2017 Streptococcus.beta-hemol ytic [Presence] in Throat by Organism specific culture *Culture, R/O Strep A Swab [facility] Work Phone: Start: 06-19-2017 End: 06-19-2017 Appointment Appointment [facility] Work Phone: Start: 03-08-2017 Adult depression screening assessment DEPRESSION SCREENING [facility] Start: 2015 Anxiety Screening Anxiety Screening [facility] Start: 2015 Depression Screening Depression Scre ening [facility] Start: 2015 HEPATITIS C SCREENING HEPATITIS C [facility] Start: 2015 Hepatitis C screening Hepatitis C [facility] Start: 2013 Meningococcal B Vacc ine: Consider Based On Risk (2 of 2 - Risk Bexsero 2-dose series) Meningococcal B Vaccine: Consider Based On Risk (2 of 2 - Risk Bexsero 2-dose series) [facility] Start: 2013 MENINGOCOCCAL B: Consider based on risk (2 of 2 - Risk Bexsero 2-dose series) MENINGOCOCCAL B: Consider based on risk (2 of 2 - Risk Bexsero 2-dose series) [facility] Start: 06-19-2013 MENINGOCOCCAL B: Consider based on risk (2 of 2 - Risk Bexsero 2-dose series) MENINGOCOCCAL B: Consider based on risk (2 of 2 - Risk Bexsero 2-dose series) [facility] Start: 2012 HPV Vaccine (1 - 3-d ose series) HPV Vaccine (1 - 3-dose series) [facility] Start: 2011 PEDS TO ADULT TRANSI TION ANNUAL ASSESSMENT PEDS TO ADULT TRANSITION ANNUAL ASSESSMENT [facility] Start: 2009 PEDS TO ADULT TRANSI TION INITIAL DISCUSSION PEDS TO ADULT TRANSITION INITIAL DISCUSSION [facility] Start: 2008 HPV VACCINE (1 - 2-d ose series) HPV VACCINE (1 - 2-dose series) [facility] Start: 2002 COVID-19 VACCINE (1) COVID-19 VACCIN E (1) [facility] Start: 01-17-1998 COVID-19 VACCINE (#1) COVID-19 VACCI NE (#1) [facility] Bacteria identified in Urine by Culture URINE CULTURE Microbiology Routine Urinary frequency Ordered: 06/06/2024 [facility] Work Phone: Comment on above: Ordered: 06/06/2024 Bacteria identified in Urine by Culture URINE CULTURE Microbiology Routine Burning with urination Ordered: 07/19/2024 [facility] Work Phone: Comment on above: Ordered: 07/19/2024 Bacteria identified in Urine by Culture BACTERIAL CULTURE, URINE Microbiology Routine Urinary frequency Ordered: 12/09/2024 [facility] Work Phone: Comment on above: Ordered: 12/09/2024 BACTERIAL VAGINOSIS NAAT BACTERI AL VAGINOSIS NAAT Lab Routine Encounter for screening examination for sexually transmitted infection Ordered: 06/06/2024 [facility] Comment on above: Ordered: 06/06/2024 BACTERIAL VAGINOSIS NAAT BACTERI AL VAGINOSIS NAAT Lab Routine Burning with urination Ordered: 07/19/2024 [facility] Comment on above: Ordered: 07/19/2024 BACTERIAL VAGINOSIS NAAT BACTERI AL VAGINOSIS NAAT Lab Routine Screening for STD (sexually transmitted disease) Ordered: 12/09/2024 [facility] Comment on above: Ordered: 12/09/2024 CHRISSIE/TRICHOMONAS NAAT CHRISSIE /TRICHOMONAS NAAT Lab Routine Encounter for screening examination for sexually transmitted infection Ordered: 06/06/2024 [facility] Comment on above: Ordered: 06/06/2024 CHRISSIE/TRICHOMONAS NAAT CHRISSIE /TRICHOMONAS NAAT Lab Routine Burning with urination Ordered: 07/19/2024 [facility] Comment on above: Ordered: 07/19/2024 CHRISSIE/TRICHOMONAS NAAT CHRISSIE /TRICHOMONAS NAAT Lab Routine Screening for STD (sexually transmitted disease) Ordered: 12/09/2024 [facility] Comment on above: Ordered: 12/09/2024 Chlamydia trachomatis+Neisseria gonorrhoeae DNA [Presence] in Unspecified specimen by VINOD with probe detection GONORRHEA/CHLAMYDIA NAAT Lab Routine Encounter for screening examination for sexually transmitted infection Ordered: 06/06/2024 [facility] Comment on above: Ordered: 06/06/2024 Chlamydia trachomatis+Neisseria gonorrhoeae DNA [Presence] in Unspecified specimen by VINOD with probe detection GONORRHEA/CHLAMYDIA NAAT Lab Routine Burning with urination Ordered: 07/19/2024 [facility] Work Phone: Comment on above: Ordered: 07/19/2024 Chlamydia trachomatis+Neisseria gonorrhoeae DNA [Presence] in Unspecified specimen by VINOD with probe detection GONORRHEA/CHLAMYDIA NAAT Lab Routine Screening for STD (sexually transmitted disease) Ordered: 12/09/2024 [facility] Comment on above: Ordered: 12/09/2024 COVID & INFLUENZA A/ B & RSV PCR, ROUTINE COVID & INFLUENZA A/B & RSV PCR, ROUTINE Microbiology Routine URI, acute Ordered: 07/05/2024 [facility] Work Phone: Comment on above: Ordered: 07/05/2024 COVID & INFLUENZA A/ B & RSV PCR, ROUTINE COVID & INFLUENZA A/B & RSV PCR, ROUTINE Microbiology Routine URI, acute 08/03/2024 11:18 AM EST [facility] Work Phone: COVID & INFLUENZA A/ B & RSV PCR, ROUTINE COVID & INFLUENZA A/B & RSV PCR, ROUTINE Microbiology Routine Flu-like symptoms Ordered: 09/06/2024 [facility] Work Phone: Comment on above: Ordered: 09/06/2024 Immunizations Immunization Date Immunization Notes Care Provider Alona phelps 07-06-2021 tetanus toxoid, redu gerson diphtheria toxoid, and acellular pertussis vaccine, adsorbed Vaishali Judge PAYABLE REPRESENTATIVE.[employer] Work Phone: [facility] 06-26-2018 hepatitis B vaccine, adult dosage Nicolasa Dickens PAYABLE REPRESENTATIVE.[employer] Work Phone: [facility] Work Phone: 05-20-2017 influenza, injectabl e, quadrivalent, contains preservative Vaishali Judge PAYABLE REPRESENTATIVE.[employer] Work Phone: [facility] 05-20-2017 influenza virus vacc ine, unspecified formulation Xr [facility] Work Phone: [facility] 01-26-2017 tetanus and diphther ia toxoids, adsorbed, preservative free, for adult use (2 Lf of tetanus toxoid and 2 Lf of diphtheria toxoid) Nicolasa Dickens PAYABLE REPRESENTATIVE.[employer] Work Phone: [facility] Work Phone: 01-19-2017 tetanus toxoid, redu gerson diphtheria toxoid, and acellular pertussis vaccine, adsorbed Nicolasa Dickens PAYABLE REPRESENTATIVE.[employer] Work Phone: [facility] 07-18-2016 tetanus toxoid, redu gerson diphtheria toxoid, and acellular pertussis vaccine, adsorbed Vaishali Judge PAYABLE REPRESENTATIVE.[employer] Work Phone: [facility] 02-12-2015 meningococcal polysaccharide (groups A, C, Y and W-135) diphtheria toxoid conjugate vaccine (MCV4P) Nicolasa Dickens APRN.[facility] Work Phone: [facility] 02-12-2015 tuberculin skin test ; purified protein derivative solution, intradermal Xr [facility] Work Phone: [facility] 12-31-2013 tuberculin skin test ; purified protein derivative solution, intradermal Xr [facility] Work Phone: [facility] 12-21-2013 tuberculin skin test ; purified protein derivative solution, intradermal [facility]r [facility] Work Phone: [facility] 12-22-2009 tetanus toxoid, redu gerson diphtheria toxoid, and acellular pertussis vaccine, adsorbed Nicolasa Dickens PAYABLE REPRESENTATIVE.[facility] Work Phone: [facility] 09-27-2008 measles, mumps and rubella virus vaccine Nicolasa Dickens APRN.[facility] Work Phone: [facility] 09-27-2002 diphtheria, tetanus toxoids and acellular pertussis vaccine Nicolasa Dickens APRN.[facility] Work Phone: [facility] 09-27-2002 measles, mumps and rubella virus vaccine Vaishali Judge PAYABLE REPRESENTATIVE.[facility] Work Phone: [facility] 09-27-2002 poliovirus vaccine, inactivated Nicolasa Dickens APRN.[employer] Work Phone: [facility] 01-20-1999 diphtheria, tetanus toxoids and acellular pertussis vaccine Nicolasa Dickens APRN.[employer] Work Phone: [facility] 01-20-1999 haemophilus influenz ae type b vaccine, HbOC conjugate Nicolasa Dickens APRN.[facility] Work Phone: [facility] 01-20-1999 trivalent poliovirus vaccine, live, oral Nicolasa Dickens APRN.[employer] Work Phone: [facility] 01-20-1999 varicella virus vaccine Rita tan Praisler-Wood PAYABLE REPRESENTATIVE.[employer] Work Phone: [facility] 08-07-1998 measles, mumps and rubella virus vaccine Nicolasa Praisler-Wood PAYABLE REPRESENTATIVE.[employer] Work Phone: [facility] 01-16-1998 diphtheria, tetanus toxoids and acellular pertussis vaccine Nicolasa Praisler-Wood PAYABLE REPRESENTATIVE.[employer] Work Phone: [facility] 01-16-1998 haemophilus influenz ae type b vaccine, HbOC conjugate Nicolasa Praisler-Wood PAYABLE REPRESENTATIVE.[employer] Work Phone: [facility] 01-16-1998 hepatitis B vaccine, pediatric or pediatric/adolescent dosage Nicolasa Praisler-Wood PAYABLE REPRESENTATIVE.[employer] Work Phone: [facility] 1997 diphtheria, tetanus toxoids and acellular pertussis vaccine Nicolasa Praisler-Wood PAYABLE REPRESENTATIVE.[employer] Work Phone: [facility] 1997 haemophilus influenz ae type b vaccine, HbOC conjugate Nicolasa Praisler-Wood PAYABLE REPRESENTATIVE.[employer] Work Phone: [facility] 1997 poliovirus vaccine, inactivated Nicolasa Praisler-Wood PAYABLE REPRESENTATIVE.[employer] Work Phone: [facility] 1997 diphtheria, tetanus toxoids and acellular pertussis vaccine Nicolasa Praisler-Wood PAYABLE REPRESENTATIVE.[employer] Work Phone: [facility] 1997 haemophilus influenz ae type b vaccine, HbOC conjugate Nicolasa Praisler-Wood PAYABLE REPRESENTATIVE.[employer] Work Phone: [facility] 1997 poliovirus vaccine, inactivated Nicolasa Praisler-Wood PAYABLE REPRESENTATIVE.[employer] Work Phone: [facility] 1997 hepatitis B vaccine, pediatric or pediatric/adolescent dosage Nicolasa Praisler-Wood PAYABLE REPRESENTATIVE.[employer] Work Phone: [facility] 1997 hepatitis B vaccine, pediatric or pediatric/adolescent dosage Nicolasa Praisler-Wood PAYABLE REPRESENTATIVE.[employer] Work Phone: [facility] Payers Date Payer Category Payer Self-pay 2023 Private Health Insurance [id number] 2023 Private Health Insurance [id number] 2021 Private Health Insurance [facility] [employer] [id number] 2021-Present [address] [address] [place] [address] PPO [id number] 2021 Private Health Insurance [id number] 1997 Unknown [id number] 2.16.840.1.431271.3.579. 2.902 1997 Unknown [id number] 2.16.840.1.603970.3.579. 2.902 1997 Unknown [id number] 2.16.840.1.546928.3.579. 2.902 Unknown [id number] 2.16.840.1.295200.3.579. 2.462 Unknown [id number] 2.16.840.1.482937.3.579. 2.462 Unknown [id number] 2.16.840.1.748936.3.579. 2.462 Unknown [id number] 2.16.840.1.287437.3.579. 2.462 Unknown [id number] 2.16.840.1.539327.3.579. 2.462 Unknown [id number] 2.16.840.1.748152.3.579. 2.462 Unknown [id number] 2.16.840.1.502263.3.579. 2.462 Unknown [id number] 2.16.840.1.848340.3.579. 2.462 Unknown [id number] 2.16.840.1.940535.3.579. 2.462 Unknown [id number] 2.840.1.745748.3.579. 2.462 Unknown [id number] 2.840.1.676347.3.579. 2.462 Unknown [id number] 2.840.1.752942.3.579. 2.462 Unknown [id number] 2.840.1.739641.3.579. 2.462 Unknown [id number] 2.840.1.836377.3.579. 2.462 Unknown [id number] 2.840.1.691147.3.579. 2.462 Unknown [id number] 2.840.1.568740.3.579. 2.462 Unknown [id number] 2.840.1.049568.3.579. 2.462 Unknown [id number] 2.840.1.839722.3.579. 2.462 Unknown [id number] .840.1.748006.3.579. 2.462 Unknown [id number] .840.1.177005.3.579. 2.462 Unknown [id number] .840.1.827829.3.579. 2.462 Unknown [id number] 2.840.1.776129.3.579. 2.462 Unknown [id number] .840.1.673083.3.579. 2.462 Unknown [id number] .840.1.064683.3.579. 2.462 Unknown [id number] 2.840.1.490155.3.579. 2.462 Unknown [id number] 2.840.1.943455.3.579. 2.462 Unknown [id number] 2.840.1.581306.3.579. 2.462 Unknown [id number] 2.16.840.1.392480.3.579. 2.462 Unknown [id number] 2.16.840.1.067594.3.579. 2.462 Unknown [id number] 2.16.840.1.364830.3.579. 2.462 Unknown [id number] 2.16.840.1.737340.3.579. 2.462 Unknown [id number] 2.16.840.1.234169.3.579. 2.462 Unknown [id number] 2.16.840.1.794172.3.579. 2.462 Unknown [id number] 2.16.840.1.935926.3.579. 2.462 Unknown [id number] 2.16.840.1.362163.3.579. 2.462 Social History Date Type Detail Facility Start: 02-10-2011 End: 05-11-2022 Tobacco smoking status NHIS Never smoked tobacco [facility] Work Phone: Start: 10-07-2021 End: 12-09-2024 Alcohol intake Current non-drinker of alcohol (finding) [facility] Start: 02-12-2021 Education 13 [facility] Start: 01-21-2021 [facility] Start: 1995 Sex Assigned At Not on file [facility] Start: 09-27-2021 End: 05-11-2022 Exposure to SARS-CoV-2 (event) Not sure [facility] Start: 02-10-2011 End: 05-11-2022 Tobacco use and exposure Smokeless tobacco non-user [facility] Work Phone: Start: 06-25-2020 End: 10-07-2021 History of Social function [facility] Start: 06-25-2020 End: 10-07-2021 Tobacco use panel [facility] National Score (1-10 0), lower number is lower risk Not on file [facility] Functional Status Date Assessment Result Facility 02-12-2015 Are you deaf, or do you have serious difficulty hearing No 02/12/2015 8:02 AM Katiuska Lucas LPN No [facility] 02-12-2015 Are you blind, or do you have serious difficulty seeing, even when wearing glasses No 02/12/2015 8:02 AM EDT Katiuska Mike LPN No [facility] 02-12-2015 Do you have serious difficulty walking or climbing stairs No 02/12/2015 8:02 AM EDT Katiuska Mike LPN No [facility] 02-12-2015 Do you have difficul ty dressing or bathing No 02/12/2015 8:02 AM EDT Katiuska Mike LPN No [facility] 02-12-2015 Because of a physica l, mental, or emotional condition, do you have difficulty doing errands alone such as visiting a physician's office or shopping No 02/12/2015 8:02 AM EDT Katiuska Mike LPN No [facility] Mental Status Date Assessment Result Facility 02-12-2015 Because of a physica l, mental, or emotional condition, do you have serious difficulty concentrating, remembering, or making decisions No 02/12/2015 8:02 AM EDT Katiuska Mike LPN No [facility] Clinical Notes 10-21-2016 to 12-10-2024 Telephone Encounter - Michelle Redman MA - 12/10/2024 9:01 AM EDTTelephone Encounter - Michelle Redman MA - 12/10/2024 9:01 AM EDTPatient InstructionsPatient InstructionsPatient Instructions Note Date & Type Note Facility 12-10-2024 Telephone encounter Note Patient given results and verbalized understanding of instructions given. Michelle Redman MA [facility] 12-10-2024 Miscellaneous Notes Patient given results and verbalized understanding of instructions given. Michelle Redman MA Please contact patient and let her know her gonorrhea, chlamydia, yeast, trichomonas and BV swabs were all negative documented in this encounter [facility] 12-10-2024 Telephone encounter Note Please contact patient and let her know her gonorrhea, chlamydia, yeast, trichomonas and BV swabs were all negative [facility] Work Phone: 12-09-2024 Instructions Nicolasa Dickens APRN.ERICA - 12/09/2024 11:09 AM EDT 1. Urinary frequency (R35.0) - Urine dip showed trace hematuria; not strongly indicative of infection. - Sent urine sample to lab for culture. - Will follow up with results and treat as indicated. 2. Screening for STD (sexually transmitted disease) (Z11.3) - Performed vaginal exam; vaginal tissues appear healthy with no erythema or lesions noted. - Cervix has some white, thick discharge. - Obtained swabs for STD screening. - Will notify patient of results and initiate treatment if necessary. 3. Cutaneous skin tags (L91.8) - Two small skin tags observed on the left upper thigh near the perineal area. - No treatment required at this time but referral entered for dematology if patient wishes to have these removed. . - A vaginal swab and urine sample were collected today and sent to the lab for culture. - Expect a phone call with your lab results. Once we have them, we will contact you to start the appropriate treatment. - A referral to dermatology was entered in case you would like to have the skin tags removed. documented in this encounter [facility] 12-09-2024 Note HNO ID: [id number] Author: NICOLASA DICKENS APRN.ERICA Service: ? Author Type: Nurse Practitioner Type: Progress Notes Filed: 12/09/2024 11:09 Note Text: [facility] Subjective Cedric Hope is a 29 year old female. Patient presents with: STD HPI Vaginal Irritation and Discomfort: - Persistent irritation and discomfort x2 weeks. - Describes sensation as irritation; denies pruritus. - Denies noticing any discharge or odor. - Recent treatment for BV; no odor noted during BV episode. - History of chlamydia with similar symptoms. - Recent use of amoxicillin, followed by two doses of antifungal medication for suspected yeast infection, with persistent symptoms. - Denies any current rash or lesions. Urinary Frequency: - Increased urinary frequency; denies dysuria. - Attributed to increased water intake for weight loss efforts. Review of Systems Constitutional: Negative for chills and fever. Respiratory: Negative. Cardiovascular: Negative. Genitourinary: Positive for frequency. Negative for difficulty urinating, dysuria, flank pain, hematuria and urgency. Musculoskeletal: Negative for back pain. Skin: Negative for color change and rash. Genitourinary: (+) irritation, (+) discomfort, (+) urinary frequency, (-) itching, (-) discharge, (-) burning, (-) odor Objective BP 120/74 Pulse 65 Temp 36.7 ?C (98.1 ?F) Ht 160 cm (5' 3) Wt 134.9 kg (297 lb 6.4 oz) LMP 07/05/2024 (Within Days) SpO2 98% BMI 52.68 kg/m? PAST MEDICAL HISTORY Diagnosis Date Chlamydia 2013 and 2016 Depression Infertility, female Panic attacks depression PAST SURGICAL HISTORY Procedure Laterality Date DELIVERY ONLY 04/12/2017 PAST SURGICAL HISTORY OF oral (gum) surgery ALLERGIES Patient has no known allergies. MEDICATIONS venlafaxine ER (EFFEXOR XR) 150 mg 24 hr capsule Take 150 mg by mouth every morning. traZODone (DESYREL) 50 mg tablet Take 50 mg by mouth at bedtime as needed. Avznzllbnijyjop-Njijhydxl-XP (BROMFED DM) 2-30-10 mg/5 mL syrup Take 5 mL by mouth four times a day as needed. (Patient not taking: Reported on 09/18/2024) pantoprazole DR (PROTONIX) 40 mg tablet Take 40 mg by mouth once daily. metoprolol tartrate, short acting, (LOPRESSOR) 25 mg tablet TAKE 1/2 TABLET BY MOUTH 2 TIMES A DAY (Patient not taking: Reported on 09/18/2024) SPRINTEC 0.25-35 mg-mcg per tablet (Patient not taking: Reported on 08/03/2024) omeprazole (PRILOSEC) 20 mg capsule Take 20 mg by mouth once daily. (Patient not taking: Reported on 08/03/2024) busPIRone (BUSPAR) 10 mg tablet (Patient not taking: Reported on 08/03/2024) citalopram (CELEXA) 40 mg tablet (Patient not taking: Reported on 08/03/2024) oxyCODONE-acetaminophen (PERCOCET) 5-325 mg tablet (Patient not taking: Reported on 05/11/2022) labetalol (TRANDATE) 100 mg tablet (Patient not taking: Reported on 05/11/2022) ibuprofen (MOTRIN) 600 mg tablet (Patient not taking: Reported on 05/11/2022) ferrous sulfate (IRON ORAL) Take by mouth. (Patient not taking: Reported on 08/03/2024) docusate sodium (COLACE ORAL) Take by mouth. (Patient not taking: Reported on 05/11/2022) Tasdfnoa-Qb-Wqd-Fe-FA ( VITAMIN) tab Take 1 tablet by mouth. (Patient not taking: Reported on 05/11/2022) escitalopram oxalate (LEXAPRO) 20 mg tablet Take 1 tablet by mouth once daily. (Patient not taking: Reported on 10/07/2021 ) FAMILY HISTORY Problem Relation Age of Onset Allergies Mother Anxiety disorder Mother other (brain tumor benign) Father other (Depression, anxiety , panic attacks) Father Hypertension Father No Known Problems Sister No Known Problems Sister No Known Problems Brother No Known Problems Brother No Known Problems Brother Hypertension Maternal Grandmother Lipids Maternal Grandmother other (Depression) Maternal Grandmother Breast Cancer Maternal Grandmother Asthma Maternal Grandfather COPD Maternal Grandfather Heart Paternal Grandmother COPD Paternal Grandfather Liver Disease Paternal Grandfather No Known Problems Daughter Social History Tobacco Use Smoking status: Never Smokeless tobacco: Never Vaping Use Vaping status: Never Used Substance Use Topics Alcohol use: No Drug use: No Physical Exam Vitals and nursing note reviewed. Exam conducted with a database manager present. Constitutional: General: She is not in acute distress. Appearance: Normal appearance. She is not ill-appearing. Cardiovascular: Rate and Rhythm: Normal rate. Pulmonary: Effort: Pulmonary effort is normal. Genitourinary: General: Normal vulva. Exam position: Lithotomy position. Pubic Area: No rash or pubic lice. Labia: Right: No rash, tenderness or lesion. Left: No rash, tenderness or lesion. Vagina: No signs of injury. No vaginal discharge, erythema, tenderness, bleeding or lesions. Cervix: Discharge present. No lesion, erythema or cervical bleeding. (more content not included)... [facility] 12-09-2024 History of Presen t illness Narrative [facility] Cedric Hope is a 29 year old female. Patient presents with: STD HPI Vaginal Irritation and Discomfort: - Persistent irritation and discomfort x2 weeks. - Describes sensation as irritation; denies pruritus. - Denies noticing any discharge or odor. - Recent treatment for BV; no odor noted during BV episode. - History of chlamydia with similar symptoms. - Recent use of amoxicillin, followed by two doses of antifungal medication for suspected yeast infection, with persistent symptoms. - Denies any current rash or lesions. Urinary Frequency: - Increased urinary frequency; denies dysuria. - Attributed to increased water intake for weight loss efforts. Review of Systems Constitutional: Negative for chills and fever. Respiratory: Negative. Cardiovascular: Negative. Genitourinary: Positive for frequency. Negative for difficulty urinating, dysuria, flank pain, hematuria and urgency. Musculoskeletal: Negative for back pain. Skin: Negative for color change and rash. Genitourinary: (+) irritation, (+) discomfort, (+) urinary frequency, (-) itching, (-) discharge, (-) burning, (-) odor Objective BP 120/74 Pulse 65 Temp 36.7 C (98.1 F) Ht 160 cm (5' 3) Wt 134.9 kg (297 lb 6.4 oz) LMP 07/05/2024 (Within Days) SpO2 98% BMI 52.68 kg/m PAST MEDICAL HISTORY Diagnosis Date Chlamydia 2013 and 2016 Depression Infertility, female Panic attacks depression PAST SURGICAL HISTORY Procedure Laterality Date DELIVERY ONLY 04/12/2017 PAST SURGICAL HISTORY OF oral (gum) surgery ALLERGIES Patient has no known allergies. MEDICATIONS venlafaxine ER (EFFEXOR XR) 150 mg 24 hr capsule Take 150 mg by mouth every morning. traZODone (DESYREL) 50 mg tablet Take 50 mg by mouth at bedtime as needed. Mgpxpnloamywisq-Mqmiqfcyk-HX (BROMFED DM) 2-30-10 mg/5 mL syrup Take 5 mL by mouth four times a day as needed. (Patient not taking: Reported on 09/18/2024) pantoprazole DR (PROTONIX) 40 mg tablet Take 40 mg by mouth once daily. metoprolol tartrate, short acting, (LOPRESSOR) 25 mg tablet TAKE 1/2 TABLET BY MOUTH 2 TIMES A DAY (Patient not taking: Reported on 09/18/2024) SPRINTEC 0.25-35 mg-mcg per tablet (Patient not taking: Reported on 08/03/2024) omeprazole (PRILOSEC) 20 mg capsule Take 20 mg by mouth once daily. (Patient not taking: Reported on 08/03/2024) busPIRone (BUSPAR) 10 mg tablet (Patient not taking: Reported on 08/03/2024) citalopram (CELEXA) 40 mg tablet (Patient not taking: Reported on 08/03/2024) oxyCODONE-acetaminophen (PERCOCET) 5-325 mg tablet (Patient not taking: Reported on 05/11/2022) labetalol (TRANDATE) 100 mg tablet (Patient not taking: Reported on 05/11/2022) ibuprofen (MOTRIN) 600 mg tablet (Patient not taking: Reported on 05/11/2022) ferrous sulfate (IRON ORAL) Take by mouth. (Patient not taking: Reported on 08/03/2024) docusate sodium (COLACE ORAL) Take by mouth. (Patient not taking: Reported on 05/11/2022) Wumuitqi-Fm-Gsv-Fe-FA ( VITAMIN) tab Take 1 tablet by mouth. (Patient not taking: Reported on 05/11/2022) escitalopram oxalate (LEXAPRO) 20 mg tablet Take 1 tablet by mouth once daily. (Patient not taking: Reported on 10/07/2021 ) FAMILY HISTORY Problem Relation Age of Onset Allergies Mother Anxiety disorder Mother other (brain tumor benign) Father other (Depression, anxiety , panic attacks) Father Hypertension Father No Known Problems Sister No Known Problems Sister No Known Problems Brother No Known Problems Brother No Known Problems Brother Hypertension Maternal Grandmother Lipids Maternal Grandmother other (Depression) Maternal Grandmother Breast Cancer Maternal Grandmother Asthma Maternal Grandfather COPD Maternal Grandfather Heart Paternal Grandmother COPD Paternal Grandfather Liver Disease Paternal Grandfather No Known Problems Daughter Social History Tobacco Use Smoking status: Never Smokeless tobacco: Never Vaping Use Vaping status: Never Used Substance Use Topics Alcohol use: No Drug use: No Physical Exam Vitals and nursing note reviewed. Exam conducted with a database manager present. Constitutional: General: She is not in acute distress. Appearance: Normal appearance. She is not ill-appearing. Cardiovascular: Rate and Rhythm: Normal rate. Pulmonary: Effort: Pulmonary effort is normal. Genitourinary: General: Normal vulva. Exam position: Lithotomy position. Pubic Area: No rash or pubic lice. Labia: Right: No rash, tenderness or lesion. Left: No rash, tenderness or lesion. Vagina: No signs of injury. No vaginal discharge, erythema, tenderness, bleeding or lesions. Cervix: Discharge present. No lesion, erythema or cervical bleeding. Skin: General: Skin is warm and dry. Findings: No erythema or rash. Neurological: Mental Status: She is alert. General: Patient comfortable during exam. : Vaginal tissues healthy, no erythema or lesions noted; cervix with white, thick discharge. Skin: Two small skin tags on left upper thigh near perineal area. {1. Urinary frequency (R35.0) - Urine dip showed trace hematuria; not strongly indicative of infection. - Sent urine sample to lab for culture. - Will follow up with results and treat as indicated. 2. Screening for STD (sexually transmitted disease) (Z11.3) - Performed vaginal exam; vaginal tissues appear healthy with no erythema or lesions noted. - Cervix has some white, thick discharge. - Obtained swabs for STD screening. - Will notify patient of results and initiate treatment if necessary. 3. Cutaneous skin tags (L91.8) - Two small skin tags observed on the left upper thigh near the perineal area. - No treatment required at this time but referral entered for dematology if patient wishes to have these removed. . Office Visit on 12/09/2024 Component Date Value Ref Range Status GLUCOSE UA (POCT) 12/09/2024 Negative Negative mg/dL Final BILIRUBIN UA (POCT) 12/09/2024 Negative Negative Final KETONE UA (POCT) 12/09/2024 Negative Negative mg/dL Final SPECIFIC GRAVITY UA (POCT) 12/09/2024 1.015 1.005 - 1.030 Final HEMOGLOBIN/BLOOD UA (POCT) 12/09/2024 Trace-intact (A) Negative Final PH UA (POCT) 12/09/2024 7.0 4.5 - 8.0 Final PROTEIN UA (POCT) 12/09/2024 Negative Negative mg/dL Final UROBILINOGEN UA (POCT) 12/09/2024 0.2 Normal E.U./dL Final NITRITE UA (POCT) 12/09/2024 Negative Negative Final LEUKOCYTES UA (POCT) 12/09/2024 Negative Negative Final COLOR UA (POCT) 12/09/2024 Yellow Final CLARITY UA (POCT) 12/09/2024 Clear Final - Follow-up with your PCP in 3-5 days if symptoms have not improved or sooner if symptoms worsen - Discussed red flags and need for immediate medical evaluation if any occur. - Discussed supportive care treatment with fluids, rest and analgesia. - Discussed expected course of illness Nicolasa Dickens APRN.[employer] and Recording using Rapp[employer] software for draft documentation of the visit was discussed with the patient/authorized ict sales representative; all questions welcomed and answered. Patient/authorized ict sales representative agreed to proceed Disposition The patient was discharged. Procedures documented in this encounter [facility] 09-18-2024 Nava Gracia - 09/18/2024 12:50 PM EST ASSESSMENT/PLAN: 1. Sore throat - ICD9: 462, ICD10: J02.9 - Rapid Strep negative in the office today - Discussed supportive care treatment with fluids, rest and analgesia. - The patient may also use OTC decongestants prn, OTC cough and cold meds as needed, and warm salt water gargles, throat lozenges and/or OTC throat spray as needed. - The patient should follow up in 3-5 days if symptoms persist or worsen - STREP A MOLECULAR (POC) SORE THROAT INSTRUCTIONS SORE THROAT OVERVIEW - Sore throat is a common problem during childhood, and is usually the result of a bacterial or viral infection. Although sore throat usually resolves without complications, it sometimes requires treatment with an antibiotic. There are some less common causes of sore throat that are serious or even life-threatening. This topic will discuss the most common causes and treatments of sore throat in children, as well as the warning signs of more serious conditions. SORE THROAT CAUSES - The most likely cause of a child's sore throat depends upon the child's age, the season, and the geographic area. While viruses are the most common cause of sore throat, bacteria are another common cause. Bacteria and viruses are spread from one person to another through hand contact. Hands get contaminated when the sick individual touches their nose or mouth and then touches another person directly (nqfj-ak-uocx contact) or indirectly (zxxq-qe-skszim, such as doorknob, telephone, toys). It is difficult to determine the cause of sore throat based upon symptoms alone; an examination and laboratory test are recommended in most cases Viruses - There are many viruses that can cause pain and swelling of the throat. The most common include viruses that cause sore throat as part of an upper respiratory infection, such as the common cold. Other viruses that cause sore throat include influenza, adenovirus, and María-Machado virus (the cause of mononucleosis). Symptoms - Symptoms that may occur with a viral infection can include a runny nose and congestion, irritation or redness of the eyes, cough, hoarseness, soreness in the roof of the mouth, a skin rash, or diarrhea. In addition, children with viral infections may have a fever and may feel miserable. A high fever does not necessarily mean that the child has a bacterial infection. Group A streptococcus - Group A streptococcus (GAS) is the name of the bacterium that causes strep throat. Although other bacteria can cause a sore throat, GAS is the most common bacterial cause; up to 30 percent of children with a sore throat will have GAS. Strep throat usually occurs during the winter and early spring, and is most common in school-age children and their younger siblings. Symptoms - Symptoms of strep throat in children older than 3 years often develop suddenly and include fever (temperature ?100.4 F or 38 C), headache, abdominal pain, nausea, and vomiting. Other symptoms can include swollen glands in the neck, white patches of pus in the back or sides of the throat, small red spots on the roof of the mouth, and swelling of the uvula. A cough and cold are not commonly seen in children with strep throat. Strep throat is uncommon in children younger than age 2 to 3 years. However, GAS infection can occur in younger children, and may cause a runny nose and congestion that is prolonged, low-grade fever (?101 F or 38.3 C), and tender glands in the neck. Infants younger than 1 year may be fussy and have a decreased appetite and low-grade fever. SORE THROAT TREATMENT - The treatment of sore throat depends upon the cause; strep throat is treated with an antibiotic while viral pharyngitis is treated with rest, pain relievers, and other measures to reduce symptoms. Strep throat - Strep throat is usually treated with an antibiotic, such as penicillin, or an antibiotic similar to penicillin (eg, amoxicillin). Children who are allergic to penicillin will be given an alternate antibiotic. The antibiotic is usually given in pill or liquid form two or three times per day. A one-time injection is also available, and may be recommended if a child is unwilling to take an oral medication. After completing 24 hours of antibiotics, the child is no longer contagious and may return to school. Symptoms usually improve within 1 to 2 days. However, it is important for the child to finish the entire course of treatment (usually 10 days). If a child does not begin to improve or worsens within 3 days, the child should be reevaluated. Throat pain can be treated with a non-prescription pain medication, if needed. (See 'Pain medications' below.) In addition, parents should monitor their child for dehydration, which can develop if the child is not willing to drink or eat due to a sore throat. (See 'Monitor for dehydration' below.) Viral throat pain - Sore throat caused by viral infections usually last 4 to 5 days. During this time, treatments to reduce pain may be helpful but will not help to eliminate the virus. Antibiotics do not improve throat pain caused by a virus and are not recommended. A child with a viral infection is usually allowed to return to school when there has been no fever for 24 hours and the child feels well enough to pay attention. Pain medications - Throat pain can be treated with a mild pain reliever such as acetaminophen (Tylenol ) or a non-steroidal anti-inflammatory agent such as ibuprofen (Motrin ). These medications should be dosed according to weight, not age. Aspirin is not recommended for children <18 years due to the risk of a potentially serious condition known as Davis syndrome. Monitor for dehydration - Some children with a sore throat are reluctant to drink or eat due to pain. Drinking less fluid can lead to dehydration. To reduce the risk of dehydration, parents can offer warm or cold liquids. (See 'Other interventions' below.) Signs and symptoms of mild dehydration include a slightly dry mouth, increased thirst, and decreased urine output (one wet diaper or void in six hours). Signs of moderate or severe dehydration include decreased urine output (less than one wet diaper or void in six hours), lack of tears when crying, dry mouth, and sunken eyes. A child who is moderately or severely dehydrated should be evaluated by a healthcare provider as soon as possible to determine if treatment is needed. Oral rinses- Salt-water gargles are an old stand-by for relief of throat pain. It is not clear if this treatment is effective, but it is unlikely to be harmful. Most recipes suggest 1/4 to 1/2 teaspoon of salt per cup (8 ounces) of warm water. The water should be gargled and then spit out (not swallowed). Children younger than six to eight years are not able to gargle properly. An oral rinse composed of equal parts of diphenhydramine (Benadryl liquid) and Maalox (magnesium hydroxide, aluminum hydroxide, and simethicone) may be helpful for pain caused by a sore mouth or ulcers in the mouth. Children older than six to eight years may swish and spit (not swallow) the mixture. Sprays - Sprays containing topical anesthetics are available to treat sore throat. However, such sprays are no more effective than sucking on hard candy. In addition, a common anesthetic ingredient, benzocaine, can cause allergic reactions. We do not recommend throat sprays for children. Lozenges - A variety of medicated throat lozenges are available to relieve dryness or pain. However, it is not clear that lozenges work any better than hard candy. We do not recommend throat lozenges for children, especially children younger than 3 to 4 years, who can choke. Sucking on hard candy may provide some relief for children older than 3 to 4 years, who are not at risk for choking. Other interventions - Other interventions include sipping warm beverages (eg, honey or lemon tea, chicken soup), cold beverages, or eating cold or frozen desserts (eg, ice cream, popsicles). These treatments are safe for children. Honey should not be given to children younger than 12 months due to the potential risk of botulism poisoning. Alternative therapies - Health food stores, vitamin outlets, and Internet Web sites offer alternative treatments for relief of sore throat pain. We do not recommend these treatments due to the risks of contamination with pesticides/herbicides, inaccurate labeling and dosing information, and a lack of studies showing that these treatments are safe and effective. SORE THROAT PREVENTION - Hand washing is an essential and highly effective way to prevent the spread of infection. Hands should be wet with water and plain soap, and rubbed together for 15 to 30 seconds. Special attention should be paid to the fingernails, between the fingers, and the wrists. Hands should be rinsed thoroughly, and dried with a single use towel. Alcohol-based hand rubs are a good alternative for disinfecting hands if a sink is not available. Hand rubs should be spread over the entire surface of hands, fingers, and wrists until dry, and may be used several times. These rubs can be used repeatedly without skin irritation or loss of effectiveness. Hand rubs are available as a liquid or wipe in small, portable sizes that are easy to carry in a pocket or handbag. When a sink is available, visibly soiled hands should be washed with soap and water. Hands should be washed after coughing, blowing the nose or sneezing. While it is not always possible to limit contact with a person who is sick, avoiding touching the eyes, nose, or mouth after direct contact can help to prevent the spread of infection. In addition, tissues should be used to cover the mouth when sneezing or coughing. These used tissues should be disposed of promptly. Sneezing/coughing into the sleeve of one's clothing (at the inner elbow) is another means of containing sprays of saliva and secretions and has the advantage of not contaminating the hands. WHEN TO SEEK HELP - Parents of a child with throat pain and one or more of the following should contact their healthcare provider immediately: Difficulty swallowing or breathing Excessive drooling in an or young child Temperature ?101 F or 38.3 C Swelling of the neck Child is unable or unwilling to drink or eat Voice sounds muffled Child has a stiff neck or difficulty opening the mouth WHERE TO GET MORE INFORMATION - Your child's healthcare provider is the best source of information for questions and concerns related to your child's medical problem. This article will be updated as needed every four months on our web site ([email or web address]). Information below was obtained from Up to date Last literature review version 19.2: November 2010 This topic last updated: March 04, 2010 documented in this encounter [facility] 09-18-2024 Note HNO ID: [id number] Author: NICOLASA DICKENS APRN.[employer] Service: ? Author Type: Nurse Practitioner Type: Progress Notes Filed: 09/18/2024 13:22 Note Text: [facility] Subjective Cedric Mejia White is a 29 year old female. HPI Pt is a 29 y/o female who presents with sore throat and noticed white spots on her tonsils x this am. Pt reports that her daughter was recently diagnosed with strep pharyngitis. No reports of fever but reports body aches and chills. No reports of cough, nasal congestion, shortness of breath. She does reports mildly tender left ear. Pt reports that she had one dose of metronidazole left from a prior BV infection that she took this am with no relief. Review of Systems Constitutional: Positive for chills and fatigue. HENT: Positive for ear pain (L > R) and sore throat. Eyes: Negative. Respiratory: Negative. Cardiovascular: Negative. Gastrointestinal: Negative. Objective BP 126/80 Pulse 73 Temp 36.9 ?C (98.4 ?F) Resp 16 Wt 132.1 kg (291 lb 3.6 oz) LMP 07/05/2024 (Within Days) SpO2 95% BMI 51.59 kg/m? PAST MEDICAL HISTORY Diagnosis Date Chlamydia 2013 and 2016 Depression Infertility, female Panic attacks depression PAST SURGICAL HISTORY Procedure Laterality Date DELIVERY ONLY 04/12/2017 PAST SURGICAL HISTORY OF oral (gum) surgery ALLERGIES Patient has no known allergies. MEDICATIONS venlafaxine ER (EFFEXOR XR) 150 mg 24 hr capsule Take 150 mg by mouth every morning. traZODone (DESYREL) 50 mg tablet Take 50 mg by mouth at bedtime as needed. pantoprazole DR (PROTONIX) 40 mg tablet Take 40 mg by mouth once daily. Averiashbltxjzy-Cnozlahko-NH (BROMFED DM) 2-30-10 mg/5 mL syrup Take 5 mL by mouth four times a day as needed. (Patient not taking: Reported on 09/18/2024) VRAYLAR 1.5 mg capsule Take 1 capsule by mouth every afternoon. (Patient not taking: Reported on 08/03/2024) venlafaxine (EFFEXOR) 75 mg tablet TAKE 1 TABLET BY MOUTH 2 TIMES A DAY IN THE MORNING AND EVENING (Patient not taking: Reported on 08/03/2024) furosemide (LASIX) 20 mg tablet Take 20 mg by mouth. (Patient not taking: Reported on 08/03/2024) metoprolol tartrate, short acting, (LOPRESSOR) 25 mg tablet TAKE 1/2 TABLET BY MOUTH 2 TIMES A DAY (Patient not taking: Reported on 09/18/2024) SPRINTEC 0.25-35 mg-mcg per tablet (Patient not taking: Reported on 08/03/2024) omeprazole (PRILOSEC) 20 mg capsule Take 20 mg by mouth once daily. (Patient not taking: Reported on 08/03/2024) busPIRone (BUSPAR) 10 mg tablet (Patient not taking: Reported on 08/03/2024) citalopram (CELEXA) 40 mg tablet (Patient not taking: Reported on 08/03/2024) oxyCODONE-acetaminophen (PERCOCET) 5-325 mg tablet (Patient not taking: Reported on 05/11/2022) labetalol (TRANDATE) 100 mg tablet (Patient not taking: Reported on 05/11/2022) ibuprofen (MOTRIN) 600 mg tablet (Patient not taking: Reported on 05/11/2022) ferrous sulfate (IRON ORAL) Take by mouth. (Patient not taking: Reported on 08/03/2024) docusate sodium (COLACE ORAL) Take by mouth. (Patient not taking: Reported on 05/11/2022) Kclgetcg-Dz-Oyd-Fe-FA ( VITAMIN) tab Take 1 tablet by mouth. (Patient not taking: Reported on 05/11/2022) escitalopram oxalate (LEXAPRO) 20 mg tablet Take 1 tablet by mouth once daily. (Patient not taking: Reported on 10/07/2021 ) FAMILY HISTORY Problem Relation Age of Onset Allergies Mother Anxiety disorder Mother other (brain tumor benign) Father other (Depression, anxiety , panic attacks) Father Hypertension Father No Known Problems Sister No Known Problems Sister No Known Problems Brother No Known Problems Brother No Known Problems Brother Hypertension Maternal Grandmother Lipids Maternal Grandmother other (Depression) Maternal Grandmother Breast Cancer Maternal Grandmother Asthma Maternal Grandfather COPD Maternal Grandfather Heart Paternal Grandmother COPD Paternal Grandfather Liver Disease Paternal Grandfather No Known Problems Daughter Social History Tobacco Use Smoking status: Never Smokeless tobacco: Never Vaping Use Vaping status: Never Used Substance Use Topics Alcohol use: No Drug use: No Physical Exam Constitutional: General: She is awake. HENT: Head: Normocephalic. Right Ear: Hearing and tympanic membrane normal. Left Ear: Hearing and tympanic membrane normal. Nose: Nose normal. Mouth/Throat: Pharynx: Pharyngeal swelling and posterior oropharyngeal erythema present. Tonsils: Tonsillar exudate (mild, predominately on R tonsil) present. Eyes: Conjunctiva/sclera: Conjunctivae normal. Cardiovascular: Rate and Rhythm: Normal rate and regular rhythm. Pulmonary: Effort: Pulmonary effort is normal. Breath sounds: Normal breath sounds. Lymphadenopathy: Cervical: Cervical adenopathy present. Right cervical: Superficial cervical adenopathy present. Neurological: Mental Status: (more content not included)... [facility] 09-18-2024 History of Presen t illness Narrative [facility] Subjective Cedric R White is a 29 year old female. HPI Pt is a 29 y/o female who presents with sore throat and noticed white spots on her tonsils x this am. Pt reports that her daughter was recently diagnosed with strep pharyngitis. No reports of fever but reports body aches and chills. No reports of cough, nasal congestion, shortness of breath. She does reports mildly tender left ear. Pt reports that she had one dose of metronidazole left from a prior BV infection that she took this am with no relief. Review of Systems Constitutional: Positive for chills and fatigue. HENT: Positive for ear pain (L > R) and sore throat. Eyes: Negative. Respiratory: Negative. Cardiovascular: Negative. Gastrointestinal: Negative. Objective BP 126/80 Pulse 73 Temp 36.9 C (98.4 F) Resp 16 Wt 132.1 kg (291 lb 3.6 oz) LMP 07/05/2024 (Within Days) SpO2 95% BMI 51.59 kg/m PAST MEDICAL HISTORY Diagnosis Date Chlamydia 2013 and 2016 Depression Infertility, female Panic attacks depression PAST SURGICAL HISTORY Procedure Laterality Date DELIVERY ONLY 04/12/2017 PAST SURGICAL HISTORY OF oral (gum) surgery ALLERGIES Patient has no known allergies. MEDICATIONS venlafaxine ER (EFFEXOR XR) 150 mg 24 hr capsule Take 150 mg by mouth every morning. traZODone (DESYREL) 50 mg tablet Take 50 mg by mouth at bedtime as needed. pantoprazole DR (PROTONIX) 40 mg tablet Take 40 mg by mouth once daily. Bjhvthrsbgzipbk-Alhuajnsi-TV (BROMFED DM) 2-30-10 mg/5 mL syrup Take 5 mL by mouth four times a day as needed. (Patient not taking: Reported on 09/18/2024) VRAYLAR 1.5 mg capsule Take 1 capsule by mouth every afternoon. (Patient not taking: Reported on 08/03/2024) venlafaxine (EFFEXOR) 75 mg tablet TAKE 1 TABLET BY MOUTH 2 TIMES A DAY IN THE MORNING AND EVENING (Patient not taking: Reported on 08/03/2024) furosemide (LASIX) 20 mg tablet Take 20 mg by mouth. (Patient not taking: Reported on 08/03/2024) metoprolol tartrate, short acting, (LOPRESSOR) 25 mg tablet TAKE 1/2 TABLET BY MOUTH 2 TIMES A DAY (Patient not taking: Reported on 09/18/2024) SPRINTEC 0.25-35 mg-mcg per tablet (Patient not taking: Reported on 08/03/2024) omeprazole (PRILOSEC) 20 mg capsule Take 20 mg by mouth once daily. (Patient not taking: Reported on 08/03/2024) busPIRone (BUSPAR) 10 mg tablet (Patient not taking: Reported on 08/03/2024) citalopram (CELEXA) 40 mg tablet (Patient not taking: Reported on 08/03/2024) oxyCODONE-acetaminophen (PERCOCET) 5-325 mg tablet (Patient not taking: Reported on 05/11/2022) labetalol (TRANDATE) 100 mg tablet (Patient not taking: Reported on 05/11/2022) ibuprofen (MOTRIN) 600 mg tablet (Patient not taking: Reported on 05/11/2022) ferrous sulfate (IRON ORAL) Take by mouth. (Patient not taking: Reported on 08/03/2024) docusate sodium (COLACE ORAL) Take by mouth. (Patient not taking: Reported on 05/11/2022) Ldjxdcpe-Au-Uwm-Fe-FA ( VITAMIN) tab Take 1 tablet by mouth. (Patient not taking: Reported on 05/11/2022) escitalopram oxalate (LEXAPRO) 20 mg tablet Take 1 tablet by mouth once daily. (Patient not taking: Reported on 10/07/2021 ) FAMILY HISTORY Problem Relation Age of Onset Allergies Mother Anxiety disorder Mother other (brain tumor benign) Father other (Depression, anxiety , panic attacks) Father Hypertension Father No Known Problems Sister No Known Problems Sister No Known Problems Brother No Known Problems Brother No Known Problems Brother Hypertension Maternal Grandmother Lipids Maternal Grandmother other (Depression) Maternal Grandmother Breast Cancer Maternal Grandmother Asthma Maternal Grandfather COPD Maternal Grandfather Heart Paternal Grandmother COPD Paternal Grandfather Liver Disease Paternal Grandfather No Known Problems Daughter Social History Tobacco Use Smoking status: Never Smokeless tobacco: Never Vaping Use Vaping status: Never Used Substance Use Topics Alcohol use: No Drug use: No Physical Exam Constitutional: General: She is awake. HENT: Head: Normocephalic. Right Ear: Hearing and tympanic membrane normal. Left Ear: Hearing and tympanic membrane normal. Nose: Nose normal. Mouth/Throat: Pharynx: Pharyngeal swelling and posterior oropharyngeal erythema present. Tonsils: Tonsillar exudate (mild, predominately on R tonsil) present. Eyes: Conjunctiva/sclera: Conjunctivae normal. Cardiovascular: Rate and Rhythm: Normal rate and regular rhythm. Pulmonary: Effort: Pulmonary effort is normal. Breath sounds: Normal breath sounds. Lymphadenopathy: Cervical: Cervical adenopathy present. Right cervical: Superficial cervical adenopathy present. Neurological: Mental Status: She is alert. Assessment and Plan Differential Diagnoses - sore throat is more likely for the following reason(s): suggested by H&P - strep pharyngitis is less likely for the following reason(s): strep test negative, laboratory studies not suggestive Disposition The patient was discharged. OTC Medications were advised: Procedures ASSESSMENT/PLAN: 1. Sore throat - ICD9: 462, ICD10: J02.9 - Rapid Strep negative in the office today - Discussed supportive care treatment with fluids, rest and analgesia. - The patient may also use OTC decongestants prn, OTC cough and cold meds as needed, and warm salt water gargles, throat lozenges and/or OTC throat spray as needed. - The patient should follow up in 3-5 days if symptoms persist or worsen - STREP A MOLECULAR (POC) Nava Schmitt TEACHING PROVIDER (Physician/PA/PAYABLE REPRESENTATIVE) NOTE OF PERSONAL INVOLVEMENT IN CARE: I have personally seen and examined the patient and performed the medical decision-making components. I have reviewed the Advanced Practice Registered Nurse (PAYABLE REPRESENTATIVE) Student's documentation and verified the findings in the note as written. Any additions or changes are noted in bold/italics. Signature: Nicolasa Dickens Date: 09/18/2024 Time: 1:22 PM documented in this encounter [facility] 09-06-2024 Note SARS-COV-2 (AGENT OF COVID-19) RNA: Not detected INFLUENZA A RNA: Not detected INFLUENZA B RNA: Not detected RESPIRATORY SYNCYTIAL VIRUS (RSV) RNA: Not detected [facility] Comment on above: Performed By: #### 6 30-4 #### [facility] CLIA [id number] [address] [place] [address] [place] 09-06-2024 Instructions Nicolasa Dickens APRN.[employer]NER - 09/06/2024 5:26 PM EST ASSESSMENT/PLAN: 1. Viral URI with cough - ICD9: 465.9, ICD10: J06.9 (primary diagnosis) - Discussed viral etiology and rationale for treatment. - Symptomatic treatment with prn analgesia - Supportive care with fluids and rest - The patient may also use OTC decongestants prn, OTC cough and cold meds as needed, and warm salt water gargles, throat lozenges and/or OTC throat spray as needed. 2. Flu-like symptoms - ICD9: 780.99, ICD10: R68.89 - COVID & INFLUENZA A/B & RSV PCR, ROUTINE - will reach out to patient regarding results of COVID/Flu/RSV testing - Symptomatic treatment with prn analgesia - Supportive care with fluids and rest - The patient may also use OTC decongestants prn, OTC cough and cold meds as needed, and warm salt water gargles, throat lozenges and/or OTC throat spray as needed. Nava Schmitt TEACHING PROVIDER (Physician/PA/PAYABLE REPRESENTATIVE) NOTE OF PERSONAL INVOLVEMENT IN CARE: I have personally seen and examined the patient and performed the medical decision-making components. I have reviewed the Advanced Practice Registered Nurse (PAYABLE REPRESENTATIVE) Student's documentation and verified the findings in the note as written. Any additions or changes are noted in bold/italics. Signature: Nicolasa Dickens Date: 09/06/2024 Time: 5:26 PM Treatment for Viral Upper Respiratory Tract Infections Your body will kill off the virus by itself. Additionally, you can prime your body's immune system. This may help you get better more quickly. Drink lots of fluids Make sure you are eating well Get plenty of rest We do not have any medications that kill off these viruses. Antibiotics are used to treat bacterial infections; however, they are not active against viral infections. There are some things that might help you feel better, though. Vaporizers, humidifiers, hot showers, and hot fluids help open respiratory and sinus passages [facility] [place] may offer relief of nasal and head congestion Mike's Vapor Rub may relieve congestion Tylenol and Advil help control fevers and headaches Salt water gargles help relieve sore throats Chloraceptic spray or throat lozenges may also help relieve sore throat symptoms Occasionally, viral infections turn into something more serious. You should see your doctor or return to the Urgent Care if: You have fevers for longer than five days You have fevers above 102 degrees You are still sick after 10 days You have shortness of breath or wheezing After several days you are getting worse rather than better documented in this encounter [facility] 09-06-2024 Note HNO ID: [id number] Author: NICOLASA DICKENS APRN.[employer] Service: ? Author Type: Nurse Practitioner Type: Progress Notes Filed: 09/06/2024 17:26 Note Text: Subjective Cough Associated symptoms include chills and sore throat. Pertinent negatives include no shortness of breath. Pt is a 29 y/o female who presents with sore throat, congestion, cough, postnasal drip and chills x 3 days. No reports of fever. Cough is non-productive. Pt reports maxillary sinus pressure with fullness in ears L > R. Per pt, daughter was recently diagnosed with double ear infection. Pt also reports recently taking amoxicillin 3 weeks ago for similar symptoms. Review of Systems Constitutional: Positive for chills and malaise/fatigue. Negative for fever. HENT: Positive for congestion, sinus pain and sore throat. Negative for ear discharge. Eyes: Negative. Respiratory: Positive for cough and sputum production. Negative for shortness of breath. Cardiovascular: Negative. Gastrointestinal: Negative for abdominal pain, diarrhea, nausea and vomiting. Genitourinary: Negative. Musculoskeletal: Negative. Neurological: Negative. BP 132/90 Pulse 98 Temp 36.8 ?C (98.2 ?F) (Left Tympanic) Resp 16 Wt 135.4 kg (298 lb 8.1 oz) LMP 07/05/2024 (Within Days) SpO2 99% BMI 52.88 kg/m? PAST MEDICAL HISTORY Diagnosis Date Chlamydia 2013 and 2016 Depression Infertility, female Panic attacks depression PAST SURGICAL HISTORY Procedure Laterality Date DELIVERY ONLY 04/12/2017 PAST SURGICAL HISTORY OF oral (gum) surgery ALLERGIES Patient has no known allergies. MEDICATIONS venlafaxine ER (EFFEXOR XR) 150 mg 24 hr capsule Take 150 mg by mouth every morning. traZODone (DESYREL) 50 mg tablet Take 50 mg by mouth at bedtime as needed. Pgsnifpcimxrnbw-Kpojwfjyt-ZO (BROMFED DM) 2-30-10 mg/5 mL syrup Take 5 mL by mouth four times a day as needed. (Patient not taking: Reported on 09/06/2024) VRAYLAR 1.5 mg capsule Take 1 capsule by mouth every afternoon. (Patient not taking: Reported on 08/03/2024) venlafaxine (EFFEXOR) 75 mg tablet TAKE 1 TABLET BY MOUTH 2 TIMES A DAY IN THE MORNING AND EVENING (Patient not taking: Reported on 08/03/2024) pantoprazole DR (PROTONIX) 40 mg tablet Take 40 mg by mouth once daily. furosemide (LASIX) 20 mg tablet Take 20 mg by mouth. (Patient not taking: Reported on 08/03/2024) metoprolol tartrate, short acting, (LOPRESSOR) 25 mg tablet TAKE 1/2 TABLET BY MOUTH 2 TIMES A DAY SPRINTEC 0.25-35 mg-mcg per tablet (Patient not taking: Reported on 08/03/2024) omeprazole (PRILOSEC) 20 mg capsule Take 20 mg by mouth once daily. (Patient not taking: Reported on 08/03/2024) busPIRone (BUSPAR) 10 mg tablet (Patient not taking: Reported on 08/03/2024) citalopram (CELEXA) 40 mg tablet (Patient not taking: Reported on 08/03/2024) oxyCODONE-acetaminophen (PERCOCET) 5-325 mg tablet (Patient not taking: Reported on 05/11/2022) labetalol (TRANDATE) 100 mg tablet (Patient not taking: Reported on 05/11/2022) ibuprofen (MOTRIN) 600 mg tablet (Patient not taking: Reported on 05/11/2022) ferrous sulfate (IRON ORAL) Take by mouth. (Patient not taking: Reported on 08/03/2024) docusate sodium (COLACE ORAL) Take by mouth. (Patient not taking: Reported on 05/11/2022) Okyjppew-At-Yqz-Fe-FA ( VITAMIN) tab Take 1 tablet by mouth. (Patient not taking: Reported on 05/11/2022) escitalopram oxalate (LEXAPRO) 20 mg tablet Take 1 tablet by mouth once daily. (Patient not taking: Reported on 10/07/2021 ) FAMILY HISTORY Problem Relation Age of Onset Allergies Mother Anxiety disorder Mother other (brain tumor benign) Father other (Depression, anxiety , panic attacks) Father Hypertension Father No Known Problems Sister No Known Problems Sister No Known Problems Brother No Known Problems Brother No Known Problems Brother Hypertension Maternal Grandmother Lipids Maternal Grandmother other (Depression) Maternal Grandmother Breast Cancer Maternal Grandmother Asthma Maternal Grandfather COPD Maternal Grandfather Heart Paternal Grandmother COPD Paternal Grandfather Liver Disease Paternal Grandfather No Known Problems Daughter Social History Tobacco Use Smoking status: Never Smokeless tobacco: Never Vaping Use Vaping status: Never Used Substance Use Topics Alcohol use: No Drug use: No Objective Physical Exam Constitutional: General: She is awake. HENT: Head: Normocephalic. Right Ear: Hearing and tympanic membrane normal. Left Ear: Hearing and tympanic membrane normal. Nose: Congestion present. Right Sinus: Maxillary sinus tenderness present. Left Sinus: Maxillary sinus tenderness present. Mouth/Throat: Pharynx: Pharyngeal swelling and posterior oropharyngeal erythema present. Eyes: Conjunctiva/sclera: Conjunctivae normal. Cardiovascular: Rate and Rhythm: Normal rate and regular rhythm. Pulmonary: (more content not included)... [facility] 09-06-2024 History of Presen t illness Narrative Subjective Cough Associated symptoms include chills and sore throat. Pertinent negatives include no shortness of breath. Pt is a 29 y/o female who presents with sore throat, congestion, cough, postnasal drip and chills x 3 days. No reports of fever. Cough is non-productive. Pt reports maxillary sinus pressure with fullness in ears L > R. Per pt, daughter was recently diagnosed with double ear infection. Pt also reports recently taking amoxicillin 3 weeks ago for similar symptoms. Review of Systems Constitutional: Positive for chills and malaise/fatigue. Negative for fever. HENT: Positive for congestion, sinus pain and sore throat. Negative for ear discharge. Eyes: Negative. Respiratory: Positive for cough and sputum production. Negative for shortness of breath. Cardiovascular: Negative. Gastrointestinal: Negative for abdominal pain, diarrhea, nausea and vomiting. Genitourinary: Negative. Musculoskeletal: Negative. Neurological: Negative. BP 132/90 Pulse 98 Temp 36.8 C (98.2 F) (Left Tympanic) Resp 16 Wt 135.4 kg (298 lb 8.1 oz) LMP 07/05/2024 (Within Days) SpO2 99% BMI 52.88 kg/m PAST MEDICAL HISTORY Diagnosis Date Chlamydia 2013 and 2016 Depression Infertility, female Panic attacks depression PAST SURGICAL HISTORY Procedure Laterality Date DELIVERY ONLY 04/12/2017 PAST SURGICAL HISTORY OF oral (gum) surgery ALLERGIES Patient has no known allergies. MEDICATIONS venlafaxine ER (EFFEXOR XR) 150 mg 24 hr capsule Take 150 mg by mouth every morning. traZODone (DESYREL) 50 mg tablet Take 50 mg by mouth at bedtime as needed. Wxhvafrytgoubjb-Ozrrmwjil-ST (BROMFED DM) 2-30-10 mg/5 mL syrup Take 5 mL by mouth four times a day as needed. (Patient not taking: Reported on 09/06/2024) VRAYLAR 1.5 mg capsule Take 1 capsule by mouth every afternoon. (Patient not taking: Reported on 08/03/2024) venlafaxine (EFFEXOR) 75 mg tablet TAKE 1 TABLET BY MOUTH 2 TIMES A DAY IN THE MORNING AND EVENING (Patient not taking: Reported on 08/03/2024) pantoprazole DR (PROTONIX) 40 mg tablet Take 40 mg by mouth once daily. furosemide (LASIX) 20 mg tablet Take 20 mg by mouth. (Patient not taking: Reported on 08/03/2024) metoprolol tartrate, short acting, (LOPRESSOR) 25 mg tablet TAKE 1/2 TABLET BY MOUTH 2 TIMES A DAY SPRINTEC 0.25-35 mg-mcg per tablet (Patient not taking: Reported on 08/03/2024) omeprazole (PRILOSEC) 20 mg capsule Take 20 mg by mouth once daily. (Patient not taking: Reported on 08/03/2024) busPIRone (BUSPAR) 10 mg tablet (Patient not taking: Reported on 08/03/2024) citalopram (CELEXA) 40 mg tablet (Patient not taking: Reported on 08/03/2024) oxyCODONE-acetaminophen (PERCOCET) 5-325 mg tablet (Patient not taking: Reported on 05/11/2022) labetalol (TRANDATE) 100 mg tablet (Patient not taking: Reported on 05/11/2022) ibuprofen (MOTRIN) 600 mg tablet (Patient not taking: Reported on 05/11/2022) ferrous sulfate (IRON ORAL) Take by mouth. (Patient not taking: Reported on 08/03/2024) docusate sodium (COLACE ORAL) Take by mouth. (Patient not taking: Reported on 05/11/2022) Fdvnkqxc-Wu-Srq-Fe-FA ( VITAMIN) tab Take 1 tablet by mouth. (Patient not taking: Reported on 05/11/2022) escitalopram oxalate (LEXAPRO) 20 mg tablet Take 1 tablet by mouth once daily. (Patient not taking: Reported on 10/07/2021 ) FAMILY HISTORY Problem Relation Age of Onset Allergies Mother Anxiety disorder Mother other (brain tumor benign) Father other (Depression, anxiety , panic attacks) Father Hypertension Father No Known Problems Sister No Known Problems Sister No Known Problems Brother No Known Problems Brother No Known Problems Brother Hypertension Maternal Grandmother Lipids Maternal Grandmother other (Depression) Maternal Grandmother Breast Cancer Maternal Grandmother Asthma Maternal Grandfather COPD Maternal Grandfather Heart Paternal Grandmother COPD Paternal Grandfather Liver Disease Paternal Grandfather No Known Problems Daughter Social History Tobacco Use Smoking status: Never Smokeless tobacco: Never Vaping Use Vaping status: Never Used Substance Use Topics Alcohol use: No Drug use: No Objective Physical Exam Constitutional: General: She is awake. HENT: Head: Normocephalic. Right Ear: Hearing and tympanic membrane normal. Left Ear: Hearing and tympanic membrane normal. Nose: Congestion present. Right Sinus: Maxillary sinus tenderness present. Left Sinus: Maxillary sinus tenderness present. Mouth/Throat: Pharynx: Pharyngeal swelling and posterior oropharyngeal erythema present. Eyes: Conjunctiva/sclera: Conjunctivae normal. Cardiovascular: Rate and Rhythm: Normal rate and regular rhythm. Pulmonary: Effort: Pulmonary effort is normal. Breath sounds: Normal breath sounds. Lymphadenopathy: Cervical: No cervical adenopathy. Neurological: Mental Status: She is alert. ASSESSMENT/PLAN: 1. Viral URI with cough - ICD9: 465.9, ICD10: J06.9 (primary diagnosis) - Discussed viral etiology and rationale for treatment. - Symptomatic treatment with prn analgesia - Supportive care with fluids and rest - The patient may also use OTC decongestants prn, OTC cough and cold meds as needed, and warm salt water gargles, throat lozenges and/or OTC throat spray as needed. 2. Flu-like symptoms - ICD9: 780.99, ICD10: R68.89 - COVID & INFLUENZA A/B & RSV PCR, ROUTINE - will reach out to patient regarding results of COVID/Flu/RSV testing - Symptomatic treatment with prn analgesia - Supportive care with fluids and rest - The patient may also use OTC decongestants prn, OTC cough and cold meds as needed, and warm salt water gargles, throat lozenges and/or OTC throat spray as needed. Nava Schmitt TEACHING PROVIDER (Physician/PA/PAYABLE REPRESENTATIVE) NOTE OF PERSONAL INVOLVEMENT IN CARE: I have personally seen and examined the patient and performed the medical decision-making components. I have reviewed the Advanced Practice Registered Nurse (PAYABLE REPRESENTATIVE) Student's documentation and verified the findings in the note as written. Any additions or changes are noted in bold/italics. Signature: Nicolasa Dickens Date: 09/06/2024 Time: 5:26 PM documented in this encounter [facility] 08-06-2024 Telephone encounter Note Patient given results and verbalized understanding of instructions given. Michelle Redman MA [facility] 08-06-2024 Miscellaneous Notes Patient given results and verbalized understanding of instructions given. Michelle Redman MA Unable to reach patient. Mailbox full/ Please try again later. Angelica Yadav LPN Images from the original note were not included. Please advise patient of prior telephone encounter, Which she has not seen (Think an error with routing initial message) documented in this encounter [facility] 08-05-2024 Telephone encounter Note Unable to reach patient. Mailbox full/ Please try again later. Angelica Yadav LPN [facility] 08-05-2024 Telephone encounter Note Images from the original note were not included. Please advise patient of prior telephone encounter, Which she has not seen (Think an error with routing initial message) [facility] Work Phone: 08-05-2024 Telephone encounter Note Images from the original note were not included. Please advise of above. [facility] Work Phone: 08-05-2024 Miscellaneous Notes Images from the original note were not included. Please advise of above. documented in this encounter [facility] 08-03-2024 Note HNO ID: [id number] Author: YURY WHITE APRN.ERICA Service: ? Author Type: Nurse Practitioner Type: Progress Notes Filed: 08/03/2024 11:06 Note Text: CC: Patient presents with: Cough: Sinus, congestion x 2 days HPI: Cedric Hope is a 29 year old female who presents to the office with complaint of head congestion, cough, nonproductive, and sore throat for a few days. Symptoms are worsening Associated symptoms includes body aches. Denies nausea, vomiting , and diarrhea. Treatments tried include nothing so far. with no relief of symptoms. Sick contacts: unknown. History of asthma, frequent episodes of bronchitis, chronic bronchitis, bronchiectasis or COPD: No Smoker: No Seasonal/environmental allergies: No The ROS is otherwise negative. The patient's pmh, medications, allergies, and past visits are reviewed. PHYSICAL EXAM: BP 132/78 Pulse 91 Temp 36.9 ?C (98.4 ?F) Resp 21 Wt 133.9 kg (295 lb 3.1 oz) LMP 07/05/2024 (Within Days) SpO2 100% BMI 52.29 kg/m? General appearance: alert, cooperative, pleasant, in no acute distress Head: Normocephalic Eyes: EOM's intact, conjunctiva pink and moist, no icterus, sclera white, non-injected Ears: Right ear: External ear/canal- Normal, TM - erythematous. Left ear: External ear/canal- Normal, TM - clear with good landmarks Oropharynx:moderate erythema, without exudates present, +2 uvula midline Neck: mild cervical adenopathy Heart: Negative. RRR without obvious murmur, gallop, or rubs. No ectopy. Lungs: clear to auscultation, without rales or wheeze, good air exchange PAST MEDICAL HISTORY Diagnosis Date Chlamydia 2013 and 2016 Depression Infertility, female Panic attacks depression PAST SURGICAL HISTORY Procedure Laterality Date DELIVERY ONLY 04/12/2017 PAST SURGICAL HISTORY OF oral (gum) surgery ALLERGIES Patient has no known allergies. MEDICATIONS fluticasone (FLONASE) 50 mcg/actuation nasal spray Use 2 Sprays in each nostril once daily. Rinse mouth after use. venlafaxine ER (EFFEXOR XR) 150 mg 24 hr capsule Take 150 mg by mouth every morning. traZODone (DESYREL) 50 mg tablet Take 50 mg by mouth at bedtime as needed. pantoprazole DR (PROTONIX) 40 mg tablet Take 40 mg by mouth once daily. metoprolol tartrate, short acting, (LOPRESSOR) 25 mg tablet TAKE 1/2 TABLET BY MOUTH 2 TIMES A DAY VRAYLAR 1.5 mg capsule Take 1 capsule by mouth every afternoon. (Patient not taking: Reported on 08/03/2024) venlafaxine (EFFEXOR) 75 mg tablet TAKE 1 TABLET BY MOUTH 2 TIMES A DAY IN THE MORNING AND EVENING (Patient not taking: Reported on 08/03/2024) furosemide (LASIX) 20 mg tablet Take 20 mg by mouth. (Patient not taking: Reported on 08/03/2024) SPRINTEC 0.25-35 mg-mcg per tablet (Patient not taking: Reported on 08/03/2024) omeprazole (PRILOSEC) 20 mg capsule Take 20 mg by mouth once daily. (Patient not taking: Reported on 08/03/2024) busPIRone (BUSPAR) 10 mg tablet (Patient not taking: Reported on 08/03/2024) citalopram (CELEXA) 40 mg tablet (Patient not taking: Reported on 08/03/2024) oxyCODONE-acetaminophen (PERCOCET) 5-325 mg tablet (Patient not taking: Reported on 05/11/2022) labetalol (TRANDATE) 100 mg tablet (Patient not taking: Reported on 05/11/2022) ibuprofen (MOTRIN) 600 mg tablet (Patient not taking: Reported on 05/11/2022) ferrous sulfate (IRON ORAL) Take by mouth. (Patient not taking: Reported on 08/03/2024) docusate sodium (COLACE ORAL) Take by mouth. (Patient not taking: Reported on 05/11/2022) Pzcwpbqc-Im-Rsf-Fe-FA ( VITAMIN) tab Take 1 tablet by mouth. (Patient not taking: Reported on 05/11/2022) hydrOXYzine Pamoate 100 mg capsule (Patient not taking: Reported on 10/07/2021 ) escitalopram oxalate (LEXAPRO) 20 mg tablet Take 1 tablet by mouth once daily. (Patient not taking: Reported on 10/07/2021 ) FAMILY HISTORY Problem Relation Age of Onset Allergies Mother Anxiety disorder Mother other (brain tumor benign) Father other (Depression, anxiety , panic attacks) Father Hypertension Father No Known Problems Sister No Known Problems Sister No Known Problems Brother No Known Problems Brother No Known Problems Brother Hypertension Maternal Grandmother Lipids Maternal Grandmother other (Depression) Maternal Grandmother Breast Cancer Maternal Grandmother Asthma Maternal Grandfather COPD Maternal Grandfather Heart Paternal Grandmother COPD Paternal Grandfather Liver Disease Paternal Grandfather No Known Problems Daughter Social History Tobacco Use Smoking status: Never Smokeless tobacco: Never Vaping Use Vaping status: Never Used Substance Use Topics Alcohol use: No Drug use: No ASSESSMENT/PLAN: 1. URI, acute - ICD9: 465.9, ICD10: J06.9 (primary diagnosis) - COVID AND INFLUENZA A/B AND RSV PCR, ROUTINE - BUDESONIDE 32 MCG/ACTUATION NASAL SPRAY - BROMPHENIRAMINE-PSEUDOEPHEDRINE -DM 2 MG-30 MG-10 MG (more content not included)... [facility] 08-03-2024 History of Presen t illness Narrative CC: Patient presents with: Cough: Sinus, congestion x 2 days HPI: Cedric Hope is a 29 year old female who presents to the office with complaint of head congestion, cough, nonproductive, and sore throat for a few days. Symptoms are worsening Associated symptoms includes body aches. Denies nausea, vomiting , and diarrhea. Treatments tried include nothing so far. with no relief of symptoms. Sick contacts: unknown. History of asthma, frequent episodes of bronchitis, chronic bronchitis, bronchiectasis or COPD: No Smoker: No Seasonal/environmental allergies: No The ROS is otherwise negative. The patient's pmh, medications, allergies, and past visits are reviewed. PHYSICAL EXAM: BP 132/78 Pulse 91 Temp 36.9 C (98.4 F) Resp 21 Wt 133.9 kg (295 lb 3.1 oz) LMP 07/05/2024 (Within Days) SpO2 100% BMI 52.29 kg/m General appearance: alert, cooperative, pleasant, in no acute distress Head: Normocephalic Eyes: EOM's intact, conjunctiva pink and moist, no icterus, sclera white, non-injected Ears: Right ear: External ear/canal- Normal, TM - erythematous. Left ear: External ear/canal- Normal, TM - clear with good landmarks Oropharynx:moderate erythema, without exudates present, +2 uvula midline Neck: mild cervical adenopathy Heart: Negative. RRR without obvious murmur, gallop, or rubs. No ectopy. Lungs: clear to auscultation, without rales or wheeze, good air exchange PAST MEDICAL HISTORY Diagnosis Date Chlamydia 2013 and 2016 Depression Infertility, female Panic attacks depression PAST SURGICAL HISTORY Procedure Laterality Date DELIVERY ONLY 04/12/2017 PAST SURGICAL HISTORY OF oral (gum) surgery ALLERGIES Patient has no known allergies. MEDICATIONS fluticasone (FLONASE) 50 mcg/actuation nasal spray Use 2 Sprays in each nostril once daily. Rinse mouth after use. venlafaxine ER (EFFEXOR XR) 150 mg 24 hr capsule Take 150 mg by mouth every morning. traZODone (DESYREL) 50 mg tablet Take 50 mg by mouth at bedtime as needed. pantoprazole DR (PROTONIX) 40 mg tablet Take 40 mg by mouth once daily. metoprolol tartrate, short acting, (LOPRESSOR) 25 mg tablet TAKE 1/2 TABLET BY MOUTH 2 TIMES A DAY VRAYLAR 1.5 mg capsule Take 1 capsule by mouth every afternoon. (Patient not taking: Reported on 08/03/2024) venlafaxine (EFFEXOR) 75 mg tablet TAKE 1 TABLET BY MOUTH 2 TIMES A DAY IN THE MORNING AND EVENING (Patient not taking: Reported on 08/03/2024) furosemide (LASIX) 20 mg tablet Take 20 mg by mouth. (Patient not taking: Reported on 08/03/2024) SPRINTEC 0.25-35 mg-mcg per tablet (Patient not taking: Reported on 08/03/2024) omeprazole (PRILOSEC) 20 mg capsule Take 20 mg by mouth once daily. (Patient not taking: Reported on 08/03/2024) busPIRone (BUSPAR) 10 mg tablet (Patient not taking: Reported on 08/03/2024) citalopram (CELEXA) 40 mg tablet (Patient not taking: Reported on 08/03/2024) oxyCODONE-acetaminophen (PERCOCET) 5-325 mg tablet (Patient not taking: Reported on 05/11/2022) labetalol (TRANDATE) 100 mg tablet (Patient not taking: Reported on 05/11/2022) ibuprofen (MOTRIN) 600 mg tablet (Patient not taking: Reported on 05/11/2022) ferrous sulfate (IRON ORAL) Take by mouth. (Patient not taking: Reported on 08/03/2024) docusate sodium (COLACE ORAL) Take by mouth. (Patient not taking: Reported on 05/11/2022) Itllbumj-Ff-Jiv-Fe-FA ( VITAMIN) tab Take 1 tablet by mouth. (Patient not taking: Reported on 05/11/2022) hydrOXYzine Pamoate 100 mg capsule (Patient not taking: Reported on 10/07/2021 ) escitalopram oxalate (LEXAPRO) 20 mg tablet Take 1 tablet by mouth once daily. (Patient not taking: Reported on 10/07/2021 ) FAMILY HISTORY Problem Relation Age of Onset Allergies Mother Anxiety disorder Mother other (brain tumor benign) Father other (Depression, anxiety , panic attacks) Father Hypertension Father No Known Problems Sister No Known Problems Sister No Known Problems Brother No Known Problems Brother No Known Problems Brother Hypertension Maternal Grandmother Lipids Maternal Grandmother other (Depression) Maternal Grandmother Breast Cancer Maternal Grandmother Asthma Maternal Grandfather COPD Maternal Grandfather Heart Paternal Grandmother COPD Paternal Grandfather Liver Disease Paternal Grandfather No Known Problems Daughter Social History Tobacco Use Smoking status: Never Smokeless tobacco: Never Vaping Use Vaping status: Never Used Substance Use Topics Alcohol use: No Drug use: No ASSESSMENT/PLAN: 1. URI, acute - ICD9: 465.9, ICD10: J06.9 (primary diagnosis) - COVID & INFLUENZA A/B & RSV PCR, ROUTINE - BUDESONIDE 32 MCG/ACTUATION NASAL SPRAY - BROMPHENIRAMINE-PSEUDOEPHEDRINE -DM 2 MG-30 MG-10 MG/5 ML ORAL SYRUP 2. Sore throat - ICD9: 462, ICD10: J02.9 - STREP A MOLECULAR (POC) - neg Believed to be viral in nature at this time. Prescription instructions reviewed with patient as applicable. Potential red flag symptoms discussed with the patient. Reviewed appropriate action plan to take if red flag symptoms occur. Patient agreeable to treatment plan. Yury White APRN.ERICA documented in this encounter [facility] 2024 Telephone encounter Note Patient has viewed all results on [email or web address]. Deborah Keys MA [facility] 2024 Miscellaneous Notes Patient has viewed all results on [email or web address]. Deborah Keys MA Please contact patient and let her know urine culture reveals no UTI. Follow-up with PCP for persistent symptoms documented in this encounter [facility] 2024 Telephone encounter Note Please contact patient and let her know urine culture reveals no UTI. Follow-up with PCP for persistent symptoms [facility] Work Phone: 07-19-2024 Note HNO ID: [id number] Author: KISHORE RODRÍGUEZ APRN.[employer] Service: ? Author Type: Nurse Practitioner Type: Progress Notes Filed: 07/19/2024 18:54 Note Text: Subjective HPI A nontoxic appearing female presents to urgent care with chief complaint of possible UTI. Duration of symptoms 3 days. Associated symptoms dysuria, frequency, and urgency. Patient has history of UTIs in past with similar signs and symptoms. Patient denies the use of any gnsi-awj-tlkfijs medications or home remedies for symptom management. Patient states pain is a 3/10. Patient denies any fevers, flank pain, abdominal pain, nausea, vomiting, vaginal discharge chance of , or urological abnormalities. Last menstrual cycle 2 weeks ago. Past medical history prescription medications allergies reviewed. .Patient presents with: UTI: Low back pain, burning with urination PAST MEDICAL HISTORY Diagnosis Date Chlamydia 2013 and 2016 Depression Infertility, female Panic attacks depression PAST SURGICAL HISTORY Procedure Laterality Date DELIVERY ONLY 04/12/2017 PAST SURGICAL HISTORY OF oral (gum) surgery ALLERGIES Patient has no known allergies. MEDICATIONS fluticasone (FLONASE) 50 mcg/actuation nasal spray Use 2 Sprays in each nostril once daily. Rinse mouth after use. VRAYLAR 1.5 mg capsule Take 1 capsule by mouth every afternoon. venlafaxine ER (EFFEXOR XR) 150 mg 24 hr capsule Take 150 mg by mouth every morning. venlafaxine (EFFEXOR) 75 mg tablet TAKE 1 TABLET BY MOUTH 2 TIMES A DAY IN THE MORNING AND EVENING traZODone (DESYREL) 50 mg tablet Take 50 mg by mouth at bedtime as needed. pantoprazole DR (PROTONIX) 40 mg tablet Take 40 mg by mouth once daily. furosemide (LASIX) 20 mg tablet Take 20 mg by mouth. metoprolol tartrate, short acting, (LOPRESSOR) 25 mg tablet TAKE 1/2 TABLET BY MOUTH 2 TIMES A DAY SPRINTEC 0.25-35 mg-mcg per tablet omeprazole (PRILOSEC) 20 mg capsule Take 20 mg by mouth once daily. busPIRone (BUSPAR) 10 mg tablet citalopram (CELEXA) 40 mg tablet oxyCODONE-acetaminophen (PERCOCET) 5-325 mg tablet (Patient not taking: Reported on 05/11/2022) labetalol (TRANDATE) 100 mg tablet (Patient not taking: Reported on 05/11/2022) ibuprofen (MOTRIN) 600 mg tablet (Patient not taking: Reported on 05/11/2022) ferrous sulfate (IRON ORAL) Take by mouth. docusate sodium (COLACE ORAL) Take by mouth. (Patient not taking: Reported on 05/11/2022) Kphvdyze-Yg-Mvw-Fe-FA ( VITAMIN) tab Take 1 tablet by mouth. (Patient not taking: Reported on 05/11/2022) hydrOXYzine Pamoate 100 mg capsule (Patient not taking: Reported on 10/07/2021 ) escitalopram oxalate (LEXAPRO) 20 mg tablet Take 1 tablet by mouth once daily. (Patient not taking: Reported on 10/07/2021 ) FAMILY HISTORY Problem Relation Age of Onset Allergies Mother Anxiety disorder Mother other (brain tumor benign) Father other (Depression, anxiety , panic attacks) Father Hypertension Father No Known Problems Sister No Known Problems Sister No Known Problems Brother No Known Problems Brother No Known Problems Brother Hypertension Maternal Grandmother Lipids Maternal Grandmother other (Depression) Maternal Grandmother Breast Cancer Maternal Grandmother Asthma Maternal Grandfather COPD Maternal Grandfather Heart Paternal Grandmother COPD Paternal Grandfather Liver Disease Paternal Grandfather No Known Problems Daughter Social History Tobacco Use Smoking status: Never Smokeless tobacco: Never Vaping Use Vaping status: Never Used Substance Use Topics Alcohol use: No Drug use: No BP 134/77 Pulse 97 Temp 37.1 ?C (98.7 ?F) Resp 18 LMP 07/05/2024 (Within Days) SpO2 99% No Review of Systems Constitutional: Negative for chills, fever and malaise/fatigue. Cardiovascular: Negative for chest pain. Gastrointestinal: Negative for abdominal pain, constipation, diarrhea, nausea and vomiting. Genitourinary: Positive for dysuria, frequency and urgency. Negative for flank pain and hematuria. Musculoskeletal: Negative for myalgias. Objective Physical Exam Vitals and nursing note reviewed. Constitutional: General: She is not in acute distress. Appearance: She is not diaphoretic. HENT: Head: Jaw: No trismus. Right Ear: Hearing normal. No decreased hearing noted. No drainage, swelling or tenderness. Tympanic membrane is not perforated, erythematous or bulging. Left Ear: Hearing normal. No decreased hearing noted. No drainage, swelling or tenderness. Tympanic membrane is not perforated, erythematous or bulging. Mouth/Throat: Pharynx: Uvula midline. No uvula swelling. Tonsils: No tonsillar abscesses. Cardiovascular: Rate and Rhythm: Normal rate and regular rhythm. Pulses: Normal pulses. Pulmonary: Effort: Pulmonary effort is normal. No respiratory distress. Breath sounds: Normal breath sounds. Chest: Chest (more content not included)... [facility] 07-19-2024 History of Presen t illness Narrative Images from the original note were not included. Subjective HPI A nontoxic appearing female presents to urgent care with chief complaint of possible UTI. Duration of symptoms 3 days. Associated symptoms dysuria, frequency, and urgency. Patient has history of UTIs in past with similar signs and symptoms. Patient denies the use of any zoen-rnj-epmnnqo medications or home remedies for symptom management. Patient states pain is a 3/10. Patient denies any fevers, flank pain, abdominal pain, nausea, vomiting, vaginal discharge chance of , or urological abnormalities. Last menstrual cycle 2 weeks ago. Past medical history prescription medications allergies reviewed. .Patient presents with: UTI: Low back pain, burning with urination PAST MEDICAL HISTORY Diagnosis Date Chlamydia 2013 and 2016 Depression Infertility, female Panic attacks depression PAST SURGICAL HISTORY Procedure Laterality Date DELIVERY ONLY 04/12/2017 PAST SURGICAL HISTORY OF oral (gum) surgery ALLERGIES Patient has no known allergies. MEDICATIONS fluticasone (FLONASE) 50 mcg/actuation nasal spray Use 2 Sprays in each nostril once daily. Rinse mouth after use. VRAYLAR 1.5 mg capsule Take 1 capsule by mouth every afternoon. venlafaxine ER (EFFEXOR XR) 150 mg 24 hr capsule Take 150 mg by mouth every morning. venlafaxine (EFFEXOR) 75 mg tablet TAKE 1 TABLET BY MOUTH 2 TIMES A DAY IN THE MORNING AND EVENING traZODone (DESYREL) 50 mg tablet Take 50 mg by mouth at bedtime as needed. pantoprazole DR (PROTONIX) 40 mg tablet Take 40 mg by mouth once daily. furosemide (LASIX) 20 mg tablet Take 20 mg by mouth. metoprolol tartrate, short acting, (LOPRESSOR) 25 mg tablet TAKE 1/2 TABLET BY MOUTH 2 TIMES A DAY SPRINTEC 0.25-35 mg-mcg per tablet omeprazole (PRILOSEC) 20 mg capsule Take 20 mg by mouth once daily. busPIRone (BUSPAR) 10 mg tablet citalopram (CELEXA) 40 mg tablet oxyCODONE-acetaminophen (PERCOCET) 5-325 mg tablet (Patient not taking: Reported on 05/11/2022) labetalol (TRANDATE) 100 mg tablet (Patient not taking: Reported on 05/11/2022) ibuprofen (MOTRIN) 600 mg tablet (Patient not taking: Reported on 05/11/2022) ferrous sulfate (IRON ORAL) Take by mouth. docusate sodium (COLACE ORAL) Take by mouth. (Patient not taking: Reported on 05/11/2022) Qmxzekrn-Qs-Lxf-Fe-FA ( VITAMIN) tab Take 1 tablet by mouth. (Patient not taking: Reported on 05/11/2022) hydrOXYzine Pamoate 100 mg capsule (Patient not taking: Reported on 10/07/2021 ) escitalopram oxalate (LEXAPRO) 20 mg tablet Take 1 tablet by mouth once daily. (Patient not taking: Reported on 10/07/2021 ) FAMILY HISTORY Problem Relation Age of Onset Allergies Mother Anxiety disorder Mother other (brain tumor benign) Father other (Depression, anxiety , panic attacks) Father Hypertension Father No Known Problems Sister No Known Problems Sister No Known Problems Brother No Known Problems Brother No Known Problems Brother Hypertension Maternal Grandmother Lipids Maternal Grandmother other (Depression) Maternal Grandmother Breast Cancer Maternal Grandmother Asthma Maternal Grandfather COPD Maternal Grandfather Heart Paternal Grandmother COPD Paternal Grandfather Liver Disease Paternal Grandfather No Known Problems Daughter Social History Tobacco Use Smoking status: Never Smokeless tobacco: Never Vaping Use Vaping status: Never Used Substance Use Topics Alcohol use: No Drug use: No BP 134/77 Pulse 97 Temp 37.1 C (98.7 F) Resp 18 LMP 07/05/2024 (Within Days) SpO2 99% No Review of Systems Constitutional: Negative for chills, fever and malaise/fatigue. Cardiovascular: Negative for chest pain. Gastrointestinal: Negative for abdominal pain, constipation, diarrhea, nausea and vomiting. Genitourinary: Positive for dysuria, frequency and urgency. Negative for flank pain and hematuria. Musculoskeletal: Negative for myalgias. Objective Physical Exam Vitals and nursing note reviewed. Constitutional: General: She is not in acute distress. Appearance: She is not diaphoretic. HENT: Head: Jaw: No trismus. Right Ear: Hearing normal. No decreased hearing noted. No drainage, swelling or tenderness. Tympanic membrane is not perforated, erythematous or bulging. Left Ear: Hearing normal. No decreased hearing noted. No drainage, swelling or tenderness. Tympanic membrane is not perforated, erythematous or bulging. Mouth/Throat: Pharynx: Uvula midline. No uvula swelling. Tonsils: No tonsillar abscesses. Cardiovascular: Rate and Rhythm: Normal rate and regular rhythm. Pulses: Normal pulses. Pulmonary: Effort: Pulmonary effort is normal. No respiratory distress. Breath sounds: Normal breath sounds. Chest: Chest wall: No tenderness. Abdominal: General: Bowel sounds are normal. There is no distension. Palpations: Abdomen is soft. Abdomen is not rigid. Tenderness: There is no abdominal tenderness. There is no right CVA tenderness, left CVA tenderness, guarding or rebound. Negative signs include Pierce's sign and McBurney's sign. Musculoskeletal: General: No tenderness. Arms: Comments: Mild tenderness to highlighted area. Lymphadenopathy: Head: Right side of head: No submental, submandibular, tonsillar, preauricular, posterior auricular or occipital adenopathy. Left side of head: No submental, submandibular, tonsillar, preauricular, posterior auricular or occipital adenopathy. Cervical: Right cervical: No superficial or posterior cervical adenopathy. Left cervical: No superficial or posterior cervical adenopathy. Skin: General: Skin is warm and dry. Findings: No rash. Neurological: Mental Status: She is alert and oriented to person, place, and time. ASSESSMENT/PLAN: 1. Burning with urination - ICD9: 788.1, ICD10: R30.0 - UA DIP, URINE (POC) - URINE CULTURE - GONORRHEA/CHLAMYDIA NAAT - CHRISSIE/TRICHOMONAS NAAT - BACTERIAL VAGINOSIS NAAT Vaginal self swabs. Urine dip negative. Treat accordingly to urine culture and vaginal swabs. Patient was educated on supportive therapies. Patient will follow up with primary care provider as needed. Patient was instructed to immediately proceed to emergency room for any new, worsening, or symptoms lasting longer than anticipated. The patient's clinical presentation is otherwise unremarkable at this time. Based on exam and clinical finding, the patient is stable for discharge. Plan of care was discussed with patient. Patient verbalizes understanding and agrees to plan of care. This note was generated using [employer] software. It may contain errors in wording, punctuation, or spelling. Kishore Rodríguez APRN.ERICA documented in this encounter [facility] 07-07-2024 Instructions Nicolasa Dickens APRN.CNP - 07/07/2024 9:56 AM EST Images from the original note were not included. ASSESSMENT/PLAN: 1. Bacterial sinusitis - ICD9: 473.9, 041.9, ICD10: J32.9, B96.89 (primary diagnosis) - Will begin treatment with as per antibiotic as written, see orders - Supportive care with plenty of fluids, rest, and analgesia prn. - AMOXICILLIN 875 MG-POTASSIUM CLAVULANATE 125 MG TABLET - FLUTICASONE PROPIONATE 50 MCG/ACTUATION NASAL SPRAY,SUSPENSION 2. Feared condition not demonstrated - ICD9: V65.5, ICD10: Z71.1 - patient states she gets yeast infection with antibiotic use - FLUCONAZOLE 150 MG TABLET - Follow-up with your PCP in 3-5 days if symptoms have not improved or sooner if symptoms worsen - Discussed red flags and need for immediate medical evaluation if any occur. - Discussed supportive care treatment with fluids, rest and analgesia. - Discussed expected course of illness Nicolasa Dickens APRN.CNP Adult Sinusitis Patient Education What is Sinusitis? Sinusitis [hrab-nqh-ijqa-tis] is inflammation of the sinuses or swelling of the lining of the sinus cavity or nose. During an infection the sinuses become blocked with fluid causing swelling of the lining of the sinuses. Symptoms: (viral and bacterial infections) Stuffy nose Runny nose Postnasal drip Fever Toothache Headache Tiredness Cough Sore throat Face and head pressure and or pain Common causes: 98% of sinus infections are viral caused by viruses. Risk Factors of Sinusitis Include: Allergies, air pollution, indoor humidity and outdoor temperature changes, andstructural changes in the nose may contribute to sinus pain, pressure and congestion. When to get help? Temperature greater than 100.4 F Symptoms lasting more than 10 days or worsening symptoms greater than 7-10 days. If you do not improve or worsen after a course of antibiotics, you should be re-examined. Diagnosis and Treatment: Your healthcare provider will ask a number of questions about your symptoms and how long they have occurred. If symptoms of sinusitis persist greater than 10 days, it is possible you have a bacterial sinus infection and an antibiotic is prescribed. If it is viral, antibiotics will not help. You may be instructed to take [id number] medications for symptoms. including fever reducers acetaminophen or ibuprofen, nasal saline spray, cough and cold preparations and decongestants as prescribed by the physician, nurse practitioner or physician topographical field assistant. Self-Care and Prevention: Rest Fluids for hydration Good hand washing Humidifier Avoid smoking and exposure to second hand smoke Avoid sick contacts documented in this encounter [facility] 07-07-2024 Note HNO ID: [id number] Author: NICOLASA DICKENS APRN.CNP Service: ? Author Type: Nurse Practitioner Type: Progress Notes Filed: 07/07/2024 09:56 Note Text: Subjective Sore Throat Associated symptoms include congestion and headaches. Pertinent negatives include no diarrhea, ear pain or vomiting. Cedric Hope is a 28 year old female who presents with 5 days of sore throat, nasal congestion, throat congestion, and facial pressure. She was seen here 2 days ago with same symptoms. Advised viral illness, strep and COVID/flu/RSV test were negative. She has used tylenol/ibuprofen at home and feels symptoms are worse. Denies fever. Review of Systems Constitutional: Negative for chills, fever and malaise/fatigue. HENT: Positive for congestion, sinus pain and sore throat. Negative for ear pain. Respiratory: Negative. Cardiovascular: Negative. Gastrointestinal: Negative for diarrhea, nausea and vomiting. Musculoskeletal: Negative for myalgias. Neurological: Positive for headaches. BP 122/84 Pulse 91 Temp 37 ?C (98.6 ?F) Resp 18 Wt 132.5 kg (292 lb) LMP 01/02/2021 (Exact Date) SpO2 99% BMI 51.73 kg/m? PAST MEDICAL HISTORY Diagnosis Date Chlamydia 2013 and 2016 Depression Infertility, female Panic attacks depression PAST SURGICAL HISTORY Procedure Laterality Date DELIVERY ONLY 04/12/2017 PAST SURGICAL HISTORY OF oral (gum) surgery ALLERGIES Patient has no known allergies. MEDICATIONS amoxicillin-clavulanate potassium (AUGMENTIN) 875-125 mg per tablet Take 1 tablet by mouth two times a day for 7 days. fluticasone (FLONASE) 50 mcg/actuation nasal spray Use 2 Sprays in each nostril once daily. Rinse mouth after use. fluconazole (DIFLUCAN) 150 mg tablet Take 1 tablet by mouth one time only for 1 dose. VRAYLAR 1.5 mg capsule Take 1 capsule by mouth every afternoon. venlafaxine ER (EFFEXOR XR) 150 mg 24 hr capsule Take 150 mg by mouth every morning. venlafaxine (EFFEXOR) 75 mg tablet TAKE 1 TABLET BY MOUTH 2 TIMES A DAY IN THE MORNING AND EVENING traZODone (DESYREL) 50 mg tablet Take 50 mg by mouth at bedtime as needed. pantoprazole DR (PROTONIX) 40 mg tablet Take 40 mg by mouth once daily. furosemide (LASIX) 20 mg tablet Take 20 mg by mouth. metoprolol tartrate, short acting, (LOPRESSOR) 25 mg tablet TAKE 1/2 TABLET BY MOUTH 2 TIMES A DAY SPRINTEC 0.25-35 mg-mcg per tablet omeprazole (PRILOSEC) 20 mg capsule Take 20 mg by mouth once daily. busPIRone (BUSPAR) 10 mg tablet citalopram (CELEXA) 40 mg tablet oxyCODONE-acetaminophen (PERCOCET) 5-325 mg tablet (Patient not taking: Reported on 05/11/2022) labetalol (TRANDATE) 100 mg tablet (Patient not taking: Reported on 05/11/2022) ibuprofen (MOTRIN) 600 mg tablet (Patient not taking: Reported on 05/11/2022) ferrous sulfate (IRON ORAL) Take by mouth. docusate sodium (COLACE ORAL) Take by mouth. (Patient not taking: Reported on 05/11/2022) Ioajgfxk-Ll-Elm-Fe-FA ( VITAMIN) tab Take 1 tablet by mouth. (Patient not taking: Reported on 05/11/2022) hydrOXYzine Pamoate 100 mg capsule (Patient not taking: Reported on 10/07/2021 ) escitalopram oxalate (LEXAPRO) 20 mg tablet Take 1 tablet by mouth once daily. (Patient not taking: Reported on 10/07/2021 ) FAMILY HISTORY Problem Relation Age of Onset Allergies Mother Anxiety disorder Mother other (brain tumor benign) Father other (Depression, anxiety , panic attacks) Father Hypertension Father No Known Problems Sister No Known Problems Sister No Known Problems Brother No Known Problems Brother No Known Problems Brother Hypertension Maternal Grandmother Lipids Maternal Grandmother other (Depression) Maternal Grandmother Breast Cancer Maternal Grandmother Asthma Maternal Grandfather COPD Maternal Grandfather Heart Paternal Grandmother COPD Paternal Grandfather Liver Disease Paternal Grandfather No Known Problems Daughter Social History Tobacco Use Smoking status: Never Smokeless tobacco: Never Vaping Use Vaping status: Never Used Substance Use Topics Alcohol use: No Drug use: No Objective Physical Exam Vitals and nursing note reviewed. Constitutional: Appearance: Normal appearance. HENT: Right Ear: Tympanic membrane, ear canal and external ear normal. Left Ear: Tympanic membrane, ear canal and external ear normal. Nose: Nasal tenderness, mucosal edema, congestion and rhinorrhea present. Mouth/Throat: Pharynx: Uvula midline. Postnasal drip present. No oropharyngeal exudate or posterior oropharyngeal erythema. Tonsils: No tonsillar exudate. 2+ on the right. 2+ on the left. Cardiovascular: Rate and Rhythm: Normal rate and regular rhythm. Heart sounds: Normal heart sounds. Pulmonary: Effort: Pulmonary effort is normal. No respiratory distress. Breath sounds: Normal breath sounds. No wheezing or rales. Musculoskeletal: Cervical back: Neck supple (more content not included)... [facility] 07-07-2024 History of Presen t illness Narrative Subjective Sore Throat Associated symptoms include congestion and headaches. Pertinent negatives include no diarrhea, ear pain or vomiting. Cedric Hope is a 28 year old female who presents with 5 days of sore throat, nasal congestion, throat congestion, and facial pressure. She was seen here 2 days ago with same symptoms. Advised viral illness, strep and COVID/flu/RSV test were negative. She has used tylenol/ibuprofen at home and feels symptoms are worse. Denies fever. Review of Systems Constitutional: Negative for chills, fever and malaise/fatigue. HENT: Positive for congestion, sinus pain and sore throat. Negative for ear pain. Respiratory: Negative. Cardiovascular: Negative. Gastrointestinal: Negative for diarrhea, nausea and vomiting. Musculoskeletal: Negative for myalgias. Neurological: Positive for headaches. BP 122/84 Pulse 91 Temp 37 C (98.6 F) Resp 18 Wt 132.5 kg (292 lb) LMP 01/02/2021 (Exact Date) SpO2 99% BMI 51.73 kg/m PAST MEDICAL HISTORY Diagnosis Date Chlamydia 2013 and 2016 Depression Infertility, female Panic attacks depression PAST SURGICAL HISTORY Procedure Laterality Date DELIVERY ONLY 04/12/2017 PAST SURGICAL HISTORY OF oral (gum) surgery ALLERGIES Patient has no known allergies. MEDICATIONS amoxicillin-clavulanate potassium (AUGMENTIN) 875-125 mg per tablet Take 1 tablet by mouth two times a day for 7 days. fluticasone (FLONASE) 50 mcg/actuation nasal spray Use 2 Sprays in each nostril once daily. Rinse mouth after use. fluconazole (DIFLUCAN) 150 mg tablet Take 1 tablet by mouth one time only for 1 dose. VRAYLAR 1.5 mg capsule Take 1 capsule by mouth every afternoon. venlafaxine ER (EFFEXOR XR) 150 mg 24 hr capsule Take 150 mg by mouth every morning. venlafaxine (EFFEXOR) 75 mg tablet TAKE 1 TABLET BY MOUTH 2 TIMES A DAY IN THE MORNING AND EVENING traZODone (DESYREL) 50 mg tablet Take 50 mg by mouth at bedtime as needed. pantoprazole DR (PROTONIX) 40 mg tablet Take 40 mg by mouth once daily. furosemide (LASIX) 20 mg tablet Take 20 mg by mouth. metoprolol tartrate, short acting, (LOPRESSOR) 25 mg tablet TAKE 1/2 TABLET BY MOUTH 2 TIMES A DAY SPRINTEC 0.25-35 mg-mcg per tablet omeprazole (PRILOSEC) 20 mg capsule Take 20 mg by mouth once daily. busPIRone (BUSPAR) 10 mg tablet citalopram (CELEXA) 40 mg tablet oxyCODONE-acetaminophen (PERCOCET) 5-325 mg tablet (Patient not taking: Reported on 05/11/2022) labetalol (TRANDATE) 100 mg tablet (Patient not taking: Reported on 05/11/2022) ibuprofen (MOTRIN) 600 mg tablet (Patient not taking: Reported on 05/11/2022) ferrous sulfate (IRON ORAL) Take by mouth. docusate sodium (COLACE ORAL) Take by mouth. (Patient not taking: Reported on 05/11/2022) [place]-Am-Yle-Fe-FA ( VITAMIN) tab Take 1 tablet by mouth. (Patient not taking: Reported on 05/11/2022) hydrOXYzine Pamoate 100 mg capsule (Patient not taking: Reported on 10/07/2021 ) escitalopram oxalate (LEXAPRO) 20 mg tablet Take 1 tablet by mouth once daily. (Patient not taking: Reported on 10/07/2021 ) FAMILY HISTORY Problem Relation Age of Onset Allergies Mother Anxiety disorder Mother other (brain tumor benign) Father other (Depression, anxiety , panic attacks) Father Hypertension Father No Known Problems Sister No Known Problems Sister No Known Problems Brother No Known Problems Brother No Known Problems Brother Hypertension Maternal Grandmother Lipids Maternal Grandmother other (Depression) Maternal Grandmother Breast Cancer Maternal Grandmother Asthma Maternal Grandfather COPD Maternal Grandfather Heart Paternal Grandmother COPD Paternal Grandfather Liver Disease Paternal Grandfather No Known Problems Daughter Social History Tobacco Use Smoking status: Never Smokeless tobacco: Never Vaping Use Vaping status: Never Used Substance Use Topics Alcohol use: No Drug use: No Objective Physical Exam Vitals and nursing note reviewed. Constitutional: Appearance: Normal appearance. HENT: Right Ear: Tympanic membrane, ear canal and external ear normal. Left Ear: Tympanic membrane, ear canal and external ear normal. Nose: Nasal tenderness, mucosal edema, congestion and rhinorrhea present. Mouth/Throat: Pharynx: Uvula midline. Postnasal drip present. No oropharyngeal exudate or posterior oropharyngeal erythema. Tonsils: No tonsillar exudate. 2+ on the right. 2+ on the left. Cardiovascular: Rate and Rhythm: Normal rate and regular rhythm. Heart sounds: Normal heart sounds. Pulmonary: Effort: Pulmonary effort is normal. No respiratory distress. Breath sounds: Normal breath sounds. No wheezing or rales. Musculoskeletal: Cervical back: Neck supple. Lymphadenopathy: Cervical: No cervical adenopathy. Skin: General: Skin is warm and dry. Findings: No erythema or rash. Neurological: Mental Status: She is alert. ASSESSMENT/PLAN: 1. Bacterial sinusitis - ICD9: 473.9, 041.9, ICD10: J32.9, B96.89 (primary diagnosis) - Will begin treatment with as per antibiotic as written, see orders - Supportive care with plenty of fluids, rest, and analgesia prn. - AMOXICILLIN 875 MG-POTASSIUM CLAVULANATE 125 MG TABLET - FLUTICASONE PROPIONATE 50 MCG/ACTUATION NASAL SPRAY,SUSPENSION 2. Feared condition not demonstrated - ICD9: V65.5, ICD10: Z71.1 - patient states she gets yeast infection with antibiotic use - FLUCONAZOLE 150 MG TABLET - Follow-up with your PCP in 3-5 days if symptoms have not improved or sooner if symptoms worsen - Discussed red flags and need for immediate medical evaluation if any occur. - Discussed supportive care treatment with fluids, rest and analgesia. - Discussed expected course of illness Nicolasa Dickens APRN.[employer] documented in this encounter [facility] 07-06-2024 Telephone encounter Note Patient notified. Deborah Keys MA [facility] 07-06-2024 Miscellaneous Notes Patient notified. Deborah Keys MA Please notify that covid/flu/rsv testing negative. Continue with plan of care as discussed during visit. documented in this encounter [facility] 07-06-2024 Telephone encounter Note Please notify that covid/flu/rsv testing negative. Continue with plan of care as discussed during visit. [facility] Work Phone: 07-05-2024 Note HNO ID: [id number] Author: YURY WHITE APRN.ERICA Service: ? Author Type: Nurse Practitioner Type: Progress Notes Filed: 07/05/2024 17:56 Note Text: CC: Patient presents with: Cough: Sinus pressure, congestion x2 days HPI: Cedric Hope is a 28 year old female who presents to the office with complaint of head congestion, cough, nonproductive, and sinus symptoms for a few days. Symptoms are worsening Associated symptoms includes nasal congestion and cough. Denies wheezing, dyspnea, nausea, vomiting , and diarrhea. Treatments tried include nothing so far. with no relief of symptoms. Sick contacts: unknown. History of asthma, frequent episodes of bronchitis, chronic bronchitis, bronchiectasis or COPD: No Smoker: No Seasonal/environmental allergies: No The ROS is otherwise negative. The patient's pmh, medications, allergies, and past visits are reviewed. PHYSICAL EXAM: BP 131/84 Pulse 92 Temp 37.4 ?C (99.3 ?F) Resp 18 Wt 132.8 kg (292 lb 12.3 oz) LMP 01/02/2021 (Exact Date) SpO2 98% BMI 51.86 kg/m? General appearance: alert, cooperative, pleasant, in no acute distress Head: Normocephalic Eyes: EOM's intact, conjunctiva pink and moist, no icterus, sclera white, non-injected Ears: Right ear: External ear/canal- Normal, TM - clear with good landmarks. Left ear: External ear/canal- Normal, TM - clear with good landmarks Oropharynx:moist without lesions, No erythema, exudates or tonsillar hypertrophy. Heart: Negative. RRR without obvious murmur, gallop, or rubs. No ectopy. Lungs: clear to auscultation, without rales or wheeze, good air exchange PAST MEDICAL HISTORY Diagnosis Date Chlamydia 2013 and 2016 Depression Infertility, female Panic attacks depression PAST SURGICAL HISTORY Procedure Laterality Date DELIVERY ONLY 04/12/2017 PAST SURGICAL HISTORY OF oral (gum) surgery ALLERGIES Patient has no known allergies. MEDICATIONS VRAYLAR 1.5 mg capsule Take 1 capsule by mouth every afternoon. venlafaxine ER (EFFEXOR XR) 150 mg 24 hr capsule Take 150 mg by mouth every morning. venlafaxine (EFFEXOR) 75 mg tablet TAKE 1 TABLET BY MOUTH 2 TIMES A DAY IN THE MORNING AND EVENING traZODone (DESYREL) 50 mg tablet Take 50 mg by mouth at bedtime as needed. pantoprazole DR (PROTONIX) 40 mg tablet Take 40 mg by mouth once daily. furosemide (LASIX) 20 mg tablet Take 20 mg by mouth. metoprolol tartrate, short acting, (LOPRESSOR) 25 mg tablet TAKE 1/2 TABLET BY MOUTH 2 TIMES A DAY SPRINTEC 0.25-35 mg-mcg per tablet omeprazole (PRILOSEC) 20 mg capsule Take 20 mg by mouth once daily. busPIRone (BUSPAR) 10 mg tablet citalopram (CELEXA) 40 mg tablet ferrous sulfate (IRON ORAL) Take by mouth. oxyCODONE-acetaminophen (PERCOCET) 5-325 mg tablet (Patient not taking: Reported on 05/11/2022) labetalol (TRANDATE) 100 mg tablet (Patient not taking: Reported on 05/11/2022) ibuprofen (MOTRIN) 600 mg tablet (Patient not taking: Reported on 05/11/2022) docusate sodium (COLACE ORAL) Take by mouth. (Patient not taking: Reported on 05/11/2022) Hkqgkmqw-Ze-Tpp-Fe-FA ( VITAMIN) tab Take 1 tablet by mouth. (Patient not taking: Reported on 05/11/2022) hydrOXYzine Pamoate 100 mg capsule (Patient not taking: Reported on 10/07/2021 ) escitalopram oxalate (LEXAPRO) 20 mg tablet Take 1 tablet by mouth once daily. (Patient not taking: Reported on 10/07/2021 ) FAMILY HISTORY Problem Relation Age of Onset Allergies Mother Anxiety disorder Mother other (brain tumor benign) Father other (Depression, anxiety , panic attacks) Father Hypertension Father No Known Problems Sister No Known Problems Sister No Known Problems Brother No Known Problems Brother No Known Problems Brother Hypertension Maternal Grandmother Lipids Maternal Grandmother other (Depression) Maternal Grandmother Breast Cancer Maternal Grandmother Asthma Maternal Grandfather COPD Maternal Grandfather Heart Paternal Grandmother COPD Paternal Grandfather Liver Disease Paternal Grandfather No Known Problems Daughter Social History Tobacco Use Smoking status: Never Smokeless tobacco: Never Vaping Use Vaping status: Never Used Substance Use Topics Alcohol use: No Drug use: No ASSESSMENT/PLAN: 1. Sore throat - ICD9: 462, ICD10: J02.9 (primary diagnosis) - STREP A MOLECULAR (POC) - neg 2. URI, acute - ICD9: 465.9, ICD10: J06.9 - COVID AND INFLUENZA A/B AND RSV PCR, ROUTINE Otc meds for symptoms. Potential red flag symptoms discussed with the patient. Reviewed appropriate action plan to take if red flag symptoms occur. Patient agreeable to treatment plan. Yury White APRN.[facility] 07-05-2024 History of Presen t illness Narrative CC: Patient presents with: Cough: Sinus pressure, congestion x2 days HPI: Cedric Hope is a 28 year old female who presents to the office with complaint of head congestion, cough, nonproductive, and sinus symptoms for a few days. Symptoms are worsening Associated symptoms includes nasal congestion and cough. Denies wheezing, dyspnea, nausea, vomiting , and diarrhea. Treatments tried include nothing so far. with no relief of symptoms. Sick contacts: unknown. History of asthma, frequent episodes of bronchitis, chronic bronchitis, bronchiectasis or COPD: No Smoker: No Seasonal/environmental allergies: No The ROS is otherwise negative. The patient's pmh, medications, allergies, and past visits are reviewed. PHYSICAL EXAM: BP 131/84 Pulse 92 Temp 37.4 C (99.3 F) Resp 18 Wt 132.8 kg (292 lb 12.3 oz) LMP 01/02/2021 (Exact Date) SpO2 98% BMI 51.86 kg/m General appearance: alert, cooperative, pleasant, in no acute distress Head: Normocephalic Eyes: EOM's intact, conjunctiva pink and moist, no icterus, sclera white, non-injected Ears: Right ear: External ear/canal- Normal, TM - clear with good landmarks. Left ear: External ear/canal- Normal, TM - clear with good landmarks Oropharynx:moist without lesions, No erythema, exudates or tonsillar hypertrophy. Heart: Negative. RRR without obvious murmur, gallop, or rubs. No ectopy. Lungs: clear to auscultation, without rales or wheeze, good air exchange PAST MEDICAL HISTORY Diagnosis Date Chlamydia 2013 and 2016 Depression Infertility, female Panic attacks depression PAST SURGICAL HISTORY Procedure Laterality Date DELIVERY ONLY 04/12/2017 PAST SURGICAL HISTORY OF oral (gum) surgery ALLERGIES Patient has no known allergies. MEDICATIONS VRAYLAR 1.5 mg capsule Take 1 capsule by mouth every afternoon. venlafaxine ER (EFFEXOR XR) 150 mg 24 hr capsule Take 150 mg by mouth every morning. venlafaxine (EFFEXOR) 75 mg tablet TAKE 1 TABLET BY MOUTH 2 TIMES A DAY IN THE MORNING AND EVENING traZODone (DESYREL) 50 mg tablet Take 50 mg by mouth at bedtime as needed. pantoprazole DR (PROTONIX) 40 mg tablet Take 40 mg by mouth once daily. furosemide (LASIX) 20 mg tablet Take 20 mg by mouth. metoprolol tartrate, short acting, (LOPRESSOR) 25 mg tablet TAKE 1/2 TABLET BY MOUTH 2 TIMES A DAY SPRINTEC 0.25-35 mg-mcg per tablet omeprazole (PRILOSEC) 20 mg capsule Take 20 mg by mouth once daily. busPIRone (BUSPAR) 10 mg tablet citalopram (CELEXA) 40 mg tablet ferrous sulfate (IRON ORAL) Take by mouth. oxyCODONE-acetaminophen (PERCOCET) 5-325 mg tablet (Patient not taking: Reported on 05/11/2022) labetalol (TRANDATE) 100 mg tablet (Patient not taking: Reported on 05/11/2022) ibuprofen (MOTRIN) 600 mg tablet (Patient not taking: Reported on 05/11/2022) docusate sodium (COLACE ORAL) Take by mouth. (Patient not taking: Reported on 05/11/2022) Wldoglfu-Bs-Mod-Fe-FA ( VITAMIN) tab Take 1 tablet by mouth. (Patient not taking: Reported on 05/11/2022) hydrOXYzine Pamoate 100 mg capsule (Patient not taking: Reported on 10/07/2021 ) escitalopram oxalate (LEXAPRO) 20 mg tablet Take 1 tablet by mouth once daily. (Patient not taking: Reported on 10/07/2021 ) FAMILY HISTORY Problem Relation Age of Onset Allergies Mother Anxiety disorder Mother other (brain tumor benign) Father other (Depression, anxiety , panic attacks) Father Hypertension Father No Known Problems Sister No Known Problems Sister No Known Problems Brother No Known Problems Brother No Known Problems Brother Hypertension Maternal Grandmother Lipids Maternal Grandmother other (Depression) Maternal Grandmother Breast Cancer Maternal Grandmother Asthma Maternal Grandfather COPD Maternal Grandfather Heart Paternal Grandmother COPD Paternal Grandfather Liver Disease Paternal Grandfather No Known Problems Daughter Social History Tobacco Use Smoking status: Never Smokeless tobacco: Never Vaping Use Vaping status: Never Used Substance Use Topics Alcohol use: No Drug use: No ASSESSMENT/PLAN: 1. Sore throat - ICD9: 462, ICD10: J02.9 (primary diagnosis) - STREP A MOLECULAR (POC) - neg 2. URI, acute - ICD9: 465.9, ICD10: J06.9 - COVID & INFLUENZA A/B & RSV PCR, ROUTINE Otc meds for symptoms. Potential red flag symptoms discussed with the patient. Reviewed appropriate action plan to take if red flag symptoms occur. Patient agreeable to treatment plan. Yury White APRN.[employer] documented in this encounter [facility] 06-06-2024 History of Presen t illness Narrative Radiology Service Progress Note PATIENT NAME: Cedric Hope DATE OF SERVICE: June 06, 2024 TIME: 1:20 PM PATIENT IDENTITY VERIFICATION COMPLETED USING TWO (2) IDENTIFIERS: Name and Date of confirmed by patient verbally. FALL SCREENING: Has the patient had 2 falls in the last year or 1 fall with injury or currently using an Ambulatory Assistive Device (Walker, Cane, Wheelchair, Crutches, etc.)? No PATIENT GENDER DATA: Female. status: : No status: NO. PATIENT RELEVANT IMPLANT DATA REVIEWED: Yes PATIENT PRESENTS WITH AN IMPLANTABLE OR ATTACHED HEALTH TYPE TECHNICIAN: No RADIOLOGY DEPARTMENT: General X-ray: Exam(s) Completed: Chest X-Ray PERIPHERAL IV DATA: Not applicable SIGNED BY: RT Miriam(Roberto) June 06, 2024 1:20 PM documented in this encounter [facility] 06-06-2024 Note HNO ID: [id number] Author: DILCIA LORD RT (R) Service: ? Author Type: Car Manager Type: Progress Notes Filed: 06/06/2024 13:20 Note Text: Radiology Service Progress Note PATIENT NAME: Cedric Hope DATE OF SERVICE: June 06, 2024 TIME: 1:20 PM PATIENT IDENTITY VERIFICATION COMPLETED USING TWO (2) IDENTIFIERS: Name and Date of confirmed by patient verbally. FALL SCREENING: Has the patient had 2 falls in the last year or 1 fall with injury or currently using an Ambulatory Assistive Device (Walker, Cane, Wheelchair, Crutches, etc.)? No PATIENT GENDER DATA: Female. status: : No status: NO. PATIENT RELEVANT IMPLANT DATA REVIEWED: Yes PATIENT PRESENTS WITH AN IMPLANTABLE OR ATTACHED HEALTH TYPE TECHNICIAN: No RADIOLOGY DEPARTMENT: General X-ray: Exam(s) Completed: Chest X-Ray PERIPHERAL IV DATA: Not applicable SIGNED BY: RT Miriam(Roberto) June 06, 2024 1:20 PM [facility] 06-06-2024 Note HNO ID: [id number] Author: VAISHALI JUDGE APRN.[employer] Service: ? Author Type: Nurse Practitioner Type: Progress Notes Filed: 06/06/2024 13:40 Note Text: This note was created using [email or web address]. Subjective Cedric Hope is a 28 year old female. 28 year old female with no PMH presents for multiple complaints URI Acute onset 2 days ago +cough +sinus pressure +sinus pain +productive Denies N/V/D Denies fever Denies CP. Denies dyspnea Son has been treated for both pneumonia and ear infection STD testing Urinary frequency, otherwise Denies symptoms. States she believes her has been unfaithful And I just want to check Denies abdominal pain Denies vaginal discharge Denies vaginal bleeding The history is provided by the patient. No outside machinist apprentice was used. URI She complains of cough, sputum production and wheezing. There is no chest tightness, difficulty breathing, frequent throat clearing, hemoptysis, hoarse voice or shortness of breath. This is a new problem. The current episode started yesterday. The problem occurs constantly. The problem has been unchanged. The cough is productive of sputum. Associated symptoms include nasal congestion, postnasal drip and sneezing. Pertinent negatives include no appetite change, chest pain, dyspnea on exertion, ear congestion, ear pain, fever, headaches, heartburn, malaise/fatigue, myalgias, orthopnea, PND, rhinorrhea, sore throat, sweats, trouble swallowing or weight loss. Her symptoms are aggravated by nothing. Her symptoms are alleviated by nothing. She reports no improvement on treatment. There are no known risk factors for lung disease. There is no history of asthma, bronchiectasis, bronchitis, COPD, emphysema or pneumonia. Female Gu Problem This is a new problem. The onset is undetermined. The problem occurs continuously. The problem has been unchanged. The patient is experiencing no pain. Nothing relieves the symptoms. Nothing aggravates the symptoms. Associated symptoms include cough. Pertinent negatives include no chest pain, no fever, no abdominal pain, no constipation, no diarrhea, no nausea, no vomiting, no dysuria, no frequency, no hematuria, no pelvic pain, no urgency, no vaginal bleeding, no vaginal discharge, no vaginal pain, no headaches, no sore throat, no shortness of breath, no rash and no dyspareunia. There has been no history of trauma. Urine output has been normal. The last void occurred Less than 6 hours ago. She is currently Sexually active. She has 1 sexual partner. She is not . She has not missed her period. She has had no prior pregancies. Her past medical history does not include STD, PID or UTI. There were no sick contacts. She has received no recent medical care. PAST MEDICAL HISTORY Diagnosis Date Chlamydia 2013 and 2016 Depression Infertility, female Panic attacks depression PAST SURGICAL HISTORY Procedure Laterality Date DELIVERY ONLY 04/12/2017 PAST SURGICAL HISTORY OF oral (gum) surgery ALLERGIES Patient has no known allergies. MEDICATIONS venlafaxine ER (EFFEXOR XR) 150 mg 24 hr capsule Take 150 mg by mouth every morning. venlafaxine (EFFEXOR) 75 mg tablet TAKE 1 TABLET BY MOUTH 2 TIMES A DAY IN THE MORNING AND EVENING traZODone (DESYREL) 50 mg tablet Take 50 mg by mouth at bedtime as needed. pantoprazole DR (PROTONIX) 40 mg tablet Take 40 mg by mouth once daily. furosemide (LASIX) 20 mg tablet Take 20 mg by mouth. metoprolol tartrate, short acting, (LOPRESSOR) 25 mg tablet TAKE 1/2 TABLET BY MOUTH 2 TIMES A DAY SPRINTEC 0.25-35 mg-mcg per tablet omeprazole (PRILOSEC) 20 mg capsule Take 20 mg by mouth once daily. busPIRone (BUSPAR) 10 mg tablet citalopram (CELEXA) 40 mg tablet ferrous sulfate (IRON ORAL) Take by mouth. oxyCODONE-acetaminophen (PERCOCET) 5-325 mg tablet (Patient not taking: Reported on 05/11/2022) labetalol (TRANDATE) 100 mg tablet (Patient not taking: Reported on 05/11/2022) ibuprofen (MOTRIN) 600 mg tablet (Patient not taking: Reported on 05/11/2022) docusate sodium (COLACE ORAL) Take by mouth. (Patient not taking: Reported on 05/11/2022) Smyfrigs-Vz-Jct-Fe-FA ( VITAMIN) tab Take 1 tablet by mouth. (Patient not taking: Reported on 05/11/2022) hydrOXYzine Pamoate 100 mg capsule (Patient not taking: Reported on 10/07/2021 ) escitalopram oxalate (LEXAPRO) 20 mg tablet Take 1 tablet by mouth once daily. (Patient not taking: Reported on 10/07/2021 ) FAMILY HISTORY Problem Relation Age of Onset Allergies Mother Anxiety disorder Mother other (brain tumor benign) Father other (Depression, anxiety , panic attacks) Father Hypertension Father No Known Problems Sister No Known Problems Sister No Known Problems Brother No Known Problems Brother No Known Problems Brother Hypertension Maternal Grandmother Lipids Maternal Grandmother other (Depression) Matern (more content not included)... [facility] 06-06-2024 History of Presen t illness Narrative This note was created using [employer]. Subjective Cedric Hope is a 28 year old female. 28 year old female with no PMH presents for multiple complaints URI Acute onset 2 days ago +cough +sinus pressure +sinus pain +productive Denies N/V/D Denies fever Denies CP. Denies dyspnea Son has been treated for both pneumonia and ear infection STD testing Urinary frequency, otherwise Denies symptoms. States she believes her has been unfaithful And I just want to check Denies abdominal pain Denies vaginal discharge Denies vaginal bleeding The history is provided by the patient. No outside machinist apprentice was used. URI She complains of cough, sputum production and wheezing. There is no chest tightness, difficulty breathing, frequent throat clearing, hemoptysis, hoarse voice or shortness of breath. This is a new problem. The current episode started yesterday. The problem occurs constantly. The problem has been unchanged. The cough is productive of sputum. Associated symptoms include nasal congestion, postnasal drip and sneezing. Pertinent negatives include no appetite change, chest pain, dyspnea on exertion, ear congestion, ear pain, fever, headaches, heartburn, malaise/fatigue, myalgias, orthopnea, PND, rhinorrhea, sore throat, sweats, trouble swallowing or weight loss. Her symptoms are aggravated by nothing. Her symptoms are alleviated by nothing. She reports no improvement on treatment. There are no known risk factors for lung disease. There is no history of asthma, bronchiectasis, bronchitis, COPD, emphysema or pneumonia. Female Gu Problem This is a new problem. The onset is undetermined. The problem occurs continuously. The problem has been unchanged. The patient is experiencing no pain. Nothing relieves the symptoms. Nothing aggravates the symptoms. Associated symptoms include cough. Pertinent negatives include no chest pain, no fever, no abdominal pain, no constipation, no diarrhea, no nausea, no vomiting, no dysuria, no frequency, no hematuria, no pelvic pain, no urgency, no vaginal bleeding, no vaginal discharge, no vaginal pain, no headaches, no sore throat, no shortness of breath, no rash and no dyspareunia. There has been no history of trauma. Urine output has been normal. The last void occurred Less than 6 hours ago. She is currently Sexually active. She has 1 sexual partner. She is not . She has not missed her period. She has had no prior pregancies. Her past medical history does not include STD, PID or UTI. There were no sick contacts. She has received no recent medical care. PAST MEDICAL HISTORY Diagnosis Date Chlamydia 2013 and 2016 Depression Infertility, female Panic attacks depression PAST SURGICAL HISTORY Procedure Laterality Date DELIVERY ONLY 04/12/2017 PAST SURGICAL HISTORY OF oral (gum) surgery ALLERGIES Patient has no known allergies. MEDICATIONS venlafaxine ER (EFFEXOR XR) 150 mg 24 hr capsule Take 150 mg by mouth every morning. venlafaxine (EFFEXOR) 75 mg tablet TAKE 1 TABLET BY MOUTH 2 TIMES A DAY IN THE MORNING AND EVENING traZODone (DESYREL) 50 mg tablet Take 50 mg by mouth at bedtime as needed. pantoprazole DR (PROTONIX) 40 mg tablet Take 40 mg by mouth once daily. furosemide (LASIX) 20 mg tablet Take 20 mg by mouth. metoprolol tartrate, short acting, (LOPRESSOR) 25 mg tablet TAKE 1/2 TABLET BY MOUTH 2 TIMES A DAY SPRINTEC 0.25-35 mg-mcg per tablet omeprazole (PRILOSEC) 20 mg capsule Take 20 mg by mouth once daily. busPIRone (BUSPAR) 10 mg tablet citalopram (CELEXA) 40 mg tablet ferrous sulfate (IRON ORAL) Take by mouth. oxyCODONE-acetaminophen (PERCOCET) 5-325 mg tablet (Patient not taking: Reported on 05/11/2022) labetalol (TRANDATE) 100 mg tablet (Patient not taking: Reported on 05/11/2022) ibuprofen (MOTRIN) 600 mg tablet (Patient not taking: Reported on 05/11/2022) docusate sodium (COLACE ORAL) Take by mouth. (Patient not taking: Reported on 05/11/2022) Mugxuoou-Fm-Bke-Fe-FA ( VITAMIN) tab Take 1 tablet by mouth. (Patient not taking: Reported on 05/11/2022) hydrOXYzine Pamoate 100 mg capsule (Patient not taking: Reported on 10/07/2021 ) escitalopram oxalate (LEXAPRO) 20 mg tablet Take 1 tablet by mouth once daily. (Patient not taking: Reported on 10/07/2021 ) FAMILY HISTORY Problem Relation Age of Onset Allergies Mother Anxiety disorder Mother other (brain tumor benign) Father other (Depression, anxiety , panic attacks) Father Hypertension Father No Known Problems Sister No Known Problems Sister No Known Problems Brother No Known Problems Brother No Known Problems Brother Hypertension Maternal Grandmother Lipids Maternal Grandmother other (Depression) Maternal Grandmother Breast Cancer Maternal Grandmother Asthma Maternal Grandfather COPD Maternal Grandfather Heart Paternal Grandmother COPD Paternal Grandfather Liver Disease Paternal Grandfather No Known Problems Daughter Social History Tobacco Use Smoking status: Never Smokeless tobacco: Never Vaping Use Vaping status: Never Used Substance Use Topics Alcohol use: No Drug use: No Review of Systems Constitutional: Negative for appetite change, fever, malaise/fatigue and weight loss. HENT: Positive for postnasal drip and sneezing. Negative for ear pain, hoarse voice, rhinorrhea, sore throat and trouble swallowing. Respiratory: Positive for cough, sputum production and wheezing. Negative for hemoptysis and shortness of breath. Cardiovascular: Negative for chest pain, dyspnea on exertion and PND. Gastrointestinal: Negative for abdominal pain, constipation, diarrhea, heartburn, nausea and vomiting. Genitourinary: Negative for dyspareunia, dysuria, frequency, hematuria, pelvic pain, urgency, vaginal bleeding, vaginal discharge and vaginal pain. Musculoskeletal: Negative for myalgias. Skin: Negative for rash. Neurological: Negative for headaches. Objective BP 136/70 Pulse 97 Temp 36.9 C (98.5 F) (Tympanic) Resp 18 Wt 134.5 kg (296 lb 8.3 oz) LMP 01/02/2021 (Exact Date) SpO2 99% BMI 52.53 kg/m Physical Exam Vitals and nursing note reviewed. Constitutional: General: She is not in acute distress. Appearance: Normal appearance. She is normal weight. She is not ill-appearing, toxic-appearing or diaphoretic. HENT: Head: Normocephalic and atraumatic. Right Ear: Ear canal and external ear normal. Left Ear: Ear canal and external ear normal. Nose: Congestion present. No rhinorrhea. Mouth/Throat: Mouth: Mucous membranes are moist. Pharynx: Posterior oropharyngeal erythema present. No oropharyngeal exudate. Eyes: General: Right eye: No discharge. Left eye: No discharge. Extraocular Movements: Extraocular movements intact. Conjunctiva/sclera: Conjunctivae normal. Pupils: Pupils are equal, round, and reactive to light. Cardiovascular: Rate and Rhythm: Normal rate and regular rhythm. Pulses: Normal pulses. Heart sounds: Normal heart sounds. No murmur heard. No friction rub. Pulmonary: Effort: Pulmonary effort is normal. No respiratory distress. Breath sounds: Normal breath sounds. No stridor. No wheezing, rhonchi or rales. Chest: Chest wall: No tenderness. Abdominal: General: Abdomen is flat. There is no distension. Palpations: Abdomen is soft. There is no mass. Tenderness: There is no abdominal tenderness. There is no right CVA tenderness, left CVA tenderness, guarding or rebound. Hernia: No hernia is present. Genitourinary: Comments: Defers Self swab Musculoskeletal: General: No swelling, tenderness, deformity or signs of injury. Normal range of motion. Cervical back: Normal range of motion and neck supple. No rigidity. Right lower leg: No edema. Left lower leg: No edema. Lymphadenopathy: Cervical: No cervical adenopathy. Skin: General: Skin is warm and dry. Coloration: Skin is not jaundiced or pale. Findings: No bruising, erythema, lesion or rash. Neurological: General: No focal deficit present. Mental Status: She is alert and oriented to person, place, and time. Cranial Nerves: No cranial nerve deficit. Sensory: No sensory deficit. Motor: No weakness. Coordination: Coordination normal. Gait: Gait normal. Psychiatric: Mood and Affect: Mood normal. Behavior: Behavior normal. Thought Content: Thought content normal. Judgment: Judgment normal. Assessment and Plan ASSESSMENT/PLAN: 1. Urinary frequency - ICD9: 788.41, ICD10: R35.0 (primary diagnosis) acute - Send urine for culture - Patient education for prevention given - UA DIP, URINE (POC) - URINE CULTURE 2. Acute cough - ICD9: 786.2, ICD10: R05.1 X 2 days Exposure to pneumonia - XR CHEST 2V FRONTAL/LAT-negative 3. Encounter for screening examination for sexually transmitted infection - ICD9: V74.5, ICD10: Z11.3 Denies sx Requests testing for STI, declines blood testing 4. URI, acute - ICD9: 465.9, ICD10: J06.9 - Discussed viral etiology and rationale for treatment. - Symptomatic treatment with prn analgesia - Supportive care with fluids and rest Vaishali Judge APRN.ERICA documented in this encounter [facility] 05-16-2024 Note HNO ID: [id number] Author: SAAD MAZARIEGOS APRN.ERICA Service: ? Author Type: Nurse Practitioner Type: Progress Notes Filed: 05/16/2024 20:13 Note Text: This note was created using [employer] Subjective Cedric Hope is a 28 year old female. HPI Patient complains of 5 days of productive cough and along with sinus pain and pressure. She denies any fever specifically but does note chills and diaphoresis. She does note a history of sinus infections and states that this feels typical for her. Review of Systems Constitutional: Positive for chills and diaphoresis. HENT: Positive for congestion, sinus pressure and sinus pain. Respiratory: Positive for cough. Objective BP 140/89 Pulse 76 Temp 37.2 ?C (99 ?F) Resp 18 Wt 134.2 kg (295 lb 13.7 oz) LMP 01/02/2021 (Exact Date) SpO2 98% BMI 52.41 kg/m? Physical Exam Vitals and nursing note reviewed. Constitutional: General: She is not in acute distress. Appearance: Normal appearance. She is not ill-appearing. HENT: Head: Normocephalic. Mouth/Throat: Mouth: Mucous membranes are moist. Eyes: Conjunctiva/sclera: Conjunctivae normal. Cardiovascular: Rate and Rhythm: Normal rate and regular rhythm. Pulmonary: Effort: Pulmonary effort is normal. Breath sounds: Normal breath sounds. Musculoskeletal: General: Normal range of motion. Cervical back: Normal range of motion. Skin: General: Skin is warm and dry. Neurological: General: No focal deficit present. Mental Status: She is alert. Psychiatric: Mood and Affect: Mood normal. Behavior: Behavior normal. Assessment and Plan ASSESSMENT/PLAN: 1. Bacterial sinusitis - ICD9: 473.9, 041.9, ICD10: J32.9, B96.89 -As patient notes 5 days of sinus pain and pressure along with productive cough she will be started on doxycycline. She also notes yeast infections post antibiotic use and was given a prescription for fluconazole. She is to follow-up with PCP if symptoms are not improving. - DOXYCYCLINE MONOHYDRATE 100 MG CAPSULE - FLUCONAZOLE 150 MG TABLET Saad Mazariegos APRN.CNP [facility] 05-16-2024 History of Presen t illness Narrative This note was created using [employer] Subjective Cedric Hope is a 28 year old female. HPI Patient complains of 5 days of productive cough and along with sinus pain and pressure. She denies any fever specifically but does note chills and diaphoresis. She does note a history of sinus infections and states that this feels typical for her. Review of Systems Constitutional: Positive for chills and diaphoresis. HENT: Positive for congestion, sinus pressure and sinus pain. Respiratory: Positive for cough. Objective BP 140/89 Pulse 76 Temp 37.2 C (99 F) Resp 18 Wt 134.2 kg (295 lb 13.7 oz) LMP 01/02/2021 (Exact Date) SpO2 98% BMI 52.41 kg/m Physical Exam Vitals and nursing note reviewed. Constitutional: General: She is not in acute distress. Appearance: Normal appearance. She is not ill-appearing. HENT: Head: Normocephalic. Mouth/Throat: Mouth: Mucous membranes are moist. Eyes: Conjunctiva/sclera: Conjunctivae normal. Cardiovascular: Rate and Rhythm: Normal rate and regular rhythm. Pulmonary: Effort: Pulmonary effort is normal. Breath sounds: Normal breath sounds. Musculoskeletal: General: Normal range of motion. Cervical back: Normal range of motion. Skin: General: Skin is warm and dry. Neurological: General: No focal deficit present. Mental Status: She is alert. Psychiatric: Mood and Affect: Mood normal. Behavior: Behavior normal. Assessment and Plan ASSESSMENT/PLAN: 1. Bacterial sinusitis - ICD9: 473.9, 041.9, ICD10: J32.9, B96.89 -As patient notes 5 days of sinus pain and pressure along with productive cough she will be started on doxycycline. She also notes yeast infections post antibiotic use and was given a prescription for fluconazole. She is to follow-up with PCP if symptoms are not improving. - DOXYCYCLINE MONOHYDRATE 100 MG CAPSULE - FLUCONAZOLE 150 MG TABLET Saad Mazariegos APRN.ERICA documented in this encounter [facility] 05-16-2024 Instructions Saad Mazariegos APRN.CNP - 05/16/2024 8:09 PM EDT [facility] [address] [place], [place] [address] Emergency Department Diagnosis: Assessment SINUSITIS: You have sinusitis, an infection of the sinus cavities around the nose. This infection usually follows a respiratory illness; it can also be related to allergies, changes in atmospheric pressure (flying, diving), or anything that blocks nasal drainage. Symptoms include: headache, facial pain, a thick nasal discharge, congestion, and cough. The treatment includes antibiotic therapy, increasing oral fluids, and pain medication if needed. Nose spray decongestants (Afrin, Nikos-Synephrine) and oral decongestants may be needed to reduce congestion and drainage. Rarely the sinus must be irrigated to remove the infected material. Sinusitis can lead to serious complications by spreading to other areas such as the eye or brain. Please call your doctor or return here right away if you have any of the following more serious symptoms: Unusual swelling around the eye or trouble seeing. Increasing pain, severe headache, or toothache. Nausea, vomiting, or unusual drowsiness. documented in this encounter [facility] 05-11-2022 Instructions Kishore Rodríguez APRN.CNP - 05/11/2022 10:34 AM EDT [facility] PATIENT INFO ACUTE SINUSITIS OVERVIEW Rhinosinusitis, or more commonly sinusitis, is the medical term for inflammation (swelling) of the lining of the sinuses and nose. The sinuses are the hollow areas within the facial bones that are connected to the nasal openings. The sinuses are lined with mucous membranes, similar to the inside of the nose. There are two main types of sinusitis: acute and chronic. Acute sinusitis is inflammation that lasts for less than four weeks while chronic sinusitis lasts for more than 12 weeks. Acute sinusitis is common, affecting approximately one million people per year in the [place]. ACUTE SINUSITIS CAUSES The most common cause of acute sinusitis is a viral infection associated with the common cold. Bacterial sinusitis occurs much less commonly, in only 0.5 to 2 percent of cases, usually as a complication of viral sinusitis. Because antibiotics are effective only against bacterial, and not viral, infections, most people do not need antibiotics for acute sinusitis. ACUTE SINUSITIS SYMPTOMS Symptoms of acute sinusitis include: Nasal congestion or blockage Thick, yellow to green discharge from the nose Pain in the teeth Pain or pressure in the face that is worse when bending forwards Other acute sinusitis symptoms can include fever (temperature greater than 100.4 F or 38 C), fatigue, cough, difficulty or inability to smell, ear pressure or fullness, headache, and bad breath. In most cases, these symptoms develop over the course of one day and begin to improve within seven to 10 days. DO I NEED TO BE EXAMINED? It is difficult to know if you have a viral or bacterial sinus infection initially. However, most people with a viral infection improve without treatment within seven to 10 days after symptoms begin. Bacterial sinusitis also sometimes improves without treatment, although it can also worsen and require treatment. If one or more of the following bothersome symptoms last more than seven days, an examination by a healthcare provider is recommended: Thick, yellow to green discharge from the nose Face or tooth pain, especially if it is only on one side Tenderness over the maxillary sinuses (located on the left and right side of the nose, inside the cheekbones) Symptoms that initially improve and then worsen When to seek immediate help -- If you have one or more of the following symptoms, you should seek medical attention immediately (even if symptoms have been present for less than seven days): High fever (>102.5 F or 39.2 C) Sudden, severe pain in the face or head Double vision or difficulty seeing Confusion or difficulty thinking clearly Swelling or redness around one or both eyes Stiff neck, shortness of breath ACUTE SINUSITIS TREATMENT Initial treatment of a sinus infection aims to relieve symptoms since almost everyone will improve within the first seven to 10 days. Experts recommend avoiding antibiotics during this time unless there is clear evidence of a severe bacterial infection. Initial treatment Pain relief -- Non-prescription pain medications, such as acetaminophen (eg, Tylenol ) or ibuprofen (eg, Motrin , Advil ) are recommended for pain. Nasal irrigation and saline sprays -- Rinsing the nose with a salt-water (saline) solution is called nasal irrigation or nasal lavage. Saline is also available in a standard nasal spray, although this is not as effective as using larger amounts of water in an irrigation. Nasal irrigation is particularly useful for treating drainage down the back of the throat, sneezing, nasal dryness, and congestion. The treatment helps by rinsing out allergens and irritants from the nose. Saline rinses also clean the nasal lining and can be used before applying sprays containing medications, to get a better effect from the medication. Nasal lavage with warmed saline can be performed as needed, once per day, or twice daily for increased symptoms. Nasal lavage carries few risks when performed correctly. Saline nasal sprays and irrigation kits can be purchased [id number]. Saline mixes can also be purchased or patients can make their own solution. A variety of devices, including bulb syringes, Neti pots, and bottle sprayers, may be used to perform nasal lavage; instructions for nasal lavage are provided in the table. At least 200 mL (about 3/4 cup) of fluid is recommended for each nostril. Nasal decongestants -- Nasal decongestant sprays, including oxymetazoline (Afrin ) and phenylephrine (Nikos-synephrine ) can be used to temporarily treat congestion. However, these sprays should not be used for more than two to three days due to the risk of rebound congestion (when the nose is congested constantly unless the medication is used repeatedly). Other treatments -- Other treatments for congestion, such as oral antihistamines (such as diphenhydramine/Benadryl ) or zinc supplements are not proven to improve symptoms of sinusitis and can have unwanted side effects. Medications to thin secretions (such as guaifenesin) may help to clear mucus. Secondline treatment -- If symptoms have not improved in seven to ten days, you should arrange for medical evaluation. You may need further treatment. Nasal glucocorticoids -- Nasal glucocorticoids (steroids delivered by a nasal spray) can help to reduce swelling inside the nose, usually within two to three days. These drugs have few side effects and dramatically relieve symptoms in most people. There are a number of nasal glucocorticoids available by prescription. These drugs are all effective, but differ in how frequently they must be used and how much they cost. You may need to use a nasal decongestant for a few days before starting a nasal glucocorticoid to reduce nasal swelling; this will allow the nasal glucocorticoid to reach more areas of the nasal passages Do I need an antibiotic? -- If bothersome symptoms of sinusitis persist for 10 or more days, it is possible that you have bacterial sinusitis. The need for antibiotics depends upon the severity of your symptoms. Mild symptoms -- There are two possible treatment options if you have mild sinusitis symptoms: treat with antibiotics or continue to watch and wait for one week. Watching and waiting is a reasonable option because up to 75 percent of people with bacterial sinusitis improve within one month without antibiotics. During the watch and wait period, treatments to improve symptoms are recommended. If symptoms worsen or do not improve after watching and waiting, treatment with an antibiotic is usually recommended. Treatments to relieve symptoms are recommended while using antibiotics. Moderate or severe symptoms -- Most healthcare providers will prescribe an antibiotic for moderate to severe symptoms (temperature >38.3 C or 101 F and/or severe pain that interferes with usual activities). Treatments to relieve symptoms are also recommended during antibiotic treatment. One of the least expensive and most effective antibiotics for sinusitis is amoxicillin. An alternate antibiotic will be prescribed if you are allergic to penicillin. Regardless of which antibiotic is prescribed, it is important to follow the dosing instructions carefully and to finish the entire course of treatment. Taking the medication less often than prescribed or stopping the medication early can lead to complications, such as a recurrent infection. What if I do not improve with treatment? -- If you do not improve or worsen after a course of antibiotics, you should be re-examined. In some cases, symptoms of sinusitis improve but then recur. This is usually because the infection was not completely eliminated by the antibiotic. An alternate antibiotic, extended antibiotic treatment, and/or further testing may be recommended, depending upon your individual situation. documented in this encounter [facility] 05-11-2022 History of Presen t illness Narrative Subjective HPI Nontoxic-appearing female presents urgent care chief plaint sinus pressure left ear pain. Duration of symptom day and a half. Associated symptoms sinus pressure sore throat and left ear pain. States throat is scratchy from postnasal drip. States son has similar signs and symptoms. Denies recent COVID-19 infections or COVID-19 exposures. She is not vaccinated. Has been using some OTC medications this is helped some. Most prominent symptom today is sinus pressure. Denies any fever body aches chills productive cough chest pain shortness of breath pleuritic pain hemoptysis nausea vomiting abdominal pain change in bowel or bladder habits. Past medical history prescription medication use and allergies reviewed. .Patient presents with: Sinus Problem: left ear pain x 1.5 days PAST MEDICAL HISTORY Diagnosis Date Chlamydia 2013 and 2016 Depression Infertility, female Panic attacks depression PAST SURGICAL HISTORY Procedure Laterality Date DELIVERY ONLY 04/12/2017 PAST SURGICAL HISTORY OF oral (gum) surgery ALLERGIES Patient has no known allergies. MEDICATIONS busPIRone (BUSPAR) 10 mg tablet citalopram (CELEXA) 40 mg tablet ferrous sulfate (IRON ORAL) Take by mouth. SPRINTEC 0.25-35 mg-mcg per tablet omeprazole (PRILOSEC) 20 mg capsule Take 20 mg by mouth once daily. oxyCODONE-acetaminophen (PERCOCET) 5-325 mg tablet (Patient not taking: Reported on 05/11/2022) labetalol (TRANDATE) 100 mg tablet (Patient not taking: Reported on 05/11/2022) ibuprofen (MOTRIN) 600 mg tablet (Patient not taking: Reported on 05/11/2022) docusate sodium (COLACE ORAL) Take by mouth. (Patient not taking: Reported on 05/11/2022) Cndhzimr-Ls-Mon-Fe-FA ( VITAMIN) tab Take 1 tablet by mouth. (Patient not taking: Reported on 05/11/2022) hydrOXYzine Pamoate 100 mg capsule (Patient not taking: Reported on 10/07/2021 ) escitalopram oxalate (LEXAPRO) 20 mg tablet Take 1 tablet by mouth once daily. (Patient not taking: Reported on 10/07/2021 ) FAMILY HISTORY Problem Relation Age of Onset Allergies Mother Anxiety disorder Mother other (brain tumor benign) Father other (Depression, anxiety , panic attacks) Father Hypertension Father No Known Problems Sister No Known Problems Sister No Known Problems Brother No Known Problems Brother No Known Problems Brother Hypertension Maternal Grandmother Lipids Maternal Grandmother other (Depression) Maternal Grandmother Breast Cancer Maternal Grandmother Asthma Maternal Grandfather COPD Maternal Grandfather Heart Paternal Grandmother COPD Paternal Grandfather Liver Disease Paternal Grandfather No Known Problems Daughter Social History Tobacco Use Smoking status: Never Smokeless tobacco: Never Vaping Use Vaping Use: Never used Substance Use Topics Alcohol use: No Drug use: No BP 136/76 Pulse 118 Temp 37 C (98.6 F) Resp 18 Wt 131.5 kg (290 lb) LMP 01/02/2021 (Exact Date) SpO2 99% BMI 51.37 kg/m Hr 87 Review of Systems Constitutional: Negative for chills, fever and malaise/fatigue. HENT: Positive for congestion and sore throat. Negative for ear discharge, ear pain and sinus pain. Eyes: Negative for blurred vision, pain, discharge and redness. Respiratory: Negative for cough, hemoptysis, sputum production, shortness of breath, wheezing and stridor. Cardiovascular: Negative for chest pain. Gastrointestinal: Negative for abdominal pain, diarrhea, nausea and vomiting. Musculoskeletal: Negative for myalgias. Skin: Negative for itching and rash. Neurological: Negative for dizziness and headaches. Objective Physical Exam Constitutional: General: She is not in acute distress. Appearance: She is not diaphoretic. HENT: Head: Normocephalic. Right Ear: Tympanic membrane, ear canal and external ear normal. No mastoid tenderness. Left Ear: Tympanic membrane, ear canal and external ear normal. No mastoid tenderness. Ears: Comments: Clear fluid behind vital TMs. No infection noted. Nose: Congestion present. Mouth/Throat: Lips: [place]. Mouth: Mucous membranes are moist. Pharynx: Oropharynx is clear. Uvula midline. Posterior oropharyngeal erythema present. No pharyngeal swelling, oropharyngeal exudate or uvula swelling. Eyes: Conjunctiva/sclera: Conjunctivae normal. Pupils: Pupils are equal, round, and reactive to light. Cardiovascular: Rate and Rhythm: Normal rate and regular rhythm. Heart sounds: Normal heart sounds. Pulmonary: Effort: Pulmonary effort is normal. No tachypnea, accessory muscle usage or respiratory distress. Breath sounds: Normal breath sounds. No stridor. No wheezing, rhonchi or rales. Abdominal: Palpations: Abdomen is soft. Tenderness: There is no abdominal tenderness. Musculoskeletal: Cervical back: Normal range of motion and neck supple. No rigidity or tenderness. Lymphadenopathy: Cervical: No cervical adenopathy. Skin: General: Skin is warm and dry. Neurological: Mental Status: She is alert and oriented to person, place, and time. ASSESSMENT/PLAN: 1. Pharyngitis, unspecified etiology - ICD9: 462, ICD10: J02.9 (primary diagnosis) - STREP A MOLECULAR (POC) - COVID WITH FLUA+B, ROUTINE 2. Viral illness - ICD9: 079.99, ICD10: B34.9 - COVID WITH FLUA+B, ROUTINE Strep test negative. COVID-19 test ordered results pending alternative diagnosis discussed home quarantining recommended Patient was educated on supportive therapies. Patient will follow up with primary care provider as needed. Patient was instructed to immediately proceed to emergency room for any new, worsening, or symptoms lasting longer than anticipated. The patient's clinical presentation is otherwise unremarkable at this time. Based on exam and clinical finding, the patient is stable for discharge. Plan of care was discussed with patient. Patient verbalizes understanding and agrees to plan of care. This note was generated using [employer] software. It may contain errors in wording, punctuation, or spelling. Kishore Rodríguez APRN.ERICA documented in this encounter [facility] 10-12-2021 Miscellaneous Notes Patient given results and verbalized understanding of instructions given. Michelle Redman ----- Message from Nicolasa Dickens APRN.CNP sent at 10/10/2021 8:09 AM EDT ----- Please advise patient of negative influenza and COVID test. (result not viewed on MyChart). Nicolasa Dickens APRN.CNP documented in this encounter [facility] 10-21-2016 History of Past i llness Narrative Problem Noted Date Resolved Date Chlamydia infection affecting 10/22/19 17 04/27/2017 Overview: Needs FELIPE in November- JV Supervision of high risk pre gnancy due to social problems in first trimester 08/31/2016 04/27/2017 Overview: FOB and her are not together. She is a teen. Will consult social work at time of delivery. -JV Spotting in 08/26/2016 09/28/2016 Overview: 08/26/2016Patient was seen in the [facility] 08/10 for vaginal bleeding and cramping. She denies any spotting or cramping since 08/13. An ultrasound was done and revealed a gestational sac with yolk sac seen at 5w3d. Patient has NOB appointment with Dr Norris 08/31. Reviewed with Dr Norris and she will do ultrasound at NOB appointment.Patient to call/come in if bleeding or pain reoccurs or PRN problems. TKRN Sore throat 02/03/2014 09/28/2016 Last Assessment & Plan: Patient has sore throat, low grade fever, cough and difficulty to swallow. The difficulty to swallow began last night. She is tired, has malaise, and looks very run down, no recent contact with infections but she works at [employer]. A lot of people exposure. control counseling 09/11/2013 017 documented as of this encounter (statuses as of 10/12/2021) [facility] History of Past illness Narrative* Problem Noted Date Resolved Date Chlamydia infection affecting 10/22/19 17 04/27/2017 Overview: Needs FELIPE in November- JV Supervision of high risk pre gnancy due to social problems in first trimester 08/31/2016 04/27/2017 Overview: FOB and her are not together. She is a teen. Will consult social work at time of delivery. -JV Spotting in 08/26/2016 09/28/2016 Overview: 08/26/2016Patient was seen in the [facility] 08/10 for vaginal bleeding and cramping. She denies any spotting or cramping since 08/13. An ultrasound was done and revealed a gestational sac with yolk sac seen at 5w3d. Patient has NOB appointment with Dr Norris 08/31. Reviewed with Dr Norris and she will do ultrasound at NOB appointment.Patient to call/come in if bleeding or pain reoccurs or PRN problems. TKRN Sore throat 02/03/2014 09/28/2016 Last Assessment & Plan: Patient has sore throat, low grade fever, cough and difficulty to swallow. The difficulty to swallow began last night. She is tired, has malaise, and looks very run down, no recent contact with infections but she works at [employer]. A lot of people exposure. control counseling 09/11/2013 017 documented as of this encounter (statuses as of 05/11/2022) [facility] Pharyngitis, unspecified etiology- Primary Viral illness Unspecified viral infection, in conditions classified elsewhere and of unspecified site [facility] Diagnosis Sore throat- Primary Acute pharyngitis Odynophagia Dysphagia, unspecified Cough [facility] Diagnosis Sore throat- Primary Acute pharyngitis Odynophagia Dysphagia, unspecified Bacterial sinusitis- Primary Unspecified sinusitis (chronic) [facility] Diagnosis Sore throat- Primary Acute pharyngitis Odynophagia Dysphagia, unspecified Urinary frequency- Primary Acute cough Encounter for screening examination for sexually transmitted infection URI, acute Acute upper respiratory infections of unspecified site Acute cough [facility] Diagnosis Sore throat- Primary Acute pharyngitis Odynophagia Dysphagia, unspecified Acute cough [facility] Diagnosis Sore throat- Primary Acute pharyngitis Odynophagia Dysphagia, unspecified Sore throat- Primary Acute pharyngitis URI, acute Acute upper respiratory infections of unspecified site [facility] Diagnosis Sore throat- Primary Acute pharyngitis Odynophagia Dysphagia, unspecified Bacterial sinusitis- Primary Unspecified sinusitis (chronic) Feared condition not demonstrated Person with feared complaint in whom no diagnosis was made documented in this encounter [facility] note* Diagnosis Sore throat- Primary Acute pharyngitis Odynophagia Dysphagia, unspecified Burning with urination- Primary Dysuria documented in this encounter [facility] note* Diagnosis Sore throat- Primary Acute pharyngitis Odynophagia Dysphagia, unspecified URI, acute- Primary Acute upper respiratory infections of unspecified site Sore throat Acute pharyngitis documented in this encounter [facility] note* Diagnosis Sore throat- Primary Acute pharyngitis Odynophagia Dysphagia, unspecified Viral URI with cough- Primary Acute upper respiratory infections of unspecified site Flu-like symptoms Other general symptoms documented in this encounter [facility] note* Diagnosis Sore throat- Primary Acute pharyngitis Odynophagia Dysphagia, unspecified Sore throat- Primary Acute pharyngitis documented in this encounter [facility] note* Diagnosis Sore throat- Primary Acute pharyngitis Odynophagia Dysphagia, unspecified Urinary frequency- Primary Screening for STD (sexually transmitted disease) Screening examination for venereal disease Cutaneous skin tags Unspecified hypertrophic and atrophic condition of skin documented in this encounter [facility] Summary Purpose Family History No Family History Records FoundNo Family History Records FoundNo Family History Records FoundNo Family History Records Found Advance Directives No Advanced Directives Records FoundNo Advanced Directives Records FoundNo Advanced Directives Records FoundNo Advanced Directives Records Found Health Concerns Infection Onset Date Last Indicated Resolved Time COVID-19 Rule-Out 05/11/2022 05/11/2022 Additional Source Comments INFORMATION SOURCE (unrecogn ized section and content) DATE CREATED AUTHOR 03/04/2020 [facility] DATE CREATED AUTHOR AUTHOR'S ORGANIZ ATION 03/18/2024 [facility] DATE CREATED AUTHOR AUTHOR'S ORGANIZ ATION 12/14/2024 [facility] DATE CREATED AUTHOR AUTHOR'S ORGANIZ ATION 02/07/2025 [facility] Source Comments (unrecognize d section and content) In the event this informatio n is protected by the Federal Confidentiality of Alcohol and Drug Abuse Patient Records regulations: The Federal rules restrict any use of the information to criminally investigate or prosecute any alcohol or drug abuse patient.[facility] the event this information is protected by the Federal Confidentiality of Alcohol and Drug Abuse Patient Records regulations: The Federal rules restrict any use of the information to criminally investigate or prosecute any alcohol or drug abuse patient.[facility] the event this information is protected by the Federal Confidentiality of Alcohol and Drug Abuse Patient Records regulations: The Federal rules restrict any use of the information to criminally investigate or prosecute any alcohol or drug abuse patient.[facility] the event this information is protected by the Federal Confidentiality of Alcohol and Drug Abuse Patient Records regulations: The Federal rules restrict any use of the information to criminally investigate or prosecute any alcohol or drug abuse patient.[facility] the event this information is protected by the Federal Confidentiality of Alcohol and Drug Abuse Patient Records regulations: The Federal rules restrict any use of the information to criminally investigate or prosecute any alcohol or drug abuse patient.[facility] the event this information is protected by the Federal Confidentiality of Alcohol and Drug Abuse Patient Records regulations: The Federal rules restrict any use of the information to criminally investigate or prosecute any alcohol or drug abuse patient.[facility] the event this information is protected by the Federal Confidentiality of Alcohol and Drug Abuse Patient Records regulations: The Federal rules restrict any use of the information to criminally investigate or prosecute any alcohol or drug abuse patient.[facility] the event this information is protected by the Federal Confidentiality of Alcohol and Drug Abuse Patient Records regulations: The Federal rules restrict any use of the information to criminally investigate or prosecute any alcohol or drug abuse patient.[facility] the event this information is protected by the Federal Confidentiality of Alcohol and Drug Abuse Patient Records regulations: The Federal rules restrict any use of the information to criminally investigate or prosecute any alcohol or drug abuse patient.[facility] the event this information is protected by the Federal Confidentiality of Alcohol and Drug Abuse Patient Records regulations: The Federal rules restrict any use of the information to criminally investigate or prosecute any alcohol or drug abuse patient.[facility] the event this information is protected by the Federal Confidentiality of Alcohol and Drug Abuse Patient Records regulations: The Federal rules restrict any use of the information to criminally investigate or prosecute any alcohol or drug abuse patient.[facility] the event this information is protected by the Federal Confidentiality of Alcohol and Drug Abuse Patient Records regulations: The Federal rules restrict any use of the information to criminally investigate or prosecute any alcohol or drug abuse patient.[facility] the event this information is protected by the Federal Confidentiality of Alcohol and Drug Abuse Patient Records regulations: The Federal rules restrict any use of the information to criminally investigate or prosecute any alcohol or drug abuse patient.[facility] the event this information is protected by the Federal Confidentiality of Alcohol and Drug Abuse Patient Records regulations: The Federal rules restrict any use of the information to criminally investigate or prosecute any alcohol or drug abuse patient.[facility] the event this information is protected by the Federal Confidentiality of Alcohol and Drug Abuse Patient Records regulations: The Federal rules restrict any use of the information to criminally investigate or prosecute any alcohol or drug abuse patient.[facility] the event this information is protected by the Federal Confidentiality of Alcohol and Drug Abuse Patient Records regulations: The Federal rules restrict any use of the information to criminally investigate or prosecute any alcohol or drug abuse patient.[facility] the event this information is protected by the Federal Confidentiality of Alcohol and Drug Abuse Patient Records regulations: The Federal rules restrict any use of the information to criminally investigate or prosecute any alcohol or drug abuse patient.[facility] the event this information is protected by the Federal Confidentiality of Alcohol and Drug Abuse Patient Records regulations: The Federal rules restrict any use of the information to criminally investigate or prosecute any alcohol or drug abuse patient.[facility] Reason for Visit (unrecogniz ed section and content) Reason Comments Results Reason Comments Sinus Problem left ear pain x 1.5 days Specialty Diagnoses / Procedures Referred By Zena khan Referred To Contact Radiology / [facility] Diagnoses Encounter for general adult medical examination without abnormal findings room 3 chest xr Procedures RADIOLOGIC EXAM CHEST 2 VIEWS XR CHEST Self Radio [facility] [address] [place] [address] Referral ID Status Reason Start Date Expiration Date Visits Re quested Visits Authorized [id number] Closed 10/07/2021 07/17/2022 1 1 Reason Comments Cough Chest congestion, si nus congestion x5 days Reason Comments STD check STD check and cough and congestion x 2 days Reason Comments Cough Sinus pressure, jodie estion x2 days Reason Comments Sore Throat X4 days Reason Comments UTI Low back pain, burni ng with urination Reason Comments Cough Sinus, congestion x 2 days Reason Comments Cough HE, hot/cold chills & sore throat x3 days Reason Comments Sore Throat x this am, daughter + strep Reason Comments STD Reason Onset Date Comments Results 12/10/2024 Care Teams (unrecognized sec tion and content) Automation Analyst Relationship Specialty Start Date End Date Austin Castro [address] [facility] [address] [place] [address] PCP - General Family Practice 12/18/18 Automation Analyst Relationship Specialty Start Date End Date Alecia Rogers [address] [place] [address] PCP - General Family Medicine 05/11/22 Automation Analyst Relationship Specialty Start Date End Date Austin Castro MD [address] [facility] [address] [place], [place] [id number] PCP - General Family Medicine 12/18/18 05/10/22 Automation Analyst Relationship Specialty Start Date End Date Alecia Rogers MD [address] [place] [address] PCP - General Family Medicine 05/11/22 Automation Analyst Relationship Specialty Start Date End Date Alecia Rogers MD [address] [place] [address] PCP - General Family Medicine 05/11/22 Automation Analyst Relationship Specialty Start Date End Date Alecia Rogers MD [address] [place] [address] PCP - General Family Medicine 05/11/22 Automation Analyst Relationship Specialty Start Date End Date Alecia Rogers MD [address] [place] [address] PCP - General Family Medicine 05/11/22 Automation Analyst Relationship Specialty Start Date End Date Alecia Rogers MD [address] [place] [address] PCP - General Family Medicine 05/11/22 Automation Analyst Relationship Specialty Start Date End Date Alecia Rogers MD [address] [place] [address] PCP - General Family Medicine 05/11/22 Automation Analyst Relationship Specialty Start Date End Date Alecia Rogers MD [address] [place] [address] PCP - General Family Medicine 05/11/22 Automation Analyst Relationship Specialty Start Date End Date Alecia Rogres MD [address] [place] [address] PCP - General Family Medicine 05/11/22 Automation Analyst Relationship Specialty Start Date End Date Alecia Rogers MD [address] [place] [address] PCP - General Family Medicine 05/11/22 Automation Analyst Relationship Specialty Start Date End Date Alecia Rogers MD [address] [place] [address] PCP - General Family Medicine 05/11/22 Automation Analyst Relationship Specialty Start Date End Date Alecia Rogers MD [address] [place] [address] PCP - General Family Medicine 05/11/22 FOR RECORDS PERTAINING TO PATIENTS WHO ARE OR HAVE BEEN ENROLLED IN A CHEMICAL DEPENDENCY/SUBSTANCEABUSE PROGRAM, SOME INFORMATION MAY BE OMITTED. This clinical summary was aggregated from multiple sources. Caution should be exercised in using it in the provision of clinical care. This summary normalizes information from multiple sources, and as a consequence, information in this document may materially change the coding, format and clinical context of patient data. In addition, data may be omitted in some cases. CLINICAL DECISIONS SHOULD BE BASED ON THE PRIMARY CLINICAL RECORDS. [employer] provides no warranty or guarantee of the accuracy or completeness of information in this document.
[2025-02-20 21:07] LABS: Chlamydia By Nucleic Acid AMP Negative (Negative); Gonococcus By Nucleic Acid AMP Negative (Negative)
== END | disposition home or self-care (01) ==
LOC: LABSPEC 10:47
PROVIDERS: PCP Family Medicine; Referring Provider Advanced Practice Midwife; Visit Provider Advanced Practice Midwife
DX: Z11.3 Encounter for screening for infections with a predominantly sexual mode of transmission (principal); N89.8 Other specified noninflammatory disorders of vagina
CPT/HCPCS: 87070; 87205; 87491; 87591

== ENCOUNTER → 2025-03-01 | Outpatient (CLI) | payer OTHER, SELFPAY ==
[2025-03-01 14:36] LABS: hCG Titer Quant., Serum < 1 mIU/mL (<9 non-preg)
== END | disposition home or self-care (01) ==
PROVIDERS: PCP Family Medicine; Visit Provider Obstetrics & Gynecology
DX: N91.2 Amenorrhea, unspecified (principal)
CPT/HCPCS: 36415; 84702

== ENCOUNTER → 2025-03-27 | Outpatient (CLI) | payer OTHER, SELFPAY ==
[2025-03-27 15:44] LABS: Hematocrit 35.3 % (37-47); Hemoglobin 11.1 g/dL (12.0-15.0); Immature Granulocytes Count 0.020 X10^3/uL (0.0-0.0); Mean Corp Hgb Conc 31.4 g/dL (32-36); Mean Corpuscular Volume 79.7 fL (81-99); Mean Platelet Vol. 10.2 fl (6.2-12.0); NRBC Flagged by Analyzer 0 % (0-5); Platelet Count 256 K/mm3 (150-450); RBC Distribution Width CV 15.2 % (11.6-14.6); RBC Distribution Width SD 44.0 fl (35.1-43.9); Red Blood Count 4.43 M/mm3 (4.2-5.4); White Blood Count 8.2 K/mm3 (4.4-11.0)
[2025-03-27 16:00] LABS: Color, Urine Yellow (Yellow); Glucose, Dipstick Normal (Normal); Ketone-Dipstick Negative (Negative); Leukocyte Esterase-Dipstick 25 /ul (Negative); Nitrite-Dipstick Negative (Negative); Occult Blood-Urine 150 /ul (Negative); Protein-Dipstick 30 mg/dl (Negative); Specific Gravity, Urine 1.015 (1.002-1.030); Urine Bilirubin Dipstick Negative (Negative)
[2025-03-27 16:12] LABS: AST(SGOT) 20 U/L (<=31); Alanine Aminotransfer ALT/SGPT 23 U/L (<=34); Albumin, Serum 4.0 g/dL (3.5-5.0); Alkaline Phosphatase 87 U/L (35-104); Anion Gap 10 (5-15); BUN 12 mg/dL (4-19); BUN/Creat Ratio 21.4 RATIO (10-20); Calcium,Total 8.9 mg/dL (7.6-11.0); Carbon Dioxide 26.6 mmol/L (21.0-32.0); Chloride 103 mmol/L (98-108); Globulin 3.4 g/dL (2.2-4.2); Glucose 90 mg/dL (70-99); Potassium 3.8 mmol/L (3.3-5.1)
[2025-03-27 17:11] LABS: Amylase 38 U/L (28-100); Lipase 20 U/L (13-75)
== END | disposition home or self-care (01) ==
PROVIDERS: PCP Family Medicine
DX: N39.0 Urinary tract infection, site not specified (principal)
CPT/HCPCS: 36415; 80053; 81002; 82150; 83690; 85025; 87086; 87088

== ENCOUNTER 2025-05-18 17:37 | Emergency (ER) | payer OTHER, SELFPAY ==
[2025-05-18 17:38] VITALS: BP 128/99; PULSE 85; RESP 18; TEMP 36.1; O2SAT 98; BMI 48.3
--- NOTE | 2025-05-18 18:01 | CT_ITS ---
PROCEDURE: CT/Abdomen/Pelvis without Cont
--- NOTE | 2025-05-18 18:02 | ED.VIS.FEGU ---
HPI HPI - Female History of Present Illness Chief Complaint: Female C/O Detail of Chief Complaint: Lower pelvic pain Informant: patient Narrative Narrative: Patient presents with pelvic pain and small amount of vaginal bleeding. She developed some cramping last evening and then had intercourse and developed more pain. Denies any abnormal vaginal discharge. She has had no fever. She has an IUD that was placed 6 months ago. When she wipes she notices a small amount of blood. She has had no fever chills or sweats. Denies dysuria urgency or frequency. PFSH PFSH Medical History Ulcer of gingiva Depression Anxiety Diabetes Anemia Back pain Gastric reflux Non-smoker CPAP (continuous positive airway pressure) dependence Hypertension Chest pain hypertension History of EKG delivery delivered depression Lab test positive for detection of COVID-19 virus LUIS (obstructive sleep apnea) Infertility Panic attacks Bipolar 1 disorder Asthma Hemorrhoids Home Medications ?Medication ?Instructions ?Recorded ?Last Taken ?Type metoprolol tartrate 25 mg tablet 25 mg PO QDAY 01/04/24 Unknown History pantoprazole 40 mg tablet,delayed 40 mg PO DAILY #30 tabs 02/02/24 Unknown Rx release levonorgestrel (Mirena) 1 device intrauterine ONCE 08/20/24 Unknown History venlafaxine 150 mg 150 mg PO QAM #90 caps 01/23/25 Unknown Rx capsule,extended release 24 hr propranolol 10 mg tablet 10 mg PO TID PRN anxiety #90 tabs 02/22/25 Unknown Rx trazodone 100 mg tablet 100 mg PO QHS PRN insomnia #90 tabs 02/22/25 Unknown Rx doxycycline monohydrate 100 mg 100 mg PO BID #20 CAPSULES 05/18/25 Unknown Rx capsule fluconazole 150 mg tablet 150 mg PO DAILY 1 dose #2 tabs 05/18/25 Unknown Rx Allergy/AdvReac Type Severity Reaction Status Date / Time No Known Allergies Allergy Verified 05/18/25 17:38 Family History Father Brain tumor (benign) Depression CAD (coronary artery disease) Grandmother Hypertension Hyperlipemia Depression Mother Allergies Grandfather Asthma COPD (chronic obstructive pulmonary disease) Surgical History S/P laparoscopic cholecystectomy H/O oral surgery Hx of section Social History household members: family current occupational status: employed 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 Smoking Status: Current some day smoker tobacco type: cigarettes second hand exposure: No alcohol intake: never substance use type: does not use caffeine: Yes what type of physical activity do you participate in: aerobics frequency: 3-4 times per week seatbelt use: always do you feel safe at home: Yes ROS ROS ED Review of Systems ROS Unobtainable: other Constitutional Constitutional ED: Reports lethargy; Denies chills, fever(s), sweats or weight loss Eyes Eyes: Denies blurry vision, change in vision or diplopia ENT ENT ED: Denies rhinorrhea or sore throat Cardiovascular Cardiovascular: Denies chest pain, orthopnea or racing heartbeat Respiratory/Chest Respiratory/Chest: Denies cough, dyspnea, dyspnea on exertion, orthopnea or sputum Gastrointestinal Gastrointestinal: Reports abdominal pain; Denies diarrhea, nausea or vomiting Genitourinary Genitourinary ED: Reports other Details: Vaginal bleeding ; Denies dysuria, hematuria or urinary frequency Musculoskeletal Musculoskeletal: Denies arthralgias, back pain, myalgias or neck pain Integumentary Denies abscess, Abrasions or rash Neurologic Neurologic: Denies headache(s) or weakness Psychiatric Psychiatric: Denies anxiety, depression or suicidal thoughts Endocrine Endocrinology: Denies polydipsia, polyphagia or polyuria Hematologic/Lymphatic Hematologic/Lymphatic: Denies easy bleeding, easy bruising or lymphadenopathy Allergic/Immunologic Allergic/Immunologic ED: Denies mouth swelling, tongue swelling or urticaria EXAM Physical Exam Const Vital Signs: 05/18/25 17:38 05/18/25 19:37 Temperature 96.9 F L Temperature Source Temporal Pulse Rate 85 74 Respiratory Rate 18 16 Blood Pressure 128/99 H 117/53 L Blood Pressure Mean 108 74 Pulse Ox 98 100 Oxygen Delivery Method Room Air Room Air Positive well nourished and well developed General Appearance ED: well developed and NAD HEENT Reports TM's clear and moist mucous membranes normocephalic and atraumatic; Negative for trauma or tenderness Tympanic Membrane ED: Yes TM's clear Eyes PERRL and EOMs intact bilaterally General Eye ED: Negative for pale conjunctiva or scleral icterus Neck no lymphadenopathy, supple and no JVD General: Negative for tenderness Chest Wall inspection of chest normal and palpation of chest normal Chest: Negative for tenderness Resp normal respiratory effort and clear to auscultation bilaterally Effort and Inspection: Negative for respiratory distress or pain with movement Auscultation: Negative for rhonchi, wheezes or diminished lung sounds Cardio regular rate, regular rhythm, S1 normal heart sound, S2 normal heart sound and no murmurs Peripheral Pulses: pulses 2+ throughout GI normal to inspection, nondistended, normoactive bowel sounds, soft to palpation, non-distended and no masses GI Narrative: Large body habitus. Mild diffuse tenderness over the suprapubic region of the abdomen. No rebound, rigidity, or peritoneal signs. No mass palpated. Narrative: Pelvic exam performed. Small amount of dried blood noted from the cervix. Cannot visualize the string for the IUD. Mild tenderness with cervical motion. No obvious abnormal vaginal discharge. Back/Spine no CVA tenderness and no thoracic nor lumbar tenderness Extremity normal to inspection General Extremety ED: Negative for edema General Extremity: Negative for edema Neuro oriented x3, CN's II-XII intact bilaterally, no sensory deficits noted and gait normal Sensorium / Orientation: awake, alert, oriented to person, oriented to place and oriented to time Motor Exam: strength 5/5 throughout and strength abnormal Psych mental status grossly normal Skin no rashes or lesions noted and no wounds MDM MDM MDM Narrative Medical decision making narrative: Patient presented with lower pelvic pain and small nonbleeding. She has a IUD in place. IV line established. CBC with differential obtained showed a white count of 8.8 with hemoglobin 12.1 and platelet count of 252. Urinalysis unremarkable. Patient had chlamydia gonorrhea testing that was negative. She had a CT scan of the abdomen pelvis that showed good placement of the IUD. No other abnormalities noted. Discussed case with GED INSTRUCTOR on-call who recommended treating patient with doxycycline and outpatient follow-up. Lab Data Attestation: I reviewed the patient's lab results. Labs: Laboratory Results - last 24 hr 05/18/25 18:15 WBC 8.8 RBC 4.78 Hgb 12.1 Hct 37.3 MCV 78.0 L MCH 25.3 L MCHC 32.4 RDW Std Deviation 43.2 RDW Coeff of Juliann 15.4 H Plt Count 252 MPV 10.5 Immature Gran % (Auto) 0.200 Neut % (Auto) 68.3 Lymph % (Auto) 24.0 [place] % (Auto) 5.7 Eos % (Auto) 1.3 Baso % (Auto) 0.5 Absolute Neuts (auto) 6.0 Absolute Lymphs (auto) 2.11 Nucleated RBC % 0 Serum , Qual NEGATIVE Urine Color Yellow Urine Clarity Clear Urine pH 6.0 Ur Specific [place] 1.025 Urine Protein 30 H Urine Glucose (UA) Normal Urine Ketones Negative Urine Occult Blood 50 H Urine Nitrite Negative Urine Bilirubin Negative Urine Urobilinogen Normal Ur Leukocyte Esterase Negative Urine RBC 0-5 SEEN Urine WBC 0-5 SEEN Ur Squamous Epith Cells 0-5 SEEN Urine Bacteria RARE Urine Mucus 0 SEEN Radiography Diagnostic Testing: Clinical Impression(s) from Imaging Studies Abdomen/Pelvis CT 05/18/25 18:01 IMPRESSION: 1. No urolithiasis or signs of urinary tract obstruction. 2. Mildly thickened urinary bladder, possibly due to under-distention or cystitis. 3. Hepatomegaly with diffuse hepatic steatosis. Reading Location: [facility] Discharge Plan Triage Chief Complaint: Female C/O ED Provider: Lou Stover Dx/Rx/DC Orders Clinical Impression: Pelvic pain, Vaginal bleeding Instructions: ED Abdominal Pain Unkn Cause Fem Prescriptions: New doxycycline monohydrate 100 mg capsule 100 mg PO BID Qty: 20 0RF fluconazole 150 mg tablet 150 mg PO DAILY Qty: 2 0RF Rx Instructions: administer on day 1 of therapy No Action metoprolol tartrate 25 mg tablet 25 mg PO QDAY Mirena 21 mcg/24hr (up to 8 yrs) 52 mg intrauterine device 1 device intrauterine ONCE Rx Instructions: as a single dose venlafaxine 150 mg capsule,extended release 24hr 150 mg PO QAM Qty: 90 1RF propranolol 10 mg tablet 10 mg PO TID PRN (Reason: anxiety) Qty: 90 2RF trazodone 100 mg tablet 100 mg PO QHS PRN (Reason: insomnia) Qty: 90 1RF pantoprazole 40 mg tablet,delayed release (DR/EC) 40 mg PO DAILY Qty: 30 0RF Primary Care Provider: Alecia Rogers Referrals: Alecia Rogers MD [Primary Care Provider, Family Practice] Gabriela Rachel DO [Med Staff - Active Staff, Obstetrics-Gynecology (OBGYN)] - 10-14 Days if not better Print Language: Barbadian Disposition Disposition: Home, Self Care Discharge Date/Time: 05/18/25 20:34
[2025-05-18 18:19] LABS: Mucous, Urine 0 SEEN /hpf (<or=2+)
[2025-05-18 18:22] LABS: Hematocrit 37.3 % (37-47); Hemoglobin 12.1 g/dL (12.0-15.0); Immature Granulocytes Count 0.020 X10^3/uL (0.0-0.0); Mean Corp Hgb Conc 32.4 g/dL (32-36); Mean Corpuscular Volume 78.0 fL (81-99); Mean Platelet Vol. 10.5 fl (6.2-12.0); NRBC Flagged by Analyzer 0 % (0-5); Platelet Count 252 K/mm3 (150-450); RBC Distribution Width CV 15.4 % (11.6-14.6); RBC Distribution Width SD 43.2 fl (35.1-43.9); Red Blood Count 4.78 M/mm3 (4.2-5.4); White Blood Count 8.8 K/mm3 (4.4-11.0)
[2025-05-18 18:23] LABS: Color, Urine Yellow (Yellow); Glucose, Dipstick Normal (Normal); Ketone-Dipstick Negative (Negative); Leukocyte Esterase-Dipstick Negative /ul (Negative); Nitrite-Dipstick Negative (Negative); Occult Blood-Urine 50 /ul (Negative); Protein-Dipstick 30 mg/dl (Negative); Specific Gravity, Urine 1.025 (1.002-1.030); Urine Bilirubin Dipstick Negative (Negative)
[2025-05-18 18:40] LABS: Internal QC Validated? YES +Cl - CLEAR BKGD; Pregnancy, Serum, hCG Quali. NEGATIVE Negative; Red Blood Cells-Urine 0-5 SEEN /hpf (0-5); Squamous Epithelial Cells - UA 0-5 SEEN /hpf (5-10)
[2025-05-18 18:41] LABS: Record Kit Lot#, Serum Preg. 0000980607
[2025-05-18 19:37] VITALS: BP 117/53; PULSE 74; RESP 16; O2SAT 100
[2025-05-18] MEDS: Ketorolac 30 MG/ML Syringe IV (20:16)
[2025-05-18 20:32] VITALS: BP 117/59; PULSE 70; RESP 16; TEMP 36.7; O2SAT 98
== END 2025-05-18 20:34 | disposition home or self-care (01) ==
PROVIDERS: Emergency Provider Emergency Medicine; PCP Family Medicine; Visit Provider Emergency Medicine
DX: R10.20 Pelvic and perineal pain unspecified side (principal); E11.9 Type 2 diabetes mellitus without complications; N93.9 Abnormal uterine and vaginal bleeding, unspecified; I10 Essential (primary) hypertension; Z97.5 Presence of (intrauterine) contraceptive device; G47.33 Obstructive sleep apnea (adult) (pediatric); Z99.89 Dependence on other enabling machines and devices; K21.9 Gastro-esophageal reflux disease without esophagitis; Z79.899 Other long term (current) drug therapy; F41.9 Anxiety disorder, unspecified; F32.A Depression, unspecified; Z90.49 Acquired absence of other specified parts of digestive tract; F17.210 Nicotine dependence, cigarettes, uncomplicated
CPT/HCPCS: 74176; 81001; 84703; 85025; 87491; 87591; 96374; 99283; A4216

== ENCOUNTER → 2025-05-28 | Outpatient (CLI) | payer OTHER, SELFPAY ==
[2025-05-31 07:07] LABS: Chlamydia By Nucleic Acid AMP Negative (Negative); Gonococcus By Nucleic Acid AMP Negative (Negative)
== END | disposition home or self-care (01) ==
LOC: LABSPEC 14:10
PROVIDERS: PCP Family Medicine; Visit Provider Nurse Practitioner Women's Health
DX: Z11.3 Encounter for screening for infections with a predominantly sexual mode of transmission (principal); N89.8 Other specified noninflammatory disorders of vagina
CPT/HCPCS: 87070; 87205; 87491; 87591

== ENCOUNTER → 2025-06-10 | Outpatient (CLI) | payer OTHER, SELFPAY ==
--- NOTE | 2025-06-10 16:00 | US_ITS ---
PROCEDURE: PELVIC W/ TRANSVAGINAL 06/10/2025 REASON FOR EXAM: PELVIC PAIN TECHNIQUE: Procedure Code: [id number] Modality: US Procedure: PELVIC W/ TRANSVAGINAL COMPARISON: 03 October 2024. FINDINGS: Uterus: The uterus measures 9.2 x 5.2 x 4.1 cm. Homogenous appearance without evidence of discrete cyst, echogenic calculi, or mass. The endometrial stripe measures 7 mm with portions of an intrauterine device visualized. Multiple simple nabothian cysts visualized in the cervix. Right ovary: The right ovary was not visualized. Left ovary: The left ovary is normal in size measuring 3.6 x 3.6 x 3.2 cm. No suspicious masses. Blood flow to the adnexa is normal with arterial and venous waveforms documented. BLADDER: The bladder was not fully distended. The ureteral jets were notseen. Prevoid bladder volume is 59 ml. No ascites. US/Pelvic w/ Transvaginal IMPRESSION: 1. Limited visualization of the intrauterine device, however does appear to be in the expected location. 2. Nonvisualization of the right ovary. Reading Location: [id number]
== END | disposition home or self-care (01) ==
LOC: US 15:59
PROVIDERS: PCP Family Medicine; Referring Provider Nurse Practitioner Women's Health; Visit Provider Nurse Practitioner Women's Health
DX: R10.20 Pelvic and perineal pain unspecified side (principal)
CPT/HCPCS: 76830; 76856

== ENCOUNTER 2025-06-11 09:41 | Emergency (ER) | payer OTHER, SELFPAY ==
[2025-06-11 09:41] VITALS: BP 142/74; PULSE 76; RESP 14; TEMP 36.2; O2SAT 98; BMI 47.7
--- NOTE | 2025-06-11 09:57 | EKG12_ITS ---
Test Reason : SYCOPE Blood Pressure : */* mmHG Vent. Rate : 71 BPM Atrial Rate : 71 BPM P-R Int : 164 ms QRS Dur : 86 ms QT Int : 378 ms P-R-T Axes : 25 4 0 degrees QTcB Int : 410 ms Normal sinus rhythm Inferior infarct , age undetermined Abnormal ECG Confirmed by BERLIN FORD, ORQUIDEA ([id number]), editor dictionary SHANT LUNSFORD ([id number]) on 06/12/2025 9:15:16 AM Referred By: Confirmed By: ORQUIDEA SLADE MD
--- NOTE | 2025-06-11 09:57 | EX.ED.DYSGE1 ---
HPI History of Present Illness Chief Complaint: Syncope Informant: patient Onset/Context/Timing Onset: Today Current Severity: Gone Maximum Severity: Mild Narrative Narrative: [id number] female history of anxiety with panic attacks, bipolar, prior anemia. States today after she had bowel movement she wiped and she had a brief syncopal episode lasted a few seconds. Denies any injuries. No chest pain. No shortness of breath. No abdominal pain. No vomiting or diarrhea. No melena. No fever or dysuria. No cardiac history. Prior similar symptoms: No Recent Illness/Hospitalization: No PFSH PFSH Medical History Ulcer of gingiva Depression Anxiety Diabetes Anemia Back pain Gastric reflux Non-smoker CPAP (continuous positive airway pressure) dependence Hypertension Chest pain hypertension History of EKG delivery delivered depression Lab test positive for detection of COVID-19 virus LUIS (obstructive sleep apnea) Infertility Panic attacks Bipolar 1 disorder Asthma Hemorrhoids Home Medications ?Medication ?Instructions ?Recorded ?Last Taken ?Type pantoprazole 40 mg tablet,delayed 40 mg PO DAILY #30 tabs 02/02/24 Unknown Rx release levonorgestrel (Mirena) 1 device intrauterine ONCE 08/20/24 Unknown History venlafaxine 150 mg 150 mg PO QAM #90 caps 01/23/25 Unknown Rx capsule,extended release 24 hr propranolol 10 mg tablet 10 mg PO TID PRN anxiety #90 tabs 02/22/25 Unknown Rx trazodone 100 mg tablet 100 mg PO QHS PRN insomnia #90 tabs 02/22/25 Unknown Rx tirzepatide 7.5 mg/0.5 mL 7.5 mg subcut QWEEK 05/28/25 Unknown History subcutaneous pen injector (Mounjaro) Allergy/AdvReac Type Severity Reaction Status Date / Time No Known Allergies Allergy Verified 06/11/25 09:43 Family History Father Brain tumor (benign) Depression CAD (coronary artery disease) Grandmother Hypertension Hyperlipemia Depression Mother Allergies Grandfather Asthma COPD (chronic obstructive pulmonary disease) Surgical History S/P laparoscopic cholecystectomy H/O oral surgery Hx of section Social History household members: family current occupational status: employed 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 Constitutional Constitutional ED: Denies chills or fever(s) Eyes Eyes: Denies blurry vision ENT ENT ED: Denies ear pain Cardiovascular Cardiovascular: Denies chest pain Respiratory/Chest Respiratory/Chest: Denies cough Gastrointestinal Gastrointestinal: Denies abdominal pain Genitourinary Genitourinary ED: Denies dysuria Musculoskeletal Musculoskeletal: Denies arthralgias Integumentary Denies abscess Neurologic Neurologic: Denies headache(s) Psychiatric Psychiatric: Reports anxiety Endocrine Endocrinology: Denies cold intolerance Hematologic/Lymphatic Hematologic/Lymphatic: Reports none Allergic/Immunologic Allergic/Immunologic ED: Denies mouth swelling, tongue swelling or urticaria EXAM Physical Exam Narrative Exam Narrative: Well-appearing 29-year-old female. Sitting upright in bed. Vital signs stable afebrile. No acute distress. Pulse ox 98% on room air no hypoxia. Accompanied with another woman. H EENT exam pupils round react light. Moist mutes membranes. Neck nontender no JVD. No lymphadenopathy. Lungs clear to auscultation bilaterally. Heart regular rhythm no murmur. Chest wall and ribs nontender. Abdomen soft nontender. Moving all 4 extremities. Normal strength. Normal range of motion. Nontender no edema. Back nontender. Neurologically she is awake alert. Answer questions following commands. NIH 0. Benign exam. Const Vital Signs: 06/11/25 09:41 06/11/25 10:36 06/11/25 10:37 Temperature 97.1 F L Temperature Source Temporal Pulse Rate 76 71 Pulse Rate [Lying] Pulse Rate [Sitting (for 1 minute prior to obtaining)] Pulse Rate [Standing (for 1 minute prior to obtaining)] Respiratory Rate 14 Respiratory Effort Normal Non-Labored Respiratory Pattern Normal Blood Pressure 142/74 H 85/54 L Blood Pressure [Lying] Blood Pressure [Sitting (for 1 minute prior to obtaining)] Blood Pressure [Standing (for 1 minute prior to obtaining)] Blood Pressure Mean 96 64 Blood Pressure Mean [Lying] Blood Pressure Mean [Sitting (for 1 minute prior to obtaining)] Blood Pressure Mean [Standing (for 1 minute prior to obtaining)] Pulse Ox 98 Oxygen Delivery Method Room Air 06/11/25 11:13 06/11/25 12:00 Temperature Temperature Source Pulse Rate 66 Pulse Rate [Lying] 78 Pulse Rate [Sitting (for 1 minute prior to obtaining)] 86 Pulse Rate [Standing (for 1 minute prior to obtaining)] 77 Respiratory Rate 16 Respiratory Effort Respiratory Pattern Blood Pressure 113/59 L Blood Pressure [Lying] 118/66 Blood Pressure [Sitting (for 1 minute prior to obtaining)] 119/66 Blood Pressure [Standing (for 1 minute prior to obtaining)] 113/67 Blood Pressure Mean 77 Blood Pressure Mean [Lying] 83 Blood Pressure Mean [Sitting (for 1 minute prior to obtaining)] 83 Blood Pressure Mean [Standing (for 1 minute prior to obtaining)] 82 Pulse Ox 98 Oxygen Delivery Method Room Air MDM MDM MDM Narrative Medical decision making narrative: 29-year-old female brief syncopal episode lasting seconds. Exam benign. Screening labs EKG and orthostatic vital signs to be obtained. Repeat exam patient is doing well. Treated with a liter of fluid. She is having a mild headache so we given Tylenol. She be discharged to home. Treated as vasovagal syncope. History & Record Review Discussion w/independent historian: Patient Additional record(s) reviewed:: Prior outpatient record, Prior ED visit and Prior labs Lab Data Attestation: I reviewed the patient's lab results. Lab results narrative: CBC shows white count 13.9 H&H of 13 and 41. Platelets 260. Electrolytes shows gap of 11. Normal BUN of 14 creatinine 0.7. Glucose 96. Labs: Laboratory Results - last 24 hr 06/11/25 10:18 WBC 13.9 H RBC 5.14 Hgb 13.1 Hct 41.7 MCV 81.1 MCH 25.5 L MCHC 31.4 L RDW Std Deviation 44.3 H RDW Coeff of Juliann 15.1 H Plt Count 260 MPV 10.7 Immature Gran % (Auto) 0.400 Neut % (Auto) 85.8 H Lymph % (Auto) 8.7 L [place] % (Auto) 4.8 Eos % (Auto) 0.1 Baso % (Auto) 0.2 Absolute Neuts (auto) 11.9 H Absolute Lymphs (auto) 1.21 Nucleated RBC % 0 Sodium 138 Potassium 4.4 Chloride 104 Carbon Dioxide 23.9 Anion Gap 11 BUN 14 Creatinine 0.72 Estim Creat Clear Calc 154.19 Est GFR (MDRD) Non-Af 118 BUN/Creatinine Ratio 18.9 Glucose 96 Calcium 8.9 Rhythm Strip Rhythm Strip: Sinus Rhythm Rate: 71 Ectopy: None EKG Initial EKG: Attestation: I personally reviewed and interpreted this EKG as follows: Interpretation: Sinus Rhythm and No Acute Injury Pattern Comments: Normal sinus rhythm rate of 71 no acute signs of DE or ischemia. Discharge Plan Triage Chief Complaint: Syncope ED Provider: Spencer Dawson Dx/Rx/DC Orders Clinical Impression: Syncope, Vasovagal syncope Instructions: ED Fainting, Vagal Reaction Prescriptions: No Action Mirena 21 mcg/24hr (up to 8 yrs) 52 mg intrauterine device 1 device intrauterine ONCE Rx Instructions: as a single dose venlafaxine 150 mg capsule,extended release 24hr 150 mg PO QAM Qty: 90 1RF propranolol 10 mg tablet 10 mg PO TID PRN (Reason: anxiety) Qty: 90 2RF trazodone 100 mg tablet 100 mg PO QHS PRN (Reason: insomnia) Qty: 90 1RF Mounjaro 7.5 mg/0.5 mL pen injector 7.5 mg subcut QWEEK pantoprazole 40 mg tablet,delayed release (DR/EC) 40 mg PO DAILY Qty: 30 0RF Primary Care Provider: Hannah López Referrals: Alecia Rogers MD [Med Staff - Director Dietetics Department, Family Practice] - 3-5 Days if not improving Activity Restrictions/Additional Instructions: Plenty of fluids and rest. Follow-up with your doctor as needed. Print Language: Monegasque Disposition Disposition: Home, Self Care
[2025-06-11 10:25] LABS: Hematocrit 41.7 % (37-47); Hemoglobin 13.1 g/dL (12.0-15.0); Immature Granulocytes Count 0.050 X10^3/uL (0.0-0.0); Mean Corp Hgb Conc 31.4 g/dL (32-36); Mean Corpuscular Volume 81.1 fL (81-99); Mean Platelet Vol. 10.7 fl (6.2-12.0); NRBC Flagged by Analyzer 0 % (0-5); Platelet Count 260 K/mm3 (150-450); RBC Distribution Width CV 15.1 % (11.6-14.6); RBC Distribution Width SD 44.3 fl (35.1-43.9); Red Blood Count 5.14 M/mm3 (4.2-5.4); White Blood Count 13.9 K/mm3 (4.4-11.0)
[2025-06-11 10:37] VITALS: BP 85/54; PULSE 71
[2025-06-11 10:55] LABS: Anion Gap 11 (5-15); BUN 14 mg/dL (4-19); BUN/Creat Ratio 18.9 RATIO (10-20); Calcium,Total 8.9 mg/dL (7.6-11.0); Carbon Dioxide 23.9 mmol/L (21.0-32.0); Chloride 104 mmol/L (98-108); Estimated Creatinine Clearance 154.19 ml/min (50-250); Glucose 96 mg/dL (70-99); Potassium 4.4 mmol/L (3.3-5.1)
[2025-06-11] MEDS: 0.9% Normal Saline (1000mL) 1,000 ML 999 ML IV (11:04)
[2025-06-11 11:13] VITALS: BP 113/67; BP 118/66; BP 119/66; PULSE 77; PULSE 78; PULSE 86
[2025-06-11 12:00] VITALS: BP 113/59; PULSE 66; RESP 16; O2SAT 98
[2025-06-11 12:48] VITALS: BP 113/59; PULSE 66; RESP 16; TEMP 37.2; O2SAT 98
== END 2025-06-11 12:49 | disposition home or self-care (01) ==
PROVIDERS: Emergency Provider Emergency Medicine; PCP Nurse Practitioner Family; Visit Provider Emergency Medicine
DX: R55 Syncope and collapse (principal); E11.9 Type 2 diabetes mellitus without complications; F41.9 Anxiety disorder, unspecified; I10 Essential (primary) hypertension; G47.33 Obstructive sleep apnea (adult) (pediatric); Z99.89 Dependence on other enabling machines and devices; K21.9 Gastro-esophageal reflux disease without esophagitis; Z79.899 Other long term (current) drug therapy; Z90.49 Acquired absence of other specified parts of digestive tract; R51.9 Headache, unspecified
CPT/HCPCS: 80048; 85025; 93005; 96360; 99285; A4216

== ENCOUNTER 2025-06-20 22:12 | Emergency (ER) | payer OTHER, SELFPAY ==
[2025-06-20 22:13] VITALS: BP 148/77; PULSE 96; RESP 22; TEMP 36.2; O2SAT 100; BMI 47.4
--- NOTE | 2025-06-20 22:37 | EDS_ITS ---
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 She denies having any urinary retention loss of bowel or bladder control or saddle anesthesia. [facility] Medical History Ulcer of gingiva Depression Anxiety Diabetes Anemia Back pain Gastric reflux Non-smoker CPAP (continuous positive airway pressure) dependence Hypertension Chest pain hypertension History of EKG delivery delivered depression Lab test positive for detection of COVID-19 virus LUIS (obstructive sleep apnea) Infertility Panic attacks Bipolar 1 disorder Asthma Hemorrhoids Home Medications ?Medication ?Instructions ?Recorded ?Last Taken ?Type levonorgestrel (Mirena) 1 device intrauterine ONCE 0 08/20/24 Unknown History venlafaxine 150 mg 150 mg PO QAM #90 caps 01/23 Unknown Rx capsule,extended release 24 hr propranolol 10 mg tablet 10 mg PO TID PRN anxiety #90 tabs 02/22/25 Unknown Rx trazodone 100 mg tablet 100 mg PO QHS PRN insomnia # 90 tabs 02/22/25 Unknown Rx tirzepatide 7.5 mg/0.5 mL 7.5 mg subcut QWEEK 05/28/25 Unknown History subcutaneous pen injector (Mounjaro) naproxen 500 mg tablet 500 mg PO BID PRN pain #14 t abs 06/20/25 Unknown Rx orphenadrine citrate 100 mg 100 mg PO BID PRN muscle p ain #14 06/20/25 Unknown Rx tablet,extended release tabs Allergy/AdvReac Type Severity Reaction Status Date / Time No Known Allergies Allergy Verified 06/20/25 22:15 Family History Father Brain tumor (benign) Depression CAD (coronary artery disease) Grandmother Hypertension Hyperlipemia Depression Mother Allergies Grandfather Asthma COPD (chronic obstructive pulmonary disease) Surgical History S/P laparoscopic cholecystectomy H/O oral surgery Hx of section Social History household members: family current occupational status: employed 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 Smoking Status: Former smoker second hand exposure: No alcohol intake: never substance use type: does not use caffeine: Yes what type of physical activity do you participate in: aerobics frequency: 3-4 times per week seatbelt use: always do you feel safe at home: Yes ROS ROS ED ROS Narrative Pertinent Positives: Right low back pain after injury at work Pertinent Negatives: Saddle anesthesia numbness tingling weakness strength deficits urinary retention loss of bowel or bladder control unexplained weight loss or history of IV drug use The remainder of review of systems negative unless otherwise stated in the HPI above. Systems reviewed including constitutional, psychiatric, cardiovascular, respiratory, integument, HENT, gastrointestinal. EXAM Physical Exam Narrative Exam Narrative: Patient is afebrile hemodynamically stable does not appear toxic or in distress she has no overlying skin changes such as rash or cellulitic appearance or hemorrhagic bullae or vesicular lesions. Nontender cervical and thoracic and lumbar spine no step-off deformities she is particularly point tender in the right lumbar paraspinal musculature. She is still able to complete straight leg raises and has full strength in bilateral lower extremities with normal sensation and intact pulses and appears to be neurologically intact. Const Vital Signs: 06/20/25 22:13 Temperature 97.2 F L Temperature Source Temporal Pulse Rate 96 Respiratory Rate 22 H Blood Pressure 148/77 H Blood Pressure Mean 100 Pulse Ox 100 Oxygen Delivery Method Room Air MDM MDM MDM Narrative Medical decision making narrative: Nursing notes, triage notes, available previous documentation, and vital signs were reviewed. Any discrepancies noted were addressed. Differential Diagnoses: Does not seem to be consistent with a spinal epidural abscess or cauda equina or conus medullary syndrome or rash or necrotizing process or cellulitis lower suspicion for herniated disc higher suspicion for lumbar muscular strain Interventions: Toradol and Valium Labs Reviewed: Not clinically indicated Imaging Reviewed: We did discuss the use of a CT of the lumbar spine it was offered to her but ultimately patient declined which given where her pain and injury appears to be it is reasonable to decline Previous Documentation Reviewed: None available or applicable at this time. ED Course: Patient presenting with injury as stated above seems to have a right lumbar spine muscle strain she states that she is working on getting somebody to drive her so that way I can provide her with a muscle relaxer here she will go home with a prescription for muscle relaxer as well she was advised not to drive or operate heavy machinery or climb heights while on the muscle relaxer. She was given strict return precautions and follow-up recommendations I do believe she will be stable for discharge after reassessment. 2321: On reevaluation patient is up moving around unfortunately there is not somebody on-call to do the drug testing that her workplace requires so she will have to get this done tomorrow. Patient stable for discharge home This note was made utilizing voice recognition software. All attempts were made to correct spelling or other errors prior to note completion. However, due to the fast-paced nature of emergency medicine, some errors may still be present. Discharge Plan Triage Chief Complaint: Back ED Provider: Milagro Hall Dx/Rx/DC Orders Clinical Impression: Strain of lumbar paraspinal muscle, Lower back injury, Work related injury Instructions: Back Safety for Healthcare Workers Prescriptions: New orphenadrine citrate 100 mg tablet extended release 100 mg PO BID PRN (Reason: muscle pain) Qty: 14 0RF naproxen 500 mg tablet 500 mg PO BID PRN (Reason: pain) Qty: 14 0RF No Action Mirena 21 mcg/24hr (up to 8 yrs) 52 mg intrauterine device 1 device intrauterine ONCE Rx Instructions: as a single dose venlafaxine 150 mg capsule,extended release 24hr 150 mg PO QAM Qty: 90 1RF propranolol 10 mg tablet 10 mg PO TID PRN (Reason: anxiety) Qty: 90 2RF trazodone 100 mg tablet 100 mg PO QHS PRN (Reason: insomnia) Qty: 90 1RF Mounjaro 7.5 mg/0.5 mL pen injector 7.5 mg subcut QWEEK Primary Care Provider: Hannah López Referrals: Hannah López NP-C [Primary Care Provider, Family Practice] Activity Restrictions/Additional Instructions: Follow-up with your primary care doctor. Please return if you are having loss of bowel or bladder control or unable to pee or numbness or tingling around your groin or overall worsening symptoms. Please do not drive or operate heavy machinery or climb heights while on the muscle relaxer Print Language: Vietnamese Disposition Disposition: Home, Self Care
[2025-06-20] MEDS: Ketorolac 30 MG/ML Syringe IM (22:40)
--- OUTSIDE RECORDS SUMMARY | 2025-06-20 22:49 | XMS RPT_ITS | CCD ---
Author Organization [facility] Care Team Providers Care Director Funeral Name Role Phone Nisa NIChristine Rocío Unavailable Austin Castro Primary Care Provider Alecia Rogers Primary Care Provider [phone] BELLO FISH Attending Unavailab le CLARITAEDCOURTNEY TRUJILLONAH E Primary Care Unavailable BELLO FISH Attending Unavailab le NO, PHYSICIAN Primary Care Unavailable STACEY SHUKLA Attending Unavailable CLARITAEDEL, ALECIA E Primary Care Unavailable Austin Castro MD Primary Care Provider Alecia Rogers MD Primary Care Provider Alecia Rogers MD Primary Care Provider COURTNEY ROGERSNAH Herb Primary Care Unavailable NICOLASA DICKENS Attending Unavailable MIEDEL, ALECIA E Primary Care Unavailable TIARA SAXENA Attending Unavailable CLARITAEDEL, ALECIA E Primary Care Unavailable TIARA SAXENA Attending Unavailable NIKKI OLIVA Primary Care Unavailable TIARA SAXENA Referring Unavailable MUSTAPHAHOF, NIKKI Primary Care Unavailable MIEDEL, ALECIA E Primary Care Unavailable MIEDEL, ALECIA E Primary Care Unavailable VAISHALI JUDGE Referring Unavailable MIEDEL, ALECIA E Primary Care Unavailable MIEDEL, ALECIA E Primary Care Unavailable MIEDEL, ALECIA E Primary Care Unavailable MIEDEL, ALECIA E Primary Care Unavailable MIEDEL, ALECIA E Primary Care Unavailable MIEDEL, ALECIA E Primary Care Unavailable Laly Pham Referring Unavailable Miedel, Alecia Primary Care Unavailable Laly Pham Attending Unavailable Laly Pham Attending Unavailable Laly Pham Referring Unavailable Miedel, Alecia Primary Care Unavailable Erick Camacho Attending Unavailable Miedel, Alecia Primary Care Unavailable Jordyn Carrillo Attending Unavailable Miedel, Alecia Primary Care Unavailable Miedel, Alecia Referring Unavailable Miedel, Alecia Primary Care Unavailable Spencer Dawson Attending Unavailable Miedel, Alecia Primary Care Unavailable Miedel, Alecia Referring Unavailable Brea ARREOLA, Amada Attending Unavailable Gema Estrada Attending Unavailable Miedel, Alecia Referring Unavailable Miedel, Alecia Primary Care Unavailable Trinh Saravia Attending Unavailable Miedel, Alecia Primary Care Unavailable Miedel, Alecia Referring Unavailable Gema Estrada Referring Unavailable Gema Estrada Attending Unavailable Miedel, Alecia Primary Care Unavailable Trinh Saravia Attending Unavailable Miedel, Alecia Primary Care Unavailable Miedel, Alecia Referring Unavailable Miedel, Alecia Primary Care Unavailable Reggie Greer Attending Unavailable Miedel, Alecia Referring Unavailable Jordyn Carrillo Attending Unavailable Miedel, Alecia Primary Care Unavailable Miedel, Alecia Referring Unavailable Trinh Saravia Attending Unavailable Miedel, Alecia Primary Care Unavailable Miedel, Alecia Referring Unavailable Jordyn Carrillo Attending Unavailable Miedel, Alecia Primary Care Unavailable Jordyn Carrillo Referring Unavailable Miedel, Alecia Primary Care Unavailable Lou Stover Attending Unavailable Beam, Zebulun Referring Unavailable Miedel, Alecia Primary Care Unavailable Rosalee, Zebulun Attending Unavailable Gema Estrada Referring Unavailable Gema Estrada Attending Unavailable Miedel, Alecia Primary Care Unavailable Gema Estrada Attending Unavailable Miedel, Alecia Referring Unavailable Miedel, Alecia Primary Care Unavailable Miedel, Alecia Referring Unavailable Miedel, Alecia Primary Care Unavailable Laly Pham Attending Unavailable Trinh Saravia Attending Unavailable Miedel, Alecia Primary Care Unavailable Miedel, Alecia Referring Unavailable Miedel, Alecia Primary Care Unavailable Laly Pham Attending Unavailable Miedel, Alecia Referring Unavailable Gema Estrada Attending Unavailable Miedel, Alecia Primary Care Unavailable Miedel, Alecia Referring Unavailable Trinh Saravia Attending Unavailable Miedel, Alecia Primary Care Unavailable Miedel, Alecia Primary Care Unavailable Miedel, Alecia Referring Unavailable Gabriela Rachel Attending Unavailabl e Miedel, Alecia Primary Care Unavailable Miedel, Alecia Referring Unavailable Miedel, Alecia Attending Unavailable Jordyn Carrillo Attending Unavailable Jordyn Carrillo Referring Unavailable Miedel, Alecia Primary Care Unavailable Miedel, Alecia Primary Care Unavailable Laly Pham Attending Unavailable Miedel, Alecia Primary Care Unavailable Brea ARREOLA, Amada Attending Unavailable Miedel, Alecia Primary Care Unavailable Laly Pham Referring Unavailable Laly Pham Attending Unavailable Gema Estrada Referring Unavailable Gema Estrada Attending Unavailable Miedel, Aelcia Primary Care Unavailable Miedel, Alecia Primary Care Unavailable Gabriela Rachel Attending UnavailGabriela Barlow Referring UnavailJordyn Aceves Attending Unavailable Jordyn Carrillo Referring Unavailable Miedel, Alecia Primary Care Unavailable Trinh Saravia Attending Unavailable Miedel, Alecia Primary Care Unavailable Miedel, Alecia Primary Care Unavailable Miedel, Alecia Referring Unavailable Trinh Saravia Attending Unavailable Miedel, Alecia Primary Care Unavailable Isak Mcnair Attending Unavailable Miedel, Alecia Primary Care Unavailable Miedel, Alecia Referring Unavailable Gabriela Rachel Attending Unavailabl e Miedel, Alecia Primary Care Unavailable Miedel, Alecia Referring Unavailable Gabriela Rachel Attending UnavailGema Steve Referring Unavailable Gema Estrada Attending Unavailable Nvedel, Alecia Primary Care Unavailable Medications Current Medications Medication Drug Class(es) [...] on above: Take 1 tablet by joyce twice daily for 10 days. amoxicillin 875 [...] oral solution (8 sources) alpha-Adrenergic Agonist, Uncompetitive K-wxfjtr-L-aspartate Receptor Antagonist, Sigma-1 Agonist Start: 08-03-2024 End: [...] Comment on above: Take 1 tablet by [facility] once daily. Ethinyl Estradiol / norgestimate (16 [...] 40 mg by mouth once daily. Active Ubdmhijw-Wo-Xaq-Fe- FA ( VITAMIN) tab (18 sources) take 1 tablet by mouth once Ligatiik-Jt-Vdq-F e-FA ( VITAMIN) tab Take 1 tablet by mouth. Active take 1 tablet by mouth once Pren atal Qweykccp-Qr-Uyz-Fe-FA ( VITAMIN) tab Take 1 tablet by [...] 27 MG TABS as directed FERROUS SULFATE [id number] Stacey Whitney Phillips PA-C ferrous sulfate (IRON ORAL) Take by mouth. Active ferrous sulfate (IRON ORAL) Take by mouth. 0 Active Comment on above: Take by mouth. FLUoxetine 10 mg oral capsule (1 source) Serotonin Reuptake Inhibitor Start: 7 PROZAC 10 MG CAPS as directed FLUOXETINE HCL [id number] Stacey Whitney Phillips PA-C fluticasone propionate 0.05 mg/actuat metered [...] anxiety disorder; Translations: [Generalized anxiety disorder] Onset: 02-23-2025 Chronic Genitourinary symptoms and ill-defined conditions (20 sources) Bacteriuria; Translations: [Bacteriuria] Onset: 02-24-2021 02-24-2021 Episodic Immunizations and screening for infectious disease (5 sources) Contact with and (suspected) exposure to infections with a predominantly sexual mode of transmission; Translations: [Encounter for screening for infections with a predominantly sexual mode of transmission] Onset: 10-10-2024 Episodic Inflammatory diseases of female pelvic organs (1 source) Acute vaginitis; Translations: [Acute vaginitis] Onset: 05-14-2025 Episodic Menstrual disorders (1 source) Amenorrhea, unspecified; Translations: [Amenorrhea, unspecified] Onset: 03-06-2025 Chronic Mood disorders (1 source) Major depressive disorder, recurrent, moderate; Translations: [Major depressive disorder, recurrent, moderate] Onset: 02-23-2025 Chronic Other complications of (18 sources) Obesity; Translations: [Obesity complicating , unspecified trimester] Onset: 08-31-2016 02-12-2021 Chronic Other diseases of veins and lymphatics (2 sources) Venous insufficiency (chronic) (peripheral); Translations: [Venous insufficiency (chronic) (peripheral)] Onset: 03-12-2024 Episodic Other female genital disorders (2 sources) Other specified noninflammatory disorders of vagina; Translations: [Vaginal irritation] Onset: 05-24-2025 Episodic Other injuries and conditions due to [...] disorders of the skin] 12-09-2024 Episodic Other upper respiratory infections (2 sources) Bacterial sinusitis; Translations: [Chronic sinusitis, unspecified] 05-16-2024 Chronic Residual codes; unclassified (2 sources) Localized edema; Translations: [Localized edema] Onset: 03-12-2024 Episodic Residual codes; unclassified (1 source) Viral syndrome; Translations: [Other general symptoms and signs] 09-06-2024 Episodic Unclassified (1 source) Acute cough; Translations: [Acute cough] Onset: 06-06-2024 Unclassified (1 source) Pelvic and perineal pain unspecified side; Translations: [Pelvic and perineal pain unspecified side] Onset: 05-29-2025 Unclassified (1 source) Binge eating disorder, unspecified; Translations: [Binge eating disorder, unspecified] Onset: 02-23-2025 Urinary tract infections (1 source) Urinary tract infection, site not specified; Translations: [Urinary tract infection, site not specified] Onset: 04-09-2025 Episodic Viral infection (1 source) Viral disease; Translations: [Viral infection, unspecified] Episodic Past or Other Problems Problem Classification Problem Date Documented Da te Episodic/Chronic Cardiac dysrhythmias (1 source) Palpitations; Translations: [Palpitations] Onset: 07-05-2024 Episodic Complication of device; implant or graft (1 source) Displacement of intrauterine contraceptive device, initial encounter; Translations: [Displacement of intrauterine contraceptive device, initial encounter] Onset: 10-12-2024 Episodic Contraceptive and procreative management (20 sources) Patient encounter status; Translations: [Encounter for other general counseling and advice on contraception] Onset: 09-11-2013 Resolved: 09-28-2016 09-28-2016 Episodic Heart valve disorders (2 sources) Cardiac murmur, unspecified; Translations: [Cardiac murmur, unspecified] Onset: 12-19-2024 Episodic Nausea and vomiting (1 source) Nausea; Translations: [Nausea] Onset: 06-19-2017 06-19-2017 Episodic Nonspecific chest pain (1 source) Other chest pain; Translations: [Other chest pain] Onset: 12-21-2024 Episodic Other complications of (20 sources) ; [...] Onset: 10-21-2016 Resolved: 04-27-2017 04-27-2017 Episodic Other gastrointestinal disorders (18 sources) Swallowing painful; Translations: [Dysphagia, unspecified] Onset: 02-03-2014 02-03-2014 Episodic Other screening for suspected conditions (not mental disorders or infectious disease) (4 sources) Encounter for screening for lipoid disorders; Translations: [Encounter for screening for diabetes mellitus] Onset: 08-06-2024 Episodic Other skin disorders (1 source) Other hypertrophic disorders of the skin; Translations: [Cutaneous skin tags] Onset: 12-09-2024 Episodic Other upper respiratory disease (1 source) Pain in throat Onset: 09-18-2024 Episodic Other upper respiratory infections (20 sources) [...] Test Name Value Interpretation Reference Range Facility Gram Stainon 05-28-2025 GS Reason for Exam: vaginal irritation Gram Stain 4+ Gram positive rods 1+ Epithelial cells No Gram negative diplococci Score = 0 Interpretation: 0-3 Normal, 4-6 Intermediate, 7-10 Positive BV Normal [facility] Comment on above: Performed By: #### L 100.0100, L500.2500, L501.4021 #### [facility] [address] [place], [place], [id number] Fishing Worker Office Visit Reporton 05-28-2025 Fishing Worker Office Visit Report [facility] [address], [address] [place] [address] OFFICE VISIT Date of Service: 05/28/25 MR#: [id number] Acct: [id number] Name: CEDRIC HOPE Rep #: [id number] : 1995 Provider: JANEL hicks Age/Sex: 29/F Location: [facility] Status: Signed Intake Vital Signs 05/18/25 17:38 05/28/25 12:58 05/28/25 13:05 Height 5 ft 4 in 5 ft 4 in 5 ft 4 in Weight: 280 lb 8 oz BMI 48.1 BP 120/82 H Intake Visit Reasons: vaginal pain Benefits Representative Required: No Is patient in pain?: No Allergies No Known Allergies Allergy (Verified 05/28/25 12:57) Medications ???Medication ???Instructions ???Recorded ???Confirmed ???Type pantoprazole 40 mg tablet,delayed 40 mg PO DAILY #30 tabs 02/02/24 05/28/25 Rx release levonorgestrel (Mirena) 1 device intrauterine ONCE 08/20/ 5 05/28/25 History venlafaxine 150 mg 150 mg PO QAM #90 caps 01/23/25 Rx capsule,extended release 24 hr propranolol 10 mg tablet 10 mg PO TID PRN anxiety #90 tabs 02/22/25 05/28/25 Rx trazodone 100 mg tablet 100 mg PO QHS PRN insomnia #90 tab s 02/22/25 05/28/25 Rx tirzepatide 7.5 mg/0.5 mL 7.5 mg subcut QWEEK 05/28/2505/28 History subcutaneous pen injector (Mounjaro) Is last menstrual period known: No Post menopausal: No Patient : No : No Control Method: Mirena [facility] Medical History Ulcer of gingiva Depression Anxiety [...] family current occupational status: employed 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 She has had new partner. She has IUD for contraception. Seen recently in ED for these symptoms and had normal CT of pelvis. She took doxy and fluconazole at that time. Also treated for BV 2 weeks ago History 2 Elective abortions Hx Para 2 [...] Jelani 39 live - full term Male [facility] Ma rcanthony Delivery Date: 04/12/17 Last Updated by: Christine Ascencio AoD- failed induction; thick meconium- initially clear thick MSF by delivery Delivery Date: 10/01/21 Last Updated by: Leslie Gibbons RLTCS GDMA2 ROS Const Constitutional: Reports system reviewed and no additional complaints, except as documented Eyes Eyes: Reports system reviewed and no additional complaints, except as documented GI GI: Denies abdominal pain or change in bowel habits : Reports as per HPI Exam Const General: cooperative and no acute distress Orientation: oriented x3 General: bladder normal to palpation External Female Exam: normal external appearance and normal appearance of the urethra Urethra: normal appearance of the urethra Speculum Exam - Vagina: normal appearance of the vagina, normal vaginal discharge, no lesions and nontender Speculum Exam - Cervix: normal appearance of the cervix Bimanual Exam- Vagina Uterus: normal bimanual exam, uterine size normal, bladder normal to palpation, uterine shape normal, uterine mobility normal and non-tender Bimanual Ex (more content not included)... Normal [facility] BACTERIAL VAGINOSIS NAATon 1 07-24-2024 Lactobacillus crispatus+gasseri+ jensenii + Gardnerella vaginalis + Atopobium vaginae rRNA VINOD+probe Ql (Vag fld) Not detected Normal Not detected [facility] Comment on above: Order Comment: Speci men Type: SWAB Ordering Facility: [facility] Address: [address] [place] [address] Performed By: #### B LEIDY, [id number] #### [facility] CLIA [id number] [address] [place] [address] [place] [address] [place] C. trachomatis+N. gonorrhoea e DNA VINOD+probe Ql (Unsp spec)on 05-24-2025 C. trachomatis rRNA VINOD+probe Ql (Unsp spec) Not detected Normal Not detected [facility] Comment on above: Order Comment: Speci men Type: SWAB Ordering Facility: [facility] Address: [address] [place] [address] Performed By: #### B VAMP, [id number] #### [facility] CLIA [id number] [address] [place] [address] [place] N. gonorrhoeae rRNA VINOD+probe Ql (Unsp spec) Not detected Normal Not detected [facility] Comment on above: Order Comment: Speci men Type: SWAB Ordering Facility: [facility] Address: [address] [place] [address] Performed By: #### B VAMP, [id number] #### [facility] CLIA [id number] [address] [place] [address] [place] CHRISSIE/TRICHOMONAS NAATon 1 07-24-2024 C. glabrata RNA VINOD+probe Ql (Vag fld) Not detected Normal Not detected [facility] Comment on above: Order Comment: Speci men Type: SWAB Ordering Facility: [facility] Address: [address] [place] [address] Performed By: #### C VTV #### [facility] CLIA [id number] [address] [place] [address] [place] Chrissie sp DNA VINOD+probe Ql (Vag fld) Not detected Normal Not detected [facility] Comment on above: Order Comment: Speci men Type: SWAB Ordering Facility: [facility] Address: [address] [place] [address] Result Comment: The Chrissie species group target includes C. albicans, C. tropicalis, C. parapsilosis, and C. dubliniensis. Performed By: #### C VTV #### [facility] CLIA [id number] [address] [place] [address] [place] T. vaginalis DNA VINOD+probe Ql (Unsp spec) Not detected Normal Not detected [facility] Comment on above: Order Comment: Speci men Type: SWAB Ordering Facility: [facility] Address: [address] [place] [address] Performed By: #### C VTV #### [facility] MARYIA [id number] [address] [place] [address] [place] CNOVon 05-24-2025 CNOV Office Visit ([facility]) CEDRIC HOPE ([id number]) 1995 F Date Time Provider Department 05/24/25 12:00 PM TIARA SAXENA WOVAMSI During your visit today, we recorded the following information about you: Temperature Pulse Respiration Blood pressure 98.7 degrees 76/minute 20/minute 128/78 Weight Last Period 129 kg 05/16/25 Tiara Saxena APRN.PLANE CAPTAIN 05/24/2025 12:58 PM Signed [facility] Subjective Cedric Mejia Jayy is a 29 year old female. Patient presents with: STD: States she is having new sx since last being see, throbbing, pain, irritation, odor, x 4 days States 2 weeks since last partner HPI The patient is a 29-year-old female presenting with vaginal discomfort and odor. She is accompanied by her child. The patient reports 4 days of throbbing discomfort, slight irritation, and a slight odor from the vagina. She describes a sensation of a hot crotch and reports lower back ache and cramping. She denies dysuria and UTI symptoms. She requests STI testing and is amenable to a full exam. She has a history of bladder issues and was recently seen in the ER for pain. She was told her bladder wall is mildly thickened and has a urology appointment scheduled in June. Review of Systems Genitourinary: (+) pelvic pain, (+) pelvic cramping, (+) genital throbbing, (+) genital irritation, (+) genital warmth, (+) genital malodor, (-) dysuria Musculoskeletal: (+) lower back pain PAST MEDICAL HISTORY Diagnosis Date Chlamydia 2013 and 2016 Depression Infertility, female Panic attacks depression PAST SURGICAL HISTORY Procedure Laterality Date DELIVERY ONLY 04/12/2017 PAST SURGICAL HISTORY OF oral (gum) surgery ALLERGIES Patient has no known allergies. MEDICATIONS tirzepatide 7.5 mg/0.3 mL syringe Inject 7.5 mg subcutaneously one time a week. levonorgestrel (MIRENA) 21 mcg/24hr (up to 8 yrs) 52 mg IUD 1 each by INTRAUTERINE route one time only. venlafaxine ER (EFFEXOR XR) 150 mg 24 [...] needed. (Patient not taking: Reported on 09/18/2024) metoprolol tartrate, short acting, (LOPRESSOR) 25 mg tablet TAKE 1/2 TABLET BY MOUTH 2 TIMES A DAY (Patient not taking: Reported on 09/18/2024) omeprazole (PRILOSEC) 20 mg capsule Take 20 [...] mouth. (Patient not taking: Reported on 05/11/2022) Bjnbewyh-Vv-Tol-Fe-FA ( VITAMIN) tab Take 1 tablet by [...] Disease Paternal Grandfather No Known Problems Daughter SOCIAL HISTORY[1] Objective BP 128/78 Pulse 76 Temp 37.1 ?C (98.7 ?F) Resp 20 Wt 129 kg (284 lb 6.3 oz) LMP 05/16/2025 (Within Days) SpO2 100% BMI 50.38 kg/m? Physical Exam Constitutional: General: She is not in acute distress. Appearance: Normal appearance. She is normal weight. She is not ill-appearing or toxic-appearing. Cardiovascular: Rate and Rhythm: Normal rate. Pulmonary: Effort: Pulmonary effort is normal. Abdominal: Tenderness: There is no right CVA tenderness or left CVA tenderness. Genitourinary: Comments: Deferred, attempted unable to complete with patients young son Patient agreeable to self swab Neurological: Mental Status: She is alert. { 1. Screening for STD (sexu (more content not included)... Normal [facility] HBV surface Ag Ser Qlon 11-0 HBV surface Ag Ql (S) Negative Normal Negative [facility] Comment on above: Order Comment: Speci men Type: SWAB Ordering Facility: [facility] Address: [address] [place] [address] Performed By: #### B LEIDY, [id number] #### [facility] CLIA [id number] [address] [place] [address] [place] [address] [place] HCV Ab Ser Qlon 05-24-2025 HCV Ab Ql (S) Negative Normal Negative [facility] Comment on above: Order Comment: Speci men Type: SWAB Ordering Facility: [facility] Address: [address] [place] [address] Result Comment: The result suggests no evidence of infection with Hepatitis C virus. Should recent infection be suspected, repeat testing may be considered 4-6 weeks after this draw. Performed By: #### C VTV #### [facility] CLIA [id number] [address] [place] [address] [place] HIV 1+2 Ab IA Qlon 5 HIV 1 and 2 Ab IA.rapid Nom (S/P/Bld) Normal [facility] Comment on above: Order Comment: Speci men Type: SWAB Ordering Facility: [facility] Address: [address] [place] [address] Result Comment: Test not indicated. Performed By: #### B VAMP, [id number] #### [facility] CLIA [id number] [address] [place] [address] [place] HIV 1+2 Ab+HIV1 p24 Ag IA Ql Non-Reactive Normal Nonreactive [facility] Comment on above: Order Comment: Speci men Type: SWAB Ordering Facility: [facility] Address: [address] [place] [address] Performed By: #### B VAMP, [id number] #### [facility] CLIA [id number] [address] [place] [address] [place] HIV immunoassay testing algorithm interpretation (S/P/Bld) [Interp] Normal [facility] Comment on above: Order Comment: Speci men Type: SWAB Ordering Facility: [facility] Address: [address] [place] [address] Result Comment: No e vidence of HIV-1 or HIV-2 infection. Should recent infection be suspected, repeat testing may be considered 2-3 weeks after this draw. [place] Rev. Code 3701.243(E): This information has been disclosed to you from confidential records protected from disclosure by state law. You shall make no further disclosure of this information without the specific, written, and informed release of the individual to whom it pertains or as otherwise permitted by state law. A general authorization for the release of medical or other information is not sufficient for the purpose of the release of HIV test results or diagnoses. Performed By: #### Severino VAMP, [id number] #### [facility] CLIA [id number] [address] [place] [address] [place] Reagin and Treponema pallidu m IgG and IgM [Interp]on 05-24-2025 T. pallidum IgG+IgM IA Ql (S) Non-Reactive Normal Nonreactive [facility] Comment on above: Order Comment: Speci men Type: SWAB Ordering Facility: [facility] Address: [address] [place] [address] Performed By: #### Severino VAMP, [id number] #### [facility] [facility] CLIA [id number] [address] [place] [address] [place] Reagin+T pallidum IgG+IgM Se rPl-Impon 05-24-2025 Reagin and Treponema pallidum IgG and IgM [Interp] Cannot exclude recent Treponemal infection if specimen collected within 7-10 days after appearance of suspect lesions or 2-3 weeks after an exposure. Clinical correlation is required. Normal [facility] Comment on above: Order Comment: Speci men Type: SWAB Ordering Facility: [facility] Address: [address] [place] [address] Performed By: #### Severino VAMP, 57103-6 #### [facility] CLIA [id number] [address] [place] [address] [place] Abdomen/Pelvis without Conto n 05-18-2025 Abdomen/Pelvis without Cont [facility] Imaging Services [address] [place] [address] Abdomen/Pelvis without Cont MR#: [id number] Acct: [id number] Name: CEDRIC HOPE Rep #: [id number] : 1995 F 29 From: Catina Staples MD PCP: Dr. Alecia Rogers MD Status: REG ER Study: Abdomen/Pelvis without Cont Date of Exam: 08/11 Exam# [id number] Ordering Dr: Lou Stover DO PROCEDURE: ABDOMEN/PELVIS WITHOUT CONT 05/18/2025 REASON FOR EXAM: LOWER PELVIC PAIN TECHNIQUE: Procedure Code: CTABDPEL Modality: CT Procedure: ABDOMEN/PELVIS WITHOUT CONT Noncontrast technique limits evaluation of the abdominal and pelvic viscera. Coronal and Sagittal reconstruction series were provided. One or more dose reduction techniques were used (e.g., Automated exposure control, adjustment of the mA and/or kV according to patient size, use of iterative reconstruction technique). RADIATION DOSE SUMMARY: CTDlvol: 24.1 mGy DLP: 1300 mGycm COMPARISON: None. FINDINGS: LUNG BASES: No basilar airspace consolidation or pleural effusion. LIVER: Enlarged measuring 18.5 cm in length. Diffuse decrease in parenchymal density. GALLBLADDER: Not visualized, query prior cholecystectomy. BILE DUCTS: No ductal dilation. PANCREAS: Unremarkable. SPLEEN: Unremarkable. ADRENAL GLANDS: Unremarkable. KIDNEYS/URETERS Unremarkable. No renal, ureteral or bladder calculi. No hydronephrosis or hydroureter. STOMACH AND BOWEL: No obstruction or perforation. No wall thickening. No CT evidence of colitis or acute diverticulitis. APPENDIX: Normal-appearing appendix. No CT evidence for appendicitis. RETRO/PERITONEUM: No free fluid. No free air. LYMPH NODES: Multiple small mesenteric and ileocecal lymph nodes. PELVIC ORGANS: Incomplete urinary bladder distention with mild diffuse wall thickening. Unremarkable ovaries and uterus. Well-positioned IUD within the endometrial cavity. VASCULATURE: No aortic aneurysm. ABDOMINAL WALL AND SOFT TISSUES: Unremarkable. BONES: No fracture or suspicious osseous abnormality. CT/Abdomen/Pelvis without Cont IMPRESSION: 1. No urolithiasis or signs of urinary tract obstruction. 2. Mildly thickened urinary bladder, possibly due to under-distention or cystitis. 3. Hepatomegaly with diffuse hepatic steatosis. Reading Location: [facility] CC: Dr. Alecia Rogers MD; Dr. Lou Stover DO Print Journalist: Signed Normal [facility] CBC W/Diff, Automatedon Absolute Lymph 2.11 X10 3/uL Normal 0.83-4.51 [facility] Comment on above: Performed By: #### L 100.0100, L500.2500, L501.4021 #### [facility] [address] [place], [address] Absolute Neut 6.0 X10 3/uL Normal 2.0-7.7 [facility] Comment on above: Performed By: #### L 100.0100, L500.2500, L501.4021 #### [facility] [address] [place], [address] Basophils/100 WBC (Bld) 0.5 % Normal 0-1 [facility] Comment on above: Performed By: #### L 100.0100, L500.2500, L501.4021 #### [facility] [address] [place], [address] Eosinophils/100 WBC (Bld) 1.3 % Normal 0-5 [facility] Comment on above: Performed By: #### L 100.0100, L500.2500, L501.4021 #### [facility] [address] [place], [address] Erythrocyte distribution width (RBC) [Ratio] 15.4 % High 11.6-14.6 [facility] Comment on above: Performed By: #### L 100.0100, L500.2500, L501.4021 #### [facility] [address] [place], [address] Hematocrit (Bld) [Volume fraction] 37.3 % Normal 37-47 [facility] Comment on above: Performed By: #### L 100.0100, L500.2500, L501.4021 #### [facility] [address] [place], [address] Hemoglobin (Bld) [Mass/Vol] 12.1 g/dL Normal 12.0-15.0 [facility] Comment on above: Performed By: #### L 100.0100, L500.2500, L501.4021 #### [facility] [address] [place], [address] IG% 0.200 Normal 0.0-0.9 [facility] Comment on above: Result Comment: IG% - Immature Granulocytes (promyelocytes, myelocytes and metamyelocytes) > 1% indicates that a LEFT SHIFT is Present. Performed By: #### L 100.0100, L500.2500, L501.4021 #### [facility] [address] [place], [address] Lymphocytes/100 WBC (Bld) 24.0 % Normal 19-41 [facility] Comment on above: Performed By: #### L 100.0100, L500.2500, L501.4021 #### [facility] [address] [place], [address] MCH (RBC) [Entitic mass] 25.3 pg Low 27.0-32.0 [facility] Comment on above: Performed By: #### L 100.0100, L500.2500, L501.4021 #### [facility] [address] [place], [address] MCHC (RBC) [Mass/Vol] 32.4 g/dL Normal 32-36 [facility] Comment on above: Performed By: #### L 100.0100, L500.2500, L501.4021 #### [facility] [address] [place], [address] MCV (RBC) [Entitic vol] 78.0 fL Low 81-99 [facility] Comment on above: Performed By: #### L 100.0100, L500.2500, L501.4021 #### [facility] [address] [place], [address] Monocytes/100 WBC (Bld) 5.7 % Normal 0-10 [facility] Comment on above: Performed By: #### L 100.0100, L500.2500, L501.4021 #### [facility] [address] [place], [address] Neutrophils/100 WBC (Bld) 68.3 % Normal 47-70 [facility] Comment on above: Performed By: #### L 100.0100, L500.2500, L501.4021 #### [facility] [address] [place], [address] Nucleated RBC (Bld) [#/Vol] 0 10*3/uL Normal 0-5 [facility] Comment on above: Performed By: #### L 100.0100, L500.2500, L501.4021 #### [facility] [address] [place], [address] Platelet mean volume (Bld) [Entitic vol] 10.5 fL Normal 6.2-12.0 [facility] Comment on above: Performed By: #### L 100.0100, L500.2500, L501.4021 #### [facility] [address] [place], [address] Platelets (Bld) [#/Vol] 252 10*3/uL Normal 150-450 [facility] Comment on above: Performed By: #### L 100.0100, L500.2500, L501.4021 #### [facility] [address] [place], [address] RBC (Bld) [#/Vol] 4.78 10*6/uL Normal 4.2-5.4 [facility] Comment on above: Performed By: #### L 100.0100, L500.2500, L501.4021 #### [facility] [address] [place], [address] RDW SD 43.2 fl Normal 35.1-43.9 [facility] [facility] Comment on above: Performed By: #### L 100.0100, L500.2500, L501.4021 #### [facility] [address] [place], [address] WBC (Bld) [#/Vol] 8.8 10*3/uL Normal 4.4-11.0 [facility] Comment on above: Performed By: #### L 100.0100, L500.2500, L501.4021 #### [facility] [address] [place], [address] Emergency Department Summary on 05-18-2025 Emergency Department Summary [facility] Medical Records Department [address] [facility] [place] [address] Emergency Department Summary 05/18/25 MR#: [id number] Acct: [id number] Name: CEDRIC HOPE Rep #: [id number] : 1995 29 From: Lou Stover DO PCP: Dr. Alecia Rogers MD Status:DEP ER Location: ED HPI HPI - Female History of Present Illness Chief Complaint: Female C/O Detail of Chief Complaint: Lower pelvic pain Informant: patient Narrative Narrative: Patient presents with pelvic pain and small amount of vaginal bleeding. She developed some cramping last evening and then had intercourse and developed more pain. Denies any abnormal vaginal discharge. She has had no fever. She has an IUD that was placed 6 months ago. When she wipes she notices a small amount of blood. She has had no fever chills or sweats. Denies dysuria urgency or frequency. [facility] Medical History Ulcer of gingiva Depression Anxiety [...] 1 device intrauterine ONCE 5 Unknown History venlafaxine 150 mg 150 mg PO QAM #90 caps 01/23/25 Un known Rx capsule,extended release 24 hr propranolol 10 mg tablet 10 mg PO TID PRN anxiety #90 tabs 02/22/25 Unknown Rx trazodone 100 mg tablet 100 mg PO QHS PRN insomnia #90 tab s 02/22/25 Unknown Rx doxycycline monohydrate 100 mg 100 mg PO BID #20 CAPSULES 5 Unknown Rx capsule fluconazole 150 mg tablet 150 mg PO DAILY 1 dose #2 tabs 08/11 Unknown Rx Allergy/AdvReac Type Severity Reaction Status Date / Time No Known Allergies Allergy Verified 05/18/25 17:38 Family History Father Brain tumor (benign) Depression CAD (coronary artery disease) Grandmother Hypertension Hyperlipemia Depression Mother Allergies Grandfather Asthma COPD (chronic obstructive pulmonary disease) Surgical History S/P laparoscopic cholecystectomy H/O oral surgery Hx of section Social History household members: family current occupational status: employed 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 Smoking Status: Current some day smoker tobacco type: cigarettes second hand exposure: No alcohol intake: never substance use type: does not use caffeine: Yes what type of physical activity do you participate in: aerobics frequency: 3-4 times per week seatbelt use: always do you feel safe at home: Yes ROS ROS ED Review of Systems ROS Unobtainable: other Constitutional Constitutional ED: Reports lethargy; Denies chills, fever(s), sweats or weight loss Eyes Eyes: Denies blurry vision, change in vision or diplopia ENT ENT ED: Denies rhinorrhea or sore throat Cardiovascular Cardiovascular: Denies chest pain, orthopnea or racing heartbeat Respiratory/Chest Respiratory/Chest: Denies cough, dyspnea, dyspnea on exertion, orthopnea or sputum Gastrointestinal Gastrointestinal: Reports abdominal pain; Denies diarrhea, nausea or vomiting Genitourinary Genitourinary ED: Reports other Details: Vaginal bleeding ; Denies dysuria, hematuria or urinary frequency Musculoskeletal Musculoskeletal: Denies arthralgias, back pain, myalgias or neck pain Integumentary Denies abscess, Abrasions or rash Neurologic Neurologic: Denies headache(s) or weakness Psychiatric Psychiatric: Denies anxiety, depression or suicidal thoughts Endocrine Endocrinology: Denies polydipsia, polyphagia or polyuria Hematologic/Lymphatic Hematologic/Lymphatic: Denies easy bleeding, easy bruising or lymphadenopathy Allergic/Immunologic Allergic/Immunologic ED: Denies mouth swelling, tongue swelling or urticaria EXAM Physical Exam Const Vital Signs: 05/18/25 17:38 05/18/25 19:37 Temperature 96.9 F L Temperature Source Temporal Pulse Rate 85 74 Respiratory Rate 18 16 Blood Pressure 128/99 H 117/53 L Blood Pressure Mean 108 74 Pulse Ox 98 100 Oxygen Delivery Method Room Air Room Air Positive well nourished and well developed General Appearance ED: well developed and (more content not included)... Normal [facility] M8200.2203on 05-18-2025 M8200.2203 A FALSE NEGATIVE NEISSERIA GONORRHOEA RESULT MAY OCCUR IF A RARE GENETIC MUTATION HAS OCCURED. PLEASE ORDER A GC CULTURE IF YOU SUSPECT A FALSE NEGATIVE RESULT HAS BEEN REPORTED WITH [facility]. Chlamydia Trachomatis PCR NEGATIVE for Chlamydia trachomatis N. gonorrhoeae PCR Negative for N. gonorrhoeae Normal [facility] Comment on above: Performed By: #### M 8200.2203, L400.0001 ####[facility] [id number] [place], [place], [id number] ,Serum,hCG Quali.on 05-18-2025 HCG, SERUM QUAL Negative Normal [facility] Comment on above: Performed By: #### L 100.0100, L500.2500, L501.4021 #### [facility] [address] [place], [place], [address] Urinalysis, Completeon 05-18 BACTERIA RARE Normal None Seen [facility] Comment on above: Order Comment: CLEAN CATCH Performed By: #### M 8200.2203, L400.0001 ####[facility] [address] [place], [address] EPI,SQUAMOUS 0-5 SEEN Normal 5-10 [facility] Comment on above: Order Comment: CLEAN CATCH Performed By: #### M 8200.2203, L400.0001 ####[facility] [id number] [place], [address] RBC 0-5 SEEN Normal 0-5 [facility] Comment on above: Order Comment: CLEAN CATCH Performed By: #### M 8200.2203, L400.0001 ####[facility] [id number] [place], [address] WBC 0-5 SEEN Normal 0-5 [facility] Comment on above: Order Comment: CLEAN CATCH Performed By: #### M 8200.2203, L400.0001 ####[facility] [address] [place], [address] Mucus Ql (Urine sed) 0 SEEN Normal [facility] Comment on above: Order Comment: CLEAN CATCH Performed By: #### M 8200.2203, L400.0001 ####[facility] [address] [place], [address] CNPNon 05-15-2025 CNPN Telephone ([facility]) CEDRIC HOPE ([id number]) 1995 F Date Time Provider Department 05/15/25 TIARA SAXENA During your visit today, we recorded the following information about you: Tiara Saxena APRN.CNP 05/15/2025 4:27 PM Signed Vaginal swabs are negative, Urine culture still pending. Unable to leave voicemail, patient mailbox is full. Allergies As of Date: 05/15/2025 (No Known Allergies) Date Reviewed: 05/14/2025 Reviewed by: Mel Almanza MA - Fully Assessed Prescriptions as of 05/15/2025 - Brompheniramine-Pseudoe ph-DM (BROMFED DM) 2-30-10 mg/5 mL syrup Take 5 mL by mouth four times a day as needed. - venlafaxine ER (EFFEXOR XR) 150 mg 24 hr capsule Take 150 mg by mouth every morning. - traZODone (DESYREL) 50 mg tablet Take 50 mg by mouth at bedtime as needed. - pantoprazole DR (PROTONIX) 40 mg tablet Take 40 mg by mouth once daily. - metoprolol tartrate, short acting, (LOPRESSOR) 25 [...] sodium (COLACE ORAL) Take by mouth. - Zvxhzdqf-Dg-Jyo-Fe-FA ( VITAMIN) tab Take 1 tablet by mouth. - escitalopram oxalate (LEXAPRO) 20 mg tablet Take 1 tablet by mouth once daily. Problem List As Of Date 05/15/2025 Noted Resolved control counseling [Z30.09] 09/11/2013 09/28/2016 [...] GBS bacteriuria [R82.71] 02/24/2021 Encounter Status:Closed by TIARA SAXENA on 05/15/25 Normal [facility] BACTERIAL VAGINOSIS NAATon 1 Lactobacillus crispatus+gasseri+ jensenii + Gardnerella vaginalis + Atopobium vaginae rRNA VINOD+probe Ql (Vag fld) Not detected Normal Not detected [facility] Comment on above: Order Comment: Speci men Type: SWABOrdering Facility: [facility] Address: [address] [place] [address] Performed By: #### B VAMP ####[facility] [id number] [place] [address] [place] Bacteria Ur Culton Bacteria identified Cx Nom (U) ORGANISM ID: 1 <10,000 CFU/ml Normal urogenital hesham Normal [facility] Comment on above: Performed By: #### 6 30-4 ####[facility] [id number] [place] [address] [place] C. trachomatis+N. gonorrhoea e DNA VINOD+probe Ql (Unsp spec)on 05-14-2025 C. trachomatis rRNA VINOD+probe Ql (Unsp spec) Not detected Normal Not detected [facility] Comment on above: Order Comment: Speci men Type: SWAB Ordering Facility: [facility] Address: [address] [place] [address] Performed By: #### C VTV #### [facility] CLIA [id number] [address] [place] [address] [place] N. gonorrhoeae rRNA VINOD+probe Ql (Unsp spec) Not detected Normal Not detected [facility] Comment on above: Order Comment: Speci men Type: SWAB Ordering Facility: [facility] Address: [address] [place] [address] Performed By: #### C VTV #### [facility] CLIA [id number] [address] [place] [address] OF [facility] CNOVon 05-14-2025 CNOV Office Visit ([facility]) CEDRIC HOPE ([id number]) 1995 F Date Time Provider Department 05/14/25 5:15 PM TIARA SAXENA During your visit today, we recorded the following information about you: Temperature Pulse Respiration Blood pressure 98.2 degrees 88/minute 16/minute 124/70 Weight 129 kg Tiara Saxena APRN.PLANE CAPTAIN 05/14/2025 5:54 PM Signed [facility] Subjective Cedric Mejia Jayy is a 29 year old female. Patient presents with: STD UTI Vaginal Problem: BV UTI Vaginal Problem The patient is a 29-year-old female with PCOS and a Mirena IUD, presenting with postcoital vaginal bleeding, back pain, and intermittent numbness and cramping in her hands and feet. The patient reports vaginal bleeding after intercourse. She is uncertain if this represents a period or abnormal bleeding, as she had previously been amenorrheic with her Mirena IUD. She recently completed antibiotics for BV and notes a pattern of developing yeast infections and BV after antibiotics for sinus infections. She reports minimal vaginal discharge, with only occasional yellow-clear, gooey discharge. She denies pelvic pain, vaginal lesions, and urinary retention, but reports frequent urination. She has a history of chlamydia diagnosed in high school. 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 Last week, she strained her back catching a patient from falling. She denies numbness or tingling down her legs, but notes her foot has been going to sleep and she has been experiencing more charley horses. She also reports that her hands cramp up and go completely numb at night, feeling like her joints are locking up. She has been on a GLP-1 agonist at 5 mg for 3 weeks, with significant weight loss from 319 lbs to 284 lbs. She drinks only water and consumes 2 [employer] protein shakes daily (42g protein each), one in the morning and one at night, sometimes in addition to dinner. She takes a pre- and probiotic, vitamin D, and K12. She inquires about taking apple cider vinegar with her current supplements. Constitutional: (+) weight loss Gastrointestinal: (+) nausea Genitourinary: (+) vaginal bleeding, (+) urinary frequency, (-) pelvic pain, (-) vaginal discharge, (-) incomplete bladder emptying Musculoskeletal: (+) back pain, (+) leg cramps, (+) hand cramps Neurological: (+) lower extremity paresthesia, (+) upper extremity numbness PAST MEDICAL HISTORY Diagnosis Date Chlamydia 2013 [...] mouth. (Patient not taking: Reported on 05/11/2022) Fwrbgcix-Ii-Wfu-Fe-FA ( VITAMIN) tab Take 1 tablet by [...] Grandmother other (Depression) Maternal Grandmother Breast Cancer Ma (more content not included)... Normal [facility] Urine Cultureon 03-29-2025 URC #1, 2 Below infectio n level. Presumptive E. coli Ahmeek Count <1000 Mixed Gram Positive Organisms Mixed Gram Positive Organisms MIXC Mixed contaminants. Submit a new specimen if indicated. Normal [facility] Comment on above: Performed By: #### L 400.2010, M100.2200 ####[facility] [id number] [place], [address] Amylaseon 03-27-2025 PALOMA 38 U/L Normal 28-100 [facility] Comment on above: Performed By: #### L 100.0100, L500.2500, L501.4021 #### [facility] [address] [place], [address] CBC W/Diff, Automatedon 03-18 0-2024 Absolute Lymph 1.97 X10 3/uL Normal 0.83-4.51 [facility] Comment on above: Performed By: #### L 100.0100, L500.2500, L501.4021 #### [facility] [address] [place], [address] Absolute Neut 5.6 X10 3/uL Normal 2.0-7.7 [facility] Comment on above: Performed By: #### L 100.0100, L500.2500, L501.4021 #### [facility] [address] [place], [address] Basophils/100 WBC (Bld) 0.5 % Normal 0-1 [facility] Comment on above: Performed By: #### L 100.0100, L500.2500, L501.4021 #### [facility] [address] [place], [address] Eosinophils/100 WBC (Bld) 1.8 % Normal 0-5 [facility] Comment on above: Performed By: #### L 100.0100, L500.2500, L501.4021 #### [facility] [address] [place], [address] Erythrocyte distribution width (RBC) [Ratio] 15.2 % High 11.6-14.6 [facility] Comment on above: Performed By: #### L 100.0100, L500.2500, L501.4021 #### [facility] [address] [place], [address] Hematocrit (Bld) [Volume fraction] 35.3 % Low 37-47 [facility] Comment on above: Performed By: #### L 100.0100, L500.2500, L501.4021 #### [facility] [address] [place], [address] Hemoglobin (Bld) [Mass/Vol] 11.1 g/dL Low 12.0-15.0 [facility] Comment on above: Performed By: #### L 100.0100, L500.2500, L501.4021 #### [facility] [address] [place], [address] IG% 0.200 Normal 0.0-0.9 [facility] Comment on above: Result Comment: IG% - Immature Granulocytes (promyelocytes, myelocytes and metamyelocytes) > 1% indicates that a LEFT SHIFT is Present. Performed By: #### L 100.0100, L500.2500, L501.4021 #### [facility] [address] [place], [address] Lymphocytes/100 WBC (Bld) 24.2 % Normal 19-41 [facility] Comment on above: Performed By: #### L 100.0100, L500.2500, L501.4021 #### [facility] [address] [place], [address] MCH (RBC) [Entitic mass] 25.1 pg Low 27.0-32.0 [facility] Comment on above: Performed By: #### L 100.0100, L500.2500, L501.4021 #### [facility] [address] [place], [address] MCHC (RBC) [Mass/Vol] 31.4 g/dL Low 32-36 [facility] Comment on above: Performed By: #### L 100.0100, L500.2500, L501.4021 #### [facility] [address] [place], [address] MCV (RBC) [Entitic vol] 79.7 fL Low 81-99 [facility] Comment on above: Performed By: #### L 100.0100, L500.2500, L501.4021 #### [facility] [address] [place], [address] Monocytes/100 WBC (Bld) 4.4 % Normal 0-10 [facility] Comment on above: Performed By: #### L 100.0100, L500.2500, L501.4021 #### [facility] [address] [place], [address] Neutrophils/100 WBC (Bld) 68.9 % Normal 47-70 [facility] Comment on above: Performed By: #### L 100.0100, L500.2500, L501.4021 #### [facility] [address] [place], [address] Nucleated RBC (Bld) [#/Vol] 0 10*3/uL Normal 0-5 [facility] Comment on above: Performed By: #### L 100.0100, L500.2500, L501.4021 #### [facility] [address] [place], [address] Platelet mean volume (Bld) [Entitic vol] 10.2 fL Normal 6.2-12.0 [facility] Comment on above: Performed By: #### L 100.0100, L500.2500, L501.4021 #### [facility] [address] [place], [address] Platelets (Bld) [#/Vol] 256 10*3/uL Normal 150-450 [facility] Comment on above: Performed By: #### L 100.0100, L500.2500, L501.4021 #### [facility] [address] [place], [address] RBC (Bld) [#/Vol] 4.43 10*6/uL Normal 4.2-5.4 [facility] Comment on above: Performed By: #### L 100.0100, L500.2500, L501.4021 #### [facility] [address] [place], [address] RDW SD 44.0 fl High 35.1-43.9 [facility] Comment on above: Performed By: #### L 100.0100, L500.2500, L501.4021 #### [facility] [address] [place], [address] WBC (Bld) [#/Vol] 8.2 10*3/uL Normal 4.4-11.0 [facility] Comment on above: Performed By: #### L 100.0100, L500.2500, L501.4021 #### [facility] [address] [place], [address] Comprehensive Metabolic Prof [facility] 03-27-2025 Albumin [Mass/Vol] 4.0 g/dL Normal 3.5-5.0 [facility] Comment on above: Performed By: #### L 100.0100, L500.2500, L501.4021 #### [facility] [address] [place], [address] Albumin/Globulin [Mass ratio] 1.2 {ratio} Normal 0.9-2.4 [facility] Comment on above: Performed By: #### L 100.0100, L500.2500, L501.4021 #### [facility] [address] [place], [address] ALK PHOS 87 U/L Normal 35-104 [facility] Comment on above: Performed By: #### L 100.0100, L500.2500, L501.4021 #### [facility] [address] [place], [address] ALT [Catalytic activity/Vol] 23 U/L Normal <=34 [facility] Comment on above: Performed By: #### L 100.0100, L500.2500, L501.4021 #### [facility] [address] [place], [address] AST [Catalytic activity/Vol] 20 U/L Normal <=31 [facility] Comment on above: Performed By: #### L 100.0100, L500.2500, L501.4021 #### [facility] [address] [place], [address] Bilirubin [Mass/Vol] 0.27 mg/dL Normal 0.00-1.30 [facility] Comment on above: Performed By: #### L 100.0100, L500.2500, L501.4021 #### [facility] [address] [place], [address] BUN/CRE 21.4 RATIO High 10-20 [facility] Comment on above: Performed By: #### L 100.0100, L500.2500, L501.4021 #### [facility] [address] [place], [address] Calcium [Mass/Vol] 8.9 mg/dL Normal 7.6-11.0 [facility] Comment on above: Performed By: #### L 100.0100, L500.2500, L501.4021 #### [facility] [address] [place], [address] Chloride [Moles/Vol] 103 mmol/L Normal 98-108 [facility] Comment on above: Performed By: #### L 100.0100, L500.2500, L501.4021 #### [facility] [address] [place], [address] CO2 [Moles/Vol] 26.6 mmol/L Normal 21.0-32.0 [facility] Comment on above: Performed By: #### L 100.0100, L500.2500, L501.4021 #### [facility] [address] [place], [address] Creatinine [Mass/Vol] 0.56 mg/dL Low 0.70-1.20 [facility] Comment on above: Performed By: #### L 100.0100, L500.2500, L501.4021 #### [facility] [address] [place], [address] GAP 10 Normal 5-15 [facility] Comment on above: Performed By: #### L 100.0100, L500.2500, L501.4021 #### [facility] [address] [place], [address] GFR/1.73 sq M.predicted among non-blacks MDRD (S/P/Bld) [Vol rate/Area] 128 mL/min/{1.73_m2} Normal >60 [facility] Comment on above: Result Comment: mL/m in/1.73m2 CKD-EPI Creatinine Equation (2020) Performed By: #### L 100.0100, L500.2500, L501.4021 #### [facility] [address] [place], [address] Globulin (S) [Mass/Vol] 3.4 g/dL Normal 2.2-4.2 [facility] Comment on above: Performed By: #### L 100.0100, L500.2500, L501.4021 #### [facility] [address] [place], [address] Glucose [Mass/Vol] 90 mg/dL Normal 70-99 [facility] Comment on above: Performed By: #### L 100.0100, L500.2500, L501.4021 #### [facility] [address] [place], [address] Potassium [Moles/Vol] 3.8 mmol/L Normal 3.3-5.1 [facility] Comment on above: Performed By: #### L 100.0100, L500.2500, L501.4021 #### [facility] [address] [place], [address] Sodium [Moles/Vol] 139 mmol/L Normal 133-145 [facility] Comment on above: Performed By: #### L 100.0100, L500.2500, L501.4021 #### [facility] [address] [place], [address] T PROT 7.5 g/dL Normal 5.9-8.4 [facility] Comment on above: Performed By: #### L 100.0100, L500.2500, L501.4021 #### [facility] [address] [place], [address] Urea nitrogen [Mass/Vol] 12 mg/dL Normal 4-19 [facility] Comment on above: Performed By: #### L 100.0100, L500.2500, L501.4021 #### [facility] [address] [place], [address] Lipaseon 03-27-2025 Lipase [Catalytic activity/Vol] 20 U/L Normal 13-75 [facility] Comment on above: Result Comment: Sandhya travis note: LIPASE revised reference range effective 22. New Lipase methodology. Expected to produce lower values than the previous assay method. NEW Reference Range: 13 - 75 U/L Performed By: #### L 100.0100, L500.2500, L501.4021 #### [facility] [address] [place], [address] Urinalysis, Routine (Dipstic k)on 03-27-2025 BILIRUBIN URINE Negative Normal Negative [facility] Comment on above: Order Comment: Urine , Random Performed By: #### L 400.2010, M100.0 ####[facility] [address] [place], [address] Clarity (U) Clear Normal Clear [facility] Comment on above: Order Comment: Urine , Random Performed By: #### L 400.2010, ####[facility] [address] [place], [address] Color (U) Yellow Normal Yellow [facility] Comment on above: Order Comment: Urine , Random Performed By: #### L 400.2010, ####[facility] [address] [place], [address] GLUCOSE, UR Normal Normal Normal [facility] Comment on above: Order Comment: Urine , Random Performed By: #### L 400.2010, ####[facility] [address] [place], [address] KETONE UR Negative Normal Negative [facility] Comment on above: Order Comment: Urine , Random Performed By: #### L 400.2010, ####[facility] [address] [place], [address] LEUK ESTERASE 25 /ul Abnormal Negative [facility] Comment on above: Order Comment: Urine , Random Performed By: #### L 400.2010, ####[facility] [address] [place], [address] Nitrite Ql (U) Negative Normal Negative [facility] Comment on above: Order Comment: Urine , Random Performed By: #### L 400.2010, ####[facility] [address] [place], [address] OCCULT BLOOD-UR 150 /ul Abnormal Negative [facility] Comment on above: Order Comment: Urine , Random Performed By: #### L 400.2010, ####[facility] [address] [place], [address] pH UR 6.5 Normal 5.0 - 8.0 [facility] Comment on above: Order Comment: Urine , Random Performed By: #### L 400. ####[facility] [address] [place], [address] PROT DIPSTX 30 mg/dl Abnormal Negative [facility] Comment on above: Order Comment: Urine , Random Performed By: #### L 400. ####[facility] [address] [place], [address] SP.GR. DIPSTX 1.015 Normal 1.002-1.030 [facility] Comment on above: Order Comment: Urine , Random Performed By: #### L 400. ####[facility] [address] [place], [address] UROBILI Normal Normal Normal [facility] Comment on above: Order Comment: Urine , Random Performed By: #### L 400. ####[facility] [address] [place], [address] hCG Titer Quant., Serumon HCG QUANT. < 1 Normal <9 non-preg [facility] Comment on above: Result Comment: Gest ational Age 0.2-1 Week: 5-50 mIU/mL 1-2 Weeks: 50-500 mIU/mL 2-3 Weeks: 100-5000 mIU/mL 3-4 Weeks: 500-10,000 mIU/mL 4-5 Weeks:1000-50,000 mIU/mL 5-6 Weeks: 10,000-100,000 mIU/mL 6-8 Weeks: 15,000-200,000 mIU/mL 2-3 Months:10,000-100,000 mIU/mL Performed By: #### L 100.0100, L500.2500, L501.4021 #### [facility] [address] [place], [address] MR/BMS.BPon 02-22-2025 MR/BMS.[address], [address] [place] [address] OFFICE VISIT Date of Service: 02/22/25 MR#: [id number] Acct: [id number] Name: CEDRIC HOPE Rep #: [id number] : 1995 Provider: JANEL jaffe Age/Sex: 29/F Location: [facility] Status: Signed Intake Vital Signs 01/23/25 13:05 02/19/25 09:23 02/22/25 10:01 Height 5 ft 4 in 5 ft 4 in 5 ft 4 in BP Intake Visit Reasons: 4-6 wfu Allergies No Known Allergies Allergy (Verified 02/19/25 09:21) PFSH Medical History Ulcer of gingiva Depression [...] family current occupational status: employed 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 Has started working a second job at at [employer] and is currently working 70 hours per week between her 2 jobs. Reports she has been doing well mentally. Does feel propranolol has been largely beneficial for her. Does report a reduced nighttime anxiety and has been sleeping better. Does continue to have times of anxiety but feels it is much easier to manage. Reports she had 1 panic attacks since her last appointment but reports she had not taken her medication and feels this contributed. Denies recent feelings of depression. Admits to continued crying spells. Denies SI/HI. Sleep has been good overall. Reports she is currently weighing 288 pounds. Has been increasing water intake and protein intake. Was wanting to start on Vyvanse but her insurance won't cover for BED. Reports she has continued to have some focus issues but has been working on this behaviorally. This tele-medicine visit was performed via audio/video technology. Previous similar episode: Yes Age of first onset of symptoms: 11-20 years Review of Systems Constitutional Reports: change in weight (loss); Denies: fever(s), chills or fatigue Eyes Denies: [...] Neurological Reports: headache(s) Psychiatric Reports: anxiety, panic attacks and difficulty concentrating; Denies: mood swings, change in sleep pattern, hopelessness, loss of interest, irritability, paranoia, memory loss, visual hallucinations, auditory [...] (per patient self report) Sensorium/Orientation awake, alert an (more content not included)... Normal [facility] Genital Culture Comprehensiv vania 02-21-2025 VAC Reason for Exam: Vaginal Irritation Normal vaginal hesham isolated. No yeast, Gardnerella, Neisseria or beta-hemolytic Streptococcus isolated. Normal [facility] Comment on above: Performed By: #### L 100.0100, L500.2500, L501.4021 #### [facility] [address] [place], [address] Chlamydia/GC VINOD aptimaon CHLAMY,NUC ACID Negative Normal Negative [facility] Comment on above: Performed By: #### L 100.0100, L500.2500, L501.4021 #### [facility] [address] [place], [address] GC BY NUC ACID Negative Normal Negative [facility] Comment on above: Result Comment: Perf ormed at: =G - [facility] [address] [id number] Welding [employer]: Tanika Boyd MD, Phone: [phone] Performed By: #### L 100.0100, L500.2500, L501.4021 #### [facility] [address] [place], [address] Gram Stainon 02-19-2025 Reason for Exam: Vaginal Irritation Gram Stain 3+ Gram positive rods 1+ Epithelial cells No Gram negative diplococci 4+ Gram variable kathryn Score = 5 Interpretation: 0-3 Normal, 4-6 Intermediate, 7-10 Positive BV Normal [facility] Comment on above: Performed By: #### L 100.0100, L500.2500, L501.4021 #### [facility] [address] [place], [address] Fishing Worker Office Visit Reporton 02-19-2025 Fishing Worker Office Visit Report [facility] [address], [address] [place] [address] OFFICE VISIT Date of Service: 02/19/25 MR#: [id number] Acct: [id number] Name: CEDRIC HOPE Rep #: [id number] : 1995 Provider: ZITA Morejon ams Age/Sex: 29/F Location: [facility] Status: Signed Intake Vital Signs 01/23/25 13:05 02/19/25 07:31 02/19/25 09:23 Height 5 ft 4 in 5 ft 4 in 5 ft 4 in Weight: 289 lb 4 oz BMI 49.6 BP 128/62 H Intake Visit Reasons: BV Chief Complaint: Possible BV Benefits Representative Required: No Is patient in pain?: No Allergies No Known Allergies Allergy (Verified 02/19/25 09:21) Medications ???Medication ???Instructions ???Recorded ???Confirmed ???Type metoprolol tartrate 25 mg tablet 25 mg PO QDAY 01/04/24 02/19/25 Hi story pantoprazole 40 mg tablet,delayed 40 mg PO DAILY #30 tabs 02/02/24 02/19/25 Rx release levonorgestrel (Mirena) 1 device intrauterine ONCE 5 02/19/25 History propranolol 10 mg tablet 10 mg PO TID PRN anxiety #60 tabs 01/23/25 02/19/25 Rx trazodone 50 mg tablet 50 mg PO QHS PRN insomnia #90 tabs 01/23/25 02/19/25 Rx venlafaxine 150 mg 150 mg PO QAM #90 caps 01/23/25 Rx capsule,extended release 24 hr Post menopausal: No Control Method: mirena PFSH Medical History Ulcer of gingiva Depression [...] current occupational status: employed 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 Was on atb last week and had fluconazole afterwards for hx of yeast infections. HAs had BV twice this year after atb and is concerned she has again. Had been with new partner and requesting STI swabs Female Reproductive History Last Menstrual Period: 02/17/25 Questions: sexually active: Yes, dyspareunia: No and PCB: No History 2 Elective abortions Hx Para 2 Spontaneous abortions Hx # Term Pregnancies Ectopic pregnancies Hx # Pregnancies Multiple births # of living children 2 Past Pregnancies Del. Date Name GA/Weeks Outcome Route Bth [facility] Sondra 40 live - full term 8lbs 14oz Female 23 hours epidural W CH RR Rui 10/01/21 Jelani 39 live - full term Male [facility] Ma rcanthony Delivery Date: 04/12/17 Last Updated by: Christine Ascencio AoD- failed induction; thick meconium- initially clear thick MSF by delivery Delivery Date: 10/01/21 Last Updated by: Leslie Gibbons RLTCS GDMA2 ROS Const Constitutional: Reports system reviewed [...] acute distress Resp Effort Inspection: normal respiratory effort, able to speak in complet (more content not included)... 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 Has met with a rn allergy and started increasing protein and water intake. [...] Exam Constitution (more content not included)... Normal [facility] Fishing Worker Office Visit Reporton 12-31-2024 Fishing Worker Office Visit Report [facility] [address], [address] [place] [address] OFFICE VISIT Date of Service: 12/31/24 MR#: [id number] Acct: [id number] Name: CEDRIC HOPE Rep #: [id number] : 1995 Provider: Dr. 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 she has never met with a rn allergy. she is struggling with binge eating episodes, [...] dizziness, No (more content not included)... Normal [facility] HSV 1 AND 2 IgGon 12-20-2024 HSV 1 IgG Non-Reactive Normal Non Reactive [facility] Comment on above: Result Comment: Pl ease note reference interval change HSV-1 IgG testing performed using the [employer] HSV-1 IgG assay. Performed By: #### L 3400.1610, L509.8002, L3890.6102, L3890.6301, L3890.6006 ####[facility] [address] [place], [address] HSV 2 IgG Non-Reactive Normal Non Reactive [facility] Comment on above: Result Comment: Pl ease [...] [employer] HSV-2 IgG assay. Performed at: [address] [id number] Welding [employer]: Micheal Dudley PhD, Phone: [phone] Performed By: #### L 3400.1610, L509.8002, L3890.6102, L3890.3333, L3890.6006 ####[facility] [address] [place], [address] 12 Lead EKGon 12-19-2024 12 Lead EKG [facility] [address] [place] [address] 12 Lead EKG 12/19/24 1414 MR#: [id number] Acct: [id number] Name: CEDRIC HOPE Rep #: [id number] : 1995 29 From: Marisol Leonard MD [...] Normal ECG Confirmed by FENG FORD, ELLY ([id number]), slot editor SHANT LUNSFORD ([id number]) on 12/24/2024 6:08:55 AM Referred By: TB Confirmed By: ELLY LEONARD MD 12/24/24 0608 Date Marisol Leonard MD CC: Dr. Alecia Rogers MD; Dr. Erick Camacho MD Signed Normal [facility] Basic Metabolic Profile (BMP )on 12-19-2024 BUN/CRE 16.1 RATIO Normal 10-20 [facility] Comment on above: Performed By: #### L 100.0100, L500.2500, L501.4021 #### [facility] [address] [place], [address] Calcium [Mass/Vol] 9.3 mg/dL Normal 7.6-11.0 [facility] Comment on above: Performed By: #### L 100.0100, L500.2500, L501.4021 #### [facility] [address] [place], [address] Chloride [Moles/Vol] 99 mmol/L Normal 98-108 [facility] Comment on above: Performed By: #### L 100.0100, L500.2500, L501.4021 #### [facility] [address] [place], [address] CO2 [Moles/Vol] 26.7 mmol/L Normal 21.0-32.0 [facility] Comment on above: Performed By: #### L 100.0100, L500.2500, L501.4021 #### [facility] [address] [place], [address] Creatinine [Mass/Vol] 0.64 mg/dL Low 0.70-1.20 [facility] Comment on above: Performed By: #### L 100.0100, L500.2500, L501.4021 #### [facility] [address] [place], [address] ECRCL 179.41 ml/min Normal 50-250 [facility] Comment on above: Performed By: #### L 100.0100, L500.2500, L501.4021 #### [facility] [address] [place], [address] GAP 12 Normal 5-15 [facility] Comment on above: Performed By: #### L 100.0100, L500.2500, L501.4021 #### [facility] [address] [place], [address] GFR/1.73 sq M.predicted among non-blacks MDRD (S/P/Bld) [Vol rate/Area] 124 mL/min/{1.73_m2} Normal >60 [facility] Comment on above: Result Comment: mL/m in/1.73m2 CKD-EPI Creatinine Equation (2020) Performed By: #### L 100.0100, L500.2500, L501.4021 #### [facility] [address] [place], [address] Glucose [Mass/Vol] 117 mg/dL High 70-99 [facility] Comment on above: Performed By: #### L 100.0100, L500.2500, L501.4021 #### [facility] [address] [place], [address] Potassium [Moles/Vol] 4.1 mmol/L Normal 3.3-5.1 [facility] Comment on above: Performed By: #### L 100.0100, L500.2500, L501.4021 #### [facility] [address] [place], [address] Sodium [Moles/Vol] 138 mmol/L Normal 133-145 [facility] Comment on above: Performed By: #### L 100.0100, L500.2500, L501.4021 #### [facility] [address] [place], [address] Urea nitrogen [Mass/Vol] 10 mg/dL Normal 4-19 [facility] Comment on above: Performed By: #### L 100.0100, L500.2500, L501.4021 #### [facility] [address] [place], [address] CBC W/Diff, Automatedon 06-0 -2024 Absolute Lymph 2.27 X10 3/uL Normal 0.83-4.51 [facility] Comment on above: Performed By: #### L 100.0100, L500.2500, L501.4021 #### [facility] [address] [place], [address] Absolute Neut 8.3 X10 3/uL High 2.0-7.7 [facility] Comment on above: Performed By: #### L 100.0100, L500.2500, L501.4021 #### [facility] [address] [place], [address] Basophils/100 WBC (Bld) 0.4 % Normal 0-1 [facility] Comment on above: Performed By: #### L 100.0100, L500.2500, L501.4021 #### [facility] [address] [place], [address] Eosinophils/100 WBC (Bld) 1.1 % Normal 0-5 [facility] Comment on above: Performed By: #### L 100.0100, L500.2500, L501.4021 #### [facility] [address] [place], [address] Erythrocyte distribution width (RBC) [Ratio] 15.5 % High 11.6-14.6 [facility] Comment on above: Performed By: #### L 100.0100, L500.2500, L501.4021 #### [facility] [address] [place], [address] Hematocrit (Bld) [Volume fraction] 36.8 % Low 37-47 [facility] Comment on above: Performed By: #### L 100.0100, L500.2500, L501.4021 #### [facility] [address] [place], [address] Hemoglobin (Bld) [Mass/Vol] 11.6 g/dL Low 12.0-15.0 [facility] Comment on above: Performed By: #### L 100.0100, L500.2500, L501.4021 #### [facility] [address] [place] [place], [address] IG% 0.400 Normal 0.0-0.9 [facility] Comment on above: Result Comment: IG% - Immature Granulocytes (promyelocytes, myelocytes and metamyelocytes) > 1% indicates that a LEFT SHIFT is Present. Performed By: #### L 100.0100, L500.2500, L501.4021 #### [facility] [address] [place], [address] Lymphocytes/100 WBC (Bld) 20.1 % Normal 19-41 [facility] Comment on above: Performed By: #### L 100.0100, L500.2500, L501.4021 #### [facility] [address] [place], [address] MCH (RBC) [Entitic mass] 24.5 pg Low 27.0-32.0 [facility] Comment on above: Performed By: #### L 100.0100, L500.2500, L501.4021 #### [facility] [address] [place], [address] MCHC (RBC) [Mass/Vol] 31.5 g/dL Low 32-36 [facility] Comment on above: Performed By: #### L 100.0100, L500.2500, L501.4021 #### [facility] [address] [place], [address] MCV (RBC) [Entitic vol] 77.6 fL Low 81-99 [facility] Comment on above: Performed By: #### L 100.0100, L500.2500, L501.4021 #### [facility] [address] [place], [address] Monocytes/100 WBC (Bld) 4.3 % Normal 0-10 [facility] Comment on above: Performed By: #### L 100.0100, L500.2500, L501.4021 #### [facility] [address] [place], [address] Neutrophils/100 WBC (Bld) 73.7 % High 47-70 [facility] Comment on above: Performed By: #### L 100.0100, L500.2500, L501.4021 #### [facility] [address] [place], [address] Nucleated RBC (Bld) [#/Vol] 0 10*3/uL Normal 0-5 [facility] Comment on above: Performed By: #### L 100.0100, L500.2500, L501.4021 #### [facility] [address] [place], [address] Platelet mean volume (Bld) [Entitic vol] 10.1 fL Normal 6.2-12.0 [facility] Comment on above: Performed By: #### L 100.0100, L500.2500, L501.4021 #### [facility] [address] [place], [address] Platelets (Bld) [#/Vol] 285 10*3/uL Normal 150-450 [facility] Comment on above: Performed By: #### L 100.0100, L500.2500, L501.4021 #### [facility] [address] [place], [address] RBC (Bld) [#/Vol] 4.74 10*6/uL Normal 4.2-5.4 [facility] Comment on above: Performed By: #### L 100.0100, L500.2500, L501.4021 #### [facility] [address] [place], [address] RDW SD 43.0 fl Normal 35.1-43.9 [facility] Comment on above: Performed By: #### L 100.0100, L500.2500, L501.4021 #### [facility] [address] [place], [address] WBC (Bld) [#/Vol] 11.3 10*3/uL High 4.4-11.0 [facility] Comment on above: Performed By: #### L 100.0100, L500.2500, L501.4021 #### [facility] [address] [place], [address] Chest 1 View (Portable)on Chest 1 View (Portable) [facility] Imaging Services [address] [place] [address] Chest 1 View (Portable) MR#: [id number] Acct: [id number] Name: CEDRIC HOPE Rep #: [id number] : 1995 F 29 From: Meredith Blevins PCP: Dr. Alecia Rogers MD Status: REG ER Study: Chest 1 View (Portable) Date of Exam: 12/19/24 Exam# [id number] Ordering Dr: Erick Camacho MD PROCEDURE: CHEST 1 VIEW (PORTABLE) 12/19/2024 REASON FOR EXAM: CHEST PAIN TECHNIQUE: Frontal view of the chest. COMPARISON: 06/05/2024 FINDINGS: No focal consolidations. No pleural effusion or pneumothorax. Cardiac silhouette is unchanged. No acute fractures. RAD/Chest 1 View (Portable) IMPRESSION: No focal consolidations. Reading Location: [id number] CC: Dr. Alecia Rogers MD; Dr. 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 Normal [facility] L499.0042on 12-19-2024 Trop T High Sen Normal <=14 [facility] Comment on above: Result Comment: Canc elled via OM: Order cancelled - Patient discharged Performed By: #### L 499.0042 #### [facility] [address] [place], [address] L499.0043on 12-19-2024 Trop T High Sen Normal <=14 [facility] Comment on above: Result Comment: Canc elled via OM: Order cancelled - Patient discharged Performed By: #### L 499.0043 ####[facility] [id number] [place], [address] L501.4021on 12-19-2024 Trop T High Sen < 6 Normal <=14 [facility] Comment on above: Performed By: #### L 100.0100, L500.2500, L501.4021 #### [facility] [address] [place], [address] CBC W/Diff, Automatedon 06-0 -2024 Absolute Lymph 2.29 X10 3/uL Normal 0.83-4.51 [facility] Comment on above: Performed By: #### L 100.0100, L500.2500, L501.4021 #### [facility] [address] [place], [address] Absolute Neut 6.6 X10 3/uL Normal 2.0-7.7 [facility] Comment on above: Performed By: #### L 100.0100, L500.2500, L501.4021 #### [facility] [address] [place], [address] Basophils/100 WBC (Bld) 0.5 % Normal 0-1 [facility] Comment on above: Performed By: #### L 100.0100, L500.2500, L501.4021 #### [facility] [address] [place], [address] Eosinophils/100 WBC (Bld) 1.8 % Normal 0-5 [facility] Comment on above: Performed By: #### L 100.0100, L500.2500, L501.4021 #### [facility] [address] [place], [address] Erythrocyte distribution width (RBC) [Ratio] 15.9 % High 11.6-14.6 [facility] Comment on above: Performed By: #### L 100.0100, L500.2500, L501.4021 #### [facility] [address] [place], [address] Hematocrit (Bld) [Volume fraction] 39.5 % Normal 37-47 [facility] Comment on above: Performed By: #### L 100.0100, L500.2500, L501.4021 #### [facility] [address] [place], [address] Hemoglobin (Bld) [Mass/Vol] 12.0 g/dL Normal 12.0-15.0 [facility] Comment on above: Performed By: #### L 100.0100, L500.2500, L501.4021 #### [facility] [address] [place], [address] IG% 0.300 Normal 0.0-0.9 [facility] Comment on above: Result Comment: IG% - Immature Granulocytes (promyelocytes, myelocytes and metamyelocytes) > 1% indicates that a LEFT SHIFT is Present. Performed By: #### L 100.0100, L500.2500, L501.4021 #### [facility] [address] [place], [address] Lymphocytes/100 WBC (Bld) 23.8 % Normal 19-41 [facility] Comment on above: Performed By: #### L 100.0100, L500.2500, L501.4021 #### [facility] [address] [place], [address] MCH (RBC) [Entitic mass] 24.4 pg Low 27.0-32.0 [facility] Comment on above: Performed By: #### L 100.0100, L500.2500, L501.4021 #### [facility] [address] [place], [address] MCHC (RBC) [Mass/Vol] 30.4 g/dL Low 32-36 [facility] Comment on above: Performed By: #### L 100.0100, L500.2500, L501.4021 #### [facility] [address] [place], [address] MCV (RBC) [Entitic vol] 80.4 fL Low 81-99 [facility] Comment on above: Performed By: #### L 100.0100, L500.2500, L501.4021 #### [facility] [address] [place], [address] Monocytes/100 WBC (Bld) 5.2 % Normal 0-10 [facility] Comment on above: Performed By: #### L 100.0100, L500.2500, L501.4021 #### [facility] [address] [place], [address] Neutrophils/100 WBC (Bld) 68.4 % Normal 47-70 [facility] Comment on above: Performed By: #### L 100.0100, L500.2500, L501.4021 #### [facility] [address] [place], [address] Nucleated RBC (Bld) [#/Vol] 0 10*3/uL Normal 0-5 [facility] Comment on above: Performed By: #### L 100.0100, L500.2500, L501.4021 #### [facility] [address] [place], [address] Platelet mean volume (Bld) [Entitic vol] 10.5 fL Normal 6.2-12.0 [facility] Comment on above: Performed By: #### L 100.0100, L500.2500, L501.4021 #### [facility] [address] [place], [address] Platelets (Bld) [#/Vol] 267 10*3/uL Normal 150-450 [facility] Comment on above: Performed By: #### L 100.0100, L500.2500, L501.4021 #### [facility] [address] [place], [address] RBC (Bld) [#/Vol] 4.91 10*6/uL Normal 4.2-5.4 [facility] Comment on above: Performed By: #### L 100.0100, L500.2500, L501.4021 #### [facility] [address] [place], [address] RDW SD 45.6 fl High 35.1-43.9 [facility] Comment on above: Performed By: #### L 100.0100, L500.2500, L501.4021 #### [facility] [address] [place], [address] WBC (Bld) [#/Vol] 9.6 10*3/uL Normal 4.4-11.0 [facility] Comment on above: Performed By: #### L 100.0100, L500.2500, L501.4021 #### [facility] [address] [place], [address] HIVon 12-18-2024 HIV Non-Reactive Normal Nonreactive [facility] Comment on above: Result Comment: Non- Reactive Reactive Repeatedly reactive samples must be confirmed according to CDC recommended confirmatory algorithms. The subresults for either HIVAG or AHIV can be used as an aid in the selection of the confirmation algorithm for reactive samples. Send out specimens with Reactive results to [facility] for confirmation. Order the HIV antibody detection and differentiation: #[id number] Performed By: #### L 3400.1610, L509.8002, L3890.6102, L3890.6301, L3890.6006 ####[facility] [id number], [address] Hemoglobin A1con 12-18-2024 HbA1c (Bld) [Mass fraction] 5.4 % Normal <=5.6 [facility] Comment on above: Result Comment: Norm al < 5.7 % Prediabetic 5.7 - 6.4 % Diabetic >or= 6.5 % Please note range changes. Performed By: #### L 100.0100, L500.2500, L501.4021 #### [facility] [address] [facility] [address] [place], [place], [address] Hepatitis C Antibodyon 12-18 Hepatitis C Ab Non-Reactive Normal Nonreactive [facility] Comment on above: Result Comment: Reac tive: Presumptive evidence of antibodies to HCV. Follow CDC recommendations for supplemental testing. Non-Reactive: Antibodies to HCV were not detected; does not exclude the possibility of exposure to HCV Reactive Results are presumptive evidence of antibodies to HCV. Follow CDC recommendations for supplemental testing. Order confirmation testing: HCV Quant by PCR testing - [facility]PCR #[id number] Non Reactive: < 0.8 Equivocal: >/= 0.8 to < 1.0 Reactive: >/= 1.0 The CDC requires that a reactive/equivocal HCV antibody result be sent out for confirmation. HCV Quant by PCR testing. Performed By: #### L 3400.1610, L509.8002, L3890.6102, L3890.6301, L3890.6006 ####[facility] [id number] [facility] [place], [address] L3890.6102on 12-18-2024 HEP B Surf Ag Non-Reactive Normal Nonreactive [facility] Comment on above: Result Comment: Reac tive: Presumptive evidence of HBV. Repeatedly reactive samples must be confirmed using a neutralization test ([employer] HBsAg Confirmatory Test) Non-Reactive: HBsAg not detected; does not exclude the possibility of exposure to HBV Performed By: #### L 3400.1610, L509.8002, L3890.6102, L3890.6301, L3890.6006 ####[facility] [id number] [place], [address] Fishing Worker Office Visit Reporton 12-18-2024 Fishing Worker Office Visit Report [facility] [address], [address] [place] [address] OFFICE VISIT Date of Service: 12/18/24 MR#: [id number] Acct: [id number] Name: CEDRIC HOPE Rep #: [id number] : 1995 Provider: JANEL Esposito Age/Sex: 29/F Location: 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 Normal [facility] Syphilis Antibodieson 2024 Syphilis Abs Non-Reactive Normal Nonreactive [facility] Comment on above: Performed By: #### L 3400.1610, L509.8002, L3890.6102, L3890.6301, L3890.6006 ####[facility] [id number] [place], [address] BACTERIAL VAGINOSIS NAATon 0 12-09-2024 Lactobacillus crispatus+gasseri+ jensenii + Gardnerella vaginalis + Atopobium vaginae rRNA VINOD+probe Ql (Vag fld) Not detected Normal Not detected [facility] Comment on above: Order Comment: Speci men Type: SWAB Ordering Facility: [facility] Address: [address] [place] [address] Performed By: #### Severino FORBES, 09435-8 #### [facility] CLIA [id number] [address] [place] [address] [place] [address] [place] Bacteria Ur Culton Bacteria identified Cx Nom (U) CULTURE, URINE: No growth (<1,000 CFU/ml) Normal [facility] Comment on above: Performed By: #### 6 30-4 ####[facility] [id number] [place] [address] [place] C. trachomatis+N. gonorrhoea e DNA VINOD+probe Ql (Unsp spec)on 12-09-2024 C. trachomatis rRNA VINOD+probe Ql (Unsp spec) Not detected Normal Not detected [facility] Comment on above: Order Comment: Speci men Type: SWAB Ordering Facility: [facility] Address: [address] [place] [address] Performed By: #### Severino VAMP, 50641-6 #### [facility] CLIA [id number] [address] [place] [address] [place] N. gonorrhoeae rRNA VINOD+probe Ql (Unsp spec) Not detected Normal Not detected [facility] Comment on above: Order Comment: Speci men Type: SWAB Ordering Facility: [facility] Address: [address] [place] [address] Performed By: #### Severino VAMP, 96509-7 #### [facility] CLIA [id number] [address] [place] [address] [place] CHRISSIE/TRICHOMONAS NAATon 0 12-09-2024 C. glabrata RNA VINOD+probe Ql (Vag fld) Not detected Normal Not detected [facility] Comment on above: Order Comment: Speci men Type: SWAB Ordering Facility: [facility] Address: [address] [place] [address] Performed By: #### C VTV #### [facility] CLIA [id number] [address] [place] [address] [place] Chrissie sp DNA VINOD+probe Ql (Vag fld) Not detected Normal Not detected [facility] Comment on above: Order Comment: Speci men Type: SWAB Ordering Facility: [facility] Address: [address] [place] [address] Result Comment: The Chrissie species group target includes C. albicans, C. tropicalis, C. parapsilosis, and C. dubliniensis. Performed By: #### C VTV #### [facility] CLIA [id number] [address] [place] [address] [place] T. vaginalis DNA VINOD+probe Ql (Unsp spec) Not detected Normal Not detected [facility] Comment on above: Order Comment: Speci men Type: SWAB Ordering Facility: [facility] Address: [address] [place] [address] Performed By: #### C VTV #### [facility] CLIA [id number] [address] [place] [address] OF [facility] CNOVon 12-09-2024 CNOV Office Visit (UCWSTR ) JAYYCEDRIC Mejia ([id number]) 1995 F Date Time Provider Department 12/09/24 10:45 AM NICOLASA DICKENS [facility] During your visit today, we recorded the following information about you: Temperature Pulse Blood pressure Weight 98.1 degrees 65/minute 120/74 134.9 kg Height 1.6 m Nicolasa Dickens, LEATHA.PLANE CAPTAIN 12/09/2024 11:09 AM Signed [facility] Subjective Cderic Roberto Hope is a 29 year old female. [...] mouth. (Patient not taking: Reported on 05/11/2022) Ueanxvzj-Xb-Kbw-Fe-FA ( VITAMIN) tab Take 1 tablet by [...] nursing note reviewed. Exam conducted with a commercial crabber present. Constitutional: General: She is not in acute distress. Appearance: Normal appearance. She is not ill-appearing. Cardiovascular: Rate and Rhythm: Normal rate. Pulmonary: Effort: Pulmonary effort is normal. Genitourinary: General: Normal vulva. Exam position: Lithotomy position. (more content not included)... Normal [facility] UA DIP, URINE (POC)on 2024 BILIRUBIN UA (POCT) Negative Negative [facility] CLARITY UA (POCT) Clear [facility] COLOR UA (POCT) [facility] GLUCOSE UA (POCT) Negative Negative mg/dL [facility] Hemoglobin Ql (U) Trace-intact Abnormal Negative [facility] Interpretation and review of laboratory results Abnormal [facility] KETONE UA (POCT) Negative Negative mg/dL [facility] LEUKOCYTES UA (POCT) Negative Negative [facility] NITRITE UA (POCT) Negative Negative [facility] PH UA (POCT) 7 4.5 - 8.0 [facility] Protein Ql (U) Negative Negative mg/dL [facility] SPECIFIC GRAVITY UA (POCT) 1.015 1.005 - 1.030 [facility] UROBILINOGEN UA (POCT) 0.2 Normal E.U./dL [facility] Location:[address], [place], [place], [address] [place] [address] POINT OF CARE [facility] MR/BMS.BPon 12-05-2024 MR/BMS.BP [facility] [address], [address] [place] [address] OFFICE VISIT Date of Service: 12/05/24 MR#: [id number] Acct: [id number] Name: CEDRIC HOPE Rep #: [id number] : 1995 Provider: JANEL jaffe Age/Sex: 29/F Location: [facility] Status: Signed Intake Vital Signs 10/31/24 15:00 [...] family current occupational status: employed 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 Has transitioned her counselor to another Jainism counselor and is enjoying this. Feels she [...] full range (more content not included)... Normal [facility] Chlamydia/GC VINOD aptimaon CHLAMY,NUC ACID Negative Normal Negative [facility] Comment on above: Performed By: #### L 100.0100, L500.2500, L501.4021 #### [facility] [address] [place], [place], [id number] GC BY NUC ACID Negative Normal Negative [facility] Comment on above: Result Comment: Perf ormed at: =G - [facility] [id number] Welding Machine Operator [employer]: Tanika Boyd MD, Phone: [phone] Performed By: #### L 100.0100, L500.2500, L501.4021 #### [facility] [address] [place], [place], [id number] Genital Culture Comprehensiv vania 11-01-2024 VAC Reason for Exam: vaginal discharge Normal vaginal hesham isolated. No yeast, Gardnerella, Neisseria or beta-hemolytic Streptococcus isolated. Normal [facility] Comment on above: Performed By: #### L 100.0100, L500.2500, L501.4021 #### [facility] [address] [place], [address] Gram Stainon 10-31-2024 GS Reason for Exam: vaginal discharge Gram Stain 2+ Gram positive rods 1+ Gram positive cocci 2+ Gram variable kathryn No Gram negative diplococci Score =4 Interpretation: 0-3 Normal, 4-6 Intermediate, 7-10 Positive BV Normal [facility] Comment on above: Performed By: #### L 100.0100, L500.2500, L501.4021 #### [facility] [address] [place], [address] Fishing Worker Office Visit Reporton 10-31-2024 Fishing Worker Office Visit Report [facility] [address], [address] [place] [address] OFFICE VISIT Date of Service: 10/31/24 MR#: [id number] Acct: [id number] Name: CEDRIC HOPE Rep #: [id number] : 1995 Provider: JANEL Esposito Age/Sex: 29/F Location: [facility] Status: Signed Intake Vital Signs 10/11/24 08:54 10/29/24 08:49 10/31/24 14:56 10/31/24 15:00 Height 5 ft 4 in 5 ft 4 in 5 ft 4 in 5 ft 4 in Weight: 291 lb 294 lb BMI 49.9 50.4 BP 121/70 H 123/72 H Intake Visit Reasons: Yeast Infection FU Benefits Representative Required: No Is patient in pain?: No [...] No Patient : No Control Method: mirena PFSH Medical History Ulcer of gingiva Depression [...] family current occupational status: employed 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 Normal [facility] Genital Culture Comprehensiv vania 10-15-2024 VAC Reason for Exam: vaginal discharge No yeast, Gardnerella, Neisseria or beta-hemolytic Streptococcus isolated. Escherichia coli Amount Growth 3+ * This is an amended result. * A prior result that was reported as final has been changed. 10/15/24 0850 by JAKEIPES Escherichia coli: REACTION Ampicillin Islt SOCO >=32 Ampicillin+Sulbac Islt SOCO 16 I Cefepime Islt SOCO <=0.12 S cefTRIAXone Islt SOCO <=0.25 S Ciprofloxacin Islt SOCO <=0.06 S B-Lactamase Extended Susc Islt NEG Gentamicin Islt SOCO <=1 S levoFLOXacin Islt SOCO <=0.12 S Meropenem Islt SOCO <=0.25 S Pip+Tazo Islt SOCO <=4 S TMP SMX Islt SOCO <=20 S Normal [facility] Comment on above: Performed By: #### M 100.3200, M1.1999 ####[facility] [id number] [place], [place], [address] Gram Stainon 10-11-2024 GS Reason for Exam: vaginal discharge Gram Stain 2+ Gram positive rods No Gram negative diplococci No White Blood Cells Score = 2 Interpretation: 0-3 Normal, 4-6 Intermediate, 7-10 Positive BV Normal [facility] Comment on above: Performed By: #### M 100.3200, M1.1999 ####[facility] [id number] [place], [place], [address] Fishing Worker Office Visit Reporton 10-11-2024 Fishing Worker Office Visit Report [facility] [address], [address] [place] [address] OFFICE VISIT Date of Service: 10/11/24 MR#: [id number] Acct: [id number] Name: CEDRIC HOPE Rep #: [id number] : 1995 Provider: JANEL Esposito Age/Sex: 29/F Location: [facility] Status: Signed Intake Vital Signs 10/01/24 11:32 10/11/24 08:54 Height 5 ft 4 in 5 ft 4 in Weight: 291 lb BMI 49.9 BP 121/70 H Intake Visit Reasons: possible yeast infection Benefits Representative Required: No Allergies No Known Allergies Allergy [...] family current occupational status: employed 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 Normal [facility] Chlamydia/GC VINOD aptimaon CHLAMY,NUC ACID Negative Normal Negative [facility] Comment on above: Performed By: #### L 7000.1800 ####[facility] [id number] [place], [place], [id number] GC BY NUC ACID Negative Normal Negative [facility] Comment on above: Result Comment: Perf ormed at: =G - [facility] [address] [id number] Welding Machine Operator [employer]: Tanika Boyd MD, Phone: [phone] Performed By: #### L 7000.1800 ####[facility] [id number] [place], [place], [id number] Transvaginal Non-on 10-03-2024 Transvaginal Non- [facility] Imaging Services [address] [place] [address] Transvaginal Non- MR#: [id number] Acct: [id number] Name: CEDRIC HOPE Rep #: [id number] : 1995 F 29 From: Stacey Bella MD PCP: Dr. Alecia Rogers MD Status: REG CLI Study: Transvaginal Non- Date of Exam: Exam# [id number] Ordering Dr: Jordyn Carrillo CNM PROCEDURE: TRANSVAGINAL NON- (USTVAG), 10/03/2024 REASON FOR [...] 2. Additional description as above. Reading Location: [id number] CC: ZITA Carrillo; Dr. Alecia Rogers MD Print Journalist: Signed Normal [facility] Fishing Worker Office Visit Reporton 10-01-2024 Fishing Worker Office Visit Report [facility] [address], [address] [place] [address] OFFICE VISIT Date of Service: 10/01/24 MR#: [id number] Acct: [id number] Name: CEDRIC HOPE Rep #: [id number] : 1995 Provider: ZITA Morejon ams Age/Sex: 29/F Location: 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 Provider FOB 04/12/17 Sondra 40 live - full term 8lbs 14oz Female 23 hours epidural W CH RR Rui 10/01/21 Jelani 39 live - full term Male [facility] Ma rcanthony Delivery Date: 04/12/17 Last Updated by: Christine Ascencio AoD- failed induction; thick meconium- initially clear thick MSF by delivery Delivery Date: 10/01/21 Last Updated by: Leslie Gibbons RLTCS GDMA2 ROS Const Constitutional: Reports system reviewed [...] the urethra (more content not included)... [facility] Office Visit ([facility]WSTR ) CEDRIC HOPE ([id number]) 1995 F Date Time Provider Department 09/18/24 12:30 PM NICOLASA DICKENS [facility] During your visit today, we recorded the following information about you: Temperature Pulse Respiration Blood pressure 98.4 degrees 73/minute 16/minute 126/80 Weight 132.1 kg Nicolasa Dickens, [employer] DEVELOPER.PLANE CAPTAIN 09/18/2024 1:22 PM Signed [facility] Subjective Cedric Hope is a 29 year old female. HPI [...] mouth. (Patient not taking: Reported on 05/11/2022) Swuubeec-Bd-Yvn-Fe-FA ( VITAMIN) tab Take 1 tablet by [...] normal. Cardiovas (more content not included)... Normal [facility] STREP A MOLECULAR (POC)on Procedural Control Valid [facility] Strep A (POCT) Negative Negative [facility] Urgent Care Visit Reporton 0 09-18-2024 Urgent Care Visit Report [facility] [address], [address] [place], [place] [id number] OFFICE VISIT Date of Service: 09/18/24 MR#: [id number] Acct: [id number] Name: CEDRIC HOPE Rep #: [id number] : 1995 Provider: TESSIE Bajwa Age/Sex: 29/F Location: [facility] Status: Signed Intake Vital Signs 09/14/24 07:28 09/18/24 13:01 Height 5 ft 4 in 5 ft 4 in BP 98/72 Blood Pressure Location Lt brachial Position Sitting Respiration 16 Pulse 78 Pulse Source Monitor Temp 98.0 F Temp Source Oral Pulse Oximetry (%) 98 Oxygen Delivery Method room air Intake Visit Reasons: ST/SINUS PAIN/COUGH Chief Complaint: sore throat, sinus congestion, cough Benefits Representative Required: No Accompanied by: Self Is patient [...] current occupational status: employed 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 Has been working 3 days during [...] report) Co (more content not included)... Normal [facility] CNOVon 09-06-2024 CNOV Office Visit (UCWSTR ) CEDRIC HOPE ([id number]) 1995 F Date Time Provider Department 09/06/24 5:00 PM NICOLASA DICKENS [facility] During your visit today, we recorded the following information about you: Temperature Pulse Respiration Blood pressure 98.2 degrees 98/minute 16/minute 132/90 Weight 135.4 kg Nicolasa Dickens APRN.PLANE CAPTAIN 09/06/2024 5:26 PM Signed Subjective Cough Associated [...] mouth. (Patient not taking: Reported on 05/11/2022) Uminznhj-Ac-Xod-Fe-FA ( VITAMIN) tab Take 1 tablet by [...] Maxillary si (more content not included)... Normal [facility] Genital Culture Comprehensiv vania 08-23-2024 VAC Reason for Exam: vaginal irritation Normal vaginal hesham isolated. No yeast, Gardnerella, Neisseria or beta-hemolytic Streptococcus isolated. Normal [facility] Comment on above: Performed By: #### L 100.0100, L500.2500, L501.4021 #### [facility] Laboratory [address] [place], [address] Chlamydia/GC VINOD aptimaon CHLAMY,NUC ACID Negative Normal Negative [facility] Comment on above: Performed By: #### L 100.0100, L500.2500, L501.4021 #### [facility] [address] [place], [address] GC BY NUC ACID Negative Normal Negative [facility] Comment on above: Result Comment: Perf ormed at: =G - [facility] [address] AlbertoJack [place] [id number] Welding Machine Operator [employer]: Tanika Boyd MD, Phone: [phone] Performed By: #### L 100.0100, L500.2500, L501.4021 #### [facility] [address] [place], [place], [id number] Gram Stainon 08-20-2024 GS Reason for Exam: vaginal irritation Gram Stain 1+ Epithelial cells 3+ Gram positive rods No Gram negative diplococci Score = 1 Interpretation: 0-3 Normal, 4-6 Intermediate, 7-10 Positive BV Normal [facility] Comment on above: Performed By: #### L 100.0100, L5002500, H937.4028 #### [facility] [address] [place], [place], [address] Fishing Worker Office Visit Reporton 08-20-2024 Fishing Worker Office Visit Report [facility] [address], [address] [place] [address] OFFICE VISIT Date of Service: 08/20/24 MR#: [id number] Acct: [id number] Name: CEDRIC HOPE Rep #: [id number] : 1995 Provider: Dr. 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 Normal [facility] Genital Culture Comprehensiv vania 08-09-2024 VAC Reason for Exam: scr een Normal vaginal hesham isolated. No yeast, Gardnerella, Neisseria or beta-hemolytic Streptococcus isolated. Normal [facility] Comment on above: Performed By: #### L 100.0100, L500.2500, L501.4021 #### [facility] [address] [place], [address] Chlamydia/GC VINOD aptimaon CHLAMY,NUC ACID Negative Normal Negative [facility] Comment on above: Performed By: #### L 100.0100, L500.2500, L501.4021 #### [facility] [address] [place], [address] GC BY NUC ACID Negative Normal Negative [facility] Comment on above: Result Comment: Perf ormed at: =G - [facility] [address] [place] [id number] Welding Machine Operator [employer]: Tanika Boyd MD, Phone: [phone] Performed By: #### L 100.0100, L500.2500, L501.4021 #### [facility] [address] [place], [address] CBC-Complete Blood Cnt No Di ffon 08-06-2024 Erythrocyte distribution width (RBC) [Ratio] 16.1 % High 11.6-14.6 [facility] Comment on above: Performed By: #### L 500.4050, L100.0500, L501.9520, L500.4100, L506.1000 #### [facility] [address] [place], [address] Hematocrit (Bld) [Volume fraction] 38.3 % Normal 37-47 [facility] Comment on above: Performed By: #### L 500.4050, L100.0500, L501.9520, L500.4100, L506.1000 #### [facility] [address] [place], [address] Hemoglobin (Bld) [Mass/Vol] 11.6 g/dL Low 12.0-15.0 [facility] Comment on above: Performed By: #### L 500.4050, L100.0500, L501.9520, L500.4100, L506.1000 #### [facility] [address] [place], [address] MCH (RBC) [Entitic mass] 24.5 pg Low 27.0-32.0 [facility] Comment on above: Performed By: #### L 500.4050, L100.0500, L501.9520, L500.4100, L506.1000 #### [facility] [address] [place], [address] MCHC (RBC) [Mass/Vol] 30.3 g/dL Low 32-36 [facility] Comment on above: Performed By: #### L 500.4050, L100.0500, L501.9520, L500.4100, L506.1000 #### [facility] [address] [place], [address] MCV (RBC) [Entitic vol] 80.8 fL Low 81-99 [facility] Comment on above: Performed By: #### L 500.4050, L100.0500, L501.9520, L500.4100, L506.1000 #### [facility] [address] [place], [address] Platelet mean volume (Bld) [Entitic vol] 11.0 fL Normal 6.2-12.0 [facility] Comment on above: Performed By: #### L 500.4050, L100.0500, L501.9520, L500.4100, L506.1000 #### [facility] [address] [place], [address] Platelets (Bld) [#/Vol] 298 10*3/uL Normal 150-450 [facility] Comment on above: Performed By: #### L 500.4050, L100.0500, L501.9520, L500.4100, L506.1000 #### [facility] [address] [place], [address] RBC (Bld) [#/Vol] 4.74 10*6/uL Normal 4.2-5.4 [facility] Comment on above: Performed By: #### L 500.4050, L100.0500, L501.9520, L500.4100, L506.1000 #### [facility] [address] [place], [address] RDW SD 47.1 fl High 35.1-43.9 [facility] Comment on above: Performed By: #### L 500.4050, L100.0500, L501.9520, L500.4100, L506.1000 #### [facility] [address], [address] WBC (Bld) [#/Vol] 7.8 10*3/uL Normal 4.4-11.0 [facility] Comment on above: Performed By: #### L 500.4050, L100.0500, L501.9520, L500.4100, L506.1000 #### [facility] [address] [place], [address] Comprehensive Metabolic Prof ilon 08-06-2024 Albumin [Mass/Vol] 3.5 g/dL Normal 3.2-5.0 [facility] Comment on above: Performed By: #### L 500.4050, L100.0500, L501.9520, L500.4100, L506.1000 #### [facility] [address] [place], [address] Albumin/Globulin [Mass ratio] 0.8 {ratio} Low 0.9-2.4 [facility] Comment on above: Performed By: #### L 500.4050, L100.0500, L501.9520, L500.4100, L506.1000 #### [facility] [address] [place], [address] ALK P 97 U/L Normal 45-117 [facility] Comment on above: Performed By: #### L 500.4050, L100.0500, L501.9520, L500.4100, L506.1000 #### [facility] [address] [place], [address] ALT [Catalytic activity/Vol] 31 U/L Normal 13-56 [facility] Comment on above: Performed By: #### L 500.4050, L100.0500, L501.9520, L500.4100, L506.1000 #### [facility] [address] [place], [address] AST [Catalytic activity/Vol] 20 U/L Normal 15-37 [facility] Comment on above: Performed By: #### L 500.4050, L100.0500, L501.9520, L500.4100, L506.1000 #### [facility] [address] [place], [address] Bilirubin [Mass/Vol] 0.40 mg/dL Normal 0.20-1.00 [facility] Comment on above: Result Comment: For patients on eltrombopag therapy, use of Dimension [place] TBIL is not recommended. Performed By: #### L 500.4050, L100.0500, L501.9520, L500.4100, L506.1000 #### [facility] [address] [place], [address] BUN/CRE 10.9 RATIO Normal 10-20 [facility] Comment on above: Performed By: #### L 500.4050, L100.0500, L501.9520, L500.4100, L506.1000 #### [facility] [address] [place], [address] CA,Total 9.0 mg/dL Normal 8.5-10.1 [facility] Comment on above: Performed By: #### L 500.4050, L100.0500, L501.9520, L500.4100, L506.1000 #### [facility] [address] [place], [address] Chloride [Moles/Vol] 103 mmol/L Normal 98-107 [facility] Comment on above: Performed By: #### L 500.4050, L100.0500, L501.9520, L500.4100, L506.1000 #### [facility] [address] [place], [address] CO2 [Moles/Vol] 25.0 mmol/L Normal 21.0-32.0 [facility] Comment on above: Performed By: #### L 500.4050, L100.0500, L501.9520, L500.4100, L506.1000 #### [facility] [address] [place], [address] Creatinine [Mass/Vol] 0.82 mg/dL Normal 0.55-1.02 [facility] Comment on above: Result Comment: The validity of the calculated GFR GFRAA in patients over 70 years has not been determined. Clinical correlation is essential. Performed By: #### L 500.4050, L100.0500, L501.9520, L500.4100, L506.1000 #### [facility] [address] [place], [address] EST GFR - AA 107 mL/min Normal >60 [facility] Comment on above: Result Comment: Afri can [place] GFR Calc Performed By: #### L 500.4050, L100.0500, L501.9520, L500.4100, L506.1000 #### [facility] [address] [place], [address] GAP 8 Normal 5-15 [facility] Comment on above: Performed By: #### L 500.4050, L100.0500, L501.9520, L500.4100, L506.1000 #### [facility] [address] [place], [address] GFR/1.73 sq M.predicted among non-blacks MDRD (S/P/Bld) [Vol rate/Area] 88 mL/min/{1.73_m2} Normal >60 [facility] Comment on above: Result Comment: Non- GFR Calc Performed By: #### L 500.4050, L100.0500, L501.9520, L500.4100, L506.1000 #### [facility] [address] [place], [address] Globulin (S) [Mass/Vol] 4.5 g/dL High 2.2-4.2 [facility] Comment on above: Performed By: #### L 500.4050, L100.0500, L501.9520, L500.4100, L506.1000 #### [facility] [address] [place], [address] Glucose [Mass/Vol] 140 mg/dL High 74-106 [facility] Comment on above: Result Comment: Fast ing Glucose result greater than or equal to 126 mg/dL suggests DIABETES MELLITUS per A.D.A. criteria. Performed By: #### L 500.4050, L100.0500, L501.9520, L500.4100, L506.1000 #### [facility] [address] [place], [address] Potassium [Moles/Vol] 3.8 mmol/L Normal 3.5-5.1 [facility] Comment on above: Performed By: #### L 500.4050, L100.0500, L501.9520, L500.4100, L506.1000 #### [facility] [address] [place], [address] Sodium [Moles/Vol] 136 mmol/L Normal 136-145 [facility] Comment on above: Performed By: #### L 500.4050, L100.0500, L501.9520, L500.4100, L506.1000 #### [facility] [address] [place], [address] T PROT 8.0 g/dL Normal 6.4-8.2 [facility] Comment on above: Performed By: #### L 500.4050, L100.0500, L501.9520, L500.4100, L506.1000 #### [facility] [address] [place], [address] Urea nitrogen [Mass/Vol] 9 mg/dL Normal 7-18 [facility] Comment on above: Performed By: #### L 500.4050, L100.0500, L501.9520, L500.4100, L506.1000 #### [facility] [address] [place], [address] Gram Stainon 08-06-2024 GS Reason for Exam: scr een Gram Stain 4+ Gram positive rods No Gram negative diplococci 1+ Epithelial cells Score = 0 Interpretation: 0-3 Normal, 4-6 Intermediate, 7-10 Positive BV Normal [facility] Comment on above: Performed By: #### L 100.0100, L500.2500, L501.4021 #### [facility] [address] [place], [address] Lipid Profileon 08-06-2024 Cholesterol [Mass/Vol] 163 mg/dL Normal 200 [facility] Comment on above: Result Comment: <200 mg/dL Desirable 200-240 mg/dL Borderline >240 mg/dL High Risk Performed By: #### L 500.4050, L100.0500, L501.9520, L500.4100, L506.1000 #### [facility] [address] [place], [address] Cholesterol in HDL [Mass/Vol] 47 mg/dL Normal [facility] Comment on above: Result Comment: The drugs N-Acetylcysteine and Metamizole may falsely depress this assay. Reference Range HDL <40 mg/dL Low HDL Cholesterol HDL >or= 60 mg/dL High HDL Cholesterol Performed By: #### L 500.4050, L100.0500, L501.9520, L500.4100, L506.1000 #### [facility] [address] [place], [address] Cholesterol in LDL [Mass/Vol] 97 mg/dL Normal 0-130 [facility] Comment on above: Performed By: #### L 500.4050, L100.0500, L501.9520, L500.4100, L506.1000 #### [facility] [address] [place], [address] Cholesterol in VLDL [Mass/Vol] 19 mg/dL Normal 5-40 [facility] Comment on above: Performed By: #### L 500.4050, L100.0500, L501.9520, L500.4100, L506.1000 #### [facility] [address] [place], [address] Triglyceride [Mass/Vol] 97 mg/dL Normal [facility] Comment on above: Result Comment: The drugs N-Acetylcysteine and Metamizole may falsely depress this assay. Serum Triglycerides Reference Interval Normal <150 mg/dL Borderline high 150 - 199 mg/dL High 200 - 499 mg/dL Very High > or = 500 mg/dL Performed By: #### L 500.4050, L100.0500, L501.9520, L500.4100, L506.1000 #### [facility] [address] [place], [address] Fishing Worker Office Visit Reporton 08-06-2024 Fishing Worker Office Visit Report [facility]'s [address], [address] [place] [address] OFFICE VISIT Date of Service: 08/06/24 MR#: [id number] Acct: [id number] Name: CEDRIC HOPE Rep #: [id number] : 1995 Provider: Dr. 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 Normal [facility] Thyroid Stim Hormone (TSH)on 08-06-2024 TSH 1.950 uIU/mL Normal 0.358-3.740 [facility] Comment on above: Performed By: #### L 500.4050, L100.0500, L501.9520, L500.4100, L506.1000 ####[facility] [id number] [place], [address] Vitamin D,25 Hydroxyon 08-06 Vitamin D 25-OH 60.0 ng/mL Normal [facility] Comment on above: Result Comment: Genie min D 25(OH) Status Range Deficiency <20 ng/mL (50nmol/L) Insufficiency 20 - 30 ng/mL (50 - 75 nmol/L) Sufficiency 30 - 100 ng/mL (75 - 250 nmol/L) Toxicity >100 ng/mL (>250 nmol/L) Performed By: #### L 500.4050, L100.0500, L501.9520, L500.4100, L506.1000 ####[facility] [address] [place], [address] [facility]05[facility] [facility] Telephone ([facility]) CEDRIC HOPE ([id number]) 1995 F Date Time Provider Department 08/05/24 VAISHALI JUDGE [facility] During your visit today, we recorded the following information about you: Vaishali Judge APRN.CNP 08/05/2024 8:16 AM Signed Please advise patient [...] sodium (COLACE ORAL) Take by mouth. - Huetcree-Xe-Lmf-Fe-FA ( VITAMIN) tab Take 1 tablet by [...] Encounter Status:Closed by [facility] CEDRIC HOPE ([id number]) 1995 F Date Time Provider Department 08/05/24 VAISHALI JUDGE [facility] During your visit today, we recorded the following information about you: Vaishali Judge APRN.PLANE CAPTAIN 08/05/2024 8:15 AM Signed Please advise of [...] sodium (COLACE ORAL) Take by mouth. - Lohvzbrq-Io-Voq-Fe-FA ( VITAMIN) tab Take 1 tablet by [...] Encounter Status:Closed by VAISHALI JUDGE on 08/05/24 [facility] CNOVon 08-03-2024 CNOV Office Visit ([facility] ) CEDRIC HOPE ([id number]) 1995 F Date Time Provider Department 08/03/24 10:15 AM VAISHALI JUDGE [facility] During your visit today, we recorded the following information about you: Temperature Pulse Respiration Blood pressure 98.4 degrees 91/minute 21/minute 132/78 Weight 133.9 kg Yury White APRN.PLANE CAPTAIN 08/03/2024 11:06 AM Signed CC: Patient presents [...] mouth. (Patient not taking: Reported on 05/11/2022) Tigfwmrw-Pr-Rdk-Fe-FA ( VITAMIN) tab Take 1 tablet by [...] status: N (more content not included)... Normal [facility] COVID AND INFLUENZA A/B AND RSV PCR, ROUTINEon 08-03-2024 SARS-CoV-2 (COVID-19) RNA VINOD+probe Ql (Unsp spec) SARS-COV-2 (AGENT OF COVID-19) RNA: Not detected INFLUENZA A RNA: Not detected INFLUENZA B RNA: Not detected RESPIRATORY SYNCYTIAL VIRUS (RSV) RNA: Not detected Normal [facility] Comment on above: Performed By: #### C VFLRS ####[facility] LABCLIA [id number] [address] [place] STREP A MOLECULAR (POC)on Procedural Control Valid [facility] Strep A (POCT) Negative Negative [facility] CNPNon 2024 CNPN Telephone (UCTR) JAYYCEDRIC ([id number]) 1995 F Date Time Provider Department 07/20/24 KATIE HENSON [facility] During your visit today, we recorded the following information about you: Katie Henson PA 2024 5:56 PM Signed Please contact patient and let her know urine culture reveals no UTI. Follow-up with PCP for persistent symptoms Deborah Keys MA 2024 7:25 PM Signed Patient has viewed all results on Nubity. Deborah Keys MA Allergies As of Date: [...] sodium (COLACE ORAL) Take by mouth. 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 Reports she tried to take the Vraylar but it was making her sick to her stomach no matter what she was eating. [place] it was making her feel more fatigued while she was taking it. Did feel it was providing some benefit but the side effects were intolerable. Reports her mood and anxiety have been well managed. Admits to feeling depressed more than half the time. Denies SI/HI. Is planning to go to [place] for dinner with her friends and then is going out for drinks in [place] for her birthday today. Reports that she [...] bruising Allergic/Immunolo (more content not included)... Normal [facility] BACTERIAL VAGINOSIS NAATon 0 07-19-2024 Lactobacillus crispatus+gasseri+ jensenii + Gardnerella vaginalis + Atopobium vaginae rRNA VINOD+probe Ql (Vag fld) Not detected Normal Not detected [facility] Comment on above: Order Comment: Speci men Type: SWABOrdering Facility: [facility] Address: [address] [place] [address] Performed By: #### 3 6902-5, BVAMP ####[facility] LABCLIA [id number] [place] [address] [place] Bacteria Ur Culton [...] technique or straight catheterization for???urine???collectio n. Normal [facility] Comment on above: Performed By: #### 6 30-4 ####[facility] LABCLIA [id number] [place] [address] [place] C. trachomatis+N. gonorrhoea e DNA VINOD+probe Ql (Unsp spec)on 07-19-2024 C. trachomatis rRNA VINOD+probe Ql (Unsp spec) Not detected Normal Not detected [facility] Comment on above: Order Comment: Speci men Type: SWABOrdering Facility: [facility] Address: [address] [place] [address] Performed By: #### 3 6902-5, BVAMP ####[facility] LABCLIA [id number] [place] [address] [place] N. gonorrhoeae rRNA VINOD+probe Ql (Unsp spec) Not detected Normal Not detected [facility] Comment on above: Order Comment: Speci men Type: SWABOrdering Facility: [facility] Address: [address] [place] [address] Performed By: #### 3 6902-5, BVAMP ####[facility] LABCLIA [id number] [place] [address] [place] CHRISSIE/TRICHOMONAS NAATon 0 07-19-2024 C. glabrata RNA VINOD+probe Ql (Vag fld) Not detected Normal Not detected [facility] Comment on above: Order Comment: Speci men Type: SWAB Ordering Facility: [facility] Address: [address] [place] [address] Performed By: #### B VAMP, 28578-7 #### [facility] CLIA [id number] [address] [place] [address] [place] Chrissie sp DNA VINOD+probe Ql (Vag fld) Not detected Normal Not detected [facility] Comment on above: Order Comment: Speci men Type: SWAB Ordering Facility: [facility] Address: [address] [place] [address] Result Comment: The Chrissie species group target includes C. albicans, C. tropicalis, C. parapsilosis, and C. dubliniensis. Performed By: #### B VAMP, 60179-6 #### [facility] CLIA [id number] [address] [place] [address] [place] T. vaginalis DNA VINOD+probe Ql (Unsp spec) Not detected Normal Not detected [facility] Comment on above: Order Comment: Speci men Type: SWAB Ordering Facility: [facility] Address: [address] [place] [address] Performed By: #### B VAMP, 10890-4 #### [facility] CLIA [id number] STATES OF [facility] CNOVon 07-19-2024 CNOV Office Visit ([facility] ) CEDRIC HOPE ([id number]) 1995 F Date Time Provider Department 07/19/24 6:15 PM KISHORE RODRÍGUEZ [facility] During your visit today, we recorded the following information about you: Temperature Pulse Respiration Blood pressure 98.7 degrees 97/minute 18/minute 134/77 Last Period 07/05/24 Kishore Rodríguez APRN.PLANE CAPTAIN 07/19/2024 6:54 PM Signed Subjective HPI A nontoxic appearing female presents to urgent care with chief complaint of possible UTI. Duration of symptoms 3 days. Associated symptoms dysuria, frequency, and urgency. Patient has history of UTIs in past with similar signs and symptoms. Patient denies the use of any uphs-zga-clzyykj medications or home remedies for symptom management. [...] mouth. (Patient not taking: Reported on 05/11/2022) Mrudcxll-Db-Gih-Fe-FA ( VITAMIN) tab Take 1 tablet by [...] bulging. Mouth/Throat: (more content not included)... Normal [facility] UA DIP, URINE (POC)on 2024 BILIRUBIN UA (POCT) Negative Negative [facility] CLARITY UA (POCT) Clear [facility] COLOR UA (POCT) Yellow [facility] GLUCOSE UA (POCT) Negative Negative mg/dL [facility] Hemoglobin Ql (U) Negative Negative [facility] Interpretation and review of laboratory results Abnormal [facility] KETONE UA (POCT) Negative Negative mg/dL [facility] LEUKOCYTES UA (POCT) Negative Negative [facility] NITRITE UA (POCT) Negative Negative [facility] PH UA (POCT) 5.5 4.5 - 8.0 [facility] Protein Ql (U) 30 mg/dL Abnormal Negative [facility] SPECIFIC GRAVITY UA (POCT) >=1.030 1.005 - 1.030 [facility] UROBILINOGEN UA (POCT) 0.2 Normal E.U./dL [facility] Location:[facility], [address] [place] [address], [place], [address] [facility] POINT OF CARE [facility] CNOVon 07-07-2024 CNOV Office Visit ([facility] ) CEDRIC HOPE ([id number]) 1995 F Date Time Provider Department 07/07/24 9:45 AM NICOLASA DICKENS [facility] During your visit today, we recorded the following information about you: Temperature Pulse Respiration Blood pressure 98.6 degrees 91/minute 18/minute 122/84 Weight 132.5 kg Nicolasa Dickens, LEATHA.[facility] 07/07/2024 9:56 AM Signed Subjective Sore [...] mouth. (Patient not taking: Reported on 05/11/2022) Yjqcnmcp-Bg-Upa-Fe-FA ( VITAMIN) tab Take 1 tablet by [...] not included)... Normal [facility] 07-06-[address] [facility] CEDRIC HOPE ([id number]) 1995 F Date Time Provider Department 07/06/24 APPLE FOSTER [facility] During your visit today, we recorded the following information about you: Apple Foster APRN.CNP 07/06/2024 7:12 AM Signed Please notify that [...] sodium (COLACE ORAL) Take by mouth. - Chwdlhxp-Nr-Tdd-Fe-FA ( VITAMIN) tab Take 1 tablet by [...] Encounter Status:Closed by DEBORAH KEYS on 07/06/24 Normal [facility] CNOVon 07-05-2024 CNOV Office Visit ([facility] ) CEDRIC HOPE ([id number]) 1995 F Date Time Provider Department 07/05/24 5:15 PM YURY WHITE [facility] During your visit today, we recorded the following information about you: Temperature Pulse Respiration Blood pressure 99.3 degrees 92/minute 18/minute 131/84 Weight 132.8 kg Yury White APRN.PLANE CAPTAIN 07/05/2024 5:56 PM Signed CC: Patient presents [...] mouth. (Patient not taking: Reported on 05/11/2022) Eyhwlulj-Vv-Olo-Fe-FA ( VITAMIN) tab Take 1 tablet by [...] Patient agreea (more content not included)... Normal [facility] COVID AND INFLUENZA A/B AND RSV PCR, ROUTINEon 07-05-2024 SARS-CoV-2 (COVID-19) RNA VINOD+probe Ql (Unsp spec) SARS-COV-2 (AGENT OF COVID-19) RNA: Not detected INFLUENZA A RNA: Not detected INFLUENZA B RNA: Not detected RESPIRATORY SYNCYTIAL VIRUS (RSV) RNA: Not detected Normal [facility] Comment on above: Performed By: #### C VFLRS ####[facility] LABCLIA [id number] [place] [address] [place] STREP A MOLECULAR (POC)on Procedural Control Valid [facility] Strep A (POCT) Negative Negative [facility] MR/BMS.BPon 06-28-2024 MR/BMS.[address] [place] [address] OFFICE VISIT Date of Service: 06/28/24 MR#: [id number] Acct: [id number] Name: CEDRIC HOPE Rep #: [id number] : 1995 Provider: JANEL jaffe Age/Sex: 28/F Location: [facility].BP Status: Signed Intake Vital Signs 06/05/24 17:29 [...] family current occupational status: employed 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 Is starting the IOP program for [facility]. Admits to having a difficult time [...] with her friends and have a slumber constitution party with her friends while her children are with their fathers. Does report some feelings of guilt about having to remove her daughter from her previous elementary and send her to a [employer] as she was doing well [...] visual he (more content not included)... Normal [facility] BACTERIAL VAGINOSIS NAATon 1 08-06-2023 Lactobacillus crispatus+gasseri+ jensenii + Gardnerella vaginalis + Atopobium vaginae rRNA VINOD+probe Ql (Vag fld) Not detected Normal Not detected [facility] Comment on above: Order Comment: Speci men Type: SWAB Ordering Facility: [facility] Address: [address] [place] [address] Performed By: #### C VTV #### [facility] CLIA [id number] [address] [place] [address] [place] Bacteria Ur Culton Bacteria identified Cx Nom (U) ORGANISM ID: 1 10,000 -<50,000 CFU/ml Normal urogenital hesham Normal [facility] Comment on above: Performed By: #### 6 30-4 ####[facility] LABCLIA [id number] [place] [address] [place] C. trachomatis+N. gonorrhoea e DNA VINOD+probe Ql (Unsp spec)on 06-06-2024 C. trachomatis rRNA VINOD+probe Ql (Unsp spec) Not detected Normal Not detected [facility] Comment on above: Order Comment: Speci men Type: SWAB Ordering Facility: [facility] Address: [address] [place] [address] Performed By: #### B VAMP, 19102-9 #### [facility] CLIA [id number] [address] [place] [address] [place] N. gonorrhoeae rRNA VINOD+probe Ql (Unsp spec) Not detected Normal Not detected [facility] Comment on above: Order Comment: Speci men Type: SWAB Ordering Facility: [facility] Address: [address] [place] [address] Performed By: #### B LEIDY, 32980-0 #### [facility] CLIA [id number] [address] [place] [address] [place] CHRISSIE/TRICHOMONAS NAATon 1 08-06-2023 C. glabrata RNA VINOD+probe Ql (Vag fld) Not detected Normal Not detected [facility] Comment on above: Order Comment: Speci men Type: SWABOrdering Facility: [facility] Address: [address] [place] [address] Performed By: #### C VTV ####[facility] LABCLIA [id number] [address] [place] Chrissie sp DNA VINOD+probe Ql (Vag fld) Not detected Normal Not detected [facility] Comment on above: Order Comment: Speci men Type: SWABOrdering Facility: [facility] Address: [address] [place] [address] Result Comment: The Chrissie species group target includes C. albicans, C. tropicalis, C. parapsilosis, and C. dubliniensis. Performed By: #### C VTV ####[facility] LABCLIA [id number] [address] [place] T. vaginalis DNA VINOD+probe Ql (Unsp spec) Not detected Normal Not detected [facility] Comment on above: Order Comment: Speci men Type: SWABOrdering Facility: [facility] Address: [address] [place] [address] Performed By: #### C VTV ####[facility] LABCLIA [id number] [place] [address] [place] CNOVon 06-06-2024 CNOV Office Visit ([facility] ) CEDRIC HOPE ([id number]) 1995 F Date Time Provider Department 06/06/24 1:00 PM VAISHALI JUDGEWSTR During your visit today, we recorded the following information about you: Temperature Pulse Respiration Blood pressure 98.5 degrees 97/minute 18/minute 136/70 Weight 134.5 kg Vaishali Judge APRN.PLANE CAPTAIN 06/06/2024 1:40 PM Signed This note was created using [employer]. Subjective Cedric Hope is a 28 year [...] history is provided by the patient. No thumb sewer was used. URI She complains of cough, [...] mouth. (Patient not taking: Reported on 05/11/2022) Seqwgmrq-Ur-Lip-Fe-FA ( VITAMIN) tab Take 1 tablet by [...] other ( (more content not included)... Normal [facility] UA DIP, URINE (POC)on 2023 BILIRUBIN UA (POCT) Negative Negative [facility] CLARITY UA (POCT) Clear [facility] COLOR UA (POCT) Yellow [facility] GLUCOSE UA (POCT) Negative Negative mg/dL [facility] Hemoglobin Ql (U) Negative Negative [facility] Interpretation and review of laboratory results Abnormal [facility] KETONE UA (POCT) Trace Negative mg/dL [facility] LEUKOCYTES UA (POCT) Negative Negative [facility] NITRITE UA (POCT) Negative Negative [facility] PH UA (POCT) 7.0 4.5 - 8.0 [facility] Protein Ql (U) Trace Abnormal Negative mg/dL [facility] SPECIFIC GRAVITY UA (POCT) 1.025 1.005 - 1.030 [facility] UROBILINOGEN UA (POCT) 0.2 Normal E.U./dL [facility] Location:[address], [place], [place], [id number] [place] [address] POINT OF CARE [facility] XR CHEST 2V FRONTAL/LATon XR CHEST [...] tissues: Unremarkable. IMPRESSION: No acute radiographic abnormality. Print Journalist: [facility] Transcribe Date/Time: Jun 06 2024 1:21P Dictated by : SARIKA BENSON MD This examination was interpreted and the report reviewed and electronically signed by: SARIKA BENSON MD on Jun 06 2024 1:21PM EST [id number] Normal [facility] XR Chest PA and Lateralon IMPRESSION: No acute radiographic abnormality. Print Journalist: [facility] Transcribe Date/Time: Jun 06 2024 1:21P Dictated [...] soft tissues: Unremarkable. DIVISION OF RADIOLOGY Provider, [facility] - 06/06/2024 * * *Final [...] Unremarkable. IMPRESSION IMPRESSION: No acute radiographic abnormality. Print Journalist: [facility] Transcribe Date/Time: Jun 06 2024 1:21P Dictated by : SARIKA BENSON MD This examination was interpreted and the report reviewed and electronically signed by: SARIKA BENSON MD on Jun 06 2024 1:21PM EST [facility] Radiology Study observation (narrative) [facility] XR Chest PA and LateralOrder ed By: Ccf Provider on 06-06-2024 [facility] 12 Lead EKGon 06-05-2024 12 Lead EKG [facility] Cardiovascular Services [address] [place] [address] 12 Lead EKG 06/05/24 1804 MR#: [id number] Acct: [id number] Name: CEDRIC HOPE Rep #: [id number] : 1995 28 From: Papa Cordero MD [...] ECG Confirmed by PAPA CORDERO MD ([id number]), slot editor BANDAR DAWSON ([id number]) on 06/06/2024 8:18:46 AM Referred By: Confirmed By: PAPA CORDERO MD 06/06/24 0818 Date Papa Cordero MD CC: Dr. Alecia Rogers MD; Dr. Spencer Dawson MD Signed Normal [facility] Basic Metabolic Profile (BMP )on 06-05-2024 BUN/CRE 20.9 RATIO High 10-20 [facility] Comment on above: Order Comment: 'TROP ' Serial specimen #1, #2 or #3: 1 Performed By: #### L 100.0100, L500.2500, L501.4021 #### [facility] [address] [place], [address] CA,Total 8.9 mg/dL Normal 8.5-10.1 [facility] Comment on above: Order Comment: 'TROP ' Serial specimen #1, #2 or #3: 1 Performed By: #### L 100.0100, L500.2500, L501.4021 #### [facility] [address] [place], [address] Chloride [Moles/Vol] 106 mmol/L Normal 98-107 [facility] Comment on above: Order Comment: 'TROP ' Serial specimen #1, #2 or #3: 1 Performed By: #### L 100.0100, L500.2500, L501.4021 #### [facility] [address] [place], [address] CO2 [Moles/Vol] 29.0 mmol/L Normal 21.0-32.0 [facility] Comment on above: Order Comment: 'TROP ' Serial specimen #1, #2 or #3: 1 Performed By: #### L 100.0100, L500.2500, L501.4021 #### [facility] [address] [place], [address] Creatinine [Mass/Vol] 0.67 mg/dL Normal 0.55-1.02 [facility] Comment on above: Order Comment: 'TROP ' Serial specimen #1, #2 or #3: 1 Result Comment: The validity of the calculated GFR GFRAA in patients over 70 years has not been determined. Clinical correlation is essential. Performed By: #### L 100.0100, L500.2500, L501.4021 #### [facility] [address] [place], [address] ECRCL 172.23 ml/min Normal [facility] Comment on above: Order Comment: 'TROP ' Serial specimen #1, #2 or #3: 1 Performed By: #### L 100.0100, L500.2500, L501.4021 #### [facility] [address] [place], [address] EST GFR - AA 136 mL/min Normal >60 [facility] Comment on above: Order Comment: 'TROP ' Serial specimen #1, #2 or #3: 1 Result Comment: Afri can [place] GFR Calc Performed By: #### L 100.0100, L500.2500, L501.4021 #### [facility] [address] [place], [address] GAP 7 Normal 5-15 [facility] Comment on above: Order Comment: 'TROP ' Serial specimen #1, #2 or #3: 1 Performed By: #### L 100.0100, L500.2500, L501.4021 #### [facility] [address] [place], [address] GFR/1.73 sq M.predicted among non-blacks MDRD (S/P/Bld) [Vol rate/Area] 112 mL/min/{1.73_m2} Normal >60 [facility] Comment on above: Order Comment: 'TROP ' Serial specimen #1, #2 or #3: 1 Result Comment: Non- GFR Calc Performed By: #### L 100.0100, L500.2500, L501.4021 #### [facility] [address] [place], [address] Glucose [Mass/Vol] 110 mg/dL High 74-106 [facility] Comment on above: Order Comment: 'TROP ' Serial specimen #1, #2 or #3: 1 Result Comment: Fast ing Glucose result from 100 to 125 mg/dL suggests IMPAIRED HOMEOSTASIS per A.D.A. criteria. Performed By: #### L 100.0100, L500.2500, L501.4021 #### [facility] [address] [place], [address] Potassium [Moles/Vol] 3.6 mmol/L Normal 3.5-5.1 [facility] Comment on above: Order Comment: 'TROP ' Serial specimen #1, #2 or #3: 1 Performed By: #### L 100.0100, L500.2500, L501.4021 #### [facility] [address] [place], [address] Sodium [Moles/Vol] 141 mmol/L Normal 136-145 [facility] Comment on above: Order Comment: 'TROP ' Serial specimen #1, #2 or #3: 1 Performed By: #### L 100.0100, L500.2500, L501.4021 #### [facility] [address] [place], [address] Urea nitrogen [Mass/Vol] 14 mg/dL Normal 7-18 [facility] Comment on above: Order Comment: 'TROP ' Serial specimen #1, #2 or #3: 1 Performed By: #### L 100.0100, L500.2500, L501.4021 #### [facility] [address] [place], [address] CBC W/Diff, Automatedon 11 Absolute Lymph 2.05 X10 3/uL Normal 0.83-4.51 [facility] Comment on above: Performed By: #### L 100.0100, L500.2500, L501.4021 #### [facility] [address] [place], [address] Absolute Neut 6.5 X10 3/uL Normal 2.0-7.7 [facility] Comment on above: Performed By: #### L 100.0100, L500.2500, L501.4021 #### [facility] [address] [place], [address] Basophils/100 WBC (Bld) 0.4 % Normal 0-1 [facility] Comment on above: Performed By: #### L 100.0100, L500.2500, L501.4021 #### [facility] [address] [place], [address] Eosinophils/100 WBC (Bld) 2.0 % Normal 0-5 [facility] Comment on above: Performed By: #### L 100.0100, L500.2500, L501.4021 #### [facility] [address] [place], [address] Erythrocyte distribution width (RBC) [Ratio] 15.8 % High 11.6-14.6 [facility] Comment on above: Performed By: #### L 100.0100, L500.2500, L501.4021 #### [facility] [address] [place], [address] Hematocrit (Bld) [Volume fraction] 38.1 % Normal 37-47 [facility] Comment on above: Performed By: #### L 100.0100, L500.2500, L501.4021 #### [facility] [address] [place], [address] Hemoglobin (Bld) [Mass/Vol] 11.9 g/dL Low 12.0-15.0 [facility] Comment on above: Performed By: #### L 100.0100, L500.2500, L501.4021 #### [facility] [address] [place], [address] IG% 0.400 Normal 0.0-0.9 [facility] Comment on above: Result Comment: IG% - Immature Granulocytes (promyelocytes, myelocytes and metamyelocytes) > 1% indicates that a LEFT SHIFT is Present. Performed By: #### L 100.0100, L500.2500, L501.4021 #### [facility] [address] [place], [address] Lymphocytes/100 WBC (Bld) 22.0 % Normal 19-41 [facility] Comment on above: Performed By: #### L 100.0100, L500.2500, L501.4021 #### [facility] [address] [place], [address] MCH (RBC) [Entitic mass] 24.6 pg Low 27.0-32.0 [facility] Comment on above: Performed By: #### L 100.0100, L500.2500, L501.4021 #### [facility] [address] [place], [address] MCHC (RBC) [Mass/Vol] 31.2 g/dL Low 32-36 [facility] Comment on above: Performed By: #### L 100.0100, L500.2500, L501.4021 #### [facility] [address] [place], [address] MCV (RBC) [Entitic vol] 78.7 fL Low 81-99 [facility] Comment on above: Performed By: #### L 100.0100, L500.2500, L501.4021 #### [facility] [address] [place], [address] Monocytes/100 WBC (Bld) 5.3 % Normal 0-10 [facility] Comment on above: Performed By: #### L 100.0100, L500.2500, L501.4021 #### [facility] [address] [place], [address] Neutrophils/100 WBC (Bld) 69.9 % Normal 47-70 [facility] Comment on above: Performed By: #### L 100.0100, L500.2500, L501.4021 #### [facility] [address] [place], [address] Nucleated RBC (Bld) [#/Vol] 0 10*3/uL Normal 0-5 [facility] Comment on above: Performed By: #### L 100.0100, L500.2500, L501.4021 #### [facility] [address] [place], [address] Platelet mean volume (Bld) [Entitic vol] 10.3 fL Normal 6.2-12.0 [facility] Comment on above: Performed By: #### L 100.0100, L500.2500, L501.4021 #### [facility] [address] [place], [address] Platelets (Bld) [#/Vol] 287 10*3/uL Normal 150-450 [facility] Comment on above: Performed By: #### L 100.0100, L500.2500, L501.4021 #### [facility] [address] [place], [address] RBC (Bld) [#/Vol] 4.84 10*6/uL Normal 4.2-5.4 [facility] Comment on above: Performed By: #### L 100.0100, L500.2500, L501.4021 #### [facility] [address] [place], [address] RDW SD 44.4 fl High 35.1-43.9 [facility] Comment on above: Performed By: #### L 100.0100, L500.2500, L501.4021 #### [facility] [address] [place], [address] WBC (Bld) [#/Vol] 9.3 10*3/uL Normal 4.4-11.0 [facility] Comment on above: Performed By: #### L 100.0100, L500.2500, L501.4021 #### [facility] [address] [place], [address] Chest 1 View (Portable)on Chest 1 View (Portable) [facility] Imaging Services [address] [place] [address] Chest 1 View (Portable) MR#: [id number] Acct: [id number] Name: CEDRIC HOPE Rep #: [id number] : 1995 F 28 From: Kishore Willams MD PCP: Dr. Alecia Rogers MD Status: PRE ER Study: Chest 1 View (Portable) Date of Exam: 06/05/24 Exam# [id number] Ordering [place]: [place] [id number] STUDY: X-RAY CHEST REASON FOR EXAM: Female, [...] Alecia Rogers MD; Dr. 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 Palpitations. [...] cords. Calves (more content not included)... Normal [facility] L501.4020on 06-05-2024 TROPONIN-I HS 4 pg/mL Normal 3.0-54.0 [facility] Comment on above: Order Comment: 'TROP ' Serial specimen #1, #2 or #3: 1 Result Comment: Sandhya travis Note: New Test Units and Gender Specific Reference Ranges. For more information see Policy Stat Procedure [place] High Sensitivity Troponin (TNIH) and attachments. Performed By: #### L 100.0100, L500.2500, L501.4021 #### [facility] [address] 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 Normal [facility] ED Prov Noteon 03-12-2024 ED Prov Note HPI: 03/12/2024, Time: @NOWNR@ [place] Roberto Hope is a 28 y.o. female [...] are negative. PAST HISTORY Past Medical History: @[facility]@ Past Surgical History: has a past [...] 3 days . Follow-up: Alecia Rogers MD [address] [facility] [id number] In 3 days Final Impression: 1. Peripheral edema 2. Venous insufficiency (Please note that portions of this note were completed with a voice recognition program. Efforts were made to edit the dictations but occasionally words are mis-transcribed.) Stacey Shukla MD 03/12/24 1841 AUTHENTICATED BY STACEY SHUKLA, ON 03/12/2024 18:41:42 [facility] ED Prov Noteon 02-23-2024 ED Prov Note ED PROVIDER NOTE [facility] EMERGENCY DEPARTMENT NAME: Cedric Hope AGE: 28 y.o. : 1995 VISIT DATE: 02/23/2024 CSN: [id number] PCP: Alecia Rogers MD Chief Complaint Patient [...] nursing note reviewed. Exam conducted with a commercial crabber present. Constitutional: Appearance: She is obese. HENT: [...] radiolucent foreign body identified with plain-film evaluation. [employer] Workstation ID: [id number] Procedures Medical Decision Making [...] care in stable condition. Follow-up Information 1. Alecia Rogers MD. Specialty: Internal Medicine [address] [place] [phone] Contact information for after-discharge care Follow-up information has not been specified. Bello Fish MD 02/24/24 0005 AUTHENTICATED BY BELLO FISH, ON 02/24/2024 00:05:03 [facility] XR SOFT TISSUE NECKon 2023 XR SOFT [...] radiolucent foreign body identified with plain-film evaluation. DPR/vrs Workstation ID: [id number] Dictated by: CLARICE MABRY on TueFeb 23, 2024 9:58:37 PM EDT Transcribed by: DAVEY VILLALOBOS on Chata Feb 23, 2024 10:02:53 PM EDT Finalized by: CLARICE MABRY on Ch[place] Feb 23, 2024 10:16:43 PM EDT [facility] Comment on above: Order Comment: Injur y/Trauma or Illness?:Injury/Trauma How long have you had these symptoms (acute/chronic)?:Acute Reason for exam?:patient possibly swallowed a prong off a plastic fork History of cancer?:n Surgeries, chemotherapy, or radiation?:, gallbladder Type of Exam?:Initial Mechanism of injury?:patient possibly swallowed a prong off a plastic fork XR SACRUM AND COCCYX 2+ VIEW Son [...] ID: [id number] Dictated by: ELICIA BASSETT on [place] May 08, 2023 3:10:55 PM EDT Transcribed by: ELICIA BASSETT on Fleming May 08, 2023 3:10:55 PM EDT Finalized by: ELICIA BASSETT on Fleming May 08, 2023 3:10:55 PM EDT [facility] Comment on above: Order Comment: Injur y/Trauma or Illness?:Injury/Trauma How long have you had these symptoms (acute/chronic)?:Acute Reason for exam?:Pt fell off a bench yesterday has pain in the tailbone History of cancer?:n Surgeries, chemotherapy, or radiation?:n Type of Exam?:Initial Mechanism of injury?:fall STREP A MOLECULAR (POC)on Procedural Control Valid [facility] Strep A (POCT) Negative Negative [facility] XR Chest PA and Lateralon IMPRESSION: No acute radiographic abnormality. Print Journalist: PSCB Transcribe Date/Time: Oct 07 2021 7:53P Dictated by : CINDY DE LA TORRE MD This examination was interpreted and the report reviewed and electronically signed by: CINDY DE LA TORRE MD on Oct 07 2021 7:53PM [facility] DIVISION OF RADIOLOGY * * *Final Report* [...] soft tissues: Unremarkable. DIVISION OF RADIOLOGY Provider, [facility] - 10/07/2021 * * *Final Report* * [...] Unremarkable. IMPRESSION IMPRESSION: No acute radiographic abnormality. Print Journalist: ABEBA Transcribe Date/Time: Oct 07 2021 7:53P Dictated by : CINDY DE LA TORRE MD This examination was interpreted and the report reviewed and electronically signed by: CINDY DE LA TORRE MD on Oct 07 2021 7:53PM EST [facility] Radiology Study observation (narrative) [facility] XR Chest PA and LateralOrder ed By: [facility]cf Provider on 10-07-2021 [facility] NOVEL CORONAVIRUS NASOPHARYN GEAL - [facility] SPECIMEN ONLYon 02-25-2020 SARS-COV-2 NOT DETECTED Normal NOT DETECTED [facility] Comment on above: Order Comment: Submi tter [...] or clinically deteriorating. Performed By: #### L [id number] #### [facility] (DEFAULT) [address] [place] [address] Office Visit: UC: karan linares t/ hernia checkon 06-19-2017 Documentation of current medications (procedure) Done Invalid Interpretation Code [facility] Now [facility] Work Phone: Fall risk assessment No Invalid Interpretation Code [facility] Work Phone: Rapid strep test Negative Invalid Interpretation Code [facility] Work Phone: Tobacco smoking status NHIS Never Invalid Interpretation Code [facility] Work Phone: Tobacco smoking status NHIS Tobacco smoking status NHIS Invalid Interpretation Code [facility] Work Phone: Vital Signs Date Time Vital Sign Value Performing Clinician Facility 12-09-2024 10:39-0400 Body height 160 cm Nicolasa Praisler-Wood [employer]EL[employer].[facility] Work Phone: [facility] 12-09-2024 10:39-0400 Body mass index (BMI) [Ratio] 52.68 kg/m2 Nicolasa Praisler-Wood [employer]EL[employer].[facility] Work Phone: [facility] 12-09-2024 10:39-0400 Body temperature 98.1 [degF] Nicolasa Praisler-Wood [employer] Work Phone: [facility] 12-09-2024 10:39-0400 Body weight 134.9 kg Nicolasa Praisler-Wood [employer] Work Phone: [facility] 12-09-2024 10:39-0400 Diastolic blood pressure 74 mm[Hg] Nicolasa Praisler-Wood [employer]EL[employer] Work Phone: [facility] 12-09-2024 10:39-0400 Heart rate 65 /min Nicolasa Praisler-Wood [employer] Work Phone: [facility] 12-09-2024 10:39-0400 SaO2% (BldA) [Mass fraction] 98 % Nicolasa Praisler-Wood [employer]EL[employer] Work Phone: [facility] 12-09-2024 10:39-0400 Systolic blood pressure 120 mm[Hg] Nicolasa Praisler-Wood [employer]EL[employer] Work Phone: [facility] 09-18-2024 12:32-0500 Body mass index (BMI) [Ratio] 51.59 kg/m2 Nicolasa Praisler-Wood [employer] Work Phone: [facility] 09-18-2024 12:32-0500 Body temperature 98.4 [degF] Nicolasa Praisler-Wood [employer]EL[employer] Work Phone: [facility] 09-18-2024 12:32-0500 Body weight 132.1 kg Nicolasa Praisler-Wood [employer]EL[employer] Work Phone: [facility] 09-18-2024 12:32-0500 Diastolic blood pressure 80 mm[Hg] Nicolasa Praisler-Wood [employer]EL[employer] Work Phone: [facility] 09-18-2024 12:32-0500 Heart rate 73 /min Nicolasa Praisler-Wood [employer]EL[employer] Work Phone: [facility] 09-18-2024 12:32-0500 Respiratory rate 16 /min Nicolasa Praisler-Wood [employer]EL[employer] Work Phone: [facility] 09-18-2024 12:32-0500 SaO2% (BldA) [Mass fraction] 95 % Nicolasa Praisler-Wood [employer]EL[employer] Work Phone: [facility] 09-18-2024 12:32-0500 Systolic blood pressure 126 mm[Hg] Nicolasa Praisler-Wood [employer]EL[employer] Work Phone: [facility] 09-06-2024 16:58-0500 Body mass index (BMI) [Ratio] 52.88 kg/m2 Nicolasa Praisler-Wood [employer] Work Phone: [facility] 09-06-2024 16:58-0500 Body temperature 98.2 [degF] Nicolasa Praisler-Wood [employer]EL[employer] Work Phone: [facility] 09-06-2024 16:58-0500 Body weight 135.4 kg Nicolasa Praisler-Wood [employer]EL[employer] Work Phone: [facility] 09-06-2024 16:58-0500 Diastolic blood pressure 90 mm[Hg] Nicolasa Praisler-Wood [employer]EL[employer] Work Phone: [facility] 09-06-2024 16:58-0500 Heart rate 98 /min Nicolasa Praisler-Wood [employer]EL[employer] Work Phone: [facility] 09-06-2024 16:58-0500 Respiratory rate 16 /min Nicolasa Praisler-Wood [employer]EL[employer] Work Phone: [facility] 09-06-2024 16:58-0500 SaO2% (BldA) [Mass fraction] 99 % Nicolasa Praisler-Wood [employer]EL[employer] Work Phone: [facility] 09-06-2024 16:58-0500 Systolic blood pressure 132 mm[Hg] Nicolasa Praisler-Wood [employer]EL[employer] Work Phone: [facility] 08-03-2024 10:29-0500 Body mass index (BMI) [Ratio] 52.29 kg/m2 Vaishali Judge [employer] Work Phone: [facility] 08-03-2024 10:29-0500 Body temperature 98.4 [degF] Vaishali Judge [employer]EL[employer] Work Phone: [facility] 08-03-2024 10:29-0500 Body weight 133.9 kg Vaishali Judge [employer]EL[employer] Work Phone: [facility] 08-03-2024 10:29-0500 Diastolic blood pressure 78 mm[Hg] Vaishali Judge [employer]EL[employer] Work Phone: [facility] 08-03-2024 10:29-0500 Heart rate 91 /min Vaihsali Judge [employer]EL[employer] Work Phone: [facility] 08-03-2024 10:29-0500 Respiratory rate 21 /min Vaishali Judge [employer]EL[employer] Work Phone: [facility] 08-03-2024 10:29-0500 SaO2% (BldA) [Mass fraction] 100 % Vaishali Judge [employer]EL[employer] Work Phone: [facility] 08-03-2024 10:29-0500 Systolic blood pressure 132 mm[Hg] Vaishali Judge [employer]EL[employer] Work Phone: [facility] 07-19-2024 18:36-0500 Body temperature 98.71 [degF] Kishore [facility] [employer]EL[employer] Work Phone: [facility] 07-19-2024 18:36-0500 Diastolic blood pressure 77 mm[Hg] [facility] [employer] Work Phone: [facility] 07-19-2024 18:36-0500 Heart rate 97 /min [facility] [employer]EL[employer] Work Phone: [facility] 07-19-2024 18:36-0500 Respiratory rate 18 /min [facility] [employer]EL[employer] Work Phone: [facility] 07-19-2024 18:36-0500 SaO2% (BldA) [Mass fraction] 99 % [facility] [employer]EL[employer] Work Phone: [facility] 07-19-2024 18:36-0500 Systolic blood pressure 134 mm[Hg] [facility]ish[facility] [employer]EL[employer] Work Phone: [facility] 07-07-2024 09:34-0500 Body mass index (BMI) [Ratio] 51.73 kg/m2 Nicolasa Perez-Nir [employer] Work Phone: [facility] 07-07-2024 09:34-0500 Body temperature 98.6 [degF] Nicolasa Perez-Nir [employer]EL[employer] Work Phone: [facility] 07-07-2024 09:34-0500 Body weight 132.45 kg Nicolasa Perez-Nir [employer]EL[employer] Work Phone: [facility] 07-07-2024 09:34-0500 Diastolic blood pressure 84 mm[Hg] Nicolasa Wassermanler-Nir [employer]EL[employer] Work Phone: [facility] 07-07-2024 09:34-0500 Heart rate 91 /min Nicolasa Perez-Nir [employer]EL[employer] Work Phone: [facility] 07-07-2024 09:34-0500 Respiratory rate 18 /min Nicolasa Dickens [employer] Work Phone: [facility] 07-07-2024 09:34-0500 SaO2% (BldA) [Mass fraction] 99 % Nicolasa Perez-Nir [employer]EL[employer] Work Phone: [facility] 07-07-2024 09:34-0500 Systolic blood pressure 122 mm[Hg] Nicolasa Dickens [employer]EL[employer] Work Phone: [facility] 07-05-2024 17:34-0500 Body mass index (BMI) [Ratio] 51.86 kg/m2 Yury White APRN.PLANE CAPTAIN Work Phone: [facility] 07-05-2024 17:34-0500 Body temperature 99.3 [degF] Yury White APRN.PLANE CAPTAIN Work Phone: [facility] 07-05-2024 17:34-0500 Body weight 132.8 kg Yury White APRN.PLANE CAPTAIN Work Phone: [facility] 07-05-2024 17:34-0500 Diastolic blood pressure 84 mm[Hg] Yury White APRN.PLANE CAPTAIN Work Phone: [facility] 07-05-2024 17:34-0500 Heart rate 92 /min Yury White APRN.PLANE CAPTAIN Work Phone: [facility] 07-05-2024 17:34-0500 Respiratory rate 18 /min Yury White APRN.PLANE CAPTAIN Work Phone: [facility] 07-05-2024 17:34-0500 SaO2% (BldA) [Mass fraction] 98 % Yury White APRN.PLANE CAPTAIN Work Phone: [facility] 07-05-2024 17:34-0500 Systolic blood pressure 131 mm[Hg] Yury White APRN.PLANE CAPTAIN Work Phone: [facility] 06-06-2024 12:59-0500 Body mass index (BMI) [Ratio] 52.53 kg/m2 Vaishali Judge [employer] Work Phone: [facility] 06-06-2024 12:59-0500 Body temperature 98.49 [degF] Vaishali Judge [employer]EL[employer] Work Phone: [facility] 06-06-2024 12:59-0500 Body weight 134.5 kg Vaishali Judge [employer]EL[employer] Work Phone: [facility] 06-06-2024 12:59-0500 Diastolic blood pressure 70 mm[Hg] Vaishali Judge [employer] Work Phone: [facility] 06-06-2024 12:59-0500 Heart rate 97 /min Vaishali Judge [employer]EL[employer] Work Phone: [facility] 06-06-2024 12:59-0500 Respiratory rate 18 /min Vaishali Judge [employer]EL[employer] Work Phone: [facility] 06-06-2024 12:59-0500 SaO2% (BldA) [Mass fraction] 99 % Vaishali Judge [employer]EL[employer] Work Phone: [facility] 06-06-2024 12:59-0500 Systolic blood pressure 136 mm[Hg] Vaishali Judge [employer]EL[employer] Work Phone: [facility] 05-16-2024 19:54-0400 Body mass index (BMI) [Ratio] 52.41 kg/m2 [facility] Work Phone: [facility] 05-16-2024 19:54-0400 Body temperature 99 [degF] [facility] Work Phone: [facility] 05-16-2024 19:54-0400 Body weight 134.2 kg [facility] Work Phone: [facility] 05-16-2024 19:54-0400 Diastolic blood pressure 89 mm[Hg] [facility] Work Phone: [facility] 05-16-2024 19:54-0400 Heart rate 76 /min [facility] Work Phone: [facility] 05-16-2024 19:54-0400 Respiratory rate 18 /min [facility] Work Phone: [facility] 05-16-2024 19:54-0400 SaO2% (BldA) [Mass fraction] 98 % [facility] Work Phone: [facility] 05-16-2024 19:54-0400 Systolic blood pressure 140 mm[Hg] [facility] Work Phone: [facility] 05-11-2022 10:20-0400 Body temperature 98.6 [degF] [facility] [employer] Work Phone: [facility] 05-11-2022 10:20-0400 Body weight 131.54 kg Kishorezane [facility] [employer]EL[employer] CAPTAIN Work Phone: [facility] 05-11-2022 10:20-0400 Diastolic blood pressure 76 mm[Hg] Kishore [facility] [employer]EL[employer]TAIN Work Phone: [facility] 05-11-2022 10:20-0400 Heart rate 118 /min Kishore Pendrolando [employer]EL[employer]TAIN Work Phone: [facility] 05-11-2022 10:20-0400 Respiratory rate 18 /min [facility] [employer]EL[employer]TAIN Work Phone: [facility] 05-11-2022 10:20-0400 SaO2% (BldA) [Mass fraction] 99 % Kishore Rodríguez [employer]EL[employer]TAIN Work Phone: [facility] 05-11-2022 10:20-0400 Systolic blood pressure 136 mm[Hg] Kishore [facility] [employer] Work Phone: [facility] 06-19-2017 12:27-0500 BMI (Body Mass Index) 38.61 kg/m2 Christine Paula LPN [facility] Work Phone: 06-19-2017 12:27-0500 Body Temperature 98.1 [degF] Christine Paula LPN [facility] Work Phone: 06-19-2017 12:27-0500 BP Diastolic 78 mm[Hg] Christine Paula LPN [facility] Work Phone: 06-19-2017 12:27-0500 BP Systolic 118 mm[Hg] Christine Paula LPN [facility] Work Phone: 06-19-2017 12:27-0500 Height 160.02 cm Christine Paula LPN [facility] Work Phone: 06-19-2017 12:27-0500 Pulse (Heart Rate) 71 /min Christine Paula LPN [facility] Work Phone: 06-19-2017 12:27-0500 Respiratory Rate 14 /min Christine Paula LPN [facility] Work Phone: 06-19-2017 12:27-0500 Weight 98.88 kg Christine Paula LPN [facility] Work Phone: Encounters Encounter Date Encounter Type Care Provider Facility Start: 05-28-2025 ambulatory [facility] Facility: [facility] Start: 05-28-2025 End: 05-28-2025 ambulatory Alecia Rogers Facility:[facility] Start: 05-24-2025 End: 05-24-2025 ambulatory TIARA HEMANTH Facility:[facility] Start: 05-18-2025 End: 05-18-2025 Emergency department patient visit Alecia Ken Facility:[facility] Start: 05-14-2025 End: 05-14-2025 ambulatory TIARA SWANK Facility:[facility] Start: 04-30-2025 ambulatory Alecia Miroyceel Facility: [facility] Start: 03-27-2025 End: 03-27-2025 ambulatory Ilia Beam Facility:[facility] Start: 03-01-2025 End: 03-01-2025 ambulatory Alecia Miedel Facility:[facility] Start: 02-22-2025 End: 02-22-2025 ambulatory Trinh Saravia Facility:[facility] Start: 02-19-2025 End: 02-19-2025 ambulatory Jordyn Carrillo Facility:[facility] Start: 02-19-2025 End: 03-17-2025 ambulatory Laly Pham Facility:[facility] Start: 02-19-2025 End: 02-19-2025 ambulatory Jordyn Carrillo Facility:[facility] Start: 02-15-2025 ambulatory Alecia Rogers Facility: [facility] Start: 01-23-2025 End: 01-23-2025 ambulatory Trinh Saravia Facility:[facility] Start: 01-10-2025 End: 01-14-2025 ambulatory Laly Pham Facility:[facility] Start: 12-31-2024 End: 12-31-2024 ambulatory Alecia Rogers Facility:[facility] Start: 12-24-2024 ambulatory [facility] Facility :[facility] Start: 12-19-2024 End: 12-19-2024 Emergency department patient visit Erick Camacho Facility:[facility] Start: 12-18-2024 End: 12-18-2024 ambulatory [facility] Facility:[facility] Start: 12-18-2024 End: 12-18-2024 ambulatory [facility] Facility:[facility] Start: 12-10-2024 End: 12-10-2024 Follow-up encounter Katie KURTZ Work Phone: [facility] Comment on above: Results Start: 12-09-2024 End: 12-09-2024 Patient encounter procedure Nicolasa Dickens APRN.ERICA Work Phone: [facility] Comment on above: Urinary frequency (P rimary Dx); Screening for STD (sexually transmitted disease); Cutaneous skin tags Start: 12-09-2024 End: 12-09-2024 ambulatory NICOLASA DICKENS Facility:[facility] Start: 12-05-2024 End: 12-05-2024 ambulatory Trinh Saravia Facility:[facility] Start: 10-31-2024 End: 10-31-2024 ambulatory [facility] Facility:[facility] Start: 10-31-2024 End: 10-31-2024 ambulatory [facility] Facility:[facility] Start: 10-11-2024 End: 10-11-2024 ambulatory Gema Estrada Facility:[facility] Start: 10-10-2024 End: 10-11-2024 ambulatory Gema Estrada Facility:[facility] Start: 10-03-2024 End: 10-03-2024 ambulatory Jordyn Carrillo Facility:[facility] Start: 10-01-2024 End: 10-01-2024 ambulatory Jordyn Carrillo [facility] Start: 10-01-2024 End: 10-01-2024 ambulatory Jordyn Carrillo Facility:[facility] Start: 09-18-2024 End: 09-18-2024 ambulatory ALECIA Herb OTTOEDEL Facility:[facility] Start: 09-18-2024 End: 09-18-2024 Office outpatient visit 15 minutes Nicolasa Dickens APRN.PLANE CAPTAIN Work Phone: [facility] Comment on above: Sore throat (Primary Dx) Start: 09-18-2024 ambulatory ALECIA Herb OTTOEDEL Facilit y:[facility] Start: 09-14-2024 End: 09-14-2024 ambulatory Trinh Saravia Facility:[facility] Start: 09-06-2024 End: 09-06-2024 ambulatory ALECIA E MIEDEL Facility:[facility] Start: 09-06-2024 End: 09-06-2024 Patient encounter procedure Nicolasa Dickens APRN.PLANE CAPTAIN Work Phone: [facility] Comment on above: Viral URI with cough (Primary Dx); Flu-like symptoms Start: 08-20-2024 End: 08-20-2024 ambulatory Alecia Miedel Facility:[facility] Start: 08-20-2024 End: 08-20-2024 ambulatory Alecia Miedel Facility:[facility] Start: 08-06-2024 End: 08-06-2024 ambulatory Alecia Miedel Facility:[facility] Start: 08-06-2024 End: 08-06-2024 ambulatory Alecia Miedel Facility:[facility] Start: 08-05-2024 End: 08-06-2024 Telephone encounter Vaishali Judge APRN.PLANE CAPTAIN Work Phone: [facility] Comment on above: Results Start: 08-03-2024 End: 08-03-2024 ambulatory ALECIA Herb PLASENCIAEL Facility:[facility] Start: 08-03-2024 End: 08-03-2024 Patient encounter procedure Vaishali Judge APRN.PLANE CAPTAIN Work Phone: [facility] Comment on above: URI, acute (Primary Dx); Sore throat Start: 2024 End: 2024 ambulatory [facility] Facility:[facility] Start: 2024 End: 2024 Telephone encounter Katie KURTZ Work Phone: [facility] Comment on above: Results Start: 07-19-2024 End: 07-19-2024 [facility] Start: 07-19-2024 End: 07-19-2024 Office outpatient visit 15 minutes Kishore Rodríguez APRN.PLANE CAPTAIN Work Phone: [facility] Comment on above: Burning with urinati on (Primary Dx) Start: 07-07-2024 End: 07-07-2024 ambulatory ALECIA Herb PLASENCIA Facility:[facility] Start: 07-07-2024 End: 07-07-2024 Patient encounter procedure Nicolasa Dickens [employer] DEVELOPER.PLANE CAPTAIN Work Phone: [facility] Comment on above: Bacterial sinusitis (Primary Dx); Feared condition not demonstrated Start: 07-06-2024 End: 07-06-2024 Telephone encounter Apple Foster APRN.PLANE CAPTAIN Work Phone: [facility] Comment on above: Results Start: 07-05-2024 End: 07-05-2024 ambulatory [facility] Facility:[facility] Start: 07-05-2024 End: 07-05-2024 Patient encounter procedure Yury White APRN.PLANE CAPTAIN Work Phone: [facility] Comment on above: Sore throat (Primary Dx); URI, acute Start: 06-28-2024 End: 06-28-2024 ambulatory [facility] Facility:[facility] Start: 06-08-2024 [facility] Start: 06-06-2024 End: 06-06-2024 Subsequent hospital visit by physician Xr [facility] Work Phone: Radiology Comment on above: Acute cough [R05.1] Start: 06-06-2024 End: 06-06-2024 ambulatory [facility] Facility:[facility] Start: 06-06-2024 End: 06-06-2024 Patient encounter procedure Vaishali Judge [employer] DEVELOPER.PLANE CAPTAIN Work Phone: [facility] Comment on above: Urinary frequency (P rimary Dx); Acute cough; Encounter for screening examination for sexually transmitted infection; URI, acute Start: 06-05-2024 End: 06-05-2024 [facility] Start: 06-01-2024 End: 06-01-2024 ambulatory [facility] Facility:[facility] Start: 05-16-2024 End: 05-16-2024 Patient encounter procedure [facility] Work Phone: [facility] Comment on above: Bacterial sinusitis (Primary Dx) Start: 03-12-2024 End: 03-12-2024 Emergency department patient visit STACEY SHUKLA [facility] Start: 02-23-2024 End: 02-23-2024 Emergency department patient visit [facility] Start: 05-08-2023 End: 05-08-2023 Emergency department patient visit [facility] Start: 05-11-2022 End: 05-11-2022 Patient encounter procedure Kishore Rodríguez [employer] DEVELOPER.PLANE CAPTAIN Work Phone: [facility] Comment on above: Pharyngitis, unspeci fied etiology (Primary Dx); Viral illness Start: 10-12-2021 Telephone encounter Nicolasa Riojas APRN.PLANE CAPTAIN Work Phone: [facility] Comment on above: Results Start: 10-07-2021 End: 10-07-2021 Subsequent hospital visit by physician Xr [facility] Work Phone: Radiology Comment on above: Cough [R05.9] Start: 02-12-2021 Patient requested procedure Nicolasa Dickens APRN.PLANE CAPTAIN Work Phone: [facility] Work Phone: Procedures Date Procedure Procedure Detail Performing Clinician Start: 12-09-2024 Urnls dip stick/tabl et rgnt auto w/o microscopy Nicolasa Dickens APRN.PLANE CAPTAIN Work Phone: Start: 09-18-2024 STREP A MOLECULAR (POC) Vaishali Judge APRN.PLANE CAPTAIN Work Phone: Start: 08-03-2024 STREP A MOLECULAR (POC) Yury White APRN.PLANE CAPTAIN Work Phone: Start: 07-19-2024 Urnls dip stick/tabl et rgnt auto w/o microscopy Katie KURTZ Work Phone: Start: 07-05-2024 STREP A MOLECULAR (POC) Yury White APRN.PLANE CAPTAIN Work Phone: Start: 06-06-2024 Radiologic exam ches t 2 views Vaishali Judge APRN.PLANE CAPTAIN Work Phone: Start: 06-06-2024 Urnls dip stick/tabl et rgnt auto w/o microscopy Vaishali Judge APRN.PLANE CAPTAIN Work Phone: Start: 05-11-2022 STREP A MOLECULAR (POC) Kishore Rodríguez APRN.PLANE CAPTAIN Work Phone: Start: 10-07-2021 Radiologic exam ches t 2 views Mary Retana PA-C Work Phone: Start: 06-19-2017 End: 06-19-2017 [facility] streptococcus group a Stacey Phillips PA-C Work Phone: Start: 03-08-2016 Adult depression scr eening assessment Nicolasa Dickens APRN.PLANE CAPTAIN Work Phone: Plan of Treatment Date Care Activity Detail Author Start: 07-06-2031 Urine microalbumin profile DTaP,Tdap,Td Vaccine (11 - Td or Tdap) [facility] Start: 01-26-2027 Urine microalbumin profile DTAP,TDAP,TD (9 - Td or Tdap) [facility] Start: 03-18-2025 Influenza vaccination Influenz a Vaccine (Season Ended) [facility] Start: 03-18-2024 Covid-19 Vaccine ( season) Covid-19 Vaccine ( season) [facility] Start: 03-18-2024 Influenza vaccination Influenza Vacc ine (#1) [facility] Start: 02-24-2024 PAP TESTING PAP TESTING [facility] Start: 02-24-2024 Screening for malign ant neoplasm of cervix Cervical Cancer Screening [facility] Start: 05-11-2022 End: 05-25-2022 Influenza virus A and B RNA and SARS-CoV-2 (COVID-19) N gene panel - Respiratory specimen by VINOD with probe detection [facility] Work Phone: Comment on above: Expected: 05/11/2022 , Expires: 05/25/2022 Start: 03-18-2022 Influenza vaccination INFLUENZA (#1) [facility] Start: 07-18-2021 DEPRESSION ASSESSMENT DEPRESSION ASS ESSMENT [facility] Start: 03-18-2021 Influenza vaccination INFLUENZA (#1) [facility] Start: 06-19-2017 End: 06-19-2017 Streptococcus.beta-hemol ytic [Presence] in Throat by Organism specific culture *Culture, R/O Strep A Swab [facility] Work Phone: Start: 06-19-2017 End: 06-19-2017 Appointment Appointment [facility] Work Phone: Start: 03-08-2017 Adult depression screening assessment DEPRESSION SCREENING [facility] Start: 2015 Anxiety Screening Anxiety Screening [facility] Start: 2015 Depression Screening Depression Scre ening [facility] Start: 2015 HEPATITIS C SCREENING HEPATITIS C [facility] Start: 2015 Hepatitis C screening Hepatitis C [facility] Start: 2013 Meningococcal B Vacc ine: Consider Based On Risk (2 of 2 - Risk Bexsero 2-dose series) Meningococcal B Vaccine: Consider Based On Risk (2 of 2 - Risk Bexsero 2-dose series) [facility] Start: 2013 MENINGOCOCCAL B: Consider based on risk (2 of 2 - Risk Bexsero 2-dose series) MENINGOCOCCAL B: Consider based on risk (2 of 2 - Risk Bexsero 2-dose series) [facility] Start: 06-19-2013 MENINGOCOCCAL B: Consider based on risk (2 of 2 - Risk Bexsero 2-dose series) MENINGOCOCCAL B: Consider based on risk (2 of 2 - Risk Bexsero 2-dose series) [facility] Start: 2012 HPV Vaccine (1 - 3-d ose series) HPV Vaccine (1 - 3-dose series) [facility] Start: 2011 PEDS TO ADULT TRANSI TION ANNUAL ASSESSMENT PEDS TO ADULT TRANSITION ANNUAL ASSESSMENT [facility] Start: 2009 PEDS TO ADULT TRANSI TION INITIAL DISCUSSION PEDS TO ADULT TRANSITION INITIAL DISCUSSION [facility] Start: 2008 HPV VACCINE (1 - 2-d ose series) HPV VACCINE (1 - 2-dose series) [facility] Start: 2002 COVID-19 VACCINE (1) COVID-19 VACCIN E (1) [facility] Start: 01-17-1998 COVID-19 VACCINE (#1) COVID-19 VACCI NE (#1) [facility] Bacteria identified in Urine by Culture URINE CULTURE Microbiology Routine Urinary frequency Ordered: 06/06/2024 [facility] Work Phone: Comment on above: Ordered: 06/06/2024 Bacteria identified in Urine by Culture URINE CULTURE Microbiology Routine Burning with urination Ordered: 07/19/2024 [facility] Work Phone: Comment on above: Ordered: 07/19/2024 Bacteria identified in Urine by Culture BACTERIAL CULTURE, URINE Microbiology Routine Urinary frequency Ordered: 12/09/2024 [facility] Work Phone: Comment on above: Ordered: 12/09/2024 BACTERIAL VAGINOSIS NAAT BACTERI AL VAGINOSIS NAAT Lab Routine Encounter for screening examination for sexually transmitted infection Ordered: 06/06/2024 [facility] Comment on above: Ordered: 06/06/2024 BACTERIAL VAGINOSIS NAAT BACTERI AL VAGINOSIS NAAT Lab Routine Burning with urination Ordered: 07/19/2024 [facility] Comment on above: Ordered: 07/19/2024 BACTERIAL VAGINOSIS NAAT BACTERI AL VAGINOSIS NAAT Lab Routine Screening for STD (sexually transmitted disease) Ordered: 12/09/2024 [facility] Comment on above: Ordered: 12/09/2024 CHRISSIE/TRICHOMONAS NAAT CHRISSIE /TRICHOMONAS NAAT Lab Routine Encounter for screening examination for sexually transmitted infection Ordered: 06/06/2024 [facility] Comment on above: Ordered: 06/06/2024 CHRISSIE/TRICHOMONAS NAAT CHRISSIE /TRICHOMONAS NAAT Lab Routine Burning with urination Ordered: 07/19/2024 [facility] Comment on above: Ordered: 07/19/2024 CHRISSIE/TRICHOMONAS NAAT CHRISSIE /TRICHOMONAS NAAT Lab Routine Screening for STD (sexually transmitted disease) Ordered: 12/09/2024 [facility] Comment on above: Ordered: 12/09/2024 Chlamydia trachomatis+Neisseria gonorrhoeae DNA [Presence] in Unspecified specimen by VINOD with probe detection GONORRHEA/CHLAMYDIA NAAT Lab Routine Encounter for screening examination for sexually transmitted infection Ordered: 06/06/2024 [facility] Comment on above: Ordered: 06/06/2024 Chlamydia trachomatis+Neisseria gonorrhoeae DNA [Presence] in Unspecified specimen by VINOD with probe detection GONORRHEA/CHLAMYDIA NAAT Lab Routine Burning with urination Ordered: 07/19/2024 [facility] Work Phone: Comment on above: Ordered: 07/19/2024 Chlamydia trachomatis+Neisseria gonorrhoeae DNA [Presence] in Unspecified specimen by VINOD with probe detection GONORRHEA/CHLAMYDIA NAAT Lab Routine Screening for STD (sexually transmitted disease) Ordered: 12/09/2024 [facility] Comment on above: Ordered: 12/09/2024 COVID & INFLUENZA A/ B & RSV PCR, ROUTINE COVID & INFLUENZA A/B & RSV PCR, ROUTINE Microbiology Routine URI, acute Ordered: 07/05/2024 [facility] Work Phone: Comment on above: Ordered: 07/05/2024 COVID & INFLUENZA A/ B & RSV PCR, ROUTINE COVID & INFLUENZA A/B & RSV PCR, ROUTINE Microbiology Routine URI, acute 08/03/2024 11:18 AM EST [facility] Work Phone: COVID & INFLUENZA A/ B & RSV PCR, ROUTINE COVID & INFLUENZA A/B & RSV PCR, ROUTINE Microbiology Routine Flu-like symptoms Ordered: 09/06/2024 [facility] Work Phone: Comment on above: Ordered: 09/06/2024 Immunizations Immunization Date Immunization Notes Care Provider Alona phelps 07-06-2021 tetanus toxoid, redu gerson diphtheria toxoid, and acellular pertussis vaccine, adsorbed Vaishali Judge [employer] DEVELOPER.PLANE CAPTAIN Work Phone: [facility] 06-26-2018 hepatitis B vaccine, adult dosage Nicolasa Dickens [employer] DEVELOPER.PLANE CAPTAIN Work Phone: [facility] Work Phone: 05-20-2017 influenza, injectabl e, quadrivalent, contains preservative Vaishali Judge [employer] DEVELOPER.PLANE CAPTAIN Work Phone: [facility] 05-20-2017 influenza virus vacc ine, unspecified formulation Xr [facility] Work Phone: [facility] 01-26-2017 tetanus and diphther ia toxoids, adsorbed, preservative free, for adult use (2 Lf of tetanus toxoid and 2 Lf of diphtheria toxoid) Nicolasa Dicekns APRN.PLANE CAPTAIN Work Phone: [facility] Work Phone: 01-19-2017 tetanus toxoid, redu gerson diphtheria toxoid, and acellular pertussis vaccine, adsorbed Nicolasa Dickens [employer] DEVELOPER.PLANE CAPTAIN Work Phone: [facility] 07-18-2016 tetanus toxoid, redu gerson diphtheria toxoid, and acellular pertussis vaccine, adsorbed Vaishali Judge [employer] DEVELOPER.PLANE CAPTAIN Work Phone: [facility] 02-12-2015 meningococcal polysaccharide (groups A, C, Y and W-135) diphtheria toxoid conjugate vaccine (MCV4P) Nicolasa Dickens APRN.PLANE CAPTAIN Work Phone: [facility] 02-12-2015 tuberculin skin test ; purified protein derivative solution, intradermal Xr [facility] Work Phone: [facility] 12-31-2013 tuberculin skin test ; purified protein derivative solution, intradermal Xr [place] Work Phone: [facility] 12-21-2013 tuberculin skin test ; purified protein derivative solution, intradermal Xr [place] Work Phone: [facility] 12-22-2009 tetanus toxoid, redu gerson diphtheria toxoid, and acellular pertussis vaccine, adsorbed Nicolasa Dickens [employer] DEVELOPER.PLANE CAPTAIN Work Phone: [facility] 09-27-2008 measles, mumps and rubella virus vaccine Nicolasa Dickens [employer] DEVELOPER.PLANE CAPTAIN Work Phone: [facility] 09-27-2002 diphtheria, tetanus toxoids and acellular pertussis vaccine Nicolasa Dickens [employer] DEVELOPER.PLANE CAPTAIN Work Phone: [facility] 09-27-2002 measles, mumps and rubella virus vaccine Vaishali Judge [employer] DEVELOPER.PLANE CAPTAIN Work Phone: [facility] 09-27-2002 poliovirus vaccine, inactivated Nicolasa Dickens [employer] DEVELOPER.PLANE CAPTAIN Work Phone: [facility] 01-20-1999 diphtheria, tetanus toxoids and acellular pertussis vaccine Nicolasa Dickens [employer] DEVELOPER.PLANE CAPTAIN Work Phone: [facility] 01-20-1999 haemophilus influenz ae type b vaccine, HbOC conjugate Nicolasa Dickens [employer] DEVELOPER.PLANE CAPTAIN Work Phone: [facility] 01-20-1999 trivalent poliovirus vaccine, live, oral Nicolasa Dickens [employer] DEVELOPER.PLANE CAPTAIN Work Phone: [facility] 01-20-1999 varicella virus vaccine Rita Dickens [employer] SOL[employer] DEVELOPER.PLANE CAPTAIN Work Phone: [facility] 08-07-1998 measles, mumps and rubella virus vaccine Nicolasa Dickens [employer] SOL[employer] DEVELOPER.PLANE CAPTAIN Work Phone: [facility] 01-16-1998 diphtheria, tetanus toxoids and acellular pertussis vaccine Nicolasa Praisler-Wood [employer] SOL[employer] DEVELOPER.PLANE CAPTAIN Work Phone: [facility] 01-16-1998 haemophilus influenz ae type b vaccine, HbOC conjugate Nicolasa Praisler-Wood [employer] SOL[employer] DEVELOPER.PLANE CAPTAIN Work Phone: [facility] 01-16-1998 hepatitis B vaccine, pediatric or pediatric/adolescent dosage Nicolasa Praisler-Wood [employer] SOL[employer] DEVELOPER.PLANE CAPTAIN Work Phone: [facility] 1997 diphtheria, tetanus toxoids and acellular pertussis vaccine Nicolasa Praisler-Wood [employer] SOLUTIONS DEVELOPER.PLANE CAPTAIN Work Phone: [facility] 1997 haemophilus influenz ae type b vaccine, HbOC conjugate Nicolasa Praisler-Wood [employer] SOLUT[employer] DEVELOPER.PLANE CAPTAIN Work Phone: [facility] 1997 poliovirus vaccine, inactivated Nicolasa Praisler-Wood [employer] SOL[employer] DEVELOPER.PLANE CAPTAIN Work Phone: [facility] 1997 diphtheria, tetanus toxoids and acellular pertussis vaccine Nicolasa Praisler-Wood [employer] SOL[employer] DEVELOPER.PLANE CAPTAIN Work Phone: [facility] 1997 haemophilus influenz ae type b vaccine, HbOC conjugate Nicolasa Praisler-Wood [employer] SOLUTIONS DEVELOPER.PLANE CAPTAIN Work Phone: [facility] 1997 poliovirus vaccine, inactivated Nicolasa Praisler-Wood [employer] DEVELOPER.PLANE CAPTAIN Work Phone: [facility] 1997 hepatitis B vaccine, pediatric or pediatric/adolescent dosage Nicolasa Praisler-Wood [employer] SOL[employer] DEVELOPER.PLANE CAPTAIN Work Phone: [facility] 1997 hepatitis B vaccine, pediatric or pediatric/adolescent dosage Nicolasa Praisler-Wood [employer] DEVELOPER.PLANE CAPTAIN Work Phone: [facility] Payers Date Payer Category Payer Self-pay 2023 Private Health Insurance [id number] 2023 Private Health Insurance [id number] 2021 Private Health Insurance [facility] [employer] [id number] 2021-[place] [address] [id number] [place] [address] PPO [id number] 2021 Private Health Insurance [id number] 1997 Unknown [id number] 2.16.840.1.600636.3.579. 2.902 1997 Unknown [id number] 2.16.840.1.161943.3.579. 2.902 1997 Unknown [id number] 2.16.840.1.581965.3.579. 2.902 Unknown [id number] 2.16.840.1.751488.3.579. 2.462 Unknown [id number] 2.16840.1.622050.3.579. 2.462 Unknown [id number] 2.16.840.1.729056.3.579. 2.462 Unknown [id number] 2.16.840.1.041284.3.579. 2.462 Unknown [id number] 2.16840.1.484725.3.579. 2.462 Unknown [id number] 2.16840.1.581317.3.579. 2.462 Unknown [id number] 2.16.840.1.623424.3.579. 2.462 Unknown [id number] 2.16.840.1.845823.3.579. 2.462 Unknown [id number] 2.16.840.1.871390.3.579. 2.462 Unknown [id number] 2.16.840.1.031743.3.579. 2.462 Unknown [id number] 2.16840.1.276149.3.579. 2.462 Unknown [id number] 2.16.840.1.350505.3.579. 2.462 Unknown [id number] 2.16.840.1.434424.3.579. 2.462 Unknown [id number] 2.16.840.1.335929.3.579. 2.462 Unknown [id number] 2.16.840.1.350642.3.579. 2.462 Unknown [id number] 2.16.840.1.881022.3.579. 2.462 Unknown [id number] 2.16.840.1.984117.3.579. 2.462 Unknown [id number] 2.840.1.568769.3.579. 2.462 Unknown [id number] 2.840.1.401300.3.579. 2.462 Unknown [id number] 2.840.1.902410.3.579. 2.462 Unknown [id number] 2.840.1.660511.3.579. 2.462 Unknown [id number] 2.840.1.435027.3.579. 2.462 Unknown [id number] 2.840.1.187794.3.579. 2.462 Unknown [id number] 2.840.1.131709.3.579. 2.462 Unknown [id number] 2.840.1.142712.3.579. 2.462 Unknown [id number] 2.840.1.536965.3.579. 2.462 Unknown [id number] 2..840.1.041174.3.579. 2.462 Unknown [id number] 2.16.840.1.388449.3.579. 2.462 Unknown [id number] 2.16.840.1.998434.3.579. 2.462 Unknown [id number] 2.840.1.441135.3.579. 2.462 Unknown [id number] 2.16.840.1.948296.3.579. 2.462 Unknown [id number] 2.16.840.1.391619.3.579. 2.462 Unknown [id number] 2.16.840.1.663750.3.579. 2.462 Unknown [id number] 2.16.840.1.002112.3.579. 2.462 Unknown [id number] 2.16.840.1.855053.3.579. 2.462 Unknown [id number] 2.16.840.1.294577.3.579. 2.462 Unknown [id number] 2.16.840.1.854383.3.579. 2.462 Unknown [id number] 2.16.840.1.443024.3.579. 2.462 Social History Date Type Detail Facility Start: 02-10-2011 End: 05-11-2022 Tobacco smoking status NHIS Never smoked tobacco [facility] Work Phone: Start: 10-07-2021 End: 12-09-2024 Alcohol intake Current non-drinker of alcohol (finding) [facility] Start: 02-12-2021 Education 13 [facility] Start: 01-21-2021 [facility] Start: 1997 Sex Assigned At Not on file [facility] Start: 09-27-2021 End: 05-11-2022 Exposure to SARS-CoV-2 (event) Not sure [facility] Start: 02-10-2011 End: 05-11-2022 Tobacco use and exposure Smokeless tobacco non-user [facility] Work Phone: Start: 06-25-2020 End: 10-07-2021 History of Social function [facility] [facility] Start: 06-25-2020 End: 10-07-2021 Tobacco use panel [facility] National Score (1-10 0), lower number is lower risk Not on file [facility] Functional Status Date Assessment Result Facility 02-12-2015 Are you deaf, or do you have serious difficulty hearing No 02/12/2015 8:02 AM EDT Katiuska Mike LPN No [facility] 02-12-2015 Are you blind, or do you have serious difficulty seeing, even when wearing glasses No 02/12/2015 8:02 AM EDT Katiuska Mike LPN No [facility] 02-12-2015 Do you have serious difficulty walking or climbing stairs No 02/12/2015 8:02 AM EDT Katiuska Mike LPN No [facility] 02-12-2015 Do you have difficul ty dressing or bathing No 02/12/2015 8:02 AM EDT Katiuska Mike LPN No [facility] 02-12-2015 Because of a physica l, mental, or emotional condition, do you have difficulty doing errands alone such as visiting a physician's office or shopping No 02/12/2015 8:02 AM Katiuska Lucas LPN No [facility] Mental Status Date Assessment Result Facility 02-12-2015 Because of a physica l, mental, or emotional condition, do you have serious difficulty concentrating, remembering, or making decisions No 02/12/2015 8:02 AM EDT Katiuska Mike LPN No [facility] Clinical Notes 10-21-2016 to 05-24-2025 Telephone Encounter - Michelle Redman MA - 12/10/2024 9:01 AM EDTTelephone Encounter - Michelle Redman MA - 12/10/2024 9:01 AM EDTPatient InstructionsPatient InstructionsPatient Instructions Note Date & Type Note Facility 05-24-2025 Note HNO ID: [id number] Author: TIARA SAXENA APRN.PLANE CAPTAIN Service: ? Author Type: Nurse Practitioner Type: Progress Notes Filed: 05/24/2025 12:58 Note Text: [facility] CHRISTEL Hope is a 29 year old female. Patient presents with: STD: States she is having new sx since last being see, throbbing, pain, irritation, odor, x 4 days States 2 weeks since last partner HPI The patient is a 29-year-old female presenting with vaginal discomfort and odor. She is accompanied by her child. The patient reports 4 days of throbbing discomfort, slight irritation, and a slight odor from the vagina. She describes a sensation of a hot crotch and reports lower back ache and cramping. She denies dysuria and UTI symptoms. She requests STI testing and is amenable to a full exam. She has a history of bladder issues and was recently seen in the ER for pain. She was told her bladder wall is mildly thickened and has a urology appointment scheduled in June. Review of Systems Genitourinary: (+) pelvic pain, (+) pelvic cramping, (+) genital throbbing, (+) genital irritation, (+) genital warmth, (+) genital malodor, (-) dysuria Musculoskeletal: (+) lower back pain PAST MEDICAL HISTORY Diagnosis Date Chlamydia 2013 and 2016 Depression Infertility, female Panic attacks depression PAST SURGICAL HISTORY Procedure Laterality Date DELIVERY ONLY 04/12/2017 PAST SURGICAL HISTORY OF oral (gum) surgery ALLERGIES Patient has no known allergies. MEDICATIONS tirzepatide 7.5 mg/0.3 mL syringe Inject 7.5 mg subcutaneously one time a week. levonorgestrel (MIRENA) 21 mcg/24hr (up to 8 yrs) 52 mg IUD 1 each by INTRAUTERINE route one time only. venlafaxine ER (EFFEXOR XR) 150 mg 24 hr capsule Take 150 mg by mouth every morning. traZODone (DESYREL) 50 mg tablet Take 50 mg by mouth at bedtime as needed. pantoprazole DR (PROTONIX) 40 mg tablet Take 40 mg by mouth once daily. Bkogaztijjnkuhi-Fsjsdiqio-IQ (BROMFED DM) 2-30-10 mg/5 mL syrup Take 5 mL by mouth four times a day as needed. (Patient not taking: Reported on 09/18/2024) metoprolol tartrate, short acting, (LOPRESSOR) 25 mg tablet TAKE 1/2 TABLET BY MOUTH 2 TIMES A DAY (Patient not taking: Reported on 09/18/2024) omeprazole (PRILOSEC) 20 mg capsule Take 20 [...] mouth. (Patient not taking: Reported on 05/11/2022) Cjjlijlf-Aq-Viu-Fe-FA ( VITAMIN) tab Take 1 tablet by [...] Disease Paternal Grandfather No Known Problems Daughter SOCIAL HISTORY[1] Objective BP 128/78 Pulse 76 Temp 37.1 ?C (98.7 ?F) Resp 20 Wt 129 kg (284 lb 6.3 oz) LMP 05/16/2025 (Within Days) SpO2 100% BMI 50.38 kg/m? Physical Exam Constitutional: General: She is not in acute distress. Appearance: Normal appearance. She is normal weight. She is not ill-appearing or toxic-appearing. Cardiovascular: Rate and Rhythm: Normal rate. Pulmonary: Effort: Pulmonary effort is normal. Abdominal: Tenderness: There is no right CVA tenderness or left CVA tenderness. Genitourinary: Comments: Deferred, attempted unable to complete with patients young son Patient agreeable to self swab Neurological: Mental Status: She is alert. { 1. Screening for STD (sexually transmitted disease) (Z11.3) 2. Possible exposure to STI (Z20.2) 3. Vaginal irritation (N89.8) - Acute vaginal irritation, odor, and discomfort for 4 days; no dysuria. No signs of pylonephritis, acute abdomen, or - Self-collected vaginal swabs for STI testing, unable to complete pelvic exam wit (more content not included)... [facility] 05-14-2025 Note HNO ID: [id number] Author: TIARA SAXENA APRN.PLANE CAPTAIN Service: ? Author Type: Nurse Practitioner Type: Progress Notes Filed: 05/14/2025 17:54 Note Text: URGENT CARE CHRISTEL Hope is a 29 year old female. Patient presents with: STD UTI Vaginal Problem: BV UTI Vaginal Problem The patient is a 29-year-old female with PCOS and a Mirena IUD, presenting with postcoital vaginal bleeding, back pain, and intermittent numbness and cramping in her hands and feet. The patient reports vaginal bleeding after intercourse. She is uncertain if this represents a period or abnormal bleeding, as she had previously been amenorrheic with her Mirena IUD. She recently completed antibiotics for BV and notes a pattern of developing yeast infections and BV after antibiotics for sinus infections. She reports minimal vaginal discharge, with only occasional yellow-clear, gooey discharge. She denies pelvic pain, vaginal lesions, and urinary retention, but reports frequent urination. She has a history of chlamydia diagnosed in high school. 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 Last week, she strained her back catching a patient from falling. She denies numbness or tingling down her legs, but notes her foot has been going to sleep and she has been experiencing more charley horses. She also reports that her hands cramp up and go completely numb at night, feeling like her joints are locking up. She has been on a GLP-1 agonist at 5 mg for 3 weeks, with significant weight loss from 319 lbs to 284 lbs. She drinks only water and consumes 2 [employer] protein shakes daily (42g protein each), one in the morning and one at night, sometimes in addition to dinner. She takes a pre- and probiotic, vitamin D, and K12. She inquires about taking apple cider vinegar with her current supplements. Constitutional: (+) weight loss Gastrointestinal: (+) nausea Genitourinary: (+) vaginal bleeding, (+) urinary frequency, (-) pelvic pain, (-) vaginal discharge, (-) incomplete bladder emptying Musculoskeletal: (+) back pain, (+) leg cramps, (+) hand cramps Neurological: (+) lower extremity paresthesia, (+) upper extremity numbness PAST MEDICAL HISTORY Diagnosis Date Chlamydia 2013 [...] mg by mouth at bedtime as needed. Qvxwtwwbmzwdgst-Diwpbyieo-XG (BROMFED DM) 2-30-10 mg/5 mL syrup Take [...] mouth. (Patient not taking: Reported on 05/11/2022) Knjduoxz-Sv-Oel-Fe-FA ( VITAMIN) tab Take 1 tablet by [...] Disease Paternal Grandfather No Known Problems Daughter SOCIAL HISTORY[1] Objective BP 124/70 Pulse 88 Temp 36.8 ?C (98.2 ?F) (Tympanic) (more content not included)... [facility] 12-10-2024 Telephone encounter Note Patient given results and verbalized understanding of instructions given. Michelle Redman MA [facility] 12-10-2024 Miscellaneous Notes Patient given results and verbalized understanding of instructions given. Michelle Redman MA Please contact patient and let her know her gonorrhea, chlamydia, yeast, trichomonas and BV swabs were all negative documented in this encounter [facility] 12-10-2024 Telephone encounter Note Please contact patient and let her know her gonorrhea, chlamydia, yeast, trichomonas and BV swabs were all negative [facility] Work Phone: 12-09-2024 Instructions Nicolasa Dickens [...] skin tags removed. documented in this encounter [facility] 12-09-2024 Note HNO ID: [id number] Author: NICOLASA DICKENS APRN.ERICA Service: ? Author [...] mg by mouth at bedtime as needed. Sjtqtvaqnigxfgg-Qjagwaaji-CM (BROMFED DM) 2-30-10 mg/5 mL syrup Take [...] mouth. (Patient not taking: Reported on 05/11/2022) Vmgspmbq-Pt-Pzk-Fe-FA ( VITAMIN) tab Take 1 tablet by [...] nursing note reviewed. Exam conducted with a commercial crabber present. Constitutional: General: She is not in [...] or cervical bleeding. (more content not included)... [facility] 12-09-2024 History of Presen t illness Narrative [facility] Subjective Cedric Hope is [...] mg by mouth at bedtime as needed. Vyjujgzzehzbprw-Tmiidaerc-AO (BROMFED DM) 2-30-10 mg/5 mL syrup Take [...] mouth. (Patient not taking: Reported on 05/11/2022) Ywsjytiz-Wo-Whm-Fe-FA ( VITAMIN) tab Take 1 tablet by [...] nursing note reviewed. Exam conducted with a commercial crabber present. Constitutional: General: She is not in [...] Discussed expected course of illness Nicolasa Dickens APRN.PLANE CAPTAIN and Recording using [employer] software for draft documentation of the visit was discussed with the patient/authorized service support representative; all questions welcomed and answered. Patient/authorized service support representative agreed to proceed Disposition The patient was discharged. Procedures documented in this encounter [facility] 09-18-2024 Instructions Nava Schmitt - 09/18/2024 12:50 PM EST ASSESSMENT/PLAN: 1. [...] mouth and then touches another person directly (pgda-ce-kngg contact) or indirectly (sqah-go-kxljiq, such as doorknob, telephone, toys). It is [...] every four months on our web site ([email or web address]). Information below was obtained from Up to date Last literature review version 19.2: November 2010 This topic last updated: March 04, 2010 documented in this encounter [facility] 09-18-2024 Note HNO ID: [id number] Author: NICOLASA DICKENS APRN.PLANE CAPTAIN Service: ? Author Type: Nurse Practitioner Type: [...] Take 40 mg by mouth once daily. Mscbhntkijvcrvj-Grtsjvijo-CC (BROMFED DM) 2-30-10 mg/5 mL syrup Take [...] mouth. (Patient not taking: Reported on 05/11/2022) Dbhucgkm-Pi-Mqd-Fe-FA ( VITAMIN) tab Take 1 tablet by [...] Neurological: Mental Status: (more content not included)... [facility] 09-18-2024 History of Presen t illness Narrative [facility] Subjective Cedric R White is a 29 [...] Take 40 mg by mouth once daily. Ipjhvuxchxigtsx-Myyhgshtq-KZ (BROMFED DM) 2-30-10 mg/5 mL syrup Take [...] mouth. (Patient not taking: Reported on 05/11/2022) Rdhfmtxr-Xx-Vom-Fe-FA ( VITAMIN) tab Take 1 tablet by [...] A MOLECULAR (POC) Nava Schmitt TEACHING PROVIDER (Physician/PA/SHAREPOINT SOLUTIONS DEVELOPER) NOTE OF PERSONAL INVOLVEMENT IN CARE: I have personally seen and examined the patient and performed the medical decision-making components. I have reviewed the Advanced Practice Registered Nurse (SHAREPOINT SOLUTIONS DEVELOPER) Student's documentation and verified the findings in the note as written. Any additions or changes are noted in bold/italics. Signature: Nicolasa Dickens Date: 09/18/2024 Time: 1:22 PM documented in this encounter [facility] 09-06-2024 Note SARS-COV-2 (AGENT OF COVID-19) RNA: Not detected INFLUENZA A RNA: Not detected INFLUENZA B RNA: Not detected RESPIRATORY SYNCYTIAL VIRUS (RSV) RNA: Not detected [facility] Comment on above: Performed By: #### [id number] ####[facility] LABCLIA [id number] [place] [address] [place] 09-06-2024 Instructions Nicolasa Dickens APRN.PLANE CAPTAIN - 09/06/2024 5:26 PM EST ASSESSMENT/PLAN: 1. [...] spray as needed. Nava Schmitt TEACHING PROVIDER (Physician/PA/SHAREPOINT SOLUTIONS DEVELOPER) NOTE OF PERSONAL INVOLVEMENT IN CARE: I have personally seen and examined the patient and performed the medical decision-making components. I have reviewed the Advanced Practice Registered Nurse (SHAREPOINT SOLUTIONS DEVELOPER) Student's documentation and verified the findings in [...] fluids help open respiratory and sinus passages [place] [facility] [place] may offer relief of nasal and head [...] rather than better documented in this encounter [facility] 09-06-2024 Note HNO ID: [id number] Author: NICOLASA DICKENS APRN.PLANE CAPTAIN Service: ? Author Type: Nurse Practitioner Type: [...] mg by mouth at bedtime as needed. Mjmznrjxegefesk-Wqmknzlys-CP (BROMFED DM) 2-30-10 mg/5 mL syrup Take [...] mouth. (Patient not taking: Reported on 05/11/2022) Oxtdkzwh-Ea-Scc-Fe-FA ( VITAMIN) tab Take 1 tablet by [...] regular rhythm. Pulmonary: (more content not included)... [facility] 09-06-2024 History of Presen t illness [...] mg by mouth at bedtime as needed. Rtiugvcpebwzyzs-Qmibhakhq-OJ (BROMFED DM) 2-30-10 mg/5 mL syrup Take [...] mouth. (Patient not taking: Reported on 05/11/2022) Cwyotitf-Gg-Qap-Fe-FA ( VITAMIN) tab Take 1 tablet by [...] spray as needed. Nava Schmitt TEACHING PROVIDER (Physician/PA/SHAREPOINT SOLUTIONS DEVELOPER) NOTE OF PERSONAL INVOLVEMENT IN CARE: I have personally seen and examined the patient and performed the medical decision-making components. I have reviewed the Advanced Practice Registered Nurse (SHAREPOINT SOLUTIONS DEVELOPER) Student's documentation and verified the findings in the note as written. Any additions or changes are noted in bold/italics. Signature: Nicolasa Dickens Date: 09/06/2024 Time: 5:26 PM documented in this encounter [facility] 08-06-2024 Telephone encounter Note Patient given results and verbalized understanding of instructions given. Michelle Redman MA [facility] 08-06-2024 Miscellaneous Notes Patient given results and verbalized understanding of instructions given. Michelle Redman MA Unable to reach patient. Mailbox full/ Please try again later. Angelica Yadav LPN Images from the original note were not included. Please advise patient of prior telephone encounter, Which she has not seen (Think an error with routing initial message) documented in this encounter [facility] 08-05-2024 Telephone encounter Note Unable to reach patient. Mailbox full/ Please try again later. Angelica Yadav LPN [facility] 08-05-2024 Telephone encounter Note Images from the original note were not included. Please advise patient of prior telephone encounter, Which she has not seen (Think an error with routing initial message) [facility] Work Phone: 08-05-2024 Telephone encounter Note Images from the original note were not included. Please advise of above. [facility] Work Phone: 08-05-2024 Miscellaneous Notes Images from the original note were not included. Please advise of above. documented in this encounter [facility] 08-03-2024 Note HNO ID: [id number] Author: YURY WHITE APRN.ERICA Service: ? Author [...] mouth. (Patient not taking: Reported on 05/11/2022) Dpbthoeb-Tf-Lcn-Fe-FA ( VITAMIN) tab Take 1 tablet by [...] MG-30 MG-10 MG (more content not included)... [facility] 08-03-2024 History of Presen t illness [...] mouth. (Patient not taking: Reported on 05/11/2022) Gajcgwxn-Tn-Nme-Fe-FA ( VITAMIN) tab Take 1 tablet by [...] Patient agreeable to treatment plan. Yury White APRN.PLANE CAPTAIN documented in this encounter [facility] 2024 Telephone encounter Note Patient has viewed all results on Nubity. Deborah Keys MA [facility] 2024 Miscellaneous Notes Patient has viewed all results on Nubity. Deborah Keys MA Please contact patient and let her know urine culture reveals no UTI. Follow-up with PCP for persistent symptoms documented in this encounter [facility] 2024 Telephone encounter Note Please contact patient and let her know urine culture reveals no UTI. Follow-up with PCP for persistent symptoms [facility] Work Phone: 07-19-2024 Note HNO ID: [id number] Author: KISHORE RODRÍGUEZ APRN.PLANE CAPTAIN Service: ? Author Type: Nurse Practitioner Type: Progress Notes Filed: 07/19/2024 18:54 Note Text: Subjective HPI A nontoxic appearing female presents to urgent care with chief complaint of possible UTI. Duration of symptoms 3 days. Associated symptoms dysuria, frequency, and urgency. Patient has history of UTIs in past with similar signs and symptoms. Patient denies the use of any dhej-zrl-dysqlgj medications or home remedies for symptom management. [...] mouth. (Patient not taking: Reported on 05/11/2022) Kwqopnlz-Wg-Hcf-Fe-FA ( VITAMIN) tab Take 1 tablet by [...] sounds. Chest: Chest (more content not included)... [facility] 07-19-2024 History of Presen t illness Narrative Images from the original note were not included. Subjective HPI A nontoxic appearing female presents to urgent care with chief complaint of possible UTI. Duration of symptoms 3 days. Associated symptoms dysuria, frequency, and urgency. Patient has history of UTIs in past with similar signs and symptoms. Patient denies the use of any amsh-pil-bebersy medications or home remedies for symptom management. [...] mouth. (Patient not taking: Reported on 05/11/2022) Kkhkpjql-Kf-Vpj-Fe-FA ( VITAMIN) tab Take 1 tablet by [...] of care. This note was generated using MyPublisher software. It may contain errors in wording, punctuation, or spelling. Kishore Rodríguez APRN.CNP documented in this encounter [facility] 07-07-2024 Nicolasa Whittington APRN.CNP - 07/07/2024 9:56 AM EST Images [...] Sinusitis Patient Education What is Sinusitis? Sinusitis [oade-bgf-hgbf-tis] is inflammation of the sinuses or swelling [...] help. You may be instructed to take wgmb-zvd-qgzsbsw medications for symptoms. including fever reducers acetaminophen or ibuprofen, nasal saline spray, cough and cold preparations and decongestants as prescribed by the physician, nurse practitioner or physician assistant professor surgical technology. Self-Care and Prevention: Rest Fluids for hydration Good hand washing Humidifier Avoid smoking and exposure to second hand smoke Avoid sick contacts documented in this encounter [facility] 07-07-2024 Note HNO ID: [id number] Author: NICOLASA DICKENS APRN.PLANE CAPTAIN Service: ? Author Type: Nurse Practitioner Type: [...] mouth. (Patient not taking: Reported on 05/11/2022) Wcskxxhz-Ta-Fgx-Fe-FA ( VITAMIN) tab Take 1 tablet by [...] back: Neck supple (more content not included)... [facility] 07-07-2024 History of Presen t illness [...] mouth. (Patient not taking: Reported on 05/11/2022) Hfbqavpw-Fw-Diy-Fe-FA ( VITAMIN) tab Take 1 tablet by [...] Discussed expected course of illness Nicolasa Dickens APRN.PLANE CAPTAIN documented in this encounter [facility] 07-06-2024 Telephone encounter Note Patient notified. Deborah Keys MA [facility] 07-06-2024 Miscellaneous Notes Patient notified. Deborah Keys MA Please notify that covid/flu/rsv testing negative. Continue with plan of care as discussed during visit. documented in this encounter [facility] 07-06-2024 Telephone encounter Note Please notify that covid/flu/rsv testing negative. Continue with plan of care as discussed during visit. [facility] Work Phone: 07-05-2024 Note HNO ID: [id number] Author: YURY WHITE APRN.ERICA Service: ? Author [...] mouth. (Patient not taking: Reported on 05/11/2022) Ipiflegp-Pw-Gsa-Fe-FA ( VITAMIN) tab Take 1 tablet by [...] Patient agreeable to treatment plan. Yury White APRN.[facility] 07-05-2024 History of Presen t illness Narrative [...] mouth. (Patient not taking: Reported on 05/11/2022) Thnrfcey-Tv-Asg-Fe-FA ( VITAMIN) tab Take 1 tablet by [...] Yury White APRN.ERICA documented in this encounter [facility] 06-06-2024 History of Presen t illness [...] PATIENT PRESENTS WITH AN IMPLANTABLE OR ATTACHED PIT HAND: No RADIOLOGY DEPARTMENT: General X-ray: Exam(s) Completed: Chest X-Ray PERIPHERAL IV DATA: Not applicable SIGNED BY: RT Miriam(R) June 06, 2024 1:20 PM documented in this encounter [facility] 06-06-2024 Note HNO ID: [id number] Author: DILCIA LORD RT(R) Service: ? Author Type: Anodiser Type: Progress Notes Filed: 06/06/2024 13:20 Note [...] PATIENT PRESENTS WITH AN IMPLANTABLE OR ATTACHED PIT HAND: No RADIOLOGY DEPARTMENT: General X-ray: Exam(s) Completed: Chest X-Ray PERIPHERAL IV DATA: Not applicable SIGNED BY: RT Miriam(Roberto) June 06, 2024 1:20 PM [facility] 06-06-2024 Note HNO ID: [id number] Author: VAISHALI JUDGE APRN.ERICA Service: ? Author Type: Nurse Practitioner Type: Progress Notes Filed: 06/06/2024 13:40 Note Text: This note was created using [employer]. Subjective Cedric Hope is a 28 year [...] history is provided by the patient. No thumb sewer was used. URI She complains of cough, [...] mouth. (Patient not taking: Reported on 05/11/2022) Mpdjhkff-Ur-Bki-Fe-FA ( VITAMIN) tab Take 1 tablet by [...] other (Depression) Matern (more content not included)... [facility] 06-06-2024 History of Presen t illness Narrative This note was created using [employer]. Kristen Hope is a 28 year old female. [...] history is provided by the patient. No thumb sewer was used. URI She complains of cough, [...] mouth. (Patient not taking: Reported on 05/11/2022) Ikndiikk-Fb-Sog-Fe-FA ( VITAMIN) tab Take 1 tablet by [...] care with fluids and rest Vaishali Judge APRN.PLANE CAPTAIN documented in this encounter [facility] 05-16-2024 History of Presen t illness Narrative This note was created using [employer]. Subjective Cedric Hope is a 28 year [...] MG CAPSULE - FLUCONAZOLE 150 MG TABLET Andrzej David APRN.CNP documented in this encounter [facility] 05-16-2024 Instructions Andrzej David APRN.CNP - 05/16/2024 8:09 PM EDT [facility] [place] [id number] [place] [id number] Emergency Department Diagnosis: Assessment SINUSITIS: You have [...] or unusual drowsiness. documented in this encounter [facility] 05-11-2022 Instructions Kishore Rodríguez APRN.CNP - [...] sprays and irrigation kits can be purchased mswj-pwz-qrfxbai. Saline mixes can also be purchased or [...] your individual situation. documented in this encounter [facility] 05-11-2022 History of Presen t illness [...] mouth. (Patient not taking: Reported on 05/11/2022) Nwvmfyru-Se-Mmi-Fe-FA ( VITAMIN) tab Take 1 tablet by [...] infection noted. Nose: Congestion present. Mouth/Throat: Lips: [place]. Mouth: Mucous membranes are moist. Pharynx: Oropharynx [...] of care. This note was generated using MyPublisher software. It may contain errors in wording, punctuation, or spelling. Kishore Rodríguez APRN.ERICA documented in this encounter [facility] 10-12-2021 Miscellaneous Notes Patient given results and verbalized understanding of instructions given. Michelle Redman ----- Message from Nicolasa Dickens APRN.CNP sent at 10/10/2021 8:09 AM EDT ----- Please advise patient of negative influenza and COVID test. (result not viewed on MyChart). Nicolasa Dickens APRN.CNP documented in this encounter [facility] 10-21-2016 History of Past i llness [...] 09/28/2016 Overview: 08/26/2016Patient was seen in the [facility] 08/10 for vaginal bleeding and [...] contact with infections but she works at [employer]. A lot of people exposure. control counseling 09/11/2013 017 documented as of this encounter (statuses as of 10/12/2021) [facility] History of Past illness Narrative* Problem [...] 09/28/2016 Overview: 08/26/2016Patient was seen in the [facility] 08/10 for vaginal bleeding and [...] contact with infections but she works at [employer]. A lot of people exposure. control counseling 09/11/2013 017 documented as of this encounter (statuses as of 05/11/2022) [facility] Diagnosis Pharyngitis, unspecified etiology- Primary Viral illness Unspecified viral infection, in conditions classified elsewhere and of unspecified site [facility] Diagnosis Sore throat- Primary Acute pharyngitis Odynophagia Dysphagia, unspecified Cough [facility] Diagnosis Sore throat- Primary Acute pharyngitis Odynophagia Dysphagia, unspecified Bacterial sinusitis- Primary Unspecified sinusitis (chronic) [facility] Diagnosis Sore throat- Primary Acute pharyngitis Odynophagia Dysphagia, unspecified Urinary frequency- Primary Acute cough Encounter for screening examination for sexually transmitted infection URI, acute Acute upper respiratory infections of unspecified site Acute cough [facility] Diagnosis Sore throat- Primary Acute pharyngitis Odynophagia Dysphagia, unspecified Acute cough [facility] Diagnosis Sore throat- Primary Acute pharyngitis Odynophagia Dysphagia, unspecified Sore throat- Primary Acute pharyngitis URI, acute Acute upper respiratory infections of unspecified site [facility] Diagnosis Sore throat- Primary Acute pharyngitis Odynophagia Dysphagia, unspecified Bacterial sinusitis- Primary Unspecified sinusitis (chronic) Feared condition not demonstrated Person with feared complaint in whom no diagnosis was made [facility] Diagnosis Sore throat- Primary Acute pharyngitis Odynophagia Dysphagia, unspecified Burning with urination- Primary Dysuria [facility] Diagnosis Sore throat- Primary Acute pharyngitis Odynophagia Dysphagia, unspecified URI, acute- Primary Acute upper respiratory infections of unspecified site Sore throat Acute pharyngitis documented in this encounter [facility] note* Diagnosis Sore throat- Primary Acute pharyngitis Odynophagia Dysphagia, unspecified Viral URI with cough- Primary Acute upper respiratory infections of unspecified site Flu-like symptoms Other general symptoms documented in this encounter [facility] note* Diagnosis Sore throat- Primary Acute pharyngitis Odynophagia Dysphagia, unspecified Sore throat- Primary Acute pharyngitis documented in this encounter [facility] note* Diagnosis Sore throat- Primary Acute pharyngitis Odynophagia Dysphagia, unspecified Urinary frequency- Primary Screening for STD (sexually transmitted disease) Screening examination for venereal disease Cutaneous skin tags Unspecified hypertrophic and atrophic condition of skin documented in this [facility] Summary Purpose Family History No Family [...] section and content) DATE CREATED AUTHOR 03/04/2020 [facility] DATE CREATED AUTHOR AUTHOR'S ORGANIZ ATION 03/18/2024 [facility] DATE CREATED AUTHOR AUTHOR'S ORGANIZ ATION 05/26/2025 [facility] DATE CREATED AUTHOR AUTHOR'S ORGANIZ ATION 05/30/2025 [facility] Source Comments (unrecognize d section and content) In the event this informatio n is protected by the Federal Confidentiality of Alcohol and Drug Abuse Patient Records regulations: The Federal rules restrict any use of the information to criminally investigate or prosecute any alcohol or drug abuse patient.[facility]In the event this information is protected by the Federal Confidentiality of Alcohol and Drug Abuse Patient Records regulations: The Federal rules restrict any use of the information to criminally investigate or prosecute any alcohol or drug abuse patient.[facility] the event this information is protected by the Federal Confidentiality of Alcohol and Drug Abuse Patient Records regulations: The Federal rules restrict any use of the information to criminally investigate or prosecute any alcohol or drug abuse patient.[facility] the event this information is protected by the Federal Confidentiality of Alcohol and Drug Abuse Patient Records regulations: The Federal rules restrict any use of the information to criminally investigate or prosecute any alcohol or drug abuse patient.[facility] the event this information is protected by the Federal Confidentiality of Alcohol and Drug Abuse Patient Records regulations: The Federal rules restrict any use of the information to criminally investigate or prosecute any alcohol or drug abuse patient.[facility] the event this information is protected by the Federal Confidentiality of Alcohol and Drug Abuse Patient Records regulations: The Federal rules restrict any use of the information to criminally investigate or prosecute any alcohol or drug abuse patient.[facility] the event this information is protected by the Federal Confidentiality of Alcohol and Drug Abuse Patient Records regulations: The Federal rules restrict any use of the information to criminally investigate or prosecute any alcohol or drug abuse patient.[facility] the event this information is protected by the Federal Confidentiality of Alcohol and Drug Abuse Patient Records regulations: The Federal rules restrict any use of the information to criminally investigate or prosecute any alcohol or drug abuse patient.[facility] the event this information is protected by the Federal Confidentiality of Alcohol and Drug Abuse Patient Records regulations: The Federal rules restrict any use of the information to criminally investigate or prosecute any alcohol or drug abuse patient.[facility] the event this information is protected by the Federal Confidentiality of Alcohol and Drug Abuse Patient Records regulations: The Federal rules restrict any use of the information to criminally investigate or prosecute any alcohol or drug abuse patient.[facility] the event this information is protected by the Federal Confidentiality of Alcohol and Drug Abuse Patient Records regulations: The Federal rules restrict any use of the information to criminally investigate or prosecute any alcohol or drug abuse patient.[facility] the event this information is protected by the Federal Confidentiality of Alcohol and Drug Abuse Patient Records regulations: The Federal rules restrict any use of the information to criminally investigate or prosecute any alcohol or drug abuse patient.[facility] the event this information is protected by the Federal Confidentiality of Alcohol and Drug Abuse Patient Records regulations: The Federal rules restrict any use of the information to criminally investigate or prosecute any alcohol or drug abuse patient.[facility] the event this information is protected by the Federal Confidentiality of Alcohol and Drug Abuse Patient Records regulations: The Federal rules restrict any use of the information to criminally investigate or prosecute any alcohol or drug abuse patient.[facility] the event this information is protected by the Federal Confidentiality of Alcohol and Drug Abuse Patient Records regulations: The Federal rules restrict any use of the information to criminally investigate or prosecute any alcohol or drug abuse patient.[facility] the event this information is protected by the Federal Confidentiality of Alcohol and Drug Abuse Patient Records regulations: The Federal rules restrict any use of the information to criminally investigate or prosecute any alcohol or drug abuse patient.[facility] the event this information is protected by the Federal Confidentiality of Alcohol and Drug Abuse Patient Records regulations: The Federal rules restrict any use of the information to criminally investigate or prosecute any alcohol or drug abuse patient.[facility] the event this information is protected by the Federal Confidentiality of Alcohol and Drug Abuse Patient Records regulations: The Federal rules restrict any use of the information to criminally investigate or prosecute any alcohol or drug abuse patient.[facility] Reason for Visit (unrecogniz ed section and content) Reason Comments Results Reason Comments Sinus Problem left ear pain x 1.5 days Specialty Diagnoses / Procedures Referred By Zena khan Referred To Contact Radiology / [facility] Diagnoses Encounter for general adult medical examination without abnormal findings room 3 chest xr Procedures RADIOLOGIC EXAM CHEST 2 VIEWS XR CHEST Self Radio [facility] [address] [place] [address] Referral ID Status Reason Start Date Expiration Date Visits Re quested Visits Authorized [id number] Closed 10/07/2021 07/17/2022 1 1 Reason Comments [...] Care Teams (unrecognized sec tion and content) Director Funeral Relationship Specialty Start Date End Date Austin Castro [address] [place] [address] PCP - General Family Practice 12/18/18 Director Funeral Relationship Specialty Start Date End Date Alecia Rogers [address] [place] [address] PCP - General Family Medicine 05/11/22 Director Funeral Relationship Specialty Start Date End Date Austin Castro MD [facility] [address] [place] [address] PCP - General Family Medicine 12/18/18 05/10/22 Director Funeral Relationship Specialty Start Date End Date Alecia Rogers MD [address] [place] [address] PCP - General Family Medicine 05/11/22 Director Funeral Relationship Specialty Start Date End Date Alecia Rogers MD [address] [place] [address] PCP - General Family Medicine 05/11/22 Director Funeral Relationship Specialty Start Date End Date Alecia Rogers MD [address] [place] [address] PCP - General Family Medicine 05/11/22 Director Funeral Relationship Specialty Start Date End Date Alecia Rogers MD [address] [place] [address] PCP - General Family Medicine 05/11/22 Director Funeral Relationship Specialty Start Date End Date Alecia Rogers MD [address] [place] [address] PCP - General Family Medicine 05/11/22 Director Funeral Relationship Specialty Start Date End Date Alecia Rogers MD [address] [place] [address] PCP - General Family Medicine 05/11/22 Director Funeral Relationship Specialty Start Date End Date Alecia Rogers MD [address] [place] [address] PCP - General Family Medicine 05/11/22 Director Funeral Relationship Specialty Start Date End Date Alecia Rogers MD [address] [place] [address] PCP - General Family Medicine 05/11/22 Director Funeral Relationship Specialty Start Date End Date Alecia Rogers MD [address] [place] [address] PCP - General Family Medicine 05/11/22 Director Funeral Relationship Specialty Start Date End Date Alecia Rogers MD [address] [place] [address] PCP - General Family Medicine 05/11/22 Director Funeral Relationship Specialty Start Date End Date Alecia Rogers MD [address] [place] [address] PCP - General Family Medicine 05/11/22 FOR [...] BE BASED ON THE PRIMARY CLINICAL RECORDS. [facility]. provides no warranty or guarantee of the accuracy or completeness of information in this document.
[2025-06-20 23:34] VITALS: BP 142/72; PULSE 89; RESP 18; TEMP 36.6; O2SAT 99
== END 2025-06-20 23:40 | disposition home or self-care (01) ==
PROVIDERS: Emergency Provider Specialist/Technologist Athletic Trainer; PCP Nurse Practitioner Family; Visit Provider Specialist/Technologist Athletic Trainer
DX: S39.012A Strain of muscle, fascia and tendon of lower back, initial encounter (principal); E11.9 Type 2 diabetes mellitus without complications; Z87.891 Personal history of nicotine dependence; Y99.0 Civilian activity done for income or pay; I10 Essential (primary) hypertension; X58.XXXA Exposure to other specified factors, initial encounter; Y93.89 Activity, other specified; Y92.129 Unspecified place in nursing home as the place of occurrence of the external cause; G47.33 Obstructive sleep apnea (adult) (pediatric); Z99.89 Dependence on other enabling machines and devices; F32.A Depression, unspecified; F41.9 Anxiety disorder, unspecified; Z79.899 Other long term (current) drug therapy; Z90.49 Acquired absence of other specified parts of digestive tract
CPT/HCPCS: 96372; 99282